=== PATIENT | female | born 1955 | race African-American/Black ===

== ENCOUNTER 2016-09-13 07:59 | Inpatient (IN) | payer OTHER ==
[~2016-09-13] VITALS: Ht 160 cm; Wt 64.4 kg
[~2016-09-13 07:59] MED LIST: ACET500T68 PO; ALPR0.25 PO; AMLO5TAB2 PO; AMLO5TAB4 PO; ASPI-482 PO; ASPI325T4 PO; ATOR40TA PO; ATOR40TA59 PO; ATORVASTATIN CA80 MG PO; CARV12.5 PO; CARV12.52 PO; CARV6.25 PO; CEFP100T PO; CEPH-264 PO; CIPR500T94 PO; DOCU100T11 PO; FLUC100T7 PO; FOLI0.8T3 PO; FURO-68 PO; FURO40TA4 PO; HYDR-2666 PO; HYDR-971 PO; HYDR10TA2 PO; INSU100C4 SQ; INSU100I13 SQ; INSU100I17 SQ; INSU100V13 SQ; INSU100V8 SQ; LEVE100S18 PO; LEVE500T56 PO; LEVE500T6 PO; LISI-334 PO; LISI10TA2 PO; Lasix PO; METO10TA81 PO; METO5TAB PO; METO5TAB55 PO; MYCO180T PO; MYCO360T PO; ONDA4SOL PO; PANT40GR PO; PANT40TA3 PO; PHOS250T3 PO; POTA10TA12 PO; PRED5TAB PO; SODI453. PO; TACR0.5C4 PO; TACR0.5P MC; TACR1CAP2 PO; TACR1CAP4 PO; VANC125C2 PO; [UNRECOGNIZED DRUG - OTHER]; [UNRECOGNIZED DRUG - OTHER] PO
--- NOTE | 2016-09-13 08:27 | PHYS DOC ---
Past Medical History Past Medical History: CAD, CHF, Diabetes-Type II, High Cholesterol, Hypertension, Renal Failure, Other Additional Past Medical Histor: MRSA Past Surgical History: Coronary Bypass Surgery, Other Additional Past Surgical Histo: kidney transplant,foot surgery,AV fistula placement Additional Information: quit smoking 1980 Alcohol Use: None Drug Use: None Adult General Chief Complaint Chief Complaint: MECHANICAL FALL HPI HPI Patient is a 61 year old female with history of diabetes, CAD, CHF, and kidney transplant who presents with report of mechanical fall at home. The fall was apparently witnessed by family. She did not lose consciousness. She reportedly fell down approximately 5-[address]. Upon arrival to the emergency department, the patient is unable to provide any details of her fall. She knows that she is at the hospital but repeatedly asks for her family to be contacted to let them know that she is at the hospital. It is unknown if this is her baseline mental status because family has not yet arrived. She complains of pain in the right elbow and reports a headache. She has abrasions to the right elbow and right shoulder. She has old abrasions to the forehead and knees. Review of Systems Review of Systems Respiratory: Denies shortness of breath. [] Cardiovascular: Denies chest pain. [] GI: Denies abdominal pain. [] Musculoskeletal: Denies back pain. Reports right elbow pain. Integument: Denies rash or skin lesions. Reports right elbow abrasion. Neurologic: Denies loss of consciousness. Reports headache. Unable to obtain complete ROS due to patient altered mental status. Current Medications Current Medications Current Medications Medications (Trade) Dose Ordered Sig/[facility] Start Time Stop Time Status Last Admin Dose Admin Fentanyl Citrate (Fentanyl 2ml Vial) 50 mcg PRN Q2HR PRN 09/13/16 10:45 09/14/16 10:44 Allergies Allergies Allergies Coded Allergies Type Severity Reaction Last Updated Verified I S O L A T I O N *CONTACT* Allergy Unknown 02/17/16 Yes No Known Medication Allergies Allergy Unknown 02/17/16 Yes Physical Exam Physical Exam Constitutional: Well developed, well nourished, no acute distress, non-toxic appearance. [] HENT: Normocephalic, atraumatic, oropharynx moist. Frequent lip smacking. Edentulous. Eyes: PERRLA, EOMI, conjunctiva normal, no discharge. [] Neck: Normal range of motion, no tenderness, supple, no stridor. C-collar applied. Cardiovascular: Heart rate regular rhythm, no murmur. [] Lungs & Thorax: Bilateral breath sounds clear to auscultation without wheezes, rales, or rhonchi. [] Abdomen: Bowel sounds normal, soft, no tenderness, no masses, no pulsatile masses. [] Skin: Warm, dry, no erythema, no rash. Abrasions to the right elbow lateral epicondyle and right shoulder over the A/C joint. Healing abrasions to the left forehead and left knee. Back: No midline tenderness, no CVA tenderness. [] Extremities: Right elbow tenderness, ROM intact, no edema. 2+ radial and ulnar pulses on the right. 2+ DP pulses bilaterally in the legs. There is mild deformity of the right wrist. Less than 2 second capillary refill in the fingers distally. Light touch sensation intact distally. There is an AV fistula in the left arm with palpable thrill. Neurologic: Alert and oriented X 2, normal motor function, normal sensory function. Decreased effort of left leg raise, however she can move the leg. It is uncertain if this is due to true neurologic deficit or difficulty following directions due to altered mental status. The patient must be redirected frequently to perform neurologic assessment tasks. She asks repetitive questions. Psychologic: Affect normal, judgement normal, mood normal. [] Current Patient Data Vital Signs Vital Signs Date Time Temp Pulse Resp B/P Pulse Ox O2 Delivery O2 Flow Rate FiO2 09/13/16 11:19 78 18 174/77 100 Room Air 09/13/16 08:06 97.6 97.6 Lab Values Laboratory Tests Test 09/13/16 08:40 09/13/16 08:55 Urine Collection Type U cath Urine Color Yellow Urine Clarity Clear Urine pH 5.5 Urine Specific [place] 1.015 Urine Protein Negativemg/dL (NEG-TRACE) Urine Glucose (UA) 250mg/dL (NEG) Urine Ketones (Stick) Negativemg/dL (NEG) Urine Blood Negative (NEG) Urine Nitrite Negative (NEG) Urine Bilirubin Negative (NEG) Urine Urobilinogen Dipstick 0.2mg/dL (0.2 mg/dL) Urine Leukocyte Esterase Negative (NEG) Urine RBC 0/HPF (0-2) Urine WBC 0/HPF (0-4) Urine Bacteria 0/HPF (0-FEW) White Blood Count 8.3x10^3/uL (4.0-11.0) Red Blood Count 4.51x10^6/uL (3.50-5.40) Hemoglobin 11.8g/dL (12.0-15.5) L Hematocrit 37.5% (36.0-47.0) Mean Corpuscular Volume 83fL (79-100) Mean Corpuscular Hemoglobin 26pg (25-35) Mean Corpuscular Hemoglobin Concent 32g/dL (31-37) Red Cell Distribution Width 15.7% (11.5-14.5) H Platelet Count 257x10^3/uL (140-400) Neutrophils (%) (Auto) 76% (31-73) H Lymphocytes (%) (Auto) 15% (24-48) L Monocytes (%) (Auto) 7% (0-9) Eosinophils (%) (Auto) 1% (0-3) Basophils (%) (Auto) 1% (0-3) Neutrophils # (Auto) 6.3x10^3uL (1.8-7.7) Lymphocytes # (Auto) 1.2x10^3/uL (1.0-4.8) Monocytes # (Auto) 0.6x10^3/uL (0.0-1.1) Eosinophils # (Auto) 0.1x10^3/uL (0.0-0.7) Basophils # (Auto) 0.1x10^3/uL (0.0-0.2) Prothrombin Time 12.6SEC (11.7-14.0) Prothrombin Time INR 1.0 (0.8-1.1) Sodium Level 137mmol/L (136-145) Potassium Level 4.9mmol/L (3.5-5.1) Chloride Level 100mmol/L (98-107) Carbon Dioxide Level 27mmol/L (21-32) Anion Gap 10 (6-14) Blood Urea Nitrogen 59mg/dL (7-20) H Creatinine 1.9mg/dL (0.6-1.0) H Estimated GFR (Cockcroft-Gault) 32.3 BUN/Creatinine Ratio 31 (6-20) H Glucose Level 361mg/dL (70-99) H Calcium Level 10.5mg/dL (8.5-10.1) H Magnesium Level 2.3mg/dL (1.8-2.4) Total Bilirubin 0.2mg/dL (0.2-1.0) Aspartate Amino Transferase (AST) 20U/L (15-37) Alanine Aminotransferase (ALT) 26U/L (14-59) Alkaline Phosphatase 90U/L (46-116) Creatine Kinase 59U/L (26-192) Creatine Kinase MB (Mass) 1.1ng/mL (0.0-3.6) Creatine Kinase MB Relative Index % (0-4) Troponin I Quantitative < 0.017ng/mL (0.000-0.055) RQ-Yyf-L-Type Natriuretic Peptide 787pg/mL (0-124) H Total Protein 7.3g/dL (6.4-8.2) Albumin 3.6g/dL (3.4-5.0) Albumin/Globulin Ratio 1.0 (1.0-1.7) Laboratory Tests 09/13/16 08:55 Laboratory Tests 09/13/16 08:55 EKG EKG EKG at 0844. Heart rate 78 bpm. Radiology/Procedures Radiology/Procedures REASON: AMS PATIENT FELL DOWN STAIRS PROCEDURE: WRIST 3V RIGHT Indication fall, pain. AP oblique and lateral views of the right wrist were obtained. There are traumatic fractures of the radial and ulnar metaphysis. There is an oblique fracture of the ulnar metaphysis with an associated ulnar styloid fracture. Slightly comminuted fracture of the radial metaphysis is noted. There is some impaction and angulation associated with the fracture fragments. Vascular calcification is noted. IMPRESSION: Traumatic fractures of the radial and ulnar metaphyses as outlined above REASON: AMS PATIENT FELL DOWN STAIRS TODAY PROCEDURE: ELBOW RIGHT 3V Indication pain associated with a fall. AP oblique and lateral views of the right elbow were obtained. No bony abnormality is seen. Significant joint fluid is not apparent. REASON: AMS PATIENT FELL DOWN STAIRS PROCEDURE: SHOULDER 2+V RIGHT Indication fall, pain. Internally and externally rotated views of the right shoulder as well as as a Y view were obtained. No fracture or acute bony finding is seen. A nodule in the right chest is noted similar to an examination 07/27/2016. IMPRESSION:: No acute bony finding REASON: AMS PATIENT FELL DOWN STAIRS TODAY PROCEDURE: PORTABLE CHEST 1V Indication change in mental status. Suspect CVA. Fall. Protocol study. A single view of the chest was obtained and is compared to an examination 07/27/2016. The heart and pulmonary vessels appear normal. The lungs are clear. There is no significant change in the appearance of the chest compared to the previous exam. A nodule in the right chest is noted similar to the previous exam. IMPRESSION: No acute finding apparent in the chest REASON: fall, AMS PROCEDURE: HEAD AND CERVICAL SPINE WO Indication change in mental status. Fall. Closed head injury. The head and cervical spine were evaluated. Images of the cervical spine were reformatted in the coronal and sagittal planes. The head is compared to an examination 02/16/2016. CT head: Findings Acute calvarial finding is not seen. Small polyps or retention cysts are noted in the right maxillary sinus. There is no subdural or epidural hematoma. Encephalomalacic area in the right parietal lobe, near the vertex, is noted appearing similar. An acute intracranial finding is not seen. A significant change when compared to the prior exam is not apparent. CT cervical spine: Findings. The lung apices are clear. There are nodules seen associated with the thyroid. These appear similar to an examination 03/16/2016 and could be further evaluated with ultrasound if clinically warranted. A significant soft tissue finding in the neck is not seen. Review of axial images demonstrates mild degenerative changes. Acute finding is not seen. Review of reformatted images in coronal and sagittal planes demonstrate similar findings. Small osteophytes are seen at multiple levels appearing similar to the examination 02/26/2016. IMPRESSION: Chronic changes in the cervical spine. No acute finding seen. Intracranially there are chronic changes. No acute finding is seen Thyroid nodules. Course & Med Decision Making Course & Med Decision Making Pertinent Labs and Imaging studies reviewed. (See chart for details) Patient is a 61-year-old female presents with report of mechanical fall down 5- 6 carpeted steps, witnessed by family at home. EMS reported that she did not lose consciousness. Upon arrival to the emergency department, the patient appears to have altered mental status. She is alert to self and place. She complains of headache and right elbow pain with abrasions to the right elbow and right shoulder. Family arrived at the bedside and reported that she did hit her head and did have a loss of consciousness. She was reportedly unresponsive for a few minutes with continued respiration. They report that she has frequent falls and is sometimes confused. She usually walks with a cane but refuses to use a walker. Evaluation in the emergency department reveals a comminuted fracture of the distal right radius and ulna. A sugar tong Ortho-Glass splint was applied to immobilize the fracture. There are no abnormalities on x-rays of the shoulder, elbow, or chest. CT of the head and C-spine are negative for acute changes. C- collar was removed after negative C-spine CT result. Patient's creatinine is elevated at 1.9, above her baseline. She is also a kidney transplant recipient. Initial troponin level is negative. There are no other significant laboratory abnormalities. The patient is admitted to the hospital by Dr. Moran, her primary care physician. He requests orthopedic consultation for the wrist fracture. This was added with admission bridge orders. The patient remained stable while in the emergency department. Dragon Disclaimer Dragon Disclaimer This electronic medical record was generated, in whole or in part, using a voice recognition dictation system. Departure Departure Impression: Primary Impression: Altered mental status Additional Impressions: Acute on chronic renal insufficiency Fracture of radius and ulna near wrist Disposition: 09 ADMITTED INPATIENT Admitting Physician: Augusto Moran Condition: STABLE Referrals: AUGUSTO MORAN MD (PCP) Problem Qualifiers Primary Impression: Altered mental status Altered mental status type: disorientation Qualified Code: R41.0 - Disorientation, unspecified Additional Impressions: Fracture of radius and ulna near wrist Encounter type: initial encounter Fracture type: closed Laterality: right Qualified Code: S52.501A - Unspecified fracture of the lower end of right radius, initial encounter for closed fracture JUAN F BOWERS Sep 13, 2016 08:27
--- NOTE | 2016-09-13 08:59 | ACF ---
Admission Forms Criteria MENTAL STATUS CHANGE Clinical Indications for Inpatient Care (Place 'X' for any and all applicable criteria): Ongoing inpatient care may be needed for ANY ONE of the following(1)(2)(3)(5)(6) : [X]I. Suspected serious etiology (eg, medical disorder, DOUBLE END TENONER SETTER event) of mental status change [ ]II. Danger to self or others not manageable at lower level of care [ ]III. Grave disability (eg, inability to perform self care necessary at lower level of care) [ ]IV. Agitation or inappropriate behavior interfering with care for primary condition (eg, attempting to discontinue lines or drains prematurely, unable to cooperate with respiratory care) [ ]V. Delirium [A] [D][E] as described by ANY ONE of the following(26): [ ]a) Delirium due to alcohol or sedative [F] withdrawal [ ]b) Delirium of uncertain etiology that has not responded to appropriate empiric treatment [ ]c) Delirium that prevents performance of a life-sustaining function (eg, feeding or hydrating oneself) [ ]. General contraindications and/or Inappropriate clinical situations for Observational Care in patients with Mental Status Change, when ANY ONE of the following is required: [ ]a) Prediction of prolongation of LOS based on ANY ONE of the following may be considered as a contraindication for observational care 2, 3, 4, 5, 6, 7, 8, 9, 10, 11 [ ]i) Age > 65 yrs. [ ]ii) Patient arriving by ambulance [ ]iii) Patient with high acuity [ ]iv) Patient requiring vital sign monitoring [ ]v) Patient on IV medication [ ]b) Systolic blood pressures 180mmHg 3,12 [ ]c) Patient with altered mental status including delirium and other alteration of consciousness, (3) [ ]d) Patient whose discharge disposition will be to a longterm home or rehabilitation home should not be managed in Emergency Department Observation Unit. CMS rule requires 3 days hospital stay before such placement.3,13 [ ]e) Patient with failure to thrive due to broad array of etiologies 3,16,17 [ ]f) Inability to ambulate 3,14 Extended stay beyond goal length of stay for the primary condition may be needed until ALL of the following are present(3)(5): [ ]a) Underlying medical etiology of mental status change is absent, or has been established and adequately treated [ ]b) Danger to self or others is absent or manageable at lower level of care. [ ]c) Behavior crisis management, including physical or chemical restraints, is not required or available at lower level of car [ ]d) Substance or alcohol withdrawal is absent or manageable at lower level of care. [ ]e) Behavioral symptoms (eg, agitation, somnolence, inappropriate behavior) are absent, or are manageable at lower level of care. The original [facility] content created by [facility] has been revised. The portions of the content which have been revised are identified through the use of italic text or in bold, and [facility] has neither reviewed nor approved the modified material. All other unmodified content is copyright [facility]. Please see references footnoted in the original [facility] edition 2016 Admission Criteria Met?: Yes JUAN J NGUYEN Sep 13, 2016 08:59
--- NOTE | 2016-09-13 09:01 | RAD ---
Indication fall, pain. AP oblique and lateral views of the right wrist were obtained. There are traumatic fractures of the radial and ulnar metaphysis. There is an oblique fracture of the ulnar metaphysis with an associated ulnar styloid fracture. Slightly comminuted fracture of the radial metaphysis is noted. There is some impaction and angulation associated with the fracture fragments. Vascular calcification is noted. IMPRESSION: Traumatic fractures of the radial and ulnar metaphyses as outlined above
--- NOTE | 2016-09-13 09:04 | RAD ---
Indication fall, pain. Internally and externally rotated views of the right shoulder as well as as a Y view were obtained. No fracture or acute bony finding is seen. A nodule in the right chest is noted similar to an examination 07/27/2016. IMPRESSION:: No acute bony finding
--- NOTE | 2016-09-13 09:08 | RAD ---
Indication pain associated with a fall. AP oblique and lateral views of the right elbow were obtained. No bony abnormality is seen. Significant joint fluid is not apparent.
--- NOTE | 2016-09-13 09:11 | RAD ---
Indication change in mental status. Suspect CVA. Fall. Protocol study. A single view of the chest was obtained and is compared to an examination 07/27/2016. The heart and pulmonary vessels appear normal. The lungs are clear. There is no significant change in the appearance of the chest compared to the previous exam. A nodule in the right chest is noted similar to the previous exam. IMPRESSION: No acute finding apparent in the chest
[2016-09-13 09:20] LABS: CALCIUM 10.5 mg/dL (8.5-10.1); CREATININE 1.9 mg/dL (0.6-1.0); GFR 32.3; POTASSIUM 4.9 mmol/L (3.5-5.1)
[2016-09-13 09:26] LABS: ALBUMIN 3.6 g/dL (3.4-5.0); MAGNESIUM 2.3 mg/dL (1.8-2.4); TOTAL BILIRUBIN 0.2 mg/dL (0.2-1.0); TOTAL PROTEIN 7.3 g/dL (6.4-8.2)
--- NOTE | 2016-09-13 09:27 | EKG ---
[facility] [address] [place] [address] Test Date: 2016-09-13 Test Time: 08:44:33 Pat Name: DIANA WATERS Department: Room: Gender: F Pipelaying Fitter: : [id number] Requested By: JUAN F BOWERS Order Number: [id number] Reading MD: Sandra Solis Measurements Intervals [place] Rate: 78 P: 36 NV: 150 QRS: 19 QRSD: 112 T: 141 QT: 386 QTc: 444 Interpretive Statements SINUS RHYTHM LEFT ATRIAL ABNORMALITY LVH WITH REPOLARIZATION ABNORMALITY ALSO CONSIDER MYOCARDIAL ISCHEMIA RI6.01 Unconfirmed report Compared to ECG 04/27/2016 19:28:16 Electronically Signed On 09-15-2016 23:56:28 [employer] MANAGER by Sandra Solis
[2016-09-13 09:34] LABS: CKMB MASS 1.1 ng/mL (0.0-3.6); CREATINE KINASE 59 U/L (26-192)
--- NOTE | 2016-09-13 09:39 | RAD ---
Indication change in mental status. Fall. Closed head injury. The head and cervical spine were evaluated. Images of the cervical spine were reformatted in the coronal and sagittal planes. The head is compared to an examination 02/16/2016. CT head: Findings Acute calvarial finding is not seen. Small polyps or retention cysts are noted in the right maxillary sinus. There is no subdural or epidural hematoma. Encephalomalacic area in the right parietal lobe, near the vertex, is noted appearing similar. An acute intracranial finding is not seen. A significant change when compared to the prior exam is not apparent. CT cervical spine: Findings. The lung apices are clear. There are nodules seen associated with the thyroid. These appear similar to an examination 03/16/2016 and could be further evaluated with ultrasound if clinically warranted. A significant soft tissue finding in the neck is not seen. Review of axial images demonstrates mild degenerative changes. Acute finding is not seen. Review of reformatted images in coronal and sagittal planes demonstrate similar findings. Small osteophytes are seen at multiple levels appearing similar to the examination 02/26/2016. IMPRESSION: Chronic changes in the cervical spine. No acute finding seen. Intracranially there are chronic changes. No acute finding is seen Thyroid nodules. PQRS Compliance Statement: One or more of the following individualized dose reduction techniques were utilized for this examination: 1. Automated exposure control 2. Adjustment of the mA and/or kV according to patient size 3. Use of iterative reconstruction technique
[2016-09-13 09:49] LABS: BILIRUBIN,URINE NEGATIVE (NEG); GLUCOSE,URINE 250 mg/dL (NEG); NITRITE,URINE NEGATIVE (NEG); PH,URINE 5.5; PROTEIN,URINE NEGATIVE (NEG-TRACE); UROBILINOGEN,URINE 0.2 mg/dL (0.2 mg/dL)
[2016-09-13 09:50] LABS: BASO # 0.1 x10^3/uL (0.0-0.2); BASO % 1 % (0-3); EOS % 1 % (0-3); HEMATOCRIT 37.5 % (36.0-47.0); HEMOGLOBIN 11.8 g/dL (12.0-15.5); LYMPH # 1.2 x10^3/uL (1.0-4.8); LYMPH % 15 % (24-48); MEAN CORPUSCULAR HEMOGLOBIN 26 pg (25-35); MEAN CORPUSCULAR HGB CONC 32 g/dL (31-37); MEAN CORPUSCULAR VOLUME 83 fL (79-100); MONO % 7 % (0-9); NEUT % 76 % (31-73); PLATELET COUNT 257 x10^3/uL (140-400); RED BLOOD COUNT 4.51 x10^6/uL (3.50-5.40); RED CELL DISTRIBUTION WIDTH 15.7 % (11.5-14.5); WHITE BLOOD COUNT 8.3 x10^3/uL (4.0-11.0)
[2016-09-13 10:12] LABS: BACTERIA,URINE 0 /HPF (0-FEW); RBC,URINE 0 /HPF (0-2); WBC,URINE 0 /HPF (0-4)
[2016-09-13 10:13] LABS: PROTHROMBIN TIME PATIENT 12.6 SEC (11.7-14.0)
[2016-09-13] MEDS ORDERED: FENTANYL PF 100 MCG/2 ML VIAL. IV PRN ×2 (10:15→10:45)
[2016-09-13 12:50] VITALS: BP 122/86
[2016-09-13 13:02] VITALS: BP 122/36
[2016-09-13] MEDS ORDERED: FURO-68 PO (14:17)
[2016-09-13] MEDS ORDERED: HYDR-2679 PO (14:17)
[2016-09-13 14:52] VITALS: BP 127/55
[2016-09-13] MEDS ORDERED: INSULIN ASPART 300 UNITS/3 ML INSULN.PEN SQ ONE (17:30)
[2016-09-13 19:20] VITALS: BP 120/56
[2016-09-13] MEDS ORDERED: ALPRAZOLAM 0.25 MG TABLET PO PRN (19:30)
[2016-09-13] MEDS ORDERED: DEXTROSE 50% 25 GM / 50ML DISP.SYRIN. IV PRN (19:45)
[2016-09-13] MEDS: IV NORMAL SALINE 1000ML BAG 1,000 ML IV SCH (21:06)
[2016-09-13] MEDS: MYCOPHENOLATE ACID 180 MG TABLET.DR. PO SCH (21:06)
[2016-09-13] MEDS: ATORVASTATIN CALCIUM 40 MG TABLET. PO SCH (21:06)
[2016-09-13] MEDS: HYDROCODONE/APAP 7.5/325MG TABLET. PO PRN (21:07)
[2016-09-13] MEDS: TACROLIMUS 0.5 MG CAPSULE PO SCH (21:07)
[2016-09-13] MEDS: LEVETIRACETAM 500 MG TABLET PO SCH (21:07)
[2016-09-13] MEDS: INSULIN DETEMIR 300 UNITS/3 ML INSULN.PEN. SQ SCH (21:21)
[2016-09-13 23:20] VITALS: BP 115/36
[2016-09-14] VITALS (13 sets, daily range): BP systolic 98–141; BP diastolic 41–75
[2016-09-14] MEDS: IV NORMAL SALINE 1000ML BAG 1,000 ML IV SCH ×2 (05:30→15:53)
[2016-09-14] MEDS ORDERED: MORPHINE SULFATE 2 MG/ML DISP.SYRIN. IV PRN (07:00)
[2016-09-14] MEDS ORDERED: LIDOCAINE 1% 1 ML SYRINGE. ID PRN (07:00)
[2016-09-14] MEDS ORDERED: HYDROMORPHONE 2 MG/ML VIAL. IV PRN (07:00)
[2016-09-14] MEDS: PANTOPRAZOLE 40 MG TABLET. PO SCH (07:00)
[2016-09-14] MEDS ORDERED: IV RINGERS,LACTATED 1000ML 1,000 ML IV SCH (07:00)
[2016-09-14] MEDS: CARVEDILOL 12.5 MG TABLET PO SCH ×2 (07:05→17:53)
[2016-09-14] MEDS: INSULIN ASPART 300 UNITS/3 ML INSULN.PEN SQ SCH ×7 (07:30→18:02)
[2016-09-14] MEDS: METOCLOPRAMIDE 5 MG TABLET PO SCH ×3 (07:30→17:52)
[2016-09-14] MEDS ORDERED: FENTANYL PF 100 MCG/2 ML VIAL. ONE (07:52)
[2016-09-14] MEDS ORDERED: DEXAMETHASONE SOD PHOS 20 MG/5 ML VIAL. ONE (07:53)
[2016-09-14] MEDS ORDERED: LIDOCAINE 2% 100 MG/5 ML DISP.SYRIN. ONE (07:53)
[2016-09-14] MEDS ORDERED: ONDANSETRON PF 4 MG/2 ML VIAL. ONE (07:53)
[2016-09-14] MEDS ORDERED: SEVOFLURANE 61 TO 120 MINUTES. IH ONE (07:53)
[2016-09-14] MEDS ORDERED: PROPOFOL 20 ML IV ONE (07:53)
[2016-09-14] MEDS ORDERED: INSULIN ASPART 300 UNITS/3 ML INSULN.PEN SQ ONE (08:00)
[2016-09-14] MEDS ORDERED: CEFAZOLIN 1GM IVPB FOR OMNI 50 ML IV ONE (08:14)
[2016-09-14] MEDS ORDERED: INSULIN ASPART 100 UNIT/ML 10ML VIAL. SQ ONE (08:15)
[2016-09-14] MEDS ORDERED: EPHEDRINE PF IN SALINE 50 MG/5 ML DISP.SYRIN. IV ONE (08:32)
[2016-09-14 08:35] LABS: BASO # 0.1 x10^3/uL (0.0-0.2); BASO % 1 % (0-3); EOS % 2 % (0-3); HEMATOCRIT 35.5 % (36.0-47.0); HEMOGLOBIN 10.9 g/dL (12.0-15.5); LYMPH # 1.9 x10^3/uL (1.0-4.8); LYMPH % 20 % (24-48); MEAN CORPUSCULAR HEMOGLOBIN 26 pg (25-35); MEAN CORPUSCULAR HGB CONC 31 g/dL (31-37); MEAN CORPUSCULAR VOLUME 85 fL (79-100); MONO % 11 % (0-9); NEUT % 67 % (31-73); PLATELET COUNT 211 x10^3/uL (140-400); RED BLOOD COUNT 4.17 x10^6/uL (3.50-5.40); WHITE BLOOD COUNT 9.1 x10^3/uL (4.0-11.0)
[2016-09-14 08:45] LABS: CREATININE 1.6 mg/dL (0.6-1.0); GFR 39.4; POTASSIUM 4.3 mmol/L (3.5-5.1)
[2016-09-14 08:52] LABS: CHOLESTEROL/HDL RATIO 3.9
[2016-09-14] MEDS: MYCOPHENOLATE ACID 180 MG TABLET.DR. PO SCH ×2 (09:00→20:45)
[2016-09-14] MEDS: LEVETIRACETAM 500 MG TABLET PO SCH ×2 (09:00→20:45)
[2016-09-14] MEDS ORDERED: FLUCONAZOLE 100 MG TABLET. PO SCH (09:00)
[2016-09-14] MEDS: FLUCONAZOLE 100 MG TABLET. PO SCH (09:00)
[2016-09-14] MEDS ORDERED: BUPIVACAINE 0.25% 50 ML VIAL. ONE (09:16)
--- NOTE | 2016-09-14 10:12 | PDOC ---
Provider Note Provider Note Pt seen.H&P dictated. #[id number] AUGUSTO BRUNER MD Sep 14, 2016 10:12
[2016-09-14] MEDS: LISINOPRIL 10 MG TABLET PO SCH (13:05)
[2016-09-14] MEDS: FOLIC/VIT B COMP W-C (RENAL) TABLET. PO SCH (13:05)
[2016-09-14] MEDS: PREDNISONE 5 MG TABLET PO SCH (13:06)
[2016-09-14] MEDS: TACROLIMUS 1 MG CAPSULE PO SCH (13:09)
--- NOTE | 2016-09-14 15:13 | HP ---
ADMIT DATE: 09/13/2016 LOCATION: [id number]. REASON FOR ADMISSION TO THE HOSPITAL: Mechanical fall, right wrist fracture. HISTORY OF PRESENT ILLNESS: The patient is a 61-year-old female, history of previous strokes, diabetes, insulin-dependent, bypass surgery, kidney transplant. She also has on and off confusion. She had a fall at home and fell down approximately 6 steps. X-ray showed wrist fracture. The patient was admitted to the hospital, seen by Orthopedics. The patient is scheduled for surgery today. PAST MEDICAL HISTORY: As mentioned, the patient has history of kidney transplant, hypertension, hyperlipidemia, heart bypass surgery, previous stroke. She also had histoplasmosis of the lung. PAST SURGICAL HISTORY: Had a kidney transplant, bypass surgery, AV fistulas, foot surgery, and bronchoscopy. PERSONAL HISTORY: History of smoking in the past, quit in 1980. Denies alcohol or street drugs. FAMILY HISTORY: Positive for diabetes, hypertension, kidney problems. SOCIAL HISTORY: She lives at home with her daughter. ALLERGIES: No known allergies. MEDICATIONS AT HOME: The patient is on aspirin 325 daily, Lasix 40 mg daily, Xanax 0.25 twice a day, atorvastatin 40 mg daily, Coreg 6.25 two tablets that is 12.5 mg twice a day, Diflucan 200 mg daily, folic acid, B complex daily, hydrocodone 1 q. 6, insulin Novolog 15 units 3 times daily, Levemir 40 units at bedtime, Keppra 500 mg twice a day, lisinopril 10 mg daily, Reglan 5 mg twice a day, mycophenolate 180 mg twice a day, Protonix 40 mg daily, prednisone 5 mg daily, Prograf 1 mg daily and 0.5 mg at bedtime. REVIEW OF SYMPTOMS: The patient has some confusion on and off. Denies any chest pain, shortness of breath, or nausea or vomiting. Rest of the 14 systems reviewed, negative. PHYSICAL EXAMINATION: VITAL SIGNS: At the time of admission showed temperature 97, pulse 80, respirations 17, blood pressure 127/55, 99 on room air. HEENT: Head is atraumatic. Pupils are equal. Oral cavity: No teeth. Dentures. NECK: Supple. Thyroid not enlarged. JVD not elevated. CHEST: Symmetrical, scar of heart surgery. LUNGS: Clear to auscultation. ABDOMEN: Soft. No mass palpable. Scar in the right lower abdomen from previous kidney transplant. EXTERNAL GENITALIA: No Mcl[place]. RECTAL: Deferred. EXTREMITIES: Scar in the ankle on the right. No edema, no calf tenderness. The patient has a splint, as well as tenderness and swelling in the right wrist area. LABORATORY DATA: Shows a white count of 8, hemoglobin 12, platelets 257. Electrolytes show sodium 137, potassium 4.9, chloride 100, bicarb 27, BUN 59, creatinine 1.9, glucose 361, magnesium 2.3. LFTs were normal. INR is 1.0. Urine was negative for nitrites and leuk esterase, WBC. CT of the head was negative for fracture. CT of the spine negative for fractures. X-ray of the shoulder negative. Right wrist shows fracture of the distal radial and ulnar metaphysis. Chest x-ray was negative. EKG with no acute ischemic changes. FINAL IMPRESSION: 1. Mechanical fall at home. 2. Right wrist fracture secondary to fall. 3. History of kidney transplant. 4. Diabetes, insulin-dependent. 5. History of previous stroke. 6. Coronary artery disease, history of bypass surgery. 7. Hypertension. 8. Hyperlipidemia. 9. Brittle diabetes. 10. History of histoplasmosis of the lung, on chronic suppressive treatment. PLAN: At this time, admit to hospital. Seen by Orthopedics, scheduled for surgery. Continue hydration, hold aspirin anticipating surgery. Hold Lasix because of the slight worsening of the kidney failure. We will monitor and see how she does and see how she improves. AUGUSTO BRUNER MD DR: DENISE/jeanie JOB#: [id number] / [id number] FERNANDO
[2016-09-14] MEDS: TACROLIMUS 0.5 MG CAPSULE PO SCH (20:45)
[2016-09-14] MEDS: ATORVASTATIN CALCIUM 40 MG TABLET. PO SCH (20:45)
[2016-09-14] MEDS: INSULIN DETEMIR 300 UNITS/3 ML INSULN.PEN. SQ SCH (20:50)
[2016-09-15] VITALS (7 sets, daily range): BP systolic 118–184; BP diastolic 57–110
[2016-09-15] MEDS: IV NORMAL SALINE 1000ML BAG 1,000 ML IV SCH ×3 (01:30→21:49)
--- NOTE | 2016-09-15 01:52 | OP ---
DATE OF SURGERY: 09/14/2016 PREOPERATIVE DIAGNOSIS: Displaced 3-part intraarticular right distal radius fracture. POSTOPERATIVE DIAGNOSIS: Displaced 3-part intraarticular right distal radius fracture. PROCEDURE: Operative reduction internal fixation 3 plus part intraarticular right distal radius fracture. SURGEON: Jonathan Heart M.D. ANESTHESIA: General endotracheal. ESTIMATED BLOOD LOSS: 10 mL. COMPLICATIONS: None. OPERATIVE INDICATIONS: The patient is a 61-year-old female with chronic renal failure, status post kidney implant, insulin-dependent diabetes as well as multiple medical issues that had broken her right dominant wrist in a fall. I had gone over with her risks, benefits, postoperative course of operative treatment, volar locked plating, possibility of infection, nerve or blood vessel damage, nonhealing, medical or other anesthetic complications among others and even under the best of circumstances possibility of continued pain, stiffness and possibility of nonhealing as well as of premature degenerative changes, possible to wrist. I had explained to her also that typically these possible complications would be minimized by anatomic reduction as possible. All her questions were answered. Consent was obtained that she agrees to proceed with operative evaluation and treatment. OPERATIVE TECHNIQUE: The patient was identified, procedure verified. The patient placed in the supine position on the operating table with a tourniquet placed on the right upper arm. After timeout was performed, the patient and procedure identified and verified, the right upper extremity was previously prepped and draped in standard sterile fashion and was then exsanguinated by Esmarch bandage. Tourniquet inflated to 250 mmHg and a standard Bran volar approach was carried out to the right distal radius. The subperiosteal dissection was carried out and a small narrow Biomet distal radial locking plate was held in place with a 3.5 bicortical screw in the sliding hole. Plate was positioned as desired fluoroscopically and reduction was obtained and the placement distally checked as well as reduction maintained with a K-wire in the distal portion of plate. Distal locking screws were placed under fluoroscopic guidance and verified to be in good position in the radial styloid and supportive, but not in the joint surface. Proximal row screws were then placed as well and the shaft screws were used in a nonlocking fashion to complete the fixation. Excellent fixation noted under fluoroscopic guidance. The ulna was noted to be as well positioned with anatomic reduction under fluoroscopic guidance as well. Thorough irrigation carried out with normal saline solution. Subcutaneous closure accomplished with buried Vicryl sutures, subcuticular Monocryl, Steri-Strips and Mastisol were placed followed by a fiberglass volar splint. Fingers were noted to be warm and pink following deflation of the tourniquet after a total tourniquet time of approximately one hour. The patient was extubated and transferred to postop holding in stable condition having tolerated the procedure well. JONATHAN HEART MD DR: FER/jeanie JOB#: [id number] / [id number]
--- NOTE | 2016-09-15 06:34 | PDOC ---
BETTYGretchenDARIA LOCKE EDI COORDINATOR 09/15/16 0634: IM PROGRESS NOTES- Subjective Subjective awake, OOB to chair, pain R arm continues Objective Objective no distress Vitals Vital Signs Date Time Temp Pulse Resp B/P Pulse Ox O2 Delivery O2 Flow Rate FiO2 09/15/16 02:56 98.0 85 18 118/68 100 Room Air 98.0 09/14/16 09:58 10 Input & Output Intake and Output 09/15/16 07:00 Intake Total 1800 ml Output Total 1150 ml Balance 650 ml Intake Oral 1150 ml IV Total 650 ml Output Urine Total 1150 ml Estimated Blood Loss 0 ml Physical Exam Physical Exam General appearance - alert, well appearing, and in no distress Mental Status - alert, oriented to person, place, and time, affect appropriate to mood Head - normal Chest - clear to auscultation, no wheezes, rales or rhonchi Heart - S1 and S2 normal Abdomen - soft, nontender, nondistended, BS+ Neurological -no acute focal neurological deficits noted Musculoskeletal - no muscular tenderness noted Extremities - no pedal edema Cast R lower forearm, fingers cool (bilaterally), minimal swelling, +sensation/movement Skin - warm and dry Labs Laboratory Tests Test 09/13/16 08:40 09/13/16 08:55 09/13/16 17:05 09/13/16 18:30 Urine Collection Type U cath Urine Color Yellow Urine Clarity Clear Urine pH 5.5 Urine Specific [place] 1.015 Urine Protein Negativemg/dL (NEG-TRACE) Urine Glucose (UA) 250mg/dL (NEG) Urine Ketones (Stick) Negativemg/dL (NEG) Urine Blood Negative (NEG) Urine Nitrite Negative (NEG) Urine Bilirubin Negative (NEG) Urine Urobilinogen Dipstick 0.2mg/dL (0.2 mg/dL) Urine Leukocyte Esterase Negative (NEG) Urine RBC 0/HPF (0-2) Urine WBC 0/HPF (0-4) Urine Bacteria 0/HPF (0-FEW) White Blood Count 8.3x10^3/uL (4.0-11.0) Red Blood Count 4.51x10^6/uL (3.50-5.40) Hemoglobin 11.8g/dL (12.0-15.5) Hematocrit 37.5% (36.0-47.0) Mean Corpuscular Volume 83fL (79-100) Mean Corpuscular Hemoglobin 26pg (25-35) Mean Corpuscular Hemoglobin Concent 32g/dL (31-37) Red Cell Distribution Width 15.7% (11.5-14.5) Platelet Count 257x10^3/uL (140-400) Neutrophils (%) (Auto) 76% (31-73) Lymphocytes (%) (Auto) 15% (24-48) Monocytes (%) (Auto) 7% (0-9) Eosinophils (%) (Auto) 1% (0-3) Basophils (%) (Auto) 1% (0-3) Neutrophils # (Auto) 6.3x10^3uL (1.8-7.7) Lymphocytes # (Auto) 1.2x10^3/uL (1.0-4.8) Monocytes # (Auto) 0.6x10^3/uL (0.0-1.1) Eosinophils # (Auto) 0.1x10^3/uL (0.0-0.7) Basophils # (Auto) 0.1x10^3/uL (0.0-0.2) Prothrombin Time 12.6SEC (11.7-14.0) Prothromb Time International Ratio 1.0 (0.8-1.1) Sodium Level 137mmol/L (136-145) Potassium Level 4.9mmol/L (3.5-5.1) Chloride Level 100mmol/L (98-107) Carbon Dioxide Level 27mmol/L (21-32) Anion Gap 10 (6-14) Blood Urea Nitrogen 59mg/dL (7-20) Creatinine 1.9mg/dL (0.6-1.0) Estimated GFR (Cockcroft-Gault) 32.3 BUN/Creatinine Ratio 31 (6-20) Glucose Level 361mg/dL (70-99) Calcium Level 10.5mg/dL (8.5-10.1) Magnesium Level 2.3mg/dL (1.8-2.4) Total Bilirubin 0.2mg/dL (0.2-1.0) Aspartate Amino Transf (AST/SGOT) 20U/L (15-37) Alanine Aminotransferase (ALT/SGPT) 26U/L (14-59) Alkaline Phosphatase 90U/L (46-116) Creatine Kinase 59U/L (26-192) Creatine Kinase MB (Mass) 1.1ng/mL (0.0-3.6) Creatine Kinase MB Relative Index % (0-4) Troponin I Quantitative < 0.017ng/mL (0.000-0.055) < 0.017ng/mL (0.000-0.055) AZ-Riz-I-Type Natriuretic Peptide 787pg/mL (0-124) Total Protein 7.3g/dL (6.4-8.2) Albumin 3.6g/dL (3.4-5.0) Albumin/Globulin Ratio 1.0 (1.0-1.7) Glucose (Fingerstick) 423mg/dL (70-99) Test 09/13/16 21:08 09/14/16 07:03 09/14/16 08:05 09/14/16 09:46 Glucose (Fingerstick) 310mg/dL (70-99) 219mg/dL (70-99) 179mg/dL (70-99) White Blood Count 9.1x10^3/uL (4.0-11.0) Red Blood Count 4.17x10^6/uL (3.50-5.40) Hemoglobin 10.9g/dL (12.0-15.5) Hematocrit 35.5% (36.0-47.0) Mean Corpuscular Volume 85fL (79-100) Mean Corpuscular Hemoglobin 26pg (25-35) Mean Corpuscular Hemoglobin Concent 31g/dL (31-37) Red Cell Distribution Width 16.0% (11.5-14.5) Platelet Count 211x10^3/uL (140-400) Neutrophils (%) (Auto) 67% (31-73) Lymphocytes (%) (Auto) 20% (24-48) Monocytes (%) (Auto) 11% (0-9) Eosinophils (%) (Auto) 2% (0-3) Basophils (%) (Auto) 1% (0-3) Neutrophils # (Auto) 6.1x10^3uL (1.8-7.7) Lymphocytes # (Auto) 1.9x10^3/uL (1.0-4.8) Monocytes # (Auto) 1.0x10^3/uL (0.0-1.1) Eosinophils # (Auto) 0.2x10^3/uL (0.0-0.7) Basophils # (Auto) 0.1x10^3/uL (0.0-0.2) Sodium Level 140mmol/L (136-145) Potassium Level 4.3mmol/L (3.5-5.1) Chloride Level 105mmol/L (98-107) Carbon Dioxide Level 28mmol/L (21-32) Anion Gap 7 (6-14) Blood Urea Nitrogen 49mg/dL (7-20) Creatinine 1.6mg/dL (0.6-1.0) Estimated GFR (Cockcroft-Gault) 39.4 Glucose Level 207mg/dL (70-99) Hemoglobin A1c 8.9% (4.8-5.6) Calcium Level 10.0mg/dL (8.5-10.1) Troponin I Quantitative < 0.017ng/mL (0.000-0.055) Triglycerides Level 240mg/dL (0-150) Cholesterol Level 234mg/dL (0-200) LDL Cholesterol, Calculated 126mg/dL (0-100) VLDL Cholesterol, Calculated 48mg/dL (0-40) HDL Cholesterol 60mg/dL (40-60) Cholesterol/HDL Ratio 3.9 Thyroid Stimulating Hormone (TSH) 0.798uIU/mL (0.358-3.74) Test 09/14/16 11:30 09/14/16 16:47 09/14/16 20:43 Glucose (Fingerstick) 169mg/dL (70-99) 164mg/dL (70-99) 232mg/dL (70-99) Laboratory Tests Test 09/14/16 07:03 09/14/16 08:05 09/14/16 09:46 09/14/16 11:30 Glucose (Fingerstick) 219mg/dL (70-99) 179mg/dL (70-99) 169mg/dL (70-99) White Blood Count 9.1x10^3/uL (4.0-11.0) Red Blood Count 4.17x10^6/uL (3.50-5.40) Hemoglobin 10.9g/dL (12.0-15.5) Hematocrit 35.5% (36.0-47.0) Mean Corpuscular Volume 85fL (79-100) Mean Corpuscular Hemoglobin 26pg (25-35) Mean Corpuscular Hemoglobin Concent 31g/dL (31-37) Red Cell Distribution Width 16.0% (11.5-14.5) Platelet Count 211x10^3/uL (140-400) Neutrophils (%) (Auto) 67% (31-73) Lymphocytes (%) (Auto) 20% (24-48) Monocytes (%) (Auto) 11% (0-9) Eosinophils (%) (Auto) 2% (0-3) Basophils (%) (Auto) 1% (0-3) Neutrophils # (Auto) 6.1x10^3uL (1.8-7.7) Lymphocytes # (Auto) 1.9x10^3/uL (1.0-4.8) Monocytes # (Auto) 1.0x10^3/uL (0.0-1.1) Eosinophils # (Auto) 0.2x10^3/uL (0.0-0.7) Basophils # (Auto) 0.1x10^3/uL (0.0-0.2) Sodium Level 140mmol/L (136-145) Potassium Level 4.3mmol/L (3.5-5.1) Chloride Level 105mmol/L (98-107) Carbon Dioxide Level 28mmol/L (21-32) Anion Gap 7 (6-14) Blood Urea Nitrogen 49mg/dL (7-20) Creatinine 1.6mg/dL (0.6-1.0) Estimated GFR (Cockcroft-Gault) 39.4 Glucose Level 207mg/dL (70-99) Hemoglobin A1c 8.9% (4.8-5.6) Calcium Level 10.0mg/dL (8.5-10.1) Troponin I Quantitative < 0.017ng/mL (0.000-0.055) Triglycerides Level 240mg/dL (0-150) Cholesterol Level 234mg/dL (0-200) LDL Cholesterol, Calculated 126mg/dL (0-100) VLDL Cholesterol, Calculated 48mg/dL (0-40) HDL Cholesterol 60mg/dL (40-60) Cholesterol/HDL Ratio 3.9 Thyroid Stimulating Hormone (TSH) 0.798uIU/mL (0.358-3.74) Test 09/14/16 16:47 09/14/16 20:43 Glucose (Fingerstick) 164mg/dL (70-99) 232mg/dL (70-99) Meds Current Medications Bupivacaine HCl (Marcaine 0.25%) 50 ml STK-MED ONCE .ROUTE Last administered on 09/14/16 09:25; Start 09/14/16 at 09:16; Stop 09/14/16 at 09:17; Status DC Carvedilol (Coreg) 12.5 mg BIDWMEALS PO Last administered on 09/14/16 17:53; Start 09/14/16 at 08:00 Cefazolin Sodium (Ancef 1gm Ivpb For Omni) 50 ml @ As Directed STK-MED ONCE IV ; Start 09/14/16 at 08:14; Stop 09/14/16 at 08:15; Status DC Dexamethasone Sodium Phosphate (Decadron) 20 mg STK-MED ONCE .ROUTE ; Start at 07:53; Stop 09/14/16 at 07:54; Status DC Ephedrine Sulfate 50 mg STK-MED ONCE IV ; Start 09/14/16 at 08:32; Stop at 08:33; Status DC Fentanyl Citrate (Fentanyl 2ml Vial) 100 mcg STK-MED ONCE .ROUTE ; Start at 07:52; Stop 09/14/16 at 07:53; Status DC Fluconazole (Diflucan) 200 mg DAILY PO ; Start 09/14/16 at 09:00 Fluconazole (Diflucan) 200 mg DAILY PO ; Start 09/14/16 at 09:00; Status UNV Folic Acid/ Multivitamins/Vit B12 (Nephro-Stacey) 1 tab DAILY PO Last administered on 09/14/16 13:05; Start 09/14/16 at 09:00 Hydromorphone HCl (Dilaudid) 0.5 mg PRN Q10MIN PRN IV SEVERE PAIN, Second choice; Start 09/14/16 at 07:00; Stop 09/15/16 at 06:59 Insulin Aspart (Novolog) 0-7 UNITS TIDWMEALS SQ Last administered on 09/14/16 18:01; Start 09/14/16 at 08:00 Insulin Aspart (Novolog) 2 units 1X ONCE SQ ; Start 09/14/16 at 08:00; Stop at 08:01; Status Cancel Insulin Aspart (Novolog) 10 units TIDWMEALS SQ Last administered on 09/14/16 18:02; Start 09/14/16 at 07:30 Insulin Aspart 2 unit 2 unit 1X ONCE SQ Last administered on 09/14/16 08:11; Start 09/14/16 at 08:15; Stop 09/14/16 at 08:16; Status DC Lactated Ringer's (Iv Lactated Ringers) 1,000 ml @ 30 mls/hr Q24H IV ; Start at 07:00; Stop 09/14/16 at 18:59; Status DC Lidocaine HCl 2 ml 1X PRN PRN ID IV START; Start 09/14/16 at 07:00; Stop at 06:59 Lidocaine HCl 100 mg STK-MED ONCE .ROUTE ; Start 09/14/16 at 07:53; Stop at 07:54; Status DC Lisinopril (Prinivil) 10 mg DAILY PO Last administered on 09/14/16 13:05; Start 09/14/16 at 09:00 Metoclopramide HCl (Reglan) 5 mg TIDAC PO Last administered on 09/14/16 17:52 ; Start 09/14/16 at 07:30 Morphine Sulfate 1 mg 1 mg PRN Q10MIN PRN IV SEVERE PAIN; Start 09/14/16 at 07: 00; Stop 09/15/16 at 06:59 Ondansetron HCl (Zofran) 4 mg STK-MED ONCE .ROUTE ; Start 09/14/16 at 07:53; Stop 09/14/16 at 07:54; Status DC Pantoprazole Sodium (Protonix) 40 mg DAILY07 PO ; Start 09/14/16 at 07:00 Prednisone (Prednisone) 5 mg DAILY PO Last administered on 09/14/16 13:06; Start 09/14/16 at 09:00 Propofol (Diprivan) 20 ml @ As Directed STK-MED ONCE IV ; Start 09/14/16 at 07: 53; Stop 09/14/16 at 07:54; Status DC Sevoflurane 60 ml 60 ml STK-MED ONCE IH ; Start 09/14/16 at 07:53; Stop at 07:54; Status DC Tacrolimus (Prograf) 1 mg DAILY PO Last administered on 09/14/16t 13:09; Start 09/14/16 at 09:00 Assessment Assessment FINAL IMPRESSION: 1. Mechanical fall at home. 2. Right wrist fracture secondary to fall. 3. History of kidney transplant. 4. Diabetes, insulin-dependent. 5. History of previous stroke. 6. Coronary artery disease, history of bypass surgery. 7. Hypertension. 8. Hyperlipidemia. 9. Brittle diabetes. 10. History of histoplasmosis of the lung, on chronic suppressive treatment. PLAN: fall with traumatic RW fracture s/o ORIF 09/14 ortho consult CKD III Admit BUN 59 09/15 49 Cr 1.9 1.6 IVF NS 100cc/hr DM II FSBS/SSI BS 164-232 anemia CD Admit Hgb 11.8 09/15 10.9 DVT/GI prophylaxis SCD/BRENT OOB/ambulate PPI For further plan of care, please refer to the orders Plan Plan For more details regarding further plans, please refer to the orders. BLAIRE PARTIDA MD 09/15/16 1110: IM PROGRESS NOTES- Assessment Assessment The patient was seen and examined by me. Chart reviewed and plan of care formulated. Discussed with, reviewed and agree with OLERICULTURE TEACHER's notes, plan of care and orders with modifications as necessary. For more details regarding further plans, please refer to the orders. DARIA GALARZA APRN Sep 15, 2016 06:34 BLAIRE PARTIDA MD Sep 15, 2016 11:10
[2016-09-15] MEDS: PANTOPRAZOLE 40 MG TABLET. PO SCH (06:36)
[2016-09-15] MEDS: METOCLOPRAMIDE 5 MG TABLET PO SCH ×3 (06:36→15:59)
[2016-09-15 07:21] LABS: BASO % 0 % (0-3); EOS % 0 % (0-3); HEMATOCRIT 34.8 % (36.0-47.0); HEMOGLOBIN 10.5 g/dL (12.0-15.5); LYMPH # 0.8 x10^3/uL (1.0-4.8); LYMPH % 6 % (24-48); MEAN CORPUSCULAR HEMOGLOBIN 26 pg (25-35); MEAN CORPUSCULAR HGB CONC 30 g/dL (31-37); MEAN CORPUSCULAR VOLUME 85 fL (79-100); MONO % 7 % (0-9); NEUT % 87 % (31-73); PLATELET COUNT 227 x10^3/uL (140-400); RED BLOOD COUNT 4.09 x10^6/uL (3.50-5.40); RED CELL DISTRIBUTION WIDTH 15.8 % (11.5-14.5)
[2016-09-15 07:27] LABS: CALCIUM 9.9 mg/dL (8.5-10.1); CREATININE 1.1 mg/dL (0.6-1.0); GFR 60.7; POTASSIUM 4.9 mmol/L (3.5-5.1)
[2016-09-15] MEDS ORDERED: INSULIN ASPART 300 UNITS/3 ML INSULN.PEN SQ ONE (08:00)
[2016-09-15] MEDS: INSULIN ASPART 300 UNITS/3 ML INSULN.PEN SQ SCH ×6 (08:00→17:26)
[2016-09-15] MEDS: PREDNISONE 5 MG TABLET PO SCH (08:48)
[2016-09-15] MEDS: CARVEDILOL 12.5 MG TABLET PO SCH ×2 (08:49→15:59)
[2016-09-15] MEDS: LEVETIRACETAM 500 MG TABLET PO SCH ×2 (08:49→20:55)
[2016-09-15] MEDS: FOLIC/VIT B COMP W-C (RENAL) TABLET. PO SCH (08:49)
[2016-09-15] MEDS: FLUCONAZOLE 100 MG TABLET. PO SCH (08:49)
[2016-09-15] MEDS: MYCOPHENOLATE ACID 180 MG TABLET.DR. PO SCH ×2 (08:49→20:54)
[2016-09-15] MEDS: TACROLIMUS 1 MG CAPSULE PO SCH (08:49)
[2016-09-15] MEDS: LISINOPRIL 10 MG TABLET PO SCH (08:50)
[2016-09-15 11:30] LABS: % BASOS 1 % (0-3); PLT ESTIMATE ADEQUATE (ADEQUATE)
[2016-09-15 11:32] LABS: ANISOCYTOSIS SLIGHT
[2016-09-15] MEDS: FUROSEMIDE 40 MG TABLET PO SCH (12:11)
--- NOTE | 2016-09-15 16:41 | CONS ---
DATE OF CONSULTATION: 09/14/2016 REASON FOR CONSULTATION: Right wrist fracture. HISTORY OF PRESENT ILLNESS: The patient is a 61-year-old female with multiple medical issues who fell down several steps at home sustaining a right wrist fracture. PAST MEDICAL HISTORY: Significant for history of stroke, histoplasmosis, insulin-dependent diabetes, kidney failure, hypertension, hyperlipidemia and previous heart attack. PAST SURGICAL HISTORY: Significant for kidney transplantation, coronary artery bypass grafting, arteriovenous fistulas for dialysis, previous foot surgery and a bronchoscopy to evaluate her lung. SOCIAL HISTORY: The patient was a previous smoker, quit in 1980. Denies alcohol or drug use. She ambulates independently. Lives at home with her daughter. FAMILY HISTORY: Significant for diabetes, kidney problems and hypertension. ALLERGIES: The patient has no known drug allergies. MEDICATIONS: List is reviewed. REVIEW OF SYSTEMS: Denies any head injury. She is certainly alert and oriented now, but has some periodic confusion according to her daughter. Denies any chest pain, shortness of breath, nausea, vomiting, abdominal pain, focal weakness in the extremities, numbness, tingling. No neck or back pain other than the baseline. No visual changes, headache, change in bowel or bladder habits. PHYSICAL EXAMINATION: GENERAL: A 61-year-old female that is very thin. HEENT: Atraumatic, normocephalic and has dentures, but they are removed. EXTREMITIES: Examination of the upper extremities, she has good shoulder and elbow motion bilaterally. Deformity of the right dominant wrist. She is able to flex and extend the fingers minimally but limited secondary to pain. Normal motion and stability of the contralateral left wrist. She has good hip, knee, and ankle range of motion bilaterally with intact motor function, distal pulses, sensation, reflexes, skin in both lower extremities throughout. X-rays of the right wrist show a comminuted intraarticular displaced fracture of the right distal radius and a distal oblique ulnar fracture. TREATMENT PLAN: I went over with the patient and was in communication with her daughter who she lives with and described the injuries to them and the rationale for fixation of her wrist and even under the best of circumstances, expectation of some stiffness, pain and limitations in her mobility of the wrist. The rationale for operative fixation to anatomically as possible reconstruct the wrist and the typical recovery process. The healing is likely to delay due to her medical issues which would put her at some increased risk medical and surgical aparicio as well as the possibility of infection, nerve or blood vessel damage, medical or other anesthetic complications among others. All her questions were answered. She wants to proceed with surgical evaluation and treatment, which will occur today. HERMELINDA MONROY MD DR: FER/jeanie JOB#: [id number] / [id number]
[2016-09-15] MEDS ORDERED: BISACODYL 10 MG SUPP.RECT PR PRN (17:45)
[2016-09-15] MEDS ORDERED: MAGNESIUM HYDROXIDE 2,400 MG/30 ML ORAL.SUSP. PO PRN (17:45)
[2016-09-15] MEDS: TACROLIMUS 0.5 MG CAPSULE PO SCH (20:54)
[2016-09-15] MEDS: ATORVASTATIN CALCIUM 40 MG TABLET. PO SCH (20:54)
[2016-09-15] MEDS: HYDROCODONE/APAP 7.5/325MG TABLET. PO PRN (20:55)
[2016-09-15] MEDS: INSULIN DETEMIR 300 UNITS/3 ML INSULN.PEN. SQ SCH (21:51)
--- NOTE | 2016-09-16 01:31 | CONS ---
DATE OF CONSULTATION: 09/15/2016 ATTENDING PHYSICIAN: Dr. Moran. REASON FOR CONSULTATION: The patient was seen at the request of Dr. Moran for rehab evaluation. HISTORY OF PRESENT ILLNESS: This is a 61-year-old female known to me in the past with history of previous cerebrovascular accident with residual left hemianopsia; diabetes mellitus with peripheral neuropathy, insulin dependent; coronary artery bypass surgery; and kidney transplant. The patient apparently fell while managing steps at home and sustained a fracture of right distal radius and ulna, and since admission on 09/13/2016, she underwent open reduction and internal fixation. She had splint applied to her right wrist at the present time. The patient is status post kidney transplant, hypertension, hyperlipidemia and histoplasmosis of lung. The patient lives at home with her daughter who works during the daytime, but somebody from her family will be there most of the time and she is eager to go home. She had a flight of stairs with a railing to manage. She usually uses a cane or walker to walk. She is not known allergic to any medication. She denies any significant pain at the present time. PHYSICAL EXAMINATION: Today revealed a middle-aged female. She is alert and oriented to place and person, follows commands appropriately and moves all 4 extremities voluntarily where she had 4/5 to 4+/5 grade muscle strength with relative weakness of dorsiflexor muscles of both feet. Deep tendon reflexes are decreased overall with absent ankle jerks, and she had decreased touch and pinprick sensation over a [id number] distribution. She had a right wrist in a splint. She had long finger nails. The patient is independent with the bed mobility and transfers. Once up, she walks with somewhat wide-based gait using a roller walker. I did not see any loss of balance, but she walks with a wide-based gait. She had skin abrasions over the posterior aspect of her right elbow. She is receiving IV fluids. ASSESSMENT: Mobility limitations in a patient with a recent fall on the stairs and fracture of right distal radius and ulna, status post open reduction and internal fixation in a patient with known diabetes mellitus with peripheral neuropathy, hypertension, hyperlipidemia, old cerebrovascular accident without any residual deficits, coronary artery bypass graft, histoplasmosis of lung and previous kidney transplant. RECOMMENDATIONS: If her family feels comfortable, she may go home with home health followup or if the family papers, she can go to a senior living care unit. Dr. Moran, I appreciate asking me to participate in the care of this interesting patient. I will be glad to follow her with you as needed for her rehabilitation. RADHA HUITRON MD DR: DEEDEE/jeanie JOB#: [id number] / [id number]
[2016-09-16 03:00] VITALS: BP 120/61
[2016-09-16] MEDS: PANTOPRAZOLE 40 MG TABLET. PO SCH (05:52)
[2016-09-16 07:00] VITALS: BP 164/67
[2016-09-16] MEDS: INSULIN ASPART 300 UNITS/3 ML INSULN.PEN SQ SCH ×3 (08:00→12:26)
--- NOTE | 2016-09-16 08:02 | PDOC ---
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 09/16/16 0802: IM PROGRESS NOTES- Subjective Subjective awake, OOB to chair, pain R arm continues Objective Objective no distress Vitals Vital Signs Date Time Temp Pulse Resp B/P Pulse Ox O2 Delivery O2 Flow Rate FiO2 09/16/16 03:00 98.1 83 17 120/61 100 Room Air 98.1 Input & Output Intake and Output 09/16/16 07:00 Intake Total 2457 ml Output Total 1200 ml Balance 1257 ml Intake Oral 550 ml IV Total 1907 ml Output Urine Total 1200 ml # Voids 3 # Bowel Movements 1 Physical Exam Physical Exam General appearance - alert, well appearing, and in no distress Mental Status - alert, oriented to person, place, and time, affect appropriate to mood Head - normal Chest - clear to auscultation, no wheezes, rales or rhonchi Heart - S1 and S2 normal Abdomen - soft, nontender, nondistended, BS+ Neurological -no acute focal neurological deficits noted Musculoskeletal - no muscular tenderness noted Extremities - no pedal edema Cast R lower forearm, fingers cool (bilaterally), minimal swelling, +sensation/movement Skin - warm and dry Labs Laboratory Tests Test 09/14/16 08:05 09/14/16 09:46 09/14/16 11:30 09/14/16 16:47 White Blood Count 9.1x10^3/uL (4.0-11.0) Red Blood Count 4.17x10^6/uL (3.50-5.40) Hemoglobin 10.9g/dL (12.0-15.5) Hematocrit 35.5% (36.0-47.0) Mean Corpuscular Volume 85fL (79-100) Mean Corpuscular Hemoglobin 26pg (25-35) Mean Corpuscular Hemoglobin Concent 31g/dL (31-37) Red Cell Distribution Width 16.0% (11.5-14.5) Platelet Count 211x10^3/uL (140-400) Neutrophils (%) (Auto) 67% (31-73) Lymphocytes (%) (Auto) 20% (24-48) Monocytes (%) (Auto) 11% (0-9) Eosinophils (%) (Auto) 2% (0-3) Basophils (%) (Auto) 1% (0-3) Neutrophils # (Auto) 6.1x10^3uL (1.8-7.7) Lymphocytes # (Auto) 1.9x10^3/uL (1.0-4.8) Monocytes # (Auto) 1.0x10^3/uL (0.0-1.1) Eosinophils # (Auto) 0.2x10^3/uL (0.0-0.7) Basophils # (Auto) 0.1x10^3/uL (0.0-0.2) Sodium Level 140mmol/L (136-145) Potassium Level 4.3mmol/L (3.5-5.1) Chloride Level 105mmol/L (98-107) Carbon Dioxide Level 28mmol/L (21-32) Anion Gap 7 (6-14) Blood Urea Nitrogen 49mg/dL (7-20) Creatinine 1.6mg/dL (0.6-1.0) Estimated GFR (Cockcroft-Gault) 39.4 Glucose Level 207mg/dL (70-99) Hemoglobin A1c 8.9% (4.8-5.6) Calcium Level 10.0mg/dL (8.5-10.1) Troponin I Quantitative < 0.017ng/mL (0.000-0.055) Triglycerides Level 240mg/dL (0-150) Cholesterol Level 234mg/dL (0-200) LDL Cholesterol, Calculated 126mg/dL (0-100) VLDL Cholesterol, Calculated 48mg/dL (0-40) HDL Cholesterol 60mg/dL (40-60) Cholesterol/HDL Ratio 3.9 Thyroid Stimulating Hormone (TSH) 0.798uIU/mL (0.358-3.74) Glucose (Fingerstick) 179mg/dL (70-99) 169mg/dL (70-99) 164mg/dL (70-99) Test 09/14/16 20:43 09/15/16 06:25 09/15/16 07:14 09/15/16 11:54 Glucose (Fingerstick) 232mg/dL (70-99) 387mg/dL (70-99) 334mg/dL (70-99) White Blood Count 14.0x10^3/uL (4.0-11.0) Red Blood Count 4.09x10^6/uL (3.50-5.40) Hemoglobin 10.5g/dL (12.0-15.5) Hematocrit 34.8% (36.0-47.0) Mean Corpuscular Volume 85fL (79-100) Mean Corpuscular Hemoglobin 26pg (25-35) Mean Corpuscular Hemoglobin Concent 30g/dL (31-37) Red Cell Distribution Width 15.8% (11.5-14.5) Platelet Count 227x10^3/uL (140-400) Neutrophils (%) (Auto) 87% (31-73) Lymphocytes (%) (Auto) 6% (24-48) Monocytes (%) (Auto) 7% (0-9) Eosinophils (%) (Auto) 0% (0-3) Basophils (%) (Auto) 0% (0-3) Neutrophils # (Auto) 12.2x10^3uL (1.8-7.7) Lymphocytes # (Auto) 0.8x10^3/uL (1.0-4.8) Monocytes # (Auto) 1.0x10^3/uL (0.0-1.1) Eosinophils # (Auto) 0.0x10^3/uL (0.0-0.7) Basophils # (Auto) 0.0x10^3/uL (0.0-0.2) Segmented Neutrophils % 83% (35-66) Lymphocytes % 10% (24-48) Monocytes % 6% (0-10) Basophils % 1% (0-3) Platelet Estimate Adequate (ADEQUATE) Anisocytosis Slight Sodium Level 138mmol/L (136-145) Potassium Level 4.9mmol/L (3.5-5.1) Chloride Level 104mmol/L (98-107) Carbon Dioxide Level 24mmol/L (21-32) Anion Gap 10 (6-14) Blood Urea Nitrogen 29mg/dL (7-20) Creatinine 1.1mg/dL (0.6-1.0) Estimated GFR (Cockcroft-Gault) 60.7 Glucose Level 342mg/dL (70-99) Calcium Level 9.9mg/dL (8.5-10.1) Test 09/15/16 17:07 09/15/16 21:19 Glucose (Fingerstick) 332mg/dL (70-99) 304mg/dL (70-99) Laboratory Tests Test 09/15/16 11:54 09/15/16 17:07 09/15/16 21:19 Glucose (Fingerstick) 334mg/dL (70-99) 332mg/dL (70-99) 304mg/dL (70-99) Meds Current Medications Bisacodyl (Dulcolax Supp) 10 mg PRN DAILY PRN ID CONSTIPATION; Start 09/15/16 at 17:45 Bisacodyl (Dulcolax Tab) 10 mg DAILY PO ; Start 09/16/16 at 09:00 Furosemide (Lasix) 40 mg DAILY PO Last administered on 09/15/16 12:11; Start 09/15/16 at 11:30 Insulin Aspart (Novolog) 0-7 UNITS TIDWMEALS SQ Last administered on 09/15/16 17:26; Start 09/15/16 at 08:00 Insulin Aspart (Novolog) 10 units 1X ONCE SQ Last administered on 09/15/16 08 :57; Start 09/15/16 at 08:00; Stop 09/15/16 at 08:01; Status DC Magnesium Hydroxide (Milk Of Magnesia) 2,400 mg PRN DAILY PRN PO CONSTIPATION; Start 09/15/16 at 17:45 Assessment Assessment FINAL IMPRESSION: 1. Mechanical fall at home. 2. Right wrist fracture secondary to traumatic fall. 3. History of kidney transplant. with chronic oral immunosuppression 4. Diabetes, insulin-dependent. 5. History of previous stroke. 6. Coronary artery disease, history of bypass surgery. 7. Hypertension. 8. Hyperlipidemia. 9. Brittle diabetes. 10. History of histoplasmosis of the lung, on chronic suppressive treatment. 11. L ankle ulcer POA PLAN: fall with traumatic RW fracture s/o ORIF 09/14 ortho consult ARF +VMN no TIESHA ATN with underlying CKD III Admit BUN 59 09/15 29 Cr 1.9 1.1 IVF NS 100cc/hr Lasix on hold since admit h/o renal transplant DM II w/hyperglycemia FSBS/SSI BS [phone] Levemir 20u at hs/Novolog 10u tid ac spoke with staff, only day controlled was day of surgery 09/14. Increase Levemir to 25u at hs Increase Novolog to 12unit tid ac anemia CD Admit Hgb 11.8 09/15 10.9 leukocytosis Admit 8.3 09/15 14.0 On Diflucan 200mg oral since admitted chronic steroid-Prednisone 5mg daily DVT/GI prophylaxis SCD/BRENT OOB/ambulate PPI L ankle ulcer wound care consulted Xeroform with foam dressing For further plan of care, please refer to the orders Lab pending 09/16 The patient was seen and examined by me. Chart reviewed and plan of care formulated. Discussed with, reviewed and agree with WIRER's notes, plan of care and orders with modifications as necessary. For more details regarding further plans, please refer to the orders. Plan Plan For more details regarding further plans, please refer to the orders. BLAIRE PARTIDA MD 09/16/16 1118: PROGRESS NOTES- Assessment Assessment The patient was seen and examined by me. Chart reviewed and plan of care formulated. Discussed with, reviewed and agree with WIRER's notes, plan of care and orders with modifications as necessary. Discharge Management - 35 minutes. D/w patient,,early childhood services coordinator. Transfer to SNF. The patient was seen and examined by me. Chart reviewed and plan of care formulated. Discussed with, reviewed and agree with WIRER's notes, plan of care and orders with modifications as necessary. Discharge Management - 35 minutes. DARIA GALARZA APRN Sep 16, 2016 08:02 BLAIRE PARTIDA MD Sep 16, 2016 11:18
[2016-09-16 08:08] LABS: BASO % 0 % (0-3); EOS % 1 % (0-3); HEMATOCRIT 32.8 % (36.0-47.0); HEMOGLOBIN 10.1 g/dL (12.0-15.5); LYMPH # 1.5 x10^3/uL (1.0-4.8); LYMPH % 17 % (24-48); MEAN CORPUSCULAR HEMOGLOBIN 26 pg (25-35); MEAN CORPUSCULAR HGB CONC 31 g/dL (31-37); MEAN CORPUSCULAR VOLUME 85 fL (79-100); MONO % 10 % (0-9); NEUT % 71 % (31-73); PLATELET COUNT 209 x10^3/uL (140-400); RED BLOOD COUNT 3.87 x10^6/uL (3.50-5.40); WHITE BLOOD COUNT 8.8 x10^3/uL (4.0-11.0)
[2016-09-16 08:47] LABS: CALCIUM 9.8 mg/dL (8.5-10.1); GFR 67.8; MAGNESIUM 1.8 mg/dL (1.8-2.4); POTASSIUM 4.2 mmol/L (3.5-5.1)
[2016-09-16] MEDS: LEVETIRACETAM 500 MG TABLET PO SCH (08:52)
[2016-09-16] MEDS: FOLIC/VIT B COMP W-C (RENAL) TABLET. PO SCH (08:52)
[2016-09-16] MEDS: IV NORMAL SALINE 1000ML BAG 1,000 ML IV SCH (08:52)
[2016-09-16] MEDS: TACROLIMUS 0.5 MG CAPSULE PO SCH (08:52)
[2016-09-16] MEDS: FLUCONAZOLE 100 MG TABLET. PO SCH (08:52)
[2016-09-16] MEDS: LISINOPRIL 10 MG TABLET PO SCH (08:53)
[2016-09-16] MEDS: METOCLOPRAMIDE 5 MG TABLET PO SCH ×2 (08:53→11:30)
[2016-09-16] MEDS: CARVEDILOL 12.5 MG TABLET PO SCH (08:53)
[2016-09-16] MEDS: FUROSEMIDE 40 MG TABLET PO SCH (08:53)
[2016-09-16] MEDS: PREDNISONE 5 MG TABLET PO SCH (08:53)
[2016-09-16] MEDS: MYCOPHENOLATE ACID 180 MG TABLET.DR. PO SCH (08:53)
[2016-09-16] MEDS: TACROLIMUS 1 MG CAPSULE PO SCH (08:57)
[2016-09-16] MEDS ORDERED: BISACODYL 5 MG TABLET.DR. PO SCH (09:00)
[2016-09-16 10:50] VITALS: BP 152/61
[2016-09-16] MEDS ORDERED: INSULIN ASPART 300 UNITS/3 ML INSULN.PEN SQ SCH (12:00)
[2016-09-16 15:23] VITALS: BP 157/75
--- NOTE | 2016-09-16 16:39 | PDOC ---
PROGRESS NOTES Subjective Subjective She admits some pain right wrist. Objective Objective Vital Signs Date Time Temp Pulse Resp B/P Pulse Ox O2 Delivery O2 Flow Rate FiO2 09/16/16 15:23 97.7 77 17 157/75 95 Room Air 97.7 09/14/16 09:58 10 Intake and Output 09/16/16 07:00 Intake Total 2457 ml Output Total 1200 ml Balance 1257 ml Intake Oral 550 ml IV Total 1907 ml Output Urine Total 1200 ml # Voids 3 # Bowel Movements 1 Physical Exam Physical Exam She is comfortable sitting in chair and she did walk for 175' with flat form roller walker with physical therapy. Assessment Assessment Problems Medical Problems: (1) Acute on chronic renal insufficiency Status: Acute (2) Altered mental status Status: Acute (3) Fracture of radius and ulna near wrist Status: Acute Plan Plan of Care I spoke to and nursing home social worker and her daughter felt that she could not handle her at home any longer. To arrange for transfer to SNF and later assisted living facility. Comment Review of Relevant I have reviewed the following items warner (where applicable) has been applied. Labs Laboratory Tests Test 09/14/16 16:47 09/14/16 20:43 09/15/16 06:25 09/15/16 07:14 Glucose (Fingerstick) 164mg/dL (70-99) 232mg/dL (70-99) 387mg/dL (70-99) White Blood Count 14.0x10^3/uL (4.0-11.0) Red Blood Count 4.09x10^6/uL (3.50-5.40) Hemoglobin 10.5g/dL (12.0-15.5) Hematocrit 34.8% (36.0-47.0) Mean Corpuscular Volume 85fL (79-100) Mean Corpuscular Hemoglobin 26pg (25-35) Mean Corpuscular Hemoglobin Concent 30g/dL (31-37) Red Cell Distribution Width 15.8% (11.5-14.5) Platelet Count 227x10^3/uL (140-400) Neutrophils (%) (Auto) 87% (31-73) Lymphocytes (%) (Auto) 6% (24-48) Monocytes (%) (Auto) 7% (0-9) Eosinophils (%) (Auto) 0% (0-3) Basophils (%) (Auto) 0% (0-3) Neutrophils # (Auto) 12.2x10^3uL (1.8-7.7) Lymphocytes # (Auto) 0.8x10^3/uL (1.0-4.8) Monocytes # (Auto) 1.0x10^3/uL (0.0-1.1) Eosinophils # (Auto) 0.0x10^3/uL (0.0-0.7) Basophils # (Auto) 0.0x10^3/uL (0.0-0.2) Segmented Neutrophils % 83% (35-66) Lymphocytes % 10% (24-48) Monocytes % 6% (0-10) Basophils % 1% (0-3) Platelet Estimate Adequate (ADEQUATE) Anisocytosis Slight Sodium Level 138mmol/L (136-145) Potassium Level 4.9mmol/L (3.5-5.1) Chloride Level 104mmol/L (98-107) Carbon Dioxide Level 24mmol/L (21-32) Anion Gap 10 (6-14) Blood Urea Nitrogen 29mg/dL (7-20) Creatinine 1.1mg/dL (0.6-1.0) Estimated GFR (Cockcroft-Gault) 60.7 Glucose Level 342mg/dL (70-99) Calcium Level 9.9mg/dL (8.5-10.1) Test 09/15/16 11:54 09/15/16 17:07 09/15/16 21:19 09/16/16 07:37 Glucose (Fingerstick) 334mg/dL (70-99) 332mg/dL (70-99) 304mg/dL (70-99) 163mg/dL (70-99) Test 09/16/16 07:45 09/16/16 11:46 White Blood Count 8.8x10^3/uL (4.0-11.0) Red Blood Count 3.87x10^6/uL (3.50-5.40) Hemoglobin 10.1g/dL (12.0-15.5) Hematocrit 32.8% (36.0-47.0) Mean Corpuscular Volume 85fL (79-100) Mean Corpuscular Hemoglobin 26pg (25-35) Mean Corpuscular Hemoglobin Concent 31g/dL (31-37) Red Cell Distribution Width 16.0% (11.5-14.5) Platelet Count 209x10^3/uL (140-400) Neutrophils (%) (Auto) 71% (31-73) Lymphocytes (%) (Auto) 17% (24-48) Monocytes (%) (Auto) 10% (0-9) Eosinophils (%) (Auto) 1% (0-3) Basophils (%) (Auto) 0% (0-3) Neutrophils # (Auto) 6.3x10^3uL (1.8-7.7) Lymphocytes # (Auto) 1.5x10^3/uL (1.0-4.8) Monocytes # (Auto) 0.9x10^3/uL (0.0-1.1) Eosinophils # (Auto) 0.1x10^3/uL (0.0-0.7) Basophils # (Auto) 0.0x10^3/uL (0.0-0.2) Sodium Level 143mmol/L (136-145) Potassium Level 4.2mmol/L (3.5-5.1) Chloride Level 108mmol/L (98-107) Carbon Dioxide Level 26mmol/L (21-32) Anion Gap 9 (6-14) Blood Urea Nitrogen 21mg/dL (7-20) Creatinine 1.0mg/dL (0.6-1.0) Estimated GFR (Cockcroft-Gault) 67.8 Glucose Level 153mg/dL (70-99) Calcium Level 9.8mg/dL (8.5-10.1) Magnesium Level 1.8mg/dL (1.8-2.4) Glucose (Fingerstick) 189mg/dL (70-99) Laboratory Tests Test 09/15/16 17:07 09/15/16 21:19 09/16/16 07:37 09/16/16 07:45 Glucose (Fingerstick) 332mg/dL (70-99) 304mg/dL (70-99) 163mg/dL (70-99) White Blood Count 8.8x10^3/uL (4.0-11.0) Red Blood Count 3.87x10^6/uL (3.50-5.40) Hemoglobin 10.1g/dL (12.0-15.5) Hematocrit 32.8% (36.0-47.0) Mean Corpuscular Volume 85fL (79-100) Mean Corpuscular Hemoglobin 26pg (25-35) Mean Corpuscular Hemoglobin Concent 31g/dL (31-37) Red Cell Distribution Width 16.0% (11.5-14.5) Platelet Count 209x10^3/uL (140-400) Neutrophils (%) (Auto) 71% (31-73) Lymphocytes (%) (Auto) 17% (24-48) Monocytes (%) (Auto) 10% (0-9) Eosinophils (%) (Auto) 1% (0-3) Basophils (%) (Auto) 0% (0-3) Neutrophils # (Auto) 6.3x10^3uL (1.8-7.7) Lymphocytes # (Auto) 1.5x10^3/uL (1.0-4.8) Monocytes # (Auto) 0.9x10^3/uL (0.0-1.1) Eosinophils # (Auto) 0.1x10^3/uL (0.0-0.7) Basophils # (Auto) 0.0x10^3/uL (0.0-0.2) Sodium Level 143mmol/L (136-145) Potassium Level 4.2mmol/L (3.5-5.1) Chloride Level 108mmol/L (98-107) Carbon Dioxide Level 26mmol/L (21-32) Anion Gap 9 (6-14) Blood Urea Nitrogen 21mg/dL (7-20) Creatinine 1.0mg/dL (0.6-1.0) Estimated GFR (Cockcroft-Gault) 67.8 Glucose Level 153mg/dL (70-99) Calcium Level 9.8mg/dL (8.5-10.1) Magnesium Level 1.8mg/dL (1.8-2.4) Test 09/16/16 11:46 Glucose (Fingerstick) 189mg/dL (70-99) Medications Current Medications Fentanyl Citrate (Fentanyl 2ml Vial) 25 mcg PRN Q15MIN PRN IV PAIN GREATER THAN 3/10 Last administered on 09/13/16t 10:17; Start 09/13/16 at 10:15; Stop at 10:14; Status DC Fentanyl Citrate (Fentanyl 2ml Vial) 50 mcg PRN Q2HR PRN IV PAIN; Start at 10:45; Stop 09/14/16 at 10:44; Status DC Morphine Sulfate 1 mg 1 mg PRN Q10MIN PRN IV SEVERE PAIN; Start 09/14/16 at 07: 00; Stop 09/15/16 at 06:59; Status DC Lactated Ringer's (Iv Lactated Ringers) 1,000 ml @ 30 mls/hr Q24H IV ; Start at 07:00; Stop 09/14/16 at 18:59; Status DC Lidocaine HCl 2 ml 1X PRN PRN ID IV START; Start 09/14/16 at 07:00; Stop at 06:59; Status DC Hydromorphone HCl (Dilaudid) 0.5 mg PRN Q10MIN PRN IV SEVERE PAIN, Second choice; Start 09/14/16 at 07:00; Stop 09/15/16 at 06:59; Status DC Insulin Aspart 10 units 10 units 1X ONCE SQ Last administered on 09/13/16 17: 58; Start 09/13/16 at 17:30; Stop 09/13/16 at 17:31; Status DC Sodium Chloride (Iv Sodium Chloride 0.9% 1000ml Bag) 1,000 ml @ 100 mls/hr Q10H IV Last administered on 09/16/16 08:52; Start 09/13/16 at 19:30 Alprazolam (Xanax) 0.25 mg PRN BID PRN PO ANXIETY / AGITATION; Start 09/13/16 at 19:30 Atorvastatin Calcium (Lipitor) 40 mg QHS PO Last administered on 09/15/16 20: 54; Start 09/13/16 at 21:00 Carvedilol (Coreg) 12.5 mg BIDWMEALS PO Last administered on 09/16/16 08:53; Start 09/14/16 at 08:00 Fluconazole (Diflucan) 200 mg DAILY PO ; Start 09/14/16 at 09:00; Status UNV Folic Acid/ Multivitamins/Vit B12 (Nephro-Stacey) 1 tab DAILY PO Last administered on 09/16/16 08:52; Start 09/14/16 at 09:00 Acetaminophen/ Hydrocodone Bitart (Lortab 7.5/325) 1 tab PRN Q4HRS PRN PO PAIN MILD TO MOD Last administered on 09/15/16 20:55; Start 09/13/16 at 19:30 Levetiracetam (Keppra) 500 mg BID PO Last administered on 09/16/16 08:52; Start 09/13/16 at 21:00 Lisinopril (Prinivil) 10 mg DAILY PO Last administered on 09/16/16 08:53; Start 09/14/16 at 09:00 Metoclopramide HCl (Reglan) 5 mg TIDAC PO Last administered on 09/16/16 11:30 ; Start 09/14/16 at 07:30 Mycophenolate Sodium (Myfortic) 180 mg BID PO Last administered on 09/16/16 08 :53; Start 09/13/16 at 21:00 Pantoprazole Sodium (Protonix) 40 mg DAILY07 PO Last administered on 09/16/16 05:52; Start 09/14/16 at 07:00 Prednisone (Prednisone) 5 mg DAILY PO Last administered on 09/16/16 08:53; Start 09/14/16 at 09:00 Tacrolimus (Prograf) 0.5 mg QHS PO Last administered on 09/16/16 08:52; Start 09/13/16 at 21:00 Tacrolimus (Prograf) 1 mg DAILY PO Last administered on 09/16/16 08:57; Start 09/14/16 at 09:00 Insulin Aspart (Novolog) 10 units TIDWMEALS SQ Last administered on 09/15/16 17:26; Start 09/14/16 at 07:30; Stop 09/16/16 at 08:04; Status DC Insulin Detemir (Levemir) 20 units QHS SQ Last administered on 09/15/16 21:51 ; Start 09/13/16 at 21:00; Stop 09/16/16 at 08:04; Status DC Insulin Aspart (Novolog) 0-7 UNITS TIDWMEALS SQ Last administered on 09/14/16 18:01; Start 09/14/16 at 08:00; Stop 09/15/16 at 07:56; Status DC Dextrose 12.5 gm PRN Q15MIN PRN IV SEE COMMENTS; Start 09/13/16 at 19:45 Fluconazole (Diflucan) 200 mg DAILY PO Last administered on 09/16/16t 08:52; Start 09/14/16 at 09:00 Insulin Aspart (Novolog) 2 units 1X ONCE SQ ; Start 09/14/16 at 08:00; Stop at 08:01; Status Cancel Fentanyl Citrate (Fentanyl 2ml Vial) 100 mcg STK-MED ONCE .ROUTE ; Start at 07:52; Stop 09/14/16 at 07:53; Status DC Sevoflurane 60 ml 60 ml STK-MED ONCE IH ; Start 09/14/16 at 07:53; Stop at 07:54; Status DC Propofol (Diprivan) 20 ml @ As Directed STK-MED ONCE IV ; Start 09/14/16 at 07: 53; Stop 09/14/16 at 07:54; Status DC Dexamethasone Sodium Phosphate (Decadron) 20 mg STK-MED ONCE .ROUTE ; Start at 07:53; Stop 09/14/16 at 07:54; Status DC Ondansetron HCl (Zofran) 4 mg STK-MED ONCE .ROUTE ; Start 09/14/16 at 07:53; Stop 09/14/16 at 07:54; Status DC Lidocaine HCl 100 mg STK-MED ONCE .ROUTE ; Start 09/14/16 at 07:53; Stop at 07:54; Status DC Insulin Aspart 2 unit 2 unit 1X ONCE SQ Last administered on 09/14/16t 08:11; Start 09/14/16 at 08:15; Stop 09/14/16 at 08:16; Status DC Cefazolin Sodium (Ancef 1gm Ivpb For Omni) 50 ml @ As Directed STK-MED ONCE IV ; Start 09/14/16 at 08:14; Stop 09/14/16 at 08:15; Status DC Ephedrine Sulfate 50 mg STK-MED ONCE IV ; Start 09/14/16 at 08:32; Stop at 08:33; Status DC Bupivacaine HCl (Marcaine 0.25%) 50 ml STK-MED ONCE .ROUTE Last administered on 09/14/16 09:25; Start 09/14/16 at 09:16; Stop 09/14/16 at 09:17; Status DC Insulin Aspart (Novolog) 10 units 1X ONCE SQ Last administered on 09/15/16 08 :57; Start 09/15/16 at 08:00; Stop 09/15/16 at 08:01; Status DC Insulin Aspart (Novolog) 0-7 UNITS TIDWMEALS SQ Last administered on 09/16/16 12:26; Start 09/15/16 at 08:00 Furosemide (Lasix) 40 mg DAILY PO Last administered on 09/16/16 08:53; Start 09/15/16 at 11:30 Bisacodyl (Dulcolax Supp) 10 mg PRN DAILY PRN SD CONSTIPATION; Start 09/15/16 at 17:45 Bisacodyl (Dulcolax Tab) 10 mg DAILY PO Last administered on 09/16/16 08:52; Start 09/16/16 at 09:00 Magnesium Hydroxide (Milk Of Magnesia) 2,400 mg PRN DAILY PRN PO CONSTIPATION; Start 09/15/16 at 17:45 Insulin Aspart (Novolog) 12 units TIDWMEALS SQ Last administered on 09/16/16 12:28; Start 09/16/16 at 12:00 Insulin Detemir (Levemir) 25 units QHS SQ ; Start 09/16/16 at 21:00 Active Scripts Active Diflucan (Fluconazole) 100 Mg Tablet 200 Mg PO DAILY Reported Lortab 7.5-325 mg Tablet (Hydrocodone/Acetaminophen) 1 Each Tablet 1 Tab PO PRN Q4HRS PRN Lasix (Furosemide) 40 Mg Tablet 1 Tab PO DAILY Prograf (Tacrolimus) 1 Mg Capsule 0.5 Mg PO HS Prograf (Tacrolimus) 1 Mg Capsule 1 Mg PO DAILY Levemir (Insulin Detemir) 100 Unit/1 Ml Vial 40 Unit SQ QHS Lisinopril 10 Mg Tablet 1 Tab PO DAILY Xanax (Alprazolam) 0.25 Mg Tablet 0.25 Mg PO PRN BID PRN Nephro-Stacey Tablet (Folic Acid/Vitamin B Comp W-C) 0.8 Mg Tablet 1 Tab PO DAILY Myfortic (Mycophenolate Sodium) 180 Mg Tablet.dr 180 Mg PO BID [meds reviewed] Coreg (Carvedilol) 6.25 Mg Tablet 12.5 Mg PO BIDWMEALS Atorvastatin Calcium 40 Mg Tablet 2 Tab PO QHS Prednisone 5 Mg Tablet 5 Mg PO DAILY Metoclopramide Hcl 5 Mg Tablet 5 Mg PO TIDAC Levetiracetam 500 Mg Tablet 500 Mg PO BID Novolog (Insulin Aspart) 100 Unit/1 Ml Cartridge 15 Unit SQ TIDWMEALS Aspirin 325 Mg Tablet 325 Mg PO DAILY Protonix (Pantoprazole Sodium) 40 Mg Tablet.dr 40 Mg PO DAILY Vitals/I & O Vital Sign - Last 24 Hours 09/15/16 09/15/16 09/15/16 09/15/16 20:00 20:00 20:55 23:00 Temp 97.7 98.7 97.7 98.7 Pulse 81 81 Resp B/P 132/64 120/57 Pulse Ox 100 100 O2 Delivery Room Air Room Air Room Air Room Air 09/16/16 09/16/16 09/16/16 09/16/16 03:00 07:00 08:00 08:53 Temp 98.1 97.4 98.1 97.4 Pulse 83 80 80 Resp B/P 120/61 164/67 164/67 Pulse Ox 100 100 O2 Delivery Room Air Room Air Room Air 09/16/16 09/16/16 09/16/16 08:53 10:50 15:23 Temp 98.1 97.7 98.1 97.7 Pulse 80 80 77 Resp B/P 164/67 152/61 157/75 Pulse Ox 98 95 O2 Delivery Room Air Room Air Intake and Output 09/15/16 09/15/16 09/16/16 15:00 23:00 07:00 Intake Total 1357 ml 1100 ml Output Total 1200 ml Balance 157 ml 1100 ml RADHA HUITRON MD Sep 16, 2016 16:39
[2016-09-16] MEDS ORDERED: INSULIN DETEMIR 300 UNITS/3 ML INSULN.PEN. SQ SCH (21:00)
== END 2016-09-16 17:00 | DRG 510 ==
LOC: ER 07:59 → ED HOLD 12:05 → 6 SOUTH 12:36
PROVIDERS: ADMIT Internal Medicine; ATTEND Internal Medicine
PROC: 0PSH04Z Reposition Right Radius with Internal Fixation Device, Open Approach (ICD-10-PCS; principal; 2016-09-14 08:00)
DX: S52.571A Other intraarticular fracture of lower end of right radius, initial encounter for closed fracture (principal); N17.0 Acute kidney failure with tubular necrosis; Z94.0 Kidney transplant status; I13.0 Hypertensive heart and chronic kidney disease with heart failure and stage 1 through stage 4 chronic kidney disease, or unspecified chronic kidney disease; L97.329 Non-pressure chronic ulcer of left ankle with unspecified severity; W10.9XXA Fall (on) (from) unspecified stairs and steps, initial encounter; E11.22 Type 2 diabetes mellitus with diabetic chronic kidney disease; E11.42 Type 2 diabetes mellitus with diabetic polyneuropathy; E11.622 Type 2 diabetes mellitus with other skin ulcer; E78.00 Pure hypercholesterolemia, unspecified; E78.5 Hyperlipidemia, unspecified; I25.10 Atherosclerotic heart disease of native coronary artery without angina pectoris; I25.2 Old myocardial infarction; I50.9 Heart failure, unspecified; N18.9 Chronic kidney disease, unspecified; R29.6 Repeated falls; Y92.009 Unspecified place in unspecified non-institutional (private) residence as the place of occurrence of the external cause; Z79.4 Long term (current) use of insulin; Z82.49 Family history of ischemic heart disease and other diseases of the circulatory system; Z83.3 Family history of diabetes mellitus; Z86.73 Personal history of transient ischemic attack (TIA), and cerebral infarction without residual deficits; Z87.891 Personal history of nicotine dependence; Z95.1 Presence of aortocoronary bypass graft
CPT/HCPCS: 29125; 36415; 70450; 71010; 72125; 73030; 73080; 73110; 76000; 80048; 80053; 80061; 81001; 82553; 82947; 83036; 83735; 83880; 84443; 84484; 85007; 85027; 85610; 93005; 96374; C1713; J0690; J1100; J1815; J2405; J2704; J3010; J3490; J7030; J7507; J7512; J8597; 97110; 97116; 97530; 97535; 99285-25

== ENCOUNTER → 2017-12-12 | Day surgery (SDC) | payer OTHER ==
[~2017-12-12] MED LIST changes: -ACET500T68 PO; -ALPR0.25 PO; -AMLO5TAB2 PO; -AMLO5TAB4 PO; -ASPI-482 PO; -ASPI325T4 PO; -ATOR40TA PO; -ATOR40TA59 PO; -ATORVASTATIN CA80 MG PO; -CARV12.5 PO; -CARV12.52 PO; -CARV6.25 PO; -CEFP100T PO; -CEPH-264 PO; -CIPR500T94 PO; -DOCU100T11 PO; -FLUC100T7 PO; -FOLI0.8T3 PO; -FURO-68 PO; -FURO40TA4 PO; -HYDR-2666 PO; -HYDR-971 PO; -HYDR10TA2 PO; -INSU100C4 SQ; -INSU100I13 SQ; -INSU100I17 SQ; -INSU100V13 SQ; -INSU100V8 SQ; +IV NORMAL SALINE 1000ML BAG 1,000 ML IV; -LEVE100S18 PO; -LEVE500T56 PO; -LEVE500T6 PO; +LIDOCAINE 1% PF 2 ML VIAL. ID; -LISI-334 PO; -LISI10TA2 PO; -Lasix PO; -METO10TA81 PO; -METO5TAB PO; -METO5TAB55 PO; +MORPHINE SULFATE 4 MG/ML DISP.SYRIN. IV; -MYCO180T PO; -MYCO360T PO; -ONDA4SOL PO; +ONDANSETRON PF 4 MG/2 ML VIAL. IV; -PANT40GR PO; -PANT40TA3 PO; -PHOS250T3 PO; -POTA10TA12 PO; -PRED5TAB PO; +PROCHLORPERAZINE 10 MG/2 ML VIAL. IV; +PROPOFOL 20 ML IV; -SODI453. PO; -TACR0.5C4 PO; -TACR0.5P MC; -TACR1CAP2 PO; -TACR1CAP4 PO; -VANC125C2 PO; -[UNRECOGNIZED DRUG - OTHER]; -[UNRECOGNIZED DRUG - OTHER] PO; +fentaNYL PF VIAL 100 MCG/2 ML VIAL IV
[2017-12-12] MEDS: IV RINGERS,LACTATED 1000ML 1,000 ML IV (07:00)
[2017-12-12 08:10] LABS: POC GLUCOSE 83 mg/dL (70-99)
== END | disposition home or self-care (01) ==
LOC: ENDOS 07:20
DX: Z09 Encounter for follow-up examination after completed treatment for conditions other than malignant neoplasm (principal); Z86.010 Personal history of colon polyps; I13.0 Hypertensive heart and chronic kidney disease with heart failure and stage 1 through stage 4 chronic kidney disease, or unspecified chronic kidney disease; E11.22 Type 2 diabetes mellitus with diabetic chronic kidney disease; N18.9 Chronic kidney disease, unspecified; I50.9 Heart failure, unspecified; Z94.0 Kidney transplant status; E11.42 Type 2 diabetes mellitus with diabetic polyneuropathy; E11.39 Type 2 diabetes mellitus with other diabetic ophthalmic complication; Z86.73 Personal history of transient ischemic attack (TIA), and cerebral infarction without residual deficits; I25.10 Atherosclerotic heart disease of native coronary artery without angina pectoris; E78.5 Hyperlipidemia, unspecified; F32.9 Major depressive disorder, single episode, unspecified; K21.9 Gastro-esophageal reflux disease without esophagitis; I25.2 Old myocardial infarction; M19.90 Unspecified osteoarthritis, unspecified site; Z87.11 Personal history of peptic ulcer disease; Z98.890 Other specified postprocedural states; Z79.82 Long term (current) use of aspirin; Z79.899 Other long term (current) drug therapy; Z79.84 Long term (current) use of oral hypoglycemic drugs
CPT/HCPCS: 45378; 82962; J2704

== ENCOUNTER → 2018-01-09 | Day surgery (SDC) | payer OTHER ==
[~2018-01-09] MED LIST changes: -IV NORMAL SALINE 1000ML BAG 1,000 ML IV; +IV RINGERS,LACTATED 1000ML 1,000 ML IV; +LIDOCAINE 2% PF Vial for OR 5 ML VIAL.; -ONDANSETRON PF 4 MG/2 ML VIAL. IV; -PROCHLORPERAZINE 10 MG/2 ML VIAL. IV; -PROPOFOL 20 ML IV; +PROPOFOL 40 ML IV; -fentaNYL PF VIAL 100 MCG/2 ML VIAL IV
[2018-01-09] MEDS: IV NORMAL SALINE 1000ML BAG 1,000 ML IV (09:04)
== END | disposition home or self-care (01) ==
LOC: ENDOS 08:11
DX: Z09 Encounter for follow-up examination after completed treatment for conditions other than malignant neoplasm (principal); Z86.010 Personal history of colon polyps; I13.2 Hypertensive heart and chronic kidney disease with heart failure and with stage 5 chronic kidney disease, or end stage renal disease; E11.22 Type 2 diabetes mellitus with diabetic chronic kidney disease; N18.6 End stage renal disease; I50.9 Heart failure, unspecified; Z99.2 Dependence on renal dialysis; I25.810 Atherosclerosis of coronary artery bypass graft(s) without angina pectoris; Z94.0 Kidney transplant status; E78.00 Pure hypercholesterolemia, unspecified; Z86.73 Personal history of transient ischemic attack (TIA), and cerebral infarction without residual deficits; E11.42 Type 2 diabetes mellitus with diabetic polyneuropathy; E11.39 Type 2 diabetes mellitus with other diabetic ophthalmic complication; E11.36 Type 2 diabetes mellitus with diabetic cataract; F32.9 Major depressive disorder, single episode, unspecified; K21.9 Gastro-esophageal reflux disease without esophagitis; I25.2 Old myocardial infarction; M19.90 Unspecified osteoarthritis, unspecified site; Z87.11 Personal history of peptic ulcer disease; Z90.710 Acquired absence of both cervix and uterus; E11.51 Type 2 diabetes mellitus with diabetic peripheral angiopathy without gangrene; Z95.1 Presence of aortocoronary bypass graft; Z98.49 Cataract extraction status, unspecified eye; Z98.890 Other specified postprocedural states; Z79.82 Long term (current) use of aspirin; Z79.899 Other long term (current) drug therapy; Z79.4 Long term (current) use of insulin; Z90.49 Acquired absence of other specified parts of digestive tract; Z87.440 Personal history of urinary (tract) infections; F41.9 Anxiety disorder, unspecified; Z86.14 Personal history of Methicillin resistant Staphylococcus aureus infection; Z83.3 Family history of diabetes mellitus; Z82.0 Family history of epilepsy and other diseases of the nervous system; Z88.8 Allergy status to other drugs, medicaments and biological substances
CPT/HCPCS: 45378; J2704

== ENCOUNTER 2018-07-23 05:57 | Emergency (ER) | payer OTHER ==
[~2018-07-23] VITALS: Ht 160 cm; Wt 72.6 kg
[~2018-07-23 05:57] MED LIST changes: +ACET500T68 PO; +ALPR0.25 PO; +AMLO5TAB4 PO; +AMLO5TAB7 PO; +ASPI-482 PO; +ASPI325T8 PO; +ATOR40TA PO; +ATOR40TA59 PO; +ATORVASTATIN CA80 MG PO; +BISA-42 PO; +CARV12.5 PO; +CARV12.511 PO; +CARV6.25 PO; +CEFP100T PO; +CEPH-264 PO; +CIPR500T94 PO; +DOCU-150 PO; +DOCU100T11 PO; +FERR325T14 PO; +FLUC100T7 PO; +FLUC200T PO; +FOLI0.8T3 PO; +FURO-68 PO; +FURO40TA4 PO; +GUAI100L12 PO; +HYDR-2679 PO; +HYDR-2761 PO; +HYDR-2869 PO; +HYDR-3164 PO; +HYDR10TA2 PO; +INSU100C4 SQ; +INSU100I13 SQ; +INSU100I17 SQ; +INSU100V13 SQ; +INSU100V8 SQ; -IV RINGERS,LACTATED 1000ML 1,000 ML IV; +LEVE100S18 PO; +LEVE500T56 PO; +LEVE500T6 PO; -LIDOCAINE 1% PF 2 ML VIAL. ID; -LIDOCAINE 2% PF Vial for OR 5 ML VIAL.; +LISI-334 PO; +LISI10TA2 PO; +Lasix PO; +METO10TA81 PO; +METO5TAB PO; +METO5TAB55 PO; -MORPHINE SULFATE 4 MG/ML DISP.SYRIN. IV; +MYCO180T PO; +MYCO360T PO; +ONDA4SOL PO; +PANT40GR PO; +PANT40TA3 PO; +PHOS250T3 PO; +POTA10TA12 PO; +PRED5TAB PO; -PROPOFOL 40 ML IV; +SODI453. PO; +TACR0.5C20 PO; +TACR0.5P MC; +TACR1CAP2 PO; +TACR1CAP4 PO; +VALS80TA3 PO; +VANC125C2 PO; +[UNRECOGNIZED DRUG - OTHER]; +[UNRECOGNIZED DRUG - OTHER] PO
--- NOTE | 2018-07-23 06:28 | PHYS DOC ---
Past Medical History Past Medical History: CAD, CHF, Diabetes-Type II, High Cholesterol, Hypertension, Renal Failure, Other Additional Past Medical Histor: MRSA Past Surgical History: Coronary Bypass Surgery, Hysterectomy, Other Additional Past Surgical Histo: kidney transplant,foot surgery,AV fistula placement Alcohol Use: None Drug Use: None Adult General Chief Complaint Chief Complaint: MECHANICAL FALL HPI HPI Patient is a 63-year-old female who arrives via EMS from a [facility]. She states that she had gotten out of bed this morning and was turning around, and lost her footing and fell to the ground striking the back of her head on the ground. She did not have a loss of consciousness. Other than pain in her head, she denies any other complaints or injuries. She denies any neck or back pain or extremity pain or injury. She denies any dizziness or lightheadedness prior to her fall. She has not had any nausea or vomiting. She denies any numbness or weakness or mental status changes. There are no alleviating or exacerbating factors to her symptoms otherwise. Review of Systems Review of Systems Constitutional: Denies fever or chills [] Eyes: Denies change in visual acuity, redness, or eye pain [] HENT: Denies nasal congestion or sore throat [] Respiratory: Denies cough or shortness of breath [] Cardiovascular: The patient denies any shortness of breath, chest pain, palpitations, or orthopnea [] GI: Denies abdominal pain, nausea, vomiting, bloody stools or diarrhea [] : Denies dysuria or hematuria [] Musculoskeletal: Denies neck or back pain or joint pain [] Integument: Denies rash or skin lesions [] Neurologic: Denies , focal weakness or sensory changes [] Endocrine: Denies polyuria or polydipsia [] All other systems were reviewed and found to be within normal limits, except as documented in this note. Allergies Allergies Allergies Coded Allergies Type Severity Reaction Last Updated Verified I S O L A T I O N *CONTACT* Allergy Unknown 01/09/18 Yes No Known Medication Allergies Allergy Unknown 01/09/18 Yes Physical Exam Physical Exam PHYSICAL EXAM: CONSTITUTIONAL: Well developed, well nourished HEAD: normocephalic, atraumatic EENT: PERRL, EOMI. Conjunctivae normal color, sclerae non-icteric; moist mucous membranes. NECK: Supple, non-tender; no meningismus.There is full, painless range of motion of the cervical spine, without any focal bony midline tenderness to palpation. LUNGS: Lungs CTA, breathing even and unlabored. Normal air movement. HEART: Regular rate and rhythm, no murmur CHEST: No deformity; non-tender ABDOMEN: The abdomen is soft, and non-tender, no masses or bruits. EXTREM: Normal ROM; no deformity, no calf tenderness. Normal pulses palpable in all extremities. There is no pedal edema. The extremities are atraumatic. Hips and pelvis are nontender with normal range of motion. SKIN: No rash; no diaphoresis NEURO: Alert; normal speech and cognition; CN's grossly intact; strength grossly intact without focal deficit. BACK: No CVA TTP.There is no bony tenderness to palpation of the thoracic or lumbar spine. 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 (See chart for details) [8:30 AM: Patient remains stable. I discussed test results, the need for close follow-up, and return precautions.] Dragon Disclaimer Dragon Disclaimer This electronic medical record was generated, in whole or in part, using a voice recognition dictation system. Departure Departure Impression: Primary Impression: Closed head injury Disposition: 01 HOME, SELF-CARE Condition: STABLE Referrals: AUGUSTO BRUNER MD (PCP) Patient Instructions: Head Injury, Adult CIELO HANEY MD Jul 23, 2018 06:28
--- NOTE | 2018-07-23 08:46 | RAD ---
CT of the head without contrast, 07/23/2018: History: Fall Comparison is made to a study from 12/22/2017. There is an unchanged moderate- sized lucency in the right parieto-occipital region compatible with encephalomalacia due to an old infarct. A small old lacunar infarct is present in the right thalamus. There are mild unchanged deep white matter lucencies compatible with ischemic change. The ventricles are unchanged in size. There is no shift of the midline structures. There is no evidence of acute intracranial hemorrhage or mass effect. There is moderate calcific plaquing involving the distal internal carotid and vertebral arteries. IMPRESSION: 1. Old cerebral infarcts as described above. 2. No acute intracranial abnormality is detected. PQRS Compliance Statement: One or more of the following individualized dose reduction techniques were utilized for this examination: 1. Automated exposure control 2. Adjustment of the mA and/or kV according to patient size 3. Use of iterative reconstruction technique MTDD
[2018-07-23 10:38] VITALS: BP 193/79
== END 2018-07-23 11:55 | disposition home or self-care (01) ==
LOC: ER 05:57
DX: S09.90XA Unspecified injury of head, initial encounter (principal); E78.00 Pure hypercholesterolemia, unspecified; I50.9 Heart failure, unspecified; I11.0 Hypertensive heart disease with heart failure; I25.10 Atherosclerotic heart disease of native coronary artery without angina pectoris; Z90.710 Acquired absence of both cervix and uterus; Z95.1 Presence of aortocoronary bypass graft; Z91.041 Radiographic dye allergy status; W18.09XA Striking against other object with subsequent fall, initial encounter; Y93.89 Activity, other specified; Y92.89 Other specified places as the place of occurrence of the external cause; Y99.8 Other external cause status
CPT/HCPCS: 70450; 99284-25

== ENCOUNTER 2018-10-22 09:39 | Emergency (ER) | payer MEDICARE, OTHER ==
[~2018-10-22] VITALS: Ht 161.3 cm; Wt 78.0 kg
[~2018-10-22 09:39] MED LIST changes: +AMLO5TAB10 PO; -AMLO5TAB7 PO; -VANC125C2 PO; +VANC125C3 PO
--- NOTE | 2018-10-22 10:27 | RAD ---
EXAM: Pelvis and right hip, 3 views. HISTORY: Fall. Pain. COMPARISON: None. FINDINGS: A frontal view of the pelvis and frontal and frog-leg views the right hip are obtained. There is no fracture, dislocation or subluxation. There is a partial sacralization of the L5 vertebral segment. There are surgical clips within the right adnexa. There are vascular calcifications. IMPRESSION: No acute osseous finding. Electronically signed by: Litzy Jennings MD (10/22/2018 10:23 AM) [place] [id number]
--- NOTE | 2018-10-22 10:30 | PHYS DOC ---
Past Medical History Past Medical History: CAD, CHF, Diabetes-Type II, High Cholesterol, Hypertension, Renal Failure, Other Additional Past Medical Histor: MRSA Past Surgical History: Coronary Bypass Surgery, Hysterectomy, Other Additional Past Surgical Histo: kidney transplant,foot surgery,AV fistula placement Additional Information: quit smoking 1980 Alcohol Use: None Drug Use: None Adult General Chief Complaint Chief Complaint: MECHANICAL FALL HPI HPI Patient is a 63 year old female was brought here from [facility] for evaluation of right-sided hip pain, confusion, back pain. Patient fell on her right side yesterday, hit her head on the ground, C/O right hip pain. Patient however had been walking without a problem. She IS not on blood thinner. She denies any headache or neck pain. Review of Systems Review of Systems Constitutional: Denies fever or chills [] Eyes: Denies change in visual acuity, redness, or eye pain [] HENT: Denies nasal congestion or sore throat [] Respiratory: Denies cough or shortness of breath [] Cardiovascular: No additional information not addressed in HPI [] GI: Denies abdominal pain, nausea, vomiting, bloody stools or diarrhea [] : Denies dysuria or hematuria [] Musculoskeletal: POSITIVE FOR LOWER BACK PAIN AND RIGHT SIDE HIP PAIN. Integument: Denies rash or skin lesions [] Neurologic: Denies headache, focal weakness or sensory changes [] Endocrine: Denies polyuria or polydipsia [] All other systems were reviewed and found to be within normal limits, except as documented in this note. Current Medications Current Medications Current Medications Medications (Trade) Dose Ordered Sig/Te Start Time Stop Time Status Last Admin Dose Admin Clonidine HCl (Catapres) 0.1 mg 1X ONCE 10/22/18 12:30 10/22/18 12:31 DC 10/22/18 13:01 0.1 MG Sodium Chloride 500 ml @ 500 mls/hr 1X ONCE 10/22/18 16:30 10/22/18 17:29 DC Allergies Allergies Allergies Coded Allergies Type Severity Reaction Last Updated Verified I S O L A T I O N *CONTACT* Allergy Unknown 01/09/18 Yes No Known Medication Allergies Allergy Unknown 01/09/18 Yes Physical Exam Physical Exam Constitutional: Well developed, well nourished, no acute distress, non-toxic appearance. [] HENT: Normocephalic, atraumatic, bilateral external ears normal, oropharynx moist, no oral exudates, nose normal. [] Eyes: PERRLA, EOMI, conjunctiva normal, no discharge. [] Neck: Normal range of motion, no tenderness, supple, no stridor. [] Cardiovascular:Heart rate regular rhythm, no murmur [] Lungs & Thorax: Bilateral breath sounds clear to auscultation [] Abdomen: Bowel sounds normal, soft, no tenderness, no masses, no pulsatile masses. [] Skin: Warm, dry, no erythema, no rash. [] Back: No tenderness, no CVA tenderness. [] Extremities: No tenderness, no cyanosis, no clubbing, ROM intact, no edema. [] Neurologic: Alert and oriented X 3, normal motor function, normal sensory function, no focal deficits noted. [] Psychologic: Affect normal, judgement normal, mood normal. [] Current Patient Data Vital Signs Vital Signs Date Time Temp Pulse Resp B/P (MAP) Pulse Ox O2 Delivery O2 Flow Rate FiO2 10/22/18 13:45 72 100 10/22/18 13:32 18 10/22/18 13:01 211/86 10/22/18 09:39 97.6 Room Air 97.6 Lab Values Laboratory Tests Test 10/22/18 12:50 10/22/18 14:02 10/22/18 14:10 10/22/18 15:50 Urine Collection Type Void Urine Color Yellow Urine Clarity Clear Urine pH 5.5 Urine Specific Andrews 1.020 Urine Protein 100 mg/dL (NEG-TRACE) Urine Glucose (UA) 100 mg/dL (NEG) Urine Ketones (Stick) Negative mg/dL (NEG) Urine Blood Negative (NEG) Urine Nitrite Negative (NEG) Urine Bilirubin Negative (NEG) Urine Urobilinogen Dipstick 0.2 mg/dL (0.2 mg/dL) Urine Leukocyte Esterase Small (NEG) Urine RBC Rare /HPF (0-2) Urine WBC 1-4 /HPF (0-4) Urine Squamous Epithelial Cells Many /LPF Urine Bacteria Few /HPF (0-FEW) Urine Mucus Slight /LPF White Blood Count 8.4 x10^3/uL (4.0-11.0) Red Blood Count 4.40 x10^6/uL (3.50-5.40) Hemoglobin 11.3 g/dL (12.0-15.5) L Hematocrit 36.5 % (36.0-47.0) Mean Corpuscular Volume 83 fL (79-100) Mean Corpuscular Hemoglobin 26 pg (25-35) Mean Corpuscular Hemoglobin Concent 31 g/dL (31-37) Red Cell Distribution Width 16.8 % (11.5-14.5) H Platelet Count 215 x10^3/uL (140-400) Neutrophils (%) (Auto) 81 % (31-73) H Lymphocytes (%) (Auto) 12 % (24-48) L Monocytes (%) (Auto) 6 % (0-9) Eosinophils (%) (Auto) 1 % (0-3) Basophils (%) (Auto) 0 % (0-3) Neutrophils # (Auto) 6.8 x10^3uL (1.8-7.7) Lymphocytes # (Auto) 1.0 x10^3/uL (1.0-4.8) Monocytes # (Auto) 0.5 x10^3/uL (0.0-1.1) Eosinophils # (Auto) 0.1 x10^3/uL (0.0-0.7) Basophils # (Auto) 0.0 x10^3/uL (0.0-0.2) Troponin I Quantitative < 0.017 ng/mL (0.000-0.055) Prothrombin Time 12.9 SEC (11.7-14.0) Prothrombin Time INR 1.0 (0.8-1.1) PTT 32 SEC (24-38) Sodium Level 142 mmol/L (136-145) 139 mmol/L (136-145) Potassium Level 6.1 mmol/L (3.5-5.1) *H 5.0 mmol/L (3.5-5.1) Chloride Level 105 mmol/L (98-107) 104 mmol/L (98-107) Carbon Dioxide Level 28 mmol/L (21-32) 26 mmol/L (21-32) Anion Gap 9 (6-14) 9 (6-14) Blood Urea Nitrogen 32 mg/dL (7-20) H 32 mg/dL (7-20) H Creatinine 1.4 mg/dL (0.6-1.0) H 1.3 mg/dL (0.6-1.0) H Estimated GFR (Cockcroft-Gault) 45.7 49.7 BUN/Creatinine Ratio 23 (6-20) H 25 (6-20) H Glucose Level 328 mg/dL (70-99) H 362 mg/dL (70-99) H Calcium Level 10.2 mg/dL (8.5-10.1) H 9.8 mg/dL (8.5-10.1) Total Bilirubin 0.3 mg/dL (0.2-1.0) 0.3 mg/dL (0.2-1.0) Aspartate Amino Transferase (AST) 17 U/L (15-37) 19 U/L (15-37) Alanine Aminotransferase (ALT) 31 U/L (14-59) 31 U/L (14-59) Alkaline Phosphatase 75 U/L (46-116) 74 U/L (46-116) Creatine Kinase 133 U/L (26-192) Creatine Kinase MB (Mass) 1.7 ng/mL (0.0-3.6) Creatine Kinase MB Relative Index 1.3 % (0-4) Total Protein 6.6 g/dL (6.4-8.2) 6.5 g/dL (6.4-8.2) Albumin 3.5 g/dL (3.4-5.0) 3.2 g/dL (3.4-5.0) L Albumin/Globulin Ratio 1.1 (1.0-1.7) 1.0 (1.0-1.7) Laboratory Tests 10/22/18 14:02 Laboratory Tests 10/22/18 14:10 10/22/18 15:50 EKG EKG [] Radiology/Procedures Radiology/Procedures [][facility] [address] [place], [place] [id number] IMAGING REPORT Signed PATIENT: DIANA WATERS ACCOUNT: [id number] : 1955 LOCATION: ER AGE: 63 SEX: F EXAM STATUS: REG ER ORD. PHYSICIAN: FILEMON OWENS DO REASON: fell yesterday, right hip pain, pelvic pain PROCEDURE: HIP RIGHT 2V WITH PELVIS EXAM: Pelvis and right hip, 3 views. HISTORY: Fall. Pain. COMPARISON: None. FINDINGS: A frontal view of the pelvis and frontal and frog-leg views the right hip are obtained. There is no fracture, dislocation or subluxation. There is a partial sacralization of the L5 vertebral segment. There are surgical clips within the right adnexa. There are vascular calcifications. IMPRESSION: No acute osseous finding. Electronically signed by: Litzy Cabrera MD (10/22/2018 10:23 AM) [place] [id number] DICTATED and SIGNED BY: LITZY CABRERA MD DATE: 10/22/18 1023 [facility] [address] [place], [place] [id number] IMAGING REPORT Signed PATIENT: DIANA WATERS ACCOUNT: [id number] : 1955 LOCATION: ER AGE: 63 SEX: F EXAM STATUS: REG ER ORD. PHYSICIAN: FILEMON OWENS DO REASON: CONFUSION, FELL YESTERDAY, HIT HER HEAD PROCEDURE: CT HEAD WO CONTRAST CT HEAD WO CONTRAST History: CONFUSION, FELL, HIT HEAD, history of stroke Comparison: July 23, 2018 Technique: Noncontrast CT imaging was performed of the head. Exposure: One or more of the following individualized dose reduction techniques were utilized for this examination: 1. Automated exposure control 2. Adjustment of the mA and/or kV according to patient size 3. Use of iterative reconstruction technique. Findings: There is again large area of encephalomalacia with cortical involvement centered in the right parietal lobe. There is again mild lateral ventriculomegaly, overall stable. No acute intracranial hemorrhage is identified. There is mild ill-defined low-density of the supratentorial parenchyma bilaterally as seen previously. There is no new midline shift or intra-axial mass effect. Visualized paranasal sinuses and the mastoid air cells are aerated. There is atherosclerotic calcification of the carotid siphons bilaterally. There are again old lacunar infarcts of the bilateral basal ganglia and likely right thalamus. Impression: 1. No acute intracranial abnormality is identified. There is again large old infarct centered in the right parietal lobe with cortical involvement. Other ill-defined low-density of the supratentorial brain parenchyma is probably due to chronic microvascular ischemic disease, also small old lacunar infarcts as stated. Electronically signed by: Steven Justice MD (10/22/2018 1:43 PM) [id number] DICTATED and SIGNED BY: STEVEN JUSTICE MD DATE: 10/22/18 1340 [facility] [address] [place] [address] IMAGING REPORT Signed PATIENT: DIANA WATERS ACCOUNT: [id number] : 1955 LOCATION: ER AGE: 63 SEX: F EXAM STATUS: REG ER ORD. PHYSICIAN: FILEMON OWENS DO REASON: FELL YESTERDAY, LOWER BACK PAIN PROCEDURE: LUMBAR SPINE 2-3V Examination: 2 views of the lumbar spine HISTORY: History of low back pain after fall COMPARISON: None available FINDINGS: The lumbar vertebral body heights are maintained. There is no evidence of listhesis identified. The facets are well aligned. Mild intervertebral disc and loss identified throughout the visualized lumbar spine. Moderate aortic atherosclerosis. The facets are well aligned. IMPRESSION: Mild degenerative changes lumbar spine. No acute osseous findings. Electronically signed by: Cullen Love MD (10/22/2018 12:05 PM) [id number] DICTATED and SIGNED BY: CULLEN LOVE MD DATE: 10/22/18 1202 Course & Med Decision Making Course & Med Decision Making Pertinent Labs and Imaging studies reviewed. (See chart for details) Patient has been walking in the ER without any problem. SHE was awake, alert, oriented. no acute distress. Dragon Disclaimer Dragon Disclaimer This electronic medical record was generated, in whole or in part, using a voice recognition dictation system. Departure Departure Impression: Primary Impression: Hip pain, right Disposition: 01 HOME, SELF-CARE Condition: STABLE Referrals: AUGUSTO BRUNER MD (PCP) follow up with your doctor this week. Patient Instructions: Hip Pain FILEMON OWENS DO Oct 22, 2018 10:30
--- NOTE | 2018-10-22 12:08 | RAD ---
Examination: 2 views of the lumbar spine HISTORY: History of low back pain after fall COMPARISON: None available FINDINGS: The lumbar vertebral body heights are maintained. There is no evidence of listhesis identified. The facets are well aligned. Mild intervertebral disc and loss identified throughout the visualized lumbar spine. Moderate aortic atherosclerosis. The facets are well aligned. IMPRESSION: Mild degenerative changes lumbar spine. No acute osseous findings. Electronically signed by: Cullen Love MD (10/22/2018 12:05 PM) [id number]
[2018-10-22] MEDS ORDERED: cloNIDine HCL 0.1 MG TABLET PO ONE (12:30)
[2018-10-22 13:26] LABS: BILIRUBIN,URINE NEGATIVE (NEG); CLARITY,URINE CLEAR; COLOR,URINE YELLOW; NITRITE,URINE NEGATIVE (NEG); PH,URINE 5.5; PROTEIN,URINE 100 mg/dL (NEG-TRACE); UROBILINOGEN,URINE 0.2 mg/dL (0.2 mg/dL)
[2018-10-22 13:45] VITALS: BP 201/72
--- NOTE | 2018-10-22 13:46 | RAD ---
CT HEAD WO CONTRAST History: CONFUSION, FELL, HIT HEAD, history of stroke Comparison: July 23, 2018 Technique: Noncontrast CT imaging was performed of the head. Exposure: One or more of the following individualized dose reduction techniques were utilized for this examination: 1. Automated exposure control 2. Adjustment of the mA and/or kV according to patient size 3. Use of iterative reconstruction technique. Findings: There is again large area of encephalomalacia with cortical involvement centered in the right parietal lobe. There is again mild lateral ventriculomegaly, overall stable. No acute intracranial hemorrhage is identified. There is mild ill-defined low-density of the supratentorial parenchyma bilaterally as seen previously. There is no new midline shift or intra-axial mass effect. Visualized paranasal sinuses and the mastoid air cells are aerated. There is atherosclerotic calcification of the carotid siphons bilaterally. There are again old lacunar infarcts of the bilateral basal ganglia and likely right thalamus. Impression: 1. No acute intracranial abnormality is identified. There is again large old infarct centered in the right parietal lobe with cortical involvement. Other ill-defined low-density of the supratentorial brain parenchyma is probably due to chronic microvascular ischemic disease, also small old lacunar infarcts as stated. Electronically signed by: Alejandro Ghosh MD (10/22/2018 1:43 PM) [id number]
[2018-10-22 13:49] LABS: BACTERIA,URINE FEW /HPF (0-FEW); RBC,URINE RARE /HPF (0-2); SQUAMOUS EPITHELIAL CELL,UR MANY /LPF
[2018-10-22 14:19] LABS: BASO % 0 % (0-3); EOS # 0.1 x10^3/uL (0.0-0.7); EOS % 1 % (0-3); HEMATOCRIT 36.5 % (36.0-47.0); HEMOGLOBIN 11.3 g/dL (12.0-15.5); LYMPH % 12 % (24-48); MEAN CORPUSCULAR HEMOGLOBIN 26 pg (25-35); MEAN CORPUSCULAR HGB CONC 31 g/dL (31-37); MEAN CORPUSCULAR VOLUME 83 fL (79-100); MONO # 0.5 x10^3/uL (0.0-1.1); MONO % 6 % (0-9); NEUT # 6.8 x10^3uL (1.8-7.7); NEUT % 81 % (31-73); PLATELET COUNT 215 x10^3/uL (140-400); RED CELL DISTRIBUTION WIDTH 16.8 % (11.5-14.5); WHITE BLOOD COUNT 8.4 x10^3/uL (4.0-11.0)
[2018-10-22 15:00] LABS: PROTHROMBIN TIME PATIENT 12.9 SEC (11.7-14.0)
[2018-10-22 15:11] LABS: ALBUMIN 3.5 g/dL (3.4-5.0); ALBUMIN/GLOBULIN RATIO 1.1 (1.0-1.7); CALCIUM 10.2 mg/dL (8.5-10.1); CREATININE 1.4 mg/dL (0.6-1.0); GFR 45.7; TOTAL BILIRUBIN 0.3 mg/dL (0.2-1.0); TOTAL PROTEIN 6.6 g/dL (6.4-8.2)
[2018-10-22 15:14] LABS: POTASSIUM 6.1 mmol/L (3.5-5.1)
[2018-10-22 16:16] LABS: CALCIUM 9.8 mg/dL (8.5-10.1); CREATININE 1.3 mg/dL (0.6-1.0); GFR 49.7
[2018-10-22 16:17] LABS: ALBUMIN 3.2 g/dL (3.4-5.0); TOTAL BILIRUBIN 0.3 mg/dL (0.2-1.0); TOTAL PROTEIN 6.5 g/dL (6.4-8.2)
[2018-10-22] MEDS ORDERED: IV NORMAL SALINE 500ML BAG 500 ML IV ONE (16:30)
--- NOTE | 2018-10-23 04:54 | EKG ---
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
[2018-11-07] MEDS ORDERED: cefazolin IV (12:29)
== END 2018-10-22 18:26 | disposition home or self-care (01) ==
LOC: ER 10:17
DX: M25.551 Pain in right hip (principal); G89.11 Acute pain due to trauma; M54.5 Low back pain; R41.0 Disorientation, unspecified; I13.0 Hypertensive heart and chronic kidney disease with heart failure and stage 1 through stage 4 chronic kidney disease, or unspecified chronic kidney disease; E11.22 Type 2 diabetes mellitus with diabetic chronic kidney disease; N18.9 Chronic kidney disease, unspecified; I50.9 Heart failure, unspecified; Z94.0 Kidney transplant status; I25.10 Atherosclerotic heart disease of native coronary artery without angina pectoris; E78.00 Pure hypercholesterolemia, unspecified; Z90.710 Acquired absence of both cervix and uterus; Z87.891 Personal history of nicotine dependence; Z95.1 Presence of aortocoronary bypass graft; Z91.041 Radiographic dye allergy status; W18.09XA Striking against other object with subsequent fall, initial encounter; Y93.89 Activity, other specified; Y92.89 Other specified places as the place of occurrence of the external cause; Y99.8 Other external cause status
CPT/HCPCS: 36415; 70450; 72100; 73502; 80053; 81001; 82550; 82553; 84484; 85025; 85610; 85730; 87086; 93005; 99284-25

== ENCOUNTER 2018-10-30 11:06 | Inpatient (IN) | payer MEDICARE, OTHER ==
[~2018-10-30] VITALS: Ht 161.3 cm; Wt 88.2 kg
[2018-10-30 12:03] LABS: BASO % 0 % (0-3); EOS # 0.1 x10^3/uL (0.0-0.7); EOS % 1 % (0-3); HEMATOCRIT 32.2 % (36.0-47.0); HEMOGLOBIN 10.1 g/dL (12.0-15.5); LYMPH # 0.8 x10^3/uL (1.0-4.8); LYMPH % 8 % (24-48); MEAN CORPUSCULAR HEMOGLOBIN 26 pg (25-35); MEAN CORPUSCULAR HGB CONC 31 g/dL (31-37); MEAN CORPUSCULAR VOLUME 81 fL (79-100); MONO % 9 % (0-9); NEUT # 8.9 x10^3uL (1.8-7.7); NEUT % 82 % (31-73); PLATELET COUNT 260 x10^3/uL (140-400); RED BLOOD COUNT 3.96 x10^6/uL (3.50-5.40); WHITE BLOOD COUNT 10.9 x10^3/uL (4.0-11.0)
[2018-10-30 12:06] LABS: CALCIUM 10.2 mg/dL (8.5-10.1); CREATININE 1.3 mg/dL (0.6-1.0); GFR 49.7; POTASSIUM 4.7 mmol/L (3.5-5.1)
[2018-10-30 12:11] LABS: ALBUMIN 2.8 g/dL (3.4-5.0); ALBUMIN/GLOBULIN RATIO 0.7 (1.0-1.7); TOTAL BILIRUBIN 0.4 mg/dL (0.2-1.0)
[2018-10-30] MEDS ORDERED: VANCOMYCIN 1GM IVPB FOR OMNI 250 ML IV ONE (13:00)
--- NOTE | 2018-10-30 13:00 | NUR ---
Wound Care Pt seen in ED room 16, per ED MD request re: multiple foot wounds. Pt has multiple gangrenous toe ulcers on the left foot, a dry eschar on her R great toe, and a large pre-ulcerative callus on the right heel. Per pt report, wounds have been present for approx. 1 month, and a wound care physician is seeing her at [facility]. L foot ulcers with foul odor and purulent serosanguinous drainage, reddened, with some eschar covering, left lower leg reddened and edematous. TAMMI obtained via [employer] with left foot 0.94 and right foot 0.65, dopplered pedal pulses. Wounds painted with betadine and redressed with dry gauze and wrapped with kerlix. No other wounds noted on full skin inspection, recommendation of Arterial studies to BLE, and Xray/MRI, with a Vascular consult. Will f/u with pt during hospitalization.
--- NOTE | 2018-10-30 13:47 | RAD ---
Examination: FOOT LEFT 3V History: DIABETIC FOOT, 1ST, 2ND, 3RD DIGITS WITH OPEN LEISONS, LATERAL ANKLE HAS A SORE ON IT WELL. Comparison/Correlation: 06/15/2017 left foot 3 view x-ray exam Findings: Total 3 images of the left foot were obtained. Vascular calcifications are present. First metatarsophalangeal joint degenerative remodeling is present. Deformity of the second metatarsal neck is present. Osteopenia noted diffusely. Impression: No significant change involving the second metatarsal bone distally. No new bony destructive finding. Consider further imaging if osteomyelitis is a persistent concern. Electronically signed by: Bryan Johnson MD (10/30/2018 1:44 PM) [id number]
--- NOTE | 2018-10-30 14:16 | PHYS DOC ---
Past Medical History Past Medical History: Anemia, CAD, CHF, Diabetes-Type II, High Cholesterol, Hypertension, MRSA, Renal Failure, Seizure, Other Additional Past Medical Histor: encephalopathy,chronic pain,epilepsy Past Surgical History: Coronary Bypass Surgery, Hysterectomy, Other Additional Past Surgical Histo: kidney transplant,foot surgery,AV fistula placement Alcohol Use: None Drug Use: None Adult General Chief Complaint Chief Complaint: TOE PROBLEM HPI HPI Patient is a 63 year old female patient resident of care home with multiple medical problem brought in by EMS because of left toes infection. Patient has history of diabetes mellitus and had infected left second and third and fourth toes for several days. Patient denies fever and chills, nausea and vomiting, focal neuro deficit. Patient complaining of pain in her left toes. Patient has history of dementia and is a poor historian. Review of Systems Review of Systems Constitutional: Denies fever or chills [] Eyes: Denies change in visual acuity, redness, or eye pain [] HENT: Denies nasal congestion or sore throat [] Respiratory: Denies cough or shortness of breath [] Cardiovascular: No additional information not addressed in HPI [] GI: Denies abdominal pain, nausea, vomiting, bloody stools or diarrhea [] : Denies dysuria or hematuria [] Musculoskeletal: Denies back pain or joint pain [] Integument: Denies rash or skin lesions [] Neurologic: Denies headache, focal weakness or sensory changes [] Endocrine: Denies polyuria or polydipsia [] All other systems were reviewed and found to be within normal limits, except as documented in this note. Current Medications Current Medications Allergies Allergies Allergies Coded Allergies Type Severity Reaction Last Updated Verified I S O L A T I O N *CONTACT* Allergy Unknown 01/09/18 Yes No Known Medication Allergies Allergy Unknown 01/09/18 Yes Physical Exam Physical Exam Constitutional: Well nourished, no acute distress, non-toxic appearance. [] HENT: Normocephalic, atraumatic Eyes: PERRLA, EOMI, conjunctiva normal, no discharge. [] Neck: Normal range of motion, no tenderness, supple, no stridor. [] Cardiovascular:Heart rate regular rhythm, no murmur [] Lungs & Thorax: Bilateral breath sounds clear to auscultation [] Abdomen: Bowel sounds normal, soft, no tenderness, no masses, no pulsatile masses. [] Skin: Warm, dry, no erythema, no rash. [] Back: No tenderness, no CVA tenderness. [] Extremities: Left toes with edema and erythema and necrotic tissue with discharge and foul-smelling, nondetectable dorsalis pedis pulse with Doppler Neurologic: Alert and oriented X 1, normal motor function, normal sensory function, no focal deficits noted. [] Psychologic: Affect anxious, judgement normal, mood normal. [] Current Patient Data Vital Signs Vital Signs Date Time Temp Pulse Resp B/P (MAP) Pulse Ox O2 Delivery O2 Flow Rate FiO2 10/30/18 11:06 98.7 77 20 138/89 (105) 100 Room Air 98.7 Lab Values Laboratory Tests Test 10/30/18 11:34 White Blood Count 10.9 x10^3/uL (4.0-11.0) Red Blood Count 3.96 x10^6/uL (3.50-5.40) Hemoglobin 10.1 g/dL (12.0-15.5) L Hematocrit 32.2 % (36.0-47.0) L Mean Corpuscular Volume 81 fL (79-100) Mean Corpuscular Hemoglobin 26 pg (25-35) Mean Corpuscular Hemoglobin Concent 31 g/dL (31-37) Red Cell Distribution Width 16.0 % (11.5-14.5) H Platelet Count 260 x10^3/uL (140-400) Neutrophils (%) (Auto) 82 % (31-73) H Lymphocytes (%) (Auto) 8 % (24-48) L Monocytes (%) (Auto) 9 % (0-9) Eosinophils (%) (Auto) 1 % (0-3) Basophils (%) (Auto) 0 % (0-3) Neutrophils # (Auto) 8.9 x10^3uL (1.8-7.7) H Lymphocytes # (Auto) 0.8 x10^3/uL (1.0-4.8) L Monocytes # (Auto) 1.0 x10^3/uL (0.0-1.1) Eosinophils # (Auto) 0.1 x10^3/uL (0.0-0.7) Basophils # (Auto) 0.0 x10^3/uL (0.0-0.2) Sodium Level 142 mmol/L (136-145) Potassium Level 4.7 mmol/L (3.5-5.1) Chloride Level 105 mmol/L (98-107) Carbon Dioxide Level 27 mmol/L (21-32) Anion Gap 10 (6-14) Blood Urea Nitrogen 27 mg/dL (7-20) H Creatinine 1.3 mg/dL (0.6-1.0) H Estimated GFR (Cockcroft-Gault) 49.7 BUN/Creatinine Ratio 21 (6-20) H Glucose Level 251 mg/dL (70-99) H Lactic Acid Level 1.2 mmol/L (0.4-2.0) Calcium Level 10.2 mg/dL (8.5-10.1) H Total Bilirubin 0.4 mg/dL (0.2-1.0) Aspartate Amino Transferase (AST) 13 U/L (15-37) L Alanine Aminotransferase (ALT) 24 U/L (14-59) Alkaline Phosphatase 71 U/L (46-116) Total Protein 7.0 g/dL (6.4-8.2) Albumin 2.8 g/dL (3.4-5.0) L Albumin/Globulin Ratio 0.7 (1.0-1.7) L Laboratory Tests 10/30/18 11:34 Laboratory Tests 10/30/18 11:34 EKG EKG [] Radiology/Procedures Radiology/Procedures [facility] [address] [place] [address] IMAGING REPORT Signed PATIENT: DIANA WATERS ACCOUNT: [id number] : 1955 LOCATION: ER AGE: 63 SEX: F EXAM STATUS: REG ER ORD. PHYSICIAN: JAY MUNIZ MD REASON: diabetic foot PROCEDURE: FOOT LEFT 3V Examination: FOOT LEFT 3V History: DIABETIC FOOT, 1ST, 2ND, 3RD DIGITS WITH OPEN LEISONS, LATERAL ANKLE HAS A SORE ON IT WELL. Comparison/Correlation: 06/15/2017 left foot 3 view x-ray exam Findings: Total 3 images of the left foot were obtained. Vascular calcifications are present. First metatarsophalangeal joint degenerative remodeling is present. Deformity of the second metatarsal neck is present. Osteopenia noted diffusely. Impression: No significant change involving the second metatarsal bone distally. No new bony destructive finding. Consider further imaging if osteomyelitis is a persistent concern. Electronically signed by: Bryan Angel MD (10/30/2018 1:44 PM) [id number] DICTATED and SIGNED BY: BRYAN ANGEL MD DATE: 10/30/18 1341 Course & Med Decision Making Course & Med Decision Making Pertinent Labs and Imaging studies reviewed. (See chart for details) Evaluation of patient in ER showed 63-year-old female patient with history of diabetes and dementia and resident of care home brought in because of infection of left toes with sign of gangrene. Patient was started on antibiotic and admitted to hospitalist. Patient had blood pressure of 150s at arrival to ER but later on became anxious and her blood pressure increased to more than 200 and treated with Ativan with improvement of her blood pressure. Dragon Disclaimer Dragon Disclaimer This electronic medical record was generated, in whole or in part, using a voice recognition dictation system. Departure Departure Impression: Primary Impression: Diabetic foot ulcers Additional Impressions: CKD (chronic kidney disease), stage III Hyperglycemia Uncontrolled diabetes mellitus Hypertensive urgency Anxiety Dementia Disposition: ADMITTED INPATIENT (@1240) Admitting Physician: Jesus Bruner (accepted admission at 1250) Referrals: JESUS BRUNER MD (PCP) Problem Qualifiers Primary Impression: Diabetic foot ulcers Diabetic foot ulcer location: toe Diabetes mellitus type: type 2 Laterality : left Non-pressure ulcer stage: with necrosis of muscle Qualified Codes: E11.621 - Type 2 diabetes mellitus with foot ulcer; L97.523 - Non-pressure chronic ulcer of other part of left foot with necrosis of muscle Additional Impressions: Uncontrolled diabetes mellitus Diabetes mellitus type: type 2 Glycemic state: with hyperglycemia Qualified Codes: E11.65 - Type 2 diabetes mellitus with hyperglycemia Dementia Dementia type: Alzheimer's disease Alzheimer's disease onset: early-onset Dementia behavioral disturbance: without behavioral disturbance Qualified Codes: G30.0 - Alzheimer's disease with early onset; F02.80 - Dementia in other diseases classified elsewhere without behavioral disturbance JAY MUNIZ MD Oct 30, 2018 14:16
[2018-10-30 14:47] LABS: BILIRUBIN,URINE NEGATIVE (NEG); CLARITY,URINE CLOUDY; COLOR,URINE YELLOW; NITRITE,URINE NEGATIVE (NEG); PROTEIN,URINE 100 mg/dL (NEG-TRACE); UROBILINOGEN,URINE 0.2 mg/dL (0.2 mg/dL)
[2018-10-30 15:01] LABS: BACTERIA,URINE 0 /HPF (0-FEW); RBC,URINE OCC /HPF (0-2)
[2018-10-30 15:02] LABS: SQUAMOUS EPITHELIAL CELL,UR FEW /LPF
[2018-10-30] MEDS ORDERED: HYDROcodone/APAP 7.5/325MG 1 TAB TABLET PO PRN (15:15)
[2018-10-30 16:00] VITALS: BP 191/56
--- NOTE | 2018-10-30 16:30 | NUR ---
pt admitted to room 582 from ER. wounds on bilat feet photographed and dressed by wound care in ED per DOMINIC Sosa in ED(see note from DOMINIC Owens). dressing c/d/i upon admission to unit. pt moved from cart to bed using slide sheet. denies pain at this time. oriented to room and call light. bed alarm in place. will monitor patient.
--- NOTE | 2018-10-30 16:52 | PDOC ---
Provider Note Provider Note (please see full dictation) 63 yo female with DM, previous renal transplant, CAD and PVD who presents with bilateral toe gangrene. She has dry eschars at the left 1-3rd toes and right 1st toe. Diminished doppler flow in both feet. Will get an arterial US for initial evaluation, but she will likely need angiogram and possible intervention prior to toe amputations. I discussed with her as well as her daughter by phone. SYBIL MCNEILL MD Oct 30, 2018 16:52
[2018-10-30] MEDS: FOLIC/VIT B COMP W-C (RENAL) TABLET. PO SCH (17:26)
[2018-10-30] MEDS: predniSONE 5 MG TABLET PO SCH (17:26)
[2018-10-30] MEDS: CARVEDILOL 6.25 MG TABLET. PO SCH (17:26)
[2018-10-30] MEDS: FERROUS SULFATE 325 MG TABLET. PO SCH (17:26)
[2018-10-30] MEDS: METOCLOPRAMIDE 5 MG TABLET. PO SCH (17:27)
[2018-10-30] MEDS: PANTOPRAZOLE 40 MG TABLET.DR. PO SCH (17:27)
[2018-10-30] MEDS: LISINOPRIL 10 MG TABLET PO SCH (17:27)
[2018-10-30] MEDS: ASPIRIN 325 MG TABLET PO SCH (17:27)
[2018-10-30] MEDS: FUROSEMIDE 40 MG TABLET. PO SCH (17:27)
[2018-10-30] MEDS: INSULIN LISPRO 300 UNITS/3 ML INSULN.PEN. SQ SCH ×2 (17:34→17:35)
--- NOTE | 2018-10-30 17:55 | RAD ---
EXAM: AP View of the chest DATE: 10/30/2018 3:27 PM INDICATION: Chest pain, CAD COMPARISON: 12/19/2017 FINDINGS: Changes of cardiothoracic surgery are seen with median sternotomy wires. Inferior most median sternotomy wire is fractured, unchanged. The heart is not enlarged. Mediastinal and hilar contours are normal. No lobar consolidation. A 1.7 cm nodular density projects over the right midlung. This should be further assessed by CT. No pleural effusion or pneumothorax. IMPRESSION: 1. 1.7 cm nodular density overlying the right midlung should be further assessed by CT. 2. No lobar consolidation. Electronically signed by: Chandler Amezcua MD (10/30/2018 5:52 PM) [facility]
[2018-10-30 19:00] VITALS: BP 152/56
[2018-10-30] MEDS: ceFAZolin SODIUM 1 GM in IV DEXTROSE 5% 50 ML IV SCH (21:10)
[2018-10-30] MEDS: MYCOPHENOLATE ACID 180 MG TABLET.DR. PO SCH (21:10)
[2018-10-30] MEDS: TACROLIMUS 0.5 MG CAPSULE PO SCH (21:10)
[2018-10-30] MEDS: ATORVASTATIN CALCIUM 40 MG TABLET. PO SCH (21:10)
[2018-10-30] MEDS: levETIRAcetam 500 MG TABLET PO SCH (21:10)
[2018-10-30] MEDS: INSULIN GLARGINE 300 UNITS/3 ML INSULN.PEN. SQ SCH (21:23)
[2018-10-30] MEDS: HEPARIN for SUB-Q USE 5,000 UNIT/ML VIAL. SQ SCH (21:24)
[2018-10-30 23:00] VITALS: BP 138/65
--- NOTE | 2018-10-31 02:35 | CONS ---
DATE OF CONSULTATION: 10/30/2018 CHIEF COMPLAINT: Toe discoloration. HISTORY OF PRESENT ILLNESS: The patient is a 63-year-old female with diabetes, hypertension, chronic kidney disease, status post renal transplant, coronary artery disease, and peripheral arterial disease, who presents with discoloration of toes on both feet. She currently lives in a halfway facility. She is unable to articulate how long her toes have been discolored. She denies any specific pain at this time. She denies any fevers or chills. PAST MEDICAL HISTORY: 1. Diabetes. 2. Hypertension. 3. Coronary artery disease. 4. Chronic kidney disease, now status post renal transplant. 5. Gastroesophageal reflux disease. PAST SURGICAL HISTORY: 1. Renal transplant. 2. Left arm arteriovenous shunt. 3. Coronary artery bypass surgery. 4. Hysterectomy. CURRENT MEDICATIONS: Diflucan, bisacodyl, Ancef, subcutaneous heparin, Prograf 0.5 mg at bedtime, mycophenolate 180 mg b.i.d., insulin, hydralazine, Keppra, atorvastatin, prednisone 5 mg every day, pantoprazole, lisinopril, Lasix, vitamin B/vitamin C, iron sulfate, Coreg, aspirin, Reglan. ALLERGIES: No known drug allergies. SOCIAL HISTORY: She is currently living in a halfway facility. She denies any smoking or alcohol use. FAMILY HISTORY: Noncontributory. REVIEW OF SYSTEMS: She denies any fevers, chills, chest pain or shortness of breath. She denies any unilateral weakness, numbness, visual loss, speech change, other TIA or stroke symptoms. She states that she is able to walk. She does have some underlying confusion. It is unclear how accurate her review is going to be. She denies any dysuria or hematuria. She denies any discomfort in the lower extremity. PHYSICAL EXAMINATION: GENERAL: This is an obese female in no acute distress. VITAL SIGNS: Temperature 97.8, pulse 74, blood pressure 191/56, respirations 18. NECK: Supple, no lymphadenopathy. CARDIOVASCULAR: Regular rhythm. ABDOMEN: Obese, soft, nontender, nondistended. She has a well-healed right lower abdominal incision scar. No palpable hernias. EXTREMITIES: She has weak femoral pulses bilaterally. Her radial pulses are weak. She has a left forearm arteriovenous shunt with a palpable thrill. She has healed surgical scars on her right medial leg consistent with previous saphenous vein retrieval. She has a thick callus over her right plantar heel, there is an eschar that is dry without erythema or signs of infection at the distal right first toe. She has eschar involving the distal portions of the left first, second and third toes. There is no erythema or drainage at this time. LABORATORY DATA: Significant for white blood cell 10.9, hemoglobin 10.1, platelet count of 260. Sodium 142, potassium 4.7, BUN 27, creatinine 1.3, glucose 251. A noncontrast CT scan done almost a year ago showed significant calcification at the aortic bifurcation. There also appeared to be circumferential calcification or stents within the proximal superficial femoral arteries bilaterally. IMPRESSION: 1. Bilateral toe gangrene as noted above. 2. Peripheral arterial disease. 3. Chronic kidney disease, status post renal transplant. 4. Hypertension. 5. Coronary artery disease. 6. Diabetes. RECOMMENDATIONS: 1. Optimization of medical management for both diabetes and hypertension. 2. Protective measures to both feet. She is to keep her feet elevated off the bed with a pillow behind her cast. 3. Arterial ultrasound to evaluate the extent of her arterial occlusive disease. I anticipate that she will require angiogram with possible efforts at revascularization, but will start with an arterial ultrasound. If angiogram is indicated, this can be performed by Dr. Brown on 11/01/2018. I discussed the findings with her and her daughter by phone. SYBIL MCNEILL MD DR: MAGI/jeanie JOB#: [id number] / [id number] Jesus Rizvi MD
[2018-10-31 03:00] VITALS: BP 115/57
[2018-10-31] MEDS: ceFAZolin SODIUM 1 GM in IV DEXTROSE 5% 50 ML IV SCH (06:21)
[2018-10-31 06:53] LABS: BASO % 0 % (0-3); EOS # 0.1 x10^3/uL (0.0-0.7); EOS % 2 % (0-3); HEMATOCRIT 31.4 % (36.0-47.0); HEMOGLOBIN 9.9 g/dL (12.0-15.5); LYMPH # 1.4 x10^3/uL (1.0-4.8); LYMPH % 15 % (24-48); MEAN CORPUSCULAR HEMOGLOBIN 25 pg (25-35); MEAN CORPUSCULAR HGB CONC 32 g/dL (31-37); MEAN CORPUSCULAR VOLUME 81 fL (79-100); MONO # 0.9 x10^3/uL (0.0-1.1); MONO % 10 % (0-9); NEUT # 6.9 x10^3uL (1.8-7.7); NEUT % 74 % (31-73); PLATELET COUNT 272 x10^3/uL (140-400); RED BLOOD COUNT 3.88 x10^6/uL (3.50-5.40); RED CELL DISTRIBUTION WIDTH 15.8 % (11.5-14.5); WHITE BLOOD COUNT 9.3 x10^3/uL (4.0-11.0)
[2018-10-31 07:00] VITALS: BP 155/55
[2018-10-31 07:01] LABS: CALCIUM 10.2 mg/dL (8.5-10.1); CREATININE 1.6 mg/dL (0.6-1.0); GFR 39.1; POTASSIUM 4.3 mmol/L (3.5-5.1)
--- NOTE | 2018-10-31 07:47 | RAD ---
Bilateral lower extremity arterial ultrasound, 10/30/2018: HISTORY: Peripheral vascular disease Duplex evaluation of the major arteries in both lower extremities was performed including grayscale, color-flow and spectral Doppler analysis. There is moderate scattered atherosclerotic plaquing bilaterally. On the right, the common femoral Doppler waveform is biphasic. At and distal to the right superficial femoral artery level the Doppler waveforms are monophasic. There is a velocity acceleration in the distal right superficial femoral artery up to approximately 400 cm/s. This suggests moderate underlying stenosis. The peak systolic velocity in the femoral artery just proximal to this level is 137 cm/s. The right popliteal systolic velocity is 139 cm/s. Patent posterior tibial and anterior tibial arteries are present in the right lower leg demonstrating mildly dampened monophasic Doppler waveforms. The right peroneal artery is not visualized. A patent right dorsalis pedis artery is evident with a monophasic Doppler waveform. On the left, the common femoral Doppler waveform is biphasic. The superficial femoral and popliteal Doppler waveforms are monophasic. No significant focal velocity acceleration is seen in the left femoral or popliteal arteries to suggest high-grade focal stenosis. Patent posterior tibial and anterior tibial and dorsalis pedis arteries are present on the left demonstrating good amplitude monophasic Doppler waveforms. The left peroneal artery could not be visualized. IMPRESSION: 1. Moderate scattered atherosclerotic plaquing bilaterally. 2. Doppler findings suggesting moderate stenosis in the distal right superficial femoral artery. 3. Nonvisualization of the peroneal arteries in both lower legs. 4. Mild to moderate degradation of the distal Doppler waveforms, right greater the left. Electronically signed by: Raymond Miller MD (10/31/2018 7:44 AM) [facility]
[2018-10-31] MEDS: FOLIC/VIT B COMP W-C (RENAL) TABLET. PO SCH (08:33)
[2018-10-31] MEDS: ALPRAZolam 0.25 MG TABLET PO PRN (08:33)
[2018-10-31] MEDS: CARVEDILOL 6.25 MG TABLET. PO SCH ×2 (08:34→17:27)
[2018-10-31] MEDS: BISACODYL 5 MG TABLET.DR. PO SCH (08:34)
[2018-10-31] MEDS: FERROUS SULFATE 325 MG TABLET. PO SCH (08:34)
[2018-10-31] MEDS: FLUCONAZOLE 100 MG TABLET. PO SCH (08:34)
[2018-10-31] MEDS: levETIRAcetam 500 MG TABLET PO SCH ×2 (08:34→20:48)
[2018-10-31] MEDS: LISINOPRIL 10 MG TABLET PO SCH (08:35)
[2018-10-31] MEDS: METOCLOPRAMIDE 5 MG TABLET. PO SCH ×3 (08:35→15:47)
[2018-10-31] MEDS: FUROSEMIDE 40 MG TABLET. PO SCH (08:35)
[2018-10-31] MEDS: MYCOPHENOLATE ACID 180 MG TABLET.DR. PO SCH ×2 (08:35→20:48)
[2018-10-31] MEDS: ASPIRIN 325 MG TABLET PO SCH (08:35)
[2018-10-31] MEDS: PANTOPRAZOLE 40 MG TABLET.DR. PO SCH (08:35)
[2018-10-31] MEDS: INSULIN LISPRO 300 UNITS/3 ML INSULN.PEN. SQ SCH ×6 (08:48→17:31)
[2018-10-31] MEDS: HEPARIN for SUB-Q USE 5,000 UNIT/ML VIAL. SQ SCH ×2 (08:50→20:50)
[2018-10-31] MEDS ORDERED: NON FORMULARY ITEM (Fluconazole (Diflucan) 1 TAB) PO SCH (09:00)
--- NOTE | 2018-10-31 09:35 | NUR ---
IP: Pt has a hx of + mrsa screens since 2017 with most recent on 12/22/17. Pt to be in contact precautions until there are 2 negative screens 7 days apart.
--- NOTE | 2018-10-31 09:59 | PDOC ---
PROGRESS NOTES Subjective Subjective Patient seen and examined in room. Patient c/o bilateral foot pain at rest. Objective Objective Vital Signs Date Time Temp Pulse Resp B/P (MAP) Pulse Ox O2 Delivery O2 Flow Rate FiO2 10/31/18 08:35 72 155/55 10/31/18 07:00 98.2 17 100 Room Air 98.2 Intake and Output 10/31/18 07:00 Intake Total 720 ml Output Total 425 ml Balance 295 ml Intake Oral 420 ml IV Total 300 ml Output Urine Total 425 ml Physical Exam Physical Exam Awake and alert HRR Non-labored respirations Abdomen soft, NTND, obese 1+ femoral pulses bilaterally. Palpable radial pulses. Left forearm AV shunt with palpable thrill. Healed surgical scars on her right medial leg and left medial calf consistent with previous saphenous vein retrieval. Thick callus over her right plantar heel, dry eschar without erythema or signs of infection at the distal right first toe. Eschar distal portions of the left first, second and third toes with no erythema or drainage. Abdomen: Other (obese, healed midline scar) Extremities: Other Assessment Assessment Problems Medical Problems: (1) Anxiety Status: Acute (2) Dementia Status: Acute (3) Diabetic foot ulcers Status: Acute (4) Hyperglycemia Status: Acute (5) Uncontrolled diabetes mellitus Status: Acute Plan Plan of Care IMPRESSION: 1. Bilateral toe gangrene. 2. Peripheral arterial disease. 3. Chronic kidney disease, status post renal transplant. 4. Hypertension. 5. Coronary artery disease. 6. Diabetes. RECOMMENDATIONS: 1. Optimization of medical management for both diabetes and hypertension. 2. Protective measures to both feet. Elevate legs. Local wound care. 4. Angiogram tentatively scheduled with Dr. bass Tomorrow. Will likely need to use CO2. 3. Creatine elevated today, 1.6 consult, s/p renal transplant, nephrology for hydration prior to Angiogram, will start NS TRA 50cc/hr Comment Review of Relevant I have reviewed the following items warner (where applicable) has been applied. Labs Laboratory Tests Test 10/30/18 11:34 10/30/18 14:20 10/30/18 16:16 10/30/18 21:09 White Blood Count 10.9 x10^3/uL (4.0-11.0) Red Blood Count 3.96 x10^6/uL (3.50-5.40) Hemoglobin 10.1 g/dL (12.0-15.5) Hematocrit 32.2 % (36.0-47.0) Mean Corpuscular Volume 81 fL (79-100) Mean Corpuscular Hemoglobin 26 pg (25-35) Mean Corpuscular Hemoglobin Concent 31 g/dL (31-37) Red Cell Distribution Width 16.0 % (11.5-14.5) Platelet Count 260 x10^3/uL (140-400) Neutrophils (%) (Auto) 82 % (31-73) Lymphocytes (%) (Auto) 8 % (24-48) Monocytes (%) (Auto) 9 % (0-9) Eosinophils (%) (Auto) 1 % (0-3) Basophils (%) (Auto) 0 % (0-3) Neutrophils # (Auto) 8.9 x10^3uL (1.8-7.7) Lymphocytes # (Auto) 0.8 x10^3/uL (1.0-4.8) Monocytes # (Auto) 1.0 x10^3/uL (0.0-1.1) Eosinophils # (Auto) 0.1 x10^3/uL (0.0-0.7) Basophils # (Auto) 0.0 x10^3/uL (0.0-0.2) Sodium Level 142 mmol/L (136-145) Potassium Level 4.7 mmol/L (3.5-5.1) Chloride Level 105 mmol/L (98-107) Carbon Dioxide Level 27 mmol/L (21-32) Anion Gap 10 (6-14) Blood Urea Nitrogen 27 mg/dL (7-20) Creatinine 1.3 mg/dL (0.6-1.0) Estimated GFR (Cockcroft-Gault) 49.7 BUN/Creatinine Ratio 21 (6-20) Glucose Level 251 mg/dL (70-99) Lactic Acid Level 1.2 mmol/L (0.4-2.0) Calcium Level 10.2 mg/dL (8.5-10.1) Total Bilirubin 0.4 mg/dL (0.2-1.0) Aspartate Amino Transf (AST/SGOT) 13 U/L (15-37) Alanine Aminotransferase (ALT/SGPT) 24 U/L (14-59) Alkaline Phosphatase 71 U/L (46-116) Total Protein 7.0 g/dL (6.4-8.2) Albumin 2.8 g/dL (3.4-5.0) Albumin/Globulin Ratio 0.7 (1.0-1.7) Urine Collection Type Void Urine Color Yellow Urine Clarity Cloudy Urine pH 6.0 Urine Specific Ambrose 1.020 Urine Protein 100 mg/dL (NEG-TRACE) Urine Glucose (UA) 100 mg/dL (NEG) Urine Ketones (Stick) Negative mg/dL (NEG) Urine Blood Negative (NEG) Urine Nitrite Negative (NEG) Urine Bilirubin Negative (NEG) Urine Urobilinogen Dipstick 0.2 mg/dL (0.2 mg/dL) Urine Leukocyte Esterase Negative (NEG) Urine RBC Occ /HPF (0-2) Urine WBC 1-4 /HPF (0-4) Urine Squamous Epithelial Cells Few /LPF Urine Bacteria 0 /HPF (0-FEW) Glucose (Fingerstick) 276 mg/dL (70-99) 222 mg/dL (70-99) Test 10/31/18 06:20 10/31/18 07:29 White Blood Count 9.3 x10^3/uL (4.0-11.0) Red Blood Count 3.88 x10^6/uL (3.50-5.40) Hemoglobin 9.9 g/dL (12.0-15.5) Hematocrit 31.4 % (36.0-47.0) Mean Corpuscular Volume 81 fL (79-100) Mean Corpuscular Hemoglobin 25 pg (25-35) Mean Corpuscular Hemoglobin Concent 32 g/dL (31-37) Red Cell Distribution Width 15.8 % (11.5-14.5) Platelet Count 272 x10^3/uL (140-400) Neutrophils (%) (Auto) 74 % (31-73) Lymphocytes (%) (Auto) 15 % (24-48) Monocytes (%) (Auto) 10 % (0-9) Eosinophils (%) (Auto) 2 % (0-3) Basophils (%) (Auto) 0 % (0-3) Neutrophils # (Auto) 6.9 x10^3uL (1.8-7.7) Lymphocytes # (Auto) 1.4 x10^3/uL (1.0-4.8) Monocytes # (Auto) 0.9 x10^3/uL (0.0-1.1) Eosinophils # (Auto) 0.1 x10^3/uL (0.0-0.7) Basophils # (Auto) 0.0 x10^3/uL (0.0-0.2) Sodium Level 141 mmol/L (136-145) Potassium Level 4.3 mmol/L (3.5-5.1) Chloride Level 105 mmol/L (98-107) Carbon Dioxide Level 27 mmol/L (21-32) Anion Gap 9 (6-14) Blood Urea Nitrogen 28 mg/dL (7-20) Creatinine 1.6 mg/dL (0.6-1.0) Estimated GFR (Cockcroft-Gault) 39.1 Glucose Level 235 mg/dL (70-99) Calcium Level 10.2 mg/dL (8.5-10.1) Glucose (Fingerstick) 194 mg/dL (70-99) Laboratory Tests Test 10/30/18 11:34 10/30/18 14:20 10/30/18 16:16 10/30/18 21:09 White Blood Count 10.9 x10^3/uL (4.0-11.0) Red Blood Count 3.96 x10^6/uL (3.50-5.40) Hemoglobin 10.1 g/dL (12.0-15.5) Hematocrit 32.2 % (36.0-47.0) Mean Corpuscular Volume 81 fL (79-100) Mean Corpuscular Hemoglobin 26 pg (25-35) Mean Corpuscular Hemoglobin Concent 31 g/dL (31-37) Red Cell Distribution Width 16.0 % (11.5-14.5) Platelet Count 260 x10^3/uL (140-400) Neutrophils (%) (Auto) 82 % (31-73) Lymphocytes (%) (Auto) 8 % (24-48) Monocytes (%) (Auto) 9 % (0-9) Eosinophils (%) (Auto) 1 % (0-3) Basophils (%) (Auto) 0 % (0-3) Neutrophils # (Auto) 8.9 x10^3uL (1.8-7.7) Lymphocytes # (Auto) 0.8 x10^3/uL (1.0-4.8) Monocytes # (Auto) 1.0 x10^3/uL (0.0-1.1) Eosinophils # (Auto) 0.1 x10^3/uL (0.0-0.7) Basophils # (Auto) 0.0 x10^3/uL (0.0-0.2) Sodium Level 142 mmol/L (136-145) Potassium Level 4.7 mmol/L (3.5-5.1) Chloride Level 105 mmol/L (98-107) Carbon Dioxide Level 27 mmol/L (21-32) Anion Gap 10 (6-14) Blood Urea Nitrogen 27 mg/dL (7-20) Creatinine 1.3 mg/dL (0.6-1.0) Estimated GFR (Cockcroft-Gault) 49.7 BUN/Creatinine Ratio 21 (6-20) Glucose Level 251 mg/dL (70-99) Lactic Acid Level 1.2 mmol/L (0.4-2.0) Calcium Level 10.2 mg/dL (8.5-10.1) Total Bilirubin 0.4 mg/dL (0.2-1.0) Aspartate Amino Transf (AST/SGOT) 13 U/L (15-37) Alanine Aminotransferase (ALT/SGPT) 24 U/L (14-59) Alkaline Phosphatase 71 U/L (46-116) Total Protein 7.0 g/dL (6.4-8.2) Albumin 2.8 g/dL (3.4-5.0) Albumin/Globulin Ratio 0.7 (1.0-1.7) Urine Collection Type Void Urine Color Yellow Urine Clarity Cloudy Urine pH 6.0 Urine Specific Ambrose 1.020 Urine Protein 100 mg/dL (NEG-TRACE) Urine Glucose (UA) 100 mg/dL (NEG) Urine Ketones (Stick) Negative mg/dL (NEG) Urine Blood Negative (NEG) Urine Nitrite Negative (NEG) Urine Bilirubin Negative (NEG) Urine Urobilinogen Dipstick 0.2 mg/dL (0.2 mg/dL) Urine Leukocyte Esterase Negative (NEG) Urine RBC Occ /HPF (0-2) Urine WBC 1-4 /HPF (0-4) Urine Squamous Epithelial Cells Few /LPF Urine Bacteria 0 /HPF (0-FEW) Glucose (Fingerstick) 276 mg/dL (70-99) 222 mg/dL (70-99) Test 10/31/18 06:20 10/31/18 07:29 White Blood Count 9.3 x10^3/uL (4.0-11.0) Red Blood Count 3.88 x10^6/uL (3.50-5.40) Hemoglobin 9.9 g/dL (12.0-15.5) Hematocrit 31.4 % (36.0-47.0) Mean Corpuscular Volume 81 fL (79-100) Mean Corpuscular Hemoglobin 25 pg (25-35) Mean Corpuscular Hemoglobin Concent 32 g/dL (31-37) Red Cell Distribution Width 15.8 % (11.5-14.5) Platelet Count 272 x10^3/uL (140-400) Neutrophils (%) (Auto) 74 % (31-73) Lymphocytes (%) (Auto) 15 % (24-48) Monocytes (%) (Auto) 10 % (0-9) Eosinophils (%) (Auto) 2 % (0-3) Basophils (%) (Auto) 0 % (0-3) Neutrophils # (Auto) 6.9 x10^3uL (1.8-7.7) Lymphocytes # (Auto) 1.4 x10^3/uL (1.0-4.8) Monocytes # (Auto) 0.9 x10^3/uL (0.0-1.1) Eosinophils # (Auto) 0.1 x10^3/uL (0.0-0.7) Basophils # (Auto) 0.0 x10^3/uL (0.0-0.2) Sodium Level 141 mmol/L (136-145) Potassium Level 4.3 mmol/L (3.5-5.1) Chloride Level 105 mmol/L (98-107) Carbon Dioxide Level 27 mmol/L (21-32) Anion Gap 9 (6-14) Blood Urea Nitrogen 28 mg/dL (7-20) Creatinine 1.6 mg/dL (0.6-1.0) Estimated GFR (Cockcroft-Gault) 39.1 Glucose Level 235 mg/dL (70-99) Calcium Level 10.2 mg/dL (8.5-10.1) Glucose (Fingerstick) 194 mg/dL (70-99) Medications Current Medications Cefazolin Sodium/ Dextrose 50 ml @ 100 mls/hr 1X ONCE IV Last administered on 10/30/18 13:01; Start 10/30/18 at 13:00; Stop 10/30/18 at 13:29; Status DC Vancomycin HCl 250 ml @ 250 mls/hr 1X ONCE IV Last administered on 10/30/18at 14:53; Start 10/30/18 at 13:00; Stop 10/30/18 at 13:59; Status DC Alprazolam (Xanax) 0.25 mg PRN BID PRN PO ANXIETY / AGITATION Last administered on 10/31/18 08:33; Start 10/30/18 at 15:15 Aspirin (Gurwinder Aspirin) 325 mg DAILY PO Last administered on 10/31/18 08:35; Start 10/30/18 at 17:00 Atorvastatin Calcium (Lipitor) 80 mg QHS PO Last administered on 10/30/18at 21:10 ; Start 10/30/18 at 21:00 Bisacodyl (Dulcolax Tab) 20 mg DAILY PO Last administered on 10/31/18 08:34; Start 10/31/18 at 09:00 Carvedilol (Coreg) 12.5 mg BIDWMEALS PO Last administered on 10/31/18 08:34; Start 10/30/18 at 17:00 Ferrous Sulfate (Feosol) 325 mg DAILY PO Last administered on 10/31/18 08:34; Start 10/30/18 at 17:00 Vitamin B Complex/ Vitamin C (Vicki-Stacey) 1 tab DAILY PO Last administered on 08:33; Start 10/30/18 at 17:00 Furosemide (Lasix) 40 mg DAILY PO Last administered on 10/31/18 08:35; Start at 17:00 Acetaminophen/ Hydrocodone Bitart (Lortab 7.5/325) 1 tab PRN Q4HRS PRN PO PAIN ; Start 10/30/18 at 15:15 Levetiracetam (Keppra) 500 mg BID PO Last administered on 10/31/18 08:34; Start 10/30/18 at 21:00 Lisinopril (Prinivil) 10 mg DAILY PO Last administered on 10/31/18 08:35; Start 10/30/18 at 17:00 Metoclopramide HCl (Reglan) 5 mg TIDAC PO Last administered on 10/31/18 08:35; Start 10/30/18 at 16:30 Pantoprazole Sodium (Protonix) 40 mg DAILY PO Last administered on 10/31/18 08: 35; Start 10/30/18 at 17:00 Prednisone (Prednisone) 5 mg DAILY PO Last administered on 10/30/18 17:26; Start 10/30/18 at 17:00 Fluconazole (Diflucan) 200 mg DAILY PO Last administered on 10/31/18 08:34; Start 10/31/18 at 09:00 Non-Formulary Medication (Fluconazole (Diflucan)) 1 tab DAILY PO ; Start at 09:00; Status UNV Hydralazine HCl (Apresoline) 50 mg TID PO Last administered on 10/31/18 08:35; Start 10/30/18 at 21:00 Insulin Human Lispro (HumaLOG) 6 units TIDWMEALS SQ Last administered on 08:48; Start 10/30/18 at 17:00 Insulin Glargine (Lantus) 40 units QHS SQ Last administered on 10/30/18 21:23; Start 10/30/18 at 21:00 Mycophenolate Sodium (Myfortic) 180 mg BID PO Last administered on 10/31/18 08: 35; Start 10/30/18 at 21:00 Tacrolimus (Prograf) 0.5 mg QHS PO Last administered on 10/30/18 21:10; Start 10/30/18 at 21:00 Cefazolin Sodium 1 gm/Dextrose 50 ml @ 100 mls/hr Q8HRS IV Last administered on 10/31/18 06:21; Start 10/30/18 at 22:00 Insulin Human Lispro (HumaLOG) 0-7 UNITS TIDWMEALS SQ Last administered on 08:49; Start 10/30/18 at 17:00 Dextrose (Dextrose 50%-Water Syringe) 12.5 gm PRN Q15MIN PRN IV SEE COMMENTS; Start 10/30/18 at 15:15 Heparin Sodium (Porcine) (Heparin Sodium) 5,000 unit Q12HR SQ Last administered on 10/31/18at 08:50; Start 10/30/18 at 21:00 Lorazepam (Ativan) 1 mg 1X ONCE IV Last administered on 10/30/18at 15:50; Start 10/30/18 at 15:30; Stop 10/30/18 at 15:54; Status DC Hydralazine HCl (Apresoline Inj) 10 mg PRN Q6HRS PRN IVP ELEVATED BP, SEE COMMENTS; Start 10/30/18 at 18:15 Active Scripts Active Diflucan (Fluconazole) 100 Mg Tablet 200 Mg PO DAILY Reported Hydralazine Hcl 50 Mg Tablet 1 Tab PO TID Guaifenesin 100 Mg/5 Ml Liquid 100 Mg PO Dulcolax (Bisacodyl) 5 Mg Tablet. 4 Tab PO DAILY Myfortic (Mycophenolate Sodium) 180 Mg Tablet. 180 Mg PO BID Diflucan (Fluconazole) 200 Mg Tablet 1 Tab PO DAILY Ferrous Sulfate 325 Mg Tablet 1 Tab PO DAILY Lortab 7.5-325 mg Tablet (Hydrocodone/Acetaminophen) 1 Each Tablet 1 Tab PO PRN Q4HRS PRN Lasix (Furosemide) 40 Mg Tablet 1 Tab PO DAILY Prograf (Tacrolimus) 1 Mg Capsule 0.5 Mg PO HS Levemir (Insulin Detemir) 100 Unit/1 Ml Vial 40 Unit SQ QHS Lisinopril 10 Mg Tablet 1 Tab PO DAILY Xanax (Alprazolam) 0.25 Mg Tablet 0.25 Mg PO PRN BID PRN Nephro-Stacey Tablet (Folic Acid/Vitamin B Comp W-C) 0.8 Mg Tablet 1 Tab PO DAILY Myfortic (Mycophenolate Sodium) 180 Mg Tablet. 180 Mg PO BID [meds reviewed] Coreg (Carvedilol) 6.25 Mg Tablet 12.5 Mg PO BIDWMEALS Atorvastatin Calcium 40 Mg Tablet 2 Tab PO QHS Prednisone 5 Mg Tablet 5 Mg PO DAILY Metoclopramide Hcl 5 Mg Tablet 5 Mg PO TIDAC Levetiracetam 500 Mg Tablet 500 Mg PO BID Novolog (Insulin Aspart) 100 Unit/1 Ml Cartridge 6 Unit SQ TIDWMEALS Aspirin 325 Mg Tablet 325 Mg PO DAILY Protonix (Pantoprazole Sodium) 40 Mg Tablet. 40 Mg PO DAILY Vitals/I & O Vital Sign - Last 24 Hours 10/30/18 10/30/18 10/30/18 10/30/18 11:06 12:55 13:16 14:16 Temp 98.7 98.7 Pulse 77 79 76 80 Resp 20 24 B/P (MAP) 138/89 (105) 197/77 (117) 194/76 (115) 150/101 (117) Pulse Ox 100 100 100 100 O2 Delivery Room Air Room Air Room Air Room Air 10/30/18 10/30/18 10/30/18 10/30/18 14:56 15:54 16:00 17:26 Temp 97.8 97.8 Pulse 78 76 74 74 Resp 20 20 18 B/P (MAP) 221/91 (134) 193/76 (115) 191/56 (101) 191/56 Pulse Ox 99 100 99 O2 Delivery Room Air Room Air Room Air 10/30/18 10/30/18 10/30/18 10/30/18 17:27 17:39 19:00 20:00 Temp 99.0 99.0 Pulse 74 76 Resp 18 B/P (MAP) 191/56 152/56 (88) Pulse Ox 96 O2 Delivery Room Air Room Air 10/30/18 10/30/18 10/31/18 10/31/18 21:11 23:00 03:00 07:00 Temp 98.7 98.0 98.2 98.7 98.0 98.2 Pulse 76 76 71 72 Resp 18 18 17 B/P (MAP) 152/56 138/65 (89) 115/57 (76) 155/55 (88) Pulse Ox 97 97 100 O2 Delivery Room Air 10/31/18 10/31/18 10/31/18 08:34 08:35 08:35 Pulse 72 72 72 B/P (MAP) 155/55 155/55 155/55 Intake and Output 10/30/18 10/30/18 10/31/18 15:00 23:00 07:00 Intake Total 50 ml 550 ml 120 ml Output Total 425 ml Balance 50 ml 550 ml -305 ml MICHELLE SPRINGER APRN Oct 31, 2018 09:59
[2018-10-31] MEDS ORDERED: IV NORMAL SALINE 1000ML BAG 1,000 ML IV SCH (10:00)
--- NOTE | 2018-10-31 10:31 | PDOC ---
Provider Note Provider Note Pt seen .H&P dictated.#[id number] AUGUSTO BRUNER MD Oct 31, 2018 10:30
[2018-10-31] MEDS: IV NORMAL SALINE 1000ML BAG 1,000 ML IV SCH ×2 (10:42→23:41)
[2018-10-31] MEDS: predniSONE 5 MG TABLET PO SCH (10:42)
[2018-10-31 11:00] VITALS: BP 124/50
--- NOTE | 2018-10-31 12:06 | PDOC2 ---
CONSULT Date of Consult Date of Consult DATE: 10/31/18 TIME: 11:48 Reason for Consult Reason for Consult: Renal Transplant Identification/Chief Complaint Chief Complaint Discoloration of toes Source Source: Chart review, Patient History of Present Illness Reason for Visit: Pt is a 63-year-old AAF who presents with discoloration of toes on both feet. She currently lives in a fpc facility. She denies any pain , denies any fevers or chills. She states she sees Dr. Quinn for renal transplant at [facility] and she is little upset as would have preferred to go to [facility] She is tearful and scared due to risk of KUSUM She denies any CP, SOB. No F/C. No urinary complaints . She reports compliance with Tx meds PMH significant for DM, HTN, Renal Tx, CAD s/p CABG , CKD , PAD . Past Medical History Cardiovascular: CAD, HTN, Hyperlipidemia Pulmonary: COPD, Pneumonia CENTRAL NERVOUS SYSTEM: CVA, Seizure Heme/Onc: Anemia NOS Musculoskeletal: Osteoarthritis Infectious disease: Other Renal/: Chronic renal insuff, Chronic renal failure, Other Endocrine: Diabetes Past Surgical History Past Surgical History: Appendectomy, CABG, Hysterectomy, Other Family History Family History: Diabetes, Heart Disease Social History ALCOHOL: none Drugs: None Lives: Assisted Domestic Violence: Neg Current Problem List Problem List Problems Medical Problems: (1) Anxiety Status: Acute (2) Dementia Status: Acute (3) Diabetic foot ulcers Status: Acute (4) Hyperglycemia Status: Acute (5) Uncontrolled diabetes mellitus Status: Acute Current Medications Current Medications Current Medications Cefazolin Sodium/ Dextrose 50 ml @ 100 mls/hr 1X ONCE IV Last administered on 10/30/18at 13:01; Start 10/30/18 at 13:00; Stop 10/30/18 at 13:29; Status DC Vancomycin HCl 250 ml @ 250 mls/hr 1X ONCE IV Last administered on 10/30/18at 14:53; Start 10/30/18 at 13:00; Stop 10/30/18 at 13:59; Status DC Alprazolam (Xanax) 0.25 mg PRN BID PRN PO ANXIETY / AGITATION Last administered on 10/31/18at 08:33; Start 10/30/18 at 15:15 Aspirin (Gurwinder Aspirin) 325 mg DAILY PO Last administered on 10/31/18at 08:35; Start 10/30/18 at 17:00 Atorvastatin Calcium (Lipitor) 80 mg QHS PO Last administered on 10/30/18 21:10 ; Start 10/30/18 at 21:00 Bisacodyl (Dulcolax Tab) 20 mg DAILY PO Last administered on 10/31/18 08:34; Start 10/31/18 at 09:00 Carvedilol (Coreg) 12.5 mg BIDWMEALS PO Last administered on 10/31/18 08:34; Start 10/30/18 at 17:00 Ferrous Sulfate (Feosol) 325 mg DAILY PO Last administered on 10/31/18 08:34; Start 10/30/18 at 17:00 Vitamin B Complex/ Vitamin C (Vicki-Stacey) 1 tab DAILY PO Last administered on 08:33; Start 10/30/18 at 17:00 Furosemide (Lasix) 40 mg DAILY PO Last administered on 10/31/18 08:35; Start at 17:00 Acetaminophen/ Hydrocodone Bitart (Lortab 7.5/325) 1 tab PRN Q4HRS PRN PO PAIN ; Start 10/30/18 at 15:15 Levetiracetam (Keppra) 500 mg BID PO Last administered on 10/31/18 08:34; Start 10/30/18 at 21:00 Lisinopril (Prinivil) 10 mg DAILY PO Last administered on 10/31/18 08:35; Start 10/30/18 at 17:00 Metoclopramide HCl (Reglan) 5 mg TIDAC PO Last administered on 10/31/18 08:35; Start 10/30/18 at 16:30 Pantoprazole Sodium (Protonix) 40 mg DAILY PO Last administered on 10/31/18 08: 35; Start 10/30/18 at 17:00 Prednisone (Prednisone) 5 mg DAILY PO Last administered on 10/31/18 10:42; Start 10/30/18 at 17:00 Fluconazole (Diflucan) 200 mg DAILY PO Last administered on 10/31/18 08:34; Start 10/31/18 at 09:00 Non-Formulary Medication (Fluconazole (Diflucan)) 1 tab DAILY PO ; Start at 09:00; Status UNV Hydralazine HCl (Apresoline) 50 mg TID PO Last administered on 10/31/18 08:35; Start 10/30/18 at 21:00 Insulin Human Lispro (HumaLOG) 6 units TIDWMEALS SQ Last administered on 08:48; Start 10/30/18 at 17:00 Insulin Glargine (Lantus) 40 units QHS SQ Last administered on 10/30/18 21:23; Start 10/30/18 at 21:00 Mycophenolate Sodium (Myfortic) 180 mg BID PO Last administered on 10/31/18 08: 35; Start 10/30/18 at 21:00 Tacrolimus (Prograf) 0.5 mg QHS PO Last administered on 10/30/18 21:10; Start 10/30/18 at 21:00 Cefazolin Sodium 1 gm/Dextrose 50 ml @ 100 mls/hr Q8HRS IV Last administered on 10/31/18 06:21; Start 10/30/18 at 22:00 Insulin Human Lispro (HumaLOG) 0-7 UNITS TIDWMEALS SQ Last administered on 08:49; Start 10/30/18 at 17:00 Dextrose (Dextrose 50%-Water Syringe) 12.5 gm PRN Q15MIN PRN IV SEE COMMENTS; Start 10/30/18 at 15:15 Heparin Sodium (Porcine) (Heparin Sodium) 5,000 unit Q12HR SQ Last administered on 10/31/18 08:50; Start 10/30/18 at 21:00 Lorazepam (Ativan) 1 mg 1X ONCE IV Last administered on 10/30/18at 15:50; Start 10/30/18 at 15:30; Stop 10/30/18 at 15:54; Status DC Hydralazine HCl (Apresoline Inj) 10 mg PRN Q6HRS PRN IVP ELEVATED BP, SEE COMMENTS; Start 10/30/18 at 18:15 Sodium Chloride 1,000 ml @ 80 mls/hr [id number] IV ; Start 10/31/18 at 10:00; Stop 10/31/18 at 11:09; Status DC Sodium Chloride 1,000 ml @ 100 mls/hr Q10H IV Last administered on 10/31/18at 10 :42; Start 10/31/18 at 11:00 Active Scripts Active Diflucan (Fluconazole) 100 Mg Tablet 200 Mg PO DAILY Reported Hydralazine Hcl 50 Mg Tablet 1 Tab PO TID Guaifenesin 100 Mg/5 Ml Liquid 100 Mg PO Dulcolax (Bisacodyl) 5 Mg Tablet. 4 Tab PO DAILY Myfortic (Mycophenolate Sodium) 180 Mg Tablet. 180 Mg PO BID Diflucan (Fluconazole) 200 Mg Tablet 1 Tab PO DAILY Ferrous Sulfate 325 Mg Tablet 1 Tab PO DAILY Lortab 7.5-325 mg Tablet (Hydrocodone/Acetaminophen) 1 Each Tablet 1 Tab PO PRN Q4HRS PRN Lasix (Furosemide) 40 Mg Tablet 1 Tab PO DAILY Prograf (Tacrolimus) 1 Mg Capsule 0.5 Mg PO HS Levemir (Insulin Detemir) 100 Unit/1 Ml Vial 40 Unit SQ QHS Lisinopril 10 Mg Tablet 1 Tab PO DAILY Xanax (Alprazolam) 0.25 Mg Tablet 0.25 Mg PO PRN BID PRN Nephro-Stacey Tablet (Folic Acid/Vitamin B Comp W-C) 0.8 Mg Tablet 1 Tab PO DAILY Myfortic (Mycophenolate Sodium) 180 Mg Tablet. 180 Mg PO BID [meds reviewed] Coreg (Carvedilol) 6.25 Mg Tablet 12.5 Mg PO BIDWMEALS Atorvastatin Calcium 40 Mg Tablet 2 Tab PO QHS Prednisone 5 Mg Tablet 5 Mg PO DAILY Metoclopramide Hcl 5 Mg Tablet 5 Mg PO TIDAC Levetiracetam 500 Mg Tablet 500 Mg PO BID Novolog (Insulin Aspart) 100 Unit/1 Ml Cartridge 6 Unit SQ TIDWMEALS Aspirin 325 Mg Tablet 325 Mg PO DAILY Protonix (Pantoprazole Sodium) 40 Mg Tablet. 40 Mg PO DAILY Allergies Allergies: Coded Allergies: I S O L A T I O N *CONTACT* (Verified Allergy, Unknown, 01/09/18) mrsa No Known Medication Allergies (Verified Allergy, Unknown, 01/09/18) ROS Review of System As per HPI Physical Exam Physical Exam GENERAL: NAD, sitting up in bed HEENT- OM moist NECK: Supple CV: RRR LUNGS: CTA ABDOMEN: Obese, soft, No Tenderness over Renal Transplant, No bruit EXTREMITIES: left forearm AV shunt with a palpable thrill. Gu No vences Skin No rash Neuro- AXOX3 Vital Signs Vital Signs Date Time Temp Pulse Resp B/P (MAP) Pulse Ox O2 Delivery O2 Flow Rate FiO2 10/31/18 08:35 72 155/55 10/31/18 07:00 98.2 17 100 Room Air 98.2 Assessment & Plan Renal Transplant- Follows with Dr. Quinn at [facility] [place] On Cellcept and Tacrolimus, continue home dose CKD stage 3- Stable, baseline Cr 1.4-1.7 Intermittent Marce Bilateral toe gangrene. Possible angiogram as per vascular Discussed risk of KUSUM with patient KUSUM Prophylaxis with iodinated contrast IV NS (Carlos RN) , Hold Lasix DM - a sper primary HTN- Antihypertensive Anemia- Hb stable Discussed A/P with Pt and RN at bedside Labs Labs Laboratory Tests Test 10/30/18 11:34 10/30/18 14:20 10/30/18 16:16 10/30/18 21:09 White Blood Count 10.9 x10^3/uL (4.0-11.0) Red Blood Count 3.96 x10^6/uL (3.50-5.40) Hemoglobin 10.1 g/dL (12.0-15.5) Hematocrit 32.2 % (36.0-47.0) Mean Corpuscular Volume 81 fL (79-100) Mean Corpuscular Hemoglobin 26 pg (25-35) Mean Corpuscular Hemoglobin Concent 31 g/dL (31-37) Red Cell Distribution Width 16.0 % (11.5-14.5) Platelet Count 260 x10^3/uL (140-400) Neutrophils (%) (Auto) 82 % (31-73) Lymphocytes (%) (Auto) 8 % (24-48) Monocytes (%) (Auto) 9 % (0-9) Eosinophils (%) (Auto) 1 % (0-3) Basophils (%) (Auto) 0 % (0-3) Neutrophils # (Auto) 8.9 x10^3uL (1.8-7.7) Lymphocytes # (Auto) 0.8 x10^3/uL (1.0-4.8) Monocytes # (Auto) 1.0 x10^3/uL (0.0-1.1) Eosinophils # (Auto) 0.1 x10^3/uL (0.0-0.7) Basophils # (Auto) 0.0 x10^3/uL (0.0-0.2) Sodium Level 142 mmol/L (136-145) Potassium Level 4.7 mmol/L (3.5-5.1) Chloride Level 105 mmol/L (98-107) Carbon Dioxide Level 27 mmol/L (21-32) Anion Gap 10 (6-14) Blood Urea Nitrogen 27 mg/dL (7-20) Creatinine 1.3 mg/dL (0.6-1.0) Estimated GFR (Cockcroft-Gault) 49.7 BUN/Creatinine Ratio 21 (6-20) Glucose Level 251 mg/dL (70-99) Lactic Acid Level 1.2 mmol/L (0.4-2.0) Calcium Level 10.2 mg/dL (8.5-10.1) Total Bilirubin 0.4 mg/dL (0.2-1.0) Aspartate Amino Transf (AST/SGOT) 13 U/L (15-37) Alanine Aminotransferase (ALT/SGPT) 24 U/L (14-59) Alkaline Phosphatase 71 U/L (46-116) Total Protein 7.0 g/dL (6.4-8.2) Albumin 2.8 g/dL (3.4-5.0) Albumin/Globulin Ratio 0.7 (1.0-1.7) Urine Collection Type Void Urine Color Yellow Urine Clarity Cloudy Urine pH 6.0 Urine Specific [place] 1.020 Urine Protein 100 mg/dL (NEG-TRACE) Urine Glucose (UA) 100 mg/dL (NEG) Urine Ketones (Stick) Negative mg/dL (NEG) Urine Blood Negative (NEG) Urine Nitrite Negative (NEG) Urine Bilirubin Negative (NEG) Urine Urobilinogen Dipstick 0.2 mg/dL (0.2 mg/dL) Urine Leukocyte Esterase Negative (NEG) Urine RBC Occ /HPF (0-2) Urine WBC 1-4 /HPF (0-4) Urine Squamous Epithelial Cells Few /LPF Urine Bacteria 0 /HPF (0-FEW) Glucose (Fingerstick) 276 mg/dL (70-99) 222 mg/dL (70-99) Test 10/31/18 06:20 10/31/18 07:29 White Blood Count 9.3 x10^3/uL (4.0-11.0) Red Blood Count 3.88 x10^6/uL (3.50-5.40) Hemoglobin 9.9 g/dL (12.0-15.5) Hematocrit 31.4 % (36.0-47.0) Mean Corpuscular Volume 81 fL (79-100) Mean Corpuscular Hemoglobin 25 pg (25-35) Mean Corpuscular Hemoglobin Concent 32 g/dL (31-37) Red Cell Distribution Width 15.8 % (11.5-14.5) Platelet Count 272 x10^3/uL (140-400) Neutrophils (%) (Auto) 74 % (31-73) Lymphocytes (%) (Auto) 15 % (24-48) Monocytes (%) (Auto) 10 % (0-9) Eosinophils (%) (Auto) 2 % (0-3) Basophils (%) (Auto) 0 % (0-3) Neutrophils # (Auto) 6.9 x10^3uL (1.8-7.7) Lymphocytes # (Auto) 1.4 x10^3/uL (1.0-4.8) Monocytes # (Auto) 0.9 x10^3/uL (0.0-1.1) Eosinophils # (Auto) 0.1 x10^3/uL (0.0-0.7) Basophils # (Auto) 0.0 x10^3/uL (0.0-0.2) Sodium Level 141 mmol/L (136-145) Potassium Level 4.3 mmol/L (3.5-5.1) Chloride Level 105 mmol/L (98-107) Carbon Dioxide Level 27 mmol/L (21-32) Anion Gap 9 (6-14) Blood Urea Nitrogen 28 mg/dL (7-20) Creatinine 1.6 mg/dL (0.6-1.0) Estimated GFR (Cockcroft-Gault) 39.1 Glucose Level 235 mg/dL (70-99) Calcium Level 10.2 mg/dL (8.5-10.1) Glucose (Fingerstick) 194 mg/dL (70-99) Laboratory Tests Test 10/30/18 14:20 10/30/18 16:16 10/30/18 21:10/31/18 06:20 Urine Collection Type Void Urine Color Yellow Urine Clarity Cloudy Urine pH 6.0 Urine Specific [place] 1.020 Urine Protein 100 mg/dL (NEG-TRACE) Urine Glucose (UA) 100 mg/dL (NEG) Urine Ketones (Stick) Negative mg/dL (NEG) Urine Blood Negative (NEG) Urine Nitrite Negative (NEG) Urine Bilirubin Negative (NEG) Urine Urobilinogen Dipstick 0.2 mg/dL (0.2 mg/dL) Urine Leukocyte Esterase Negative (NEG) Urine RBC Occ /HPF (0-2) Urine WBC 1-4 /HPF (0-4) Urine Squamous Epithelial Cells Few /LPF Urine Bacteria 0 /HPF (0-FEW) Glucose (Fingerstick) 276 mg/dL (70-99) 222 mg/dL (70-99) White Blood Count 9.3 x10^3/uL (4.0-11.0) Red Blood Count 3.88 x10^6/uL (3.50-5.40) Hemoglobin 9.9 g/dL (12.0-15.5) Hematocrit 31.4 % (36.0-47.0) Mean Corpuscular Volume 81 fL (79-100) Mean Corpuscular Hemoglobin 25 pg (25-35) Mean Corpuscular Hemoglobin Concent 32 g/dL (31-37) Red Cell Distribution Width 15.8 % (11.5-14.5) Platelet Count 272 x10^3/uL (140-400) Neutrophils (%) (Auto) 74 % (31-73) Lymphocytes (%) (Auto) 15 % (24-48) Monocytes (%) (Auto) 10 % (0-9) Eosinophils (%) (Auto) 2 % (0-3) Basophils (%) (Auto) 0 % (0-3) Neutrophils # (Auto) 6.9 x10^3uL (1.8-7.7) Lymphocytes # (Auto) 1.4 x10^3/uL (1.0-4.8) Monocytes # (Auto) 0.9 x10^3/uL (0.0-1.1) Eosinophils # (Auto) 0.1 x10^3/uL (0.0-0.7) Basophils # (Auto) 0.0 x10^3/uL (0.0-0.2) Sodium Level 141 mmol/L (136-145) Potassium Level 4.3 mmol/L (3.5-5.1) Chloride Level 105 mmol/L (98-107) Carbon Dioxide Level 27 mmol/L (21-32) Anion Gap 9 (6-14) Blood Urea Nitrogen 28 mg/dL (7-20) Creatinine 1.6 mg/dL (0.6-1.0) Estimated GFR (Cockcroft-Gault) 39.1 Glucose Level 235 mg/dL (70-99) Calcium Level 10.2 mg/dL (8.5-10.1) Test 10/31/18 07:29 Glucose (Fingerstick) 194 mg/dL (70-99) Review All relevant outside records, renal labs, imaging studies, telemetry/EKG's were reviewed. Images Images Duplex LE-- 1. Moderate scattered atherosclerotic plaquing bilaterally. 2. Doppler findings suggesting moderate stenosis in the distal right superficial femoral artery. 3. Nonvisualization of the peroneal arteries in both lower legs. 4. Mild to moderate degradation of the distal Doppler waveforms, right greater the left. CASS HUITRON MD Oct 31, 2018 12:06
--- NOTE | 2018-10-31 13:28 | RAD ---
EXAM: CT Chest without IV contrast CLINICAL HISTORY: LUNG NODULE COMPARISON: 12/19/2017 TECHNIQUE: CT of the chest without intravenous contrast. Axial, coronal and sagittal reformatted images were generated. ---PQRS compliance statement - One or more of the following individualized dose reduction techniques were utilized for this study: 1. Automated exposure control 2. Adjustment of the mA and/or kV according to patient size 3. Use of iterative reconstruction technique--- FINDINGS: Lack of intravenous contrast limits evaluation of solid organs, vasculature, and lymph nodes. Chest: The heart is not enlarged. No pericardial effusion. Coronary artery calcifications are seen. Evaluation for mediastinal and hilar lymphadenopathy is limited on this noncontrast exam. Within these constraints no mediastinal or hilar lymphadenopathy by size criteria. No axillary lymphadenopathy. No pleural effusion or pneumothorax. Right apical pleural/parenchymal scarring/thickening is seen. Multiple bilateral lung nodules are seen. A posterior right upper lobe pleural-based lung nodule measures 2 x 1.1 cm, previously 1.9 x 1.2 cm, essentially stable. A pleural-based right lower lobe lung nodule (image 38) measures 1 cm, previously 1.1 cm, stable. A 6 mm and 7 mm left lower lobe pleural-based lung nodules are stable. Several additional bilateral smaller lung nodules are also stable. Visualized Upper abdomen: Punctate right upper pole nonobstructing renal calculus is seen. Atherosclerotic vascular calcifications are seen. Visualized upper abdomen is otherwise grossly unremarkable. Bones: Changes of median sternotomy, otherwise osseous structures are grossly unremarkable. IMPRESSION: 1. Multiple bilateral lung nodules are stable to 12/19/2017. Recommend continued follow-up to ensure two-year stability. Electronically signed by: Chandler Amezcua MD (10/31/2018 1:25 PM) [facility]
--- NOTE | 2018-10-31 13:56 | PDOC ---
Infectious Disease Note Vital Signs: Vital Signs Vital Signs Date Time Temp Pulse Resp B/P (MAP) Pulse Ox O2 Delivery O2 Flow Rate FiO2 10/31/18 08:35 72 155/55 10/31/18 07:00 98.2 17 100 Room Air 98.2 Medications: Inpatient Meds: Current Medications Medications (Trade) Dose Ordered Sig/Te Start Time Stop Time Status Last Admin Dose Admin Acetaminophen/ Hydrocodone Bitart (Lortab 7.5/325) 1 tab PRN Q4HRS PRN 10/30/18 15:15 Alprazolam (Xanax) 0.25 mg PRN BID PRN 10/30/18 15:15 10/31/18 08:33 0.25 MG Aspirin (Gurwinder Aspirin) 325 mg DAILY 10/30/18 17:00 10/31/18 08:35 325 MG Atorvastatin Calcium (Lipitor) 80 mg QHS 10/30/18 21:00 10/30/18 21:10 80 MG Bisacodyl (Dulcolax Tab) 20 mg DAILY 10/31/18 09:00 10/31/18 08:34 20 MG Carvedilol (Coreg) 12.5 mg BIDWMEALS 10/30/18 17:00 10/31/18 08:34 12.5 MG Cefazolin Sodium 1 gm/Dextrose 50 ml @ 100 mls/hr Q8HRS 10/30/18 22:00 10/31/18 06:21 100 MLS/HR Cefazolin Sodium/ Dextrose 50 ml @ 100 mls/hr 1X ONCE 10/30/18 13:00 10/30/18 13:29 DC 10/30/18 13:01 100 MLS/HR Dextrose (Dextrose 50%-Water Syringe) 12.5 gm PRN Q15MIN PRN 10/30/18 15:15 Ferrous Sulfate (Feosol) 325 mg DAILY 10/30/18 17:00 10/31/18 08:34 325 MG Fluconazole (Diflucan) 200 mg DAILY 10/31/18 09:00 10/31/18 08:34 200 MG Furosemide (Lasix) 40 mg DAILY 10/30/18 17:00 10/31/18 08:35 40 MG Heparin Sodium (Porcine) (Heparin Sodium) 5,000 unit Q12HR 10/30/18 21:00 10/31/18 08:50 5,000 UNIT Hydralazine HCl (Apresoline Inj) 10 mg PRN Q6HRS PRN 10/30/18 18:15 Hydralazine HCl (Apresoline) 50 mg TID 10/30/18 21:00 10/31/18 08:35 50 MG Insulin Glargine (Lantus) 40 units QHS 10/30/18 21:00 10/30/18 21:23 40 UNITS Insulin Human Lispro (HumaLOG) 0-7 UNITS TIDWMEALS 10/30/18 17:00 10/31/18 08:49 3 UNITS Lactobacillus Rhamnosus (Culturelle) 1 cap BID 10/31/18 21:00 Levetiracetam (Keppra) 500 mg BID 10/30/18 21:00 10/31/18 08:34 500 MG Lisinopril (Prinivil) 10 mg DAILY 10/30/18 17:00 10/31/18 08:35 10 MG Lorazepam (Ativan) 1 mg 1X ONCE 10/30/18 15:30 10/30/18 15:54 DC 10/30/18 15:50 1 MG Metoclopramide HCl (Reglan) 5 mg TIDAC 10/30/18 16:30 10/31/18 08:35 5 MG Mycophenolate Sodium (Myfortic) 180 mg BID 10/30/18 21:00 10/31/18 08:35 180 MG Non-Formulary Medication (Fluconazole (Diflucan)) 1 tab DAILY 10/31/18 09:00 UNV Pantoprazole Sodium (Protonix) 40 mg DAILY 10/30/18 17:00 10/31/18 08:35 40 MG Prednisone (Prednisone) 5 mg DAILY 10/30/18 17:00 10/31/18 10:42 5 MG Sodium Chloride 1,000 ml @ 100 mls/hr Q10H 10/31/18 11:00 10/31/18 10:42 100 MLS/HR Tacrolimus (Prograf) 0.5 mg QHS 10/30/18 21:00 10/30/18 21:10 0.5 MG Vancomycin HCl 250 ml @ 250 mls/hr 1X ONCE 10/30/18 13:00 10/30/18 13:59 DC 10/30/18 14:53 250 MLS/HR Vitamin B Complex/ Vitamin C (Vicki-Stacey) 1 tab DAILY 10/30/18 17:00 10/31/18 08:33 1 TAB Labs: Lab Laboratory Tests Test 10/30/18 14:20 10/30/18 16:16 10/30/18 21:09 10/31/18 06:20 Urine Collection Type Void Urine Color Yellow Urine Clarity Cloudy Urine pH 6.0 Urine Specific [place] 1.020 Urine Protein 100 mg/dL (NEG-TRACE) Urine Glucose (UA) 100 mg/dL (NEG) Urine Ketones (Stick) Negative mg/dL (NEG) Urine Blood Negative (NEG) Urine Nitrite Negative (NEG) Urine Bilirubin Negative (NEG) Urine Urobilinogen Dipstick 0.2 mg/dL (0.2 mg/dL) Urine Leukocyte Esterase Negative (NEG) Urine RBC Occ /HPF (0-2) Urine WBC 1-4 /HPF (0-4) Urine Squamous Epithelial Cells Few /LPF Urine Bacteria 0 /HPF (0-FEW) Glucose (Fingerstick) 276 mg/dL (70-99) 222 mg/dL (70-99) White Blood Count 9.3 x10^3/uL (4.0-11.0) Red Blood Count 3.88 x10^6/uL (3.50-5.40) Hemoglobin 9.9 g/dL (12.0-15.5) Hematocrit 31.4 % (36.0-47.0) Mean Corpuscular Volume 81 fL (79-100) Mean Corpuscular Hemoglobin 25 pg (25-35) Mean Corpuscular Hemoglobin Concent 32 g/dL (31-37) Red Cell Distribution Width 15.8 % (11.5-14.5) Platelet Count 272 x10^3/uL (140-400) Neutrophils (%) (Auto) 74 % (31-73) Lymphocytes (%) (Auto) 15 % (24-48) Monocytes (%) (Auto) 10 % (0-9) Eosinophils (%) (Auto) 2 % (0-3) Basophils (%) (Auto) 0 % (0-3) Neutrophils # (Auto) 6.9 x10^3uL (1.8-7.7) Lymphocytes # (Auto) 1.4 x10^3/uL (1.0-4.8) Monocytes # (Auto) 0.9 x10^3/uL (0.0-1.1) Eosinophils # (Auto) 0.1 x10^3/uL (0.0-0.7) Basophils # (Auto) 0.0 x10^3/uL (0.0-0.2) Sodium Level 141 mmol/L (136-145) Potassium Level 4.3 mmol/L (3.5-5.1) Chloride Level 105 mmol/L (98-107) Carbon Dioxide Level 27 mmol/L (21-32) Anion Gap 9 (6-14) Blood Urea Nitrogen 28 mg/dL (7-20) Creatinine 1.6 mg/dL (0.6-1.0) Estimated GFR (Cockcroft-Gault) 39.1 Glucose Level 235 mg/dL (70-99) Calcium Level 10.2 mg/dL (8.5-10.1) Test 10/31/18 07:29 10/31/18 11:30 Glucose (Fingerstick) 194 mg/dL (70-99) 134 mg/dL (70-99) Objective: Assessment: pt seen and dictated consult dictated Plan: Plan of Care Thank you D/W LINDY OCASIO MD Oct 31, 2018 13:56
--- NOTE | 2018-10-31 14:00 | NUR ---
SW following. Discussed with RN, pt is from [facility] (ph: [phone], fax: [phone]). SW to fax updates. Pt's daughter Stacia is DPOA. SW will continue to follow.
[2018-10-31 15:06] VITALS: BP 125/45
[2018-10-31] MEDS: PIPERACILLIN/TAZOBACTAM 2.25 GM in IV NORMAL SALINE 50ML 50 ML IV SCH ×3 (15:47→23:41)
[2018-10-31] MEDS: DAPTOmycin (GENERIC) IVPB 500 MG in IV NORMAL SALINE 50ML 50 ML IV SCH (15:47)
[2018-10-31] MEDS: LINEZOLID 600 MG TABLET PO SCH ×2 (15:47→20:48)
[2018-10-31] MEDS: MULTIVITAMIN with MINERAL TABLET. PO SCH (15:48)
--- NOTE | 2018-10-31 16:15 | EKG ---
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
--- NOTE | 2018-10-31 17:56 | HP ---
ADMIT DATE: 10/30/2018 LOCATION: 582. REASON FOR ADMISSION TO THE HOSPITAL: Bilateral toe gangrene with some infection of the toes. HISTORY OF PRESENT ILLNESS: The patient is a 63-year-old female with history of diabetes, insulin-dependent; peripheral vascular disease. She also has a history of kidney transplant, immunosuppression. She also has a history of disseminated cryptococcal disease diagnosed in 2016. She is at the [facility] and she has developed necrotic area in the toes, both the right and left big and second toes and was sent to the Emergency Room. She is in the [facility] and the patient had no palpable pulse. Doppler shows decreased pulses. The patient was admitted to the hospital. Vascular was consulted and started on broad spectrum antibiotics. PAST MEDICAL HISTORY: History of diabetes, coronary artery disease, congestive heart failure, kidney transplant, hypertension, hyperlipidemia, end-stage renal disease, peripheral vascular disease. PAST SURGICAL HISTORY: Renal transplant 2012, bypass 2001, hysterectomy 1980, cataract, AV fistula, cardiac catheterization, no major blockages; colon polyps in 2012. MEDICATIONS: Aspirin 325 daily, clonidine 0.2 three times a day, Coreg 12.5 twice a day, Diflucan 200 mg twice a day, hydrocodone q. 6, iron, Lasix 40 mg daily, Levemir 40 units at bedtime, Keppra for seizures 500 mg twice a day, Myfortic 180 mg twice a day, Nephro-Stacey 1 daily, NovoLog 17 units 3 times daily, prednisone 5 mg daily, Prograf 0.5 mg daily, Protonix 40 mg daily, Reglan 5 mg 3 times a day, Zoloft 25 daily, tacrolimus 1 mg daily, vitamin D 5000 daily. PERSONAL HISTORY: No history of smoking, alcohol, drug abuse. SOCIAL HISTORY: Lives at [facility]. FAMILY HISTORY: Positive for diabetes, kidney problems. REVIEW OF SYMPTOMS: CARDIOVASCULAR: No chest pain. GASTROINTESTINAL: No nausea or vomiting. EXTREMITIES: Complains of just toe ulcers and pain. PHYSICAL EXAMINATION: GENERAL: The patient looks older than her age. VITAL SIGNS: Temperature 97, pulse 70, respirations 14, blood pressure 125/71, 95% on room air. HEENT: Head is atraumatic. Pupils equal. Oral cavity, no teeth. NECK: Supple. Thyroid not enlarged. JVD not elevated. RESPIRATORY: Symmetrical, scar of heart surgery. CARDIOVASCULAR: S1, S2. LUNGS: Clear. ABDOMEN: Soft. Scar of kidney transplant, soft, no mass palpable. EXTERNAL GENITALIA: No Mclaughlin. RECTAL: Deferred. EXTREMITIES: The patient has a scar in the right thigh, which is from vein stripping done for bypass surgery of the heart. The patient has no palpable pulses at the ankle. Has a right big and second toe dry and left big toe, second and third toe dry with gangrenous changes. NEUROLOGIC: Moving all extremities. No focal deficits noted. LABORATORY DATA: Shows a white count of 10, hemoglobin 10, platelets 260. Electrolytes show sodium 140, potassium 4.1, chloride 105, bicarbonate 27, BUN 27, creatinine 1.3, glucose 251. LFTs were normal. Urine was negative for infection, had an x-ray of the foot, negative for osteo. Chest x-ray shows nodule over the right lung 1.7 cm. Arterial Doppler shows nonvisualization of the peroneal arteries in both lower legs. FINAL IMPRESSION: 1. 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 2. Peripheral vascular disease, severe. 3. Insulin-dependent diabetes. 4. Chronic kidney disease, as a history of kidney transplant. 5. History of immunosuppression. 6. History of disseminated cryptococcal disease. 7. History of seizures. 8. History of previous stroke. 9. Heart Bypass surgery. 10. Chronic systolic heart failure, ejection fraction around 40. PLAN: At this time, admit to hospital, vascular consult, had a Doppler not much blood flow, may need an arteriogram, need to hydrate the patient, Renal consult to prevent contrast-induced kidney problems especially she has a kidney transplant, will ask Renal consult and also IV antibiotics, wound culture and further recommendations to follow. The patient may end up amputating couple of toes. AUGUSTO BRUNER MD DR: DENISE/jeanie JOB#: [id number] / [id number] FERNANDO
[2018-10-31 19:00] VITALS: BP 120/50
[2018-10-31] MEDS ORDERED: LOPERAMIDE 2 MG CAPSULE PO PRN (19:00)
[2018-10-31] MEDS: TACROLIMUS 0.5 MG CAPSULE PO SCH (20:48)
[2018-10-31] MEDS: LACTOBACILLUS RHAMNOSUS GG 1 CAPSULE. PO SCH (20:48)
[2018-10-31] MEDS: ATORVASTATIN CALCIUM 40 MG TABLET. PO SCH (20:48)
[2018-10-31] MEDS: INSULIN GLARGINE 300 UNITS/3 ML INSULN.PEN. SQ SCH (20:50)
[2018-10-31 23:00] VITALS: BP 154/45
--- NOTE | 2018-10-31 23:36 | CONS ---
DATE OF CONSULTATION: 10/31/2018 REFERRING PHYSICIAN: Dr. Moran. REASON FOR CONSULTATION: Antibiotic management. HISTORY OF PRESENT ILLNESS: A 63-year-old female who is a known patient of kidney transplant with history of disseminated cryptococcal disease, in 12/2015 treated with IV AmBisome and then fluconazole, was brought in by EMS because of concern of left toe infection. The patient has multiple wounds in both the feet. The patient has history of diabetes and peripheral vascular disease. The patient denies any fever, chills, nausea, vomiting, diarrhea, abdominal pain. She is tearful. She says she wants to go home. The patient states that she has had wounds in both the feet for a long time, though is not very clear and is unable to articulate properly. She was given 1 dose of IV vancomycin. Currently, is on cefazolin, also got one dose of Diflucan. She denies any headache, visual disturbances, sore throat, difficulty swallowing, symptoms, rash. PAST MEDICAL HISTORY: Coronary artery disease, congestive heart failure, diabetes mellitus, hypertension, hyperlipidemia, kidney transplant, coronary artery bypass grafting, hysterectomy, disseminated cryptococcal disease, GERD. PAST SURGICAL HISTORY: Renal transplant, left arm arteriovenous shunt, coronary artery bypass surgery, hysterectomy. CURRENT MEDICATIONS: Ancef. Had one dose of Diflucan, had one dose of vancomycin. Other medications include prednisone 5 mg, Keppra, hydralazine, insulin, pantoprazole, lisinopril, Lasix, vitamin B and C, iron sulfate, Coreg, aspirin, Reglan, Prograf, mycophenolate, hydralazine, atorvastatin. ALLERGIES: No known drug allergies. SOCIAL HISTORY: Lives at the [facility]. Denies smoking. Has one daughter. Not . FAMILY HISTORY: As per HPI. REVIEW OF SYSTEMS: Limited, but above, the patient is very cheerful. PHYSICAL EXAMINATION: VITAL SIGNS: Stable. Temperature 98.2, pulse 72, respiratory rate 17, blood pressure 155/55, oxygen saturation 100% on room air. GENERAL: Alert and oriented x 3 female, tearful, sitting at the edge of the bed, in no acute distress. Denies any SI or HI symptoms. HEENT: Normocephalic, atraumatic, anicteric. No thrush. Oral mucosa moist. NECK: Supple. No JVD. LUNGS: Clear bilaterally. No wheezing. HEART: S1, S2 with no gallops or murmurs. ABDOMEN: Soft, nontender, nondistended. No rebound, no guarding. Incision scar abdomen well healed. EXTREMITIES: Bilateral foot wounds intact. Pictures reviewed, which are in the chart. The patient has multiple wounds of the right great toe; left great toe; left first, second and third toe and right heel with some thick callus and eschar. There are some changes suggestive of peripheral arterial disease for both lower extremities anteriorly near the tibial rubio. No other draining wounds noted. CENTRAL NERVOUS SYSTEM: Alert and oriented x 3. Grossly nonfocal. PSYCHIATRIC: Cooperative, appropriate mood and affect. DERMATOLOGIC: Warm, dry. No generalized rash. MUSCULOSKELETAL: No joint swelling noted. LABORATORY DATA: WBC is 9.3, hemoglobin 9.9, hematocrit 31.4, platelets 272. Sodium 141, potassium 4.3, chloride 105, bicarbonate 27, BUN 28, creatinine 1.6, glucose 235. Lactate 1.2, calcium 10.2. UA shows negative leukocyte esterase, 1-4 wbc's. AST 13, ALT 24, alkaline phosphatase 71, total protein 7.0, albumin 2.8. Micro blood culture negative so far. IMAGING: Chest CT shows multiple bilateral nodules that are stable since 12/19/2017. Chest x-ray shows a 1.7 cm nodular density with midlung, no lobar consolidation. Duplex scan lower extremity shows moderate scattered atherosclerotic plaquing bilaterally. Doppler findings suggesting moderate stenosis in the distal right superficial femoral artery. Nonvisualization of the peroneal artery in both lower extremities, [id number]. Degradation of the distal Doppler waveform, right greater than the left. Foot x-ray shows no significant change involving the second metatarsal bone distally. No new bony destructive changes finding. Consider further imaging if osteomyelitis is a concern, this is for the left foot. IMPRESSION: 1. Bacteremia /4 GPC POA could be a contaminant 2. Bilateral toe gangrene with underlying Peripheral arterial disease. 3. Chronic kidney disease, status post renal transplant. 4. 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 5. Acute kidney injury with chronic kidney disease. 6. Hypertension. 7. Coronary artery disease. 8. Diabetes. RECOMMENDATIONS: 1. Discontinue Ancef. 2. Start the patient on empiric ceftriaxone. 3. Status post dose of IV vancomycin once. 4. We will restart fluconazole 200 mg p.o. daily. May need renal dosing as per renal functions.Check cryptococcal ag 5. Vascular Surgery is following and is planning for intervention. 6. Continue supportive care. 7. Wound care treatment. 8. Follow up cultures and lab in a.m. Thank you for involving us to participate in this patient's care. If you have any questions, do not hesitate to contact me. LINDY LANDON MD DR: EMMA/jeanie JOB#: [id number] / [id number] FERNANDO
[2018-11-01] VITALS (10 sets, daily range): BP systolic 100–185; BP diastolic 44–62
[2018-11-01] MEDS: PIPERACILLIN/TAZOBACTAM 2.25 GM in IV NORMAL SALINE 50ML 50 ML IV SCH ×3 (05:52→17:38)
[2018-11-01 07:14] LABS: CALCIUM 9.8 mg/dL (8.5-10.1); CREATININE 1.4 mg/dL (0.6-1.0); GFR 45.7; POTASSIUM 3.7 mmol/L (3.5-5.1)
[2018-11-01 07:16] LABS: CHOLESTEROL/HDL RATIO 2.6
[2018-11-01] MEDS: METOCLOPRAMIDE 5 MG TABLET. PO SCH ×3 (07:30→17:16)
[2018-11-01] MEDS: INSULIN LISPRO 300 UNITS/3 ML INSULN.PEN. SQ SCH ×6 (08:00→17:00)
[2018-11-01] MEDS: CARVEDILOL 6.25 MG TABLET. PO SCH ×2 (08:00→17:38)
[2018-11-01] MEDS: ASPIRIN 325 MG TABLET PO SCH (09:00)
[2018-11-01] MEDS: BISACODYL 5 MG TABLET.DR. PO SCH (09:00)
--- NOTE | 2018-11-01 10:03 | PDOC ---
Infectious Disease Note Subjective: Subjective pt feels better no complaints awaiting surgery later today no f/c/n/v/d/sob/headache ROS: ROS Negative except for above. Vital Signs: Vital Signs Vital Signs Date Time Temp Pulse Resp B/P (MAP) Pulse Ox O2 Delivery O2 Flow Rate FiO2 11/01/18 08:41 Room Air 11/01/18 07:00 97.7 73 18 157/58 (91) 96 97.7 Physical Exam: PHYSICAL EXAM GENERAL: Alert and oriented x 3 female, tearful, sitting at the edge of the bed, in no acute distress. Denies any SI or HI symptoms. HEENT: Normocephalic, atraumatic, anicteric. No thrush. Oral mucosa moist. NECK: Supple. No JVD. LUNGS: Clear bilaterally. No wheezing. HEART: S1, S2 with no gallops or murmurs. ABDOMEN: Soft, nontender, nondistended. No rebound, no guarding. Incision scar abdomen well healed. EXTREMITIES: Bilateral foot wounds intact. Pictures reviewed, which are in the chart. The patient has multiple wounds of the right great toe; left great toe; left first, second and third toe and right heel with some thick callus and eschar. There are some changes suggestive of peripheral arterial disease for both lower extremities anteriorly near the tibial rubio. No other draining wounds noted. CENTRAL NERVOUS SYSTEM: Alert and oriented x 3. Grossly nonfocal. PSYCHIATRIC: Cooperative, appropriate mood and affect. DERMATOLOGIC: Warm, dry. No generalized rash. MUSCULOSKELETAL: No joint swelling noted. Medications: Inpatient Meds: Current Medications Medications (Trade) Dose Ordered Sig/[facility] Start Time Stop Time Status Last Admin Dose Admin Acetaminophen/ Hydrocodone Bitart (Lortab 7.5/325) 1 tab PRN Q4HRS PRN 10/30/18 15:15 Alprazolam (Xanax) 0.25 mg PRN BID PRN 10/30/18 15:15 10/31/18 08:33 0.25 MG Aspirin (Gurwinder Aspirin) 325 mg DAILY 10/30/18 17:00 10/31/18 08:35 325 MG Atorvastatin Calcium (Lipitor) 80 mg QHS 10/30/18 21:00 10/31/18 20:48 80 MG Bisacodyl (Dulcolax Tab) 20 mg DAILY 10/31/18 09:00 10/31/18 08:34 20 MG Carvedilol (Coreg) 12.5 mg BIDWMEALS 10/30/18 17:00 10/31/18 17:27 12.5 MG Cefazolin Sodium 1 gm/Dextrose 50 ml @ 100 mls/hr Q8HRS 10/30/18 22:00 10/31/18 13:59 DC 10/31/18 06:21 100 MLS/HR Cefazolin Sodium/ Dextrose 50 ml @ 100 mls/hr 1X ONCE 10/30/18 13:00 10/30/18 13:29 DC 10/30/18 13:01 100 MLS/HR Daptomycin 500 mg/ Sodium Chloride 50 ml @ 100 mls/hr Q24H 10/31/18 15:00 10/31/18 15:47 100 MLS/HR Dextrose (Dextrose 50%-Water Syringe) 12.5 gm PRN Q15MIN PRN 10/30/18 15:15 Ferrous Sulfate (Feosol) 325 mg DAILY 10/30/18 17:00 10/31/18 08:34 325 MG Fluconazole (Diflucan) 200 mg DAILY 10/31/18 09:00 10/31/18 08:34 200 MG Furosemide (Lasix) 40 mg DAILY 10/30/18 17:00 10/31/18 08:35 40 MG Heparin Sodium (Porcine) (Heparin Sodium) 5,000 unit Q12HR 10/30/18 21:00 10/31/18 20:50 5,000 UNIT Hydralazine HCl (Apresoline Inj) 10 mg PRN Q6HRS PRN 10/30/18 18:15 Hydralazine HCl (Apresoline) 50 mg TID 10/30/18 21:00 10/31/18 20:49 50 MG Insulin Glargine (Lantus) 40 units QHS 10/30/18 21:00 10/31/18 20:50 40 UNITS Insulin Human Lispro (HumaLOG) 0-7 UNITS TIDWMEALS 10/30/18 17:00 10/31/18 17:31 4 UNITS Lactobacillus Rhamnosus (Culturelle) 1 cap BID 10/31/18 21:00 10/31/18 20:48 1 CAP Levetiracetam (Keppra) 500 mg BID 10/30/18 21:00 10/31/18 20:48 500 MG Linezolid (Zyvox) 600 mg BID 10/31/18 14:30 10/31/18 21:00 DC 10/31/18 20:48 600 MG Lisinopril (Prinivil) 10 mg DAILY 10/30/18 17:00 10/31/18 08:35 10 MG Loperamide HCl (Imodium) 2 mg PRN Q6HRS PRN 10/31/18 19:00 Lorazepam (Ativan) 1 mg 1X ONCE 10/30/18 15:30 10/30/18 15:54 DC 10/30/18 15:50 1 MG Metoclopramide HCl (Reglan) 5 mg TIDAC 10/30/18 16:30 10/31/18 15:47 5 MG Multivitamins (Thera M Plus) 1 tab DAILY 10/31/18 15:00 10/31/18 15:48 1 TAB Mycophenolate Sodium (Myfortic) 180 mg BID 10/30/18 21:00 10/31/18 20:48 180 MG Non-Formulary Medication (Fluconazole (Diflucan)) 1 tab DAILY 10/31/18 09:00 UNV Pantoprazole Sodium (Protonix) 40 mg DAILY 10/30/18 17:00 10/31/18 08:35 40 MG Piperacillin Sod/ Tazobactam Sod 2.25 gm/Sodium Chloride 50 ml @ 100 mls/hr Q6HRS 10/31/18 14:30 11/01/18 05:52 100 MLS/HR Prednisone (Prednisone) 5 mg DAILY 10/30/18 17:00 10/31/18 10:42 5 MG Sodium Chloride 1,000 ml @ 100 mls/hr Q10H 10/31/18 11:00 10/31/18 23:41 100 MLS/HR Tacrolimus (Prograf) 0.5 mg QHS 10/30/18 21:00 10/31/18 20:48 0.5 MG Vancomycin HCl 250 ml @ 250 mls/hr 1X ONCE 10/30/18 13:00 10/30/18 13:59 DC 10/30/18 14:53 250 MLS/HR Vitamin B Complex/ Vitamin C (Ivcki-Stacey) 1 tab DAILY 10/30/18 17:00 10/31/18 08:33 1 TAB Labs: Lab Laboratory Tests Test 10/31/18 11:30 10/31/18 16:32 10/31/18 19:44 11/01/18 05:53 Glucose (Fingerstick) 134 mg/dL (70-99) 214 mg/dL (70-99) 216 mg/dL (70-99) Sodium Level 145 mmol/L (136-145) Potassium Level 3.7 mmol/L (3.5-5.1) Chloride Level 108 mmol/L (98-107) Carbon Dioxide Level 26 mmol/L (21-32) Anion Gap 11 (6-14) Blood Urea Nitrogen 24 mg/dL (7-20) Creatinine 1.4 mg/dL (0.6-1.0) Estimated GFR (Cockcroft-Gault) 45.7 Glucose Level 120 mg/dL (70-99) Calcium Level 9.8 mg/dL (8.5-10.1) Triglycerides Level 136 mg/dL (0-150) Cholesterol Level 154 mg/dL (0-200) LDL Cholesterol, Calculated 68 mg/dL (0-100) VLDL Cholesterol, Calculated 27 mg/dL (0-40) Non-HDL Cholesterol Calculated 95 mg/dL (0-129) HDL Cholesterol 59 mg/dL (40-60) Cholesterol/HDL Ratio 2.6 Thyroid Stimulating Hormone (TSH) 0.745 uIU/mL (0.358-3.74) Test 11/01/18 07:36 Glucose (Fingerstick) 91 mg/dL (70-99) Objective: Assessment: 1. Bilateral toe gangrene. 2. Peripheral arterial disease. 3. Chronic kidney disease, status post renal transplant. 4. History of disseminated cryptococcal disease, 12/2016.Pt was on chronic suppressive fluconazole,though I did not see it on the list from the [place] 5. Acute kidney injury with chronic kidney disease. 6. Hypertension. 7. Coronary artery disease. 8. Diabetes. Plan: Plan of Care Cont empiric ceftriaxone. Status post dose of IV vancomycin once. cont fluconazole 200 mg p.o. daily. May need renal dosing as per renal functions. f/u cryptococcal ag Vascular Surgery is following and is planning for intervention. Continue supportive care. Wound care treatment. Follow up cultures and lab in LINDY Lacey MD Nov 01, 2018 10:03
--- NOTE | 2018-11-01 10:16 | PDOC ---
PROGRESS NOTES Subjective Subjective no new problems Objective Objective Vital Signs Date Time Temp Pulse Resp B/P (MAP) Pulse Ox O2 Delivery O2 Flow Rate FiO2 11/01/18 08:41 Room Air 11/01/18 07:00 97.7 73 18 157/58 (91) 96 97.7 Intake and Output 11/01/18 06:59 Intake Total 120 ml Balance 120 ml Intake Oral 120 ml # Voids 4 # Bowel Movements 14 Physical Exam Abdomen: Normal bowel sounds, Soft, Other (obese, healed midline scar) Heart: Regular rate, Normal S1, Normal S2 Extremities: Other General: Alert, Cooperative Lungs: Clear to auscultation MUSCULOSKELETAL: No swelling Neck: Supple Neuro: Normal speech Psych/Mental Status: Mood NL COMMENT art multiple toes gangrene dry Diagnosis Problem List Problems Medical Problems: (1) Anxiety Status: Acute (2) Dementia Status: Acute (3) Diabetic foot ulcers Status: Acute (4) Hyperglycemia Status: Acute (5) Uncontrolled diabetes mellitus Status: Acute Assessment Assessment Problems Medical Problems: (1) Anxiety Status: Acute (2) Dementia Status: Acute (3) Diabetic foot ulcers Status: Acute (4) Hyperglycemia Status: Acute (5) Uncontrolled diabetes mellitus Status: Acute FINAL IMPRESSION: 1. 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 2. Peripheral vascular disease, severe. 3. Insulin-dependent diabetes. 4. Chronic kidney disease, history of kidney transplant. 5. History of immunosuppression. 6. History of disseminated cryptococcal disease. 7. History of seizures. 8. History of previous stroke. 9. Bypass surgery.CABG 10. Chronic systolic heart failure, ejection fraction around 40. PLAN: Arteriogram today. doppler legs dec circulation below the knees. iv hydration . iv antibiotics. blood c/s 1 in 4 bottles positive . wound c/s pending appreciate vascular +ID and Renal consults. cr 1.4 today. At this time, admit to hospital, vascular consult, had a Doppler not much blood flow, may need an arteriogram, need to hydrate the patient, Renal consult to prevent contrast-induced kidney problems especially she has a kidney transplant, will ask Renal consult and also IV antibiotics, wound culture and further recommendations to follow. The patient may end up amputating couple of toes. Plan Plan of Care Problems Medical Problems: (1) Anxiety Status: Acute (2) Dementia Status: Acute (3) Diabetic foot ulcers Status: Acute (4) Hyperglycemia Status: Acute (5) Uncontrolled diabetes mellitus Status: Acute Comment Review of Relevant I have reviewed the following items warner (where applicable) has been applied. Labs Laboratory Tests Test 10/31/18 11:30 10/31/18 16:32 10/31/18 19:44 11/01/18 05:53 Glucose (Fingerstick) 134 mg/dL (70-99) 214 mg/dL (70-99) 216 mg/dL (70-99) Sodium Level 145 mmol/L (136-145) Potassium Level 3.7 mmol/L (3.5-5.1) Chloride Level 108 mmol/L (98-107) Carbon Dioxide Level 26 mmol/L (21-32) Anion Gap 11 (6-14) Blood Urea Nitrogen 24 mg/dL (7-20) Creatinine 1.4 mg/dL (0.6-1.0) Estimated GFR (Cockcroft-Gault) 45.7 Glucose Level 120 mg/dL (70-99) Calcium Level 9.8 mg/dL (8.5-10.1) Triglycerides Level 136 mg/dL (0-150) Cholesterol Level 154 mg/dL (0-200) LDL Cholesterol, Calculated 68 mg/dL (0-100) VLDL Cholesterol, Calculated 27 mg/dL (0-40) Non-HDL Cholesterol Calculated 95 mg/dL (0-129) HDL Cholesterol 59 mg/dL (40-60) Cholesterol/HDL Ratio 2.6 Thyroid Stimulating Hormone (TSH) 0.745 uIU/mL (0.358-3.74) Test 11/01/18 07:36 Glucose (Fingerstick) 91 mg/dL (70-99) Microbiology 10/30/18 Blood Culture - Final, Complete Medications Current Medications Daptomycin 500 mg/ Sodium Chloride 50 ml @ 100 mls/hr Q24H IV Last administered on 10/31/18at 15:47; Start 10/31/18 at 15:00 Lactobacillus Rhamnosus (Culturelle) 1 cap BID PO Last administered on at 20:48; Start 10/31/18 at 21:00 Linezolid (Zyvox) 600 mg BID PO Last administered on 10/31/18at 20:48; Start 10/31 at 14:30; Stop 10/31/18 at 21:00; Status DC Loperamide HCl (Imodium) 2 mg PRN Q6HRS PRN PO DIARRHEA; Start 10/31/18 at 19:00 Multivitamins (Thera M Plus) 1 tab DAILY PO Last administered on 10/31/18at 15:48 ; Start 10/31/18 at 15:00 Piperacillin Sod/ Tazobactam Sod 2.25 gm/Sodium Chloride 50 ml @ 100 mls/hr Q6HRS IV Last administered on 11/01/18at 05:52; Start 10/31/18 at 14:30 Sodium Chloride 1,000 ml @ 100 mls/hr Q10H IV Last administered on 10/31/18at 23 :41; Start 10/31/18 at 11:00 Vitals/I & O Vital Sign - Last 24 Hours 10/31/18 10/31/18 10/31/18 10/31/18 11:00 15:06 15:48 17:27 Temp 98.1 97.8 98.1 97.8 Pulse 68 72 72 72 Resp 16 14 B/P (MAP) 124/50 (74) 125/45 (71) 125/45 125/45 Pulse Ox 99 95 O2 Delivery Room Air Room Air 10/31/18 10/31/18 10/31/18 10/31/18 19:00 20:00 20:49 23:00 Temp 98.4 98.1 98.4 98.1 Pulse 83 72 70 Resp 18 18 B/P (MAP) 120/50 (73) 125/45 154/45 (81) Pulse Ox 99 100 O2 Delivery Room Air Room Air Room Air 11/01/18 11/01/18 11/01/18 03:00 07:00 08:41 Temp 98.2 97.7 98.2 97.7 Pulse 74 73 Resp 18 18 B/P (MAP) 160/51 (87) 157/58 (91) Pulse Ox 97 96 O2 Delivery Room Air Room Air Room Air Intake and Output 10/31/18 10/31/18 11/01/18 14:59 22:59 06:59 Intake Total 120 ml Balance 120 ml AUGUSTO BRUNER MD Nov 01, 2018 10:16
[2018-11-01] MEDS: IV NORMAL SALINE 1000ML BAG 1,000 ML IV SCH ×2 (10:23→17:00)
[2018-11-01] MEDS: DEXTROSE 50% 25 GM / 50ML DISP.SYRIN. IV PRN (13:11)
[2018-11-01] MEDS ORDERED: IODIXANOL 320 MG/ML 100 ML VIAL. ONE (13:17)
[2018-11-01] MEDS ORDERED: LIDOCAINE 1% Multi-Dose 20 ML VIAL. ONE (13:17)
--- NOTE | 2018-11-01 14:00 | NUR ---
YINA following. Discussed with RN, pt having a procedure today. Pt is from [facility]. YINA attempted to call pt's dtr/DPOAStacia (cell: [phone], work: [phone]) cellphone voicemail was full and the work number would not allow SW to leave voicemail, YINA was unable to get a live person at time of the call. SW will try again later. SW to fax updates to [facility]. RN notified.
--- NOTE | 2018-11-01 14:10 | PDOC ---
SUBJECTIVE ROS stable OBJECTIVE Vital Signs Vital Signs Date Time Temp Pulse Resp B/P (MAP) Pulse Ox O2 Delivery O2 Flow Rate FiO2 11/01/18 11:31 97.6 76 18 182/61 (101) 97 Room Air 97.6 I & 0 Intake and Output 11/01/18 06:59 Intake Total 120 ml Balance 120 ml Intake Oral 120 ml # Voids 4 # Bowel Movements 14 PHYSICAL EXAM Physical Exam GENERAL: NAD, HEENT- OM moist NECK: Supple CV: RRR LUNGS: CTA ABDOMEN: Obese, soft, No Tenderness over Renal Transplant, No bruit EXTREMITIES: left forearm AV shunt with a palpable thrill. Gu No vences Skin No rash Neuro- AXOX3 DIAGNOSIS/ASSESSMENT Assessment & Plan Renal Transplant- Follows with Dr. Quinn at [facility] On Cellcept and Tacrolimus, continue home dose CKD stage 3- Stable, baseline Cr 1.4-1.7 Intermittent Marce Bilateral toe gangrene. Possible angiogram as per vascular Discussed risk of KUSUM with patient KUSUM Prophylaxis with iodinated contrast IV NS (Carlos RN) , Hold Lasix DM - a sper primary HTN- Antihypertensive Anemia- Hb stable Discussed A/P with Pt and RN at bedside COMMENT/RELEVANT DATA Meds Current Medications Medications (Trade) Dose Ordered Sig/Te Start Time Stop Time Status Last Admin Dose Admin Acetaminophen/ Hydrocodone Bitart (Lortab 7.5/325) 1 tab PRN Q4HRS PRN 10/30/18 15:15 Alprazolam (Xanax) 0.25 mg PRN BID PRN 10/30/18 15:15 10/31/18 08:33 0.25 MG Aspirin (Gurwinder Aspirin) 325 mg DAILY 10/30/18 17:00 10/31/18 08:35 325 MG Atorvastatin Calcium (Lipitor) 80 mg QHS 10/30/18 21:00 10/31/18 20:48 80 MG Bisacodyl (Dulcolax Tab) 20 mg DAILY 10/31/18 09:00 10/31/18 08:34 20 MG Carvedilol (Coreg) 12.5 mg BIDWMEALS 10/30/18 17:00 10/31/18 17:27 12.5 MG Cefazolin Sodium 1 gm/Dextrose 50 ml @ 100 mls/hr Q8HRS 10/30/18 22:00 10/31/18 13:59 DC 10/31/18 06:21 100 MLS/HR Cefazolin Sodium/ Dextrose 50 ml @ 100 mls/hr 1X ONCE 10/30/18 13:00 10/30/18 13:29 DC 10/30/18 13:01 100 MLS/HR Daptomycin 500 mg/ Sodium Chloride 50 ml @ 100 mls/hr Q24H 10/31/18 15:00 10/31/18 15:47 100 MLS/HR Dextrose (Dextrose 50%-Water Syringe) 12.5 gm PRN Q15MIN PRN 10/30/18 15:15 11/01/18 13:11 12.5 GM Ferrous Sulfate (Feosol) 325 mg DAILY 10/30/18 17:00 10/31/18 08:34 325 MG Fluconazole (Diflucan) 200 mg DAILY 10/31/18 09:00 10/31/18 08:34 200 MG Furosemide (Lasix) 40 mg DAILY 10/30/18 17:00 10/31/18 08:35 40 MG Heparin Sodium (Porcine) (Heparin Sodium) 5,000 unit Q12HR 10/30/18 21:00 11/01/18 10:18 DC 10/31/18 20:50 5,000 UNIT Heparin Sodium/ Sodium Chloride 1,000 ml @ As Directed STK-MED ONCE 11/01/18 13:17 11/01/18 13:18 DC Hydralazine HCl (Apresoline Inj) 10 mg PRN Q6HRS PRN 10/30/18 18:15 Hydralazine HCl (Apresoline) 50 mg TID 10/30/18 21:00 10/31/18 20:49 50 MG Insulin Glargine (Lantus) 40 units QHS 10/30/18 21:00 10/31/18 20:50 40 UNITS Insulin Human Lispro (HumaLOG) 0-7 UNITS TIDWMEALS 10/30/18 17:00 10/31/18 17:31 4 UNITS Iodixanol (Visipaque 320) 100 ml STK-MED ONCE 11/01/18 13:17 11/01/18 13:18 DC Lactobacillus Rhamnosus (Culturelle) 1 cap BID 10/31/18 21:00 10/31/18 20:48 1 CAP Levetiracetam (Keppra) 500 mg BID 10/30/18 21:00 10/31/18 20:48 500 MG Lidocaine HCl (Lidocaine 1% 20ml Vial) 20 ml STK-MED ONCE 11/01/18 13:17 11/01/18 13:18 DC Linezolid (Zyvox) 600 mg BID 10/31/18 14:30 10/31/18 21:00 DC 10/31/18 20:48 600 MG Lisinopril (Prinivil) 10 mg DAILY 10/30/18 17:00 10/31/18 08:35 10 MG Loperamide HCl (Imodium) 2 mg PRN Q6HRS PRN 10/31/18 19:00 Lorazepam (Ativan) 1 mg 1X ONCE 10/30/18 15:30 10/30/18 15:54 DC 10/30/18 15:50 1 MG Metoclopramide HCl (Reglan) 5 mg TIDAC 10/30/18 16:30 10/31/18 15:47 5 MG Multivitamins (Thera M Plus) 1 tab DAILY 10/31/18 15:00 10/31/18 15:48 1 TAB Mycophenolate Sodium (Myfortic) 180 mg BID 10/30/18 21:00 10/31/18 20:48 180 MG Non-Formulary Medication (Fluconazole (Diflucan)) 1 tab DAILY 10/31/18 09:00 UNV Pantoprazole Sodium (Protonix) 40 mg DAILY 10/30/18 17:00 10/31/18 08:35 40 MG Piperacillin Sod/ Tazobactam Sod 2.25 gm/Sodium Chloride 50 ml @ 100 mls/hr Q6HRS 10/31/18 14:30 11/01/18 13:06 100 MLS/HR Prednisone (Prednisone) 5 mg DAILY 10/30/18 17:00 10/31/18 10:42 5 MG Sodium Chloride 1,000 ml @ 100 mls/hr Q10H 10/31/18 11:00 11/01/18 10:23 100 MLS/HR Tacrolimus (Prograf) 0.5 mg QHS 10/30/18 21:00 10/31/18 20:48 0.5 MG Vancomycin HCl 250 ml @ 250 mls/hr 1X ONCE 10/30/18 13:00 10/30/18 13:59 DC 10/30/18 14:53 250 MLS/HR Vitamin B Complex/ Vitamin C (Vicki-Stacey) 1 tab DAILY 10/30/18 17:00 10/31/18 08:33 1 TAB Lab Laboratory Tests Test 10/31/18 16:32 10/31/18 19:44 11/01/18 05:53 11/01/18 07:36 Glucose (Fingerstick) 214 mg/dL (70-99) 216 mg/dL (70-99) 91 mg/dL (70-99) Sodium Level 145 mmol/L (136-145) Potassium Level 3.7 mmol/L (3.5-5.1) Chloride Level 108 mmol/L (98-107) Carbon Dioxide Level 26 mmol/L (21-32) Anion Gap 11 (6-14) Blood Urea Nitrogen 24 mg/dL (7-20) Creatinine 1.4 mg/dL (0.6-1.0) Estimated GFR (Cockcroft-Gault) 45.7 Glucose Level 120 mg/dL (70-99) Calcium Level 9.8 mg/dL (8.5-10.1) Triglycerides Level 136 mg/dL (0-150) Cholesterol Level 154 mg/dL (0-200) LDL Cholesterol, Calculated 68 mg/dL (0-100) VLDL Cholesterol, Calculated 27 mg/dL (0-40) Non-HDL Cholesterol Calculated 95 mg/dL (0-129) HDL Cholesterol 59 mg/dL (40-60) Cholesterol/HDL Ratio 2.6 Thyroid Stimulating Hormone (TSH) 0.745 uIU/mL (0.358-3.74) Test 11/01/18 13:02 11/01/18 13:22 Glucose (Fingerstick) 53 mg/dL (70-99) 128 mg/dL (70-99) Results All relevant outside records, renal labs, imaging studies, telemetry/EKG's were reviewed. CASS HUITRON MD Nov 01, 2018 14:09
[2018-11-01] MEDS ORDERED: MIDAZOLAM HCL/PF 2 MG/2 ML VIAL. ONE (14:11)
[2018-11-01] MEDS ORDERED: fentaNYL PF VIAL 100 MCG/2 ML VIAL ONE (14:12)
[2018-11-01] MEDS ORDERED: fentaNYL PF VIAL 100 MCG/2 ML VIAL IV ONE (15:00)
[2018-11-01] MEDS ORDERED: CONTRAST GIVEN. MC PRN (15:00)
[2018-11-01] MEDS ORDERED: IODIXANOL 320 MG/ML 100 ML VIAL. IART ONE (15:00)
[2018-11-01] MEDS ORDERED: LIDOCAINE 1% Multi-Dose 20 ML VIAL. INJ ONE (15:00)
[2018-11-01] MEDS ORDERED: MIDAZOLAM HCL/PF 2 MG/2 ML VIAL. IV ONE (15:00)
--- NOTE | 2018-11-01 15:30 | NUR ---
Wound Care Attempted to see pt for wound care f/u today, pt is currently off unit for procedure, will f/u tomorrow.
--- NOTE | 2018-11-01 15:55 | PDOC ---
PROGRESS NOTES Subjective Subjective Patient was seen and examined prior to the procedure today, no changes to the H& P She is a very pleasant 63-year-old woman with left first and second toe ulcer/ infection and right great toe ulceration without infection. She has a history of renal transplant with a functioning renal transplant in the right pelvis. Her baseline creatinine is around 1.1.4, 1.4 today She has abnormal duplex lower extremities with concern for PAD and critical limb ischemia with the wound infection of the feet. Plan is for diagnostic angiography mostly with carbon dioxide and limited contrast with staged intervention. We discussed the risks, benefits, alternatives and she wishes to proceed. Objective Objective Vital Signs Date Time Temp Pulse Resp B/P (MAP) Pulse Ox O2 Delivery O2 Flow Rate FiO2 11/01/18 15:35 87 18 160/58 (92) 99 Room Air 11/01/18 15:14 2.0 11/01/18 11:31 97.6 97.6 Intake and Output 11/01/18 07:00 Intake Total 120 ml Balance 120 ml Intake Oral 120 ml # Voids 4 # Bowel Movements 14 Physical Exam Physical Exam Femoral pulses palpable bilaterally Left great toe with some purulent drainage right great toe with ulceration without infection Diagnosis DIAGNOSIS Atherosclerosis of [place] arteries of bilateral lower extremities with ulceration Assessment Assessment Problems Medical Problems: (1) Anxiety Status: Acute (2) Dementia Status: Acute (3) Diabetic foot ulcers Status: Acute (4) Hyperglycemia Status: Acute (5) Uncontrolled diabetes mellitus Status: Acute Plan Plan of Care Plan to proceed with right femoral access, and oxide angiography of the aorta iliacs and bilateral lower extremity runoff with limited contrast for the tibials We discussed the risks, benefits, alternatives and she wishes to proceed. Comment Review of Relevant I have reviewed the following items warner (where applicable) has been applied. Labs Laboratory Tests Test 10/30/18 16:16 10/30/18 17:10 10/30/18 21:09 10/31/18 06:20 Glucose (Fingerstick) 276 mg/dL (70-99) 222 mg/dL (70-99) Nasal Screen MRSA (PCR) Negative (Negative) White Blood Count 9.3 x10^3/uL (4.0-11.0) Red Blood Count 3.88 x10^6/uL (3.50-5.40) Hemoglobin 9.9 g/dL (12.0-15.5) Hematocrit 31.4 % (36.0-47.0) Mean Corpuscular Volume 81 fL (79-100) Mean Corpuscular Hemoglobin 25 pg (25-35) Mean Corpuscular Hemoglobin Concent 32 g/dL (31-37) Red Cell Distribution Width 15.8 % (11.5-14.5) Platelet Count 272 x10^3/uL (140-400) Neutrophils (%) (Auto) 74 % (31-73) Lymphocytes (%) (Auto) 15 % (24-48) Monocytes (%) (Auto) 10 % (0-9) Eosinophils (%) (Auto) 2 % (0-3) Basophils (%) (Auto) 0 % (0-3) Neutrophils # (Auto) 6.9 x10^3uL (1.8-7.7) Lymphocytes # (Auto) 1.4 x10^3/uL (1.0-4.8) Monocytes # (Auto) 0.9 x10^3/uL (0.0-1.1) Eosinophils # (Auto) 0.1 x10^3/uL (0.0-0.7) Basophils # (Auto) 0.0 x10^3/uL (0.0-0.2) Sodium Level 141 mmol/L (136-145) Potassium Level 4.3 mmol/L (3.5-5.1) Chloride Level 105 mmol/L (98-107) Carbon Dioxide Level 27 mmol/L (21-32) Anion Gap 9 (6-14) Blood Urea Nitrogen 28 mg/dL (7-20) Creatinine 1.6 mg/dL (0.6-1.0) Estimated GFR (Cockcroft-Gault) 39.1 Glucose Level 235 mg/dL (70-99) Calcium Level 10.2 mg/dL (8.5-10.1) Test 10/31/18 07:29 10/31/18 11:30 10/31/18 16:32 10/31/18 19:44 Glucose (Fingerstick) 194 mg/dL (70-99) 134 mg/dL (70-99) 214 mg/dL (70-99) 216 mg/dL (70-99) Test 11/01/18 05:53 11/01/18 07:36 11/01/18 13:02 11/01/18 13:22 Sodium Level 145 mmol/L (136-145) Potassium Level 3.7 mmol/L (3.5-5.1) Chloride Level 108 mmol/L (98-107) Carbon Dioxide Level 26 mmol/L (21-32) Anion Gap 11 (6-14) Blood Urea Nitrogen 24 mg/dL (7-20) Creatinine 1.4 mg/dL (0.6-1.0) Estimated GFR (Cockcroft-Gault) 45.7 Glucose Level 120 mg/dL (70-99) Calcium Level 9.8 mg/dL (8.5-10.1) Triglycerides Level 136 mg/dL (0-150) Cholesterol Level 154 mg/dL (0-200) LDL Cholesterol, Calculated 68 mg/dL (0-100) VLDL Cholesterol, Calculated 27 mg/dL (0-40) Non-HDL Cholesterol Calculated 95 mg/dL (0-129) HDL Cholesterol 59 mg/dL (40-60) Cholesterol/HDL Ratio 2.6 Thyroid Stimulating Hormone (TSH) 0.745 uIU/mL (0.358-3.74) Glucose (Fingerstick) 91 mg/dL (70-99) 53 mg/dL (70-99) 128 mg/dL (70-99) Laboratory Tests Test 10/31/18 16:32 10/31/18 19:44 11/01/18 05:53 11/01/18 07:36 Glucose (Fingerstick) 214 mg/dL (70-99) 216 mg/dL (70-99) 91 mg/dL (70-99) Sodium Level 145 mmol/L (136-145) Potassium Level 3.7 mmol/L (3.5-5.1) Chloride Level 108 mmol/L (98-107) Carbon Dioxide Level 26 mmol/L (21-32) Anion Gap 11 (6-14) Blood Urea Nitrogen 24 mg/dL (7-20) Creatinine 1.4 mg/dL (0.6-1.0) Estimated GFR (Cockcroft-Gault) 45.7 Glucose Level 120 mg/dL (70-99) Calcium Level 9.8 mg/dL (8.5-10.1) Triglycerides Level 136 mg/dL (0-150) Cholesterol Level 154 mg/dL (0-200) LDL Cholesterol, Calculated 68 mg/dL (0-100) VLDL Cholesterol, Calculated 27 mg/dL (0-40) Non-HDL Cholesterol Calculated 95 mg/dL (0-129) HDL Cholesterol 59 mg/dL (40-60) Cholesterol/HDL Ratio 2.6 Thyroid Stimulating Hormone (TSH) 0.745 uIU/mL (0.358-3.74) Test 11/01/18 13:02 11/01/18 13:22 Glucose (Fingerstick) 53 mg/dL (70-99) 128 mg/dL (70-99) Microbiology 10/30/18 Blood Culture - Final, Complete 10/31/18 Anaerobic/Aerobic Culture, Resulted Pending 10/31/18 Anaerobic Culture Result 1 (LYN), Resulted Pending 10/31/18 Aerobic Culture, Resulted Pending 10/31/18 Aerobic Culture Result 1 (LYN), Resulted Pending 10/31/18 Gram Stain - Final, Resulted 10/31/18 Gram Stain Result 1 (LYN) - Final, Resulted 10/31/18 Gram Stain Result 2 (LYN) - Final, Resulted Medications Current Medications Cefazolin Sodium/ Dextrose 50 ml @ 100 mls/hr 1X ONCE IV Last administered on 10/30/18 13:01; Start 10/30/18 at 13:00; Stop 10/30/18 at 13:29; Status DC Vancomycin HCl 250 ml @ 250 mls/hr 1X ONCE IV Last administered on 10/30/18at 14:53; Start 10/30/18 at 13:00; Stop 10/30/18 at 13:59; Status DC Alprazolam (Xanax) 0.25 mg PRN BID PRN PO ANXIETY / AGITATION Last administered on 10/31/18at 08:33; Start 10/30/18 at 15:15 Aspirin (Gurwinder Aspirin) 325 mg DAILY PO Last administered on 10/31/18at 08:35; Start 10/30/18 at 17:00 Atorvastatin Calcium (Lipitor) 80 mg QHS PO Last administered on 10/31/18at 20:48 ; Start 10/30/18 at 21:00 Bisacodyl (Dulcolax Tab) 20 mg DAILY PO Last administered on 10/31/18at 08:34; Start 10/31/18 at 09:00 Carvedilol (Coreg) 12.5 mg BIDWMEALS PO Last administered on 10/31/18 17:27; Start 10/30/18 at 17:00 Ferrous Sulfate (Feosol) 325 mg DAILY PO Last administered on 10/31/18 08:34; Start 10/30/18 at 17:00 Vitamin B Complex/ Vitamin C (Vicki-Stacey) 1 tab DAILY PO Last administered on 08:33; Start 10/30/18 at 17:00 Furosemide (Lasix) 40 mg DAILY PO Last administered on 10/31/18 08:35; Start at 17:00 Acetaminophen/ Hydrocodone Bitart (Lortab 7.5/325) 1 tab PRN Q4HRS PRN PO PAIN ; Start 10/30/18 at 15:15 Levetiracetam (Keppra) 500 mg BID PO Last administered on 10/31/18 20:48; Start 10/30/18 at 21:00 Lisinopril (Prinivil) 10 mg DAILY PO Last administered on 10/31/18 08:35; Start 10/30/18 at 17:00 Metoclopramide HCl (Reglan) 5 mg TIDAC PO Last administered on 10/31/18 15:47; Start 10/30/18 at 16:30 Pantoprazole Sodium (Protonix) 40 mg DAILY PO Last administered on 10/31/18 08: 35; Start 10/30/18 at 17:00 Prednisone (Prednisone) 5 mg DAILY PO Last administered on 10/31/18 10:42; Start 10/30/18 at 17:00 Fluconazole (Diflucan) 200 mg DAILY PO Last administered on 10/31/18 08:34; Start 10/31/18 at 09:00 Non-Formulary Medication (Fluconazole (Diflucan)) 1 tab DAILY PO ; Start at 09:00; Status UNV Hydralazine HCl (Apresoline) 50 mg TID PO Last administered on 10/31/18 20:49; Start 10/30/18 at 21:00 Insulin Human Lispro (HumaLOG) 6 units TIDWMEALS SQ Last administered on 17:29; Start 10/30/18 at 17:00 Insulin Glargine (Lantus) 40 units QHS SQ Last administered on 10/31/18 20:50; Start 10/30/18 at 21:00 Mycophenolate Sodium (Myfortic) 180 mg BID PO Last administered on 10/31/18 20: 48; Start 10/30/18 at 21:00 Tacrolimus (Prograf) 0.5 mg QHS PO Last administered on 10/31/18 20:48; Start 10/30/18 at 21:00 Cefazolin Sodium 1 gm/Dextrose 50 ml @ 100 mls/hr Q8HRS IV Last administered on 10/31/18 06:21; Start 10/30/18 at 22:00; Stop 10/31/18 at 13:59; Status DC Insulin Human Lispro (HumaLOG) 0-7 UNITS TIDWMEALS SQ Last administered on 17:31; Start 10/30/18 at 17:00 Dextrose (Dextrose 50%-Water Syringe) 12.5 gm PRN Q15MIN PRN IV SEE COMMENTS Last administered on 11/01/18 13:11; Start 10/30/18 at 15:15 Heparin Sodium (Porcine) (Heparin Sodium) 5,000 unit Q12HR SQ Last administered on 10/31/18 20:50; Start 10/30/18 at 21:00; Stop 11/01/18 at 10:18; Status DC Lorazepam (Ativan) 1 mg 1X ONCE IV Last administered on 10/30/18 15:50; Start 10/30/18 at 15:30; Stop 10/30/18 at 15:54; Status DC Hydralazine HCl (Apresoline Inj) 10 mg PRN Q6HRS PRN IVP ELEVATED BP, SEE COMMENTS; Start 10/30/18 at 18:15 Sodium Chloride 1,000 ml @ 80 mls/hr [id number] IV ; Start 10/31/18 at 10:00; Stop 10/31/18 at 11:09; Status DC Sodium Chloride 1,000 ml @ 100 mls/hr Q10H IV Last administered on 11/01/18 10 :23; Start 10/31/18 at 11:00 Lactobacillus Rhamnosus (Culturelle) 1 cap BID PO Last administered on 20:48; Start 10/31/18 at 21:00 Multivitamins (Thera M Plus) 1 tab DAILY PO Last administered on 10/31/18at 15:48 ; Start 10/31/18 at 15:00 Piperacillin Sod/ Tazobactam Sod 2.25 gm/Sodium Chloride 50 ml @ 100 mls/hr Q6HRS IV Last administered on 11/01/18 13:06; Start 10/31/18 at 14:30 Linezolid (Zyvox) 600 mg BID PO Last administered on 10/31/18at 20:48; Start 10/31 at 14:30; Stop 10/31/18 at 21:00; Status DC Daptomycin 500 mg/ Sodium Chloride 50 ml @ 100 mls/hr Q24H IV Last administered on 10/31/18at 15:47; Start 10/31/18 at 15:00 Loperamide HCl (Imodium) 2 mg PRN Q6HRS PRN PO DIARRHEA; Start 10/31/18 at 19:00 Iodixanol (Visipaque 320) 100 ml STK-MED ONCE .ROUTE ; Start 11/01/18 at 13:17; Stop 11/01/18 at 13:18; Status DC Lidocaine HCl (Lidocaine 1% 20ml Vial) 20 ml STK-MED ONCE .ROUTE ; Start at 13:17; Stop 11/01/18 at 13:18; Status DC Heparin Sodium/ Sodium Chloride 1,000 ml @ As Directed STK-MED ONCE .ROUTE ; Start 11/01/18 at 13:17; Stop 11/01/18 at 13:18; Status DC Midazolam HCl (Versed) 2 mg STK-MED ONCE .ROUTE ; Start 11/01/18 at 14:11; Stop 11/01/18 at 14:12; Status DC Fentanyl Citrate (Fentanyl 2ml Vial) 100 mcg STK-MED ONCE .ROUTE ; Start at 14:12; Stop 11/01/18 at 14:13; Status DC Heparin Sodium/ Sodium Chloride (HEPARIN for ARTERIAL LINE FLUSH) 1,000 unit 1X ONCE IART Last administered on 11/01/18at 15:10; Start 11/01/18 at 15:00; Stop 11/01/18 at 15:01; Status DC Midazolam HCl (Versed) 2 mg 1X ONCE IV Last administered on 11/01/18at 15:12; Start 11/01/18 at 15:00; Stop 11/01/18 at 15:01; Status DC Fentanyl Citrate (Fentanyl 2ml Vial) 100 mcg 1X ONCE IV Last administered on at 15:12; Start 11/01/18 at 15:00; Stop 11/01/18 at 15:01; Status DC Iodixanol (Visipaque 320) 100 ml 1X ONCE IART Last administered on 11/01/18at 15 :10; Start 11/01/18 at 15:00; Stop 11/01/18 at 15:01; Status DC Lidocaine HCl (Lidocaine 1% 20ml Vial) 7 ml 1X ONCE INJ Last administered on at 15:11; Start 11/01/18 at 15:00; Stop 11/01/18 at 15:01; Status DC Info (CONTRAST GIVEN -- Rx MONITORING) 1 each PRN DAILY PRN MC SEE COMMENTS; Start 11/01/18 at 15:00; Stop 11/03/18 at 14:59 Active Scripts Active Diflucan (Fluconazole) 100 Mg Tablet 200 Mg PO DAILY Reported Hydralazine Hcl 50 Mg Tablet 1 Tab PO TID Guaifenesin 100 Mg/5 Ml Liquid 100 Mg PO Dulcolax (Bisacodyl) 5 Mg Tablet. 4 Tab PO DAILY Myfortic (Mycophenolate Sodium) 180 Mg Tablet. 180 Mg PO BID Diflucan (Fluconazole) 200 Mg Tablet 1 Tab PO DAILY Ferrous Sulfate 325 Mg Tablet 1 Tab PO DAILY Lortab 7.5-325 mg Tablet (Hydrocodone/Acetaminophen) 1 Each Tablet 1 Tab PO PRN Q4HRS PRN Lasix (Furosemide) 40 Mg Tablet 1 Tab PO DAILY Prograf (Tacrolimus) 1 Mg Capsule 0.5 Mg PO HS Levemir (Insulin Detemir) 100 Unit/1 Ml Vial 40 Unit SQ QHS Lisinopril 10 Mg Tablet 1 Tab PO DAILY Xanax (Alprazolam) 0.25 Mg Tablet 0.25 Mg PO PRN BID PRN Nephro-Stacey Tablet (Folic Acid/Vitamin B Comp W-C) 0.8 Mg Tablet 1 Tab PO DAILY Myfortic (Mycophenolate Sodium) 180 Mg Tablet. 180 Mg PO BID [meds reviewed] Coreg (Carvedilol) 6.25 Mg Tablet 12.5 Mg PO BIDWMEALS Atorvastatin Calcium 40 Mg Tablet 2 Tab PO QHS Prednisone 5 Mg Tablet 5 Mg PO DAILY Metoclopramide Hcl 5 Mg Tablet 5 Mg PO TIDAC Levetiracetam 500 Mg Tablet 500 Mg PO BID Novolog (Insulin Aspart) 100 Unit/1 Ml Cartridge 6 Unit SQ TIDWMEALS Aspirin 325 Mg Tablet 325 Mg PO DAILY Protonix (Pantoprazole Sodium) 40 Mg Tablet.dr 40 Mg PO DAILY Vitals/I & O Vital Sign - Last 24 Hours 10/31/18 10/31/18 10/31/18 10/31/18 17:27 19:00 20:00 20:49 Temp 98.4 98.4 Pulse 72 83 72 Resp 18 B/P (MAP) 125/45 120/50 (73) 125/45 Pulse Ox 99 O2 Delivery Room Air Room Air 10/31/18 11/01/18 11/01/18 11/01/18 23:00 03:00 07:00 08:41 Temp 98.1 98.2 97.7 98.1 98.2 97.7 Pulse 70 74 73 Resp 18 18 18 B/P (MAP) 154/45 (81) 160/51 (87) 157/58 (91) Pulse Ox 100 97 96 O2 Delivery Room Air Room Air Room Air Room Air 11/01/18 11/01/18 11/01/18 11/01/18 11:31 15:12 15:14 15:35 Temp 97.6 97.6 Pulse 76 72 87 Resp 18 7 12 18 B/P (MAP) 182/61 (101) 160/58 (92) Pulse Ox 97 100 100 99 O2 Delivery Room Air Nasal Cannula Nasal Cannula Room Air O2 Flow Rate 2.0 2.0 Intake and Output 10/31/18 10/31/18 11/01/18 15:00 23:00 07:00 Intake Total 120 ml Balance 120 ml HUY PINEDA MD Nov 01, 2018 15:55
[2018-11-01] MEDS: MULTIVITAMIN with MINERAL TABLET. PO SCH (15:56)
[2018-11-01] MEDS: FOLIC/VIT B COMP W-C (RENAL) TABLET. PO SCH (15:56)
[2018-11-01] MEDS: LISINOPRIL 10 MG TABLET PO SCH (15:56)
[2018-11-01] MEDS: predniSONE 5 MG TABLET PO SCH (15:57)
[2018-11-01] MEDS: FLUCONAZOLE 100 MG TABLET. PO SCH (15:57)
[2018-11-01] MEDS: FERROUS SULFATE 325 MG TABLET. PO SCH (15:57)
[2018-11-01] MEDS: MYCOPHENOLATE ACID 180 MG TABLET.DR. PO SCH ×2 (15:57→21:19)
[2018-11-01] MEDS: levETIRAcetam 500 MG TABLET PO SCH ×2 (15:57→21:19)
[2018-11-01] MEDS: LACTOBACILLUS RHAMNOSUS GG 1 CAPSULE. PO SCH (15:57)
[2018-11-01] MEDS: PANTOPRAZOLE 40 MG TABLET.DR. PO SCH (15:57)
[2018-11-01] MEDS: FUROSEMIDE 40 MG TABLET. PO SCH (15:57)
--- NOTE | 2018-11-01 16:08 | PDOC4 ---
OPERATIVE NOTE Date: Date: Nov 01, 2018 Pre-Op Diagnosis: Atherosclerosis of [place] arteries of bilateral lower extremities with ulceration of the toes of both feet Post-Op Diagnosis: Same as above Procedure Performed: #1 ultrasound-guided access right common femoral artery #2 radiology supervision and interpretation aortogram #3 radiology supervision interpretation bilateral lower extremity runoff to the feet #4 third order selective catheter placement below the diaphragm (access right common femoral artery catheter tip left popliteal artery) Surgeon: Lai Pineda M.D. Anesthesia Type: Conscious sedation under surgeon and RN [id number] minutes fentanyl 75 g Versed 1 mg Blood Loss: 0 Specimans Obtained: None Findings: #1 the abdominal aorta is widely patent without significant occlusive disease #2 bilateral common iliac and external iliac arteries are widely patent. From the right iliac artery there is a widely patent renal graft with a full nephrogram on CO2 angiogram #3 bilateral common femoral artery and profunda femoris artery appeared widely patent #4 left SFA and popliteal are widely patent #5 left NETTIE gives in-line flow to the foot, left BRIDGE ATTACHER gives in-line flow to the ankle and then occludes below the medial malleolus, left peroneal gives in-line flow to the ankle with good collateralization of the foot #6 the right SFA has a short focal complete occlusion with good collateralization and distal reconstitution suggesting chronic disease in the mid to distal SFA. The right popliteal is widely patent #7 2 vessel tibial runoff to the right foot with some evidence of small vessel disease in the right foot Complications: None Operative Note: The patient was escorted to the Project Management It Specialist and placed supine on the table. The groins were prepped and draped in usual sterile fashion. After placement of appropriate monitoring devices conscious sedation was induced under physician and nurse supervision. Attention was directed to the right common femoral artery was fluoroscopically marked or the femoral head and examined with ultrasound. On ultrasound the vessels found to be widely patent with good flow and an image of the vessel was taken and saved for the medical record. Under ultrasound guidance local anesthetic was injected in the right groin and the right common femoral artery was accessed in a retrograde fashion using a micropuncture needle. The Seldinger technique was used to pass a micropuncture wire into the iliac artery and then exchange the needle for a micropuncture sheath which backbled easily. This was used to introduce a Em wire into the abdominal aorta under fluoroscopic guidance and this was used to exchange the micropuncture sheath for a 5 Danish sheath which was aspirated and flushed without difficulty. The wire was used to introduce a pigtail catheter the suprarenal abdominal aorta and an aortogram with carbon dioxide was obtained. The catheter was pulled back to the aortic bifurcation and oblique pelvic injury grams with carbon dioxide were obtained. The pigtail catheter was used to pass a Glidewire into the left iliac system and then the catheter was advanced over the wire to the left common femoral. Carbon dioxide angiograms of the left groin and thigh and popliteal artery were obtained. The catheter was used to advance a Glidewire into the left popliteal artery and the pigtail catheter was exchanged for a long straight glide catheter which was passed up and over the bifurcation with the distal tip in the left popliteal artery. With the catheter tip in the left popliteal artery from right femoral access open (third order placement) carbon dioxide and then limited contrast angiograms were obtained of the left popliteal and tibial arteries to the foot. I determine no intervention was needed here and the catheter was removed. The right groin sheath was then attached to the CO2 system and after appropriate setup this was used to obtain carbon dioxide and grams of the right groin SFA and popliteal. A small amount of contrast was used to confirm right SFA focal ROASTER SUPERVISOR and 2 vessel tibial runoff to the right foot. The sheath was removed over a wire and an Angio-Seal device was deployed at the right groin with excellent hemostasis. The patient was escorted from the Project Management It Specialist in stable condition without complications. We'll plan on left first and second toe amputation tomorrow and right SFA atherectomy/angioplasty on Monday LAI PINEDA MD Nov 01, 2018 16:08
[2018-11-01] MEDS: DAPTOmycin (GENERIC) IVPB 500 MG in IV NORMAL SALINE 50ML 50 ML IV SCH (16:14)
[2018-11-01 16:21] LABS: BASO % 0 % (0-3); EOS # 0.2 x10^3/uL (0.0-0.7); EOS % 2 % (0-3); HEMATOCRIT 36.1 % (36.0-47.0); HEMOGLOBIN 11.1 g/dL (12.0-15.5); LYMPH # 1.1 x10^3/uL (1.0-4.8); LYMPH % 14 % (24-48); MEAN CORPUSCULAR HEMOGLOBIN 25 pg (25-35); MEAN CORPUSCULAR HGB CONC 31 g/dL (31-37); MEAN CORPUSCULAR VOLUME 82 fL (79-100); MONO # 0.8 x10^3/uL (0.0-1.1); MONO % 10 % (0-9); NEUT # 6.1 x10^3uL (1.8-7.7); NEUT % 74 % (31-73); PLATELET COUNT 279 x10^3/uL (140-400); RED BLOOD COUNT 4.38 x10^6/uL (3.50-5.40); RED CELL DISTRIBUTION WIDTH 16.2 % (11.5-14.5); WHITE BLOOD COUNT 8.2 x10^3/uL (4.0-11.0)
[2018-11-01 16:35] LABS: PROTHROMBIN TIME PATIENT 13.3 SEC (11.7-14.0)
--- NOTE | 2018-11-01 16:40 | PDOC ---
PROGRESS NOTES Subjective Subjective Pt seen and examined in her hospital bed s/p dx angiogram She has no c/o -- denies any groin pain, back pain, etc VSS right [employer] access site is soft, non-tender, no mass no hematoma strong signals both ankles doing well complete 2 hours bed rest then up as able plan for 1st and 2nd toe amps tomorrow I discussed the angiogram findings and plans for future care with the patient and her sister (who was present in the room) Objective Objective Vital Signs Date Time Temp Pulse Resp B/P (MAP) Pulse Ox O2 Delivery O2 Flow Rate FiO2 11/01/18 16:15 18 185/52 (96) 99 11/01/18 16:00 85 11/01/18 15:35 Room Air 11/01/18 15:14 2.0 11/01/18 11:31 97.6 97.6 Intake and Output 11/01/18 06:59 Intake Total 120 ml Balance 120 ml Intake Oral 120 ml # Voids 4 # Bowel Movements 14 Assessment Assessment Problems Medical Problems: (1) Anxiety Status: Acute (2) Dementia Status: Acute (3) Diabetic foot ulcers Status: Acute (4) Hyperglycemia Status: Acute (5) Uncontrolled diabetes mellitus Status: Acute Comment Review of Relevant I have reviewed the following items warner (where applicable) has been applied. Labs Laboratory Tests Test 10/30/18 17:10 10/30/18 21:09 10/31/18 06:20 10/31/18 07:29 Nasal Screen MRSA (PCR) Negative (Negative) Glucose (Fingerstick) 222 mg/dL (70-99) 194 mg/dL (70-99) White Blood Count 9.3 x10^3/uL (4.0-11.0) Red Blood Count 3.88 x10^6/uL (3.50-5.40) Hemoglobin 9.9 g/dL (12.0-15.5) Hematocrit 31.4 % (36.0-47.0) Mean Corpuscular Volume 81 fL (79-100) Mean Corpuscular Hemoglobin 25 pg (25-35) Mean Corpuscular Hemoglobin Concent 32 g/dL (31-37) Red Cell Distribution Width 15.8 % (11.5-14.5) Platelet Count 272 x10^3/uL (140-400) Neutrophils (%) (Auto) 74 % (31-73) Lymphocytes (%) (Auto) 15 % (24-48) Monocytes (%) (Auto) 10 % (0-9) Eosinophils (%) (Auto) 2 % (0-3) Basophils (%) (Auto) 0 % (0-3) Neutrophils # (Auto) 6.9 x10^3uL (1.8-7.7) Lymphocytes # (Auto) 1.4 x10^3/uL (1.0-4.8) Monocytes # (Auto) 0.9 x10^3/uL (0.0-1.1) Eosinophils # (Auto) 0.1 x10^3/uL (0.0-0.7) Basophils # (Auto) 0.0 x10^3/uL (0.0-0.2) Sodium Level 141 mmol/L (136-145) Potassium Level 4.3 mmol/L (3.5-5.1) Chloride Level 105 mmol/L (98-107) Carbon Dioxide Level 27 mmol/L (21-32) Anion Gap 9 (6-14) Blood Urea Nitrogen 28 mg/dL (7-20) Creatinine 1.6 mg/dL (0.6-1.0) Estimated GFR (Cockcroft-Gault) 39.1 Glucose Level 235 mg/dL (70-99) Calcium Level 10.2 mg/dL (8.5-10.1) Test 10/31/18 11:30 10/31/18 16:32 10/31/18 19:44 11/01/18 05:53 Glucose (Fingerstick) 134 mg/dL (70-99) 214 mg/dL (70-99) 216 mg/dL (70-99) Sodium Level 145 mmol/L (136-145) Potassium Level 3.7 mmol/L (3.5-5.1) Chloride Level 108 mmol/L (98-107) Carbon Dioxide Level 26 mmol/L (21-32) Anion Gap 11 (6-14) Blood Urea Nitrogen 24 mg/dL (7-20) Creatinine 1.4 mg/dL (0.6-1.0) Estimated GFR (Cockcroft-Gault) 45.7 Glucose Level 120 mg/dL (70-99) Calcium Level 9.8 mg/dL (8.5-10.1) Triglycerides Level 136 mg/dL (0-150) Cholesterol Level 154 mg/dL (0-200) LDL Cholesterol, Calculated 68 mg/dL (0-100) VLDL Cholesterol, Calculated 27 mg/dL (0-40) Non-HDL Cholesterol Calculated 95 mg/dL (0-129) HDL Cholesterol 59 mg/dL (40-60) Cholesterol/HDL Ratio 2.6 Thyroid Stimulating Hormone (TSH) 0.745 uIU/mL (0.358-3.74) Test 11/01/18 07:36 11/01/18 13:02 11/01/18 13:22 11/01/18 16:10 Glucose (Fingerstick) 91 mg/dL (70-99) 53 mg/dL (70-99) 128 mg/dL (70-99) White Blood Count 8.2 x10^3/uL (4.0-11.0) Red Blood Count 4.38 x10^6/uL (3.50-5.40) Hemoglobin 11.1 g/dL (12.0-15.5) Hematocrit 36.1 % (36.0-47.0) Mean Corpuscular Volume 82 fL (79-100) Mean Corpuscular Hemoglobin 25 pg (25-35) Mean Corpuscular Hemoglobin Concent 31 g/dL (31-37) Red Cell Distribution Width 16.2 % (11.5-14.5) Platelet Count 279 x10^3/uL (140-400) Neutrophils (%) (Auto) 74 % (31-73) Lymphocytes (%) (Auto) 14 % (24-48) Monocytes (%) (Auto) 10 % (0-9) Eosinophils (%) (Auto) 2 % (0-3) Basophils (%) (Auto) 0 % (0-3) Neutrophils # (Auto) 6.1 x10^3uL (1.8-7.7) Lymphocytes # (Auto) 1.1 x10^3/uL (1.0-4.8) Monocytes # (Auto) 0.8 x10^3/uL (0.0-1.1) Eosinophils # (Auto) 0.2 x10^3/uL (0.0-0.7) Basophils # (Auto) 0.0 x10^3/uL (0.0-0.2) Prothrombin Time 13.3 SEC (11.7-14.0) Prothromb Time International Ratio 1.0 (0.8-1.1) Test 11/01/18 16:30 Glucose (Fingerstick) 74 mg/dL (70-99) Laboratory Tests Test 10/31/18 19:44 11/01/18 05:53 11/01/18 07:36 11/01/18 13:02 Glucose (Fingerstick) 216 mg/dL (70-99) 91 mg/dL (70-99) 53 mg/dL (70-99) Sodium Level 145 mmol/L (136-145) Potassium Level 3.7 mmol/L (3.5-5.1) Chloride Level 108 mmol/L (98-107) Carbon Dioxide Level 26 mmol/L (21-32) Anion Gap 11 (6-14) Blood Urea Nitrogen 24 mg/dL (7-20) Creatinine 1.4 mg/dL (0.6-1.0) Estimated GFR (Cockcroft-Gault) 45.7 Glucose Level 120 mg/dL (70-99) Calcium Level 9.8 mg/dL (8.5-10.1) Triglycerides Level 136 mg/dL (0-150) Cholesterol Level 154 mg/dL (0-200) LDL Cholesterol, Calculated 68 mg/dL (0-100) VLDL Cholesterol, Calculated 27 mg/dL (0-40) Non-HDL Cholesterol Calculated 95 mg/dL (0-129) HDL Cholesterol 59 mg/dL (40-60) Cholesterol/HDL Ratio 2.6 Thyroid Stimulating Hormone (TSH) 0.745 uIU/mL (0.358-3.74) Test 11/01/18 13:22 11/01/18 16:10 11/01/18 16:30 Glucose (Fingerstick) 128 mg/dL (70-99) 74 mg/dL (70-99) White Blood Count 8.2 x10^3/uL (4.0-11.0) Red Blood Count 4.38 x10^6/uL (3.50-5.40) Hemoglobin 11.1 g/dL (12.0-15.5) Hematocrit 36.1 % (36.0-47.0) Mean Corpuscular Volume 82 fL (79-100) Mean Corpuscular Hemoglobin 25 pg (25-35) Mean Corpuscular Hemoglobin Concent 31 g/dL (31-37) Red Cell Distribution Width 16.2 % (11.5-14.5) Platelet Count 279 x10^3/uL (140-400) Neutrophils (%) (Auto) 74 % (31-73) Lymphocytes (%) (Auto) 14 % (24-48) Monocytes (%) (Auto) 10 % (0-9) Eosinophils (%) (Auto) 2 % (0-3) Basophils (%) (Auto) 0 % (0-3) Neutrophils # (Auto) 6.1 x10^3uL (1.8-7.7) Lymphocytes # (Auto) 1.1 x10^3/uL (1.0-4.8) Monocytes # (Auto) 0.8 x10^3/uL (0.0-1.1) Eosinophils # (Auto) 0.2 x10^3/uL (0.0-0.7) Basophils # (Auto) 0.0 x10^3/uL (0.0-0.2) Prothrombin Time 13.3 SEC (11.7-14.0) Prothromb Time International Ratio 1.0 (0.8-1.1) Microbiology 10/30/18 Blood Culture - Final, Complete 10/31/18 Anaerobic/Aerobic Culture, Resulted Pending 10/31/18 Anaerobic Culture Result 1 (LYN), Resulted Pending 10/31/18 Aerobic Culture, Resulted Pending 10/31/18 Aerobic Culture Result 1 (LYN), Resulted Pending 10/31/18 Gram Stain - Final, Resulted 10/31/18 Gram Stain Result 1 (LYN) - Final, Resulted 10/31/18 Gram Stain Result 2 (LYN) - Final, Resulted Medications Current Medications Cefazolin Sodium/ Dextrose 50 ml @ 100 mls/hr 1X ONCE IV Last administered on 10/30/18at 13:01; Start 10/30/18 at 13:00; Stop 10/30/18 at 13:29; Status DC Vancomycin HCl 250 ml @ 250 mls/hr 1X ONCE IV Last administered on 10/30/18at 14:53; Start 10/30/18 at 13:00; Stop 10/30/18 at 13:59; Status DC Alprazolam (Xanax) 0.25 mg PRN BID PRN PO ANXIETY / AGITATION Last administered on 10/31/18 08:33; Start 10/30/18 at 15:15 Aspirin (Gurwinder Aspirin) 325 mg DAILY PO Last administered on 10/31/18 08:35; Start 10/30/18 at 17:00 Atorvastatin Calcium (Lipitor) 80 mg QHS PO Last administered on 10/31/18 20:48 ; Start 10/30/18 at 21:00 Bisacodyl (Dulcolax Tab) 20 mg DAILY PO Last administered on 10/31/18 08:34; Start 10/31/18 at 09:00 Carvedilol (Coreg) 12.5 mg BIDWMEALS PO Last administered on 10/31/18 17:27; Start 10/30/18 at 17:00 Ferrous Sulfate (Feosol) 325 mg DAILY PO Last administered on 11/01/18 15:57; Start 10/30/18 at 17:00 Vitamin B Complex/ Vitamin C (Vicki-Stacey) 1 tab DAILY PO Last administered on 15:56; Start 10/30/18 at 17:00 Furosemide (Lasix) 40 mg DAILY PO Last administered on 11/01/18 15:57; Start at 17:00 Acetaminophen/ Hydrocodone Bitart (Lortab 7.5/325) 1 tab PRN Q4HRS PRN PO PAIN ; Start 10/30/18 at 15:15 Levetiracetam (Keppra) 500 mg BID PO Last administered on 11/01/18 15:57; Start 10/30/18 at 21:00 Lisinopril (Prinivil) 10 mg DAILY PO Last administered on 11/01/18 15:56; Start 10/30/18 at 17:00 Metoclopramide HCl (Reglan) 5 mg TIDAC PO Last administered on 10/31/18 15:47; Start 10/30/18 at 16:30 Pantoprazole Sodium (Protonix) 40 mg DAILY PO Last administered on 11/01/18 15: 57; Start 10/30/18 at 17:00 Prednisone (Prednisone) 5 mg DAILY PO Last administered on 11/01/18 15:57; Start 10/30/18 at 17:00 Fluconazole (Diflucan) 200 mg DAILY PO Last administered on 11/01/18 15:57; Start 10/31/18 at 09:00 Non-Formulary Medication (Fluconazole (Diflucan)) 1 tab DAILY PO ; Start at 09:00; Status UNV Hydralazine HCl (Apresoline) 50 mg TID PO Last administered on 11/01/18 15:57; Start 10/30/18 at 21:00 Insulin Human Lispro (HumaLOG) 6 units TIDWMEALS SQ Last administered on 17:29; Start 10/30/18 at 17:00 Insulin Glargine (Lantus) 40 units QHS SQ Last administered on 10/31/18 20:50; Start 10/30/18 at 21:00 Mycophenolate Sodium (Myfortic) 180 mg BID PO Last administered on 11/01/18 15: 57; Start 10/30/18 at 21:00 Tacrolimus (Prograf) 0.5 mg QHS PO Last administered on 10/31/18 20:48; Start 10/30/18 at 21:00 Cefazolin Sodium 1 gm/Dextrose 50 ml @ 100 mls/hr Q8HRS IV Last administered on 10/31/18 06:21; Start 10/30/18 at 22:00; Stop 10/31/18 at 13:59; Status DC Insulin Human Lispro (HumaLOG) 0-7 UNITS TIDWMEALS SQ Last administered on 17:31; Start 10/30/18 at 17:00 Dextrose (Dextrose 50%-Water Syringe) 12.5 gm PRN Q15MIN PRN IV SEE COMMENTS Last administered on 11/01/18 13:11; Start 10/30/18 at 15:15 Heparin Sodium (Porcine) (Heparin Sodium) 5,000 unit Q12HR SQ Last administered on 10/31/18 20:50; Start 10/30/18 at 21:00; Stop 11/01/18 at 10:18; Status DC Lorazepam (Ativan) 1 mg 1X ONCE IV Last administered on 10/30/18 15:50; Start 10/30/18 at 15:30; Stop 10/30/18 at 15:54; Status DC Hydralazine HCl (Apresoline Inj) 10 mg PRN Q6HRS PRN IVP ELEVATED BP, SEE COMMENTS; Start 10/30/18 at 18:15 Sodium Chloride 1,000 ml @ 80 mls/hr [id number] IV ; Start 10/31/18 at 10:00; Stop 10/31/18 at 11:09; Status DC Sodium Chloride 1,000 ml @ 100 mls/hr Q10H IV Last administered on 11/01/18at 10 :23; Start 10/31/18 at 11:00 Lactobacillus Rhamnosus (Culturelle) 1 cap BID PO Last administered on at 15:57; Start 10/31/18 at 21:00; Stop 11/01/18 at 16:27; Status DC Multivitamins (Thera M Plus) 1 tab DAILY PO Last administered on 11/01/18at 15:56 ; Start 10/31/18 at 15:00 Piperacillin Sod/ Tazobactam Sod 2.25 gm/Sodium Chloride 50 ml @ 100 mls/hr Q6HRS IV Last administered on 11/01/18at 13:06; Start 10/31/18 at 14:30 Linezolid (Zyvox) 600 mg BID PO Last administered on 10/31/18at 20:48; Start 10/31 at 14:30; Stop 10/31/18 at 21:00; Status DC Daptomycin 500 mg/ Sodium Chloride 50 ml @ 100 mls/hr Q24H IV Last administered on 11/01/18at 16:14; Start 10/31/18 at 15:00 Loperamide HCl (Imodium) 2 mg PRN Q6HRS PRN PO DIARRHEA; Start 10/31/18 at 19:00 Iodixanol (Visipaque 320) 100 ml STK-MED ONCE .ROUTE ; Start 11/01/18 at 13:17; Stop 11/01/18 at 13:18; Status DC Lidocaine HCl (Lidocaine 1% 20ml Vial) 20 ml STK-MED ONCE .ROUTE ; Start at 13:17; Stop 11/01/18 at 13:18; Status DC Heparin Sodium/ Sodium Chloride 1,000 ml @ As Directed STK-MED ONCE .ROUTE ; Start 11/01/18 at 13:17; Stop 11/01/18 at 13:18; Status DC Midazolam HCl (Versed) 2 mg STK-MED ONCE .ROUTE ; Start 11/01/18 at 14:11; Stop 11/01/18 at 14:12; Status DC Fentanyl Citrate (Fentanyl 2ml Vial) 100 mcg STK-MED ONCE .ROUTE ; Start at 14:12; Stop 11/01/18 at 14:13; Status DC Heparin Sodium/ Sodium Chloride (HEPARIN for ARTERIAL LINE FLUSH) 1,000 unit 1X ONCE IART Last administered on 11/01/18at 15:10; Start 11/01/18 at 15:00; Stop 11/01/18 at 15:01; Status DC Midazolam HCl (Versed) 2 mg 1X ONCE IV Last administered on 11/01/18at 15:12; Start 11/01/18 at 15:00; Stop 11/01/18 at 15:01; Status DC Fentanyl Citrate (Fentanyl 2ml Vial) 100 mcg 1X ONCE IV Last administered on at 15:12; Start 11/01/18 at 15:00; Stop 11/01/18 at 15:01; Status DC Iodixanol (Visipaque 320) 100 ml 1X ONCE IART Last administered on 11/01/18at 15 :10; Start 11/01/18 at 15:00; Stop 11/01/18 at 15:01; Status DC Lidocaine HCl (Lidocaine 1% 20ml Vial) 7 ml 1X ONCE INJ Last administered on at 15:11; Start 11/01/18 at 15:00; Stop 11/01/18 at 15:01; Status DC Info (CONTRAST GIVEN -- Rx MONITORING) 1 each PRN DAILY PRN MC SEE COMMENTS; Start 11/01/18 at 15:00; Stop 11/03/18 at 14:59 Active Scripts Active Diflucan (Fluconazole) 100 Mg Tablet 200 Mg PO DAILY Reported Hydralazine Hcl 50 Mg Tablet 1 Tab PO TID Guaifenesin 100 Mg/5 Ml Liquid 100 Mg PO Dulcolax (Bisacodyl) 5 Mg Tablet. 4 Tab PO DAILY Myfortic (Mycophenolate Sodium) 180 Mg Tablet. 180 Mg PO BID Diflucan (Fluconazole) 200 Mg Tablet 1 Tab PO DAILY Ferrous Sulfate 325 Mg Tablet 1 Tab PO DAILY Lortab 7.5-325 mg Tablet (Hydrocodone/Acetaminophen) 1 Each Tablet 1 Tab PO PRN Q4HRS PRN Lasix (Furosemide) 40 Mg Tablet 1 Tab PO DAILY Prograf (Tacrolimus) 1 Mg Capsule 0.5 Mg PO HS Levemir (Insulin Detemir) 100 Unit/1 Ml Vial 40 Unit SQ QHS Lisinopril 10 Mg Tablet 1 Tab PO DAILY Xanax (Alprazolam) 0.25 Mg Tablet 0.25 Mg PO PRN BID PRN Nephro-Stacey Tablet (Folic Acid/Vitamin B Comp W-C) 0.8 Mg Tablet 1 Tab PO DAILY Myfortic (Mycophenolate Sodium) 180 Mg Tablet.dr 180 Mg PO BID [meds reviewed] Coreg (Carvedilol) 6.25 Mg Tablet 12.5 Mg PO BIDWMEALS Atorvastatin Calcium 40 Mg Tablet 2 Tab PO QHS Prednisone 5 Mg Tablet 5 Mg PO DAILY Metoclopramide Hcl 5 Mg Tablet 5 Mg PO TIDAC Levetiracetam 500 Mg Tablet 500 Mg PO BID Novolog (Insulin Aspart) 100 Unit/1 Ml Cartridge 6 Unit SQ TIDWMEALS Aspirin 325 Mg Tablet 325 Mg PO DAILY Protonix (Pantoprazole Sodium) 40 Mg Tablet.dr 40 Mg PO DAILY Vitals/I & O Vital Sign - Last 24 Hours 10/31/18 10/31/18 10/31/18 10/31/18 17:27 19:00 20:00 20:49 Temp 98.4 98.4 Pulse 72 83 72 Resp 18 B/P (MAP) 125/45 120/50 (73) 125/45 Pulse Ox 99 O2 Delivery Room Air Room Air 10/31/18 11/01/18 11/01/18 11/01/18 23:00 03:00 07:00 08:41 Temp 98.1 98.2 97.7 98.1 98.2 97.7 Pulse 70 74 73 Resp 18 18 18 B/P (MAP) 154/45 (81) 160/51 (87) 157/58 (91) Pulse Ox 100 97 96 O2 Delivery Room Air Room Air Room Air Room Air 11/01/18 11/01/18 11/01/18 11/01/18 11:31 13:45 15:12 15:14 Temp 97.6 97.6 Pulse 76 85 72 Resp 18 7 12 B/P (MAP) 182/61 (101) 180/62 (101) Pulse Ox 97 98 100 100 O2 Delivery Room Air Nasal Cannula Nasal Cannula O2 Flow Rate 2.0 2.0 11/01/18 11/01/18 11/01/18 11/01/18 15:35 15:56 15:57 16:00 Pulse 87 87 87 85 Resp 18 B/P (MAP) 160/58 (92) 160/58 160/58 169/49 (89) Pulse Ox 99 100 O2 Delivery Room Air 11/01/18 16:15 B/P (MAP) 185/52 (96) Pulse Ox 99 Intake and Output 10/31/18 10/31/18 11/01/18 14:59 22:59 06:59 Intake Total 120 ml Balance 120 ml HUY PINEDA MD Nov 01, 2018 16:40
[2018-11-01] MEDS: hydrALAZINE 20 MG/ML VIAL. IVP PRN (17:17)
[2018-11-01] MEDS: ATORVASTATIN CALCIUM 40 MG TABLET. PO SCH (21:19)
[2018-11-01] MEDS: TACROLIMUS 0.5 MG CAPSULE PO SCH (21:19)
[2018-11-01 23:15] LABS: HEMOGLOBIN A1C 8.8 % (4.8-5.6)
[2018-11-01] MEDS: INSULIN GLARGINE 300 UNITS/3 ML INSULN.PEN. SQ SCH (23:19)
[2018-11-02] VITALS (8 sets, daily range): BP systolic 93–180; BP diastolic 36–55
[2018-11-02] MEDS: PIPERACILLIN/TAZOBACTAM 2.25 GM in IV NORMAL SALINE 50ML 50 ML IV SCH ×4 (00:33→17:56)
[2018-11-02] MEDS: IV NORMAL SALINE 1000ML BAG 1,000 ML IV SCH ×3 (03:00→22:14)
[2018-11-02 04:43] LABS: CALCIUM 9.3 mg/dL (8.5-10.1); CREATININE 1.5 mg/dL (0.6-1.0); GFR 42.2
[2018-11-02] MEDS: METOCLOPRAMIDE 5 MG TABLET. PO SCH ×3 (07:30→16:55)
[2018-11-02] MEDS: DEXTROSE 50% 25 GM / 50ML DISP.SYRIN. IV PRN ×4 (07:45→09:10)
[2018-11-02] MEDS: INSULIN LISPRO 300 UNITS/3 ML INSULN.PEN. SQ SCH ×6 (08:00→17:58)
[2018-11-02] MEDS: CARVEDILOL 6.25 MG TABLET. PO SCH ×2 (08:00→17:00)
[2018-11-02] MEDS: hydrALAZINE 20 MG/ML VIAL. IVP PRN (08:07)
[2018-11-02] MEDS: FUROSEMIDE 40 MG TABLET. PO SCH (09:00)
[2018-11-02] MEDS: LISINOPRIL 10 MG TABLET PO SCH (09:00)
[2018-11-02] MEDS: MYCOPHENOLATE ACID 180 MG TABLET.DR. PO SCH ×2 (09:00→22:13)
[2018-11-02] MEDS: levETIRAcetam 500 MG TABLET PO SCH ×2 (09:00→22:14)
[2018-11-02] MEDS: BISACODYL 5 MG TABLET.DR. PO SCH (09:00)
--- NOTE | 2018-11-02 09:13 | PDOC ---
Infectious Disease Note Subjective: Subjective pt feels ok awaiting surgery later today no f/c/n/v/d/sob/headache has swelling of the RUE ROS: ROS Negative except for above. Vital Signs: Vital Signs Vital Signs Date Time Temp Pulse Resp B/P (MAP) Pulse Ox O2 Delivery O2 Flow Rate FiO2 11/02/18 08:07 83 180/55 11/02/18 07:30 99.3 16 95 Room Air 99.3 11/02/18 03:00 2.0 Physical Exam: PHYSICAL EXAM GENERAL: Alert and oriented x 3 female, tearful, sitting at the edge of the bed, in no acute distress. Denies any SI or HI symptoms. HEENT: Normocephalic, atraumatic, anicteric. No thrush. Oral mucosa moist. NECK: Supple. No JVD. LUNGS: Clear bilaterally. No wheezing. HEART: S1, S2 with no gallops or murmurs. ABDOMEN: Soft, nontender, nondistended. No rebound, no guarding. Incision scar abdomen well healed. EXTREMITIES: Bilateral foot wounds intact. Pictures reviewed, which are in the chart. The patient has multiple wounds of the right great toe; left great toe; left first, second and third toe and right heel with some thick callus and eschar. There are some changes suggestive of peripheral arterial disease for both lower extremities anteriorly near the tibial rubio. No other draining wounds noted. RUE swelling present, CENTRAL NERVOUS SYSTEM: Alert and oriented x 3. Grossly nonfocal. PSYCHIATRIC: Cooperative, appropriate mood and affect. DERMATOLOGIC: Warm, dry. No generalized rash. Medications: Inpatient Meds: Current Medications Medications (Trade) Dose Ordered Sig/Te Start Time Stop Time Status Last Admin Dose Admin Acetaminophen/ Hydrocodone Bitart (Lortab 7.5/325) 1 tab PRN Q4HRS PRN 10/30/18 15:15 Alprazolam (Xanax) 0.25 mg PRN BID PRN 10/30/18 15:15 10/31/18 08:33 0.25 MG Aspirin (Gurwinder Aspirin) 325 mg DAILY 10/30/18 17:00 10/31/18 08:35 325 MG Atorvastatin Calcium (Lipitor) 80 mg QHS 10/30/18 21:00 11/01/18 21:19 80 MG Bisacodyl (Dulcolax Tab) 20 mg DAILY 10/31/18 09:00 10/31/18 08:34 20 MG Carvedilol (Coreg) 12.5 mg BIDWMEALS 10/30/18 17:00 11/01/18 17:38 12.5 MG Cefazolin Sodium 1 gm/Dextrose 50 ml @ 100 mls/hr Q8HRS 10/30/18 22:00 10/31/18 13:59 DC 10/31/18 06:21 100 MLS/HR Cefazolin Sodium/ Dextrose 50 ml @ 100 mls/hr 1X ONCE 10/30/18 13:00 10/30/18 13:29 DC 10/30/18 13:01 100 MLS/HR Daptomycin 500 mg/ Sodium Chloride 50 ml @ 100 mls/hr Q24H 10/31/18 15:00 11/01/18 16:14 100 MLS/HR Dextrose (Dextrose 50%-Water Syringe) 12.5 gm PRN Q15MIN PRN 10/30/18 15:15 11/02/18 07:59 12.5 GM Fentanyl Citrate (Fentanyl 2ml Vial) 100 mcg 1X ONCE 11/01/18 15:00 11/01/18 15:01 DC 11/01/18 15:12 100 MCG Ferrous Sulfate (Feosol) 325 mg DAILY 10/30/18 17:00 11/01/18 15:57 325 MG Fluconazole (Diflucan) 200 mg DAILY 10/31/18 09:00 11/01/18 15:57 200 MG Furosemide (Lasix) 40 mg DAILY 10/30/18 17:00 11/01/18 15:57 40 MG Heparin Sodium (Porcine) (Heparin Sodium) 5,000 unit Q12HR 10/30/18 21:00 11/01/18 10:18 DC 10/31/18 20:50 5,000 UNIT Heparin Sodium/ Sodium Chloride (HEPARIN for ARTERIAL LINE FLUSH) 1,000 unit 1X ONCE 11/01/18 15:00 11/01/18 15:01 DC 11/01/18 15:10 1,000 UNIT Hydralazine HCl (Apresoline Inj) 10 mg PRN Q6HRS PRN 10/30/18 18:15 11/02/18 08:07 10 MG Hydralazine HCl (Apresoline) 50 mg TID 10/30/18 21:00 3/7/19 21:20 50 MG Info (CONTRAST GIVEN -- Rx MONITORING) 1 each PRN DAILY PRN 11/01/18 15:00 11/03/18 14:59 Insulin Glargine (Lantus) 40 units QHS 10/30/18 21:00 11/01/18 23:19 30 UNITS Insulin Human Lispro (HumaLOG) 0-7 UNITS TIDWMEALS 10/30/18 17:00 10/31/18 17:31 4 UNITS Iodixanol (Visipaque 320) 100 ml 1X ONCE 11/01/18 15:00 11/01/18 15:01 DC 11/01/18 15:10 35 ML Lactobacillus Rhamnosus (Culturelle) 1 cap BID 10/31/18 21:00 11/01/18 16:27 DC 11/01/18 15:57 1 CAP Levetiracetam (Keppra) 500 mg BID 10/30/18 21:00 11/01/18 21:19 500 MG Lidocaine HCl (Lidocaine 1% 20ml Vial) 7 ml 1X ONCE 11/01/18 15:00 11/01/18 15:01 DC 11/01/18 15:11 7 ML Linezolid (Zyvox) 600 mg BID 10/31/18 14:30 10/31/18 21:00 DC 10/31/18 20:48 600 MG Lisinopril (Prinivil) 10 mg DAILY 10/30/18 17:00 11/01/18 15:56 10 MG Loperamide HCl (Imodium) 2 mg PRN Q6HRS PRN 10/31/18 19:00 11/01/18 17:44 2 MG Lorazepam (Ativan) 1 mg 1X ONCE 10/30/18 15:30 10/30/18 15:54 DC 10/30/18 15:50 1 MG Metoclopramide HCl (Reglan) 5 mg TIDAC 10/30/18 16:30 11/01/18 17:16 5 MG Midazolam HCl (Versed) 2 mg 1X ONCE 11/01/18 15:00 11/01/18 15:01 DC 11/01/18 15:12 2 MG Multivitamins (Thera M Plus) 1 tab DAILY 10/31/18 15:00 11/01/18 15:56 1 TAB Mycophenolate Sodium (Myfortic) 180 mg BID 10/30/18 21:00 11/01/18 21:19 180 MG Non-Formulary Medication (Fluconazole (Diflucan)) 1 tab DAILY 10/31/18 09:00 UNV Pantoprazole Sodium (Protonix) 40 mg DAILY 10/30/18 17:00 11/01/18 15:57 40 MG Piperacillin Sod/ Tazobactam Sod 2.25 gm/Sodium Chloride 50 ml @ 100 mls/hr Q6HRS 10/31/18 14:30 11/02/18 05:44 100 MLS/HR Prednisone (Prednisone) 5 mg DAILY 10/30/18 17:00 11/01/18 15:57 5 MG Sodium Chloride 1,000 ml @ 100 mls/hr Q10H 10/31/18 11:00 11/01/18 10:23 100 MLS/HR Tacrolimus (Prograf) 0.5 mg QHS 10/30/18 21:00 11/01/18 21:19 0.5 MG Vancomycin HCl 250 ml @ 250 mls/hr 1X ONCE 10/30/18 13:00 10/30/18 13:59 DC 10/30/18 14:53 250 MLS/HR Vitamin B Complex/ Vitamin C (Vikci-Stacey) 1 tab DAILY 10/30/18 17:00 11/01/18 15:56 1 TAB Labs: Lab Laboratory Tests Test 11/01/18 13:02 11/01/18 13:22 11/01/18 16:10 11/01/18 16:30 Glucose (Fingerstick) 53 mg/dL (70-99) 128 mg/dL (70-99) 74 mg/dL (70-99) White Blood Count 8.2 x10^3/uL (4.0-11.0) Red Blood Count 4.38 x10^6/uL (3.50-5.40) Hemoglobin 11.1 g/dL (12.0-15.5) Hematocrit 36.1 % (36.0-47.0) Mean Corpuscular Volume 82 fL (79-100) Mean Corpuscular Hemoglobin 25 pg (25-35) Mean Corpuscular Hemoglobin Concent 31 g/dL (31-37) Red Cell Distribution Width 16.2 % (11.5-14.5) Platelet Count 279 x10^3/uL (140-400) Neutrophils (%) (Auto) 74 % (31-73) Lymphocytes (%) (Auto) 14 % (24-48) Monocytes (%) (Auto) 10 % (0-9) Eosinophils (%) (Auto) 2 % (0-3) Basophils (%) (Auto) 0 % (0-3) Neutrophils # (Auto) 6.1 x10^3uL (1.8-7.7) Lymphocytes # (Auto) 1.1 x10^3/uL (1.0-4.8) Monocytes # (Auto) 0.8 x10^3/uL (0.0-1.1) Eosinophils # (Auto) 0.2 x10^3/uL (0.0-0.7) Basophils # (Auto) 0.0 x10^3/uL (0.0-0.2) Prothrombin Time 13.3 SEC (11.7-14.0) Prothromb Time International Ratio 1.0 (0.8-1.1) Test 11/01/18 20:15 11/02/18 04:00 11/02/18 07:51 Glucose (Fingerstick) 142 mg/dL (70-99) 52 mg/dL (70-99) Sodium Level 145 mmol/L (136-145) Potassium Level 4.0 mmol/L (3.5-5.1) Chloride Level 109 mmol/L (98-107) Carbon Dioxide Level 20 mmol/L (21-32) Anion Gap 16 (6-14) Blood Urea Nitrogen 19 mg/dL (7-20) Creatinine 1.5 mg/dL (0.6-1.0) Estimated GFR (Cockcroft-Gault) 42.2 Glucose Level 70 mg/dL (70-99) Calcium Level 9.3 mg/dL (8.5-10.1) Micro RUN DATE: 11/01/18 PAGE 1 RUN TIME: 2000 [facility] [address] [place] [address] Braydon Charles M.D., [employer] PATIENT: DIANA WATERS ACCT: [id number] LOC: [address] [place] [address] U : [id number] AGE/SX: 63/F ROOM: 582 REG : 10/30/[address]: AUGUSTO BRUNER MD : 1955 BED: 1 DIS : STATUS: ADM IN TLOC: SPEC #: [id number] RUBIO: 10/31/18 STATUS: RES REQ #: [id number] RECD: 10/31/[address] [facility] [address]: AUGUSTO BRUNER MD SOURCE: FOOT ENTR: 10/31/18 [facility] DR: MAGNUS SMITH MD [facility]: LETY THOMPSON MD, ARUNDHATI S MD KELLING, DOUGLAS M DO ORDERED: HARDIK/IVON/CRISTOPHER Procedure Result ANAEROBIC-AEROBIC CULTURE PENDING ANAEROBIC RES 1 PENDING AEROBIC CULT PENDING AEROBIC RES 1 PENDING GRAM STAIN Final Final report GRAM STAIN RES 1 Final Comment No white blood cells seen. GRAM STAIN RES 2 Final Comment Few gram positive cocci Performed at: DA - [facility] [address] [facility] [address], [place], [place] [id number] Convention Manager: MAYUR Browning MD, Phone: [phone] Objective: Assessment: 1. Rt foot toes with gangrene ,s/p angio, awaiting 1st and 2nd toe amputation 2. Peripheral arterial disease.s/p angiogram, awaiting right SFA atherectomy/ angioplasty on Monday 3. Chronic kidney disease, status post renal transplant. 4. 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 Acute kidney injury with chronic kidney disease. 6. Hypertension. 7. Coronary artery disease. 8. Diabetes. 9. GPC bacteremia 1/4 ID and SAULO pending,likely contaminant Plan: Plan of Care Cont empiric ceftriaxone. cont daptomycin cont fluconazole 200 mg p.o. daily. May need renal dosing as per renal functions. f/u cryptococcal ag f/u id and saulo of gpc in blood U/S RUE to r/O DVT,d w RN elevate RUE Vascular Surgery is following and is planning for multiple interventions Wound care treatment. Follow up cultures and lab in a.m . Continue supportive care. LINDY LANDON MD Nov 02, 2018 09:13
--- NOTE | 2018-11-02 09:51 | NUR ---
pt a.m. CBG was 53. 1/2 amp dextrose given. after 5 minutes repeat CBG 50. another 1/2 amp attempted. much resistance met. IV had been wrapped w/ kerlex by manufacturing supervisor 2nd shift d/t previous IV site infiltration. this brief writer noticed that new IV had also infiltrated. IV removed, another one started in upper R arm. CBG repeat was 44. 1 amp dextrose given. CBG now 194. will monitor patient and CBG.
--- NOTE | 2018-11-02 10:05 | NUR ---
verbal order from Dr. Moran at bedside for pt to have midline placed.
[2018-11-02] MEDS ORDERED: IV RINGERS,LACTATED 1000ML 1,000 ML IV SCH (10:06)
[2018-11-02] MEDS ORDERED: MORPHINE SULFATE 2 MG/ML VIAL. IV PRN (10:15)
[2018-11-02] MEDS ORDERED: HYDROmorphone 2 MG/ML VIAL IV PRN (10:15)
[2018-11-02] MEDS ORDERED: LIDOCAINE 1% PF 2 ML VIAL. ID PRN (10:15)
--- NOTE | 2018-11-02 10:28 | NUR ---
SW following. Discussed with RN, pt having a surgery today. SW to fax updates to [facility]. YINA will continue to follow.
--- NOTE | 2018-11-02 10:33 | PDOC ---
PROGRESS NOTES Subjective Subjective low sugar this morning ,given d50 ampule Objective Objective Vital Signs Date Time Temp Pulse Resp B/P (MAP) Pulse Ox O2 Delivery O2 Flow Rate FiO2 11/02/18 08:07 83 180/55 11/02/18 07:30 99.3 16 95 Room Air 99.3 11/02/18 03:00 2.0 Intake and Output 11/02/18 07:00 Intake Total 350 ml Output Total 3 ml Balance 347 ml Intake Oral 250 ml IV Total 100 ml Stool Total 3 ml # Voids 3 # Bowel Movements 1 Physical Exam Abdomen: Normal bowel sounds, Soft, Other (obese, healed midline scar) Heart: Regular rate, Normal S1, Normal S2 Extremities: Other General: Alert, Cooperative Lungs: Clear to auscultation MUSCULOSKELETAL: No swelling Neck: Supple Neuro: Normal speech Psych/Mental Status: Mood NL COMMENT art multiple toes gangrene dry Diagnosis Problem List Problems Medical Problems: (1) Anxiety Status: Acute (2) Dementia Status: Acute (3) Diabetic foot ulcers Status: Acute (4) Hyperglycemia Status: Acute (5) Uncontrolled diabetes mellitus Status: Acute Assessment Assessment Problems Medical Problems: (1) Anxiety Status: Acute (2) Dementia Status: Acute (3) Diabetic foot ulcers Status: Acute (4) Hyperglycemia Status: Acute (5) Uncontrolled diabetes mellitus Status: Acute FINAL IMPRESSION:Hypoglycemia 1. 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 2. Peripheral vascular disease, severe. 3. Insulin-dependent diabetes. 4. Chronic kidney disease, history of kidney transplant. 5. History of immunosuppression. 6. History of disseminated cryptococcal disease. 7. History of seizures. 8. History of previous stroke. 9. Bypass surgery.CABG 10. Chronic systolic heart failure, ejection fraction around 40. 11.Lung Nodule ,benign on CT scan PLAN: surgery today , toe amputations later today Arteriogram done yesterday. doppler legs dec circulation below the knees. iv hydration . iv antibiotics. blood c/s 1 in 4 bottles positive . wound c/s pending, gram positive appreciate vascular +ID and Renal consults. cr 1.5 today. At this time, admit to hospital, vascular consult, had a Doppler not much blood flow, may need an arteriogram, need to hydrate the patient, Renal consult to prevent contrast-induced kidney problems especially she has a kidney transplant, will ask Renal consult and also IV antibiotics, wound culture and further recommendations to follow. The patient may end up amputating couple of toes. Plan Plan of Care Problems Medical Problems: (1) Anxiety Status: Acute (2) Dementia Status: Acute (3) Diabetic foot ulcers Status: Acute (4) Hyperglycemia Status: Acute (5) Uncontrolled diabetes mellitus Status: Acute Comment Review of Relevant I have reviewed the following items warner (where applicable) has been applied. Labs Laboratory Tests Test 11/01/18 13:02 11/01/18 13:22 11/01/18 16:10 11/01/18 16:30 Glucose (Fingerstick) 53 mg/dL (70-99) 128 mg/dL (70-99) 74 mg/dL (70-99) White Blood Count 8.2 x10^3/uL (4.0-11.0) Red Blood Count 4.38 x10^6/uL (3.50-5.40) Hemoglobin 11.1 g/dL (12.0-15.5) Hematocrit 36.1 % (36.0-47.0) Mean Corpuscular Volume 82 fL (79-100) Mean Corpuscular Hemoglobin 25 pg (25-35) Mean Corpuscular Hemoglobin Concent 31 g/dL (31-37) Red Cell Distribution Width 16.2 % (11.5-14.5) Platelet Count 279 x10^3/uL (140-400) Neutrophils (%) (Auto) 74 % (31-73) Lymphocytes (%) (Auto) 14 % (24-48) Monocytes (%) (Auto) 10 % (0-9) Eosinophils (%) (Auto) 2 % (0-3) Basophils (%) (Auto) 0 % (0-3) Neutrophils # (Auto) 6.1 x10^3uL (1.8-7.7) Lymphocytes # (Auto) 1.1 x10^3/uL (1.0-4.8) Monocytes # (Auto) 0.8 x10^3/uL (0.0-1.1) Eosinophils # (Auto) 0.2 x10^3/uL (0.0-0.7) Basophils # (Auto) 0.0 x10^3/uL (0.0-0.2) Prothrombin Time 13.3 SEC (11.7-14.0) Prothromb Time International Ratio 1.0 (0.8-1.1) Test 11/01/18 20:15 11/02/18 04:00 11/02/18 07:51 11/02/18 09:09 Glucose (Fingerstick) 142 mg/dL (70-99) 52 mg/dL (70-99) 44 mg/dL (70-99) Sodium Level 145 mmol/L (136-145) Potassium Level 4.0 mmol/L (3.5-5.1) Chloride Level 109 mmol/L (98-107) Carbon Dioxide Level 20 mmol/L (21-32) Anion Gap 16 (6-14) Blood Urea Nitrogen 19 mg/dL (7-20) Creatinine 1.5 mg/dL (0.6-1.0) Estimated GFR (Cockcroft-Gault) 42.2 Glucose Level 70 mg/dL (70-99) Calcium Level 9.3 mg/dL (8.5-10.1) Test 11/02/18 09:27 11/02/18 09:42 Glucose (Fingerstick) 50 mg/dL (70-99) 194 mg/dL (70-99) Microbiology 10/30/18 Blood Culture - Final, Complete 10/31/18 Anaerobic/Aerobic Culture, Resulted Pending 10/31/18 Anaerobic Culture Result 1 (LYN), Resulted Pending 10/31/18 Aerobic Culture, Resulted Pending 10/31/18 Aerobic Culture Result 1 (LYN), Resulted Pending 10/31/18 Gram Stain - Final, Resulted 10/31/18 Gram Stain Result 1 (LYN) - Final, Resulted 10/31/18 Gram Stain Result 2 (LYN) - Final, Resulted Medications Current Medications Fentanyl Citrate (Fentanyl 2ml Vial) 100 mcg 1X ONCE IV Last administered on at 15:12; Start 11/01/18 at 15:00; Stop 11/01/18 at 15:01; Status DC Fentanyl Citrate (Fentanyl 2ml Vial) 100 mcg STK-MED ONCE .ROUTE ; Start at 14:12; Stop 11/01/18 at 14:13; Status DC Heparin Sodium/ Sodium Chloride 1,000 ml @ As Directed STK-MED ONCE .ROUTE ; Start 11/01/18 at 13:17; Stop 11/01/18 at 13:18; Status DC Heparin Sodium/ Sodium Chloride (HEPARIN for ARTERIAL LINE FLUSH) 1,000 unit 1X ONCE IART Last administered on 11/01/18at 15:10; Start 11/01/18 at 15:00; Stop 11/01/18 at 15:01; Status DC Hydromorphone HCl (Dilaudid) 0.5 mg PRN Q10MIN PRN IV SEV PAIN, Second choice; Start 11/02/18 at 10:15; Stop 11/03/18 at 10:14 Info (CONTRAST GIVEN -- Rx MONITORING) 1 each PRN DAILY PRN MC SEE COMMENTS; Start 11/01/18 at 15:00; Stop 11/03/18 at 14:59 Iodixanol (Visipaque 320) 100 ml 1X ONCE IART Last administered on 11/01/18at 15 :10; Start 11/01/18 at 15:00; Stop 11/01/18 at 15:01; Status DC Iodixanol (Visipaque 320) 100 ml STK-MED ONCE .ROUTE ; Start 11/01/18 at 13:17; Stop 11/01/18 at 13:18; Status DC Lidocaine HCl (Lidocaine 1% 20ml Vial) 7 ml 1X ONCE INJ Last administered on at 15:11; Start 11/01/18 at 15:00; Stop 11/01/18 at 15:01; Status DC Lidocaine HCl (Lidocaine 1% 20ml Vial) 20 ml STK-MED ONCE .ROUTE ; Start at 13:17; Stop 11/01/18 at 13:18; Status DC Lidocaine HCl (Xylocaine-Mpf 1% 2ml Vial) 2 ml 1X PRN PRN ID IV START; Start at 10:15; Stop 11/03/18 at 10:14 Midazolam HCl (Versed) 2 mg 1X ONCE IV Last administered on 11/01/18at 15:12; Start 11/01/18 at 15:00; Stop 11/01/18 at 15:01; Status DC Midazolam HCl (Versed) 2 mg STK-MED ONCE .ROUTE ; Start 11/01/18 at 14:11; Stop 11/01/18 at 14:12; Status DC Morphine Sulfate (Morphine Sulfate) 1 mg PRN Q10MIN PRN IV SEVERE PAIN; Start 11/02/18 at 10:15; Stop 11/03/18 at 10:14 Ringer's Solution 1,000 ml @ 30 mls/hr Q24H IV ; Start 11/02/18 at 10:06; Stop 11/02/18 at 22:05 Vitals/I & O Vital Sign - Last 24 Hours 11/01/18 11/01/18 11/01/18 11/01/18 11:31 13:45 15:12 15:14 Temp 97.6 97.6 Pulse 76 85 72 Resp 18 7 12 B/P (MAP) 182/61 (101) 180/62 (101) Pulse Ox 97 98 100 100 O2 Delivery Room Air Nasal Cannula Nasal Cannula O2 Flow Rate 2.0 2.0 11/01/18 11/01/18 11/01/18 11/01/18 15:35 15:56 15:57 16:00 Pulse 87 87 87 85 Resp 18 B/P (MAP) 160/58 (92) 160/58 160/58 169/49 (89) Pulse Ox 99 100 O2 Delivery Room Air 11/01/18 11/01/18 11/01/18 11/01/18 16:15 17:17 17:38 19:20 Temp 98.2 98.2 Pulse 97 Resp 18 18 B/P (MAP) 185/52 (96) 182/47 163/46 100/45 (63) Pulse Ox 99 96 O2 Delivery Room Air 11/01/18 11/01/18 11/01/18 11/02/18 20:00 21:20 23:00 03:00 Temp 98.9 98.2 98.9 98.2 Pulse 97 80 63 Resp 18 18 B/P (MAP) 100/45 137/44 (75) 131/47 (75) Pulse Ox 96 96 O2 Delivery Room Air Room Air O2 Flow Rate 2.0 11/02/18 11/02/18 07:30 08:07 Temp 99.3 99.3 Pulse 83 83 Resp 16 B/P (MAP) 180/55 (96) 180/55 Pulse Ox 95 O2 Delivery Room Air Intake and Output 11/01/18 11/01/18 11/02/18 15:00 23:00 07:00 Intake Total 0 ml 250 ml 100 ml Output Total 3 ml Balance 0 ml 247 ml 100 ml AUGSUTO BRUNER MD Nov 02, 2018 10:33
--- NOTE | 2018-11-02 11:59 | RAD ---
EXAM: Right upper extremity venous Doppler sonogram. HISTORY: Swelling and pain. TECHNIQUE: Sandy scale and color Doppler sonographic evaluation of the right upper extremity veins with spectral waveform analysis was performed. FINDINGS: The exam is limited due to soft tissue edema predominantly within the forearm as well as uncooperative patient behavior. The right basilic vein is not seen in the right axillary vein is not well seen. There is normal color flow, normal compressibility and there are normal spectral waveforms in the remainder of the upper extremity veins. IMPRESSION: No Doppler evidence of upper extremity venous thrombosis, with evaluation limitations described above. The basilic vein is not seen and the axillary vein is not well seen. Electronically signed by: Litzy Jennings MD (11/02/2018 11:56 AM) [place] [id number]
[2018-11-02] MEDS ORDERED: LIDOCAINE 2% PF 5 ML VIAL. ONE (13:21)
[2018-11-02] MEDS ORDERED: PROPOFOL 0 ML IV ONE (13:21)
[2018-11-02] MEDS ORDERED: DEXAMETHASONE SOD PHOS 20 MG/5 ML VIAL. ONE (13:21)
[2018-11-02] MEDS ORDERED: FAMOTIDINE 20 MG/2 ML VIAL ONE (13:21)
[2018-11-02] MEDS ORDERED: ONDANSETRON PF 4 MG/2 ML VIAL. ONE (13:21)
[2018-11-02] MEDS ORDERED: fentaNYL PF VIAL 100 MCG/2 ML VIAL ONE (13:23)
[2018-11-02] MEDS ORDERED: MIDAZOLAM HCL/PF 2 MG/2 ML VIAL. ONE (13:23)
--- NOTE | 2018-11-02 13:50 | PDOC ---
SUBJECTIVE ROS stable, surgery today OBJECTIVE Vital Signs Vital Signs Date Time Temp Pulse Resp B/P (MAP) Pulse Ox O2 Delivery O2 Flow Rate FiO2 11/02/18 11:00 98.0 78 18 93/41 (58) 94 Room Air 98.0 11/02/18 03:00 2.0 I & 0 Intake and Output 11/02/18 06:59 Intake Total 350 ml Output Total 3 ml Balance 347 ml Intake Oral 250 ml IV Total 100 ml Stool Total 3 ml # Voids 3 # Bowel Movements 1 PHYSICAL EXAM Physical Exam GENERAL: NAD, HEENT- OM moist NECK: Supple CV: RRR LUNGS: CTA ABDOMEN: Obese, soft, No Tenderness over Renal Transplant, No bruit EXTREMITIES: left forearm AV shunt with a palpable thrill. Gu No vences Skin No rash Neuro- AXOX3 DIAGNOSIS/ASSESSMENT Assessment & Plan Renal Trans[place]- [place] [facility] [place] [facility] [place] Tacrol[place], continue home dose CKD stage 3- Stable, baseline Cr 1.4-1.7 Intermittent Marce Bilateral toe gangrene. s/p angiogram as per vascular doppler legs dec circulation below the knees Discussed risk of KUSUM with patient KUSUM Prophylaxis with iodinated contrast IV NS (Carlos RN) , Hold Lasix DM - as per primary HTN- Antihypertensive Anemia- Hb stable Discussed A/P with Pt and RN at bedside COMMENT/RELEVANT DATA Meds Current Medications Medications (Trade) Dose Ordered Sig/Te Start Time Stop Time Status Last Admin Dose Admin Acetaminophen/ Hydrocodone Bitart (Lortab 7.5/325) 1 tab PRN Q4HRS PRN 10/30/18 15:15 Alprazolam (Xanax) 0.25 mg PRN BID PRN 10/30/18 15:15 10/31/18 08:33 0.25 MG Aspirin (Gurwinder Aspirin) 325 mg DAILY 10/30/18 17:00 10/31/18 08:35 325 MG Atorvastatin Calcium (Lipitor) 80 mg QHS 10/30/18 21:00 11/01/18 21:19 80 MG Bisacodyl (Dulcolax Tab) 20 mg DAILY 10/31/18 09:00 10/31/18 08:34 20 MG Carvedilol (Coreg) 12.5 mg BIDWMEALS 10/30/18 17:00 11/01/18 17:38 12.5 MG Cefazolin Sodium 1 gm/Dextrose 50 ml @ 100 mls/hr Q8HRS 10/30/18 22:00 10/31/18 13:59 DC 10/31/18 06:21 100 MLS/HR Cefazolin Sodium/ Dextrose 50 ml @ 100 mls/hr 1X ONCE 10/30/18 13:00 10/30/18 13:29 DC 10/30/18 13:01 100 MLS/HR Daptomycin 500 mg/ Sodium Chloride 50 ml @ 100 mls/hr Q24H 10/31/18 15:00 11/01/18 16:14 100 MLS/HR Dexamethasone Sodium Phosphate (Decadron) 20 mg STK-MED ONCE 11/02/18 13:21 11/02/18 13:22 DC Dextrose (Dextrose 50%-Water Syringe) 12.5 gm PRN Q15MIN PRN 10/30/18 15:15 11/02/18 09:10 12.5 GM Famotidine (Pepcid Vial) 20 mg STK-MED ONCE 11/02/18 13:21 11/02/18 13:22 DC Fentanyl Citrate (Fentanyl 2ml Vial) 100 mcg STK-MED ONCE 11/02/18 13:23 11/02/18 13:24 DC Ferrous Sulfate (Feosol) 325 mg DAILY 10/30/18 17:00 11/01/18 15:57 325 MG Fluconazole (Diflucan) 200 mg DAILY 10/31/18 09:00 11/01/18 15:57 200 MG Furosemide (Lasix) 40 mg DAILY 10/30/18 17:00 11/01/18 15:57 40 MG Heparin Sodium (Porcine) (Heparin Sodium) 5,000 unit Q12HR 10/30/18 21:00 11/01/18 10:18 DC 10/31/18 20:50 5,000 UNIT Heparin Sodium/ Sodium Chloride (HEPARIN for ARTERIAL LINE FLUSH) 1,000 unit 1X ONCE 11/01/18 15:00 11/01/18 15:01 DC 11/01/18 15:10 1,000 UNIT Hydralazine HCl (Apresoline Inj) 10 mg PRN Q6HRS PRN 10/30/18 18:15 11/02/18 08:07 10 MG Hydralazine HCl (Apresoline) 50 mg TID 10/30/18 21:00 3/7/19 21:20 50 MG Hydromorphone HCl (Dilaudid) 0.5 mg PRN Q10MIN PRN 11/02/18 10:15 11/03/18 10:14 Info (CONTRAST GIVEN -- Rx MONITORING) 1 each PRN DAILY PRN 11/01/18 15:00 11/03/18 14:59 Insulin Glargine (Lantus) 40 units QHS 10/30/18 21:00 11/01/18 23:19 30 UNITS Insulin Human Lispro (HumaLOG) 0-7 UNITS TIDWMEALS 10/30/18 17:00 10/31/18 17:31 4 UNITS Iodixanol (Visipaque 320) 100 ml 1X ONCE 11/01/18 15:00 11/01/18 15:01 DC 11/01/18 15:10 35 ML Lactobacillus Rhamnosus (Culturelle) 1 cap BID 10/31/18 21:00 11/01/18 16:27 DC 11/01/18 15:57 1 CAP Levetiracetam (Keppra) 500 mg BID 10/30/18 21:00 11/01/18 21:19 500 MG Lidocaine HCl (Lidocaine 1% 20ml Vial) 7 ml 1X ONCE 11/01/18 15:00 11/01/18 15:01 DC 11/01/18 15:11 7 ML Lidocaine HCl (Lidocaine Pf 2% Vial) 5 ml STK-MED ONCE 11/02/18 13:21 11/02/18 13:22 DC Lidocaine HCl (Xylocaine-Mpf 1% 2ml Vial) 2 ml 1X PRN PRN 11/02/18 10:15 11/03/18 10:14 Linezolid (Zyvox) 600 mg BID 10/31/18 14:30 10/31/18 21:00 DC 10/31/18 20:48 600 MG Lisinopril (Prinivil) 10 mg DAILY 10/30/18 17:00 11/01/18 15:56 10 MG Loperamide HCl (Imodium) 2 mg PRN Q6HRS PRN 10/31/18 19:00 11/01/18 17:44 2 MG Lorazepam (Ativan) 1 mg 1X ONCE 10/30/18 15:30 10/30/18 15:54 DC 10/30/18 15:50 1 MG Metoclopramide HCl (Reglan) 5 mg TIDAC 10/30/18 16:30 11/01/18 17:16 5 MG Midazolam HCl (Versed) 2 mg STK-MED ONCE 11/02/18 13:23 11/02/18 13:24 DC Morphine Sulfate (Morphine Sulfate) 1 mg PRN Q10MIN PRN 11/02/18 10:15 11/03/18 10:14 Multivitamins (Thera M Plus) 1 tab DAILY 10/31/18 15:00 11/01/18 15:56 1 TAB Mycophenolate Sodium (Myfortic) 180 mg BID 10/30/18 21:00 11/01/18 21:19 180 MG Non-Formulary Medication (Fluconazole (Diflucan)) 1 tab DAILY 10/31/18 09:00 UNV Ondansetron HCl (Zofran) 4 mg STK-MED ONCE 11/02/18 13:21 11/02/18 13:22 DC Pantoprazole Sodium (Protonix) 40 mg DAILY 10/30/18 17:00 11/01/18 15:57 40 MG Piperacillin Sod/ Tazobactam Sod 2.25 gm/Sodium Chloride 50 ml @ 100 mls/hr Q6HRS 10/31/18 14:30 11/02/18 11:56 100 MLS/HR Prednisone (Prednisone) 5 mg DAILY 10/30/18 17:00 11/01/18 15:57 5 MG Propofol 20 ml @ As Directed STK-MED ONCE 11/02/18 13:21 11/02/18 13:22 DC Ringer's Solution 1,000 ml @ 30 mls/hr Q24H 11/02/18 10:06 11/02/18 22:05 Sodium Chloride 1,000 ml @ 100 mls/hr Q10H 11/04/18 18:00 Tacrolimus (Prograf) 0.5 mg QHS 10/30/18 21:00 11/01/18 21:19 0.5 MG Vancomycin HCl 250 ml @ 250 mls/hr 1X ONCE 10/30/18 13:00 10/30/18 13:59 DC 10/30/18 14:53 250 MLS/HR Vitamin B Complex/ Vitamin C (Vicki-Stacey) 1 tab DAILY 10/30/18 17:00 11/01/18 15:56 1 TAB Lab Laboratory Tests Test 11/01/18 16:10 11/01/18 16:30 11/01/18 20:15 11/02/18 04:00 White Blood Count 8.2 x10^3/uL (4.0-11.0) Red Blood Count 4.38 x10^6/uL (3.50-5.40) Hemoglobin 11.1 g/dL (12.0-15.5) Hematocrit 36.1 % (36.0-47.0) Mean Corpuscular Volume 82 fL (79-100) Mean Corpuscular Hemoglobin 25 pg (25-35) Mean Corpuscular Hemoglobin Concent 31 g/dL (31-37) Red Cell Distribution Width 16.2 % (11.5-14.5) Platelet Count 279 x10^3/uL (140-400) Neutrophils (%) (Auto) 74 % (31-73) Lymphocytes (%) (Auto) 14 % (24-48) Monocytes (%) (Auto) 10 % (0-9) Eosinophils (%) (Auto) 2 % (0-3) Basophils (%) (Auto) 0 % (0-3) Neutrophils # (Auto) 6.1 x10^3uL (1.8-7.7) Lymphocytes # (Auto) 1.1 x10^3/uL (1.0-4.8) Monocytes # (Auto) 0.8 x10^3/uL (0.0-1.1) Eosinophils # (Auto) 0.2 x10^3/uL (0.0-0.7) Basophils # (Auto) 0.0 x10^3/uL (0.0-0.2) Prothrombin Time 13.3 SEC (11.7-14.0) Prothromb Time International Ratio 1.0 (0.8-1.1) Glucose (Fingerstick) 74 mg/dL (70-99) 142 mg/dL (70-99) Sodium Level 145 mmol/L (136-145) Potassium Level 4.0 mmol/L (3.5-5.1) Chloride Level 109 mmol/L (98-107) Carbon Dioxide Level 20 mmol/L (21-32) Anion Gap 16 (6-14) Blood Urea Nitrogen 19 mg/dL (7-20) Creatinine 1.5 mg/dL (0.6-1.0) Estimated GFR (Cockcroft-Gault) 42.2 Glucose Level 70 mg/dL (70-99) Calcium Level 9.3 mg/dL (8.5-10.1) Test 11/02/18 07:51 11/02/18 09:09 11/02/18 09:27 11/02/18 09:42 Glucose (Fingerstick) 52 mg/dL (70-99) 44 mg/dL (70-99) 50 mg/dL (70-99) 194 mg/dL (70-99) Test 11/02/18 11:35 Glucose (Fingerstick) 174 mg/dL (70-99) Results All relevant outside records, renal labs, imaging studies, telemetry/EKG's were reviewed. CASS HUITRON MD Nov 02, 2018 13:50
[2018-11-02] MEDS: DAPTOmycin (GENERIC) IVPB 500 MG in IV NORMAL SALINE 50ML 50 ML IV SCH (15:00)
[2018-11-02] MEDS ORDERED: SEVOFLURANE 61 TO 120 MINUTES. IH ONE (15:35)
[2018-11-02] MEDS ORDERED: SEVOFLURANE 31 TO 60 MINUTES. IH ONE (15:36)
[2018-11-02] MEDS ORDERED: 0.9 % SODIUM CHLORIDE 20 ML VIAL. IJ ONE (15:36)
--- NOTE | 2018-11-02 15:48 | PDOC ---
VASCULAR BRIEF OPERATIVE NOTE Date: Nov 02, 2018 Pre-Op Diagnosis digit gangrene left first and second toe tips hypertrophic right heel callus Post-Op Diagnosis same plus pressure ulcer right heel Procedure Performed first and second toe amputation left foot excision of heel callous right Surgeon Sachin Anesthesia Type: General MAGNUS SMITH MD Nov 02, 2018 15:48
--- NOTE | 2018-11-02 16:14 | RAD ---
Indication:VERIFY LINE PLCM. TECHNIQUE:Portable AP chest X-ray COMPARISON:None FINDINGS: CABG changes noted. Right IJ catheter is seen with its tip in the right atrium. Bilateral interstitial opacities are seen. No focal consolidation. Heart is normal in size. Lungs are clear. No pneumothorax or pleural effusion. Visualized bony thorax is within normal limits. IMPRESSION: Tip of the right IJ catheter is in the right atrium. Consider withdrawing by approximately 2 cm. Electronically signed by: Arnoldo Todd DO (11/02/2018 4:11 PM) [id number]
[2018-11-02] MEDS: PANTOPRAZOLE 40 MG TABLET.DR. PO SCH (16:54)
[2018-11-02] MEDS: ASPIRIN 325 MG TABLET PO SCH (16:54)
[2018-11-02] MEDS: FLUCONAZOLE 100 MG TABLET. PO SCH (16:55)
[2018-11-02] MEDS: predniSONE 5 MG TABLET PO SCH (16:55)
[2018-11-02] MEDS: FOLIC/VIT B COMP W-C (RENAL) TABLET. PO SCH (16:55)
[2018-11-02] MEDS: MULTIVITAMIN with MINERAL TABLET. PO SCH (16:55)
[2018-11-02] MEDS: FERROUS SULFATE 325 MG TABLET. PO SCH (16:55)
--- NOTE | 2018-11-02 17:03 | OP ---
DATE OF SURGERY: 11/02/2018 PREOPERATIVE DIAGNOSIS: Gangrene digit tips of #1 and #2 of the left foot as well as hypertrophic callus overlying an ulcerated pressure sore on the plantar surface of the right heel. PROCEDURE PERFORMED: 1. Primary digit amputation of #1 and #2 of the left foot with primary closure. 2. Excision of right heel callus. INDICATIONS: This is a 63-year-old female admitted to the hospital with gangrene of the toe tips on the left foot. She underwent arteriographic evaluation and intervention yesterday, which significantly improved her forefoot perfusion. She was brought to the operating room today for digit amputation. In addition, the patient has a hypertrophic callus, which is painful on the plantar surface of the right heel. This was excised and at the base of this callus, there was a small 2 mm ulceration with some exudate at the base, but it did not penetrate to the bone. DESCRIPTION OF PROCEDURE: The patient was given general anesthetic. Central line was placed as well. Prepped and draped in a sterile fashion. Transverse incisions were placed at the mid portion of the phalanx of the first and second toe. Soft tissues were divided sharply. There was excellent bleeding. The bone was transected and proximal bone was removed with a rongeur. The wounds were closed with interrupted 3-0 nylon sutures. Attention was then directed at the third toe of the left foot where there was some callus buildup on the digit tip here as well. This was sharply excised. There was no ulceration beneath this. Attention was then directed at the right heel where the significantly thick heel callus was excised with a #10 blade. Once all callus had been removed. There was a small central ulceration measuring about 8 mm in diameter and 3 mm in depth. There was some pale exudate at the base of this wound, which was debrided with a curette and an Aquacel AG dressing was placed over the top of this. The patient moved from the operating room to recovery in satisfactory stable condition. MAGNUS SMITH MD DR: TEJAS/jeanie JOB#: [id number] / [id number]
[2018-11-02] MEDS: TACROLIMUS 0.5 MG CAPSULE PO SCH (22:13)
[2018-11-02] MEDS: ATORVASTATIN CALCIUM 40 MG TABLET. PO SCH (22:14)
[2018-11-02] MEDS: INSULIN GLARGINE 300 UNITS/3 ML INSULN.PEN. SQ SCH (22:20)
[2018-11-03] MEDS: PIPERACILLIN/TAZOBACTAM 2.25 GM in IV NORMAL SALINE 50ML 50 ML IV SCH ×4 (00:45→17:47)
[2018-11-03] MEDS: ALPRAZolam 0.25 MG TABLET PO PRN (01:28)
[2018-11-03 02:35] VITALS: BP 105/43
[2018-11-03 05:08] LABS: CALCIUM 9.3 mg/dL (8.5-10.1); CREATININE 1.5 mg/dL (0.6-1.0); GFR 42.2; POTASSIUM 3.9 mmol/L (3.5-5.1)
[2018-11-03 07:56] VITALS: BP 155/58
[2018-11-03] MEDS: MULTIVITAMIN with MINERAL TABLET. PO SCH (08:03)
[2018-11-03] MEDS: BISACODYL 5 MG TABLET.DR. PO SCH (08:04)
[2018-11-03] MEDS: ASPIRIN 325 MG TABLET PO SCH (08:05)
[2018-11-03] MEDS: FOLIC/VIT B COMP W-C (RENAL) TABLET. PO SCH (08:05)
[2018-11-03] MEDS: LISINOPRIL 10 MG TABLET PO SCH (08:05)
[2018-11-03] MEDS: FERROUS SULFATE 325 MG TABLET. PO SCH (08:05)
[2018-11-03] MEDS: predniSONE 5 MG TABLET PO SCH (08:05)
[2018-11-03] MEDS: MYCOPHENOLATE ACID 180 MG TABLET.DR. PO SCH ×2 (08:06→21:33)
[2018-11-03] MEDS: CARVEDILOL 6.25 MG TABLET. PO SCH ×2 (08:06→16:55)
[2018-11-03] MEDS: levETIRAcetam 500 MG TABLET PO SCH ×2 (08:06→21:34)
[2018-11-03] MEDS: METOCLOPRAMIDE 5 MG TABLET. PO SCH ×3 (08:07→16:54)
[2018-11-03] MEDS: PANTOPRAZOLE 40 MG TABLET.DR. PO SCH (08:07)
[2018-11-03] MEDS: FUROSEMIDE 40 MG TABLET. PO SCH (08:07)
[2018-11-03] MEDS: FLUCONAZOLE 100 MG TABLET. PO SCH (08:07)
[2018-11-03] MEDS: IV NORMAL SALINE 1000ML BAG 1,000 ML IV SCH (08:08)
[2018-11-03] MEDS: INSULIN LISPRO 300 UNITS/3 ML INSULN.PEN. SQ SCH ×6 (08:22→17:04)
--- NOTE | 2018-11-03 08:31 | PDOC ---
SUBJECTIVE ROS s/p first and second toe amputation left foot excision of heel callous right Stable, no complaints this am OBJECTIVE Vital Signs Vital Signs Date Time Temp Pulse Resp B/P (MAP) Pulse Ox O2 Delivery O2 Flow Rate FiO2 11/03/18 08:06 84 155/58 11/03/18 07:56 97.6 16 96 Room Air 97.6 11/02/18 16:15 8 I & 0 Intake and Output 11/03/18 07:00 Intake Total 1700 ml Output Total 425 ml Balance 1275 ml Intake Oral 300 ml IV Total 1400 ml Output Urine Total 425 ml # Voids 5 PHYSICAL EXAM Physical Exam GENERAL: NAD, HEENT- OM moist NECK: Supple CV: RRR LUNGS: CTA ABDOMEN: Obese, soft, No Tenderness over Renal Transplant, No bruit EXTREMITIES: left forearm AV shunt with a palpable thrill. Feet wrapped in dressing Gu No vences Skin No rash Neuro- AXOX3 DIAGNOSIS/ASSESSMENT Assessment & Plan Renal Transplant- Follows with Dr. Quinn at [facility] [place] Cellcept and Tacrolimus, continue home dose CKD stage 3- Stable, baseline Cr 1.4-1.7 Intermittent AK Discussed risk of KUSUM with patienti Bilateral toe gangrene. s/p angiogram as per vascular doppler legs dec circulation below the knees s/p first and second toe amputation left foot excision of heel callous right 11/02 DM - as per primary HTN- Antihypertensive Anemia- Hb stable COMMENT/RELEVANT DATA Meds Current Medications Medications (Trade) Dose Ordered Sig/Te Start Time Stop Time Status Last Admin Dose Admin Acetaminophen/ Hydrocodone Bitart (Lortab 7.5/325) 1 tab PRN Q4HRS PRN 10/30/18 15:15 11/03/18 01:29 1 TAB Alprazolam (Xanax) 0.25 mg PRN BID PRN 10/30/18 15:15 11/03/18 01:28 0.25 MG Aspirin (Gurwinder Aspirin) 325 mg DAILY 10/30/18 17:00 11/03/18 08:05 325 MG Atorvastatin Calcium (Lipitor) 80 mg QHS 10/30/18 21:00 11/02/18 22:14 80 MG Bisacodyl (Dulcolax Tab) 20 mg DAILY 10/31/18 09:00 11/03/18 08:04 20 MG Carvedilol (Coreg) 12.5 mg BIDWMEALS 10/30/18 17:00 11/03/18 08:06 12.5 MG Cefazolin Sodium 1 gm/Dextrose 50 ml @ 100 mls/hr Q8HRS 10/30/18 22:00 10/31/18 13:59 DC 10/31/18 06:21 100 MLS/HR Cefazolin Sodium/ Dextrose 50 ml @ 100 mls/hr 1X ONCE 10/30/18 13:00 10/30/18 13:29 DC 10/30/18 13:01 100 MLS/HR Daptomycin 500 mg/ Sodium Chloride 50 ml @ 100 mls/hr Q24H 10/31/18 15:00 11/01/18 16:14 100 MLS/HR Dexamethasone Sodium Phosphate (Decadron) 20 mg STK-MED ONCE 11/02/18 13:21 11/02/18 13:22 DC Dextrose (Dextrose 50%-Water Syringe) 12.5 gm PRN Q15MIN PRN 10/30/18 15:15 11/02/18 09:10 12.5 GM Ephedrine Sulfate (Akovaz) 50 mg STK-MED ONCE 11/02/18 15:03 11/02/18 15:04 DC Famotidine (Pepcid Vial) 20 mg STK-MED ONCE 11/02/18 13:21 11/02/18 13:22 DC Fentanyl Citrate (Fentanyl 2ml Vial) 100 mcg STK-MED ONCE 11/02/18 13:23 11/02/18 13:24 DC Ferrous Sulfate (Feosol) 325 mg DAILY 10/30/18 17:00 11/03/18 08:05 325 MG Fluconazole (Diflucan) 200 mg DAILY 10/31/18 09:00 11/03/18 08:07 200 MG Furosemide (Lasix) 40 mg DAILY 10/30/18 17:00 11/03/18 08:07 40 MG Heparin Sodium (Porcine) (Heparin Sodium) 5,000 unit Q12HR 10/30/18 21:00 11/01/18 10:18 DC 10/31/18 20:50 5,000 UNIT Heparin Sodium/ Sodium Chloride (HEPARIN for ARTERIAL LINE FLUSH) 1,000 unit 1X ONCE 11/01/18 15:00 11/01/18 15:01 DC 11/01/18 15:10 1,000 UNIT Hydralazine HCl (Apresoline Inj) 10 mg PRN Q6HRS PRN 10/30/18 18:15 11/02/18 08:07 10 MG Hydralazine HCl (Apresoline) 50 mg TID 10/30/18 21:00 11/03/18 08:05 50 MG Hydromorphone HCl (Dilaudid) 0.5 mg PRN Q10MIN PRN 11/02/18 10:15 11/02/18 18:00 DC Info (CONTRAST GIVEN -- Rx MONITORING) 1 each PRN DAILY PRN 11/01/18 15:00 11/03/18 14:59 Insulin Glargine (Lantus) 40 units QHS 10/30/18 21:00 11/02/18 22:20 40 UNITS Insulin Human Lispro (HumaLOG) 0-7 UNITS TIDWMEALS 10/30/18 17:00 11/03/18 08:22 4 UNITS Iodixanol (Visipaque 320) 100 ml 1X ONCE 11/01/18 15:00 11/01/18 15:01 DC 11/01/18 15:10 35 ML Lactobacillus Rhamnosus (Culturelle) 1 cap BID 10/31/18 21:00 11/01/18 16:27 DC 11/01/18 15:57 1 CAP Levetiracetam (Keppra) 500 mg BID 10/30/18 21:00 11/03/18 08:06 500 MG Lidocaine HCl (Lidocaine 1% 20ml Vial) 7 ml 1X ONCE 11/01/18 15:00 11/01/18 15:01 DC 11/01/18 15:11 7 ML Lidocaine HCl (Lidocaine Pf 2% Vial) 5 ml STK-MED ONCE 11/02/18 13:21 11/02/18 13:22 DC Lidocaine HCl (Xylocaine-Mpf 1% 2ml Vial) 2 ml 1X PRN PRN 11/02/18 10:15 11/02/18 18:00 DC Linezolid (Zyvox) 600 mg BID 10/31/18 14:30 10/31/18 21:00 DC 10/31/18 20:48 600 MG Lisinopril (Prinivil) 10 mg DAILY 10/30/18 17:00 11/03/18 08:05 10 MG Loperamide HCl (Imodium) 2 mg PRN Q6HRS PRN 10/31/18 19:00 11/01/18 17:44 2 MG Lorazepam (Ativan) 1 mg 1X ONCE 10/30/18 15:30 10/30/18 15:54 DC 10/30/18 15:50 1 MG Metoclopramide HCl (Reglan) 5 mg TIDAC 10/30/18 16:30 11/03/18 08:07 5 MG Midazolam HCl (Versed) 2 mg STK-MED ONCE 11/02/18 13:23 11/02/18 13:24 DC Morphine Sulfate (Morphine Sulfate) 1 mg PRN Q10MIN PRN 11/02/18 10:15 11/02/18 18:00 DC Multivitamins (Thera M Plus) 1 tab DAILY 10/31/18 15:00 11/03/18 08:03 1 TAB Mycophenolate Sodium (Myfortic) 180 mg BID 10/30/18 21:00 11/03/18 08:06 180 MG Non-Formulary Medication (Fluconazole (Diflucan)) 1 tab DAILY 10/31/18 09:00 UNV Ondansetron HCl (Zofran) 4 mg STK-MED ONCE 11/02/18 13:21 11/02/18 13:22 DC Pantoprazole Sodium (Protonix) 40 mg DAILY 10/30/18 17:00 11/03/18 08:07 40 MG Piperacillin Sod/ Tazobactam Sod 2.25 gm/Sodium Chloride 50 ml @ 100 mls/hr Q6HRS 10/31/18 14:30 11/03/18 05:29 100 MLS/HR Prednisone (Prednisone) 5 mg DAILY 10/30/18 17:00 11/03/18 08:05 5 MG Propofol 0 ml @ As Directed STK-MED ONCE 11/02/18 13:21 11/02/18 13:22 DC Ringer's Solution 1,000 ml @ 30 mls/hr Q24H 11/02/18 10:06 11/02/18 18:00 DC Sevoflurane (Ultane) 30 ml STK-MED ONCE 11/02/18 15:36 11/02/18 15:37 DC Sodium Chloride (SODIUM CHLORIDE 20ml) 20 ml STK-MED ONCE 11/02/18 15:36 11/02/18 15:37 DC Tacrolimus (Prograf) 0.5 mg QHS 10/30/18 21:00 11/02/18 22:13 0.5 MG Vancomycin HCl 250 ml @ 250 mls/hr 1X ONCE 10/30/18 13:00 10/30/18 13:59 DC 10/30/18 14:53 250 MLS/HR Vitamin B Complex/ Vitamin C (Vicki-Stacey) 1 tab DAILY 10/30/18 17:00 11/03/18 08:05 1 TAB Lab Laboratory Tests Test 11/02/18 09:09 11/02/18 09:27 11/02/18 09:42 11/02/18 11:35 Glucose (Fingerstick) 44 mg/dL (70-99) 50 mg/dL (70-99) 194 mg/dL (70-99) 174 mg/dL (70-99) Test 11/02/18 13:54 11/02/18 16:23 11/02/18 17:25 11/02/18 20:10 Glucose (Fingerstick) 153 mg/dL (70-99) 158 mg/dL (70-99) 150 mg/dL (70-99) 204 mg/dL (70-99) Test 11/03/18 04:05 11/03/18 07:45 Sodium Level 140 mmol/L (136-145) Potassium Level 3.9 mmol/L (3.5-5.1) Chloride Level 106 mmol/L (98-107) Carbon Dioxide Level 20 mmol/L (21-32) Anion Gap 14 (6-14) Blood Urea Nitrogen 20 mg/dL (7-20) Creatinine 1.5 mg/dL (0.6-1.0) Estimated GFR (Cockcroft-Gault) 42.2 Glucose Level 307 mg/dL (70-99) Calcium Level 9.3 mg/dL (8.5-10.1) Glucose (Fingerstick) 227 mg/dL (70-99) Results All relevant outside records, renal labs, imaging studies, telemetry/EKG's were reviewed. CASS HUITRON MD Nov 03, 2018 08:31
--- NOTE | 2018-11-03 09:45 | PDOC ---
Infectious Disease Note Subjective Subjective Feeling alright this morning Eating Denies F/C/N/V/D/pain/SOA ROS ROS per HPI Vital Sign Vital Signs Vital Signs Date Time Temp Pulse Resp B/P (MAP) Pulse Ox O2 Delivery O2 Flow Rate FiO2 11/03/18 08:06 84 155/58 11/03/18 07:56 97.6 16 96 Room Air 97.6 11/02/18 16:15 8 Physical Exam PHYSICAL EXAM GENERAL: Sitting in the chair, alert, eating HEENT: Oral mucosa moist. Edentulous NECK: Supple. LUNGS: Clear bilaterally. No wheezing. HEART: S1, S2 with no gallops or murmurs. ABDOMEN: Soft, nontender EXTREMITIES: Feet are both bandaged CENTRAL NERVOUS SYSTEM: Alert and oriented x 3. Grossly nonfocal. PSYCHIATRIC: Cooperative, appropriate mood and affect. DERMATOLOGIC: Warm, dry. No generalized rash. RIJ without signs of any complications Labs Lab Laboratory Tests Test 11/02/18 09:42 11/02/18 11:35 11/02/18 13:54 11/02/18 16:23 Glucose (Fingerstick) 194 mg/dL (70-99) 174 mg/dL (70-99) 153 mg/dL (70-99) 158 mg/dL (70-99) Test 11/02/18 17:25 11/02/18 20:10 11/03/18 04:05 11/03/18 07:45 Glucose (Fingerstick) 150 mg/dL (70-99) 204 mg/dL (70-99) 227 mg/dL (70-99) Sodium Level 140 mmol/L (136-145) Potassium Level 3.9 mmol/L (3.5-5.1) Chloride Level 106 mmol/L (98-107) Carbon Dioxide Level 20 mmol/L (21-32) Anion Gap 14 (6-14) Blood Urea Nitrogen 20 mg/dL (7-20) Creatinine 1.5 mg/dL (0.6-1.0) Estimated GFR (Cockcroft-Gault) 42.2 Glucose Level 307 mg/dL (70-99) Calcium Level 9.3 mg/dL (8.5-10.1) Micro FOOT ANAEROBIC-AEROBIC CULTURE PENDING ANAEROBIC RES 1 PENDING AEROBIC CULT Preliminary Preliminary report AEROBIC RES 1 Preliminary Comment Coagulase negative Staphylococcus species. 10/30. BLD CULT RESULT 1 Preliminary Staphylococcus aureus Objective Assessment Bacteremia, Staph aureus, 10/30. Left toes with gangrene, s/p angio, 11/01. s/p 1st and 2nd toe amputation, primary closure on 11/02. CoNS Right heel callus s/p excision on 11/02. Peripheral arterial disease.s/p angiogram, awaiting right SFA atherectomy/ angioplasty on Monday Chronic kidney disease, status post renal transplant. 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 Pt was on chronic suppressive fluconazole, though I did seen on the list from the [place] Acute kidney injury with chronic kidney disease. Hypertension. Coronary artery disease. Diabetes. RUE swelling, RUE US neg DVT Plan Plan of Care Dapto, Zosyn and fluconazole cryptococcal ag pending F/u BC susceptibilities. repeat BC echo elevate RUE Wound care treatment. Supportive care. Patient seen, examined, I agree with above. Assessment and plan was coformulated with INTAKE CLERK. DIAZ DARLING APRN Nov 03, 2018 09:45 LINDY LANDON MD Nov 03, 2018 15:28
[2018-11-03 11:02] VITALS: BP 156/70
[2018-11-03 11:06] LABS: BASO % 0 % (0-3); EOS % 0 % (0-3); HEMATOCRIT 32.6 % (36.0-47.0); LYMPH # 0.7 x10^3/uL (1.0-4.8); LYMPH % 5 % (24-48); MEAN CORPUSCULAR HEMOGLOBIN 25 pg (25-35); MEAN CORPUSCULAR HGB CONC 31 g/dL (31-37); MEAN CORPUSCULAR VOLUME 82 fL (79-100); MONO # 0.8 x10^3/uL (0.0-1.1); MONO % 6 % (0-9); NEUT # 11.2 x10^3uL (1.8-7.7); NEUT % 88 % (31-73); PLATELET COUNT 283 x10^3/uL (140-400); RED BLOOD COUNT 3.97 x10^6/uL (3.50-5.40); RED CELL DISTRIBUTION WIDTH 16.1 % (11.5-14.5); WHITE BLOOD COUNT 12.7 x10^3/uL (4.0-11.0)
--- NOTE | 2018-11-03 11:37 | PDOC ---
PROGRESS NOTES Subjective Subjective feel s better ,had surgery yesterday Objective Objective Vital Signs Date Time Temp Pulse Resp B/P (MAP) Pulse Ox O2 Delivery O2 Flow Rate FiO2 11/03/18 11:02 97.5 81 18 156/70 (98) 98 Room Air 97.5 11/02/18 16:15 8 Intake and Output 11/03/18 07:00 Intake Total 1700 ml Output Total 425 ml Balance 1275 ml Intake Oral 300 ml IV Total 1400 ml Output Urine Total 425 ml # Voids 5 Physical Exam Abdomen: Normal bowel sounds, Soft, Other (obese, healed midline scar) Heart: Regular rate, Normal S1, Normal S2 Extremities: Other General: Alert, Cooperative Lungs: Clear to auscultation MUSCULOSKELETAL: No swelling Neck: Supple Neuro: Normal speech Psych/Mental Status: Mood NL COMMENT dressings s/p toe amputations Diagnosis Problem List Problems Medical Problems: (1) Anxiety Status: Acute (2) Dementia Status: Acute (3) Diabetic foot ulcers Status: Acute (4) Hyperglycemia Status: Acute (5) Uncontrolled diabetes mellitus Status: Acute Assessment Assessment Problems Medical Problems: (1) Anxiety Status: Acute (2) Dementia Status: Acute (3) Diabetic foot ulcers Status: Acute (4) Hyperglycemia Status: Acute (5) Uncontrolled diabetes mellitus Status: Acute FINAL IMPRESSION: 1. 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 2. Peripheral vascular disease, severe. 3. Insulin-dependent diabetes. 4. Chronic kidney disease, history of kidney transplant. 5. History of immunosuppression. 6. History of disseminated cryptococcal disease. 7. History of seizures. 8. History of previous stroke. 9. Bypass surgery.CABG 10. Chronic systolic heart failure, ejection fraction around 40. 11.Lung Nodule ,benign on CT scan PLAN: POD#1, lt foot 1,2 toe amputation, rt heal debridement Arteriogram done 11/01/18 doppler legs dec circulation below the knees. d/c iv hydration .cr1.5 stable iv antibiotics.Dapto+Zosyn blood c/s 1 in 4 bottles positive . wound c/s pending, gram positive rt arm blisters from iv infiltration. venous doppler neg for blood clots . spoke with pts daughter. Plan Plan of Care Problems Medical Problems: (1) Anxiety Status: Acute (2) Dementia Status: Acute (3) Diabetic foot ulcers Status: Acute (4) Hyperglycemia Status: Acute (5) Uncontrolled diabetes mellitus Status: Acute Comment Review of Relevant I have reviewed the following items warner (where applicable) has been applied. Labs Laboratory Tests Test 11/02/18 11:35 11/02/18 13:54 11/02/18 16:23 11/02/18 17:25 Glucose (Fingerstick) 174 mg/dL (70-99) 153 mg/dL (70-99) 158 mg/dL (70-99) 150 mg/dL (70-99) Test 11/02/18 20:10 11/03/18 04:05 11/03/18 07:45 11/03/18 10:50 Glucose (Fingerstick) 204 mg/dL (70-99) 227 mg/dL (70-99) Sodium Level 140 mmol/L (136-145) Potassium Level 3.9 mmol/L (3.5-5.1) Chloride Level 106 mmol/L (98-107) Carbon Dioxide Level 20 mmol/L (21-32) Anion Gap 14 (6-14) Blood Urea Nitrogen 20 mg/dL (7-20) Creatinine 1.5 mg/dL (0.6-1.0) Estimated GFR (Cockcroft-Gault) 42.2 Glucose Level 307 mg/dL (70-99) Calcium Level 9.3 mg/dL (8.5-10.1) White Blood Count 12.7 x10^3/uL (4.0-11.0) Red Blood Count 3.97 x10^6/uL (3.50-5.40) Hemoglobin 10.0 g/dL (12.0-15.5) Hematocrit 32.6 % (36.0-47.0) Mean Corpuscular Volume 82 fL (79-100) Mean Corpuscular Hemoglobin 25 pg (25-35) Mean Corpuscular Hemoglobin Concent 31 g/dL (31-37) Red Cell Distribution Width 16.1 % (11.5-14.5) Platelet Count 283 x10^3/uL (140-400) Neutrophils (%) (Auto) 88 % (31-73) Lymphocytes (%) (Auto) 5 % (24-48) Monocytes (%) (Auto) 6 % (0-9) Eosinophils (%) (Auto) 0 % (0-3) Basophils (%) (Auto) 0 % (0-3) Neutrophils # (Auto) 11.2 x10^3uL (1.8-7.7) Lymphocytes # (Auto) 0.7 x10^3/uL (1.0-4.8) Monocytes # (Auto) 0.8 x10^3/uL (0.0-1.1) Eosinophils # (Auto) 0.0 x10^3/uL (0.0-0.7) Basophils # (Auto) 0.0 x10^3/uL (0.0-0.2) Microbiology 10/30/18 Blood Culture - Preliminary, Resulted 10/30/18 Blood Culture Result 1 (LYN) - Preliminary, Resulted 10/31/18 Anaerobic/Aerobic Culture, Resulted Pending 10/31/18 Anaerobic Culture Result 1 (LYN), Resulted Pending 10/31/18 Aerobic Culture - Preliminary, Resulted 10/31/18 Aerobic Culture Result 1 (LYN) - Preliminary, Resulted 10/31/18 Gram Stain - Final, Resulted 10/31/18 Gram Stain Result 1 (LYN) - Final, Resulted 10/31/18 Gram Stain Result 2 (LYN) - Final, Resulted Medications Current Medications Dexamethasone Sodium Phosphate (Decadron) 20 mg STK-MED ONCE .ROUTE ; Start 11/02 at 13:21; Stop 11/02/18 at 13:22; Status DC Ephedrine Sulfate (Akovaz) 50 mg STK-MED ONCE .ROUTE ; Start 11/02/18 at 15:03; Stop 11/02/18 at 15:04; Status DC Famotidine (Pepcid Vial) 20 mg STK-MED ONCE .ROUTE ; Start 11/02/18 at 13:21; Stop 11/02/18 at 13:22; Status DC Fentanyl Citrate (Fentanyl 2ml Vial) 100 mcg STK-MED ONCE .ROUTE ; Start at 13:23; Stop 11/02/18 at 13:24; Status DC Lidocaine HCl (Lidocaine Pf 2% Vial) 5 ml STK-MED ONCE .ROUTE ; Start 11/02/18 at 13:21; Stop 11/02/18 at 13:22; Status DC Midazolam HCl (Versed) 2 mg STK-MED ONCE .ROUTE ; Start 11/02/18 at 13:23; Stop 11/02/18 at 13:24; Status DC Ondansetron HCl (Zofran) 4 mg STK-MED ONCE .ROUTE ; Start 11/02/18 at 13:21; Stop 11/02/18 at 13:22; Status DC Propofol 0 ml @ As Directed STK-MED ONCE IV ; Start 11/02/18 at 13:21; Stop at 13:22; Status DC Sevoflurane (Ultane) 30 ml STK-MED ONCE IH ; Start 11/02/18 at 15:36; Stop at 15:37; Status DC Sevoflurane (Ultane) 60 ml STK-MED ONCE IH ; Start 11/02/18 at 15:35; Stop at 15:36; Status DC Sodium Chloride 1,000 ml @ 100 mls/hr Q10H IV ; Start 11/04/18 at 18:00; Stop 11/04/18 at 18:00; Status DC Sodium Chloride (SODIUM CHLORIDE 20ml) 20 ml STK-MED ONCE IJ ; Start 11/02/18 at 15:36; Stop 11/02/18 at 15:37; Status DC Vitals/I & O Vital Sign - Last 24 Hours 11/02/18 11/02/18 11/02/18 11/02/18 13:44 15:43 15:43 16:00 Temp 98.4 97.5 97.5 98.4 97.5 97.5 Pulse 81 102 100 Resp 14 24 25 B/P (MAP) 145/63 128/59 147/60 Pulse Ox 100 97 96 O2 Delivery Room Air Mask Simple Mask Room Air O2 Flow Rate 8 8 11/02/18 11/02/18 11/02/18 11/02/18 16:15 16:45 17:00 17:00 Temp 97.5 97.5 Pulse 100 98 97 Resp 21 18 18 B/P (MAP) 139/39 102/37 (58) 102/37 103/46 (65) Pulse Ox 96 95 98 O2 Delivery Room Air Room Air Room Air O2 Flow Rate 8 11/02/18 11/02/18 11/02/18 11/02/18 17:15 19:00 20:15 22:42 Temp 99.1 97.6 99.1 97.6 Pulse 96 95 95 Resp 18 18 19 B/P (MAP) 103/46 (65) 96/36 (56) 102/38 (59) Pulse Ox 97 97 O2 Delivery Room Air Room Air Room Air Room Air 11/02/18 11/03/18 11/03/18 11/03/18 23:26 01:29 02:35 02:49 Temp 97.9 97.9 Pulse 94 Resp 18 17 18 B/P (MAP) 105/43 (63) Pulse Ox 97 97 97 O2 Delivery Room Air Room Air Room Air Room Air 11/03/18 11/03/18 11/03/18 11/03/18 07:56 08:00 08:05 08:05 Temp 97.6 97.6 Pulse 84 84 84 Resp 16 B/P (MAP) 155/58 (90) 155/58 155/58 Pulse Ox 96 O2 Delivery Room Air Room Air 11/03/18 11/03/18 08:06 11:02 Temp 97.5 97.5 Pulse 84 81 Resp 18 B/P (MAP) 155/58 156/70 (98) Pulse Ox 98 O2 Delivery Room Air Intake and Output 11/02/18 11/02/18 11/03/18 15:00 23:00 07:00 Intake Total 400 ml 1300 ml Output Total 425 ml Balance -25 ml 1300 ml AUGUSTO BRUNER MD Nov 03, 2018 11:37
[2018-11-03 13:06] LABS: % BANDS 3 % (0-9); % EOS 1 % (0-5); % LYMPHS 7 % (24-48); % MONOS 6 % (0-10); % SEGS 83 % (35-66); PLT ESTIMATE ADEQUATE (ADEQUATE)
[2018-11-03 15:26] VITALS: BP 116/47
[2018-11-03] MEDS: DAPTOmycin (GENERIC) IVPB 500 MG in IV NORMAL SALINE 50ML 50 ML IV SCH (15:28)
[2018-11-03 19:40] VITALS: BP 106/31
--- NOTE | 2018-11-03 21:20 | NUR ---
At time of hs med pass, patient asked what was itching her neck, had hand up by R central line. Pt has pulled out R central line. Tip intact, scant bleeding noted on gown. Sutures removed and dressing applied to R neck. Pt is oriented to person only. Attempted to reorient patient with little success at this time. Due to Left sided old fistula and R forearm blisters from previous infiltrated infusion, IV access was obtained in R shoulder, just superior to the axilla. This PIV site was reinforced with dry gauze and paper tape to help prevent from future attempts at pulling lines.
[2018-11-03] MEDS: ATORVASTATIN CALCIUM 40 MG TABLET. PO SCH (21:33)
[2018-11-03] MEDS: TACROLIMUS 0.5 MG CAPSULE PO SCH (21:33)
[2018-11-03] MEDS: INSULIN GLARGINE 300 UNITS/3 ML INSULN.PEN. SQ SCH (21:36)
[2018-11-03 23:28] VITALS: BP 97/44
[2018-11-04] VITALS (7 sets, daily range): BP systolic 86–151; BP diastolic 36–79
[2018-11-04] MEDS: PIPERACILLIN/TAZOBACTAM 2.25 GM in IV NORMAL SALINE 50ML 50 ML IV SCH ×4 (00:12→17:52)
--- NOTE | 2018-11-04 07:10 | NUR ---
I have reviewed the notes, assessment, and /or procedures preformed by Yaima Durant nursing project coordinator and concur with her documentation unless otherwise noted.
[2018-11-04] MEDS: CARVEDILOL 6.25 MG TABLET. PO SCH ×2 (07:50→17:00)
[2018-11-04] MEDS: LISINOPRIL 10 MG TABLET PO SCH (07:51)
[2018-11-04] MEDS: FUROSEMIDE 40 MG TABLET. PO SCH (07:51)
[2018-11-04] MEDS: INSULIN LISPRO 300 UNITS/3 ML INSULN.PEN. SQ SCH ×6 (07:52→17:50)
[2018-11-04] MEDS: FERROUS SULFATE 325 MG TABLET. PO SCH (08:41)
[2018-11-04] MEDS: predniSONE 5 MG TABLET PO SCH (08:41)
[2018-11-04] MEDS: BISACODYL 5 MG TABLET.DR. PO SCH (08:41)
[2018-11-04] MEDS: FLUCONAZOLE 100 MG TABLET. PO SCH (08:41)
[2018-11-04] MEDS: MULTIVITAMIN with MINERAL TABLET. PO SCH (08:42)
[2018-11-04] MEDS: MYCOPHENOLATE ACID 180 MG TABLET.DR. PO SCH ×2 (08:42→21:08)
[2018-11-04] MEDS: ASPIRIN 325 MG TABLET PO SCH (08:42)
[2018-11-04] MEDS: levETIRAcetam 500 MG TABLET PO SCH ×2 (08:42→21:08)
[2018-11-04] MEDS: FOLIC/VIT B COMP W-C (RENAL) TABLET. PO SCH (08:42)
[2018-11-04] MEDS: METOCLOPRAMIDE 5 MG TABLET. PO SCH ×3 (08:42→17:41)
[2018-11-04] MEDS: PANTOPRAZOLE 40 MG TABLET.DR. PO SCH (08:43)
--- NOTE | 2018-11-04 10:54 | NUR ---
Patient just had surgery on Monday, wound dressings not changed-vascular doctor will do first change after surgery. No orders placed that would indicate otherwise.
--- NOTE | 2018-11-04 11:00 | NUR ---
Patient blood pressure low this morning 86/36, non symptomatic. Rechecked one hour later to be 99/45, blood pressure medications held.
--- NOTE | 2018-11-04 11:27 | PDOC ---
Infectious Disease Note Subjective Subjective Pulled RIJ out Comfortable, denies pain Says RUE less tight Denies F/C/N/V/D/pain/SOA ROS ROS per HPI Vital Sign Vital Signs Vital Signs Date Time Temp Pulse Resp B/P (MAP) Pulse Ox O2 Delivery O2 Flow Rate FiO2 11/04/18 08:56 77 99/45 (63) 11/04/18 08:00 Room Air 11/04/18 07:00 98.7 18 99 98.7 Physical Exam PHYSICAL EXAM GENERAL: Lying down, alert, NAD HEENT: Oral mucosa moist. Edentulous NECK: Supple. LUNGS: Clear bilaterally. No wheezing. HEART: S1, S2 with no gallops or murmurs. ABDOMEN: Soft, nontender EXTREMITIES: RUE less swollen, + blisters, forearm bandaged and both feet are bandaged,(post-op) MATERIALS TECH: Alert and oriented x 3. Grossly nonfocal. SKIN: without rash RIJ without signs of any complications, out PIV ok Labs Lab Laboratory Tests Test 11/03/18 11:36 11/03/18 16:49 11/03/18 20:43 11/04/18 07:48 Glucose (Fingerstick) 260 mg/dL (70-99) 191 mg/dL (70-99) 202 mg/dL (70-99) 128 mg/dL (70-99) Micro Foot ANAEROBIC RES 1 PENDING AEROBIC RES 1 Final Coagulase negative Staphylococcus species. MICS are expressed in micrograms per mL Antibiotic RSLT#1 Ciprofloxacin R =4 Clindamycin S<=0.25 Erythromycin S<=0.25 Gentamicin S<=0.5 Levofloxacin R>=8 Oxacillin S<=0.25 Penicillin R =0.25 Rifampin S<=0.5 Tetracycline R>=16 Trimethoprim/Sulfa S<=10 Vancomycin S =1 10/30. BLD CULT RESULT 1 Final Staphylococcus aureus MICS are expressed in micrograms per mL Antibiotic RSLT#1 Ciprofloxacin R>=8 Gentamicin S<=0.5 Levofloxacin R>=8 Linezolid S =2 Moxifloxacin R =4 Nitrofurantoin S<=16 Oxacillin S<=0.25 Penicillin R =0.25 Quinupristin/Dalfopristin S<=0.25 Rifampin S<=0.5 Tetracycline R>=16 Trimethoprim/Sulfa S<=10 Vancomycin S<=0.5 11/03. BLOOD CULTURE Preliminary NO GROWTH AFTER 1 DAY Objective Assessment Bacteremia, MSSA 10/30. repeat BC 11/03 NGTD Left toes with gangrene, s/p angio, 11/01. s/p 1st and 2nd toe amputation, primary closure on 11/02. CoNS-oxacillin sensitive Right heel callus s/p excision on 11/02. Peripheral arterial disease.s/p angiogram, awaiting right SFA atherectomy/ angioplasty on Monday Chronic kidney disease, status post renal transplant. 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 Pt was on chronic suppressive fluconazole, though not seen on list from the [place] Acute kidney injury with chronic kidney disease. Hypertension. Coronary artery disease. Diabetes. RUE swelling, RUE US neg DVT - improving Plan Plan of Care d/c Dapto Continue Zosyn for now Cont fluconazole cryptococcal ag pending repeat BC 11/03 NGTD echo elevate RUE Wound care treatment. Supportive care. Patient seen, examined, I agree with above. Assessment and plan was co formulated with ANIMAL ATTENDANT. DIAZ DARLING APRN Nov 04, 2018 11:27 LINDY LANDON MD Nov 04, 2018 14:42
--- NOTE | 2018-11-04 12:39 | PDOC ---
Provider Note Provider Note Vascular surgery progress note. Patient status post percutaneous revascularization left and digit amputation left first and second toe She has a pressure sore beneath her heel on the right. She is scheduled for arteriographic evaluation percutaneous intervention right leg in a.m. We'll repeat electrolytes with creatinine in a.m. and have the patient made nothing by mouth after midnight MAGNUS SMITH MD Nov 04, 2018 12:39
--- NOTE | 2018-11-04 13:11 | PDOC ---
PROGRESS NOTES Subjective Subjective feels better Objective Objective Vital Signs Date Time Temp Pulse Resp B/P (MAP) Pulse Ox O2 Delivery O2 Flow Rate FiO2 11/04/18 11:00 98.5 79 16 109/55 (73) 98 Room Air 98.5 Intake and Output 11/04/18 06:59 Intake Total 850 ml Balance 850 ml Intake Oral 850 ml # Voids 2 # Bowel Movements 2 Physical Exam Abdomen: Normal bowel sounds, Soft, Other (obese, healed midline scar) Heart: Regular rate, Normal S1, Normal S2 Extremities: Other General: Alert, Cooperative Lungs: Clear to auscultation MUSCULOSKELETAL: No swelling Neck: Supple Neuro: Normal speech Psych/Mental Status: Mood NL COMMENT dressings s/p toe amputations Diagnosis Problem List Problems Medical Problems: (1) Anxiety Status: Acute (2) Dementia Status: Acute (3) Diabetic foot ulcers Status: Acute (4) Hyperglycemia Status: Acute (5) Uncontrolled diabetes mellitus Status: Acute Assessment Assessment Problems Medical Problems: (1) Anxiety Status: Acute (2) Dementia Status: Acute (3) Diabetic foot ulcers Status: Acute (4) Hyperglycemia Status: Acute (5) Uncontrolled diabetes mellitus Status: Acute FINAL IMPRESSION: 1. 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 2. Peripheral vascular disease, severe. 3. Insulin-dependent diabetes. 4. Chronic kidney disease, history of kidney transplant. 5. History of immunosuppression. 6. History of disseminated cryptococcal disease. 7. History of seizures. 8. History of previous stroke. 9. Bypass surgery.CABG 10. Chronic systolic heart failure, ejection fraction around 40. 11.Lung Nodule ,benign on CT scan PLAN: POD#2, lt foot 1,2 toe amputation, rt heal debridement Arteriogram done 11/01/18 doppler legs dec circulation below the knees. d/c iv hydration .cr1.5 stable iv antibiotics.Dapto+Zosyn blood c/s 1 in 4 bottles positive . wound c/s pending, gram positive rt arm blisters from iv infiltration. venous doppler neg for blood clots . spoke with pts daughter. She is scheduled for arteriographic evaluation percutaneous intervention right leg in a.m. Plan Plan of Care Problems Medical Problems: (1) Anxiety Status: Acute (2) Dementia Status: Acute (3) Diabetic foot ulcers Status: Acute (4) Hyperglycemia Status: Acute (5) Uncontrolled diabetes mellitus Status: Acute Comment Review of Relevant I have reviewed the following items warner (where applicable) has been applied. Labs Laboratory Tests Test 11/03/18 16:49 11/03/18 20:43 11/04/18 07:48 11/04/18 11:49 Glucose (Fingerstick) 191 mg/dL (70-99) 202 mg/dL (70-99) 128 mg/dL (70-99) 125 mg/dL (70-99) Microbiology 11/03/18 Blood Culture - Preliminary, Resulted NO GROWTH AFTER 1 DAY 10/31/18 Anaerobic/Aerobic Culture, Resulted Pending 10/31/18 Anaerobic Culture Result 1 (LYN), Resulted Pending 10/31/18 Aerobic Culture - Final, Resulted 10/31/18 Aerobic Culture Result 1 (LYN) - Final, Resulted 10/31/18 Antimicrobic Susceptibility - Final, Resulted 10/31/18 Gram Stain - Final, Resulted 10/31/18 Gram Stain Result 1 (LYN) - Final, Resulted 10/31/18 Gram Stain Result 2 (LYN) - Final, Resulted Medications Current Medications Sodium Chloride 1,000 ml @ 100 mls/hr Q10H IV ; Start 11/04/18 at 18:00; Stop 11/04/18 at 18:00; Status DC Vitals/I & O Vital Sign - Last 24 Hours 11/03/18 11/03/18 11/03/18 11/03/18 15:26 15:27 16:55 19:40 Temp 98.8 98.5 98.8 98.5 Pulse 75 75 75 73 Resp 18 17 B/P (MAP) 116/47 (70) 116/47 116/47 106/31 (56) Pulse Ox 97 95 O2 Delivery Room Air Room Air 11/03/18 11/03/18 11/03/18 11/03/18 20:00 20:10 21:34 23:28 Temp 97.5 97.5 Pulse 73 74 Resp 17 B/P (MAP) 106/31 97/44 (61) Pulse Ox 94 O2 Delivery Room Air Room Air Room Air 11/04/18 11/04/18 11/04/18 11/04/18 03:33 07:00 07:50 07:51 Temp 98.2 98.7 98.2 98.7 Pulse 82 80 80 80 Resp 17 18 B/P (MAP) 102/39 (60) 86/36 (53) 86/36 86/36 Pulse Ox 93 99 O2 Delivery Room Air Room Air 11/04/18 11/04/18 11/04/18 11/04/18 07:51 08:00 08:56 11:00 Temp 98.5 98.5 Pulse 80 77 79 Resp 16 B/P (MAP) 86/36 99/45 (63) 109/55 (73) Pulse Ox 98 O2 Delivery Room Air Room Air Intake and Output 11/03/18 11/03/18 11/04/18 14:59 22:59 06:59 Intake Total 850 ml Balance 850 ml AUGUSTO BRUNER MD Nov 04, 2018 13:11
[2018-11-04 16:10] LABS: CALCIUM 9.4 mg/dL (8.5-10.1); CREATININE 1.8 mg/dL (0.6-1.0); GFR 34.2; POTASSIUM 3.4 mmol/L (3.5-5.1)
[2018-11-04] MEDS ORDERED: IV NORMAL SALINE 1000ML BAG 1,000 ML IV SCH (18:00)
[2018-11-04] MEDS: TACROLIMUS 0.5 MG CAPSULE PO SCH (21:08)
[2018-11-04] MEDS: ATORVASTATIN CALCIUM 40 MG TABLET. PO SCH (21:08)
[2018-11-04] MEDS: ALPRAZolam 0.25 MG TABLET PO PRN (21:08)
[2018-11-04] MEDS: IV NORMAL SALINE 1000ML BAG 1,000 ML IV SCH (21:09)
[2018-11-04] MEDS: INSULIN GLARGINE 300 UNITS/3 ML INSULN.PEN. SQ SCH (21:15)
[2018-11-05] VITALS (7 sets, daily range): BP systolic 99–207; BP diastolic 40–79
[2018-11-05] MEDS: PIPERACILLIN/TAZOBACTAM 2.25 GM in IV NORMAL SALINE 50ML 50 ML IV SCH ×4 (01:09→17:38)
[2018-11-05] MEDS: METOCLOPRAMIDE 5 MG TABLET. PO SCH ×3 (07:30→17:35)
[2018-11-05] MEDS: INSULIN LISPRO 300 UNITS/3 ML INSULN.PEN. SQ SCH ×6 (08:00→17:55)
[2018-11-05] MEDS: MYCOPHENOLATE ACID 180 MG TABLET.DR. PO SCH ×2 (09:00→22:08)
[2018-11-05] MEDS: predniSONE 5 MG TABLET PO SCH (09:00)
[2018-11-05] MEDS: BISACODYL 5 MG TABLET.DR. PO SCH (09:00)
--- NOTE | 2018-11-05 09:30 | NUR ---
Pt was seen for wound care follow up on multiple wounds. Left 1st and 2nd toe amputation site, cleaned with chloraprep, incision line well approximated, sutures intact. Left 3rd toe is closed. Left lateral ankle wound, which was previously scabbed now has a necrotic center with quater fluctuance noted around, when cleaned a brown purulent drainage noted from under scab. Finding communicated to SERA Larios for vascular surgery. Left ankle and amputation site dressed with xeroform, dry gauze and kerlix. Right great toe is now closed, s/p surgical debridemen. Right heel DFU with pin point opening, skin prep applied to area and foam applied. Pt incontinent of bowel, filiberto care completed, pt reposition to left side, heels floated. Wound care will continue to follow.
--- NOTE | 2018-11-05 09:47 | PDOC ---
PROGRESS NOTES Subjective Subjective going for arteriogram and SFA intervention today Objective Objective Vital Signs Date Time Temp Pulse Resp B/P (MAP) Pulse Ox O2 Delivery O2 Flow Rate FiO2 11/05/18 07:00 98.2 79 16 126/58 (80) 97 Room Air 98.2 Intake and Output 11/05/18 07:00 Intake Total 1100 ml Output Total 300 ml Balance 800 ml Intake Oral 1000 ml IV Total 100 ml Output Urine Total 300 ml # Voids 2 # Bowel Movements 6 Physical Exam Abdomen: Normal bowel sounds, Soft, Other (obese, healed midline scar) Heart: Regular rate, Normal S1, Normal S2 Extremities: Other General: Alert, Cooperative Lungs: Clear to auscultation MUSCULOSKELETAL: No swelling Neck: Supple Neuro: Normal speech Psych/Mental Status: Mood NL COMMENT dressings s/p toe amputations Diagnosis Problem List Problems Medical Problems: (1) Anxiety Status: Acute (2) Dementia Status: Acute (3) Diabetic foot ulcers Status: Acute (4) Hyperglycemia Status: Acute (5) Uncontrolled diabetes mellitus Status: Acute Assessment Assessment Problems Medical Problems: (1) Anxiety Status: Acute (2) Dementia Status: Acute (3) Diabetic foot ulcers Status: Acute (4) Hyperglycemia Status: Acute (5) Uncontrolled diabetes mellitus Status: Acute FINAL IMPRESSION: 1. 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 2. Peripheral vascular disease, severe. 3. Insulin-dependent diabetes. 4. Chronic kidney disease, history of kidney transplant. 5. History of immunosuppression. 6. History of disseminated cryptococcal disease. 7. History of seizures. 8. History of previous stroke. 9. Bypass surgery.CABG 10. Chronic systolic heart failure, ejection fraction around 40. 11.Lung Nodule ,benign on CT scan PLAN: Arteriogram and intervention today. cr 1.8,hydrate with fluids POD#3, lt foot 1,2 toe amputation, rt heal debridement Arteriogram done 11/01/18 doppler legs dec circulation below the knees. d/c iv hydration .cr1.5 stable iv antibiotics.Dapto+Zosyn blood c/s 1 in 4 bottles positive . wound c/s pending, gram positive rt arm blisters from iv infiltration. venous doppler neg for blood clots . spoke with pts daughter. She is scheduled for arteriographic evaluation percutaneous intervention right leg in a.m. Plan Plan of Care Problems Medical Problems: (1) Anxiety Status: Acute (2) Dementia Status: Acute (3) Diabetic foot ulcers Status: Acute (4) Hyperglycemia Status: Acute (5) Uncontrolled diabetes mellitus Status: Acute Comment Review of Relevant I have reviewed the following items warner (where applicable) has been applied. Labs Laboratory Tests Test 11/04/18 11:49 11/04/18 13:20 11/04/18 16:47 11/04/18 20:34 Glucose (Fingerstick) 125 mg/dL (70-99) 242 mg/dL (70-99) 225 mg/dL (70-99) Sodium Level 146 mmol/L (136-145) Potassium Level 3.4 mmol/L (3.5-5.1) Chloride Level 111 mmol/L (98-107) Carbon Dioxide Level 24 mmol/L (21-32) Anion Gap 11 (6-14) Blood Urea Nitrogen 28 mg/dL (7-20) Creatinine 1.8 mg/dL (0.6-1.0) Estimated GFR (Cockcroft-Gault) 34.2 Glucose Level 211 mg/dL (70-99) Calcium Level 9.4 mg/dL (8.5-10.1) Test 11/05/18 07:48 Glucose (Fingerstick) 92 mg/dL (70-99) Microbiology 11/03/18 Blood Culture - Preliminary, Resulted NO GROWTH AFTER 1 DAY 10/31/18 Anaerobic/Aerobic Culture, Resulted Pending 10/31/18 Anaerobic Culture Result 1 (LYN), Resulted Pending 10/31/18 Aerobic Culture - Final, Resulted 10/31/18 Aerobic Culture Result 1 (LYN) - Final, Resulted 10/31/18 Antimicrobic Susceptibility - Final, Resulted 10/31/18 Gram Stain - Final, Resulted 10/31/18 Gram Stain Result 1 (LYN) - Final, Resulted 10/31/18 Gram Stain Result 2 (LYN) - Final, Resulted Medications Current Medications Sodium Chloride 1,000 ml @ 50 mls/hr Q20H IV Last administered on 11/04/18at 21 :09; Start 11/04/18 at 20:00; Stop 11/05/18 at 18:00 Sodium Chloride 1,000 ml @ 100 mls/hr Q10H IV ; Start 11/04/18 at 18:00; Stop 11/04/18 at 18:00; Status DC Vitals/I & O Vital Sign - Last 24 Hours 11/04/18 11/04/18 11/04/18 11/04/18 11:00 15:00 19:00 20:00 Temp 98.5 98.3 98.1 98.5 98.3 98.1 Pulse 79 81 79 Resp 16 16 17 B/P (MAP) 109/55 (73) 118/52 (74) 151/79 (103) Pulse Ox 98 98 99 O2 Delivery Room Air Room Air Room Air Room Air 11/04/18 11/04/18 11/05/18 11/05/18 21:08 23:00 03:00 07:00 Temp 98.7 97.5 98.2 98.7 97.5 98.2 Pulse 79 84 82 79 Resp 16 16 16 B/P (MAP) 151/79 110/58 (75) 99/40 (59) 126/58 (80) Pulse Ox 96 96 97 O2 Delivery Room Air Room Air Room Air Intake and Output 11/04/18 11/04/18 11/05/18 15:00 23:00 07:00 Intake Total 480 ml 320 ml 300 ml Output Total 300 ml Balance 480 ml 320 ml 0 ml AUGUSTO BRUNER MD Nov 05, 2018 09:47
[2018-11-05 10:03] LABS: BASO % 0 % (0-3); EOS # 0.4 x10^3/uL (0.0-0.7); EOS % 4 % (0-3); HEMATOCRIT 30.4 % (36.0-47.0); HEMOGLOBIN 9.4 g/dL (12.0-15.5); LYMPH # 1.8 x10^3/uL (1.0-4.8); LYMPH % 18 % (24-48); MEAN CORPUSCULAR HEMOGLOBIN 25 pg (25-35); MEAN CORPUSCULAR HGB CONC 31 g/dL (31-37); MEAN CORPUSCULAR VOLUME 82 fL (79-100); MONO % 10 % (0-9); NEUT # 6.9 x10^3uL (1.8-7.7); NEUT % 68 % (31-73); PLATELET COUNT 293 x10^3/uL (140-400); RED BLOOD COUNT 3.71 x10^6/uL (3.50-5.40); RED CELL DISTRIBUTION WIDTH 16.3 % (11.5-14.5); WHITE BLOOD COUNT 10.1 x10^3/uL (4.0-11.0)
[2018-11-05] MEDS ORDERED: HEPARIN for ARTERIAL LINE 0 ML ONE (10:04)
[2018-11-05] MEDS ORDERED: LIDOCAINE 1% Multi-Dose 20 ML VIAL. ONE (10:04)
[2018-11-05] MEDS ORDERED: IODIXANOL 320 MG/ML 100 ML VIAL. ONE (10:04)
--- NOTE | 2018-11-05 10:45 | NUR ---
PICC line ordered by Dr. Moran. Renal has given consent for central line instead. Dr. Ortega is recommending port placement. Pg sent to Dr. Moran.
[2018-11-05 10:50] LABS: CALCIUM 9.6 mg/dL (8.5-10.1); CREATININE 1.6 mg/dL (0.6-1.0); GFR 39.1; POTASSIUM 3.1 mmol/L (3.5-5.1)
[2018-11-05] MEDS ORDERED: fentaNYL PF VIAL 100 MCG/2 ML VIAL ONE (11:36)
[2018-11-05] MEDS ORDERED: MIDAZOLAM HCL/PF 2 MG/2 ML VIAL. ONE (11:36)
[2018-11-05] MEDS ORDERED: HEPARIN for IV BOLUS 10,000 UNIT/10 ML VIAL. ONE (11:37)
--- NOTE | 2018-11-05 11:45 | PDOC ---
Infectious Disease Note Subjective Subjective Pulled RIJ out Comfortable, denies pain Says RUE less tight Denies F/C/N/V/D/pain/SOA Vital Sign Vital Signs Vital Signs Date Time Temp Pulse Resp B/P (MAP) Pulse Ox O2 Delivery O2 Flow Rate FiO2 11/05/18 07:00 98.2 79 16 126/58 (80) 97 Room Air 98.2 Physical Exam PHYSICAL EXAM GENERAL: Lying down, alert, NAD HEENT: Oral mucosa moist. Edentulous NECK: Supple. LUNGS: Clear bilaterally. No wheezing. HEART: S1, S2 with no gallops or murmurs. ABDOMEN: Soft, nontender EXTREMITIES: RUE less swollen, + blisters, forearm bandaged and both feet are bandaged,(post-op) ONLINE EDITOR: Alert and oriented x 3. Grossly nonfocal. SKIN: without rash RIJ without signs of any complications, out PIV ok Labs Lab Laboratory Tests Test 11/04/18 11:49 11/04/18 13:20 11/04/18 16:47 11/04/18 20:34 Glucose (Fingerstick) 125 mg/dL (70-99) 242 mg/dL (70-99) 225 mg/dL (70-99) Sodium Level 146 mmol/L (136-145) Potassium Level 3.4 mmol/L (3.5-5.1) Chloride Level 111 mmol/L (98-107) Carbon Dioxide Level 24 mmol/L (21-32) Anion Gap 11 (6-14) Blood Urea Nitrogen 28 mg/dL (7-20) Creatinine 1.8 mg/dL (0.6-1.0) Estimated GFR (Cockcroft-Gault) 34.2 Glucose Level 211 mg/dL (70-99) Calcium Level 9.4 mg/dL (8.5-10.1) Test 11/05/18 07:48 11/05/18 08:08 Glucose (Fingerstick) 92 mg/dL (70-99) White Blood Count 10.1 x10^3/uL (4.0-11.0) Red Blood Count 3.71 x10^6/uL (3.50-5.40) Hemoglobin 9.4 g/dL (12.0-15.5) Hematocrit 30.4 % (36.0-47.0) Mean Corpuscular Volume 82 fL (79-100) Mean Corpuscular Hemoglobin 25 pg (25-35) Mean Corpuscular Hemoglobin Concent 31 g/dL (31-37) Red Cell Distribution Width 16.3 % (11.5-14.5) Platelet Count 293 x10^3/uL (140-400) Neutrophils (%) (Auto) 68 % (31-73) Lymphocytes (%) (Auto) 18 % (24-48) Monocytes (%) (Auto) 10 % (0-9) Eosinophils (%) (Auto) 4 % (0-3) Basophils (%) (Auto) 0 % (0-3) Neutrophils # (Auto) 6.9 x10^3uL (1.8-7.7) Lymphocytes # (Auto) 1.8 x10^3/uL (1.0-4.8) Monocytes # (Auto) 1.0 x10^3/uL (0.0-1.1) Eosinophils # (Auto) 0.4 x10^3/uL (0.0-0.7) Basophils # (Auto) 0.0 x10^3/uL (0.0-0.2) Sodium Level 152 mmol/L (136-145) Potassium Level 3.1 mmol/L (3.5-5.1) Chloride Level 114 mmol/L (98-107) Carbon Dioxide Level 23 mmol/L (21-32) Anion Gap 15 (6-14) Blood Urea Nitrogen 23 mg/dL (7-20) Creatinine 1.6 mg/dL (0.6-1.0) Estimated GFR (Cockcroft-Gault) 39.1 Glucose Level 86 mg/dL (70-99) Calcium Level 9.6 mg/dL (8.5-10.1) Micro Microbiology 11/03/18 Blood Culture - Preliminary, Resulted NO GROWTH AFTER 2 DAYS 10/31/18 Anaerobic/Aerobic Culture, Resulted Pending 10/31/18 Anaerobic Culture Result 1 (LYN), Resulted Pending 10/31/18 Aerobic Culture - Final, Resulted 10/31/18 Aerobic Culture Result 1 (LYN) - Final, Resulted 10/31/18 Antimicrobic Susceptibility - Final, Resulted 10/31/18 Gram Stain - Final, Resulted 10/31/18 Gram Stain Result 1 (LYN) - Final, Resulted 10/31/18 Gram Stain Result 2 (LYN) - Final, Resulted Objective Assessment Bacteremia, MSSA 10/30. repeat BC 11/03 NGTD Left toes with gangrene, s/p angio, 11/01. s/p 1st and 2nd toe amputation, primary closure on 11/02. CoNS-oxacillin sensitive Right heel callus s/p excision on 11/02. Peripheral arterial disease.s/p angiogram, awaiting right SFA atherectomy/ angioplasty on Monday Chronic kidney disease, status post renal transplant. 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 Pt was on chronic suppressive fluconazole, though not seen on list from the [place] Acute kidney injury with chronic kidney disease. Hypertension. Coronary artery disease. Diabetes. RUE swelling, RUE US neg DVT - improving Plan Plan of Care Could not see today as in procedure but chart reviewed d/c Dapto Continue Zosyn for now Cont fluconazole cryptococcal ag pending repeat BC 11/03 NGTD echo elevate RUE Wound care treatment. Supportive care. NHI REDDY MD Nov 05, 2018 11:44
--- NOTE | 2018-11-05 12:01 | NUR ---
SW following. Discussed with RN, pt having a procedure today. SW will continue to follow for discharge back to [facility].
[2018-11-05] MEDS ORDERED: HEPARIN for IV BOLUS 10,000 UNIT/10 ML VIAL. IV ONE (12:15)
[2018-11-05] MEDS ORDERED: LIDOCAINE 1% Multi-Dose 20 ML VIAL. INJ ONE (12:15)
[2018-11-05] MEDS ORDERED: MIDAZOLAM HCL/PF 2 MG/2 ML VIAL. IV ONE (12:15)
[2018-11-05] MEDS ORDERED: HEPARIN for IV BOLUS 10,000 UNIT/10 ML VIAL. IART ONE (12:15)
[2018-11-05] MEDS ORDERED: fentaNYL PF VIAL 100 MCG/2 ML VIAL IV ONE (12:15)
[2018-11-05] MEDS ORDERED: CLOPIDOGREL BISULFATE 75 MG TABLET ONE (12:52)
[2018-11-05] MEDS ORDERED: CLOPIDOGREL BISULFATE 75 MG TABLET PO ONE (13:00)
[2018-11-05] MEDS ORDERED: IODIXANOL 320 MG/ML 100 ML VIAL. IV ONE (13:15)
[2018-11-05] MEDS ORDERED: CONTRAST GIVEN. MC PRN (13:15)
--- NOTE | 2018-11-05 13:22 | PDOC4 ---
OPERATIVE NOTE Date: Date: Nov 05, 2018 Pre-Op Diagnosis: Atherosclerosis of [place] arteries of right lower extremity with ulceration of the other part of the foot (toes) Post-Op Diagnosis: Same Procedure Performed: #1 ultrasound-guided access left common femoral artery #2 right superficial femoral artery atherectomy and angioplasty #3 right Posterior tibial angioplasty (Pt had previous diagnostic angiogram) Surgeon: Huy Pineda MD Anesthesia Type: Conscious sedation under surgeon and RN supervision total 60 minutes Versed 1 mg Fentanyl 50 g Blood Loss: 0 Specimans Obtained: none Findings: #1 right distal SFA FRONT END DEVELOPER just above the abductor canal recanalized with directional atherectomy using a Hawk 1 M device low pressure 4 cris balloon angioplasty 5 x 60 balloongood results treated with a 5 mm drug-eluting balloon Rattle Adm. #2 focal stenosis at the origin of the right posterior tibial treated with balloon angioplasty with in-line flow to the foot via the NETTIE and RETAIL CENTER RECEPTIONIST at the end of the case Complications: None Operative Note: The patient was escorted to the Crepe Laminator Operator and placed supine on the table. Sedation was induced under physician and nurse supervision after appropriate timeout and placement of appropriate monitoring devices. Attention was directed left groin which was fluoroscopically marked over the femoral head and then examined with ultrasound. On ultrasound the vessels found to be widely patent with good flow and an image of the vessels taken and saved for the medical record. Under real-time ultrasound guidance local anesthetic was injected in the left groin and left common femoral was accessed in a retrograde fashion using a micropuncture needle. Seldinger technique was used to place a micropuncture wire and the left iliac artery under fluoroscopic guidance and exchanged the needle for a micropuncture sheath which backbled easily. This was used to introduce a Em wire into the abdominal aorta under fluoroscopic guidance and exchanged the [place] puncture sheath for a 5 [place] sheath which was aspirated and flushed with difficulty. She was given intervenous heparin. The wire and sheath were used to introduce a rim catheter into the distal aorta and this and the Em wire were used to cross the aortic bifurcation and passed the wire catheter into the right superficial femoral artery. With the wire the right SFA at the catheter was removed and the wire was used to exchange the 5 [place] sheath for a 6 [place] 45 cm Terumo destination sheath which was passed up and over the bifurcation with the distal tip in the right common femoral artery. Was aspirated and flushed without difficulty. The sheath and Em wire were used to introduce an angled Navicross catheter and this and the Em wire were used to cross the right SFA FRONT END DEVELOPER and reenter the true lumen distally. Please note that all of this was done without any contrast. With the catheter tip past the FRONT END DEVELOPER a small puff of contrast through the catheter tip confirm luminal placement and then the catheter was used to deploy a 6 mm spider embolic protection device in the distal popliteal artery. Once this was done the catheter was removed and the wire was used to introduce a Hawk 1 M directional atherectomy device and I performed directional atherectomy of the distal SFA in 4 opposing planes. The device was removed and a quick angiogram with limit contrast showed good luminal gain. The same area was treated with a 5 x 60 angioplasty balloon at low pressure 4 cris and completion angiogram showed the area widely patent without dissection or complication. Given the good angiographic result the same area was treated with a 5 x 80 drug-eluting angioplasty balloon [employer]. After this was done the filter was removed using the Navicross catheter in an angiogram through the catheter tip showed a focal stenosis at the origin the posterior tibial. I used the catheter and a [place] core 0.014 wire to cross this and treated the posterior tibial with focal balloon angioplasty with a 2.5mm x 4 cm balloon with good results. Completion angiogram showed this widely patent but now appreciated a small residual stenosis and the P2 segment of the popliteal artery which was not previously treated. This was treated with the same 5 x 60 balloon from above with good results and and gram showed in-line flow to the foot via the NETTIE and RETAIL CENTER RECEPTIONIST with no residual stenosis, no dissection, no extravasation, and no complication. The wires were removed and the sheath was removed over a Me wire. This was used to deploy a 6 [place] Angio-Seal device at the left femoral artery access site with excellent hemostasis. A she was examined and found to have an excellent signal in the right foot and no evidence of left femoral access site complication. Total contrast 45 mL. Was given a 500 mL bolus of normal saline and we'll run saline overnight for a kidney transplant and small amount of contrast. She was loaded with 150 mg of Plavix postprocedure and will continue aspirin and Plavix postop HUY PINEDA MD Nov 05, 2018 13:22
[2018-11-05] MEDS: FLUCONAZOLE 100 MG TABLET. PO SCH (13:52)
[2018-11-05] MEDS: MULTIVITAMIN with MINERAL TABLET. PO SCH (13:52)
[2018-11-05] MEDS: levETIRAcetam 500 MG TABLET PO SCH ×2 (13:52→22:08)
[2018-11-05] MEDS: PANTOPRAZOLE 40 MG TABLET.DR. PO SCH (13:52)
[2018-11-05] MEDS: ASPIRIN 325 MG TABLET PO SCH (13:52)
[2018-11-05] MEDS: FOLIC/VIT B COMP W-C (RENAL) TABLET. PO SCH (13:53)
[2018-11-05] MEDS: LISINOPRIL 10 MG TABLET PO SCH (13:53)
[2018-11-05] MEDS: FERROUS SULFATE 325 MG TABLET. PO SCH (13:53)
[2018-11-05] MEDS: FUROSEMIDE 40 MG TABLET. PO SCH (13:53)
[2018-11-05] MEDS: CARVEDILOL 6.25 MG TABLET. PO SCH ×2 (13:54→17:35)
--- NOTE | 2018-11-05 15:46 | PDOC ---
Provider Note Provider Note Vascular Patient seen and examined at the request of WCN. WCN reported purulent drainage left lateral malleolus. Dr Ortega debrided superficial ulcer/blister down to clean tissue, no further purulence or fluctuance. Recommend topical antibiotic ointment. Follow up Office Visit with [facility] scheduled for 11/28/2018 1:[address] Stephenson [phone] MICHELLE SPRINGER APRN Nov 05, 2018 15:46
--- NOTE | 2018-11-05 15:51 | PDOC ---
Renal-Progress Notes Subjective Notes Notes NO COMPLAINTS VOICED History of Present Illness Hx of present illness STABLE Vitals Vitals Vital Signs Date Time Temp Pulse Resp B/P (MAP) Pulse Ox O2 Delivery O2 Flow Rate FiO2 11/05/18 13:54 188/73 11/05/18 13:05 87 15 100 Nasal Cannula 2.0 11/05/18 11:00 97.7 97.7 Weight Weight [ ] I.O. Intake and Output Intake and Output 11/05/18 06:59 Intake Total 1050 ml Output Total 300 ml Balance 750 ml Intake Oral 1000 ml IV Total 50 ml Output Urine Total 300 ml # Voids 2 # Bowel Movements 6 Labs Labs Laboratory Tests Test 11/04/18 16:47 11/04/18 20:34 11/05/18 07:48 11/05/18 08:08 Glucose (Fingerstick) 242 mg/dL (70-99) 225 mg/dL (70-99) 92 mg/dL (70-99) White Blood Count 10.1 x10^3/uL (4.0-11.0) Red Blood Count 3.71 x10^6/uL (3.50-5.40) Hemoglobin 9.4 g/dL (12.0-15.5) Hematocrit 30.4 % (36.0-47.0) Mean Corpuscular Volume 82 fL (79-100) Mean Corpuscular Hemoglobin 25 pg (25-35) Mean Corpuscular Hemoglobin Concent 31 g/dL (31-37) Red Cell Distribution Width 16.3 % (11.5-14.5) Platelet Count 293 x10^3/uL (140-400) Neutrophils (%) (Auto) 68 % (31-73) Lymphocytes (%) (Auto) 18 % (24-48) Monocytes (%) (Auto) 10 % (0-9) Eosinophils (%) (Auto) 4 % (0-3) Basophils (%) (Auto) 0 % (0-3) Neutrophils # (Auto) 6.9 x10^3uL (1.8-7.7) Lymphocytes # (Auto) 1.8 x10^3/uL (1.0-4.8) Monocytes # (Auto) 1.0 x10^3/uL (0.0-1.1) Eosinophils # (Auto) 0.4 x10^3/uL (0.0-0.7) Basophils # (Auto) 0.0 x10^3/uL (0.0-0.2) Sodium Level 152 mmol/L (136-145) Potassium Level 3.1 mmol/L (3.5-5.1) Chloride Level 114 mmol/L (98-107) Carbon Dioxide Level 23 mmol/L (21-32) Anion Gap 15 (6-14) Blood Urea Nitrogen 23 mg/dL (7-20) Creatinine 1.6 mg/dL (0.6-1.0) Estimated GFR (Cockcroft-Gault) 39.1 Glucose Level 86 mg/dL (70-99) Calcium Level 9.6 mg/dL (8.5-10.1) Micro Micro Microbiology 11/03/18 Blood Culture - Preliminary, Resulted NO GROWTH AFTER 2 DAYS 10/31/18 Anaerobic/Aerobic Culture, Resulted Pending 10/31/18 Anaerobic Culture Result 1 (LYN), Resulted Pending 10/31/18 Aerobic Culture - Final, Resulted 10/31/18 Aerobic Culture Result 1 (LYN) - Final, Resulted 10/31/18 Antimicrobic Susceptibility - Final, Resulted 10/31/18 Gram Stain - Final, Resulted 10/31/18 Gram Stain Result 1 (LYN) - Final, Resulted 10/31/18 Gram Stain Result 2 (LYN) - Final, Resulted Review of Systems Constitutional: yes: weakness, alert, oriented Ears/Nose/Throat: Yes: no symptom reported Pulmonary: Yes no symptom reported Cardiovascular: Yes no symptom reported Gastrointestional: Yes: no symptom reported Genitourinary: Yes: no symptom reported Musculoskeletal: Yes: muscle stiffness, muscle atrophy Skin: Yes no symptom reported Psychiatric/Neurological: Yes: no symptom reported Endocrine: Yes: no symptom reported Physical Exam General Appearance: no apparent distress, cachetic, thin, alert, oriented Skin: warm Respiratory: bilateral CTA Heart: S1S2 Abdomen: soft, bowel sounds present Genitourinary: bladder flat Extremities: pulses present Neurology: alert, oriented, Ext weakness Musculoskeletal: Osteoarthritis Assessment Assessment IMP RENAL TX-STABLE CR OF .6 LOW K HYPERNATREMIA PAD DM II HTN PLAN CONT IMMUNOSUPPRESSANTS HYDRATION REPLACE K WILL FOLLOW MO RODRIGUEZ MD Nov 05, 2018 15:51
[2018-11-05] MEDS: IV NORMAL SALINE 1000ML BAG 1,000 ML IV SCH (15:56)
[2018-11-05] MEDS ORDERED: POTASSIUM CHLORIDE 20 MEQ TABLET.ER. PO ONE (16:30)
[2018-11-05] MEDS: BACITRACIN TOPICAL OINT 14GM TUBE. TP SCH (17:50)
[2018-11-05] MEDS: TACROLIMUS 0.5 MG CAPSULE PO SCH (22:08)
[2018-11-05] MEDS: ATORVASTATIN CALCIUM 40 MG TABLET. PO SCH (22:08)
[2018-11-05] MEDS: INSULIN GLARGINE 300 UNITS/3 ML INSULN.PEN. SQ SCH (22:15)
[2018-11-06] MEDS: PIPERACILLIN/TAZOBACTAM 2.25 GM in IV NORMAL SALINE 50ML 50 ML IV SCH ×2 (00:11→06:00)
[2018-11-06 03:40] VITALS: BP 141/48
[2018-11-06] MEDS: DEXTROSE 50% 25 GM / 50ML DISP.SYRIN. IV PRN (03:48)
[2018-11-06 07:00] VITALS: BP 183/70
[2018-11-06] MEDS: BACITRACIN TOPICAL OINT 14GM TUBE. TP SCH ×2 (09:00→20:43)
[2018-11-06] MEDS: MYCOPHENOLATE ACID 180 MG TABLET.DR. PO SCH ×2 (09:16→22:17)
[2018-11-06] MEDS: LISINOPRIL 10 MG TABLET PO SCH (09:16)
[2018-11-06] MEDS: FOLIC/VIT B COMP W-C (RENAL) TABLET. PO SCH (09:17)
[2018-11-06] MEDS: MULTIVITAMIN with MINERAL TABLET. PO SCH (09:17)
[2018-11-06] MEDS: levETIRAcetam 500 MG TABLET PO SCH ×2 (09:17→22:16)
[2018-11-06] MEDS: CARVEDILOL 6.25 MG TABLET. PO SCH ×2 (09:17→17:35)
[2018-11-06] MEDS: BISACODYL 5 MG TABLET.DR. PO SCH (09:17)
[2018-11-06] MEDS: predniSONE 5 MG TABLET PO SCH (09:17)
[2018-11-06] MEDS: PANTOPRAZOLE 40 MG TABLET.DR. PO SCH (09:18)
[2018-11-06] MEDS: METOCLOPRAMIDE 5 MG TABLET. PO SCH ×3 (09:18→17:35)
[2018-11-06] MEDS: FLUCONAZOLE 100 MG TABLET. PO SCH (09:18)
[2018-11-06] MEDS: ASPIRIN 325 MG TABLET PO SCH (09:18)
[2018-11-06] MEDS: FERROUS SULFATE 325 MG TABLET. PO SCH (09:18)
[2018-11-06] MEDS: CLOPIDOGREL BISULFATE 75 MG TABLET PO SCH (09:18)
[2018-11-06] MEDS: FUROSEMIDE 40 MG TABLET. PO SCH (09:18)
[2018-11-06] MEDS: INSULIN LISPRO 300 UNITS/3 ML INSULN.PEN. SQ SCH ×6 (09:25→17:40)
[2018-11-06] MEDS ORDERED: HEPARIN PF 500 UNIT/5 ML DISP.SYRIN. IV ONE ×2 (10:09→11:15)
[2018-11-06] MEDS ORDERED: LIDOCAINE 1%/EPI 1:100,000 20 ML VIAL. ONE (10:09)
[2018-11-06 10:18] LABS: CALCIUM 9.6 mg/dL (8.5-10.1); CREATININE 1.4 mg/dL (0.6-1.0); GFR 45.7; MAGNESIUM 1.8 mg/dL (1.8-2.4); POTASSIUM 4.1 mmol/L (3.5-5.1)
--- NOTE | 2018-11-06 10:33 | PDOC ---
PROGRESS NOTES Subjective Subjective feels better today Objective Objective Vital Signs Date Time Temp Pulse Resp B/P (MAP) Pulse Ox O2 Delivery O2 Flow Rate FiO2 11/06/18 09:17 80 183/70 11/06/18 08:00 Room Air 2.0 11/06/18 07:00 98.4 18 98 98.4 Intake and Output 11/06/18 07:00 Intake Total 780 ml Output Total 352 ml Balance 428 ml Intake Oral 780 ml Output Urine Total 350 ml Stool Total 2 ml # Voids 8 # Bowel Movements 3 Physical Exam Abdomen: Normal bowel sounds, Soft, Other (obese, healed midline scar) Heart: Regular rate, Normal S1, Normal S2 Extremities: Other General: Alert, Cooperative Lungs: Clear to auscultation MUSCULOSKELETAL: No swelling Neck: Supple Neuro: Normal speech Psych/Mental Status: Mood NL COMMENT dressings s/p toe amputations Diagnosis Problem List Problems Medical Problems: (1) Anxiety Status: Acute (2) Dementia Status: Acute (3) Diabetic foot ulcers Status: Acute (4) Hyperglycemia Status: Acute (5) Uncontrolled diabetes mellitus Status: Acute Assessment Assessment Problems Medical Problems: (1) Anxiety Status: Acute (2) Dementia Status: Acute (3) Diabetic foot ulcers Status: Acute (4) Hyperglycemia Status: Acute (5) Uncontrolled diabetes mellitus Status: Acute FINAL IMPRESSION: 1. 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 2. Peripheral vascular disease, severe. 3. Insulin-dependent diabetes. 4. Chronic kidney disease, history of kidney transplant. 5. History of immunosuppression. 6. History of disseminated cryptococcal disease. 7. History of seizures. 8. History of previous stroke. 9. Bypass surgery.CABG 10. Chronic systolic heart failure, ejection fraction around 40. 11.Lung Nodule ,benign on CT scan PLAN: d/c to [place] tomorrow Picc line /central line today. ECHO pending. spoke with renal. Arteriogram and intervention done yesterday cr 1.4,hydrate with fluids POD#4, lt foot 1,2 toe amputation, rt heal debridement Arteriogram done 11/01/18 doppler legs dec circulation below the knees. d/c iv hydration .cr1.5 stable iv antibiotics.Dapto+Zosyn blood c/s 1 in 4 bottles positive . wound c/s pending, gram positive rt arm blisters from iv infiltration. venous doppler neg for blood clots . spoke with pts daughter. She is scheduled for arteriographic evaluation percutaneous intervention right leg in a.m. Plan Plan of Care Problems Medical Problems: (1) Anxiety Status: Acute (2) Dementia Status: Acute (3) Diabetic foot ulcers Status: Acute (4) Hyperglycemia Status: Acute (5) Uncontrolled diabetes mellitus Status: Acute Comment Review of Relevant I have reviewed the following items warner (where applicable) has been applied. Labs Laboratory Tests Test 11/05/18 16:49 11/05/18 21:52 11/06/18 02:52 11/06/18 03:42 Glucose (Fingerstick) 70 mg/dL (70-99) 77 mg/dL (70-99) 36 mg/dL (70-99) 44 mg/dL (70-99) Test 11/06/18 04:12 11/06/18 07:22 11/06/18 09:55 Glucose (Fingerstick) 204 mg/dL (70-99) 185 mg/dL (70-99) Sodium Level 142 mmol/L (136-145) Potassium Level 4.1 mmol/L (3.5-5.1) Chloride Level 110 mmol/L (98-107) Carbon Dioxide Level 20 mmol/L (21-32) Anion Gap 12 (6-14) Blood Urea Nitrogen 18 mg/dL (7-20) Creatinine 1.4 mg/dL (0.6-1.0) Estimated GFR (Cockcroft-Gault) 45.7 Glucose Level 164 mg/dL (70-99) Calcium Level 9.6 mg/dL (8.5-10.1) Magnesium Level 1.8 mg/dL (1.8-2.4) Microbiology 11/03/18 Blood Culture - Preliminary, Resulted NO GROWTH AFTER 2 DAYS 10/31/18 Anaerobic/Aerobic Culture - Preliminary, Resulted 10/31/18 Anaerobic Culture Result 1 (LYN) - Preliminary, Resulted 10/31/18 Aerobic Culture - Final, Resulted 10/31/18 Aerobic Culture Result 1 (LYN) - Final, Resulted 10/31/18 Antimicrobic Susceptibility - Final, Resulted 10/31/18 Gram Stain - Final, Resulted 10/31/18 Gram Stain Result 1 (LYN) - Final, Resulted 10/31/18 Gram Stain Result 2 (LYN) - Final, Resulted Medications Current Medications Bacitracin 1 bebo BID TP Last administered on 11/06/18at 09:00; Start 11/05/18 at 16:00 Clopidogrel Bisulfate (Plavix) 75 mg [id number] PO Last administered on at 09:18; Start 11/06/18 at 08:00 Clopidogrel Bisulfate (Plavix) 75 mg STK-MED ONCE .ROUTE ; Start 11/05/18 at 12: 52; Stop 11/05/18 at 12:53; Status DC Clopidogrel Bisulfate (Plavix) 150 mg 1X ONCE PO Last administered on at 12:55; Start 11/05/18 at 13:00; Stop 11/05/18 at 13:01; Status DC Fentanyl Citrate (Fentanyl 2ml Vial) 100 mcg 1X ONCE IV Last administered on at 12:57; Start 11/05/18 at 12:15; Stop 11/05/18 at 12:16; Status DC Fentanyl Citrate (Fentanyl 2ml Vial) 100 mcg STK-MED ONCE .ROUTE ; Start at 11:36; Stop 11/05/18 at 11:37; Status DC Heparin Sodium (Porcine) (Hep Lock Adult) 500 unit STK-MED ONCE IV ; Start 11/06 at 10:09; Stop 11/06/18 at 10:10; Status DC Heparin Sodium (Porcine) (Heparin Sodium) 2,500 unit 1X ONCE IART ; Start 11/05 at 12:15; Stop 11/05/18 at 12:16; Status DC Heparin Sodium (Porcine) (Heparin Sodium) 4,000 unit 1X ONCE IV Last administered on 11/05/18at 12:15; Start 11/05/18 at 12:15; Stop 11/05/18 at 12:16 ; Status DC Heparin Sodium (Porcine) (Heparin Sodium) 10,000 unit STK-MED ONCE .ROUTE ; Start 11/05/18 at 11:37; Stop 11/05/18 at 11:38; Status DC Heparin Sodium/ Sodium Chloride 500 ml @ As Directed STK-MED ONCE .ROUTE ; Start 11/05/18 at 11:07; Stop 11/05/18 at 11:08; Status DC Heparin Sodium/ Sodium Chloride 500 ml @ As Directed STK-MED ONCE .ROUTE ; Start 11/05/18 at 11:10; Stop 11/05/18 at 11:11; Status DC Heparin Sodium/ Sodium Chloride (HEPARIN for ARTERIAL LINE FLUSH) 1,000 unit 1X ONCE IART Last administered on 11/05/18at 12:54; Start 11/05/18 at 12:15; Stop 11/05/18 at 12:16; Status DC Info (CONTRAST GIVEN -- Rx MONITORING) 1 each PRN DAILY PRN MC SEE COMMENTS; Start 11/05/18 at 13:15; Stop 11/07/18 at 13:14 Iodixanol (Visipaque 320) 45 ml 1X ONCE IV Last administered on 11/05/18at 12: 30; Start 11/05/18 at 13:15; Stop 11/05/18 at 13:16; Status DC Lidocaine HCl (Lidocaine 1% 20ml Vial) 7 ml 1X ONCE INJ Last administered on at 12:56; Start 11/05/18 at 12:15; Stop 11/05/18 at 12:16; Status DC Lidocaine/ Epinephrine (LIDOCAINE 1%-EPI 1:100,000 Multi-Dose) 20 ml STK-MED ONCE .ROUTE ; Start 11/06/18 at 10:09; Stop 11/06/18 at 10:10; Status DC Midazolam HCl (Versed) 2 mg 1X ONCE IV Last administered on 11/05/18at 12:58; Start 11/05/18 at 12:15; Stop 11/05/18 at 12:16; Status DC Midazolam HCl (Versed) 2 mg STK-MED ONCE .ROUTE ; Start 11/05/18 at 11:36; Stop 11/05/18 at 11:37; Status DC Potassium Chloride (Klor-Con) 20 meq 1X ONCE PO Last administered on at 17:35; Start 11/05/18 at 16:30; Stop 11/05/18 at 16:31; Status DC Vitals/I & O Vital Sign - Last 24 Hours 11/05/18 11/05/18 11/05/18 11/05/18 11:00 12:57 13:05 13:53 Temp 97.7 97.7 Pulse 87 87 Resp 18 15 15 B/P (MAP) 121/64 (83) 188/73 Pulse Ox 100 97 100 O2 Delivery Room Air Nasal Cannula Nasal Cannula O2 Flow Rate 2.0 2.0 11/05/18 11/05/18 11/05/18 11/05/18 13:54 13:54 15:00 17:35 Temp 98.0 98.0 Pulse 81 Resp 18 B/P (MAP) 188/73 188/73 126/58 (80) 123/70 Pulse Ox 98 O2 Delivery Room Air 11/05/18 11/05/18 11/05/18 11/06/18 19:40 22:08 23:40 03:40 Temp 97.8 97.9 97.6 97.8 97.9 97.6 Pulse 75 75 74 77 Resp 18 18 18 B/P (MAP) 134/49 (77) 134/49 114/52 (72) 141/48 (79) Pulse Ox 98 99 99 O2 Delivery Room Air Room Air Room Air 11/06/18 11/06/18 11/06/18 11/06/18 07:00 08:00 09:16 09:17 Temp 98.4 98.4 Pulse 80 80 80 Resp 18 B/P (MAP) 183/70 (107) 183/70 183/70 Pulse Ox 98 O2 Delivery Room Air Room Air O2 Flow Rate 2.0 11/06/18 09:17 Pulse 80 B/P (MAP) 183/70 Intake and Output 11/05/18 11/05/18 11/06/18 15:00 23:00 07:00 Intake Total 780 ml Output Total 352 ml Balance 428 ml AUGUSTO BRUNER MD Nov 06, 2018 10:33
--- NOTE | 2018-11-06 10:42 | PDOC ---
PROGRESS NOTES Subjective Subjective "I haven't walked at all while I've been here. I could walk before coming to the hospital." Objective Objective Vascular Surgery - POD#4 Amputations of toes 1 and 2 left foot with excisional debridement right heel; POD#1 Right SFA athrectomy and angioplasty; right PT angioplasty O: Patient examined at the bedside. Phlebotomy in room and unable to draw blood for labs. Patient without complaint. RLE: Palpable right DP pulse. Foot warm. Right heel ulcer without new onset of drainage. Tissue bed healthy. No evidence of site cellulitis. LLE: Groin puncture site without hematoma. Mild ecchymosis to site. Left toe amp incisions intact and without drainage. No erythema to surrounding tissue. Has a crusted ulcer to tip of 3rd toe. No drainage. Palpable DP pulse. Assessment/Plan: 1. Diabetic toe gangrene. POD#4 Amp of toes #1 and 2 left foot with primary closure. Healing well. Continue to utilize surgical offloading shoe with ambulation. 2. Peripheral arterial disease. POD#1 Angioplasty to right SFA and PT arteries. Improved arterial circulation into RLE to promote right heel ulcer healing. Needs to remain on dual antiplatelet therapy of Plavix and ASA upon discharge. 3. Progress activity with PT/OT. I spoke with RN and physical therapist. Will obtain an offloading shoe for the right foot to the heel as patient unable to grasp concept of toe touch only and creates a fall risk. 4. Chronic kidney disease, status post renal transplant. Creatinine stable 1.4 today, post arteriogram yesterday and improved since admission. 5. Hypertension. Continues to have uncontrolled BP's while hospitalized. Will leave for attending to address as needed. 6. Diabetes. Attempting to tighten control. Sugars labile with multiple NPO statuses. Hopefully this will stabilize. 7. Ok to discharge to facility when deemed medically stable. Patient states this will happen tomorrow. Vascular Surgery follow up already has been arranged and on the chart. Vital Signs Date Time Temp Pulse Resp B/P (MAP) Pulse Ox O2 Delivery O2 Flow Rate FiO2 11/06/18 09:17 80 183/70 11/06/18 08:00 Room Air 2.0 11/06/18 07:00 98.4 18 98 98.4 Intake and Output 11/06/18 07:00 Intake Total 780 ml Output Total 352 ml Balance 428 ml Intake Oral 780 ml Output Urine Total 350 ml Stool Total 2 ml # Voids 8 # Bowel Movements 3 Assessment Assessment Problems Medical Problems: (1) Anxiety Status: Acute (2) Dementia Status: Acute (3) Diabetic foot ulcers Status: Acute (4) Hyperglycemia Status: Acute (5) Uncontrolled diabetes mellitus Status: Acute Comment Review of Relevant I have reviewed the following items warner (where applicable) has been applied. Labs Laboratory Tests Test 11/04/18 11:49 11/04/18 13:20 11/04/18 16:47 11/04/18 20:34 Glucose (Fingerstick) 125 mg/dL (70-99) 242 mg/dL (70-99) 225 mg/dL (70-99) Sodium Level 146 mmol/L (136-145) Potassium Level 3.4 mmol/L (3.5-5.1) Chloride Level 111 mmol/L (98-107) Carbon Dioxide Level 24 mmol/L (21-32) Anion Gap 11 (6-14) Blood Urea Nitrogen 28 mg/dL (7-20) Creatinine 1.8 mg/dL (0.6-1.0) Estimated GFR (Cockcroft-Gault) 34.2 Glucose Level 211 mg/dL (70-99) Calcium Level 9.4 mg/dL (8.5-10.1) Test 11/05/18 07:48 11/05/18 08:08 11/05/18 16:49 11/05/18 21:52 Glucose (Fingerstick) 92 mg/dL (70-99) 70 mg/dL (70-99) 77 mg/dL (70-99) White Blood Count 10.1 x10^3/uL (4.0-11.0) Red Blood Count 3.71 x10^6/uL (3.50-5.40) Hemoglobin 9.4 g/dL (12.0-15.5) Hematocrit 30.4 % (36.0-47.0) Mean Corpuscular Volume 82 fL (79-100) Mean Corpuscular Hemoglobin 25 pg (25-35) Mean Corpuscular Hemoglobin Concent 31 g/dL (31-37) Red Cell Distribution Width 16.3 % (11.5-14.5) Platelet Count 293 x10^3/uL (140-400) Neutrophils (%) (Auto) 68 % (31-73) Lymphocytes (%) (Auto) 18 % (24-48) Monocytes (%) (Auto) 10 % (0-9) Eosinophils (%) (Auto) 4 % (0-3) Basophils (%) (Auto) 0 % (0-3) Neutrophils # (Auto) 6.9 x10^3uL (1.8-7.7) Lymphocytes # (Auto) 1.8 x10^3/uL (1.0-4.8) Monocytes # (Auto) 1.0 x10^3/uL (0.0-1.1) Eosinophils # (Auto) 0.4 x10^3/uL (0.0-0.7) Basophils # (Auto) 0.0 x10^3/uL (0.0-0.2) Sodium Level 152 mmol/L (136-145) Potassium Level 3.1 mmol/L (3.5-5.1) Chloride Level 114 mmol/L (98-107) Carbon Dioxide Level 23 mmol/L (21-32) Anion Gap 15 (6-14) Blood Urea Nitrogen 23 mg/dL (7-20) Creatinine 1.6 mg/dL (0.6-1.0) Estimated GFR (Cockcroft-Gault) 39.1 Glucose Level 86 mg/dL (70-99) Calcium Level 9.6 mg/dL (8.5-10.1) Test 11/06/18 02:52 11/06/18 03:42 11/06/18 04:12 11/06/18 07:22 Glucose (Fingerstick) 36 mg/dL (70-99) 44 mg/dL (70-99) 204 mg/dL (70-99) 185 mg/dL (70-99) Test 11/06/18 09:55 Sodium Level 142 mmol/L (136-145) Potassium Level 4.1 mmol/L (3.5-5.1) Chloride Level 110 mmol/L (98-107) Carbon Dioxide Level 20 mmol/L (21-32) Anion Gap 12 (6-14) Blood Urea Nitrogen 18 mg/dL (7-20) Creatinine 1.4 mg/dL (0.6-1.0) Estimated GFR (Cockcroft-Gault) 45.7 Glucose Level 164 mg/dL (70-99) Calcium Level 9.6 mg/dL (8.5-10.1) Magnesium Level 1.8 mg/dL (1.8-2.4) Laboratory Tests Test 11/05/18 16:49 11/05/18 21:52 11/06/18 02:52 11/06/18 03:42 Glucose (Fingerstick) 70 mg/dL (70-99) 77 mg/dL (70-99) 36 mg/dL (70-99) 44 mg/dL (70-99) Test 11/06/18 04:12 11/06/18 07:22 11/06/18 09:55 Glucose (Fingerstick) 204 mg/dL (70-99) 185 mg/dL (70-99) Sodium Level 142 mmol/L (136-145) Potassium Level 4.1 mmol/L (3.5-5.1) Chloride Level 110 mmol/L (98-107) Carbon Dioxide Level 20 mmol/L (21-32) Anion Gap 12 (6-14) Blood Urea Nitrogen 18 mg/dL (7-20) Creatinine 1.4 mg/dL (0.6-1.0) Estimated GFR (Cockcroft-Gault) 45.7 Glucose Level 164 mg/dL (70-99) Calcium Level 9.6 mg/dL (8.5-10.1) Magnesium Level 1.8 mg/dL (1.8-2.4) Microbiology 11/03/18 Blood Culture - Preliminary, Resulted NO GROWTH AFTER 2 DAYS 10/31/18 Anaerobic/Aerobic Culture - Preliminary, Resulted 10/31/18 Anaerobic Culture Result 1 (LYN) - Preliminary, Resulted 10/31/18 Aerobic Culture - Final, Resulted 10/31/18 Aerobic Culture Result 1 (LYN) - Final, Resulted 10/31/18 Antimicrobic Susceptibility - Final, Resulted 10/31/18 Gram Stain - Final, Resulted 10/31/18 Gram Stain Result 1 (LYN) - Final, Resulted 10/31/18 Gram Stain Result 2 (LNY) - Final, Resulted Medications Current Medications Cefazolin Sodium/ Dextrose 50 ml @ 100 mls/hr 1X ONCE IV Last administered on 10/30/18at 13:01; Start 10/30/18 at 13:00; Stop 10/30/18 at 13:29; Status DC Vancomycin HCl 250 ml @ 250 mls/hr 1X ONCE IV Last administered on 10/30/18 14:53; Start 10/30/18 at 13:00; Stop 10/30/18 at 13:59; Status DC Alprazolam (Xanax) 0.25 mg PRN BID PRN PO ANXIETY / AGITATION Last administered on 11/04/18 21:08; Start 10/30/18 at 15:15 Aspirin (Gurwinder Aspirin) 325 mg DAILY PO Last administered on 11/06/18 09:18; Start 10/30/18 at 17:00 Atorvastatin Calcium (Lipitor) 80 mg QHS PO Last administered on 11/05/18 22: 08; Start 10/30/18 at 21:00 Bisacodyl (Dulcolax Tab) 20 mg DAILY PO Last administered on 11/06/18 09:17; Start 10/31/18 at 09:00 Carvedilol (Coreg) 12.5 mg BIDWMEALS PO Last administered on 11/06/18 09:17; Start 10/30/18 at 17:00 Ferrous Sulfate (Feosol) 325 mg DAILY PO Last administered on 11/06/18 09:18; Start 10/30/18 at 17:00 Vitamin B Complex/ Vitamin C (Vicki-Stacey) 1 tab DAILY PO Last administered on 09:17; Start 10/30/18 at 17:00 Furosemide (Lasix) 40 mg DAILY PO Last administered on 11/06/18 09:18; Start 10/30/18 at 17:00 Acetaminophen/ Hydrocodone Bitart (Lortab 7.5/325) 1 tab PRN Q4HRS PRN PO PAIN Last administered on 11/03/18 01:29; Start 10/30/18 at 15:15 Levetiracetam (Keppra) 500 mg BID PO Last administered on 11/06/18 09:17; Start 10/30/18 at 21:00 Lisinopril (Prinivil) 10 mg DAILY PO Last administered on 11/06/18 09:16; Start 10/30/18 at 17:00 Metoclopramide HCl (Reglan) 5 mg TIDAC PO Last administered on 11/06/18 09:18 ; Start 10/30/18 at 16:30 Pantoprazole Sodium (Protonix) 40 mg DAILY PO Last administered on 11/06/18 09 :18; Start 10/30/18 at 17:00 Prednisone (Prednisone) 5 mg DAILY PO Last administered on 11/06/18 09:17; Start 10/30/18 at 17:00 Fluconazole (Diflucan) 200 mg DAILY PO Last administered on 11/06/18 09:18; Start 10/31/18 at 09:00 Non-Formulary Medication (Fluconazole (Diflucan)) 1 tab DAILY PO ; Start at 09:00; Status UNV Hydralazine HCl (Apresoline) 50 mg TID PO Last administered on 11/06/18 09:17 ; Start 10/30/18 at 21:00 Insulin Human Lispro (HumaLOG) 6 units TIDWMEALS SQ Last administered on 09:25; Start 10/30/18 at 17:00 Insulin Glargine (Lantus) 40 units QHS SQ Last administered on 11/05/18 22:15 ; Start 10/30/18 at 21:00 Mycophenolate Sodium (Myfortic) 180 mg BID PO Last administered on 11/06/18 09 :16; Start 10/30/18 at 21:00 Tacrolimus (Prograf) 0.5 mg QHS PO Last administered on 11/05/18 22:08; Start 10/30/18 at 21:00 Cefazolin Sodium 1 gm/Dextrose 50 ml @ 100 mls/hr Q8HRS IV Last administered on 10/31/18 06:21; Start 10/30/18 at 22:00; Stop 10/31/18 at 13:59; Status DC Insulin Human Lispro (HumaLOG) 0-7 UNITS TIDWMEALS SQ Last administered on 11/06 09:25; Start 10/30/18 at 17:00 Dextrose (Dextrose 50%-Water Syringe) 12.5 gm PRN Q15MIN PRN IV SEE COMMENTS Last administered on 11/06/18 03:48; Start 10/30/18 at 15:15 Heparin Sodium (Porcine) (Heparin Sodium) 5,000 unit Q12HR SQ Last administered on 10/31/18 20:50; Start 10/30/18 at 21:00; Stop 11/01/18 at 10:18; Status DC Lorazepam (Ativan) 1 mg 1X ONCE IV Last administered on 10/30/18at 15:50; Start 10/30/18 at 15:30; Stop 10/30/18 at 15:54; Status DC Hydralazine HCl (Apresoline Inj) 10 mg PRN Q6HRS PRN IVP ELEVATED BP, SEE COMMENTS Last administered on 11/02/18at 08:07; Start 10/30/18 at 18:15 Sodium Chloride 1,000 ml @ 80 mls/hr [id number] IV ; Start 10/31/18 at 10:00; Stop 10/31/18 at 11:09; Status DC Sodium Chloride 1,000 ml @ 100 mls/hr Q10H IV Last administered on 11/03/18at 08 :08; Start 10/31/18 at 11:00; Stop 11/03/18 at 11:33; Status DC Lactobacillus Rhamnosus (Culturelle) 1 cap BID PO Last administered on at 15:57; Start 10/31/18 at 21:00; Stop 11/01/18 at 16:27; Status DC Multivitamins (Thera M Plus) 1 tab DAILY PO Last administered on 11/06/18at 09: 17; Start 10/31/18 at 15:00 Piperacillin Sod/ Tazobactam Sod 2.25 gm/Sodium Chloride 50 ml @ 100 mls/hr Q6HRS IV Last administered on 11/06/18at 00:11; Start 10/31/18 at 14:30 Linezolid (Zyvox) 600 mg BID PO Last administered on 10/31/18at 20:48; Start 10/31 at 14:30; Stop 10/31/18 at 21:00; Status DC Daptomycin 500 mg/ Sodium Chloride 50 ml @ 100 mls/hr Q24H IV Last administered on 11/03/18 15:28; Start 10/31/18 at 15:00; Stop 11/04/18 at 13:58; Status DC Loperamide HCl (Imodium) 2 mg PRN Q6HRS PRN PO DIARRHEA Last administered on 11/01/18at 17:44; Start 10/31/18 at 19:00 Iodixanol (Visipaque 320) 100 ml STK-MED ONCE .ROUTE ; Start 11/01/18 at 13:17; Stop 11/01/18 at 13:18; Status DC Lidocaine HCl (Lidocaine 1% 20ml Vial) 20 ml STK-MED ONCE .ROUTE ; Start at 13:17; Stop 11/01/18 at 13:18; Status DC Heparin Sodium/ Sodium Chloride 1,000 ml @ As Directed STK-MED ONCE .ROUTE ; Start 11/01/18 at 13:17; Stop 11/01/18 at 13:18; Status DC Midazolam HCl (Versed) 2 mg STK-MED ONCE .ROUTE ; Start 11/01/18 at 14:11; Stop 11/01/18 at 14:12; Status DC Fentanyl Citrate (Fentanyl 2ml Vial) 100 mcg STK-MED ONCE .ROUTE ; Start at 14:12; Stop 11/01/18 at 14:13; Status DC Heparin Sodium/ Sodium Chloride (HEPARIN for ARTERIAL LINE FLUSH) 1,000 unit 1X ONCE IART Last administered on 11/01/18at 15:10; Start 11/01/18 at 15:00; Stop 11/01/18 at 15:01; Status DC Midazolam HCl (Versed) 2 mg 1X ONCE IV Last administered on 11/01/18at 15:12; Start 11/01/18 at 15:00; Stop 11/01/18 at 15:01; Status DC Fentanyl Citrate (Fentanyl 2ml Vial) 100 mcg 1X ONCE IV Last administered on at 15:12; Start 11/01/18 at 15:00; Stop 11/01/18 at 15:01; Status DC Iodixanol (Visipaque 320) 100 ml 1X ONCE IART Last administered on 11/01/18at 15 :10; Start 11/01/18 at 15:00; Stop 11/01/18 at 15:01; Status DC Lidocaine HCl (Lidocaine 1% 20ml Vial) 7 ml 1X ONCE INJ Last administered on at 15:11; Start 11/01/18 at 15:00; Stop 11/01/18 at 15:01; Status DC Info (CONTRAST GIVEN -- Rx MONITORING) 1 each PRN DAILY PRN MC SEE COMMENTS; Start 11/01/18 at 15:00; Stop 11/03/18 at 14:59; Status DC Morphine Sulfate (Morphine Sulfate) 1 mg PRN Q10MIN PRN IV SEVERE PAIN; Start 11/02/18 at 10:15; Stop 11/02/18 at 18:00; Status DC Ringer's Solution 1,000 ml @ 30 mls/hr Q24H IV ; Start 11/02/18 at 10:06; Stop 11/02/18 at 18:00; Status DC Lidocaine HCl (Xylocaine-Mpf 1% 2ml Vial) 2 ml 1X PRN PRN ID IV START; Start at 10:15; Stop 11/02/18 at 18:00; Status DC Hydromorphone HCl (Dilaudid) 0.5 mg PRN Q10MIN PRN IV SEV PAIN, Second choice; Start 11/02/18 at 10:15; Stop 11/02/18 at 18:00; Status DC Sodium Chloride 1,000 ml @ 100 mls/hr Q10H IV ; Start 11/04/18 at 18:00; Stop 11/04/18 at 18:00; Status DC Dexamethasone Sodium Phosphate (Decadron) 20 mg STK-MED ONCE .ROUTE ; Start 11/02 at 13:21; Stop 11/02/18 at 13:22; Status DC Propofol 0 ml @ As Directed STK-MED ONCE IV ; Start 11/02/18 at 13:21; Stop at 13:22; Status DC Lidocaine HCl (Lidocaine Pf 2% Vial) 5 ml STK-MED ONCE .ROUTE ; Start 11/02/18 at 13:21; Stop 11/02/18 at 13:22; Status DC Ondansetron HCl (Zofran) 4 mg STK-MED ONCE .ROUTE ; Start 11/02/18 at 13:21; Stop 11/02/18 at 13:22; Status DC Famotidine (Pepcid Vial) 20 mg STK-MED ONCE .ROUTE ; Start 11/02/18 at 13:21; Stop 11/02/18 at 13:22; Status DC Midazolam HCl (Versed) 2 mg STK-MED ONCE .ROUTE ; Start 11/02/18 at 13:23; Stop 11/02/18 at 13:24; Status DC Fentanyl Citrate (Fentanyl 2ml Vial) 100 mcg STK-MED ONCE .ROUTE ; Start at 13:23; Stop 11/02/18 at 13:24; Status DC Ephedrine Sulfate (Akovaz) 50 mg STK-MED ONCE .ROUTE ; Start 11/02/18 at 15:03; Stop 11/02/18 at 15:04; Status DC Sevoflurane (Ultane) 60 ml STK-MED ONCE IH ; Start 11/02/18 at 15:35; Stop at 15:36; Status DC Sevoflurane (Ultane) 30 ml STK-MED ONCE IH ; Start 11/02/18 at 15:36; Stop at 15:37; Status DC Sodium Chloride (SODIUM CHLORIDE 20ml) 20 ml STK-MED ONCE IJ ; Start 11/02/18 at 15:36; Stop 11/02/18 at 15:37; Status DC Sodium Chloride 1,000 ml @ 100 mls/hr Q10H IV Last administered on 11/04/18at 21:09; Start 11/04/18 at 20:00; Stop 11/05/18 at 18:00; Status DC Iodixanol (Visipaque 320) 100 ml STK-MED ONCE .ROUTE ; Start 11/05/18 at 10:04; Stop 11/05/18 at 10:05; Status DC Lidocaine HCl (Lidocaine 1% 20ml Vial) 20 ml STK-MED ONCE .ROUTE ; Start at 10:04; Stop 11/05/18 at 10:05; Status DC Heparin Sodium/ Sodium Chloride 0 ml @ As Directed STK-MED ONCE .ROUTE ; Start 11/05/18 at 10:04; Stop 11/05/18 at 10:05; Status DC Heparin Sodium/ Sodium Chloride 500 ml @ As Directed STK-MED ONCE .ROUTE ; Start 11/05/18 at 11:07; Stop 11/05/18 at 11:08; Status DC Heparin Sodium/ Sodium Chloride 500 ml @ As Directed STK-MED ONCE .ROUTE ; Start 11/05/18 at 11:10; Stop 11/05/18 at 11:11; Status DC Midazolam HCl (Versed) 2 mg STK-MED ONCE .ROUTE ; Start 11/05/18 at 11:36; Stop 11/05/18 at 11:37; Status DC Fentanyl Citrate (Fentanyl 2ml Vial) 100 mcg STK-MED ONCE .ROUTE ; Start at 11:36; Stop 11/05/18 at 11:37; Status DC Heparin Sodium (Porcine) (Heparin Sodium) 10,000 unit STK-MED ONCE .ROUTE ; Start 11/05/18 at 11:37; Stop 11/05/18 at 11:38; Status DC Heparin Sodium (Porcine) (Heparin Sodium) 2,500 unit 1X ONCE IART ; Start 11/05 at 12:15; Stop 11/05/18 at 12:16; Status DC Heparin Sodium/ Sodium Chloride (HEPARIN for ARTERIAL LINE FLUSH) 1,000 unit 1X ONCE IART Last administered on 11/05/18at 12:54; Start 11/05/18 at 12:15; Stop 11/05/18 at 12:16; Status DC Midazolam HCl (Versed) 2 mg 1X ONCE IV Last administered on 11/05/18at 12:58; Start 11/05/18 at 12:15; Stop 11/05/18 at 12:16; Status DC Fentanyl Citrate (Fentanyl 2ml Vial) 100 mcg 1X ONCE IV Last administered on at 12:57; Start 11/05/18 at 12:15; Stop 11/05/18 at 12:16; Status DC Heparin Sodium (Porcine) (Heparin Sodium) 4,000 unit 1X ONCE IV Last administered on 11/05/18at 12:15; Start 11/05/18 at 12:15; Stop 11/05/18 at 12:16 ; Status DC Lidocaine HCl (Lidocaine 1% 20ml Vial) 7 ml 1X ONCE INJ Last administered on at 12:56; Start 11/05/18 at 12:15; Stop 11/05/18 at 12:16; Status DC Clopidogrel Bisulfate (Plavix) 150 mg 1X ONCE PO Last administered on at 12:55; Start 11/05/18 at 13:00; Stop 11/05/18 at 13:01; Status DC Clopidogrel Bisulfate (Plavix) 75 mg STK-MED ONCE .ROUTE ; Start 11/05/18 at 12: 52; Stop 11/05/18 at 12:53; Status DC Clopidogrel Bisulfate (Plavix) 75 mg DAILYWBKFT PO Last administered on at 09:18; Start 11/06/18 at 08:00 Iodixanol (Visipaque 320) 45 ml 1X ONCE IV Last administered on 11/05/18at 12: 30; Start 11/05/18 at 13:15; Stop 11/05/18 at 13:16; Status DC Info (CONTRAST GIVEN -- Rx MONITORING) 1 each PRN DAILY PRN MC SEE COMMENTS; Start 11/05/18 at 13:15; Stop 11/07/18 at 13:14 Bacitracin 1 bebo BID TP Last administered on 11/06/18at 09:00; Start 11/05/18 at 16:00 Potassium Chloride (Klor-Con) 20 meq 1X ONCE PO Last administered on at 17:35; Start 11/05/18 at 16:30; Stop 11/05/18 at 16:31; Status DC Lidocaine/ Epinephrine (LIDOCAINE 1%-EPI 1:100,000 Multi-Dose) 20 ml STK-MED ONCE .ROUTE ; Start 11/06/18 at 10:09; Stop 11/06/18 at 10:10; Status DC Heparin Sodium (Porcine) (Hep Lock Adult) 500 unit STK-MED ONCE IV ; Start 11/06 at 10:09; Stop 11/06/18 at 10:10; Status DC Active Scripts Active Diflucan (Fluconazole) 100 Mg Tablet 200 Mg PO DAILY Reported Hydralazine Hcl 50 Mg Tablet 1 Tab PO TID Guaifenesin 100 Mg/5 Ml Liquid 100 Mg PO Dulcolax (Bisacodyl) 5 Mg Tablet.dr 4 Tab PO DAILY Myfortic (Mycophenolate Sodium) 180 Mg Tablet.dr 180 Mg PO BID Diflucan (Fluconazole) 200 Mg Tablet 1 Tab PO DAILY Ferrous Sulfate 325 Mg Tablet 1 Tab PO DAILY Lortab 7.5-325 mg Tablet (Hydrocodone/Acetaminophen) 1 Each Tablet 1 Tab PO PRN Q4HRS PRN Lasix (Furosemide) 40 Mg Tablet 1 Tab PO DAILY Prograf (Tacrolimus) 1 Mg Capsule 0.5 Mg PO HS Levemir (Insulin Detemir) 100 Unit/1 Ml Vial 40 Unit SQ QHS Lisinopril 10 Mg Tablet 1 Tab PO DAILY Xanax (Alprazolam) 0.25 Mg Tablet 0.25 Mg PO PRN BID PRN Nephro-Stacey Tablet (Folic Acid/Vitamin B Comp W-C) 0.8 Mg Tablet 1 Tab PO DAILY Myfortic (Mycophenolate Sodium) 180 Mg Tablet. 180 Mg PO BID [meds reviewed] Coreg (Carvedilol) 6.25 Mg Tablet 12.5 Mg PO BIDWMEALS Atorvastatin Calcium 40 Mg Tablet 2 Tab PO QHS Prednisone 5 Mg Tablet 5 Mg PO DAILY Metoclopramide Hcl 5 Mg Tablet 5 Mg PO TIDAC Levetiracetam 500 Mg Tablet 500 Mg PO BID Novolog (Insulin Aspart) 100 Unit/1 Ml Cartridge 6 Unit SQ TIDWMEALS Aspirin 325 Mg Tablet 325 Mg PO DAILY Protonix (Pantoprazole Sodium) 40 Mg Tablet.dr 40 Mg PO DAILY Vitals/I & O Vital Sign - Last 24 Hours 11/05/18 11/05/18 11/05/18 11/05/18 11:00 12:57 13:05 13:53 Temp 97.7 97.7 Pulse 87 87 Resp 18 15 15 B/P (MAP) 121/64 (83) 188/73 Pulse Ox 100 97 100 O2 Delivery Room Air Nasal Cannula Nasal Cannula O2 Flow Rate 2.0 2.0 11/05/18 11/05/18 11/05/18 11/05/18 13:54 13:54 15:00 17:35 Temp 98.0 98.0 Pulse 81 Resp 18 B/P (MAP) 188/73 188/73 126/58 (80) 123/70 Pulse Ox 98 O2 Delivery Room Air 11/05/18 11/05/18 11/05/18 11/06/18 19:40 22:08 23:40 03:40 Temp 97.8 97.9 97.6 97.8 97.9 97.6 Pulse 75 75 74 77 Resp 18 18 18 B/P (MAP) 134/49 (77) 134/49 114/52 (72) 141/48 (79) Pulse Ox 98 99 99 O2 Delivery Room Air Room Air Room Air 11/06/18 11/06/18 11/06/18 11/06/18 07:00 08:00 09:16 09:17 Temp 98.4 98.4 Pulse 80 80 80 Resp 18 B/P (MAP) 183/70 (107) 183/70 183/70 Pulse Ox 98 O2 Delivery Room Air Room Air O2 Flow Rate 2.0 11/06/18 09:17 Pulse 80 B/P (MAP) 183/70 Intake and Output 11/05/18 11/05/18 11/06/18 15:00 23:00 07:00 Intake Total 780 ml Output Total 352 ml Balance 428 ml DANTE MEEKS APRN Nov 06, 2018 10:42
--- NOTE | 2018-11-06 10:43 | PDOC ---
Infectious Disease Note Subjective Subjective Comfortable, denies pain Feels a little cold but hungry Denies F/C/N/V/D/pain/SOA ROS ROS o/w neg Vital Sign Vital Signs Vital Signs Date Time Temp Pulse Resp B/P (MAP) Pulse Ox O2 Delivery O2 Flow Rate FiO2 11/06/18 09:17 80 183/70 11/06/18 08:00 Room Air 2.0 11/06/18 07:00 98.4 18 98 98.4 Physical Exam PHYSICAL EXAM GENERAL: Sitting on side of bed, alert, NAD HEENT: Oral mucosa moist. Edentulous NECK: Supple. LUNGS: Clear bilaterally. No wheezing. HEART: S1, S2 with no gallops or murmurs. ABDOMEN: Soft, nontender EXTREMITIES: RUE less swollen, + blisters, forearm bandaged. Left toe wounds are clean with some forefoot discoloration. 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 Grossly nonfocal. SKIN: without rash LUE fistula clean PIV ok Labs Lab Laboratory Tests Test 11/05/18 16:49 11/05/18 21:52 11/06/18 02:52 11/06/18 03:42 Glucose (Fingerstick) 70 mg/dL (70-99) 77 mg/dL (70-99) 36 mg/dL (70-99) 44 mg/dL (70-99) Test 11/06/18 04:12 11/06/18 07:22 11/06/18 09:55 Glucose (Fingerstick) 204 mg/dL (70-99) 185 mg/dL (70-99) Sodium Level 142 mmol/L (136-145) Potassium Level 4.1 mmol/L (3.5-5.1) Chloride Level 110 mmol/L (98-107) Carbon Dioxide Level 20 mmol/L (21-32) Anion Gap 12 (6-14) Blood Urea Nitrogen 18 mg/dL (7-20) Creatinine 1.4 mg/dL (0.6-1.0) Estimated GFR (Cockcroft-Gault) 45.7 Glucose Level 164 mg/dL (70-99) Calcium Level 9.6 mg/dL (8.5-10.1) Magnesium Level 1.8 mg/dL (1.8-2.4) Micro Microbiology 11/03/18 Blood Culture - Preliminary, Resulted NO GROWTH AFTER 2 DAYS 10/31/18 Anaerobic/Aerobic Culture, Resulted Pending 10/31/18 Anaerobic Culture Result 1 (LYN), Resulted Pending 10/31/18 Aerobic Culture - Final, Resulted 10/31/18 Aerobic Culture Result 1 (LYN) - Final, Resulted 10/31/18 Antimicrobic Susceptibility - Final, Resulted 10/31/18 Gram Stain - Final, Resulted 10/31/18 Gram Stain Result 1 (LYN) - Final, Resulted 10/31/18 Gram Stain Result 2 (LYN) - Final, Resulted Objective Assessment Bacteremia, MSSA 10/30. repeat BC 11/03 NGTD Left toes with gangrene, s/p angio, 11/01. s/p 1st and 2nd toe amputation, primary closure on 11/02. CoNS-oxacillin sensitive Right heel callus s/p excision on 11/02. Peripheral arterial disease.s/p angiogram, RLE PTCA 11/05 Chronic kidney disease, status post renal transplant. 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 Pt was on chronic suppressive fluconazole, though not seen on list from the [place] Acute kidney injury with chronic kidney disease. Hypertension. Coronary artery disease. Diabetes. RUE swelling, RUE US neg DVT - improving Plan Plan of Care Line placement toda F/u ECHO Discontinue Zosyn 11/06 - dose Cefazolin Cont fluconazole cryptococcal ag pending repeat BC 11/03 NGTD elevate RUE Wound care treatment. Supportive care. NHI REDDY MD Nov 06, 2018 10:43
[2018-11-06] MEDS ORDERED: fentaNYL PF VIAL 100 MCG/2 ML VIAL ONE (10:50)
[2018-11-06 11:00] VITALS: BP 163/54
[2018-11-06] MEDS ORDERED: diphenhydrAMINE 50 MG/ML VIAL ONE (11:07)
[2018-11-06] MEDS ORDERED: LIDOCAINE 1%/EPI 1:100,000 20 ML VIAL. IJ ONE (11:15)
[2018-11-06] MEDS ORDERED: diphenhydrAMINE 50 MG/ML VIAL IVP ONE (11:15)
[2018-11-06] MEDS ORDERED: fentaNYL PF VIAL 100 MCG/2 ML VIAL IV ONE (11:15)
--- NOTE | 2018-11-06 11:24 | PDOC ---
BRIEF OPERATIVE NOTE Pre-Op Diagnosis Infection Post-Op Diagnosis same Procedure Performed Tunnelled central line placement Surgeon Enrique Anesthesia Type: Local Findings right IJ tunnelled central line Complications No immediate RAFITA PALOMARES MD Nov 06, 2018 11:24
--- NOTE | 2018-11-06 11:28 | PDOC ---
Renal-Progress Notes Subjective Notes Notes NO NEW COMPLAINTS History of Present Illness Hx of present illness STABLE Vitals Vitals Vital Signs Date Time Temp Pulse Resp B/P (MAP) Pulse Ox O2 Delivery O2 Flow Rate FiO2 11/06/18 11:15 18 11/06/18 11:00 98.2 81 163/54 (90) 99 Room Air 98.2 11/06/18 08:00 2.0 Weight Weight [ ] I.O. Intake and Output Intake and Output 11/06/18 07:00 Intake Total 780 ml Output Total 352 ml Balance 428 ml Intake Oral 780 ml Output Urine Total 350 ml Stool Total 2 ml # Voids 8 # Bowel Movements 3 Labs Labs Laboratory Tests Test 11/05/18 16:49 11/05/18 21:52 11/06/18 02:52 11/06/18 03:42 Glucose (Fingerstick) 70 mg/dL (70-99) 77 mg/dL (70-99) 36 mg/dL (70-99) 44 mg/dL (70-99) Test 11/06/18 04:12 11/06/18 07:22 11/06/18 09:55 Glucose (Fingerstick) 204 mg/dL (70-99) 185 mg/dL (70-99) Sodium Level 142 mmol/L (136-145) Potassium Level 4.1 mmol/L (3.5-5.1) Chloride Level 110 mmol/L (98-107) Carbon Dioxide Level 20 mmol/L (21-32) Anion Gap 12 (6-14) Blood Urea Nitrogen 18 mg/dL (7-20) Creatinine 1.4 mg/dL (0.6-1.0) Estimated GFR (Cockcroft-Gault) 45.7 Glucose Level 164 mg/dL (70-99) Calcium Level 9.6 mg/dL (8.5-10.1) Magnesium Level 1.8 mg/dL (1.8-2.4) Micro Micro Microbiology 11/03/18 Blood Culture - Preliminary, Resulted NO GROWTH AFTER 3 DAYS 10/31/18 Anaerobic/Aerobic Culture - Preliminary, Resulted 10/31/18 Anaerobic Culture Result 1 (LYN) - Preliminary, Resulted 10/31/18 Aerobic Culture - Final, Resulted 10/31/18 Aerobic Culture Result 1 (LYN) - Final, Resulted 10/31/18 Antimicrobic Susceptibility - Final, Resulted 10/31/18 Gram Stain - Final, Resulted 10/31/18 Gram Stain Result 1 (LYN) - Final, Resulted 10/31/18 Gram Stain Result 2 (LYN) - Final, Resulted Review of Systems Constitutional: yes: weakness, alert, oriented Ears/Nose/Throat: Yes: no symptom reported Pulmonary: Yes no symptom reported Cardiovascular: Yes no symptom reported Gastrointestional: Yes: no symptom reported Genitourinary: Yes: no symptom reported Musculoskeletal: Yes: muscle stiffness, muscle atrophy Skin: Yes no symptom reported Psychiatric/Neurological: Yes: no symptom reported Endocrine: Yes: no symptom reported Physical Exam General Appearance: no apparent distress, cachetic, thin, alert, oriented Skin: warm Respiratory: bilateral CTA Heart: S1S2 Abdomen: soft, bowel sounds present Genitourinary: bladder flat Extremities: pulses present Neurology: alert, oriented, Ext weakness Musculoskeletal: Osteoarthritis Assessment Assessment IMP RENAL TX-STABLE CR OF 1.4 LOW K-CORRECTED HYPERNATREMIA-RESOLVED PAD DM II HTN PLAN CONT IMMUNOSUPPRESSANTS D/W ATTENDING WILL FOLLOW MO RODRIGUEZ MD Nov 06, 2018 11:28
[2018-11-06 13:26] LABS: BASO # 0.1 x10^3/uL (0.0-0.2); BASO % 1 % (0-3); EOS # 0.3 x10^3/uL (0.0-0.7); EOS % 3 % (0-3); HEMOGLOBIN 9.1 g/dL (12.0-15.5); LYMPH # 0.9 x10^3/uL (1.0-4.8); LYMPH % 9 % (24-48); MEAN CORPUSCULAR HEMOGLOBIN 26 pg (25-35); MEAN CORPUSCULAR HGB CONC 31 g/dL (31-37); MEAN CORPUSCULAR VOLUME 81 fL (79-100); MONO # 0.8 x10^3/uL (0.0-1.1); MONO % 8 % (0-9); NEUT # 8.3 x10^3uL (1.8-7.7); NEUT % 80 % (31-73); PLATELET COUNT 260 x10^3/uL (140-400); RED BLOOD COUNT 3.58 x10^6/uL (3.50-5.40); RED CELL DISTRIBUTION WIDTH 15.9 % (11.5-14.5); WHITE BLOOD COUNT 10.4 x10^3/uL (4.0-11.0)
[2018-11-06] MEDS ORDERED: ceFAZolin SODIUM 2 GM in IV DEXTROSE 5% 50 ML IV SCH (14:00)
[2018-11-06 14:36] VITALS: BP 154/64
--- NOTE | 2018-11-06 14:36 | NUR ---
SW following. Discussed with RN. Pt had PICC placed today and will need Ancef IV Q8, for two weeks possibly. SW confirming with [facility] if they are able to do this. YINA had to leave a voicemail with home administrator there. YINA will continue to follow.
--- NOTE | 2018-11-06 16:01 | CARD ---
MR#: [id number] Date of Study: 11/06/2018 Ordering Physician: DIAZ DARLING, Referring Physician: AUGUSTO BRUNER Tech: Martha Courtney ZAIRE APPROVED REPORT EXAM: Two-dimensional and M-mode echocardiogram with Doppler and color Doppler. Other Information Quality : Good INDICATION Non STEMI 2D DIMENSIONS RVDd2.0 (2.9-3.5cm)Left Atrium(2D)3.6 (1.6-4.0cm) IVSd1.0 (0.7-1.1cm)Aortic Root(2D)2.4 (2.0-3.7cm) LVDd4.5 (3.9-5.9cm)LVOT Diameter2.0 (1.8-2.4cm) PWd1.1 (0.7-1.1cm)LVDs2.9 (2.5-4.0cm) FS (%) 35.0 %SV59.3 ml LVEF(%)60.0 (>50%) Aortic Valve AoV Peak Sonny.203.1cm/sAoV VTI40.8cm AO Peak GR.16.5mmHgLVOT VTI 22.97cm AO Mean GR.9mmHg Mitral Valve MV E Xdckckcz752.4cm/sMV DECEL GLET098ko MV A Nuiurkot33.5cm/sE/A Ratio1.7 TDI Lateral E' P. V4.25cm/sMedial E' P. V4.44cm/s E/Lateral E'26.4E/Medial E'25.3 Tricuspid Valve TR P. Tyiafnbu672vl/sRAP TJBEQYXU0lsLc TR Peak Gr.39wwWtNSSE81emGu Pulmonary Vein S1 Uvwhyjbf93.2cm/sS2 Mnsbhxte41.61cm/s D2 Ioieogtd55.6cm/s LEFT VENTRICLE The left ventricle is normal size. There is normal left ventricular wall thickness. The left ventricu lar systolic function is normal. The Ejection Fraction is 55-60%. There is normal LV segmental wall m otion. Transmitral Doppler flow pattern is Grade II-pseudonormal filling dynamics. RIGHT VENTRICLE The right ventricle is normal size. The right ventricular systolic function is normal. ATRIA The left atrium size is normal. The right atrium size is normal. The interatrial septum is intact wit h no evidence for an atrial septal defect or patent foramen ovale as noted on 2-D or Doppler imaging. AORTIC VALVE The aortic valve is calcified but opens well. Doppler and Color Flow revealed no significant aortic r egurgitation. There is no significant aortic valvular stenosis. MITRAL VALVE The mitral valve is calcified but opens well. There is no evidence of mitral valve prolapse. There is no mitral valve stenosis. Doppler and Color-flow revealed mild mitral regurgitation. TRICUSPID VALVE The tricuspid valve is normal in structure and function. Doppler and Color Flow revealed trace tricus pid regurgitation. There is mild pulmonary hypertension. The PA pressure was estimated at 37 mmHg. Th ere is no tricuspid valve stenosis. PULMONIC VALVE The pulmonic valve is not well visualized. Doppler and Color Flow revealed trace to mild pulmonic stacey vular regurgitation. There is no pulmonic valvular stenosis. GREAT VESSELS The aortic root is normal in size. The ascending aorta is normal in size. The IVC is normal in size a nd collapses >50% with inspiration. PERICARDIAL EFFUSION There is no evidence of significant pericardial effusion. Critical Notification Critical Value: No <Conclusion> The left ventricular systolic function is normal. The Ejection Fraction is 55-60%. There is normal LV segmental wall motion. Mild mitral regurgitation. Trace tricuspid regurgitation. There is mild pulmonary hypertension. The PA pressure was estimated at 37 mmHg. There is no evidence of significant pericardial effusion. Signed by : Nnamdi Siu, Electronically Approved : 11/06/2018 16:00:46
--- NOTE | 2018-11-06 17:46 | NUR ---
Did not administer patient's sliding scale insulin at 1700 as the patient's blood glucose was at 159 and she was not eating.
[2018-11-06 19:00] VITALS: BP 151/51
[2018-11-06] MEDS ORDERED: INSULIN GLARGINE 300 UNITS/3 ML INSULN.PEN. SQ SCH (21:00)
[2018-11-06] MEDS: ATORVASTATIN CALCIUM 40 MG TABLET. PO SCH (22:16)
[2018-11-06] MEDS: TACROLIMUS 0.5 MG CAPSULE PO SCH (22:17)
[2018-11-06 22:37] VITALS: BP 148/57
[2018-11-07 03:00] VITALS: BP 141/52
[2018-11-07] MEDS: DEXTROSE 50% 25 GM / 50ML DISP.SYRIN. IV PRN (06:28)
[2018-11-07 07:00] VITALS: BP 145/68
[2018-11-07] MEDS: INSULIN LISPRO 300 UNITS/3 ML INSULN.PEN. SQ SCH ×4 (08:00→12:00)
--- NOTE | 2018-11-07 08:45 | RAD ---
Procedure: Fluoroscopic guided tunneled central line placement Clinical Indication: 63-year-old requiring long-term venous access Sedation: Local anesthesia only Antibiotics: Antibiotic was administered intravenously within 1 hour of the procedure start time. Exposure: Kerma-Area Product: 2 Gycm2 Contrast: None Sterility: All elements of maximal sterile barrier technique including the use of a cap, mask, sterile gown, sterile gloves, large sterile sheet, appropriate hand hygiene, and 2% chlorhexidine for cutaneous antisepsis (or acceptable alternative antiseptic per current guidelines) were followed for this procedure. If ultrasound guidance was utilized, sterile ultrasound techniques were followed including use of a sterile probe cover. Consent: The procedure was explained in its entirety to the patient or the patients designated patient financial representative by a member of the treatment team, including a discussion of the risks, benefits and commonly accepted alternatives to the procedure, as well as the expected consequences of no therapy whatsoever. Discussion of the risks included, but was not limited to, those that are most frequent and those that are rare but possibly severe or life-threatening, as well as the possibility of unforeseen complications. Technique and Findings: Following informed consent, the patient was prepped and draped in usual sterile fashion. Ultrasound interrogation of the right neck revealed patency and compressibility of the right internal jugular vein. A a 21-gauge micropuncture needle was used to gain access to the jugular vein under ultrasound guidance. A hardcopy ultrasound image was recorded. The needle was exchanged over wire for a peel-away sheath. The skin over the right anterior chest wall was then copiously anesthetized with 1% lidocaine, and a small dermatotomy was made. The double lumen tunneled power injectable central line was then tunneled subcutaneous a torsed right neck dermatotomy then deployed through the peel-away sheath under fluoroscopic guidance such that the distal tip resided in the proximal right atrium. Both lumens were assessed and found to flush and aspirate with ease. The lumens were then packed with heparin, capped, and the catheter was sutured to the skin. Dermabond was used to close the right neck dermatotomy. Complications: No immediate Impression: 1. Ultrasound and fluoroscopic guided placement of a tunneled right IJ central line as described. This line is power injectable and suitable for use.
[2018-11-07] MEDS: BACITRACIN TOPICAL OINT 14GM TUBE. TP SCH (09:00)
--- NOTE | 2018-11-07 09:18 | NUR ---
SW following. Discussed with RN, pt will need the IV Ancef Q8 for four to five weeks. YINA contacted [facility] ([phone]) again to determine if pt can return. Rustam at [facility] ([phone]) advised pt can return. RN notified. SW to await discharge paperwork and abx script.
[2018-11-07] MEDS: CARVEDILOL 6.25 MG TABLET. PO SCH (09:42)
[2018-11-07] MEDS: METOCLOPRAMIDE 5 MG TABLET. PO SCH ×2 (09:42→11:54)
[2018-11-07] MEDS: CLOPIDOGREL BISULFATE 75 MG TABLET PO SCH (09:43)
[2018-11-07] MEDS: FLUCONAZOLE 100 MG TABLET. PO SCH (09:44)
[2018-11-07] MEDS: BISACODYL 5 MG TABLET.DR. PO SCH (09:44)
[2018-11-07] MEDS: levETIRAcetam 500 MG TABLET PO SCH (09:44)
[2018-11-07] MEDS: ASPIRIN 325 MG TABLET PO SCH (09:44)
[2018-11-07] MEDS: FERROUS SULFATE 325 MG TABLET. PO SCH (09:44)
[2018-11-07] MEDS: LISINOPRIL 10 MG TABLET PO SCH (09:45)
[2018-11-07] MEDS: predniSONE 5 MG TABLET PO SCH (09:45)
[2018-11-07] MEDS: FUROSEMIDE 40 MG TABLET. PO SCH (09:45)
[2018-11-07] MEDS: MYCOPHENOLATE ACID 180 MG TABLET.DR. PO SCH (09:45)
[2018-11-07] MEDS: FOLIC/VIT B COMP W-C (RENAL) TABLET. PO SCH (09:45)
[2018-11-07] MEDS: PANTOPRAZOLE 40 MG TABLET.DR. PO SCH (09:45)
[2018-11-07] MEDS: MULTIVITAMIN with MINERAL TABLET. PO SCH (09:46)
--- NOTE | 2018-11-07 10:33 | PDOC ---
PROGRESS NOTES Subjective Subjective want to go back to [place] Objective Objective Vital Signs Date Time Temp Pulse Resp B/P (MAP) Pulse Ox O2 Delivery O2 Flow Rate FiO2 11/07/18 09:45 75 145/68 11/07/18 07:00 97.9 18 100 Room Air 97.9 11/06/18 08:00 2.0 Intake and Output 11/07/18 06:59 Intake Total 600 ml Balance 600 ml Intake Oral 600 ml # Voids 9 # Bowel Movements 4 Physical Exam Abdomen: Normal bowel sounds, Soft, Other (obese, healed midline scar) Heart: Regular rate, Normal S1, Normal S2 Extremities: Other General: Alert, Cooperative Lungs: Clear to auscultation MUSCULOSKELETAL: No swelling Neck: Supple Neuro: Normal speech Psych/Mental Status: Mood NL COMMENT dressings s/p toe amputations Diagnosis Problem List Problems Medical Problems: (1) Anxiety Status: Acute (2) Dementia Status: Acute (3) Diabetic foot ulcers Status: Acute (4) Hyperglycemia Status: Acute (5) Uncontrolled diabetes mellitus Status: Acute Assessment Assessment Problems Medical Problems: (1) Anxiety Status: Acute (2) Dementia Status: Acute (3) Diabetic foot ulcers Status: Acute (4) Hyperglycemia Status: Acute (5) Uncontrolled diabetes mellitus Status: Acute FINAL IMPRESSION: 1. 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 2. Peripheral vascular disease, severe. 3. Insulin-dependent diabetes. 4. Chronic kidney disease, history of kidney transplant. 5. History of immunosuppression. 6. History of disseminated cryptococcal disease. 7. History of seizures. 8. History of previous stroke. 9. Bypass surgery.CABG 10. Chronic systolic heart failure, ejection fraction around 40. 11.Lung Nodule ,benign on CT scan PLAN: Needs 5 weeks of IV antibiotics at [facility].ANCEF. d/c to [facility] today picc /poer port placed ECHO good LVF. spoke with renal. Arteriogram and intervention done yesterday cr 1.4,hydrate with fluids POD#5, lt foot 1,2 toe amputation, rt heal debridement Arteriogram done 11/01/18 doppler legs dec circulation below the knees. d/c iv hydration .cr1.3 stable iv antibiotics.Dapto+Zosyn blood c/s 1 in 4 bottles positive . wound c/s pending, gram positive rt arm blisters from iv infiltration. venous doppler neg for blood clots . spoke with pts daughter. Plan Plan of Care Problems Medical Problems: (1) Anxiety Status: Acute (2) Dementia Status: Acute (3) Diabetic foot ulcers Status: Acute (4) Hyperglycemia Status: Acute (5) Uncontrolled diabetes mellitus Status: Acute Comment Review of Relevant I have reviewed the following items warner (where applicable) has been applied. Labs Laboratory Tests Test 11/06/18 11:37 11/06/18 13:08 11/06/18 16:00 11/06/18 20:15 Glucose (Fingerstick) 63 mg/dL (70-99) 159 mg/dL (70-99) 126 mg/dL (70-99) White Blood Count 10.4 x10^3/uL (4.0-11.0) Red Blood Count 3.58 x10^6/uL (3.50-5.40) Hemoglobin 9.1 g/dL (12.0-15.5) Hematocrit 29.0 % (36.0-47.0) Mean Corpuscular Volume 81 fL (79-100) Mean Corpuscular Hemoglobin 26 pg (25-35) Mean Corpuscular Hemoglobin Concent 31 g/dL (31-37) Red Cell Distribution Width 15.9 % (11.5-14.5) Platelet Count 260 x10^3/uL (140-400) Neutrophils (%) (Auto) 80 % (31-73) Lymphocytes (%) (Auto) 9 % (24-48) Monocytes (%) (Auto) 8 % (0-9) Eosinophils (%) (Auto) 3 % (0-3) Basophils (%) (Auto) 1 % (0-3) Neutrophils # (Auto) 8.3 x10^3uL (1.8-7.7) Lymphocytes # (Auto) 0.9 x10^3/uL (1.0-4.8) Monocytes # (Auto) 0.8 x10^3/uL (0.0-1.1) Eosinophils # (Auto) 0.3 x10^3/uL (0.0-0.7) Basophils # (Auto) 0.1 x10^3/uL (0.0-0.2) Test 11/07/18 05:56 11/07/18 06:22 11/07/18 06:34 11/07/18 07:37 Glucose (Fingerstick) 56 mg/dL (70-99) 58 mg/dL (70-99) 160 mg/dL (70-99) 97 mg/dL (70-99) Microbiology 11/03/18 Blood Culture - Preliminary, Resulted NO GROWTH AFTER 3 DAYS 10/31/18 Anaerobic/Aerobic Culture - Final, Complete 10/31/18 Anaerobic Culture Result 1 (LYN) - Final, Complete 10/31/18 Aerobic Culture - Final, Complete 10/31/18 Aerobic Culture Result 1 (LYN) - Final, Complete 10/31/18 Antimicrobic Susceptibility - Final, Complete 10/31/18 Gram Stain - Final, Complete 10/31/18 Gram Stain Result 1 (LYN) - Final, Complete 10/31/18 Gram Stain Result 2 (LYN) - Final, Complete Medications Current Medications Cefazolin Sodium 50 ml @ 100 mls/hr 1X ONCE IV Last administered on at 11:15; Start 11/06/18 at 11:15; Stop 11/06/18 at 11:44; Status DC Cefazolin Sodium 50 ml @ As Directed STK-MED ONCE IV ; Start 11/06/18 at 10:50; Stop 11/06/18 at 10:51; Status DC Cefazolin Sodium 2 gm/Dextrose 50 ml @ 100 mls/hr Q8HRS IV ; Start 11/06/18 at 14:00; Stop 11/06/18 at 14:00; Status DC Cefazolin Sodium/ Dextrose 50 ml @ 100 mls/hr Q8HRS IV Last administered on at 06:28; Start 11/06/18 at 14:00 Diphenhydramine HCl (Benadryl) 50 mg 1X ONCE IVP Last administered on at 11:15; Start 11/06/18 at 11:15; Stop 11/06/18 at 11:19; Status DC Diphenhydramine HCl (Benadryl) 50 mg STK-MED ONCE .ROUTE ; Start 11/06/18 at 11: 07; Stop 11/06/18 at 11:08; Status DC Fentanyl Citrate (Fentanyl 2ml Vial) 100 mcg 1X ONCE IV Last administered on at 11:15; Start 11/06/18 at 11:15; Stop 11/06/18 at 11:16; Status DC Fentanyl Citrate (Fentanyl 2ml Vial) 100 mcg STK-MED ONCE .ROUTE ; Start at 10:50; Stop 11/06/18 at 10:51; Status DC Heparin Sodium (Porcine) (Hep Lock Adult) 500 unit 1X ONCE IV Last administered on 11/06/18at 11:15; Start 11/06/18 at 11:15; Stop 11/06/18 at 11:19 ; Status DC Insulin Glargine (Lantus) 30 units QHS SQ Last administered on 11/06/18at 22:52 ; Start 11/06/18 at 21:00 Lidocaine/ Epinephrine (LIDOCAINE 1%-EPI 1:100,000 Multi-Dose) 20 ml 1X ONCE IJ Last administered on 11/06/18at 11:15; Start 11/06/18 at 11:15; Stop at 11:16; Status DC Vitals/I & O Vital Sign - Last 24 Hours 11/06/18 11/06/18 11/06/18 11/06/18 11:00 11:15 14:24 14:36 Temp 98.2 98.2 98.2 98.2 Pulse 81 81 83 Resp 20 18 20 B/P (MAP) 163/54 (90) 163/54 154/64 (94) Pulse Ox 99 99 O2 Delivery Room Air Room Air 11/06/18 11/06/18 11/06/18 11/06/18 17:35 19:00 22:16 22:37 Temp 98.8 98.4 98.8 98.4 Pulse 83 76 76 75 Resp 16 18 B/P (MAP) 154/64 151/51 (84) 151/51 148/57 (87) Pulse Ox 100 100 O2 Delivery Room Air Room Air 11/07/18 11/07/18 11/07/18 11/07/18 03:00 07:00 09:42 09:43 Temp 98.1 97.9 98.1 97.9 Pulse 79 75 75 75 Resp 16 18 B/P (MAP) 141/52 (81) 145/68 (93) 145/68 145/68 Pulse Ox 100 100 O2 Delivery Room Air Room Air 11/07/18 09:45 Pulse 75 B/P (MAP) 145/68 Intake and Output 11/06/18 11/06/1811/07/19 14:59 22:59 06:59 Intake Total 480 ml 120 ml Balance 480 ml 120 ml AUGUSTO BRUNER MD Nov 07, 2018 10:33
--- NOTE | 2018-11-07 10:42 | SNU/HH DC ---
DISCHARGE ORDERS DISCHARGE INFORMATION: DISCHARGE DATE: Nov 07, 2018 FINAL DIAGNOSIS Problems Medical Problems: (1) Anxiety Status: Acute (2) Dementia Status: Acute (3) Diabetic foot ulcers Status: Acute (4) Hyperglycemia Status: Acute (5) Uncontrolled diabetes mellitus Status: Acute CONDITION ON DISCHARGE: Stable CODE STATUS: Code Status: Full PENITENTIARY: SNF STAY <30 DAYS: Yes POST DISCHARGE ORDERS: ACTIVITY ORDERS: Resume previous activity, Activity as tolerated WEIGHT BEARING STATUS: Full weight bearing DIET AFTER DISCHARGE: ADA WOUND/INCISION CARE: Change dressing OTHER ORDERS: ANcef 2 g q 8 h x5 weeks ivpb CHECKS AFTER DISCHARGE: CHECKS AFTER DISCHARGE: Check blood sugar, ac/hs FOLLOW-UP: PHYSICIAN FOLLOW-UP: vascular f/u ADDITIONAL FOLLOW-UP: id f/u LAB ORDERS FOR FOLLOW-UP: cbc.cmp weekly for 6 weeks TREATMENT/EQUIPMENT ORDERS: ADAPTIVE EQUIPMENT NEEDED: None DISCHARGE MEDICATIONS: Home Meds Active Scripts Fluconazole (DIFLUCAN) 100 Mg Tablet, 200 MG PO DAILY, #30 Prov:AUGUSTO BRUNER MD 04/30/16 Reported Medications Hydralazine Hcl (HYDRALAZINE HCL) 50 Mg Tablet, 1 TAB PO TID, #90 TAB 5 Refills 01/09/18 Guaifenesin (GUAIFENESIN) 100 Mg/5 Ml Liquid, 100 MG PO, LIQUID 01/09/18 Bisacodyl (DULCOLAX) 5 Mg Tablet.dr, 4 TAB PO DAILY, #4 TAB 01/09/18 Mycophenolate Sodium (MYFORTIC) 180 Mg Tablet.dr, 180 MG PO BID, TAB.SR 01/08/18 Ferrous Sulfate (FERROUS SULFATE) 325 Mg Tablet, 1 TAB PO DAILY, #30 TAB 3 Refills 12/19/17 Hydrocodone/Acetaminophen (Lortab 7.5-325 mg Tablet) 1 Each Tablet, 1 TAB PO PRN Q4HRS PRN for PAIN, TAB 0 Refills 09/13/16 Furosemide (LASIX) 40 Mg Tablet, 1 TAB PO DAILY, #90 TAB 1 Refill 09/13/16 Tacrolimus (PROGRAF) 1 Mg Capsule, 0.5 MG PO HS for antirejection medication 03/22/16 Insulin Detemir (LEVEMIR) 100 Unit/1 Ml Vial, 40 UNIT SQ QHS for dm, VIAL 02/25/16 Lisinopril (LISINOPRIL) 10 Mg Tablet, 1 TAB PO DAILY for htn, #30 TAB 5 Refills 02/25/16 Alprazolam (XANAX) 0.25 Mg Tablet, 0.25 MG PO PRN BID PRN for ANXIETY / AGITATION, TAB 0 Refills 02/25/16 Folic Acid/Vitamin B Comp W-C (NEPHRO-SUSANA TABLET) 0.8 Mg Tablet, 1 TAB PO DAILY for supplement, #30 TAB 5 Refills 02/25/16 Mycophenolate Sodium (MYFORTIC) 180 Mg Tablet.dr, 180 MG PO BID for anti rejection 02/25/16 Carvedilol (COREG ) 6.25 Mg Tablet, 12.5 MG PO BIDWMEALS for blood pressure, TAB 03/08/15 Atorvastatin Calcium (ATORVASTATIN CALCIUM) 40 Mg Tablet, 2 TAB PO QHS for high cholesterol, #90 TAB 3 Refills 03/08/15 Prednisone (PREDNISONE) 5 Mg Tablet, 5 MG PO DAILY for steroid 01/17/14 Metoclopramide Hcl (METOCLOPRAMIDE HCL) 5 Mg Tablet, 5 MG PO TIDAC for nausea 01/17/14 Levetiracetam (LEVETIRACETAM) 500 Mg Tablet, 500 MG PO BID for seizures 01/17/14 Insulin Aspart (NOVOLOG) 100 Unit/1 Ml Cartridge, 6 UNIT SQ TIDWMEALS for diabetes 01/17/14 Aspirin (ASPIRIN) 325 Mg Tablet, 325 MG PO DAILY for blood thinner 01/17/14 Pantoprazole Sodium (PROTONIX) 40 Mg Tablet.dr, 40 MG PO DAILY for acid reflux 08/20/13 Discontinued Reported Medications Fluconazole (DIFLUCAN) 200 Mg Tablet, 1 TAB PO DAILY, #7 TAB 01/08/18 [meds reviewed] No Conflict Check 10/25/15 AUGUSTO BRUNER MD Nov 07, 2018 10:42
--- NOTE | 2018-11-07 10:55 | PDOC ---
Renal-Progress Notes Subjective Notes Notes NONE History of Present Illness Hx of present illness STABLE Vitals Vitals Vital Signs Date Time Temp Pulse Resp B/P (MAP) Pulse Ox O2 Delivery O2 Flow Rate FiO2 11/07/18 09:45 75 145/68 11/07/18 07:00 97.9 18 100 Room Air 97.9 11/06/18 08:00 2.0 Weight Weight [ ] I.O. Intake and Output Intake and Output 11/07/18 07:00 Intake Total 600 ml Balance 600 ml Intake Oral 600 ml # Voids 9 # Bowel Movements 4 Labs Labs Laboratory Tests Test 11/06/18 11:37 11/06/18 13:08 11/06/18 16:00 11/06/18 20:15 Glucose (Fingerstick) 63 mg/dL (70-99) 159 mg/dL (70-99) 126 mg/dL (70-99) White Blood Count 10.4 x10^3/uL (4.0-11.0) Red Blood Count 3.58 x10^6/uL (3.50-5.40) Hemoglobin 9.1 g/dL (12.0-15.5) Hematocrit 29.0 % (36.0-47.0) Mean Corpuscular Volume 81 fL (79-100) Mean Corpuscular Hemoglobin 26 pg (25-35) Mean Corpuscular Hemoglobin Concent 31 g/dL (31-37) Red Cell Distribution Width 15.9 % (11.5-14.5) Platelet Count 260 x10^3/uL (140-400) Neutrophils (%) (Auto) 80 % (31-73) Lymphocytes (%) (Auto) 9 % (24-48) Monocytes (%) (Auto) 8 % (0-9) Eosinophils (%) (Auto) 3 % (0-3) Basophils (%) (Auto) 1 % (0-3) Neutrophils # (Auto) 8.3 x10^3uL (1.8-7.7) Lymphocytes # (Auto) 0.9 x10^3/uL (1.0-4.8) Monocytes # (Auto) 0.8 x10^3/uL (0.0-1.1) Eosinophils # (Auto) 0.3 x10^3/uL (0.0-0.7) Basophils # (Auto) 0.1 x10^3/uL (0.0-0.2) Test 11/07/18 05:56 11/07/18 06:22 11/07/18 06:34 11/07/18 07:37 Glucose (Fingerstick) 56 mg/dL (70-99) 58 mg/dL (70-99) 160 mg/dL (70-99) 97 mg/dL (70-99) Micro Micro Microbiology 11/03/18 Blood Culture - Preliminary, Resulted NO GROWTH AFTER 4 DAYS 10/31/18 Anaerobic/Aerobic Culture - Final, Complete 10/31/18 Anaerobic Culture Result 1 (LYN) - Final, Complete 10/31/18 Aerobic Culture - Final, Complete 10/31/18 Aerobic Culture Result 1 (LYN) - Final, Complete 10/31/18 Antimicrobic Susceptibility - Final, Complete 10/31/18 Gram Stain - Final, Complete 10/31/18 Gram Stain Result 1 (LYN) - Final, Complete 10/31/18 Gram Stain Result 2 (LYN) - Final, Complete Review of Systems Constitutional: yes: weakness, alert, oriented Ears/Nose/Throat: Yes: no symptom reported Pulmonary: Yes no symptom reported Cardiovascular: Yes no symptom reported Gastrointestional: Yes: no symptom reported Genitourinary: Yes: no symptom reported Musculoskeletal: Yes: muscle stiffness, muscle atrophy Skin: Yes no symptom reported Psychiatric/Neurological: Yes: no symptom reported Endocrine: Yes: no symptom reported Physical Exam General Appearance: no apparent distress, cachetic, thin, alert, oriented Skin: warm Respiratory: bilateral CTA Heart: S1S2 Abdomen: soft, bowel sounds present Genitourinary: bladder flat Extremities: pulses present Neurology: alert, oriented, Ext weakness Musculoskeletal: Osteoarthritis Assessment Assessment IMP RENAL TX-STABLE CR OF 1.4 LOW K-CORRECTED HYPERNATREMIA-RESOLVED PAD DM II HTN PLAN CONT IMMUNOSUPPRESSANTS D/W ATTENDING D/C PLANS TODAY MO RODRIGUEZ MD Nov 07, 2018 10:55
[2018-11-07 11:00] VITALS: BP 182/70
--- NOTE | 2018-11-07 11:04 | PDOC ---
Infectious Disease Note Subjective Subjective Comfortable, denies pain Feels a little cold but hungry Denies F/C/N/V/D/pain/SOA Vital Sign Vital Signs Vital Signs Date Time Temp Pulse Resp B/P (MAP) Pulse Ox O2 Delivery O2 Flow Rate FiO2 11/07/18 09:45 75 145/68 11/07/18 07:00 97.9 18 100 Room Air 97.9 11/06/18 08:00 2.0 Physical Exam PHYSICAL EXAM GENERAL: Sitting on side of bed, alert, NAD HEENT: Oral mucosa moist. Edentulous NECK: Supple. LUNGS: Clear bilaterally. No wheezing. HEART: S1, S2 with no gallops or murmurs. ABDOMEN: Soft, nontender EXTREMITIES: RUE less swollen, + blisters, forearm bandaged. Left toe wounds are clean with some forefoot discoloration. 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 Grossly nonfocal. SKIN: without rash LUE fistula clean PIV ok Labs Lab Laboratory Tests Test 11/06/18 11:37 11/06/18 13:08 11/06/18 16:00 11/06/18 20:15 Glucose (Fingerstick) 63 mg/dL (70-99) 159 mg/dL (70-99) 126 mg/dL (70-99) White Blood Count 10.4 x10^3/uL (4.0-11.0) Red Blood Count 3.58 x10^6/uL (3.50-5.40) Hemoglobin 9.1 g/dL (12.0-15.5) Hematocrit 29.0 % (36.0-47.0) Mean Corpuscular Volume 81 fL (79-100) Mean Corpuscular Hemoglobin 26 pg (25-35) Mean Corpuscular Hemoglobin Concent 31 g/dL (31-37) Red Cell Distribution Width 15.9 % (11.5-14.5) Platelet Count 260 x10^3/uL (140-400) Neutrophils (%) (Auto) 80 % (31-73) Lymphocytes (%) (Auto) 9 % (24-48) Monocytes (%) (Auto) 8 % (0-9) Eosinophils (%) (Auto) 3 % (0-3) Basophils (%) (Auto) 1 % (0-3) Neutrophils # (Auto) 8.3 x10^3uL (1.8-7.7) Lymphocytes # (Auto) 0.9 x10^3/uL (1.0-4.8) Monocytes # (Auto) 0.8 x10^3/uL (0.0-1.1) Eosinophils # (Auto) 0.3 x10^3/uL (0.0-0.7) Basophils # (Auto) 0.1 x10^3/uL (0.0-0.2) Test 11/07/18 05:56 11/07/18 06:22 11/07/18 06:34 11/07/18 07:37 Glucose (Fingerstick) 56 mg/dL (70-99) 58 mg/dL (70-99) 160 mg/dL (70-99) 97 mg/dL (70-99) Micro Microbiology 11/03/18 Blood Culture - Preliminary, Resulted NO GROWTH AFTER 4 DAYS 10/31/18 Anaerobic/Aerobic Culture - Final, Complete 10/31/18 Anaerobic Culture Result 1 (LYN) - Final, Complete 10/31/18 Aerobic Culture - Final, Complete 10/31/18 Aerobic Culture Result 1 (LYN) - Final, Complete 10/31/18 Antimicrobic Susceptibility - Final, Complete 10/31/18 Gram Stain - Final, Complete 10/31/18 Gram Stain Result 1 (LYN) - Final, Complete 10/31/18 Gram Stain Result 2 (LYN) - Final, Complete Objective Assessment Bacteremia, MSSA 10/30. repeat BC 11/03 NGTD Left toes with gangrene, s/p angio, 11/01. s/p 1st and 2nd toe amputation, primary closure on 11/02. CoNS-oxacillin sensitive Right heel callus s/p excision on 11/02. Peripheral arterial disease.s/p angiogram, RLE PTCA 11/05 Chronic kidney disease, status post renal transplant. 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 Pt was on chronic suppressive fluconazole, though not seen on list from the [place] Acute kidney injury with chronic kidney disease. Hypertension. Coronary artery disease. Diabetes. RUE swelling, RUE US neg DVT - improving Plan Plan of Care F/u ECHO Cefazolin Cont fluconazole cryptococcal ag pending repeat BC 11/03 NGTD elevate RUE Wound care treatment. Supportive care. SHEN LANDON MD 13, 2019 11:04
[2018-11-07] MEDS ORDERED: cefazolin IV (12:29)
--- NOTE | 2018-11-07 13:24 | NUR ---
SW following. Pt can return to [facility], Ancef will be changed from Q8 to Q12. RN [facility].
[2018-11-07 14:11] VITALS: BP 144/69
[2018-11-07 14:15] VITALS: BP 144/69
--- NOTE | 2018-11-07 16:12 | PDOC ---
Provider Note Provider Note Discharge summary dictated. #[id number] AUGUSTO BRUNER MD Nov 07, 2018 16:12
--- NOTE | 2018-11-07 20:08 | PATHOLOGY ---
[facility] Accession Number: [id number] . 01 Material submitted: . 1ST, AND 2ND TOES FROM LEFT FOOT . 01 Clinical history: . PAD . 02 Diagnosis: First and second toes and separate segments of bone, left first and second toe amputation: - Gangrenous necrosis and ulceration of distal tips of toes with acute cellulitis and acute osteomyelitis. - Separate segments of bone negative for acute osteomyelitis. (JPM:[facility] 11/07/2018) QTP/11/07/2018 . 02 Electronically signed: . Braydon Charles MD, Pathologist NPI- [id number] . 01 Gross description: . The specimen is received in formalin, labeled "Milly Pena, first and second toe from left foot", are two distal digits consisting of a big toe disarticulated through the PIP joint and measuring 2.2 cm in length and up to 2.5 cm in width. The second toe measures 2.2 cm in length with an average 1.5 cm diameter. Both the digits show a black-brown, necrotic, mummified distal tip that extends to the underlying bone and possibly involves the resection margin. Also received are 2 irregular fragments of avalos bone partially covered by glistening, smooth, alfred-white cartilage measuring 1.5 x 0.7 x 0.7 cm in aggregate. Peripheral Equipment Operator tissue is submitted as follows: A1. Big toe, longitudinal section after decalcification ( proximal margin inked blue) A2. Second toe, longitudinal section after decalcification (Proximal margin inked blue) A3. Additional bone fragments, bisected and differential inked, after decalcification. (SWS; 11/06/2018) . SHS/SHS . 02 Pathologist provided ICD-10: L97.529, L03.032, M86.172 . 02 CPT . 965481, [id number] Specimen Comment: A courtesy copy of this report has been sent to Specimen Comment: [phone], . Specimen Comment: Report sent to / DR BRUNER Specimen Comment: A duplicate report has been generated due to demographic updates. Performed at: 01 [facility] [address], [place] [id number] MD Aric Em MD Phone: [phone] Performed at: 02 [facility] [address] [place], [place] [id number] MD Braydon Charles MD Phone: [phone]
--- NOTE | 2018-11-07 22:15 | DS ---
DATE OF DISCHARGE: 11/07/2018 REASON FOR ADMISSION TO THE HOSPITAL: Gangrene of the left toes on the left foot, peripheral vascular disease. CONSULTATIONS: 1. Dr. Stephenson. 2. Dr. Mao. 3. Infectious Disease, Dr. Galicia. PROCEDURES DONE: 1. Arteriogram. 2. Angioplasty of the right femoral artery. 3. Amputation of the toes, left foot. 4. Debridement of the right heel ulcer. 5. Echocardiogram. 6. Insertion of power PICC line or PowerPort. HOSPITAL COURSE: The patient is a 63-year-old female. She is diabetic, bypass surgery, old stroke, kidney transplant patient. She has peripheral vascular disease, developed gangrene of the toes, came to the Emergency Room. She had some infected toes that came back positive for Staph coagulase. She also had blood cultures positive for Staphylococcus coagulase bacteremia. The patient was seen by Vascular, had an arteriogram on 11/01/2018. There was some posterior tibial artery occlusion below the medial malleolus of some collaterals, right superficial femoral artery has occlusion and the patient initially underwent primary digit amputation of #1, #2 left foot with primary closure and excision of right heel callus. The patient was taken to surgery a couple of days later, the patient had a right superficial femoral artery atherectomy and angioplasty and a right posterior tibial angioplasty. The patient had staph bacteremia, seen by Infectious Disease, was treated with Zosyn, later on changed to Ancef once the culture was available. The patient's echocardiogram, no evidence of any vegetations. The patient had a history of kidney transplant. She was followed by kidney doctor while she was in the hospital, creatinine was anywhere from 1.5-2. She was 1.4 at the time of discharge and the patient had a power PICC line and PowerPort. She needed antibiotic Ancef for at least 5 weeks because of staph bacteremia and immunocompromised state. FINAL DIAGNOSES: 1. Gangrene of the left first and second toes, had amputation of the toes. 2. Peripheral vascular disease on the right heel, atherectomy right superficial femoral artery and right posterior tibial angioplasty. 3. Right heel debridement of the callus. 4. Insertion of PICC line. 5. Staph aureus bacteremia. Staph aureus foot infection. 6. Immune compromise. 7. History of kidney transplant. 8. Insulin-dependent diabetes. 9. Old cerebrovascular accident. 10. History of bypass surgery. 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 The patient is discharged back to the residential. Plan is to have 5 more weeks of IV antibiotics, Ancef 2 grams q. 8 hours. Follow with the Vascular. AUGUSTO BRUNER MD DR: DENISE/jeanie JOB#: [id number] / [id number] FERNANDO
== END 2018-11-07 14:30 | DRG 270 ==
LOC: ER 11:06 → ED HOLD 12:40 → 5 SOUTH 15:14
PROVIDERS: ADMIT Internal Medicine; ATTEND Internal Medicine
PROC: B4101ZZ Fluoroscopy of Abdominal Aorta using Low Osmolar Contrast (ICD-10-PCS; principal; 2018-11-01)
PROC: B41G1ZZ Fluoroscopy of Left Lower Extremity Arteries using Low Osmolar Contrast (ICD-10-PCS; 2018-11-01)
PROC: B41F1ZZ Fluoroscopy of Right Lower Extremity Arteries using Low Osmolar Contrast (ICD-10-PCS; 2018-11-01)
PROC: 0HBMXZZ Excision of Right Foot Skin, External Approach (ICD-10-PCS; 2018-11-02)
PROC: 0Y6Q0Z2 Detachment at Left 1st Toe, Mid, Open Approach (ICD-10-PCS; 2018-11-02)
PROC: 0Y6S0Z2 Detachment at Left 2nd Toe, Mid, Open Approach (ICD-10-PCS; 2018-11-02)
PROC: 0HBNXZZ Excision of Left Foot Skin, External Approach (ICD-10-PCS; 2018-11-02)
PROC: 04CK3ZZ Extirpation of Matter from Right Femoral Artery, Percutaneous Approach (ICD-10-PCS; 2018-11-05)
PROC: 047K3Z1 Dilation of Right Femoral Artery using Drug-Coated Balloon, Percutaneous Approach (ICD-10-PCS; 2018-11-05)
PROC: 047R3ZZ Dilation of Right Posterior Tibial Artery, Percutaneous Approach (ICD-10-PCS; 2018-11-05)
PROC: 0JH63XZ Insertion of Tunneled Vascular Access Device into Chest Subcutaneous Tissue and Fascia, Percutaneous Approach (ICD-10-PCS; 2018-11-06)
PROC: 02H633Z Insertion of Infusion Device into Right Atrium, Percutaneous Approach (ICD-10-PCS; 2018-11-06)
PROC: B2141ZZ Fluoroscopy of Right Heart using Low Osmolar Contrast (ICD-10-PCS; 2018-11-06)
PROC: B244ZZZ Ultrasonography of Right Heart (ICD-10-PCS; 2018-11-06)
DX: E11.52 Type 2 diabetes mellitus with diabetic peripheral angiopathy with gangrene (principal); N17.0 Acute kidney failure with tubular necrosis; I96 Gangrene, not elsewhere classified; I50.22 Chronic systolic (congestive) heart failure; E87.0 Hyperosmolality and hypernatremia; Z94.0 Kidney transplant status; R78.81 Bacteremia; I13.0 Hypertensive heart and chronic kidney disease with heart failure and stage 1 through stage 4 chronic kidney disease, or unspecified chronic kidney disease; I25.10 Atherosclerotic heart disease of native coronary artery without angina pectoris; E11.22 Type 2 diabetes mellitus with diabetic chronic kidney disease; I16.0 Hypertensive urgency; L97.519 Non-pressure chronic ulcer of other part of right foot with unspecified severity; E11.65 Type 2 diabetes mellitus with hyperglycemia; E11.621 Type 2 diabetes mellitus with foot ulcer; E78.00 Pure hypercholesterolemia, unspecified; G40.909 Epilepsy, unspecified, not intractable, without status epilepticus; G89.29 Other chronic pain; F03.90 Unspecified dementia, unspecified severity, without behavioral disturbance, psychotic disturbance, mood disturbance, and anxiety; F41.9 Anxiety disorder, unspecified; E11.649 Type 2 diabetes mellitus with hypoglycemia without coma; L89.619 Pressure ulcer of right heel, unspecified stage; L84 Corns and callosities; I70.201 Unspecified atherosclerosis of native arteries of extremities, right leg; B95.61 Methicillin susceptible Staphylococcus aureus infection as the cause of diseases classified elsewhere; E78.5 Hyperlipidemia, unspecified; J44.9 Chronic obstructive pulmonary disease, unspecified; K21.9 Gastro-esophageal reflux disease without esophagitis; R91.1 Solitary pulmonary nodule; L97.529 Non-pressure chronic ulcer of other part of left foot with unspecified severity; D64.9 Anemia, unspecified; N18.9 Chronic kidney disease, unspecified; E87.6 Hypokalemia; M19.90 Unspecified osteoarthritis, unspecified site; Z90.710 Acquired absence of both cervix and uterus; Z79.4 Long term (current) use of insulin; Z86.73 Personal history of transient ischemic attack (TIA), and cerebral infarction without residual deficits; Z95.1 Presence of aortocoronary bypass graft; Z79.02 Long term (current) use of antithrombotics/antiplatelets; Z79.82 Long term (current) use of aspirin; Z83.3 Family history of diabetes mellitus
CPT/HCPCS: 36247; 36415; 36558; 37225; 37228; 71045; 71250; 73630; 75625; 75710; 75716; 76937; 77001; 80048; 80053; 80061; 81001; 82962; 83036; 83605; 83735; 84443; 85007; 85025; 85610; 87040; 87071; 87075; 87077; 87186; 87205; 87493; 87641; 88305; 88311; 93005; 93306; 93925; 93971; 96365; 96375; 99152; 99153; A7015; C1714; C1751; C1760; C1769; C1885; C1887; C1892; C1894; C2623; G0269; J0360; J0690; J0696; J0878; J1100; J1200; J1644; J1815; J2001; J2060; J2250; J2405; J2543; J2704; J3010; J3370; J3490; J7030; J7042; J7507; J7512; J8597; Q9967; 97110; 97530; 97535; 99285-25; A4461; C1771

== ENCOUNTER 2019-03-30 17:44 | Inpatient (IN) | payer MEDICARE, MEDICAID ==
[~2019-03-30] VITALS: Ht 162.6 cm; Wt 74.6 kg
[~2019-03-30 17:44] MED LIST changes: -PANT40TA3 PO; +PANT40TA77 PO; +cefazolin IV
[2019-03-30] MEDS ORDERED: PIPERACILLIN/TAZOBACTAM 4.5 GM in IV NORMAL SALINE 100ML 100 ML IV ONE (18:30)
[2019-03-30] MEDS ORDERED: IV NORMAL SALINE 1000ML BAG 1,000 ML IV ONE ×2 (18:30→20:15)
--- NOTE | 2019-03-30 18:43 | RAD ---
Exam: Chest one view INDICATION: Weakness TECHNIQUE: Frontal view of the chest Comparisons: October 28, 2018 FINDINGS: Sternotomy wires and surgical clips overlying the left heart border again noted. The cardiomediastinal silhouette and pulmonary vessels are within normal limits. The lung and pleural spaces are clear. IMPRESSION: No acute cardiopulmonary process. Electronically signed by: Shannon Dean MD (03/30/2019 6:40 PM) [facility]
[2019-03-30 18:46] LABS: BASO # 0.1 x10^3/uL (0.0-0.2); BASO % 0 % (0-3); EOS % 0 % (0-3); HEMATOCRIT 34.1 % (36.0-47.0); HEMOGLOBIN 10.7 g/dL (12.0-15.5); LYMPH % 6 % (24-48); MEAN CORPUSCULAR HEMOGLOBIN 26 pg (25-35); MEAN CORPUSCULAR HGB CONC 31 g/dL (31-37); MEAN CORPUSCULAR VOLUME 83 fL (79-100); MONO # 1.3 x10^3/uL (0.0-1.1); MONO % 7 % (0-9); NEUT # 14.7 x10^3/uL (1.8-7.7); NEUT % 87 % (31-73); PLATELET COUNT 221 x10^3/uL (140-400); RED BLOOD COUNT 4.13 x10^6/uL (3.50-5.40); RED CELL DISTRIBUTION WIDTH 15.9 % (11.5-14.5)
[2019-03-30 18:47] LABS: BILIRUBIN,URINE NEGATIVE (NEG); CLARITY,URINE CLEAR; COLOR,URINE YELLOW; NITRITE,URINE NEGATIVE (NEG); PROTEIN,URINE 100 mg/dL (NEG-TRACE); UROBILINOGEN,URINE 0.2 mg/dL (0.2 mg/dL)
[2019-03-30 19:02] LABS: PROTHROMBIN TIME PATIENT 12.6 SEC (11.7-14.0)
[2019-03-30 19:09] LABS: RBC,URINE 0 /HPF (0-2)
[2019-03-30 19:10] LABS: BACTERIA,URINE MANY /HPF (0-FEW); WBC,URINE >40 /HPF (0-4)
--- NOTE | 2019-03-30 19:30 | RAD ---
Exam: CT head and cervical spine INDICATION: Weakness status post fall TECHNIQUE: Sequential axial images through the head and cervical spine were obtained without the administration of IV contrast. Comparisons: October 22, 2018 FINDINGS: Head: Hypodensity within the right PRINTED CIRCUIT BOARD PREASSEMBLER vascular distribution similar to prior consistent with old PRINTED CIRCUIT BOARD PREASSEMBLER infarct. No focal parenchymal lesion or hemorrhage is identified. There is no midline shift or sulcal effacement. No acute vascular territory infarction is identified. Sandy-white distinction is preserved. The ventricular system is within normal limits without compression hydrocephalus. The basal cisterns are well maintained. Mucous retention cyst noted within the right maxillary sinus. The visualized portions of the paranasal sinuses and mastoid air cells are well-pneumatized. No acute fractures. Cervical spine: Straightening of the cervical spine which may be positional. Grade 1 anterolisthesis of C4 on C5. No fracture through the cervical spine. C3-C4: Mild disc osteophyte complex without significant neural foraminal or spinal canal stenosis. C4-C5: Mild discussed by complex without significant neural foraminal or spinal canal stenosis. Several hypoattenuating large nodules within the thyroid gland. IMPRESSION: 1. No acute intracranial abnormality. Chronic changes as described above. 2. Negative CT C-spine for acute traumatic injury. 3. Several hypoattenuating nodules within the thyroid gland. Correlation with thyroid ultrasound on nonemergent basis is recommended. Exposure: One or more of the following in the visualized dose reduction techniques were utilized for this examination: 1. Automated exposure control 2. Adjustment of the MA and/or KV according to patient size Use of iterative of reconstructive technique Electronically signed by: Shannon Dean MD (03/30/2019 7:27 PM) [facility]
[2019-03-30 19:57] LABS: CALCIUM 9.9 mg/dL (8.5-10.1); CREATININE 1.7 mg/dL (0.6-1.0); GFR 36.5; POTASSIUM 4.7 mmol/L (3.5-5.1)
[2019-03-30 20:02] LABS: ALBUMIN 3.4 g/dL (3.4-5.0); ALBUMIN/GLOBULIN RATIO 1.1 (1.0-1.7); MAGNESIUM 1.7 mg/dL (1.8-2.4); TOTAL BILIRUBIN 0.4 mg/dL (0.2-1.0); TOTAL PROTEIN 6.5 g/dL (6.4-8.2)
[2019-03-30] MEDS ORDERED: ONDANSETRON PF 4 MG/2 ML VIAL. IV PRN (20:15)
[2019-03-30] MEDS ORDERED: IV DEXTROSE 5% 250 ML BAG. IV PRN (20:15)
[2019-03-30] MEDS ORDERED: ACETAMINOPHEN 325 MG TABLET. PO PRN (20:15)
[2019-03-30] MEDS ORDERED: DEXTROSE 50% 25 GM / 50ML DISP.SYRIN. IV PRN (20:15)
[2019-03-30 20:17] LABS: % BANDS 3 % (0-9); % LYMPHS 6 % (24-48); % MONOS 9 % (0-10); % SEGS 82 % (35-66)
[2019-03-30 20:18] LABS: PLT ESTIMATE ADEQUATE (ADEQUATE)
--- NOTE | 2019-03-30 21:43 | PHYS DOC ---
Past Medical History Past Medical History: Anemia, CAD, CHF, Diabetes-Type II, High Cholesterol, Hypertension, MRSA, Renal Failure, Seizure, Other Additional Past Medical Histor: encephalopathy, chronic pain, epilepsy Past Surgical History: Coronary Bypass Surgery, Hysterectomy, Other Additional Past Surgical Histo: kidney transplant,foot surgery,AV fistula placement and removal Additional Information: Nonsmoker Alcohol Use: None Drug Use: None Adult General Chief Complaint Chief Complaint: WEAKNESS/GENERALIZED HPI HPI 63-year-old female presents via EMS from [facility] with report of fall today at 1430. intermediate staff reports patient had some altered mental status and was noted to have a temperature of 100.6. Blood was also obtained at the longterm with notation of elevated white blood cell count.. Paperwork from [facility]term also noted patient with significant UTI. Patient denies current complaint. Denies headache or neck pain. Denies chest pain. Patient reports she "just feels weak" and "not well". Patient is answering questions appropriately. Review of Systems Review of Systems Constitutional: Reports fever, chills, and generalized malaise Eyes: Denies redness or eye pain HENT: Denies nasal congestion or sore throat Respiratory: Denies cough or shortness of breath Cardiovascular: Denies chest pain or palpitations GI: Denies abdominal pain, nausea, or vomiting : Denies dysuria or hematuria Musculoskeletal: Denies back pain or joint pain Integument: Denies rash or skin lesions Neurologic: Denies headache, focal weakness or sensory changes; reports generali zed weakness Complete systems were reviewed and found to be within normal limits, except as documented in this note. Current Medications Current Medications Current Medications Medications (Trade) Dose Ordered Sig/Te Start Time Stop Time Status Last Admin Dose Admin Piperacillin Sod/ Tazobactam Sod 4.5 gm/Sodium Chloride 100 ml @ 200 mls/hr 1X ONCE 03/30/19 18:30 03/30/19 18:59 DC 03/30/19 19:50 200 MLS/HR Sodium Chloride 1,000 ml @ 1,000 mls/hr 1X ONCE 03/30/19 18:30 03/30/19 19:29 DC 03/30/19 18:30 1,000 MLS/HR Allergies Allergies Allergies Coded Allergies Type Severity Reaction Last Updated Verified adhesive tape Allergy Intermediate Hives 11/02/18 Yes I S O L A T I O N *CONTACT* Allergy Unknown 01/09/18 Yes No Known Medication Allergies Allergy Unknown 01/09/18 Yes Physical Exam Physical Exam Constitutional: Well developed, well nourished, no acute distress, non-toxic appearance HENT: Normocephalic, atraumatic, oropharynx moist Eyes: PERRL, EOMI, conjunctiva normal, no discharge Neck: Normal range of motion, no tenderness, supple, no meningeal signs Cardiovascular: Heart rate normal, regular rhythm Lungs & Thorax: Bilateral breath sounds clear to auscultation, no wheezing Abdomen: Soft, no tenderness Skin: Warm, dry, no erythema, no rash Back: No tenderness, no CVA tenderness Extremities: No tenderness, ROM intact, no edema Neurologic: Alert and oriented X 3, no focal deficits noted Psychologic: Affect normal, judgement normal Current Patient Data Vital Signs Vital Signs Date Time Temp Pulse Resp B/P (MAP) Pulse Ox O2 Delivery O2 Flow Rate FiO2 03/30/19 19:52 97 14 96 03/30/19 17:50 98.3 171/75 (107) Room Air 98.3 Lab Values Laboratory Tests Test 03/30/19 18:10 03/30/19 18:28 03/30/19 19:40 White Blood Count 17.0 x10^3/uL (4.0-11.0) H Red Blood Count 4.13 x10^6/uL (3.50-5.40) Hemoglobin 10.7 g/dL (12.0-15.5) L Hematocrit 34.1 % (36.0-47.0) L Mean Corpuscular Volume 83 fL (79-100) Mean Corpuscular Hemoglobin 26 pg (25-35) Mean Corpuscular Hemoglobin Concent 31 g/dL (31-37) Red Cell Distribution Width 15.9 % (11.5-14.5) H Platelet Count 221 x10^3/uL (140-400) Neutrophils (%) (Auto) 87 % (31-73) H Lymphocytes (%) (Auto) 6 % (24-48) L Monocytes (%) (Auto) 7 % (0-9) Eosinophils (%) (Auto) 0 % (0-3) Basophils (%) (Auto) 0 % (0-3) Neutrophils # (Auto) 14.7 x10^3/uL (1.8-7.7) H Lymphocytes # (Auto) 1.0 x10^3/uL (1.0-4.8) Monocytes # (Auto) 1.3 x10^3/uL (0.0-1.1) H Eosinophils # (Auto) 0.0 x10^3/uL (0.0-0.7) Basophils # (Auto) 0.1 x10^3/uL (0.0-0.2) Segmented Neutrophils % 82 % (35-66) H Band Neutrophils % 3 % (0-9) Lymphocytes % 6 % (24-48) L Monocytes % 9 % (0-10) Platelet Estimate Adequate (ADEQUATE) Prothrombin Time 12.6 SEC (11.7-14.0) Prothrombin Time INR 1.0 (0.8-1.1) PTT 28 SEC (24-38) Lactic Acid Level 1.7 mmol/L (0.4-2.0) Urine Collection Type U cath Urine Color Yellow Urine Clarity Clear Urine pH 5.0 Urine Specific [place] 1.020 Urine Protein 100 mg/dL (NEG-TRACE) Urine Glucose (UA) Negative mg/dL (NEG) Urine Ketones (Stick) Negative mg/dL (NEG) Urine Blood Negative (NEG) Urine Nitrite Negative (NEG) Urine Bilirubin Negative (NEG) Urine Urobilinogen Dipstick 0.2 mg/dL (0.2 mg/dL) Urine Leukocyte Esterase Moderate (NEG) Urine RBC 0 /HPF (0-2) Urine WBC >40 /HPF (0-4) Urine Bacteria Many /HPF (0-FEW) Sodium Level 137 mmol/L (136-145) Potassium Level 4.7 mmol/L (3.5-5.1) Chloride Level 102 mmol/L (98-107) Carbon Dioxide Level 22 mmol/L (21-32) Anion Gap 13 (6-14) Blood Urea Nitrogen 50 mg/dL (7-20) H Creatinine 1.7 mg/dL (0.6-1.0) H Estimated GFR (Cockcroft-Gault) 36.5 BUN/Creatinine Ratio 29 (6-20) H Glucose Level 201 mg/dL (70-99) H Calcium Level 9.9 mg/dL (8.5-10.1) Magnesium Level 1.7 mg/dL (1.8-2.4) L Total Bilirubin 0.4 mg/dL (0.2-1.0) Aspartate Amino Transferase (AST) 17 U/L (15-37) Alanine Aminotransferase (ALT) 24 U/L (14-59) Alkaline Phosphatase 67 U/L (46-116) Ammonia 12 mcmol/L (11-34) Creatine Kinase 129 U/L (26-192) Creatine Kinase MB (Mass) 0.8 ng/mL (0.0-3.6) Creatine Kinase MB Relative Index 0.6 % (0-4) Troponin I Quantitative 0.030 ng/mL (0.000-0.055) Total Protein 6.5 g/dL (6.4-8.2) Albumin 3.4 g/dL (3.4-5.0) Albumin/Globulin Ratio 1.1 (1.0-1.7) Laboratory Tests 03/30/19 18:10 Laboratory Tests 03/30/19 19:40 EKG EKG @1842 NSR at 99bpm, NO ST elevation, Q wave III and aVF, nonspecific t wave inversion aVL, compared to prior EKG per [facility] from 10/31/18 without acute change. Radiology/Procedures Radiology/Procedures PROCEDURE: CT HEAD AND CERVICAL SPINE WO Exam: CT head and cervical spine INDICATION: Weakness status post fall TECHNIQUE: Sequential axial images through the head and cervical spine were obtained without the administration of IV contrast. Comparisons: October 22, 2018 FINDINGS: Head: Hypodensity within the right TRAFFIC LAW ATTORNEY vascular distribution similar to prior consistent with old TRAFFIC LAW ATTORNEY infarct. No focal parenchymal lesion or hemorrhage is identified. There is no midline shift or sulcal effacement. No acute vascular territory infarction is identified. Sandy-white distinction is preserved. The ventricular system is within normal limits without compression hydrocephalus. The basal cisterns are well maintained. Mucous retention cyst noted within the right maxillary sinus. The visualized portions of the paranasal sinuses and mastoid air cells are well-pneumatized. No acute fractures. Cervical spine: Straightening of the cervical spine which may be positional. Grade 1 anterolisthesis of C4 on C5. No fracture through the cervical spine. C3-C4: Mild disc osteophyte complex without significant neural foraminal or spinal canal stenosis. C4-C5: Mild discussed by complex without significant neural foraminal or spinal canal stenosis. Several hypoattenuating large nodules within the thyroid gland. IMPRESSION: 1. No acute intracranial abnormality. Chronic changes as described above. 2. Negative CT C-spine for acute traumatic injury. 3. Several hypoattenuating nodules within the thyroid gland. Correlation with thyroid ultrasound on nonemergent basis is recommended. Exposure: One or more of the following in the visualized dose reduction techniques were utilized for this examination: 1. Automated exposure control 2. Adjustment of the MA and/or KV according to patient size Use of iterative of reconstructive technique Electronically signed by: Shannon Dean MD (03/30/2019 7:27 PM) [facility] PROCEDURE: PORTABLE CHEST 1V Exam: Chest one view INDICATION: Weakness TECHNIQUE: Frontal view of the chest Comparisons: October 28, 2018 FINDINGS: Sternotomy wires and surgical clips overlying the left heart border again noted. The cardiomediastinal silhouette and pulmonary vessels are within normal limits. The lung and pleural spaces are clear. IMPRESSION: No acute cardiopulmonary process. Electronically signed by: Shannon Dean MD (03/30/2019 6:40 PM) [facility] Course & Med Decision Making Course & Med Decision Making Pertinent Labs and Imaging studies reviewed. (See chart for details) Elderly patient presents from [facility] with concern for infectious process after noting elevated WBC. Patient reports generalized weakness and malaise x 1 day. Reports fever- Tmax 100.6. Concern for sepsis. Labs obtained and posted to chart. SIRS criteria met with HR and elevated WBC. IVF hydration given. UA with significant signs of infection. Empiric antibiotics given. Lactic acid WNL. No end organ damage appreciated. Creat baseline per [employer] review. CXR and CT head/cervical spine stable. Patient requiring admission for further evaluation and treatment. Discussed with Dr. Bishop (hospitalist) who is in agreement with admission. Discussed findings and plan with patient, who acknowledges understanding and agreement. Dragon Disclaimer Dragon Disclaimer This electronic medical record was generated, in whole or in part, using a voice recognition dictation system. Departure Departure Impression: Primary Impression: Sepsis Additional Impressions: UTI (lower urinary tract infection) Weakness Disposition: 09 ADMITTED INPATIENT Admitting Physician: MIRTA Aguayo) Condition: GUARDED Referrals: BONNIE BAHENA MD (PCP) Date and Time of Reassessment Date: Mar 30, 2019 Time: 20:10 Fluid Challenge Is the fluid challenge complet: No IBW Target Volume Used: Yes BMI > 30: Yes Vital Signs Vital Signs: Vital Signs Date Time Temp Pulse Resp B/P (MAP) Pulse Ox O2 Delivery O2 Flow Rate FiO2 03/30/19 19:52 97 14 96 03/30/19 17:50 98.3 171/75 (107) Room Air 98.3 Temperature Source: Oral Respirations Respiratory Effort: Normal Respiratory Pattern: Normal Cardiovascular Pulse Rhythm: Regular Heart: Nml rate, reg. rhythm Lung Sounds Breath Sounds: Clear Capillary Refil Capillary Refill: Rt Hand < 3 seconds Peripheral Pulse Pulse Location: Radial Pulse Strength: Normal (2+) Pulse Assessment Method: Palpation Integumentary Skin: Warm, Dry Skin Moisture: Dry Skin Turgor: Normal Skin Color: warm, dry Fingernail Color: WNL Critical Care Time Critical care time was 30 minutes which includes time at bedside, spent in discussion of patient's care with specialists and/or family members, with interpretation of laboratory and/or radiological studies and is exclusive of procedures. Problem Qualifiers Primary Impression: Sepsis Sepsis type: sepsis due to unspecified organism Sepsis acute organ dysfunction status: without acute organ dysfunction Qualified Codes: A41.9 - Sepsis, unspecified organism DORCAS MELLO DO Mar 30, 2019 21:43
[2019-03-30 23:32] VITALS: BP 146/42
[2019-03-31 03:47] VITALS: BP 130/50
[2019-03-31 07:50] VITALS: BP 174/71
[2019-03-31] MEDS ORDERED: INSULIN LISPRO 300 UNITS/3 ML INSULN.PEN. SQ SCH (08:00)
[2019-03-31] MEDS ORDERED: TEMAZEPAM 7.5 MG CAPSULE PO PRN (09:00)
[2019-03-31] MEDS ORDERED: guaiFENesin ORAL 200 MG/10 ML LIQUID. PO PRN (09:00)
[2019-03-31] MEDS ORDERED: HYDROcodone/APAP 7.5/325MG 1 TAB TABLET PO PRN (09:00)
[2019-03-31] MEDS ORDERED: MYCOPHENOLATE SODIUM 180 MG PO SCH (09:00)
[2019-03-31] MEDS ORDERED: ONDANSETRON PF 4 MG/2 ML VIAL. IV PRN (09:00)
[2019-03-31] MEDS ORDERED: IV DEXTROSE 5% 250 ML BAG. IV PRN (09:00)
[2019-03-31] MEDS ORDERED: DEXTROSE 50% 25 GM / 50ML DISP.SYRIN. IV PRN (09:00)
[2019-03-31] MEDS ORDERED: ALPRAZolam 0.25 MG TABLET PO PRN (09:00)
[2019-03-31] MEDS: BISACODYL 5 MG TABLET.DR. PO SCH (10:10)
[2019-03-31] MEDS: FOLIC/VIT B COMP W-C (RENAL) TABLET. PO SCH (10:10)
[2019-03-31] MEDS: levETIRAcetam 500 MG TABLET PO SCH ×2 (10:10→20:31)
[2019-03-31] MEDS: FERROUS SULFATE 325 MG TABLET. PO SCH (10:10)
[2019-03-31] MEDS: PANTOPRAZOLE 40 MG TABLET.DR. PO SCH (10:10)
[2019-03-31] MEDS: ASPIRIN 325 MG TABLET PO SCH (10:10)
[2019-03-31] MEDS: FLUCONAZOLE 100 MG TABLET. PO SCH (10:11)
[2019-03-31] MEDS: CARVEDILOL 12.5 MG TABLET. PO SCH ×2 (10:11→17:20)
[2019-03-31] MEDS: cefTRIAXone IV Push 1 GM VIAL. IVP SCH (10:20)
[2019-03-31 10:48] VITALS: BP 174/68
[2019-03-31] MEDS: MYCOPHENOLATE ACID 180 MG TABLET.DR. PO SCH ×2 (11:00→20:31)
[2019-03-31] MEDS: METOCLOPRAMIDE 5 MG TABLET. PO SCH ×2 (11:02→17:20)
--- NOTE | 2019-03-31 11:09 | PDOC1 ---
History and Physical Date of Admission Date of Admission DATE: 03/31/19 TIME: 11:04 Identification/Chief Complaint Chief Complaint weak in SNU Source Source: Caregiver, Chart review, Patient History of Present Illness History of Present Illness 83-year-old -[place]azi female who is in SNU resident brought in because was generalized weakness. Found have a UTI. She is not the best historian but she is able to verify with me that she is a kidney transplant patient when I reviewed her home meds and that includes immunosuppressants . She does still continue to those meds in SNU that and verifies with me a full code. WBC 17 with UTI on UA, hemoglobin 10, no fevers, nontoxic appearing, did eat some breakfast, creatinine 1.7 possibly has a solitary kidney. I reconciled home meds except Lasix and her lisinopril because of this AK I. She also has a history of CABG. She is a full code and we'll go back to SNU on discharge. On CAT scan did not show any PE but multiple thyroid nodules. Because of the nature of the generalized weakness and multiple thyroid nodules I will check TSH T3-T4 and check an ultrasound of the thyroid. I might involve renal bec of this TIESHA and solitary kidney/kidney transplant pt Past Medical History Cardiovascular: CAD, HTN, Hyperlipidemia Pulmonary: COPD, Pneumonia CENTRAL NERVOUS SYSTEM: CVA, Seizure Heme/Onc: Anemia NOS Musculoskeletal: Osteoarthritis Infectious disease: Other Renal/: Chronic renal insuff, Chronic renal failure, Other Endocrine: Diabetes Past Surgical History Past Surgical History: Appendectomy, CABG, Hysterectomy, Other Family History Family History: Diabetes, Heart Disease Social History Smoke: No ALCOHOL: none Drugs: None Current Problem List Problem List Problems Medical Problems: (1) Sepsis Status: Acute (2) UTI (lower urinary tract infection) Status: Acute (3) Weakness Status: Acute Current Medications Current Medications Current Medications Piperacillin Sod/ Tazobactam Sod 4.5 gm/Sodium Chloride 100 ml @ 200 mls/hr 1X ONCE IV Last administered on 03/30/19at 19:50; Start 03/30/19 at 18:30; Stop 03/30/19 at 18:59; Status DC Sodium Chloride 1,000 ml @ 1,000 mls/hr 1X ONCE IV Last administered on 03/30/19at 18:30; Start 03/30/19 at 18:30; Stop 03/30/19 at 19:29; Status DC Ondansetron HCl (Zofran) 4 mg PRN Q8HRS PRN IV NAUSEA/VOMITING; Start 03/30/19 at 20:15; Stop 03/31/19 at 08:52; Status DC Acetaminophen (Tylenol) 650 mg PRN Q4HRS PRN PO FEVER; Start 03/30/19 at 20:15; Stop 03/31/19 at 20:14 Insulin Human Lispro (HumaLOG) 0-5 UNITS TIDWMEALS SQ ; Start 03/31/19 at 08:00; Stop 03/31/19 at 08:52; Status DC Dextrose (Dextrose 50%-Water Syringe) 12.5 gm PRN Q15MIN PRN IV SEE COMMENTS; Start 03/30/19 at 20:15; Status UNV Dextrose 250 ml PRN Q15MIN PRN IV SEE COMMENTS; Start 03/30/19 at 20:15 Sodium Chloride 1,000 ml @ 75 mls/hr 1X ONCE IV Last administered on 03/31/19at 01:53; Start 03/30/19 at 20:15; Stop 03/31/19 at 09:34; Status DC Ondansetron HCl (Zofran) 4 mg PRN Q6HRS PRN IV NAUSEA/VOMITING; Start 03/31/19 at 09:00 Sodium Chloride 1,000 ml @ 100 mls/hr Q10H IV ; Start 03/31/19 at 10:00 Temazepam (Restoril) 7.5 mg PRN QHS PRN PO INSOMNIA; Start 03/31/19 at 09:00 Ceftriaxone Sodium (Rocephin) 1 gm Q24H IVP Last administered on 03/31/19at 10:20; Start 03/31/19 at 10:00 Alprazolam (Xanax) 0.25 mg PRN BID PRN PO ANXIETY / AGITATION; Start 03/31/19 at 09:00 Aspirin (Gurwinder Aspirin) 325 mg DAILY PO Last administered on 03/31/19at 10:10; Start 03/31/19 at 09:00 Atorvastatin Calcium (Lipitor) 80 mg QHS PO ; Start 03/31/19 at 21:00 Bisacodyl (Dulcolax Tab) 20 mg DAILY PO Last administered on 03/31/19at 10:10; Start 03/31/19 at 09:00 Carvedilol (Coreg) 12.5 mg BIDWMEALS PO Last administered on 03/31/19 10:11; Start 03/31/19 at 09:00 Ferrous Sulfate (Feosol) 325 mg DAILY PO Last administered on 03/31/19at 10:10; Start 03/31/19 at 09:00 Vitamin B Complex/ Vitamin C (Vicki-Stacey) 1 tab DAILY PO Last administered on 03/31/19at 10:10; Start 03/31/19 at 09:00 Guaifenesin (Robitussin) 100 mg PRN QID PRN PO COUGH; Start 03/31/19 at 09:00 Acetaminophen/ Hydrocodone Bitart (Lortab 7.5/325) 1 tab PRN Q4HRS PRN PO MODERATE TO SEVEE PAIN; Start 03/31/19 at 09:00 Levetiracetam (Keppra) 500 mg BID PO Last administered on 03/31/19at 10:10; Start 03/31/19 at 09:00 Pantoprazole Sodium (Protonix) 40 mg DAILYAC PO Last administered on 03/31/19 10:10; Start 03/31/19 at 09:00 Fluconazole (Diflucan) 200 mg DAILY PO Last administered on 03/31/19 10:11; Start 03/31/19 at 09:00 Hydralazine HCl (Apresoline) 50 mg TID PO Last administered on 03/31/19at 10:10; Start 03/31/19 at 09:00 Insulin Human Lispro (HumaLOG) 6 units TIDWMEALS SQ ; Start 03/31/19 at 12:00 Insulin Glargine (Lantus) 40 units QHS SQ ; Start 03/31/19 at 21:00 Mycophenolate Sodium (Myfortic) 180 mg BID PO Last administered on 03/31/19at 11:00; Start 03/31/19 at 09:00 Non-Formulary Medication (Mycophenolate Sodium (Myfortic)) 180 mg BID PO ; Start 03/31/19 at 09:00; Status UNV Tacrolimus (Prograf) 0.5 mg QHS PO ; Start 03/31/19 at 21:00 Metoclopramide HCl (Reglan) 5 mg TIDAC PO Last administered on 03/31/19at 11:02; Start 03/31/19 at 11:30 Insulin Human Lispro (HumaLOG) 0-9 UNITS TIDWMEALS SQ ; Start 03/31/19 at 12:00 Dextrose (Dextrose 50%-Water Syringe) 12.5 gm PRN Q15MIN PRN IV SEE COMMENTS; Start 03/31/19 at 09:00 Dextrose 250 ml PRN Q15MIN PRN IV SEE COMMENTS; Start 03/31/19 at 09:00 Active Scripts Active [cefazolin] 2 Gm IV Q8HRS 40 Days Diflucan (Fluconazole) 100 Mg Tablet 200 Mg PO DAILY Reported Hydralazine Hcl 50 Mg Tablet 1 Tab PO TID Guaifenesin 100 Mg/5 Ml Liquid 100 Mg PO Dulcolax (Bisacodyl) 5 Mg Tablet.dr 4 Tab PO DAILY Ferrous Sulfate 325 Mg Tablet 1 Tab PO DAILY Lortab 7.5-325 mg Tablet (Hydrocodone/Acetaminophen) 1 Each Tablet 1 Tab PO PRN Q4HRS PRN Lasix (Furosemide) 40 Mg Tablet 1 Tab PO DAILY Prograf (Tacrolimus) 1 Mg Capsule 0.5 Mg PO HS Levemir (Insulin Detemir) 100 Unit/1 Ml Vial 40 Unit SQ QHS Lisinopril 10 Mg Tablet 1 Tab PO DAILY Xanax (Alprazolam) 0.25 Mg Tablet 0.25 Mg PO PRN BID PRN Nephro-Stacey Tablet (Folic Acid/Vitamin B Comp W-C) 0.8 Mg Tablet 1 Tab PO DAILY Myfortic (Mycophenolate Sodium) 180 Mg Tablet. 180 Mg PO BID Coreg (Carvedilol) 6.25 Mg Tablet 12.5 Mg PO BIDWMEALS Atorvastatin Calcium 40 Mg Tablet 2 Tab PO QHS Prednisone 5 Mg Tablet 5 Mg PO DAILY Metoclopramide Hcl 5 Mg Tablet 5 Mg PO TIDAC Levetiracetam 500 Mg Tablet 500 Mg PO BID Novolog (Insulin Aspart) 100 Unit/1 Ml Cartridge 6 Unit SQ TIDWMEALS Aspirin 325 Mg Tablet 325 Mg PO DAILY Protonix (Pantoprazole Sodium) 40 Mg Tablet. 40 Mg PO DAILY Allergies Allergies: Coded Allergies: adhesive tape (Verified Allergy, Intermediate, Hives, 11/02/18) blistered skin this admit I S O L A T I O N *CONTACT* (Verified Allergy, Unknown, 01/09/18) mrsa No Known Medication Allergies (Verified Allergy, Unknown, 01/09/18) ROS Review of System Weak only otherwise the rest of 14 point review with her is negative A 14 point ROS was completed with the following noted as positive: Other systems reviewed and negative. \CONSTITUTIONAL: No fever or chills EYES: No recent changes SKIN: No rash or itching CARDIOVASCULAR: No chest pain, syncope, palpitations, or edema RESPIRATORY: No SOB or cough GASTROINTESTINAL: No nausea, vomiting or abdominal pain NEUROLOGICAL: No headaches or weakness ENDOCRINE: No cold or heat intolerance GENITOURINARY: No urgency or frequency of urination MUSCULOSKELETAL: No back pain or joint pain LYMPHATICS: No enlarged lymph nodes PSYCHIATRIC: No anxiety or depression Physical Exam General: Alert, Oriented X3, Cooperative, No acute distress HEENT: Atraumatic, PERRLA, EOMI Lungs: Clear to auscultation, Normal air movement Heart: S1S2, RRR, no thrills, no rubs, no gallops, no murmurs Cardiovascular: S1, S2 Breasts: Normal, Rt breast nml w/o mass, Lt breast nml w/o mass, Nipples normal Abdomen: Normal bowel sounds, Soft, No tenderness, No hepatosplenomegaly, No masses Rectal Exam: not examined PELVIC: Nml ext genitalia Extremities: No clubbing, No cyanosis, No edema, Normal pulses, No tenderness/swelling Skin: No rashes, No breakdown, No significant lesion Neuro: Normal gait, Normal speech, Strength at 5/5 X4 ext, Normal tone, Sensation intact, Cranial nerves 3-12 NL, Reflexes 2+ Psych/Mental Status: Mental status NL, Mood NL Vitals Vitals Vital Signs Date Time Temp Pulse Resp B/P (MAP) Pulse Ox O2 Delivery O2 Flow Rate FiO2 03/31/19 10:48 98.9 79 18 174/68 (103) 96 Room Air 98.9 Labs Labs Laboratory Tests Test 03/30/19 18:10 03/30/19 18:28 03/30/19 19:40 03/31/19 00:05 White Blood Count 17.0 x10^3/uL (4.0-11.0) Red Blood Count 4.13 x10^6/uL (3.50-5.40) Hemoglobin 10.7 g/dL (12.0-15.5) Hematocrit 34.1 % (36.0-47.0) Mean Corpuscular Volume 83 fL (79-100) Mean Corpuscular Hemoglobin 26 pg (25-35) Mean Corpuscular Hemoglobin Concent 31 g/dL (31-37) Red Cell Distribution Width 15.9 % (11.5-14.5) Platelet Count 221 x10^3/uL (140-400) Neutrophils (%) (Auto) 87 % (31-73) Lymphocytes (%) (Auto) 6 % (24-48) Monocytes (%) (Auto) 7 % (0-9) Eosinophils (%) (Auto) 0 % (0-3) Basophils (%) (Auto) 0 % (0-3) Neutrophils # (Auto) 14.7 x10^3/uL (1.8-7.7) Lymphocytes # (Auto) 1.0 x10^3/uL (1.0-4.8) Monocytes # (Auto) 1.3 x10^3/uL (0.0-1.1) Eosinophils # (Auto) 0.0 x10^3/uL (0.0-0.7) Basophils # (Auto) 0.1 x10^3/uL (0.0-0.2) Segmented Neutrophils % 82 % (35-66) Band Neutrophils % 3 % (0-9) Lymphocytes % 6 % (24-48) Monocytes % 9 % (0-10) Platelet Estimate Adequate (ADEQUATE) Prothrombin Time 12.6 SEC (11.7-14.0) Prothromb Time International Ratio 1.0 (0.8-1.1) Activated Partial Thromboplast Time 28 SEC (24-38) Lactic Acid Level 1.7 mmol/L (0.4-2.0) Urine Collection Type U cath Urine Color Yellow Urine Clarity Clear Urine pH 5.0 Urine Specific [place] 1.020 Urine Protein 100 mg/dL (NEG-TRACE) Urine Glucose (UA) Negative mg/dL (NEG) Urine Ketones (Stick) Negative mg/dL (NEG) Urine Blood Negative (NEG) Urine Nitrite Negative (NEG) Urine Bilirubin Negative (NEG) Urine Urobilinogen Dipstick 0.2 mg/dL (0.2 mg/dL) Urine Leukocyte Esterase Moderate (NEG) Urine RBC 0 /HPF (0-2) Urine WBC >40 /HPF (0-4) Urine Bacteria Many /HPF (0-FEW) Sodium Level 137 mmol/L (136-145) Potassium Level 4.7 mmol/L (3.5-5.1) Chloride Level 102 mmol/L (98-107) Carbon Dioxide Level 22 mmol/L (21-32) Anion Gap 13 (6-14) Blood Urea Nitrogen 50 mg/dL (7-20) Creatinine 1.7 mg/dL (0.6-1.0) Estimated GFR (Cockcroft-Gault) 36.5 BUN/Creatinine Ratio 29 (6-20) Glucose Level 201 mg/dL (70-99) Calcium Level 9.9 mg/dL (8.5-10.1) Magnesium Level 1.7 mg/dL (1.8-2.4) Total Bilirubin 0.4 mg/dL (0.2-1.0) Aspartate Amino Transf (AST/SGOT) 17 U/L (15-37) Alanine Aminotransferase (ALT/SGPT) 24 U/L (14-59) Alkaline Phosphatase 67 U/L (46-116) Ammonia 12 mcmol/L (11-34) Creatine Kinase 129 U/L (26-192) Creatine Kinase MB (Mass) 0.8 ng/mL (0.0-3.6) Creatine Kinase MB Relative Index 0.6 % (0-4) Troponin I Quantitative 0.030 ng/mL (0.000-0.055) 0.023 ng/mL (0.000-0.055) Total Protein 6.5 g/dL (6.4-8.2) Albumin 3.4 g/dL (3.4-5.0) Albumin/Globulin Ratio 1.1 (1.0-1.7) Test 03/31/19 02:45 03/31/19 07:49 Troponin I Quantitative 0.029 ng/mL (0.000-0.055) Thyroid Stimulating Hormone (TSH) 0.707 uIU/mL (0.358-3.74) Glucose (Fingerstick) 152 mg/dL (70-99) Laboratory Tests Test 03/30/19 18:10 03/30/19 18:28 03/30/19 19:40 03/31/19 00:05 White Blood Count 17.0 x10^3/uL (4.0-11.0) Red Blood Count 4.13 x10^6/uL (3.50-5.40) Hemoglobin 10.7 g/dL (12.0-15.5) Hematocrit 34.1 % (36.0-47.0) Mean Corpuscular Volume 83 fL (79-100) Mean Corpuscular Hemoglobin 26 pg (25-35) Mean Corpuscular Hemoglobin Concent 31 g/dL (31-37) Red Cell Distribution Width 15.9 % (11.5-14.5) Platelet Count 221 x10^3/uL (140-400) Neutrophils (%) (Auto) 87 % (31-73) Lymphocytes (%) (Auto) 6 % (24-48) Monocytes (%) (Auto) 7 % (0-9) Eosinophils (%) (Auto) 0 % (0-3) Basophils (%) (Auto) 0 % (0-3) Neutrophils # (Auto) 14.7 x10^3/uL (1.8-7.7) Lymphocytes # (Auto) 1.0 x10^3/uL (1.0-4.8) Monocytes # (Auto) 1.3 x10^3/uL (0.0-1.1) Eosinophils # (Auto) 0.0 x10^3/uL (0.0-0.7) Basophils # (Auto) 0.1 x10^3/uL (0.0-0.2) Segmented Neutrophils % 82 % (35-66) Band Neutrophils % 3 % (0-9) Lymphocytes % 6 % (24-48) Monocytes % 9 % (0-10) Platelet Estimate Adequate (ADEQUATE) Prothrombin Time 12.6 SEC (11.7-14.0) Prothromb Time International Ratio 1.0 (0.8-1.1) Activated Partial Thromboplast Time 28 SEC (24-38) Lactic Acid Level 1.7 mmol/L (0.4-2.0) Urine Collection Type U cath Urine Color Yellow Urine Clarity Clear Urine pH 5.0 Urine Specific [place] 1.020 Urine Protein 100 mg/dL (NEG-TRACE) Urine Glucose (UA) Negative mg/dL (NEG) Urine Ketones (Stick) Negative mg/dL (NEG) Urine Blood Negative (NEG) Urine Nitrite Negative (NEG) Urine Bilirubin Negative (NEG) Urine Urobilinogen Dipstick 0.2 mg/dL (0.2 mg/dL) Urine Leukocyte Esterase Moderate (NEG) Urine RBC 0 /HPF (0-2) Urine WBC >40 /HPF (0-4) Urine Bacteria Many /HPF (0-FEW) Sodium Level 137 mmol/L (136-145) Potassium Level 4.7 mmol/L (3.5-5.1) Chloride Level 102 mmol/L (98-107) Carbon Dioxide Level 22 mmol/L (21-32) Anion Gap 13 (6-14) Blood Urea Nitrogen 50 mg/dL (7-20) Creatinine 1.7 mg/dL (0.6-1.0) Estimated GFR (Cockcroft-Gault) 36.5 BUN/Creatinine Ratio 29 (6-20) Glucose Level 201 mg/dL (70-99) Calcium Level 9.9 mg/dL (8.5-10.1) Magnesium Level 1.7 mg/dL (1.8-2.4) Total Bilirubin 0.4 mg/dL (0.2-1.0) Aspartate Amino Transf (AST/SGOT) 17 U/L (15-37) Alanine Aminotransferase (ALT/SGPT) 24 U/L (14-59) Alkaline Phosphatase 67 U/L (46-116) Ammonia 12 mcmol/L (11-34) Creatine Kinase 129 U/L (26-192) Creatine Kinase MB (Mass) 0.8 ng/mL (0.0-3.6) Creatine Kinase MB Relative Index 0.6 % (0-4) Troponin I Quantitative 0.030 ng/mL (0.000-0.055) 0.023 ng/mL (0.000-0.055) Total Protein 6.5 g/dL (6.4-8.2) Albumin 3.4 g/dL (3.4-5.0) Albumin/Globulin Ratio 1.1 (1.0-1.7) Test 03/31/19 02:45 03/31/19 07:49 Troponin I Quantitative 0.029 ng/mL (0.000-0.055) Thyroid Stimulating Hormone (TSH) 0.707 uIU/mL (0.358-3.74) Glucose (Fingerstick) 152 mg/dL (70-99) VTE Prophylaxis Ordered VTE Prophylaxis Devices: Yes VTE Pharmacological Prophylaxi: Yes Assessment/Plan Assessment/Plan UTI in an elderly and renal transplant pt Renal transplant patient on immunosuppressants SNU resident Full code Generalized weakness-high fall risk Multiple thyroid nodules-check TSH T3-T4 and ultrasound given she came in with generalized weakness and these multiple thyroid nodules Sepsis with leukocytosis 17 with no organ dysfcn AK I creatinine 1.7 in the renal transplant patient History CABG MOd pCM Plan 2mN consult renal, IV fluid hydrated and avoid nephrotoxins Hold Lasix and lisinopril Check renal ultrasound Check TSH t3 t4 Okay for renal diet or regular diet Full code May transfer out of telemetry I have reconciled home meds FULL CODE PT./OT BAck to snu on dc SHARON KC MD Mar 31, 2019 11:09
[2019-03-31] MEDS: INSULIN LISPRO 300 UNITS/3 ML INSULN.PEN. SQ SCH ×4 (11:53→17:00)
--- NOTE | 2019-03-31 15:16 | RAD ---
THYROID ULTRASOUND: 03/31/2019 8:48 AM Indication: 63 years old Female. Thyroid nodules identified on CT cervical spine. Comparison: CT cervical spine March 30, 2019. FINDINGS: Right lobe: Normal in morphology and echotexture. Size: 5.4 x 1.7 x 2.0 cm Nodules: 1. Solid circumscribed hypoechoic nodule measuring 7 x 5 x 5 mm (TR 4) 2. Predominant cystic, partly solid nodule measuring 16 x 17 x 8 mm (TR 3). 3. Predominately cystic, part solid nodule measuring 7 x 7 x 5 mm (TR 3). Left lobe: Normal in morphology and echotexture. Size: 5.4 x 2.2 x 2.5 cm Nodules: 1. Mixed cystic and solid 18 x 20 x 14 mm nodule in the inferior left thyroid lobe (TR 3). 2. Predominantly cystic nodule with thin septation in the mid left thyroid gland measuring 22 x 20 x 16 mm (TR 3). Isthmus: Unremarkable. IMPRESSION: Multiple thyroid nodules are identified within the thyroid gland. Recommend one-year follow-up thyroid ultrasound assess stability. Electronically signed by: Malu Parker MD (03/31/2019 3:13 PM) [facility]
[2019-03-31 15:27] VITALS: BP 129/41
[2019-03-31] MEDS: IV NORMAL SALINE 1000ML BAG 1,000 ML IV SCH ×2 (17:20→19:15)
[2019-03-31 19:53] VITALS: BP 125/43
[2019-03-31] MEDS: ATORVASTATIN CALCIUM 40 MG TABLET. PO SCH (20:31)
[2019-03-31] MEDS: TACROLIMUS 0.5 MG CAPSULE PO SCH (20:31)
[2019-03-31] MEDS: INSULIN GLARGINE 300 UNITS/3 ML INSULN.PEN. SQ SCH (20:39)
[2019-03-31] MEDS ORDERED: LOPERAMIDE 2 MG CAPSULE PO PRN (21:45)
[2019-03-31 23:57] VITALS: BP 132/56
--- NOTE | 2019-04-01 01:06 | NUR ---
Report given to DOMINIC Scott who assumed care of patient
[2019-04-01 03:10] LABS: HEMOGLOBIN A1C 8.9 % (4.8-5.6)
[2019-04-01 03:55] VITALS: BP 139/54
--- NOTE | 2019-04-01 06:42 | EKG ---
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
[2019-04-01 07:00] VITALS: BP 158/52
[2019-04-01] MEDS: INSULIN LISPRO 300 UNITS/3 ML INSULN.PEN. SQ SCH ×6 (08:00→17:21)
[2019-04-01] MEDS: ASPIRIN 325 MG TABLET PO SCH (08:27)
[2019-04-01] MEDS: BISACODYL 5 MG TABLET.DR. PO SCH (08:27)
[2019-04-01] MEDS: FLUCONAZOLE 100 MG TABLET. PO SCH (08:28)
[2019-04-01] MEDS: FOLIC/VIT B COMP W-C (RENAL) TABLET. PO SCH (08:28)
[2019-04-01] MEDS: METOCLOPRAMIDE 5 MG TABLET. PO SCH ×3 (08:28→17:11)
[2019-04-01] MEDS: levETIRAcetam 500 MG TABLET PO SCH ×2 (08:28→21:18)
[2019-04-01] MEDS: PANTOPRAZOLE 40 MG TABLET.DR. PO SCH (08:28)
[2019-04-01] MEDS: MYCOPHENOLATE ACID 180 MG TABLET.DR. PO SCH ×2 (08:29→21:18)
[2019-04-01] MEDS: CARVEDILOL 12.5 MG TABLET. PO SCH ×2 (08:29→17:11)
[2019-04-01] MEDS: FERROUS SULFATE 325 MG TABLET. PO SCH (08:34)
[2019-04-01] MEDS: cefTRIAXone IV Push 1 GM VIAL. IVP SCH (09:10)
[2019-04-01 09:58] LABS: CALCIUM 9.8 mg/dL (8.5-10.1); CREATININE 1.4 mg/dL (0.6-1.0); GFR 45.7; POTASSIUM 3.7 mmol/L (3.5-5.1)
--- NOTE | 2019-04-01 10:02 | PDOC ---
PROGRESS NOTES Subjective Subjective change of service from HIMS to my care, she is my nursing home patient. Objective Objective Vital Signs Date Time Temp Pulse Resp B/P (MAP) Pulse Ox O2 Delivery O2 Flow Rate FiO2 04/01/19 08:29 76 139/54 04/01/19 08:00 Room Air 04/01/19 03:55 98.0 20 99 98.0 Intake and Output 04/01/19 07:00 Intake Total 720 ml Output Total 1 ml Balance 719 ml Intake Oral 720 ml Output Urine Total 1 ml # Voids 3 # Bowel Movements 6 Physical Exam Abdomen: Normal bowel sounds, Soft, No tenderness, No hepatosplenomegaly, No masses Extremities: No clubbing, No cyanosis, No edema, Normal pulses, No tenderness/swelling General: Alert, Oriented X3, Cooperative, No acute distress HEENT: Atraumatic, PERRLA, EOMI Lungs: Clear to auscultation, Normal air movement MUSCULOSKELETAL: No swelling Neuro: Normal gait, Normal speech, Strength at 5/5 X4 ext, Normal tone, Sensation intact, Cranial nerves 3-12 NL, Reflexes 2+ Psych/Mental Status: Mental status NL, Mood NL Skin: No rashes, No breakdown, No significant lesion Diagnosis Problem List Problems Medical Problems: (1) TIESHA (acute kidney injury) Status: Acute (2) Multiple thyroid nodules Status: Chronic (3) Sepsis Status: Acute (4) UTI (lower urinary tract infection) Status: Acute (5) Weakness Status: Acute Assessment Assessment Problems Medical Problems: (1) TIESHA (acute kidney injury) Status: Acute (2) Multiple thyroid nodules Status: Chronic (3) Sepsis Status: Acute (4) UTI (lower urinary tract infection) Status: Acute (5) Weakness Status: Acute Assessment/Plan UTI in an elderly and renal transplant pt Renal transplant patient on immunosuppressants SNU resident Full code Generalized weakness-high fall risk Multiple thyroid nodules-check TSH T3-T4 and ultrasound given she came in with generalized weakness and these multiple thyroid nodules Sepsis with leukocytosis 17 with no organ dysfcn AK I creatinine 1.7 in the renal transplant patient History CABG Old CVA Plan :IV Rocephin for uti. urine c/s pending. wbc 17, cr 1.7 monitor labs today consult renal, IV fluid hydrated and avoid nephrotoxins Hold Lasix and lisinopril Check thyroid ultrasound Check TSH t3 t4 Okay for renal diet or regular diet Full code Plan Plan of Care Problems Medical Problems: (1) TIESHA (acute kidney injury) Status: Acute (2) Multiple thyroid nodules Status: Chronic (3) Sepsis Status: Acute (4) UTI (lower urinary tract infection) Status: Acute (5) Weakness Status: Acute Comment Review of Relevant I have reviewed the following items warner (where applicable) has been applied. Labs Laboratory Tests Test 03/31/19 11:07 03/31/19 16:26 03/31/19 20:29 04/01/19 08:26 Glucose (Fingerstick) 262 mg/dL (70-99) 128 mg/dL (70-99) 220 mg/dL (70-99) 104 mg/dL (70-99) Microbiology 03/30/19 Blood Culture - Preliminary, Resulted NO GROWTH AFTER 1 DAY Medications Current Medications Atorvastatin Calcium (Lipitor) 80 mg QHS PO Last administered on 03/31/19 2 0:31; Start 03/31/19 at 21:00 Ceftriaxone Sodium (Rocephin) 1 gm Q24H IVP Last administered on 04/01/19 09:10; Start 03/31/19 at 10:00 Insulin Glargine (Lantus) 40 units QHS SQ Last administered on 03/31/19 20:39; Start 03/31/19 at 21:00 Insulin Human Lispro (HumaLOG) 0-9 UNITS TIDWMEALS SQ Last administered on 03/31/19 11:54; Start 03/31/19 at 12:00 Insulin Human Lispro (HumaLOG) 6 units TIDWMEALS SQ Last administered on 04/01/19 08:36; Start 03/31/19 at 12:00 Loperamide HCl (Imodium) 2 mg PRN Q15MIN PRN PO DIARRHEA Last administered on 03/31/19 22:30; Start 03/31/19 at 21:45 Metoclopramide HCl (Reglan) 5 mg TIDAC PO Last administered on 04/01/19 08:28; Start 03/31/19 at 11:30 Sodium Chloride 1,000 ml @ 100 mls/hr Q10H IV Last administered on 03/31/19 17:20; Start 03/31/19 at 10:00 Tacrolimus (Prograf) 0.5 mg QHS PO Last administered on 03/31/19at 20:31; Start 03/31/19 at 21:00 Vitals/I & O Vital Sign - Last 24 Hours 03/31/19 03/31/19 03/31/19 03/31/19 10:10 10:11 10:48 14:42 Temp 98.9 98.9 Pulse 80 80 79 79 Resp 18 B/P (MAP) 174/71 174/71 174/68 (103) 174/68 Pulse Ox 96 O2 Delivery Room Air 03/31/19 03/31/19 03/31/19 03/31/19 15:27 17:20 19:53 20:00 Temp 98.4 97.6 98.4 97.6 Pulse 79 79 76 Resp 18 18 B/P (MAP) 129/41 (70) 129/41 125/43 (70) Pulse Ox 98 97 O2 Delivery Room Air Room Air Room Air 03/31/19 03/31/19 04/01/19 04/01/19 20:31 23:57 03:55 08:00 Temp 97.8 98.0 97.8 98.0 Pulse 76 77 76 Resp 20 20 B/P (MAP) 125/43 132/56 (81) 139/54 (82) Pulse Ox 100 99 O2 Delivery Room Air Room Air Room Air 04/01/19 04/01/19 08:28 08:29 Pulse 76 76 B/P (MAP) 139/54 139/54 Intake and Output 03/31/19 03/31/19 04/01/19 15:00 23:00 07:00 Intake Total 540 ml 180 ml Output Total 1 ml Balance 540 ml 179 ml AUGUSTO BRUNER MD Apr 01, 2019 10:02
[2019-04-01 10:19] LABS: BASO % 0 % (0-3); EOS # 0.1 x10^3/uL (0.0-0.7); EOS % 2 % (0-3); HEMATOCRIT 30.9 % (36.0-47.0); HEMOGLOBIN 9.7 g/dL (12.0-15.5); LYMPH # 1.2 x10^3/uL (1.0-4.8); LYMPH % 16 % (24-48); MEAN CORPUSCULAR HEMOGLOBIN 26 pg (25-35); MEAN CORPUSCULAR HGB CONC 32 g/dL (31-37); MEAN CORPUSCULAR VOLUME 83 fL (79-100); MONO # 0.7 x10^3/uL (0.0-1.1); MONO % 9 % (0-9); NEUT # 5.6 x10^3/uL (1.8-7.7); NEUT % 73 % (31-73); PLATELET COUNT 202 x10^3/uL (140-400); RED BLOOD COUNT 3.72 x10^6/uL (3.50-5.40); RED CELL DISTRIBUTION WIDTH 16.2 % (11.5-14.5); WHITE BLOOD COUNT 7.6 x10^3/uL (4.0-11.0)
--- NOTE | 2019-04-01 10:39 | NUR ---
SW following pt for dc planning. Chart reviewed and discussed with RN. YINA confirmed with [facility] at [facility], , fax: [phone], Pt is LTC resident. Will continue to follow.
--- NOTE | 2019-04-01 10:47 | NUR ---
IP: Pt has a hx of mrsa since 2016 with most recent a + mrsa screen on 12/22/17. Pt to be in contact precautions until there are 2 negative screens 7 days apart.
[2019-04-01 11:00] VITALS: BP 126/57
--- NOTE | 2019-04-01 11:18 | PDOC2 ---
CONSULT Date of Consult Date of Consult DATE: 04/01/19 TIME: 11:16 Reason for Consult Reason for Consult: TIESHA Source Source: Chart review, Patient History of Present Illness Reason for Visit: 83-year-old -[place] female who is in SNU resident brought in because was generalized weakness. Found have a UTI. She is not a good historian She is s/p renal transplant . No N/V/D. No CP/SOB Past Medical History Cardiovascular: CAD, HTN, Hyperlipidemia Pulmonary: COPD, Pneumonia CENTRAL NERVOUS SYSTEM: CVA, Seizure Heme/Onc: Anemia NOS Musculoskeletal: Osteoarthritis Infectious disease: Other Renal/: Chronic renal insuff, Chronic renal failure, Other Endocrine: Diabetes Past Surgical History Past Surgical History: Appendectomy, CABG, Hysterectomy, Other Family History Family History: Diabetes, Heart Disease Social History No ALCOHOL: none Drugs: None Lives: Group Home Domestic Violence: Neg Current Problem List Problem List Problems Medical Problems: (1) TIESHA (acute kidney injury) Status: Acute (2) Multiple thyroid nodules Status: Chronic (3) Sepsis Status: Acute (4) UTI (lower urinary tract infection) Status: Acute (5) Weakness Status: Acute Current Medications Current Medications Current Medications Piperacillin Sod/ Tazobactam Sod 4.5 gm/Sodium Chloride 100 ml @ 200 mls/hr 1X ONCE IV Last administered on 03/30/19at 19:50; Start 03/30/19 at 18:30; Stop 03/30/19 at 18:59; Status DC Sodium Chloride 1,000 ml @ 1,000 mls/hr 1X ONCE IV Last administered on 03/30/19at 18:30; Start 03/30/19 at 18:30; Stop 03/30/19 at 19:29; Status DC Ondansetron HCl (Zofran) 4 mg PRN Q8HRS PRN IV NAUSEA/VOMITING; Start 03/30/19 at 20:15; Stop 03/31/19 at 08:52; Status DC Acetaminophen (Tylenol) 650 mg PRN Q4HRS PRN PO FEVER; Start 03/30/19 at 20:15; Stop 03/31/19 at 20:14; Status DC Insulin Human Lispro (HumaLOG) 0-5 UNITS TIDWMEALS SQ ; Start 03/31/19 at 08:00; Stop 03/31/19 at 08:52; Status DC Dextrose (Dextrose 50%-Water Syringe) 12.5 gm PRN Q15MIN PRN IV SEE COMMENTS; Start 03/30/19 at 20:15; Status UNV Dextrose 250 ml PRN Q15MIN PRN IV SEE COMMENTS; Start 03/30/19 at 20:15 Sodium Chloride 1,000 ml @ 75 mls/hr 1X ONCE IV Last administered on 03/31/19at 01:53; Start 03/30/19 at 20:15; Stop 03/31/19 at 09:34; Status DC Ondansetron HCl (Zofran) 4 mg PRN Q6HRS PRN IV NAUSEA/VOMITING; Start 03/31/19 at 09:00 Sodium Chloride 1,000 ml @ 100 mls/hr Q10H IV Last administered on 03/31/19 17:20; Start 03/31/19 at 10:00 Temazepam (Restoril) 7.5 mg PRN QHS PRN PO INSOMNIA; Start 03/31/19 at 09:00 Ceftriaxone Sodium (Rocephin) 1 gm Q24H IVP Last administered on 04/01/19 09:10; Start 03/31/19 at 10:00 Alprazolam (Xanax) 0.25 mg PRN BID PRN PO ANXIETY / AGITATION; Start 03/31/19 at 09:00 Aspirin (Gurwinder Aspirin) 325 mg DAILY PO Last administered on 04/01/19 08:27; Start 03/31/19 at 09:00 Atorvastatin Calcium (Lipitor) 80 mg QHS PO Last administered on 03/31/19 20:31; Start 03/31/19 at 21:00 Bisacodyl (Dulcolax Tab) 20 mg DAILY PO Last administered on 04/01/19 08:27; Start 03/31/19 at 09:00 Carvedilol (Coreg) 12.5 mg BIDWMEALS PO Last administered on 04/01/19 08:29; Start 03/31/19 at 09:00 Ferrous Sulfate (Feosol) 325 mg DAILY PO Last administered on 04/01/19 08:34; Start 03/31/19 at 09:00 Vitamin B Complex/ Vitamin C (Vicki-Stacey) 1 tab DAILY PO Last administered on 04/01/19 08:28; Start 03/31/19 at 09:00 Guaifenesin (Robitussin) 100 mg PRN QID PRN PO COUGH; Start 03/31/19 at 09:00 Acetaminophen/ Hydrocodone Bitart (Lortab 7.5/325) 1 tab PRN Q4HRS PRN PO MODERATE TO SEVEE PAIN; Start 03/31/19 at 09:00 Levetiracetam (Keppra) 500 mg BID PO Last administered on 04/01/19 08:28; Start 03/31/19 at 09:00 Pantoprazole Sodium (Protonix) 40 mg DAILYAC PO Last administered on 04/01/19 08:28; Start 03/31/19 at 09:00 Fluconazole (Diflucan) 200 mg DAILY PO Last administered on 04/01/19 08:28; Start 03/31/19 at 09:00 Hydralazine HCl (Apresoline) 50 mg TID PO Last administered on 04/01/19 08:28; Start 03/31/19 at 09:00 Insulin Human Lispro (HumaLOG) 6 units TIDWMEALS SQ Last administered on 04/01/19 08:36; Start 03/31/19 at 12:00 Insulin Glargine (Lantus) 40 units QHS SQ Last administered on 03/31/19 20:39; Start 03/31/19 at 21:00 Mycophenolate Sodium (Myfortic) 180 mg BID PO Last administered on 04/01/19 08:29; Start 03/31/19 at 09:00 Non-Formulary Medication (Mycophenolate Sodium (Myfortic)) 180 mg BID PO ; Start 03/31/19 at 09:00; Status UNV Tacrolimus (Prograf) 0.5 mg QHS PO Last administered on 03/31/19 20:31; Start 03/31/19 at 21:00 Metoclopramide HCl (Reglan) 5 mg TIDAC PO Last administered on 04/01/19 08:28; Start 03/31/19 at 11:30 Insulin Human Lispro (HumaLOG) 0-9 UNITS TIDWMEALS SQ Last administered on 03/31/19 11:54; Start 03/31/19 at 12:00 Dextrose (Dextrose 50%-Water Syringe) 12.5 gm PRN Q15MIN PRN IV SEE COMMENTS; Start 03/31/19 at 09:00 Dextrose 250 ml PRN Q15MIN PRN IV SEE COMMENTS; Start 03/31/19 at 09:00 Loperamide HCl (Imodium) 2 mg PRN Q15MIN PRN PO DIARRHEA Last administered on 03/31/19at 22:30; Start 03/31/19 at 21:45 Active Scripts Active [cefazolin] 2 Gm IV Q8HRS 40 Days Diflucan (Fluconazole) 100 Mg Tablet 200 Mg PO DAILY Reported Hydralazine Hcl 50 Mg Tablet 1 Tab PO TID Guaifenesin 100 Mg/5 Ml Liquid 100 Mg PO Dulcolax (Bisacodyl) 5 Mg Tablet. 4 Tab PO DAILY Ferrous Sulfate 325 Mg Tablet 1 Tab PO DAILY Lortab 7.5-325 mg Tablet (Hydrocodone/Acetaminophen) 1 Each Tablet 1 Tab PO PRN Q4HRS PRN Lasix (Furosemide) 40 Mg Tablet 1 Tab PO DAILY Prograf (Tacrolimus) 1 Mg Capsule 0.5 Mg PO HS Levemir (Insulin Detemir) 100 Unit/1 Ml Vial 40 Unit SQ QHS Lisinopril 10 Mg Tablet 1 Tab PO DAILY Xanax (Alprazolam) 0.25 Mg Tablet 0.25 Mg PO PRN BID PRN Nephro-Stacey Tablet (Folic Acid/Vitamin B Comp W-C) 0.8 Mg Tablet 1 Tab PO DAILY Myfortic (Mycophenolate Sodium) 180 Mg Tablet. 180 Mg PO BID Coreg (Carvedilol) 6.25 Mg Tablet 12.5 Mg PO BIDWMEALS Atorvastatin Calcium 40 Mg Tablet 2 Tab PO QHS Prednisone 5 Mg Tablet 5 Mg PO DAILY Metoclopramide Hcl 5 Mg Tablet 5 Mg PO TIDAC Levetiracetam 500 Mg Tablet 500 Mg PO BID Novolog (Insulin Aspart) 100 Unit/1 Ml Cartridge 6 Unit SQ TIDWMEALS Aspirin 325 Mg Tablet 325 Mg PO DAILY Protonix (Pantoprazole Sodium) 40 Mg Tablet. 40 Mg PO DAILY Allergies Allergies: Coded Allergies: adhesive tape (Verified Allergy, Intermediate, Hives, 11/02/18) blistered skin this admit I S O L A T I O N *CONTACT* (Verified Allergy, Unknown, 01/09/18) mrsa No Known Medication Allergies (Verified Allergy, Unknown, 01/09/18) ROS Review of System Per HPI Physical Exam Physical Exam General: NAD HEENT: OM moist Lungs: Clear to auscultation, Heart: S1S2, RRR, Abdomen: Soft, No renal tenderness Extremities: No edema Skin: No rashes Neuro: Grossly normal - No Mclaughlin Vital Signs Vital Signs Date Time Temp Pulse Resp B/P (MAP) Pulse Ox O2 Delivery O2 Flow Rate FiO2 04/01/19 08:29 76 139/54 04/01/19 08:00 Room Air 04/01/19 07:00 97.7 12 97 97.7 Assessment & Plan TIESHA- 2/2 UTI Improved to baseline Renal Transplant- Follows with Dr. Quinn at [facility] On Cellcept and Tacrolimus, continue home dose UTI- On Abx CKD stage 3- Stable, baseline Cr 1.4-1.7 Intermittent Tiesha DM - as per primary HTN- Antihypertensive Labs Labs Laboratory Tests Test 03/30/19 18:10 03/30/19 18:28 03/30/19 19:40 03/31/19 00:05 White Blood Count 17.0 x10^3/uL (4.0-11.0) Red Blood Count 4.13 x10^6/uL (3.50-5.40) Hemoglobin 10.7 g/dL (12.0-15.5) Hematocrit 34.1 % (36.0-47.0) Mean Corpuscular Volume 83 fL (79-100) Mean Corpuscular Hemoglobin 26 pg (25-35) Mean Corpuscular Hemoglobin Concent 31 g/dL (31-37) Red Cell Distribution Width 15.9 % (11.5-14.5) Platelet Count 221 x10^3/uL (140-400) Neutrophils (%) (Auto) 87 % (31-73) Lymphocytes (%) (Auto) 6 % (24-48) Monocytes (%) (Auto) 7 % (0-9) Eosinophils (%) (Auto) 0 % (0-3) Basophils (%) (Auto) 0 % (0-3) Neutrophils # (Auto) 14.7 x10^3/uL (1.8-7.7) Lymphocytes # (Auto) 1.0 x10^3/uL (1.0-4.8) Monocytes # (Auto) 1.3 x10^3/uL (0.0-1.1) Eosinophils # (Auto) 0.0 x10^3/uL (0.0-0.7) Basophils # (Auto) 0.1 x10^3/uL (0.0-0.2) Segmented Neutrophils % 82 % (35-66) Band Neutrophils % 3 % (0-9) Lymphocytes % 6 % (24-48) Monocytes % 9 % (0-10) Platelet Estimate Adequate (ADEQUATE) Prothrombin Time 12.6 SEC (11.7-14.0) Prothromb Time International Ratio 1.0 (0.8-1.1) Activated Partial Thromboplast Time 28 SEC (24-38) Lactic Acid Level 1.7 mmol/L (0.4-2.0) Urine Collection Type U cath Urine Color Yellow Urine Clarity Clear Urine pH 5.0 Urine Specific [place] 1.020 Urine Protein 100 mg/dL (NEG-TRACE) Urine Glucose (UA) Negative mg/dL (NEG) Urine Ketones (Stick) Negative mg/dL (NEG) Urine Blood Negative (NEG) Urine Nitrite Negative (NEG) Urine Bilirubin Negative (NEG) Urine Urobilinogen Dipstick 0.2 mg/dL (0.2 mg/dL) Urine Leukocyte Esterase Moderate (NEG) Urine RBC 0 /HPF (0-2) Urine WBC >40 /HPF (0-4) Urine Bacteria Many /HPF (0-FEW) Sodium Level 137 mmol/L (136-145) Potassium Level 4.7 mmol/L (3.5-5.1) Chloride Level 102 mmol/L (98-107) Carbon Dioxide Level 22 mmol/L (21-32) Anion Gap 13 (6-14) Blood Urea Nitrogen 50 mg/dL (7-20) Creatinine 1.7 mg/dL (0.6-1.0) Estimated GFR (Cockcroft-Gault) 36.5 BUN/Creatinine Ratio 29 (6-20) Glucose Level 201 mg/dL (70-99) Calcium Level 9.9 mg/dL (8.5-10.1) Magnesium Level 1.7 mg/dL (1.8-2.4) Total Bilirubin 0.4 mg/dL (0.2-1.0) Aspartate Amino Transf (AST/SGOT) 17 U/L (15-37) Alanine Aminotransferase (ALT/SGPT) 24 U/L (14-59) Alkaline Phosphatase 67 U/L (46-116) Ammonia 12 mcmol/L (11-34) Creatine Kinase 129 U/L (26-192) Creatine Kinase MB (Mass) 0.8 ng/mL (0.0-3.6) Creatine Kinase MB Relative Index 0.6 % (0-4) Troponin I Quantitative 0.030 ng/mL (0.000-0.055) 0.023 ng/mL (0.000-0.055) Total Protein 6.5 g/dL (6.4-8.2) Albumin 3.4 g/dL (3.4-5.0) Albumin/Globulin Ratio 1.1 (1.0-1.7) Test 03/31/19 02:09 03/31/19 02:45 03/31/19 07:49 03/31/19 11:07 Nasal Screen MRSA (PCR) Negative (Negative) Hemoglobin A1c 8.9 % (4.8-5.6) Troponin I Quantitative 0.029 ng/mL (0.000-0.055) Thyroid Stimulating Hormone (TSH) 0.707 uIU/mL (0.358-3.74) Glucose (Fingerstick) 152 mg/dL (70-99) 262 mg/dL (70-99) Test 03/31/19 16:26 03/31/19 20:29 04/01/19 08:26 04/01/19 09:10 Glucose (Fingerstick) 128 mg/dL (70-99) 220 mg/dL (70-99) 104 mg/dL (70-99) White Blood Count 7.6 x10^3/uL (4.0-11.0) Red Blood Count 3.72 x10^6/uL (3.50-5.40) Hemoglobin 9.7 g/dL (12.0-15.5) Hematocrit 30.9 % (36.0-47.0) Mean Corpuscular Volume 83 fL (79-100) Mean Corpuscular Hemoglobin 26 pg (25-35) Mean Corpuscular Hemoglobin Concent 32 g/dL (31-37) Red Cell Distribution Width 16.2 % (11.5-14.5) Platelet Count 202 x10^3/uL (140-400) Neutrophils (%) (Auto) 73 % (31-73) Lymphocytes (%) (Auto) 16 % (24-48) Monocytes (%) (Auto) 9 % (0-9) Eosinophils (%) (Auto) 2 % (0-3) Basophils (%) (Auto) 0 % (0-3) Neutrophils # (Auto) 5.6 x10^3/uL (1.8-7.7) Lymphocytes # (Auto) 1.2 x10^3/uL (1.0-4.8) Monocytes # (Auto) 0.7 x10^3/uL (0.0-1.1) Eosinophils # (Auto) 0.1 x10^3/uL (0.0-0.7) Basophils # (Auto) 0.0 x10^3/uL (0.0-0.2) Sodium Level 144 mmol/L (136-145) Potassium Level 3.7 mmol/L (3.5-5.1) Chloride Level 110 mmol/L (98-107) Carbon Dioxide Level 21 mmol/L (21-32) Anion Gap 13 (6-14) Blood Urea Nitrogen 32 mg/dL (7-20) Creatinine 1.4 mg/dL (0.6-1.0) Estimated GFR (Cockcroft-Gault) 45.7 Glucose Level 110 mg/dL (70-99) Calcium Level 9.8 mg/dL (8.5-10.1) Laboratory Tests Test 03/31/19 16:26 03/31/19 20:29 04/01/19 08:26 04/01/19 09:10 Glucose (Fingerstick) 128 mg/dL (70-99) 220 mg/dL (70-99) 104 mg/dL (70-99) White Blood Count 7.6 x10^3/uL (4.0-11.0) Red Blood Count 3.72 x10^6/uL (3.50-5.40) Hemoglobin 9.7 g/dL (12.0-15.5) Hematocrit 30.9 % (36.0-47.0) Mean Corpuscular Volume 83 fL (79-100) Mean Corpuscular Hemoglobin 26 pg (25-35) Mean Corpuscular Hemoglobin Concent 32 g/dL (31-37) Red Cell Distribution Width 16.2 % (11.5-14.5) Platelet Count 202 x10^3/uL (140-400) Neutrophils (%) (Auto) 73 % (31-73) Lymphocytes (%) (Auto) 16 % (24-48) Monocytes (%) (Auto) 9 % (0-9) Eosinophils (%) (Auto) 2 % (0-3) Basophils (%) (Auto) 0 % (0-3) Neutrophils # (Auto) 5.6 x10^3/uL (1.8-7.7) Lymphocytes # (Auto) 1.2 x10^3/uL (1.0-4.8) Monocytes # (Auto) 0.7 x10^3/uL (0.0-1.1) Eosinophils # (Auto) 0.1 x10^3/uL (0.0-0.7) Basophils # (Auto) 0.0 x10^3/uL (0.0-0.2) Sodium Level 144 mmol/L (136-145) Potassium Level 3.7 mmol/L (3.5-5.1) Chloride Level 110 mmol/L (98-107) Carbon Dioxide Level 21 mmol/L (21-32) Anion Gap 13 (6-14) Blood Urea Nitrogen 32 mg/dL (7-20) Creatinine 1.4 mg/dL (0.6-1.0) Estimated GFR (Cockcroft-Gault) 45.7 Glucose Level 110 mg/dL (70-99) Calcium Level 9.8 mg/dL (8.5-10.1) Review All relevant outside records, renal labs, imaging studies, telemetry/EKG's were reviewed. CASS HUITRON MD Apr 01, 2019 11:18
--- NOTE | 2019-04-01 11:30 | NUR ---
attempted to restart iv after pt pulled iv out of her right ac. pt stated "I didn't know what it was." 2 rn's attempted and nursing supervisor braiding, Etelvina, without success. called dr shelton. order received to change pt to po antibiotic and dc iv fluids and to remain without an iv site.
[2019-04-01] MEDS: CEFDINIR 300 MG CAPSULE PO SCH ×2 (12:28→21:18)
[2019-04-01 15:00] VITALS: BP 140/63
--- NOTE | 2019-04-01 16:28 | NUR ---
Wound care: Patient seen per wound care consult. Patient has no open wounds at this time. Left great toe is scabbed at this time. Patient also has scabbed to left lateral ankle. Aquacel foam dressings are placed on these areas for protection. Patient refused to allow wound care to assess her backside at this time. Patient stated she had no wounds on her bottom and did not want to move at this time. Spoke with DOMINIC Higgins at this time. Will follow patient for prevention. Bed lowered and call light in reach.
[2019-04-01 19:12] VITALS: BP 141/54
[2019-04-01] MEDS: ATORVASTATIN CALCIUM 40 MG TABLET. PO SCH (21:18)
[2019-04-01] MEDS: TACROLIMUS 0.5 MG CAPSULE PO SCH (21:18)
[2019-04-01] MEDS: INSULIN GLARGINE 300 UNITS/3 ML INSULN.PEN. SQ SCH (21:24)
[2019-04-01] MEDS ORDERED: INSU100C SQ (22:48)
[2019-04-01] MEDS ORDERED: CEFD300C PO (22:48)
[2019-04-01 23:46] VITALS: BP 149/46
[2019-04-02 00:01] VITALS: BP 149/46
[2019-04-02 03:20] VITALS: BP 159/58
[2019-04-02 04:38] LABS: BASO % 0 % (0-3); EOS # 0.2 x10^3/uL (0.0-0.7); EOS % 3 % (0-3); HEMATOCRIT 27.8 % (36.0-47.0); HEMOGLOBIN 8.9 g/dL (12.0-15.5); LYMPH # 1.6 x10^3/uL (1.0-4.8); LYMPH % 24 % (24-48); MEAN CORPUSCULAR HEMOGLOBIN 26 pg (25-35); MEAN CORPUSCULAR HGB CONC 32 g/dL (31-37); MEAN CORPUSCULAR VOLUME 82 fL (79-100); MONO # 0.8 x10^3/uL (0.0-1.1); MONO % 11 % (0-9); NEUT # 4.3 x10^3/uL (1.8-7.7); NEUT % 62 % (31-73); PLATELET COUNT 212 x10^3/uL (140-400); RED BLOOD COUNT 3.38 x10^6/uL (3.50-5.40); WHITE BLOOD COUNT 6.9 x10^3/uL (4.0-11.0)
[2019-04-02 07:00] VITALS: BP 163/104
[2019-04-02 07:52] LABS: CALCIUM 9.6 mg/dL (8.5-10.1); CREATININE 1.4 mg/dL (0.6-1.0); GFR 45.7
--- NOTE | 2019-04-02 09:31 | PDOC ---
PROGRESS NOTES Subjective Subjective feels good ,want to go back to [place] Objective Objective Vital Signs Date Time Temp Pulse Resp B/P (MAP) Pulse Ox O2 Delivery O2 Flow Rate FiO2 04/02/19 03:20 98.3 77 16 159/58 (91) 97 Room Air 98.3 Intake and Output 04/02/19 07:00 Intake Total 810 ml Balance 810 ml Intake Oral 410 ml IV Total 400 ml # Voids 3 # Bowel Movements 1 Physical Exam Abdomen: Normal bowel sounds, Soft, No tenderness, No hepatosplenomegaly, No masses Extremities: No clubbing, No cyanosis, No edema, Normal pulses, No tenderness/swelling General: Alert, Oriented X3, Cooperative, No acute distress HEENT: Atraumatic, PERRLA, EOMI Lungs: Clear to auscultation, Normal air movement MUSCULOSKELETAL: No swelling Neuro: Normal gait, Normal speech, Strength at 5/5 X4 ext, Normal tone, Sensation intact, Cranial nerves 3-12 NL, Reflexes 2+ Psych/Mental Status: Mental status NL, Mood NL Skin: No rashes, No breakdown, No significant lesion Diagnosis Problem List Problems Medical Problems: (1) TIESHA (acute kidney injury) Status: Acute (2) Multiple thyroid nodules Status: Chronic (3) Sepsis Status: Acute (4) UTI (lower urinary tract infection) Status: Acute (5) Weakness Status: Acute Assessment Assessment Problems Medical Problems: (1) TIESHA (acute kidney injury) Status: Acute (2) Multiple thyroid nodules Status: Chronic (3) Sepsis Status: Acute (4) UTI (lower urinary tract infection) Status: Acute (5) Weakness Status: Acute Assessment/Plan UTI in an elderly and renal transplant pt Renal transplant patient on immunosuppressants SNU resident Full code Generalized weakness-high fall risk Multiple thyroid nodules-check TSH T3-T4 and ultrasound given she came in with generalized weakness and these multiple thyroid nodules Sepsis with leukocytosis 17 with no organ dysfcn [place] I creatinine 1.7 in the renal transplant patient History CABG Old CVA Plan :Omnicef for utix7 days. urine c/s pending. wbc 8, cr 1.4,base line sono kidneys today d/c back to [place] today Plan Plan of Care Problems Medical Problems: (1) TIESHA (acute kidney injury) Status: Acute (2) Multiple thyroid nodules Status: Chronic (3) Sepsis Status: Acute (4) UTI (lower urinary tract infection) Status: Acute (5) Weakness Status: Acute Comment Review of Relevant I have reviewed the following items warner (where applicable) has been applied. Labs Laboratory Tests Test 04/01/19 11:51 04/01/19 17:13 04/01/19 20:35 04/02/19 03:20 Glucose (Fingerstick) 84 mg/dL (70-99) 119 mg/dL (70-99) 139 mg/dL (70-99) White Blood Count 6.9 x10^3/uL (4.0-11.0) Red Blood Count 3.38 x10^6/uL (3.50-5.40) Hemoglobin 8.9 g/dL (12.0-15.5) Hematocrit 27.8 % (36.0-47.0) Mean Corpuscular Volume 82 fL (79-100) Mean Corpuscular Hemoglobin 26 pg (25-35) Mean Corpuscular Hemoglobin Concent 32 g/dL (31-37) Red Cell Distribution Width 16.0 % (11.5-14.5) Platelet Count 212 x10^3/uL (140-400) Neutrophils (%) (Auto) 62 % (31-73) Lymphocytes (%) (Auto) 24 % (24-48) Monocytes (%) (Auto) 11 % (0-9) Eosinophils (%) (Auto) 3 % (0-3) Basophils (%) (Auto) 0 % (0-3) Neutrophils # (Auto) 4.3 x10^3/uL (1.8-7.7) Lymphocytes # (Auto) 1.6 x10^3/uL (1.0-4.8) Monocytes # (Auto) 0.8 x10^3/uL (0.0-1.1) Eosinophils # (Auto) 0.2 x10^3/uL (0.0-0.7) Basophils # (Auto) 0.0 x10^3/uL (0.0-0.2) Sodium Level 146 mmol/L (136-145) Potassium Level 4.0 mmol/L (3.5-5.1) Chloride Level 114 mmol/L (98-107) Carbon Dioxide Level 20 mmol/L (21-32) Anion Gap 12 (6-14) Blood Urea Nitrogen 29 mg/dL (7-20) Creatinine 1.4 mg/dL (0.6-1.0) Estimated GFR (Cockcroft-Gault) 45.7 Glucose Level 152 mg/dL (70-99) Calcium Level 9.6 mg/dL (8.5-10.1) Test 04/02/19 08:31 Glucose (Fingerstick) 164 mg/dL (70-99) Microbiology 03/30/19 Blood Culture - Preliminary, Resulted NO GROWTH AFTER 2 DAYS Medications Current Medications Cefdinir (Omnicef) 300 mg BID PO Last administered on 04/01/19at 21:18; Start 04/01/19 at 12:00 Vitals/I & O Vital Sign - Last 24 Hours 04/01/19 04/01/19 04/01/19 04/01/19 11:00 12:28 15:00 17:11 Temp 98.2 98.2 98.2 98.2 Pulse 73 73 74 73 Resp 12 12 B/P (MAP) 126/57 (80) 126/57 140/63 (88) 126/57 Pulse Ox 95 95 O2 Delivery Room Air Room Air 04/01/19 04/01/19 04/01/19 04/01/19 19:12 20:00 21:18 23:46 Temp 98.0 98.3 98.0 98.3 Pulse 71 71 82 Resp 20 16 B/P (MAP) 141/54 (83) 141/54 149/46 (80) Pulse Ox 98 95 O2 Delivery Room Air Room Air Room Air 04/02/19 03:20 Temp 98.3 98.3 Pulse 77 Resp 16 B/P (MAP) 159/58 (91) Pulse Ox 97 O2 Delivery Room Air Intake and Output 04/01/19 04/01/19 04/02/19 15:00 23:00 07:00 Intake Total 640 ml 170 ml 0 ml Balance 640 ml 170 ml 0 ml AUGUSTO BRUNER MD Apr 02, 2019 09:31
--- NOTE | 2019-04-02 09:34 | SNU/HH DC ---
DISCHARGE ORDERS DISCHARGE INFORMATION: FINAL DIAGNOSIS Problems Medical Problems: (1) TIESHA (acute kidney injury) Status: Acute (2) Multiple thyroid nodules Status: Chronic (3) Sepsis Status: Acute (4) UTI (lower urinary tract infection) Status: Acute (5) Weakness Status: Acute CONDITION ON DISCHARGE: Stable CODE STATUS: Code Status: Full CARE HOME: SNF STAY <30 DAYS: Yes HOSPICE: HOSPICE: No POST DISCHARGE ORDERS: ACTIVITY ORDERS: Resume previous activity, Activity as tolerated WEIGHT BEARING STATUS: Partial weight bearing DIET AFTER DISCHARGE: ADA WOUND/INCISION CARE: Change dressing, Reinforce dressing PRN CHECKS AFTER DISCHARGE: CHECKS AFTER DISCHARGE: Check blood sugar, ac/hs FOLLOW-UP: LAB ORDERS FOR FOLLOW-UP: cbc.cmp weekly for 4 weeks TREATMENT/EQUIPMENT ORDERS: ADAPTIVE EQUIPMENT NEEDED: Wheelchair Physical Therapy For: Evalulation/Treatment DISCHARGE MEDICATIONS: Home Meds Active Scripts Insulin Lispro (HUMALOG) 100 Unit/1 Ml Cartridge, 10 UNIT SQ TIDAC for diabetes for 30 Days, EACH Prov:AUGUSTO BRUNER MD 04/01/19 Cefdinir (CEFDINIR) 300 Mg Capsule, 300 MG PO BID for uti for 7 Days, #14 CAP Prov:AUGUSTO BRUNER MD 04/01/19 Fluconazole (DIFLUCAN) 100 Mg Tablet, 200 MG PO DAILY, #30 Prov:AUGUSTO BRUNER MD 04/30/16 Reported Medications Hydralazine Hcl (HYDRALAZINE HCL) 50 Mg Tablet, 1 TAB PO TID, #90 TAB 5 Refills 01/09/18 Guaifenesin (GUAIFENESIN) 100 Mg/5 Ml Liquid, 100 MG PO, LIQUID 01/09/18 Bisacodyl (DULCOLAX) 5 Mg Tablet.dr, 4 TAB PO DAILY, #4 TAB 01/09/18 Ferrous Sulfate (FERROUS SULFATE) 325 Mg Tablet, 1 TAB PO DAILY, #30 TAB 3 Refills 12/19/17 Hydrocodone/Acetaminophen (Lortab 7.5-325 mg Tablet) 1 Each Tablet, 1 TAB PO PRN Q4HRS PRN for PAIN, TAB 0 Refills 09/13/16 Tacrolimus (PROGRAF) 1 Mg Capsule, 0.5 MG PO HS for antirejection medication 03/22/16 Insulin Detemir (LEVEMIR) 100 Unit/1 Ml Vial, 40 UNIT SQ QHS for dm, VIAL 02/25/16 Lisinopril (LISINOPRIL) 10 Mg Tablet, 1 TAB PO DAILY for htn, #30 TAB 5 Refills 02/25/16 Alprazolam (XANAX) 0.25 Mg Tablet, 0.25 MG PO PRN BID PRN for ANXIETY / AGITATION, TAB 0 Refills 02/25/16 Folic Acid/Vitamin B Comp W-C (NEPHRO-SUSANA TABLET) 0.8 Mg Tablet, 1 TAB PO DAILY for supplement, #30 TAB 5 Refills 02/25/16 Mycophenolate Sodium (MYFORTIC) 180 Mg Tablet.dr, 180 MG PO BID for anti rejection 02/25/16 Carvedilol (COREG ) 6.25 Mg Tablet, 12.5 MG PO BIDWMEALS for blood pressure, TAB 03/08/15 Atorvastatin Calcium (ATORVASTATIN CALCIUM) 40 Mg Tablet, 2 TAB PO QHS for high cholesterol, #90 TAB 3 Refills 03/08/15 Prednisone (PREDNISONE) 5 Mg Tablet, 5 MG PO DAILY for steroid 01/17/14 Metoclopramide Hcl (METOCLOPRAMIDE HCL) 5 Mg Tablet, 5 MG PO TIDAC for nausea 01/17/14 Levetiracetam (LEVETIRACETAM) 500 Mg Tablet, 500 MG PO BID for seizures 01/17/14 Aspirin (ASPIRIN) 325 Mg Tablet, 325 MG PO DAILY for blood thinner 01/17/14 Pantoprazole Sodium (PROTONIX ) 40 Mg Tablet.dr, 40 MG PO DAILY for acid reflux 08/20/13 Discontinued Reported Medications Furosemide (LASIX) 40 Mg Tablet, 1 TAB PO DAILY, #90 TAB 1 Refill 09/13/16 Insulin Aspart (NOVOLOG) 100 Unit/1 Ml Cartridge, 6 UNIT SQ TIDWMEALS for diabetes 01/17/14 Discontinued Scripts [cefazolin] No Conflict Check, 2 GM IV Q8HRS for 40 Days Prov:AUGUSTO BRUNER MD 11/07/18 AUGUSTO BRUNER MD Apr 02, 2019 09:33
[2019-04-02] MEDS: CARVEDILOL 12.5 MG TABLET. PO SCH (10:18)
[2019-04-02] MEDS: levETIRAcetam 500 MG TABLET PO SCH (10:18)
[2019-04-02] MEDS: METOCLOPRAMIDE 5 MG TABLET. PO SCH ×2 (10:18→11:30)
[2019-04-02] MEDS: FOLIC/VIT B COMP W-C (RENAL) TABLET. PO SCH (10:18)
[2019-04-02] MEDS: PANTOPRAZOLE 40 MG TABLET.DR. PO SCH (10:18)
[2019-04-02] MEDS: FERROUS SULFATE 325 MG TABLET. PO SCH (10:18)
[2019-04-02] MEDS: CEFDINIR 300 MG CAPSULE PO SCH (10:18)
[2019-04-02] MEDS: MYCOPHENOLATE ACID 180 MG TABLET.DR. PO SCH (10:19)
[2019-04-02] MEDS: ASPIRIN 325 MG TABLET PO SCH (10:19)
[2019-04-02] MEDS: FLUCONAZOLE 100 MG TABLET. PO SCH (10:19)
--- NOTE | 2019-04-02 10:23 | PDOC ---
SUBJECTIVE ROS Stable OBJECTIVE Vital Signs Vital Signs Date Time Temp Pulse Resp B/P (MAP) Pulse Ox O2 Delivery O2 Flow Rate FiO2 04/02/19 03:20 98.3 77 16 159/58 (91) 97 Room Air 98.3 I & 0 Intake and Output 04/02/19 06:59 Intake Total 810 ml Balance 810 ml Intake Oral 410 ml IV Total 400 ml # Voids 3 # Bowel Movements 1 PHYSICAL EXAM Physical Exam General: NAD HEENT: OM moist Lungs: Clear to auscultation, Heart: S1S2, RRR, Abdomen: Soft, No renal tenderness Extremities: No edema Skin: No rashes Neuro: Grossly normal - No Mclaughlin DIAGNOSIS/ASSESSMENT Assessment & Plan TIESHA- 2/2 UTI Improved to baseline Renal Transplant- Follows with Dr. Quinn at [facility] [place] On Cellcept and Tacrolimus, continue home dose Hypernatremia- mild Increase PO water intake UTI- On Abx CKD stage 3- Stable, baseline Cr 1.4-1.7 Intermittent Tiesha DM - as per primary HTN- Antihypertensive COMMENT/RELEVANT DATA Meds Current Medications Medications (Trade) Dose Ordered Sig/Te Start Time Stop Time Status Last Admin Dose Admin Acetaminophen (Tylenol) 650 mg PRN Q4HRS PRN 03/30/19 20:15 03/31/19 20:14 DC Acetaminophen/ Hydrocodone Bitart (Lortab 7.5/325) 1 tab PRN Q4HRS PRN 03/31/19 09:00 Alprazolam (Xanax) 0.25 mg PRN BID PRN 03/31/19 09:00 Aspirin (Gurwinder Aspirin) 325 mg DAILY 03/31/19 09:00 04/01/19 08:27 325 MG Atorvastatin Calcium (Lipitor) 80 mg QHS 03/31/19 21:00 04/01/19 21:18 80 MG Bisacodyl (Dulcolax Tab) 20 mg DAILY 03/31/19 09:00 04/01/19 17:17 DC 04/01/19 08:27 20 MG Carvedilol (Coreg) 12.5 mg BIDWMEALS 03/31/19 09:00 04/01/19 17:11 12.5 MG Cefdinir (Omnicef) 300 mg BID 04/01/19 12:00 04/01/19 21:18 300 MG Ceftriaxone Sodium (Rocephin) 1 gm Q24H 03/31/19 10:00 04/01/19 11:38 DC 04/01/19 09:10 1 GM Dextrose 250 ml PRN Q15MIN PRN 03/31/19 09:00 Dextrose (Dextrose 50%-Water Syringe) 12.5 gm PRN Q15MIN PRN 03/31/19 09:00 Ferrous Sulfate (Feosol) 325 mg DAILY 03/31/19 09:00 04/01/19 08:34 325 MG Fluconazole (Diflucan) 200 mg DAILY 03/31/19 09:00 04/01/19 08:28 200 MG Guaifenesin (Robitussin) 100 mg PRN QID PRN 03/31/19 09:00 Hydralazine HCl (Apresoline) 50 mg TID 03/31/19 09:00 04/01/19 21:18 50 MG Insulin Glargine (Lantus) 40 units QHS 03/31/19 21:00 04/01/19 21:24 40 UNITS Insulin Human Lispro (HumaLOG) 0-9 UNITS TIDWMEALS 03/31/19 12:00 03/31/19 11:54 7 UNITS Levetiracetam (Keppra) 500 mg BID 03/31/19 09:00 04/01/19 21:18 500 MG Loperamide HCl (Imodium) 2 mg PRN Q15MIN PRN 03/31/19 21:45 03/31/19 22:30 2 MG Metoclopramide HCl (Reglan) 5 mg TIDAC 03/31/19 11:30 04/01/19 17:11 5 MG Mycophenolate Sodium (Myfortic) 180 mg BID 03/31/19 09:00 04/01/19 21:18 180 MG Non-Formulary Medication (Mycophenolate Sodium (Myfortic)) 180 mg BID 03/31/19 09:00 UNV Ondansetron HCl (Zofran) 4 mg PRN Q6HRS PRN 03/31/19 09:00 Pantoprazole Sodium (Protonix) 40 mg DAILYAC 03/31/19 09:00 04/01/19 08:28 40 MG Piperacillin Sod/ Tazobactam Sod 4.5 gm/Sodium Chloride 100 ml @ 200 mls/hr 1X ONCE 03/30/19 18:30 03/30/19 18:59 DC 03/30/19 19:50 200 MLS/HR Sodium Chloride 1,000 ml @ 100 mls/hr Q10H 03/31/19 10:00 04/01/19 11:38 DC 03/31/19 17:20 100 MLS/HR Tacrolimus (Prograf) 0.5 mg QHS 03/31/19 21:00 04/01/19 21:18 0.5 MG Temazepam (Restoril) 7.5 mg PRN QHS PRN 03/31/19 09:00 Vitamin B Complex/ Vitamin C (Vicki-Stacey) 1 tab DAILY 03/31/19 09:00 04/01/19 08:28 1 TAB Lab Laboratory Tests Test 04/01/19 11:51 04/01/19 17:13 04/01/19 20:35 04/02/19 03:20 Glucose (Fingerstick) 84 mg/dL (70-99) 119 mg/dL (70-99) 139 mg/dL (70-99) White Blood Count 6.9 x10^3/uL (4.0-11.0) Red Blood Count 3.38 x10^6/uL (3.50-5.40) Hemoglobin 8.9 g/dL (12.0-15.5) Hematocrit 27.8 % (36.0-47.0) Mean Corpuscular Volume 82 fL (79-100) Mean Corpuscular Hemoglobin 26 pg (25-35) Mean Corpuscular Hemoglobin Concent 32 g/dL (31-37) Red Cell Distribution Width 16.0 % (11.5-14.5) Platelet Count 212 x10^3/uL (140-400) Neutrophils (%) (Auto) 62 % (31-73) Lymphocytes (%) (Auto) 24 % (24-48) Monocytes (%) (Auto) 11 % (0-9) Eosinophils (%) (Auto) 3 % (0-3) Basophils (%) (Auto) 0 % (0-3) Neutrophils # (Auto) 4.3 x10^3/uL (1.8-7.7) Lymphocytes # (Auto) 1.6 x10^3/uL (1.0-4.8) Monocytes # (Auto) 0.8 x10^3/uL (0.0-1.1) Eosinophils # (Auto) 0.2 x10^3/uL (0.0-0.7) Basophils # (Auto) 0.0 x10^3/uL (0.0-0.2) Sodium Level 146 mmol/L (136-145) Potassium Level 4.0 mmol/L (3.5-5.1) Chloride Level 114 mmol/L (98-107) Carbon Dioxide Level 20 mmol/L (21-32) Anion Gap 12 (6-14) Blood Urea Nitrogen 29 mg/dL (7-20) Creatinine 1.4 mg/dL (0.6-1.0) Estimated GFR (Cockcroft-Gault) 45.7 Glucose Level 152 mg/dL (70-99) Calcium Level 9.6 mg/dL (8.5-10.1) Test 04/02/19 08:31 Glucose (Fingerstick) 164 mg/dL (70-99) Results All relevant outside records, renal labs, imaging studies, telemetry/EKG's were reviewed. CASS HUITRON MD Apr 02, 2019 10:23
[2019-04-02] MEDS: INSULIN LISPRO 300 UNITS/3 ML INSULN.PEN. SQ SCH ×4 (10:24→12:00)
[2019-04-02 11:00] VITALS: BP 139/73
--- NOTE | 2019-04-02 12:00 | NUR ---
SW following pt. Orders faxed to [facility] and pt will transport via facility arranged w/c van at 1330. Pt's daughter, Romy, , and Granddaughter, Kimberlee notified of plan. Discussed with RN.
[2019-04-02 13:03] VITALS: BP 159/58
--- NOTE | 2019-04-02 14:25 | NUR ---
Discharge Note: DIANA WATERS [address] [place] [address] Discharge instructions and discharge home medications reviewed with Other facility and a copy given. All questions have been answered and understanding verbalized. The following instructions and handouts were given: Report called to Aleah at [facility] post acute. Diet, activity, medication list and follow up instructions provided to facility. Discontinued lines and drains:No IV present. [facility]
--- NOTE | 2019-04-02 16:08 | RAD ---
EXAM: RENAL/RETROPERITONEAL ULTRASOUND. HISTORY: Renal failure, urinary tract infection, renal transplant. COMPARISON: 12/22/2017. FINDINGS: Ultrasound of the kidneys, bladder and retroperitoneum was performed. The right kidney measures 6.7 cm. Cortical echogenicity is increased. A hyperechoic mass arising from the interpolar region measures 2.5 x 2.9 cm. No internal flow is demonstrated. A cyst more inferiorly measures 1.2 cm. There is no hydronephrosis. The left kidney measures 7.6 cm. Cortical thickness and echogenicity are preserved. There is no hydronephrosis. A transplant kidney in the right lower quadrant measures 11.8 x 4.8 x 4.6 cm. Cortical echogenicity and thickness are preserved. There is no hydronephrosis. The resistive index is increased at 0.81. Images of the bladder reveal no gross abnormality. IMPRESSION: 1. Stable 2.9 cm echogenic mass in the right interpolar region. 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 Correlate for a known diagnosis to further exclude renal cell carcinoma. 2. Atrophic [place] kidneys. 3. Increased resistive index within the right lower quadrant transplant kidney suggesting intrinsic renal disease. Electronically signed by: Brit Park MD (04/02/2019 4:05 PM) [id number]
--- NOTE | 2019-04-03 15:15 | PDOC ---
Provider Note Provider Note Discharge summary dictated,#[id number]. AUGUSTO BRUNER MD Apr 03, 2019 15:15
--- NOTE | 2019-04-03 22:14 | DS ---
DATE OF DISCHARGE: 04/02/2019 REASON FOR ADMISSION TO THE HOSPITAL: Urinary tract infection, weakness, acute on chronic kidney disease. CONSULTATIONS: Dr. Mao. PROCEDURES DONE: 1. Ultrasound of the kidneys. 2. CT head. 3. Ultrasound of the neck. COMPLICATIONS: None. HOSPITAL COURSE: The patient is a 63-year-old female who has a kidney transplant and she also has history of previous stroke in a fpc. She has developed weakness, confusion, brought to the hospital, was found to have acute urinary tract infection. The patient also had elevated white count of 17,000. Urine shows more than 40 wbc's, moderate leukocyte esterase, was given IV Rocephin. Her BUN was 50, creatinine 1.7 with IV fluids. BUN came down to 29, creatinine 1.4, which is baseline. A1c was 8.9. Thyroid was normal. She had a sonogram of the neck, which showed thyroid nodules, possible multinodular goiter. On the whole, the patient's condition improved. She is feeling better. She was discharged on oral antibiotics. Unfortunately, urine culture was not sent. Blood culture was negative. The patient continued on Omnicef twice a day for 7 days. FINAL DIAGNOSES: 1. Acute urinary tract infection. 2. Complicated kidneys. The patient has a kidney transplant. 3. Immunosuppression. The patient is on immunosuppressants because of kidney transplant. 4. Insulin-dependent diabetes. 5. Smrcb-rb-atnlubz kidney disease, improved with hydration. 6. Chronic kidney disease, stage 3. 7. Insulin-dependent diabetes. 8. History of bypass surgery, stable. 9. History of old cerebrovascular accident, cognitive defects. DISPOSITION: Home. DISCHARGE MEDICATIONS: Antibiotics for 7 days, Omnicef b.i.d. Waiting for urine final culture reports from the lab. AUGUSTO BRUNER MD DR: DENISE/jeanie JOB#: [id number] / [id number]
== END 2019-04-02 13:40 | DRG 871 ==
LOC: ER 17:44 → 6 SOUTH 20:05
PROVIDERS: ADMIT Internal Medicine; ATTEND Internal Medicine
DX: A41.9 Sepsis, unspecified organism (principal); N17.0 Acute kidney failure with tubular necrosis; N17.9 Acute kidney failure, unspecified; N39.0 Urinary tract infection, site not specified; I13.0 Hypertensive heart and chronic kidney disease with heart failure and stage 1 through stage 4 chronic kidney disease, or unspecified chronic kidney disease; T86.19 Other complication of kidney transplant; I25.10 Atherosclerotic heart disease of native coronary artery without angina pectoris; I50.9 Heart failure, unspecified; E78.00 Pure hypercholesterolemia, unspecified; G89.29 Other chronic pain; M19.90 Unspecified osteoarthritis, unspecified site; E78.5 Hyperlipidemia, unspecified; G40.909 Epilepsy, unspecified, not intractable, without status epilepticus; J44.9 Chronic obstructive pulmonary disease, unspecified; E11.22 Type 2 diabetes mellitus with diabetic chronic kidney disease; Y83.0 Surgical operation with transplant of whole organ as the cause of abnormal reaction of the patient, or of later complication, without mention of misadventure at the time of the procedure; E04.2 Nontoxic multinodular goiter; N18.3 Chronic kidney disease, stage 3 (moderate); Z95.1 Presence of aortocoronary bypass graft; Z90.710 Acquired absence of both cervix and uterus; Z91.048 Other nonmedicinal substance allergy status; Z79.4 Long term (current) use of insulin; Z83.3 Family history of diabetes mellitus; Z86.73 Personal history of transient ischemic attack (TIA), and cerebral infarction without residual deficits; Z91.81 History of falling; Z68.28 Body mass index [BMI] 28.0-28.9, adult; Y92.89 Other specified places as the place of occurrence of the external cause; Z90.49 Acquired absence of other specified parts of digestive tract; Z82.49 Family history of ischemic heart disease and other diseases of the circulatory system
CPT/HCPCS: 36415; 70450; 71045; 72125; 76536; 76770; 80048; 80053; 81001; 82140; 82553; 82962; 83036; 83605; 83735; 84443; 84484; 85007; 85025; 85610; 85730; 87040; 87086; 87186; 87641; 93005; 96365; J0696; J1815; J2543; J7030; J7507; J8597; 99285-25; G0378

== ENCOUNTER 2019-09-25 08:47 | Inpatient (IN) | payer MEDICARE, MEDICAID ==
[~2019-09-25] VITALS: Ht 161.3 cm; Wt 69.9 kg
[~2019-09-25 08:47] MED LIST changes: +CEFD300C PO; +INSU100C SQ
--- NOTE | 2019-09-25 09:27 | PHYS DOC ---
Past Medical History Past Medical History: Anemia, CAD, CHF, Diabetes-Type II, High Cholesterol, Hypertension, MRSA, Renal Failure, Seizure, Other Additional Past Medical Histor: encephalopathy, chronic pain, epilepsy Past Surgical History: Coronary Bypass Surgery, Hysterectomy, Other Additional Past Surgical Histo: kidney transplant,foot surgery,AV fistula placement and removal Alcohol Use: None Drug Use: None Adult General Chief Complaint Chief Complaint: WOUND CHECK HPI HPI Patient is a 64 year old female with history of diabetes type 2, hypertension, renal failure, PVD, amputation to the left first and second toes who presents to the ED today to be evaluated for a wound she's had on the left third toe for "a long time". Patient reports she currently resides in a fpc and the doctor in the fpc felt the wound is not healing as good as it should. She denies any complaints. Review of Systems Review of Systems Constitutional: Denies fever or chills [] Eyes: Denies change in visual acuity, redness, or eye pain [] HENT: Denies nasal congestion or sore throat [] Respiratory: Denies cough or shortness of breath [] Cardiovascular: No additional information not addressed in HPI [] GI: Denies abdominal pain, nausea, vomiting, bloody stools or diarrhea [] : Denies dysuria or hematuria [] Musculoskeletal: Denies back pain or joint pain [] Integument: Reports wound to the left third toe. Neurologic: Denies headache, focal weakness or sensory changes [] All other systems were reviewed and found to be within normal limits, except as documented in this note. Current Medications Current Medications Current Medications Medications (Trade) Dose Ordered Sig/Te Start Time Stop Time Status Last Admin Dose Admin Piperacillin Sod/ Tazobactam Sod 3.375 gm/Sodium Chloride 50 ml @ 100 mls/hr 1X ONCE 09/25/19 12:15 09/25/19 12:44 DC 09/25/19 12:33 100 MLS/HR Allergies Allergies Allergies Coded Allergies Type Severity Reaction Last Updated Verified adhesive tape Allergy Intermediate Hives 11/02/18 Yes I S O L A T I O N *CONTACT* Allergy Unknown 01/09/18 Yes No Known Medication Allergies Allergy Unknown 01/09/18 Yes Physical Exam Physical Exam Constitutional: Well developed, well nourished, no acute distress, non-toxic appearance. [] HENT: Normocephalic, atraumatic, bilateral external ears normal, oropharynx moist, no oral exudates, nose normal. [] Eyes: PERRLA, EOMI, conjunctiva normal, no discharge. [] Neck: Normal range of motion, no tenderness, supple, no stridor. [] Cardiovascular:Heart rate regular rhythm, no murmur [] Lungs & Thorax: Bilateral breath sounds clear to auscultation [] Abdomen: Bowel sounds normal, soft, no tenderness, no masses, no pulsatile masses. [] Skin: Warm, dry, missing left first and second toes. The tip of the third toe has crusty/scabbed up nonerythematous skin. Old healed surgical incision noted on the left lateral lower extremity. +1 left pedal pulse. Back: No tenderness, no CVA tenderness. [] Extremities: No tenderness, no cyanosis, no clubbing, ROM intact, no edema. [] Neurologic: Alert and oriented X 3, normal motor function, normal sensory function, no focal deficits noted. Chronic slurred speech. Psychologic: Affect normal, judgement normal, mood normal. [] Current Patient Data Vital Signs Vital Signs Date Time Temp Pulse Resp B/P (MAP) Pulse Ox O2 Delivery O2 Flow Rate FiO2 09/25/19 09:05 97.7 74 16 201/78 (119) 100 Room Air 97.7 Lab Values Laboratory Tests Test 09/25/19 11:20 White Blood Count 6.2 x10^3/uL (4.0-11.0) Red Blood Count 4.22 x10^6/uL (3.50-5.40) Hemoglobin 11.0 g/dL (12.0-15.5) L Hematocrit 34.7 % (36.0-47.0) L Mean Corpuscular Volume 82 fL (79-100) Mean Corpuscular Hemoglobin 26 pg (25-35) Mean Corpuscular Hemoglobin Concent 32 g/dL (31-37) Red Cell Distribution Width 16.8 % (11.5-14.5) H Platelet Count 242 x10^3/uL (140-400) Neutrophils (%) (Auto) 63 % (31-73) Lymphocytes (%) (Auto) 25 % (24-48) Monocytes (%) (Auto) 8 % (0-9) Eosinophils (%) (Auto) 3 % (0-3) Basophils (%) (Auto) 1 % (0-3) Neutrophils # (Auto) 3.9 x10^3/uL (1.8-7.7) Lymphocytes # (Auto) 1.5 x10^3/uL (1.0-4.8) Monocytes # (Auto) 0.5 x10^3/uL (0.0-1.1) Eosinophils # (Auto) 0.2 x10^3/uL (0.0-0.7) Basophils # (Auto) 0.1 x10^3/uL (0.0-0.2) Erythrocyte Sedimentation Rate 22 (0-25) Prothrombin Time 13.1 SEC (11.7-14.0) Prothrombin Time INR 1.0 (0.8-1.1) Activated Partial Thromboplast Time 30 SEC (24-38) Sodium Level 142 mmol/L (136-145) Potassium Level 4.2 mmol/L (3.5-5.1) Chloride Level 106 mmol/L (98-107) Carbon Dioxide Level 24 mmol/L (21-32) Anion Gap 12 (6-14) Blood Urea Nitrogen 24 mg/dL (7-20) H Creatinine 1.2 mg/dL (0.6-1.0) H Estimated GFR (Cockcroft-Gault) 54.4 BUN/Creatinine Ratio 20 (6-20) Glucose Level 150 mg/dL (70-99) H Lactic Acid Level 0.9 mmol/L (0.4-2.0) Calcium Level 10.7 mg/dL (8.5-10.1) H Total Bilirubin 0.4 mg/dL (0.2-1.0) Aspartate Amino Transferase (AST) 18 U/L (15-37) Alanine Aminotransferase (ALT) 21 U/L (14-59) Alkaline Phosphatase 82 U/L (46-116) C-Reactive Protein, Quantitative < 0.5 mg/L (0-3.3) Total Protein 6.8 g/dL (6.4-8.2) Albumin 3.4 g/dL (3.4-5.0) Albumin/Globulin Ratio 1.0 (1.0-1.7) Procalcitonin < 0.10 ng/mL (0.00-0.10) Laboratory Tests 09/25/19 11:20 Laboratory Tests 09/25/19 11:20 EKG EKG [] Radiology/Procedures Radiology/Procedures []PROCEDURE: FOOT LEFT 3V Study: FOOT LEFT 3V Indication: Third toe wound. Comparison: 10/30/2018 Findings: Since the comparison, amputation of the distal and intermediate phalanges of the fourth toe and resection of the distal aspect of the proximal phalanx. Distal phalangeal amputation of the great toe and partial resection of the proximal phalanx as well. Redemonstrated surgical changes at the second MTP joint. Ulcerative wound at the distal aspect of the third toe. Correspondingly, bony irregularity/erosive change at the third toe distal phalangeal tuft. Normal radiographic appearance of the most proximal aspect of the third toe distal phalanx as well as the more proximal phalanges. Normal postoperative appearance of the residual phalanges at the great toe and second toe. Chronic deformity about the second MTP joint is not significantly different from the prior. Osteopenia. Vascular calcifications. Impression: 1. Ulcerative wound at the distal aspect of the third toe with corresponding bony irregularity/erosive change involving the distal aspect of the third toe distal phalanx. The radiographic appearance is suspicious for osteomyelitis. No findings to suggest osteomyelitis more proximally involving the third toe or elsewhere throughout the foot. 2. Status post esophageal amputation involving the great toe and second toe without complicating features. Additional chronic findings as above. Electronically signed by: SAMANTHA RAPHAEL MD (09/25/2019 10:25 AM) [id number] DICTATED and SIGNED BY: SAMANTHA RAPHAEL MD DATE: 09/25/19 1025 Course & Med Decision Making Course & Med Decision Making Pertinent Labs and Imaging studies reviewed. (See chart for details) This is a 64-year-old female patient presented to the ED today to be evaluated for wound she's had on the left third distal for a long time. Labs are negative for any acute findings including normal lactic, left foot x- ray noted for possible osteomyelitis the left third toe. Patient was started on antibiotics in the ED. Consulted with Dr. Pope Venous Doppler of the left lower extremity ordered Spoke with Dr. Moran who accepted patient for admission Dragon Disclaimer Dragon Disclaimer This electronic medical record was generated, in whole or in part, using a voice recognition dictation system. Departure Departure Impression: Primary Impression: Osteomyelitis of foot, left, acute Disposition: ADMITTED INPATIENT Condition: STABLE Referrals: BONNIE BAHENA MD (PCP) ART LUIS APRN Sep 25, 2019 09:27
--- NOTE | 2019-09-25 10:28 | RAD ---
Study: FOOT LEFT 3V Indication: Third toe wound. Comparison: 10/30/2018 Findings: Since the comparison, amputation of the distal and intermediate phalanges of the fourth toe and resection of the distal aspect of the proximal phalanx. Distal phalangeal amputation of the great toe and partial resection of the proximal phalanx as well. Redemonstrated surgical changes at the second MTP joint. Ulcerative wound at the distal aspect of the third toe. Correspondingly, bony irregularity/erosive change at the third toe distal phalangeal tuft. Normal radiographic appearance of the most proximal aspect of the third toe distal phalanx as well as the more proximal phalanges. Normal postoperative appearance of the residual phalanges at the great toe and second toe. Chronic deformity about the second MTP joint is not significantly different from the prior. Osteopenia. Vascular calcifications. Impression: 1. Ulcerative wound at the distal aspect of the third toe with corresponding bony irregularity/erosive change involving the distal aspect of the third toe distal phalanx. The radiographic appearance is suspicious for osteomyelitis. No findings to suggest osteomyelitis more proximally involving the third toe or elsewhere throughout the foot. 2. Status post esophageal amputation involving the great toe and second toe without complicating features. Additional chronic findings as above. Electronically signed by: SAMANTHA RAPHAEL MD (09/25/2019 10:25 AM) [id number]
[2019-09-25 11:39] LABS: BASO # 0.1 x10^3/uL (0.0-0.2); BASO % 1 % (0-3); EOS # 0.2 x10^3/uL (0.0-0.7); EOS % 3 % (0-3); HEMATOCRIT 34.7 % (36.0-47.0); LYMPH # 1.5 x10^3/uL (1.0-4.8); LYMPH % 25 % (24-48); MEAN CORPUSCULAR HEMOGLOBIN 26 pg (25-35); MEAN CORPUSCULAR HGB CONC 32 g/dL (31-37); MEAN CORPUSCULAR VOLUME 82 fL (79-100); MONO # 0.5 x10^3/uL (0.0-1.1); MONO % 8 % (0-9); NEUT # 3.9 x10^3/uL (1.8-7.7); NEUT % 63 % (31-73); PLATELET COUNT 242 x10^3/uL (140-400); RED BLOOD COUNT 4.22 x10^6/uL (3.50-5.40); RED CELL DISTRIBUTION WIDTH 16.8 % (11.5-14.5); WHITE BLOOD COUNT 6.2 x10^3/uL (4.0-11.0)
[2019-09-25 11:49] LABS: PROTHROMBIN TIME PATIENT 13.1 SEC (11.7-14.0)
[2019-09-25 11:52] LABS: CALCIUM 10.7 mg/dL (8.5-10.1); CREATININE 1.2 mg/dL (0.6-1.0); GFR 54.4; POTASSIUM 4.2 mmol/L (3.5-5.1)
[2019-09-25 11:59] LABS: ALBUMIN 3.4 g/dL (3.4-5.0); TOTAL BILIRUBIN 0.4 mg/dL (0.2-1.0); TOTAL PROTEIN 6.8 g/dL (6.4-8.2)
[2019-09-25] MEDS ORDERED: PIPERACILLIN/TAZOBACTAM 3.375 GM in IV NORMAL SALINE 50ML 50 ML IV ONE (12:15)
[2019-09-25] MEDS ORDERED: fentaNYL PF VIAL 100 MCG/2 ML VIAL IV PRN (13:30)
[2019-09-25] MEDS ORDERED: ONDANSETRON PF 4 MG/2 ML VIAL. IV PRN (13:30)
[2019-09-25] MEDS ORDERED: ACETAMINOPHEN 325 MG TABLET. PO PRN (13:30)
--- NOTE | 2019-09-25 13:38 | PDOC1 ---
History and Physical Date of Admission Date of Admission DATE: 09/25/19 TIME: 13:38 Past Medical History Past Medical History Past Medical History Past Medical History Past Medical History: Anemia, CAD, CHF, Diabetes-Type II, High Cholesterol, Hypertension, MRSA, Renal Failure, Seizure, Other Additional Past Medical Histor: encephalopathy, chronic pain, epilepsy Past Surgical History: Coronary Bypass Surgery, Hysterectomy, Other Additional Past Surgical Histo: kidney transplant,foot surgery,AV fistula placement and removal Alcohol Use: None Drug Use: None Cardiovascular: CAD, HTN, Hyperlipidemia Pulmonary: COPD, Pneumonia CENTRAL NERVOUS SYSTEM: CVA, Seizure Heme/Onc: Anemia NOS Musculoskeletal: Osteoarthritis Infectious disease: Other Renal/: Chronic renal insuff, Chronic renal failure, Other Endocrine: Diabetes Past Surgical History Past Surgical History: Appendectomy, CABG, Hysterectomy, Other Family History Family History: Diabetes, Heart Disease Social History ALCOHOL: none Drugs: None Current Problem List Problem List Problems Medical Problems: (1) Open wound of left great toe Status: Acute Current Medications Current Medications Current Medications Piperacillin Sod/ Tazobactam Sod 3.375 gm/Sodium Chloride 50 ml @ 100 mls/hr 1X ONCE IV Last administered on 09/25/19at 12:33; Start 09/25/19 at 12:15; Stop 09/25/19 at 12:44; Status DC Ondansetron HCl (Zofran) 4 mg PRN Q8HRS PRN IV NAUSEA/VOMITING; Start 09/25/19 at 13:30; Stop 09/26/19 at 13:29 Fentanyl Citrate (Fentanyl 2ml Vial) 50 mcg PRN Q1HR PRN IV PAIN; Start 09/25/19 at 13:30; Stop 09/26/19 at 13:29 Acetaminophen (Tylenol) 650 mg PRN Q4HRS PRN PO FEVER; Start 09/25/19 at 13:30; Stop 09/26/19 at 13:29 Vancomycin HCl (Vanco Per Pharmacy) 1 each PRN DAILY PRN MC SEE COMMENTS; Start 09/25/19 at 13:30 Vancomycin HCl 2 gm/Sodium Chloride 500 ml @ 250 mls/hr 1X ONCE IV ; Start 09/25/19 at 14:30; Stop 09/25/19 at 16:29 Active Scripts Active Humalog (Insulin Lispro) 100 Unit/1 Ml Cartridge 10 Unit SQ TIDAC 30 Days Cefdinir 300 Mg Capsule 300 Mg PO BID 7 Days Diflucan (Fluconazole) 100 Mg Tablet 200 Mg PO DAILY Reported Hydralazine Hcl 50 Mg Tablet 1 Tab PO TID Guaifenesin 100 Mg/5 Ml Liquid 100 Mg PO Dulcolax (Bisacodyl) 5 Mg Tablet.dr 4 Tab PO DAILY Ferrous Sulfate 325 Mg Tablet 1 Tab PO DAILY Lortab 7.5-325 mg Tablet (Hydrocodone/Acetaminophen) 1 Each Tablet 1 Tab PO PRN Q4HRS PRN Prograf (Tacrolimus) 1 Mg Capsule 0.5 Mg PO HS Levemir (Insulin Detemir) 100 Unit/1 Ml Vial 40 Unit SQ QHS Lisinopril 10 Mg Tablet 1 Tab PO DAILY Xanax (Alprazolam) 0.25 Mg Tablet 0.25 Mg PO PRN BID PRN Nephro-Stacey Tablet (Folic Acid/Vitamin B Comp W-C) 0.8 Mg Tablet 1 Tab PO DAILY Myfortic (Mycophenolate Sodium) 180 Mg Tablet. 180 Mg PO BID Coreg (Carvedilol) 6.25 Mg Tablet 12.5 Mg PO BIDWMEALS Atorvastatin Calcium 40 Mg Tablet 2 Tab PO QHS Prednisone 5 Mg Tablet 5 Mg PO DAILY Metoclopramide Hcl 5 Mg Tablet 5 Mg PO TIDAC Levetiracetam 500 Mg Tablet 500 Mg PO BID Aspirin 325 Mg Tablet 325 Mg PO DAILY Protonix (Pantoprazole Sodium) 40 Mg Tablet. 40 Mg PO DAILY Allergies Allergies: Coded Allergies: adhesive tape (Verified Allergy, Intermediate, Hives, 11/02/18) blistered skin this admit I S O L A T I O N *CONTACT* (Verified Allergy, Unknown, 01/09/18) mrsa No Known Medication Allergies (Verified Allergy, Unknown, 01/09/18) Vitals Vitals Vital Signs Date Time Temp Pulse Resp B/P (MAP) Pulse Ox O2 Delivery O2 Flow Rate FiO2 09/25/19 09:05 97.7 74 16 201/78 (119) 100 Room Air 97.7 Labs Labs Laboratory Tests Test 09/25/19 11:20 White Blood Count 6.2 x10^3/uL (4.0-11.0) Red Blood Count 4.22 x10^6/uL (3.50-5.40) Hemoglobin 11.0 g/dL (12.0-15.5) Hematocrit 34.7 % (36.0-47.0) Mean Corpuscular Volume 82 fL (79-100) Mean Corpuscular Hemoglobin 26 pg (25-35) Mean Corpuscular Hemoglobin Concent 32 g/dL (31-37) Red Cell Distribution Width 16.8 % (11.5-14.5) Platelet Count 242 x10^3/uL (140-400) Neutrophils (%) (Auto) 63 % (31-73) Lymphocytes (%) (Auto) 25 % (24-48) Monocytes (%) (Auto) 8 % (0-9) Eosinophils (%) (Auto) 3 % (0-3) Basophils (%) (Auto) 1 % (0-3) Neutrophils # (Auto) 3.9 x10^3/uL (1.8-7.7) Lymphocytes # (Auto) 1.5 x10^3/uL (1.0-4.8) Monocytes # (Auto) 0.5 x10^3/uL (0.0-1.1) Eosinophils # (Auto) 0.2 x10^3/uL (0.0-0.7) Basophils # (Auto) 0.1 x10^3/uL (0.0-0.2) Erythrocyte Sedimentation Rate 22 (0-25) Prothrombin Time 13.1 SEC (11.7-14.0) Prothromb Time International Ratio 1.0 (0.8-1.1) Activated Partial Thromboplast Time 30 SEC (24-38) Sodium Level 142 mmol/L (136-145) Potassium Level 4.2 mmol/L (3.5-5.1) Chloride Level 106 mmol/L (98-107) Carbon Dioxide Level 24 mmol/L (21-32) Anion Gap 12 (6-14) Blood Urea Nitrogen 24 mg/dL (7-20) Creatinine 1.2 mg/dL (0.6-1.0) Estimated GFR (Cockcroft-Gault) 54.4 BUN/Creatinine Ratio 20 (6-20) Glucose Level 150 mg/dL (70-99) Lactic Acid Level 0.9 mmol/L (0.4-2.0) Calcium Level 10.7 mg/dL (8.5-10.1) Total Bilirubin 0.4 mg/dL (0.2-1.0) Aspartate Amino Transf (AST/SGOT) 18 U/L (15-37) Alanine Aminotransferase (ALT/SGPT) 21 U/L (14-59) Alkaline Phosphatase 82 U/L (46-116) C-Reactive Protein, Quantitative < 0.5 mg/L (0-3.3) Total Protein 6.8 g/dL (6.4-8.2) Albumin 3.4 g/dL (3.4-5.0) Albumin/Globulin Ratio 1.0 (1.0-1.7) Procalcitonin < 0.10 ng/mL (0.00-0.10) Laboratory Tests Test 09/25/19 11:20 White Blood Count 6.2 x10^3/uL (4.0-11.0) Red Blood Count 4.22 x10^6/uL (3.50-5.40) Hemoglobin 11.0 g/dL (12.0-15.5) Hematocrit 34.7 % (36.0-47.0) Mean Corpuscular Volume 82 fL (79-100) Mean Corpuscular Hemoglobin 26 pg (25-35) Mean Corpuscular Hemoglobin Concent 32 g/dL (31-37) Red Cell Distribution Width 16.8 % (11.5-14.5) Platelet Count 242 x10^3/uL (140-400) Neutrophils (%) (Auto) 63 % (31-73) Lymphocytes (%) (Auto) 25 % (24-48) Monocytes (%) (Auto) 8 % (0-9) Eosinophils (%) (Auto) 3 % (0-3) Basophils (%) (Auto) 1 % (0-3) Neutrophils # (Auto) 3.9 x10^3/uL (1.8-7.7) Lymphocytes # (Auto) 1.5 x10^3/uL (1.0-4.8) Monocytes # (Auto) 0.5 x10^3/uL (0.0-1.1) Eosinophils # (Auto) 0.2 x10^3/uL (0.0-0.7) Basophils # (Auto) 0.1 x10^3/uL (0.0-0.2) Erythrocyte Sedimentation Rate 22 (0-25) Prothrombin Time 13.1 SEC (11.7-14.0) Prothromb Time International Ratio 1.0 (0.8-1.1) Activated Partial Thromboplast Time 30 SEC (24-38) Sodium Level 142 mmol/L (136-145) Potassium Level 4.2 mmol/L (3.5-5.1) Chloride Level 106 mmol/L (98-107) Carbon Dioxide Level 24 mmol/L (21-32) Anion Gap 12 (6-14) Blood Urea Nitrogen 24 mg/dL (7-20) Creatinine 1.2 mg/dL (0.6-1.0) Estimated GFR (Cockcroft-Gault) 54.4 BUN/Creatinine Ratio 20 (6-20) Glucose Level 150 mg/dL (70-99) Lactic Acid Level 0.9 mmol/L (0.4-2.0) Calcium Level 10.7 mg/dL (8.5-10.1) Total Bilirubin 0.4 mg/dL (0.2-1.0) Aspartate Amino Transf (AST/SGOT) 18 U/L (15-37) Alanine Aminotransferase (ALT/SGPT) 21 U/L (14-59) Alkaline Phosphatase 82 U/L (46-116) C-Reactive Protein, Quantitative < 0.5 mg/L (0-3.3) Total Protein 6.8 g/dL (6.4-8.2) Albumin 3.4 g/dL (3.4-5.0) Albumin/Globulin Ratio 1.0 (1.0-1.7) Procalcitonin < 0.10 ng/mL (0.00-0.10) VTE Prophylaxis Ordered VTE Prophylaxis Devices: No VTE Pharmacological Prophylaxi: Yes ORAL MENESES MD Sep 25, 2019 13:38
--- NOTE | 2019-09-25 13:57 | RAD ---
Left lower extremity arterial Doppler ultrasound HISTORY: Left third toe wound. TECHNIQUE: Color Doppler, grayscale and duplex analysis performed of the lower extremity arterial structures, from the common femoral artery through the runoff vessels. COMPARISON: None are available Findings: All velocity measurements are in centimeters per second. Biphasic waveforms throughout the left lower extremity arteries. No critical segmental velocity elevation to suggest high-grade stenosis. No evidence of occlusion. IMPRESSION: No sonographic evidence of occlusion or high-grade stenosis. Electronically signed by: Farhat Pascual MD (09/25/2019 1:54 PM) [facility]
[2019-09-25 14:03] VITALS: BP 131/59
[2019-09-25] MEDS ORDERED: VANCOMYCIN 2 GM in IV NORMAL SALINE 500ML BAG 500 ML IV ONE (14:30)
[2019-09-25] MEDS ORDERED: VANCOMYCIN 1 GM in IV NORMAL SALINE 250ML 250 ML IV SCH (17:00)
[2019-09-25] MEDS: VANCOMYCIN PER PHARMACY MC PRN (17:22)
--- NOTE | 2019-09-25 17:23 | NUR ---
Pharmacy Vancomycin Dosing Note S:Consulted to monitor and dose vancomycin started 09/25/19. O:DIANA WATERS is a 64 year old F with Osteomyelitis . Height: 5 feet, 5 inches Weight: 150.0 kg [place] Body Weight: 57.00 Adjusted Body Weight: 94.20 Dosing Weight: Actual Other Antibiotics: LABS: Last BUN: 24 Last Creatinine: 1.2 Creatinine Clearance: 68 mL/min Last WBC: 6.2 Last Procalcitonin: Tmax (past 24 hours): Microbiology: I/O: Drug Levels: Last level: on at Last dose given at Vancomycin Dosing: Loading Dose: 2000 mg x1 Dosing Weight: Actual Target Trough: 15-20 A: Based on: WEIGHT AND RENAL FUNCTION, VANCOMYCIN 2GM IV BOLUS, THEN P: 1. Begin Vancomycin 1750 mg IV q12h 2. Follow up Trough level on 09/27/19 at 0430 3. Pharmacy will continue to monitor, follow and adjust therapy as needed. AMBROSE BECERRA [facility], 09/25/19 0811
[2019-09-25 19:00] VITALS: BP 162/61
[2019-09-25] MEDS ORDERED: INSU100V2 SQ (20:49)
[2019-09-25] MEDS ORDERED: ACET500T68 PO (20:49)
[2019-09-25] MEDS ORDERED: INSU100V6 SQ (20:49)
[2019-09-25] MEDS ORDERED: PRED1TAB3 PO (20:49)
[2019-09-25] MEDS ORDERED: HYDR-2868 PO (20:49)
[2019-09-25] MEDS ORDERED: ASPI81TA50 PO (20:49)
[2019-09-25] MEDS ORDERED: DEXTROSE 50% 25 GM / 50ML DISP.SYRIN. IV PRN ×2 (21:15→22:00)
[2019-09-25] MEDS ORDERED: IV DEXTROSE 5% 250 ML BAG. IV PRN ×2 (21:15→22:00)
[2019-09-25] MEDS ORDERED: ACETAMINOPHEN 500 MG TABLET PO PRN (22:00)
[2019-09-25] MEDS: IV DEXTROSE 5% - 0.9 % NACL 1,000 ML IV SCH (22:09)
[2019-09-25] MEDS: hydrALAZINE 25 MG TABLET PO SCH (22:10)
[2019-09-25] MEDS: levETIRAcetam 500 MG TABLET PO SCH (22:10)
[2019-09-25] MEDS: TACROLIMUS 0.5 MG CAPSULE PO SCH (22:10)
[2019-09-25] MEDS: MYCOPHENOLATE ACID 180 MG TABLET.DR. PO SCH (22:10)
[2019-09-25] MEDS: ATORVASTATIN CALCIUM 40 MG TABLET. PO SCH (22:11)
[2019-09-25 22:46] VITALS: BP 165/110
[2019-09-26] VITALS (11 sets, daily range): BP systolic 84–206; BP diastolic 43–104
[2019-09-26] MEDS: VANCOMYCIN PER PHARMACY MC PRN (04:05)
--- NOTE | 2019-09-26 04:05 | NUR ---
Pharmacy Vancomycin Dosing Note S:Consulted to monitor and dose vancomycin started 09/25/19. O:DIANA WATERS is a 64 year old F with Osteomyelitis . Height: 5 feet, 3.5 inches Weight: 70.038047 kg [place] Body Weight: 57.00 Adjusted Body Weight: 62.20 Dosing Weight: Actual Other Antibiotics: LABS: Last BUN: 24 Last Creatinine: 1.2 Creatinine Clearance: 44 mL/min Last WBC: 6.2 Last Procalcitonin: Tmax (past 24 hours): Microbiology: I/O: Drug Levels: Last level: on at Last dose given 09/25/19 at 1700 Vancomycin Dosing: Loading Dose: 2000 mg x1 Dosing Weight: Actual Target Trough: 15-20 A: Based on: UPDATED WT AND CRCL, KIDNEY TRANSPLANT P: 1. Begin Vancomycin 1000 mg IV q24h 2. Follow up Trough level on 09/27/19 at 1630 3. Pharmacy will continue to monitor, follow and adjust therapy as needed. LICHA ZHONG RPH, 09/26/19 0405 Signed: 09/26/19 at 0406 by LICHA ZHONG RPH PHA
[2019-09-26 04:47] LABS: BASO # 0.1 x10^3/uL (0.0-0.2); BASO % 1 % (0-3); EOS # 0.1 x10^3/uL (0.0-0.7); EOS % 3 % (0-3); HEMATOCRIT 35.3 % (36.0-47.0); HEMOGLOBIN 11.1 g/dL (12.0-15.5); LYMPH # 1.6 x10^3/uL (1.0-4.8); LYMPH % 29 % (24-48); MEAN CORPUSCULAR HEMOGLOBIN 26 pg (25-35); MEAN CORPUSCULAR HGB CONC 32 g/dL (31-37); MEAN CORPUSCULAR VOLUME 83 fL (79-100); MONO # 0.5 x10^3/uL (0.0-1.1); MONO % 10 % (0-9); NEUT # 3.2 x10^3/uL (1.8-7.7); NEUT % 58 % (31-73); PLATELET COUNT 204 x10^3/uL (140-400); RED BLOOD COUNT 4.25 x10^6/uL (3.50-5.40); RED CELL DISTRIBUTION WIDTH 17.1 % (11.5-14.5); WHITE BLOOD COUNT 5.5 x10^3/uL (4.0-11.0)
[2019-09-26] MEDS ORDERED: VANCOMYCIN 1.75 GM in IV NORMAL SALINE 500ML BAG 500 ML IV SCH (05:00)
--- NOTE | 2019-09-26 05:33 | EKG ---
[facility] [address] [place] [address] Test Date: 2019-09-26 Test Time: 05:12:42 Pat Name: DIANA WATERS Department: Room: 586 1 Gender: F Naturopath: AICHA : 1955 Requested By: AUGUSTO BRUNER Order Number: [id number] Reading MD: Measurements Intervals [place] Rate: 79 P: 59 CT: 152 QRS: 28 QRSD: 108 T: 66 QT: 370 QTc: 425 Interpretive Statements SINUS RHYTHM QRS(T) CONTOUR ABNORMALITY CONSIDER ANTEROSEPTAL MYOCARDIAL DAMAGE CONSISTENT WITH INFERIOR INFARCT PROBABLY OLD T ABNORMALITY IN HIGH LATERAL LEADS ABNORMAL ECG RI6.01 Compared to ECG 03/30/2019 18:42:26 Myocardial infarct finding now present T-wave abnormality now present
[2019-09-26] MEDS: INSULIN LISPRO 300 UNITS/3 ML VIAL. SQ SCH ×3 (08:00→17:49)
[2019-09-26] MEDS ORDERED: INSULIN LISPRO 300 UNITS/3 ML VIAL. SQ SCH (08:00)
--- NOTE | 2019-09-26 08:06 | RAD ---
EXAM: Chest, single view. HISTORY: Preoperative evaluation. Pain. COMPARISON: 03/30/2019. FINDINGS: A frontal view of the chest is obtained. There is no infiltrate, pleural effusion or pneumothorax. The heart is normal in size. There is evidence of prior CABG. There is stable circumscribed nodule overlying the lateral right mid thorax measuring approximately 2.4 cm. IMPRESSION: 1. No acute pulmonary finding. 2. Stable nodular opacity overlying the right mid thorax. This is better characterized on the prior CT dated 10/31/2018. There are additional nodules on the prior CT which are not well seen radiographically. Electronically signed by: Litzy Jennings MD (09/26/2019 8:03 AM) [facility]
[2019-09-26] MEDS: LISINOPRIL 10 MG TABLET PO SCH (08:11)
[2019-09-26] MEDS: hydrALAZINE 25 MG TABLET PO SCH ×3 (08:11→21:30)
[2019-09-26] MEDS ORDERED: IV RINGERS,LACTATED 1000ML 1,000 ML IV SCH (08:41)
--- NOTE | 2019-09-26 08:41 | NUR ---
SW following. Discussed with RN, pt having surgery today. 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 YINA will continue to follow.
[2019-09-26] MEDS ORDERED: HYDROmorphone 2 MG/ML VIAL IV PRN (08:45)
[2019-09-26] MEDS ORDERED: PROCHLORPERAZINE 10 MG/2 ML VIAL. IV PRN (08:45)
[2019-09-26] MEDS ORDERED: MORPHINE SULFATE 2 MG/ML VIAL. IV PRN (08:45)
--- NOTE | 2019-09-26 08:52 | PDOC2 ---
CONSULT Date of Consult Date of Consult DATE: 09/26/19 TIME: 08:49 Reason for Consult Reason for Consult: Left third toe wound Referring Physician Referring Physician: Jil Identification/Chief Complaint Chief Complaint Left toe pain Source Source: Chart review, Patient History of Present Illness Reason for Visit: Patient is a pleasant 64-year-old female with a history of a wound on her left third toe for several months. She is uncertain what exactly triggered the wound and cannot recall any trauma. 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 She tells me her left third toe hurts, it is worse in a deep into position and when she tries to walk a lot. It is been a little bit better at rest but still painful. Past Medical History Cardiovascular: CAD, HTN, Hyperlipidemia Pulmonary: COPD, Pneumonia CENTRAL NERVOUS SYSTEM: CVA, Seizure Heme/Onc: Anemia NOS Musculoskeletal: Osteoarthritis Infectious disease: Other Renal/: Chronic renal insuff, Chronic renal failure, Other Endocrine: Diabetes Past Surgical History Past Surgical History: Appendectomy, CABG, Hysterectomy, Other Family History Family History: Diabetes, Heart Disease Social History ALCOHOL: none Drugs: None Lives: Long-Term Domestic Violence: Neg Current Problem List Problem List Problems Medical Problems: (1) Open wound of left great toe Status: Acute (2) Osteomyelitis of foot, left, acute Status: Acute Current Medications Current Medications Current Medications Piperacillin Sod/ Tazobactam Sod 3.375 gm/Sodium Chloride 50 ml @ 100 mls/hr 1X ONCE IV Last administered on 09/25/19at 12:33; Start 09/25/19 at 12:15; Stop 09/25/19 at 12:44; Status DC Ondansetron HCl (Zofran) 4 mg PRN Q8HRS PRN IV NAUSEA/VOMITING; Start 09/25/19 at 13:30; Stop 09/26/19 at 13:29 Fentanyl Citrate (Fentanyl 2ml Vial) 50 mcg PRN Q1HR PRN IV PAIN; Start 09/25/19 at 13:30; Stop 09/26/19 at 13:29 Acetaminophen (Tylenol) 650 mg PRN Q4HRS PRN PO FEVER; Start 09/25/19 at 13:30; Stop 09/25/19 at 21:56; Status DC Vancomycin HCl (Vanco Per Pharmacy) 1 each PRN DAILY PRN MC SEE COMMENTS Last administered on 09/26/19at 04:05; Start 09/25/19 at 13:30 Vancomycin HCl 2 gm/Sodium Chloride 500 ml @ 250 mls/hr 1X ONCE IV Last administered on 09/25/19at 16:39; Start 09/25/19 at 14:30; Stop 09/25/19 at 16:29; Status DC Vancomycin HCl 1.75 gm/Sodium Chloride 500 ml @ 250 mls/hr Q12H IV ; Start 09/26/19 at 05:00; Status Cancel Vancomycin HCl (Vancomycin Trough Level) 1 each 1X ONCE MC ; Start 09/27/19 at 16:30; Stop 09/27/19 at 16:31 Insulin Human Lispro (HumaLOG) 0-7 UNITS TIDWMEALS SQ ; Start 09/26/19 at 08:00; Status Cancel Dextrose (Dextrose 50%-Water Syringe) 12.5 gm PRN Q15MIN PRN IV SEE COMMENTS; Start 09/25/19 at 21:15; Stop 09/25/19 at 21:56; Status DC Dextrose (Iv Dextrose 5%) 250 ml PRN Q15MIN PRN IV SEE COMMENTS; Start 09/25/19 at 21:15; Status Cancel Dextrose/Sodium Chloride 1,000 ml @ 75 mls/hr [id number] IV Last administered on 09/25/19at 22:09; Start 09/25/19 at 21:15 Acetaminophen (Tylenol) 1,000 mg PRN Q8HRS PRN PO MILD PAIN 1-3; Start 09/25/19 at 22:00 Aspirin (Ecotrin) 81 mg DAILY PO ; Start 09/26/19 at 09:00 Atorvastatin Calcium (Lipitor) 80 mg QHS PO Last administered on 09/25/19at 22:11; Start 09/25/19 at 22:00 Vitamin B Complex/ Vitamin C (Vicki-Stacey) 1 tab DAILY PO ; Start 09/26/19 at 09:00 Hydralazine HCl (Apresoline) 25 mg TID PO Last administered on 09/26/19at 08:11; Start 09/25/19 at 22:00 Levetiracetam (Keppra) 500 mg BID PO Last administered on 09/25/19at 22:10; Start 09/25/19 at 22:00 Lisinopril (Prinivil) 10 mg DAILY PO Last administered on 09/26/19at 08:11; Start 09/26/19 at 09:00 Mycophenolate Sodium (Myfortic) 180 mg BID PO Last administered on 09/25/19at 22:10; Start 09/25/19 at 22:00 Prednisone (Prednisone) 2 mg DAILY PO ; Start 09/26/19 at 09:00 Tacrolimus (Prograf) 0.5 mg BID PO Last administered on 09/25/19at 22:10; Start 09/25/19 at 22:00 Fluconazole (Diflucan) 200 mg DAILY PO ; Start 09/26/19 at 09:00 Insulin Human Lispro (HumaLOG) 0-5 UNITS TIDWMEALS SQ ; Start 09/26/19 at 08:00 Dextrose (Dextrose 50%-Water Syringe) 12.5 gm PRN Q15MIN PRN IV SEE COMMENTS; Start 09/25/19 at 22:00 Dextrose (Iv Dextrose 5%) 250 ml PRN Q15MIN PRN IV SEE COMMENTS; Start 09/25/19 at 22:00 Vancomycin HCl 1 gm/Sodium Chloride 250 ml @ 250 mls/hr Q24H IV ; Start 09/25/19 at 17:00; Status Cancel Vancomycin HCl 1 gm/Sodium Chloride 250 ml @ 250 mls/hr Q24H IV ; Start 09/26/19 at 17:00 Morphine Sulfate (Morphine Sulfate) 1 mg PRN Q10MIN PRN IV SEVERE PAIN 7-10; Start 09/26/19 at 08:45; Stop 09/27/19 at 08:44 Ringer's Solution 1,000 ml @ 30 mls/hr Q24H IV ; Start 09/26/19 at 08:41; Stop 09/26/19 at 20:40 Hydromorphone HCl (Dilaudid) 0.5 mg PRN Q10MIN PRN IV SEV PAIN, Second choice; Start 09/26/19 at 08:45; Stop 09/27/19 at 08:44 Prochlorperazine Edisylate (Compazine) 5 mg PACU PRN PRN IV NAUSEA, MRX1; St art 09/26/19 at 08:45; Stop 09/27/19 at 08:44 Active Scripts Active Diflucan (Fluconazole) 100 Mg Tablet 200 Mg PO DAILY Reported Acetaminophen 500 Mg Tablet 2 Tab PO PRN Q8HRS PRN 15 Days Prednisone 1 Mg Tablet 2 Mg PO DAILY Humalog (Insulin Lispro) 100 Unit/1 Ml Vial 8 Unit SQ BIDACLD Humalog (Insulin Lispro) 100 Unit/1 Ml Vial 4 Unit SQ [id number] Hydralazine Hcl 25 Mg Tablet 1 Tab PO TID Aspir-Low (Aspirin) 81 Mg Tablet. 1 Tab PO DAILY Prograf (Tacrolimus) 1 Mg Capsule 0.5 Mg PO BID Levemir (Insulin Detemir) 100 Unit/1 Ml Vial 17 Unit SQ QHS Hold for FSBS below 90 and call Lisinopril 10 Mg Tablet 1 Tab PO DAILY Nephro-Stacey Tablet (Folic Acid/Vitamin B Comp W-C) 0.8 Mg Tablet 1 Tab PO DAILY Myfortic (Mycophenolate Sodium) 180 Mg Tablet. 180 Mg PO BID Atorvastatin Calcium 40 Mg Tablet 2 Tab PO QHS Levetiracetam 500 Mg Tablet 500 Mg PO BID Allergies Allergies: Coded Allergies: adhesive tape (Verified Allergy, Intermediate, Hives, 11/02/18) blistered skin this admit I S O L A T I O N *CONTACT* (Verified Allergy, Unknown, 01/09/18) mrsa No Known Medication Allergies (Verified Allergy, Unknown, 01/09/18) ROS General: No: Chills, Night Sweats, Fatigue, Malaise, Appetite, Other PSYCHOLOGICAL ROS: No: Anxiety, Behavioral Disorder, Concentration difficultie, Decreased libido, Depression, Disorientation, Hallucinations, Hostility, Irritablity, Memory difficulties, Mood Swings, Obsessive thoughts, Physical abuse, Sexual abuse, Sleep disturbances, Suicidal ideation, Other Eyes: No Blurry vision, No Decreased vision, No Double vision, No Dry eyes, No Excessive tearing, No Eye Pain, No Itchy Eyes, No Loss of vision, No Photophobia, No Scotomata, No Uses contacts, No Uses glasses, No Other HEENT: No: Heacaches, Visual Changes, Hearing change, Nasal congestion, Nasal discharge, Oral lesions, Sinus pain, Sore Throat, Epistaxis, Sneezing, Snoring, Tinnitus, Vertigo, Vocal changes, Other ALLERGY AND IMMUNOLOGY: No: Hives, Insect Bite Sensitivity, Itchy/Watery Eyes, Nasal Congestion, Post Nasal Drip, Seasonal Allergies, Other Hematological and Lymphatic: No: Bleeding Problems, Blood Clots, Blood Transfusions, Brusing, Night Sweats, Pallor, Swollen Lymph Nodes, Other ENDOCRINE: No: Breast Changes, Galactorrhea, Hair Pattern Changes, Hot Flashes, Malaise/lethargy, Mood Swings, Palpitations, Polydipsia/polyuria, Skin Changes, Temperature Intolerance, Unexpected Weight Changes, Other Respiratory: No: Cough, Hemoptysis, Orthopnea, Pleuritic Pain, Shortness of breath, SOB with excertion, Sputum Changes, Stridor, Tachypnea, Wheezing, Other Cardiovascular: No Chest Pain, No Palpitations, No Orthopnea, No Paroxysmal Noc. Dyspnea, No Edema, No Lt Headedness, No Other Gastrointestinal: No Nausea, No Vomiting, No Abdominal Pain, No Diarrhea, No Constipation, No Melena, No Hematochezia, No Other Genitourinary: No Dysuria, No Frequency, No Incontinence, No Hematuria, No Retention, No Discharge, No Urgency, No Pain, No Flank Pain, No Other, No , No , No , No , No , No , No Musculoskeletal: No Gait Disturbance, No Joint Pain, No Joint Stiffness, No Joint Swelling, No Muscle Pain, No Muscular Weakness, No Pain In:, No Swelling In:, No Other Neurological: No Behavorial Changes, No Bowel/Bladder ControlChng, No Confusion, No Dizziness, No Gait Disturbance, No Headaches, No Impaired Coord/balance, No Memory Loss, No Numbness/Tingling, No Seizures, No Speech Problems, No Tremors, No Visual Changes, No Weakness, No Other Skin: No Dry Skin, No Eczema, No Hair Changes, No Lumps, No Mole Changes, No Mottling, No Nail Changes, No Pruritus, No Rash, No Skin Lesion Changes, No Other, No Acne Physical Exam General: Alert, Oriented X3 HEENT: Atraumatic, EOMI Lungs: Other (respirations are unlabored with symmetric chest rise) Heart: Regular rate Abdomen: Soft, No tenderness Extremities: No edema, Other (dorsalis pedis 1+) Neuro: Normal speech, Strength at 5/5 X4 ext, Sensation intact Psych/Mental Status: Mood NL, Other (speech is slow, but she doesn't answer and ask questions appropriately) MUSCULOSKELETAL: Other (she has prominent eschar over a wound at the tip of her third toe. The toe itself is not markedly erythematous or swollen.) Vitals VITALS Vital Signs Date Time Temp Pulse Resp B/P (MAP) Pulse Ox O2 Delivery O2 Flow Rate FiO2 09/26/19 08:11 80 178/61 09/26/19 03:00 98.3 18 97 Room Air 98.3 Labs Labs Laboratory Tests Test 09/25/19 11:20 09/26/19 04:20 09/26/19 08:12 White Blood Count 6.2 x10^3/uL (4.0-11.0) 5.5 x10^3/uL (4.0-11.0) Red Blood Count 4.22 x10^6/uL (3.50-5.40) 4.25 x10^6/uL (3.50-5.40) Hemoglobin 11.0 g/dL (12.0-15.5) 11.1 g/dL (12.0-15.5) Hematocrit 34.7 % (36.0-47.0) 35.3 % (36.0-47.0) Mean Corpuscular Volume 82 fL (79-100) 83 fL (79-100) Mean Corpuscular Hemoglobin 26 pg (25-35) 26 pg (25-35) Mean Corpuscular Hemoglobin Concent 32 g/dL (31-37) 32 g/dL (31-37) Red Cell Distribution Width 16.8 % (11.5-14.5) 17.1 % (11.5-14.5) Platelet Count 242 x10^3/uL (140-400) 204 x10^3/uL (140-400) Neutrophils (%) (Auto) 63 % (31-73) 58 % (31-73) Lymphocytes (%) (Auto) 25 % (24-48) 29 % (24-48) Monocytes (%) (Auto) 8 % (0-9) 10 % (0-9) Eosinophils (%) (Auto) 3 % (0-3) 3 % (0-3) Basophils (%) (Auto) 1 % (0-3) 1 % (0-3) Neutrophils # (Auto) 3.9 x10^3/uL (1.8-7.7) 3.2 x10^3/uL (1.8-7.7) Lymphocytes # (Auto) 1.5 x10^3/uL (1.0-4.8) 1.6 x10^3/uL (1.0-4.8) Monocytes # (Auto) 0.5 x10^3/uL (0.0-1.1) 0.5 x10^3/uL (0.0-1.1) Eosinophils # (Auto) 0.2 x10^3/uL (0.0-0.7) 0.1 x10^3/uL (0.0-0.7) Basophils # (Auto) 0.1 x10^3/uL (0.0-0.2) 0.1 x10^3/uL (0.0-0.2) Erythrocyte Sedimentation Rate 22 (0-25) Prothrombin Time 13.1 SEC (11.7-14.0) Prothromb Time International Ratio 1.0 (0.8-1.1) Activated Partial Thromboplast Time 30 SEC (24-38) Sodium Level 142 mmol/L (136-145) Potassium Level 4.2 mmol/L (3.5-5.1) Chloride Level 106 mmol/L (98-107) Carbon Dioxide Level 24 mmol/L (21-32) Anion Gap 12 (6-14) Blood Urea Nitrogen 24 mg/dL (7-20) Creatinine 1.2 mg/dL (0.6-1.0) Estimated GFR (Cockcroft-Gault) 54.4 BUN/Creatinine Ratio 20 (6-20) Glucose Level 150 mg/dL (70-99) Lactic Acid Level 0.9 mmol/L (0.4-2.0) Calcium Level 10.7 mg/dL (8.5-10.1) Total Bilirubin 0.4 mg/dL (0.2-1.0) Aspartate Amino Transf (AST/SGOT) 18 U/L (15-37) Alanine Aminotransferase (ALT/SGPT) 21 U/L (14-59) Alkaline Phosphatase 82 U/L (46-116) C-Reactive Protein, Quantitative < 0.5 mg/L (0-3.3) Total Protein 6.8 g/dL (6.4-8.2) Albumin 3.4 g/dL (3.4-5.0) Albumin/Globulin Ratio 1.0 (1.0-1.7) Procalcitonin < 0.10 ng/mL (0.00-0.10) Glucose (Fingerstick) 245 mg/dL (70-99) Laboratory Tests Test 09/25/19 11:20 09/26/19 04:20 09/26/19 08:12 White Blood Count 6.2 x10^3/uL (4.0-11.0) 5.5 x10^3/uL (4.0-11.0) Red Blood Count 4.22 x10^6/uL (3.50-5.40) 4.25 x10^6/uL (3.50-5.40) Hemoglobin 11.0 g/dL (12.0-15.5) 11.1 g/dL (12.0-15.5) Hematocrit 34.7 % (36.0-47.0) 35.3 % (36.0-47.0) Mean Corpuscular Volume 82 fL (79-100) 83 fL (79-100) Mean Corpuscular Hemoglobin 26 pg (25-35) 26 pg (25-35) Mean Corpuscular Hemoglobin Concent 32 g/dL (31-37) 32 g/dL (31-37) Red Cell Distribution Width 16.8 % (11.5-14.5) 17.1 % (11.5-14.5) Platelet Count 242 x10^3/uL (140-400) 204 x10^3/uL (140-400) Neutrophils (%) (Auto) 63 % (31-73) 58 % (31-73) Lymphocytes (%) (Auto) 25 % (24-48) 29 % (24-48) Monocytes (%) (Auto) 8 % (0-9) 10 % (0-9) Eosinophils (%) (Auto) 3 % (0-3) 3 % (0-3) Basophils (%) (Auto) 1 % (0-3) 1 % (0-3) Neutrophils # (Auto) 3.9 x10^3/uL (1.8-7.7) 3.2 x10^3/uL (1.8-7.7) Lymphocytes # (Auto) 1.5 x10^3/uL (1.0-4.8) 1.6 x10^3/uL (1.0-4.8) Monocytes # (Auto) 0.5 x10^3/uL (0.0-1.1) 0.5 x10^3/uL (0.0-1.1) Eosinophils # (Auto) 0.2 x10^3/uL (0.0-0.7) 0.1 x10^3/uL (0.0-0.7) Basophils # (Auto) 0.1 x10^3/uL (0.0-0.2) 0.1 x10^3/uL (0.0-0.2) Erythrocyte Sedimentation Rate 22 (0-25) Prothrombin Time 13.1 SEC (11.7-14.0) Prothromb Time International Ratio 1.0 (0.8-1.1) Activated Partial Thromboplast Time 30 SEC (24-38) Sodium Level 142 mmol/L (136-145) Potassium Level 4.2 mmol/L (3.5-5.1) Chloride Level 106 mmol/L (98-107) Carbon Dioxide Level 24 mmol/L (21-32) Anion Gap 12 (6-14) Blood Urea Nitrogen 24 mg/dL (7-20) Creatinine 1.2 mg/dL (0.6-1.0) Estimated GFR (Cockcroft-Gault) 54.4 BUN/Creatinine Ratio 20 (6-20) Glucose Level 150 mg/dL (70-99) Lactic Acid Level 0.9 mmol/L (0.4-2.0) Calcium Level 10.7 mg/dL (8.5-10.1) Total Bilirubin 0.4 mg/dL (0.2-1.0) Aspartate Amino Transf (AST/SGOT) 18 U/L (15-37) Alanine Aminotransferase (ALT/SGPT) 21 U/L (14-59) Alkaline Phosphatase 82 U/L (46-116) C-Reactive Protein, Quantitative < 0.5 mg/L (0-3.3) Total Protein 6.8 g/dL (6.4-8.2) Albumin 3.4 g/dL (3.4-5.0) Albumin/Globulin Ratio 1.0 (1.0-1.7) Procalcitonin < 0.10 ng/mL (0.00-0.10) Glucose (Fingerstick) 245 mg/dL (70-99) Images Images X-rays are reviewed Assessment/Plan Assessment/Plan Chronic wound left third toe. I did discuss partial versus complete amputation with her depending on intraoperative findings, I do think it'll probably more partial amputation no. We will plan on surgery later this morning. VIVIENNE GUILLERMO II, MD Sep 26, 2019 08:52
[2019-09-26] MEDS ORDERED: predniSONE 1 MG TABLET PO SCH (09:00)
[2019-09-26] MEDS: ASPIRIN ENTERIC COATED 81 MG TABLET.DR. PO SCH (09:00)
[2019-09-26] MEDS ORDERED: PROPOFOL 20 ML IV ONE (09:25)
[2019-09-26] MEDS ORDERED: LIDOCAINE 2% PF 5 ML VIAL. ONE (09:25)
[2019-09-26] MEDS ORDERED: DEXAMETHASONE SOD PHOS 4 MG/ML VIAL ONE (09:25)
[2019-09-26] MEDS ORDERED: ONDANSETRON PF 4 MG/2 ML VIAL. ONE (09:25)
--- NOTE | 2019-09-26 09:46 | NUR ---
IP: Pt had a hx of + mrsa screens 11/2017. There are now 2 negative screens and pt may be removed from contact precautions. Flag is removed.
[2019-09-26] MEDS ORDERED: hydrALAZINE 20 MG/ML VIAL. ONE (09:56)
[2019-09-26] MEDS ORDERED: hydrALAZINE 20 MG/ML VIAL. IVP PRN (10:15)
--- NOTE | 2019-09-26 10:38 | PDOC4 ---
Operative Note Operative Note Date of procedure: 09/26/2019 Surgeon: Robert Guillermo Asst.: José Miguel Fredis Preoperative diagnosis: Chronic wound left third toe Postoperative diagnosis: Same Procedure performed: Blood loss: 10mL Tourniquet time: none used Specimens: tissue sent for culture Complications: none Reason for procedure: Patient is very pleasant 64-year-old female who is had worsening pain at the tip of her third toe, she has had a wound care for several months, please see my consult note for further details. The patient and I had a discussion of the risks, benefits, and alternatives the above surgery and she elected to proceed. Description of procedure: Patient was greeted in the preoperative area by myself for the correct extremity was verified and marked. She is taken to the operative suite, maintained on her scheduled antibiotics, and once in the operative room she was transferred gently supine to the operating table and secured to bed with all pressure points padded. She underwent successful induction of a general anesthetic. The left lower extremity was then prepped and draped in our usual sterile fashion using Betadine paint. We conducted our standard preoperative timeout. I began the procedure by using a Rominger to debride the eschar over the tip of the wound. This revealed a 2-3 mm in diameter open wound down to bone, the bone was a little softer than I would've expected. Therefore, I made a fishmouth type incision and excised the skin centered around this wound, I then used a Rominger to remove the distal phalanx. Cautery was used for hemostasis. The wound was then thoroughly irrigated out with sterile saline. The remaining tissue and wound bed appeared healthy and viable. I then closed skin in a tensio n-free fashion using simple interrupted 3-0 nylon. Local anesthetic was injected at the base of the toe. A sterile soft bulky dressing was applied. She was awakened from anesthesia and transferred gently supine to the recovery room cart and taken to PACU in a stable and extubated condition. All counts correct 2 prior to wound closure. No complications. Postoperative plan is to readmitted her under the care of the hospitalist. I'll follow along. Given that I perform the partial toe amputation and the appearance of the remaining tissue, I do not anticipate that she will need long-term antibiotics. ROBERT GUILLERMO II, MD Sep 26, 2019 10:38
--- NOTE | 2019-09-26 10:41 | PDOC ---
PROGRESS NOTES Subjective Subjective pt seen in pre op Objective Objective Vital Signs Date Time Temp Pulse Resp B/P (MAP) Pulse Ox O2 Delivery O2 Flow Rate FiO2 09/26/19 10:11 80 237/134 09/26/19 09:44 98.4 24 100 Room Air 98.4 Intake and Output 09/26/19 07:00 Intake Total 550 ml Balance 550 ml Intake IV Total 550 ml # Voids 3 Physical Exam Abdomen: Soft, No tenderness Heart: Regular rate Extremities: No edema, Other (dorsalis pedis 1+) General: Alert, Oriented X3 HEENT: Atraumatic, EOMI Lungs: Other (respirations are unlabored with symmetric chest rise) MUSCULOSKELETAL: Other (she has prominent eschar over a wound at the tip of her third toe. 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 Labs Laboratory Tests Test 09/25/19 11:20 09/26/19 04:20 09/26/19 08:12 09/26/19 09:59 White Blood Count 6.2 x10^3/uL (4.0-11.0) 5.5 x10^3/uL (4.0-11.0) Red Blood Count 4.22 x10^6/uL (3.50-5.40) 4.25 x10^6/uL (3.50-5.40) Hemoglobin 11.0 g/dL (12.0-15.5) 11.1 g/dL (12.0-15.5) Hematocrit 34.7 % (36.0-47.0) 35.3 % (36.0-47.0) Mean Corpuscular Volume 82 fL (79-100) 83 fL (79-100) Mean Corpuscular Hemoglobin 26 pg (25-35) 26 pg (25-35) Mean Corpuscular Hemoglobin Concent 32 g/dL (31-37) 32 g/dL (31-37) Red Cell Distribution Width 16.8 % (11.5-14.5) 17.1 % (11.5-14.5) Platelet Count 242 x10^3/uL (140-400) 204 x10^3/uL (140-400) Neutrophils (%) (Auto) 63 % (31-73) 58 % (31-73) Lymphocytes (%) (Auto) 25 % (24-48) 29 % (24-48) Monocytes (%) (Auto) 8 % (0-9) 10 % (0-9) Eosinophils (%) (Auto) 3 % (0-3) 3 % (0-3) Basophils (%) (Auto) 1 % (0-3) 1 % (0-3) Neutrophils # (Auto) 3.9 x10^3/uL (1.8-7.7) 3.2 x10^3/uL (1.8-7.7) Lymphocytes # (Auto) 1.5 x10^3/uL (1.0-4.8) 1.6 x10^3/uL (1.0-4.8) Monocytes # (Auto) 0.5 x10^3/uL (0.0-1.1) 0.5 x10^3/uL (0.0-1.1) Eosinophils # (Auto) 0.2 x10^3/uL (0.0-0.7) 0.1 x10^3/uL (0.0-0.7) Basophils # (Auto) 0.1 x10^3/uL (0.0-0.2) 0.1 x10^3/uL (0.0-0.2) Erythrocyte Sedimentation Rate 22 (0-25) Prothrombin Time 13.1 SEC (11.7-14.0) Prothromb Time International Ratio 1.0 (0.8-1.1) Activated Partial Thromboplast Time 30 SEC (24-38) Sodium Level 142 mmol/L (136-145) Potassium Level 4.2 mmol/L (3.5-5.1) Chloride Level 106 mmol/L (98-107) Carbon Dioxide Level 24 mmol/L (21-32) Anion Gap 12 (6-14) Blood Urea Nitrogen 24 mg/dL (7-20) Creatinine 1.2 mg/dL (0.6-1.0) Estimated GFR (Cockcroft-Gault) 54.4 BUN/Creatinine Ratio 20 (6-20) Glucose Level 150 mg/dL (70-99) Lactic Acid Level 0.9 mmol/L (0.4-2.0) Calcium Level 10.7 mg/dL (8.5-10.1) Total Bilirubin 0.4 mg/dL (0.2-1.0) Aspartate Amino Transf (AST/SGOT) 18 U/L (15-37) Alanine Aminotransferase (ALT/SGPT) 21 U/L (14-59) Alkaline Phosphatase 82 U/L (46-116) C-Reactive Protein, Quantitative < 0.5 mg/L (0-3.3) Total Protein 6.8 g/dL (6.4-8.2) Albumin 3.4 g/dL (3.4-5.0) Albumin/Globulin Ratio 1.0 (1.0-1.7) Procalcitonin < 0.10 ng/mL (0.00-0.10) Glucose (Fingerstick) 245 mg/dL (70-99) 217 mg/dL (70-99) Medications Current Medications Acetaminophen (Tylenol) 650 mg PRN Q4HRS PRN PO FEVER; Start 09/25/19 at 13:30; Stop 09/25/19 at 21:56; Status DC Acetaminophen (Tylenol) 1,000 mg PRN Q8HRS PRN PO MILD PAIN 1-3; Start 09/25/19 at 22:00 Aspirin (Ecotrin) 81 mg DAILY PO ; Start 09/26/19 at 09:00 Atorvastatin Calcium (Lipitor) 80 mg QHS PO Last administered on 09/25/19at 22:11; Start 09/25/19 at 22:00 Dexamethasone Sodium Phosphate (Decadron) 4 mg STK-MED ONCE .ROUTE ; Start 09/26/19 at 09:25; Stop 09/26/19 at 09:25; Status DC Dextrose (Dextrose 50%-Water Syringe) 12.5 gm PRN Q15MIN PRN IV SEE COMMENTS; Start 09/25/19 at 21:15; Stop 09/25/19 at 21:56; Status DC Dextrose (Dextrose 50%-Water Syringe) 12.5 gm PRN Q15MIN PRN IV SEE COMMENTS; Start 09/25/19 at 22:00 Dextrose (Iv Dextrose 5%) 250 ml PRN Q15MIN PRN IV SEE COMMENTS; Start 09/25/19 at 21:15; Status Cancel Dextrose (Iv Dextrose 5%) 250 ml PRN Q15MIN PRN IV SEE COMMENTS; Start 09/25/19 at 22:00 Dextrose/Sodium Chloride 1,000 ml @ 75 mls/hr [id number] IV Last administered on 09/25/19at 22:09; Start 09/25/19 at 21:15 Fentanyl Citrate (Fentanyl 2ml Vial) 50 mcg PRN Q1HR PRN IV PAIN; Start 09/25/19 at 13:30; Stop 09/26/19 at 13:29 Fluconazole (Diflucan) 200 mg DAILY PO ; Start 09/26/19 at 09:00 Hydralazine HCl (Apresoline Inj) 10 mg PRN Q15MIN PRN IVP HYPERTENSION Last administered on 09/26/19at 10:11; Start 09/26/19 at 10:15; Stop 09/26/19 at 18:00 Hydralazine HCl (Apresoline Inj) 20 mg STK-MED ONCE .ROUTE ; Start 09/26/19 at 09:56; Stop 09/26/19 at 09:56; Status DC Hydralazine HCl (Apresoline) 25 mg TID PO Last administered on 09/26/19at 08:11; Start 09/25/19 at 22:00 Hydromorphone HCl (Dilaudid) 0.5 mg PRN Q10MIN PRN IV SEV PAIN, Second choice; Start 09/26/19 at 08:45; Stop 09/27/19 at 08:44 Insulin Human Lispro (HumaLOG) 0-5 UNITS TIDWMEALS SQ ; Start 09/26/19 at 08:00 Insulin Human Lispro (HumaLOG) 0-7 UNITS TIDWMEALS SQ ; Start 09/26/19 at 08:00; Status Cancel Levetiracetam (Keppra) 500 mg BID PO Last administered on 09/25/19at 22:10; Start 09/25/19 at 22:00 Lidocaine HCl (Lidocaine Pf 2% Vial) 5 ml STK-MED ONCE .ROUTE ; Start 09/26/19 at 09:25; Stop 09/26/19 at 09:25; Status DC Lisinopril (Prinivil) 10 mg DAILY PO Last administered on 09/26/19at 08:11; Start 09/26/19 at 09:00 Morphine Sulfate (Morphine Sulfate) 1 mg PRN Q10MIN PRN IV SEVERE PAIN 7-10; Start 09/26/19 at 08:45; Stop 09/27/19 at 08:44 Mycophenolate Sodium (Myfortic) 180 mg BID PO Last administered on 09/25/19at 22:10; Start 09/25/19 at 22:00 Ondansetron HCl (Zofran) 4 mg PRN Q8HRS PRN IV NAUSEA/VOMITING; Start 09/25/19 at 13:30; Stop 09/26/19 at 13:29 Ondansetron HCl (Zofran) 4 mg STK-MED ONCE .ROUTE ; Start 09/26/19 at 09:25; Stop 09/26/19 at 09:25; Status DC Piperacillin Sod/ Tazobactam Sod 3.375 gm/Sodium Chloride 50 ml @ 100 mls/hr 1X ONCE IV Last administered on 09/25/19at 12:33; Start 09/25/19 at 12:15; Stop 09/25/19 at 12:44; Status DC Prednisone (Prednisone) 2 mg DAILY PO ; Start 09/26/19 at 09:00 Prochlorperazine Edisylate (Compazine) 5 mg PACU PRN PRN IV NAUSEA, MRX1; Start 09/26/19 at 08:45; Stop 09/27/19 at 08:44 Propofol 20 ml @ As Directed STK-MED ONCE IV ; Start 09/26/19 at 09:25; Stop 09/26/19 at 09:25; Status DC Ringer's Solution 1,000 ml @ 30 mls/hr Q24H IV Last administered on 09/26/19at 10:09; Start 09/26/19 at 08:41; Stop 09/26/19 at 20:40 Tacrolimus (Prograf) 0.5 mg BID PO Last administered on 09/25/19at 22:10; Start 09/25/19 at 22:00 Vancomycin HCl (Vanco Per Pharmacy) 1 each PRN DAILY PRN MC SEE COMMENTS Last administered on 09/26/19at 04:05; Start 09/25/19 at 13:30 Vancomycin HCl (Vancomycin Trough Level) 1 each 1X ONCE MC ; Start 09/27/19 at 16:30; Stop 09/27/19 at 16:31 Vancomycin HCl 1.75 gm/Sodium Chloride 500 ml @ 250 mls/hr Q12H IV ; Start 09/26/19 at 05:00; Status Cancel Vancomycin HCl 1 gm/Sodium Chloride 250 ml @ 250 mls/hr Q24H IV ; Start 0 at 17:00; Status Cancel Vancomycin HCl 1 gm/Sodium Chloride 250 ml @ 250 mls/hr Q24H IV ; Start 09/26/19 at 17:00 Vancomycin HCl 2 gm/Sodium Chloride 500 ml @ 250 mls/hr 1X ONCE IV Last administered on 09/25/19at 16:39; Start 09/25/19 at 14:30; Stop 09/25/19 at 16:29; Status DC Vitamin B Complex/ Vitamin C (Vicki-Stacey) 1 tab DAILY PO ; Start 09/26/19 at 09:00 Vitals/I & O Vital Sign - Last 24 Hours 09/25/19 09/25/19 09/25/19 09/25/19 13:00 14:03 16:00 19:00 Temp 98.0 98.2 98.0 98.2 Pulse 84 82 78 Resp 20 18 17 B/P (MAP) 156/102 (120) 131/59 (83) 162/61 (94) Pulse Ox 98 97 98 O2 Delivery Room Air Room Air Room Air Room Air 09/25/19 09/25/19 09/25/19 09/26/19 20:10 22:10 22:46 03:00 Temp 98.0 98.3 98.0 98.3 Pulse 78 86 85 Resp 18 18 B/P (MAP) 162/61 165/110 (128) 146/65 (92) Pulse Ox 99 97 O2 Delivery Room Air Room Air Room Air 09/26/19 09/26/19 09/26/19 09/26/19 07:00 07:45 08:11 08:11 Temp 97.5 97.5 Pulse 80 80 80 Resp 14 B/P (MAP) 178/61 (100) 178/61 178/61 Pulse Ox 97 O2 Delivery Room Air Room Air 09/26/19 09/26/19 09:44 10:11 Temp 98.4 98.4 Pulse 85 80 Resp 24 B/P (MAP) 237/134 237/134 Pulse Ox 100 O2 Delivery Room Air Intake and Output 09/25/19 09/25/19 09/26/19 15:00 23:00 07:00 Intake Total 50 ml 500 ml Balance 50 ml 500 ml AUGUSTO BRUNER MD Sep 26, 2019 10:41
[2019-09-26] MEDS ORDERED: fentaNYL PF VIAL 100 MCG/2 ML VIAL ONE (10:48)
[2019-09-26] MEDS ORDERED: LIDOCAINE 1% PF 30 ML VIAL. ONE (10:55)
[2019-09-26] MEDS ORDERED: BUPIVACAINE MPF 0.5% 30 ML VIAL. ONE (10:56)
[2019-09-26] MEDS ORDERED: SEVOFLURANE 16 TO 30 MINUTES. IH ONE (11:02)
[2019-09-26] MEDS ORDERED: INSULIN LISPRO 100 UNIT/ML 3ML VIAL for OP,RR ONLY. SQ PRN (11:30)
[2019-09-26] MEDS: TACROLIMUS 0.5 MG CAPSULE PO SCH ×2 (12:42→21:27)
[2019-09-26] MEDS: FLUCONAZOLE 100 MG TABLET. PO SCH (12:42)
[2019-09-26] MEDS: FOLIC/VIT B COMP W-C (RENAL) TABLET. PO SCH (12:42)
[2019-09-26] MEDS: MYCOPHENOLATE ACID 180 MG TABLET.DR. PO SCH ×2 (12:42→21:27)
[2019-09-26] MEDS: levETIRAcetam 500 MG TABLET PO SCH ×2 (12:42→21:28)
[2019-09-26] MEDS: IV DEXTROSE 5% - 0.9 % NACL 1,000 ML IV SCH ×2 (12:48→23:55)
[2019-09-26] MEDS ORDERED: predniSONE 5 MG TABLET PO ONE (13:00)
--- NOTE | 2019-09-26 15:22 | NUR ---
Wound Care Wound care consult for L 3rd toe wound. Pt had surgery today, WC will follow up tomorrow.
[2019-09-26] MEDS: VANCOMYCIN 1 GM in IV NORMAL SALINE 250ML 250 ML IV SCH (17:44)
[2019-09-26] MEDS: ATORVASTATIN CALCIUM 40 MG TABLET. PO SCH (21:27)
[2019-09-27] MEDS ORDERED: INSULIN LISPRO 300 UNITS/3 ML VIAL. SQ ONE (01:30)
[2019-09-27 03:00] VITALS: BP 204/72
[2019-09-27] MEDS: cloNIDine HCL 0.2 MG TABLET PO PRN ×2 (03:40→09:11)
[2019-09-27 07:00] VITALS: BP 182/76
[2019-09-27] MEDS: INSULIN LISPRO 300 UNITS/3 ML VIAL. SQ SCH ×5 (08:14→21:00)
[2019-09-27] MEDS: FLUCONAZOLE 100 MG TABLET. PO SCH (09:11)
[2019-09-27] MEDS: ASPIRIN ENTERIC COATED 81 MG TABLET.DR. PO SCH (09:11)
[2019-09-27] MEDS: FOLIC/VIT B COMP W-C (RENAL) TABLET. PO SCH (09:11)
[2019-09-27] MEDS: TACROLIMUS 0.5 MG CAPSULE PO SCH ×2 (09:12→22:18)
[2019-09-27] MEDS: LISINOPRIL 10 MG TABLET PO SCH (09:12)
[2019-09-27] MEDS: hydrALAZINE 25 MG TABLET PO SCH ×3 (09:12→22:18)
[2019-09-27] MEDS: MYCOPHENOLATE ACID 180 MG TABLET.DR. PO SCH ×2 (09:12→21:00)
[2019-09-27] MEDS: levETIRAcetam 500 MG TABLET PO SCH ×2 (09:14→22:18)
--- NOTE | 2019-09-27 10:19 | PDOC ---
PROGRESS NOTES Subjective Subjective feels anxious Objective Objective Vital Signs Date Time Temp Pulse Resp B/P (MAP) Pulse Ox O2 Delivery O2 Flow Rate FiO2 09/27/19 09:12 100 182/76 09/27/19 03:00 98.6 20 100 Room Air 98.6 09/26/19 11:06 10 Intake and Output 09/27/19 07:00 Intake Total 810 ml Output Total 5 ml Balance 805 ml Intake Oral 610 ml IV Total 200 ml Output Estimated Blood Loss 5 ml # Voids 4 Physical Exam Abdomen: Soft, No tenderness Heart: Regular rate Extremities: No edema, Other (dorsalis pedis 1+) General: Alert, Oriented X3 HEENT: Atraumatic, EOMI Lungs: Other (respirations are unlabored with symmetric chest rise) MUSCULOSKELETAL: Other (she has prominent eschar over a wound at the tip of her third toe. The toe itself is not markedly erythematous or swollen.) Neuro: Normal speech, Strength at 5/5 X4 ext, Sensation intact Psych/Mental Status: Mood NL, Other (speech is slow, but she doesn't answer and ask questions appropriately) COMMENT Lt foot dressing Diagnosis Problem List Problems Medical Problems: (1) Open wound of left great toe Status: Acute (2) Osteomyelitis of foot, left, acute Status: Acute Assessment Assessment Problems Medical Problems: (1) Open wound of left great toe Status: Acute (2) Osteomyelitis of foot, left, acute Status: Acute toe infection osteo lt 3 rd toe 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 blood sugars high ,resumed home insulin regimen. BP high ,resumed home meds. vancomycin iv. wound care. d/c back to [place] monday? 1.chronic wounf lt 3 Plan Plan of Care Problems Medical Problems: (1) Open wound of left great toe Status: Acute (2) Osteomyelitis of foot, left, acute Status: Acute Comment Review of Relevant I have reviewed the following items warner (where applicable) has been applied. Labs Laboratory Tests Test 09/26/19 11:15 09/26/19 12:46 09/26/19 16:13 09/26/19 20:12 Glucose (Fingerstick) 219 mg/dL (70-99) 119 mg/dL (70-99) 302 mg/dL (70-99) 406 mg/dL (70-99) Test 09/26/19 20:15 09/27/19 01:10 09/27/19 07:22 Glucose (Fingerstick) 391 mg/dL (70-99) 420 mg/dL (70-99) 258 mg/dL (70-99) Microbiology 09/25/19 Blood Culture - Preliminary, Resulted NO GROWTH AFTER 1 DAY Medications Current Medications Amlodipine Besylate (Norvasc) 10 mg HS PO ; Start 09/27/19 at 21:00 Bupivacaine HCl (Sensorcaine Mpf 0.5%) 30 ml STK-MED ONCE .ROUTE Last administered on 09/26/19at 10:59; Start 09/26/19 at 10:56; Stop 09/26/19 at 10:56; Status DC Clonidine HCl (Catapres) 0.2 mg PRN Q4HRS PRN PO ELEVATED BP, SEE COMMENTS Last administered on 09/27/19at 09:11; Start 09/27/19 at 01:15 Fentanyl Citrate (Fentanyl 2ml Vial) 100 mcg STK-MED ONCE .ROUTE ; Start 09/26/19 at 10:48; Stop 09/26/19 at 10:49; Status DC Hydralazine HCl (Apresoline) 50 mg TID PO ; Start 09/27/19 at 14:00; Status UNV Insulin Glargine (Lantus Syringe) 17 unit QHS SQ ; Start 09/27/19 at 21:00 Insulin Human Lispro (HumaLOG VIAL for OP,RR ONLY) 0-10 units PRN Q1HR PRN SQ PER PROTOCOL Last administered on 09/26/19at 11:36; Start 09/26/19 at 11:30; Stop 09/27/19 at 11:29 Insulin Human Lispro (HumaLOG) 8 units BIDWMEALS SQ ; Start 09/27/19 at 12:00; Stop 09/27/19 at 10:14; Status DC Insulin Human Lispro (HumaLOG) 8 units TID SQ ; Start 09/27/19 at 14:00; Status UNV Insulin Human Lispro (HumaLOG) 15 units 1X ONCE SQ Last administered on 09/27/19at 01:17; Start 09/27/19 at 01:30; Stop 09/27/19 at 01:31; Status DC Lidocaine HCl (Xylocaine 1% Pf 30ml Vial) 30 ml STK-MED ONCE .ROUTE Last administered on 09/26/19at 10:59; Start 09/26/19 at 10:55; Stop 09/26/19 at 10:56; Status DC Prednisone (Prednisone) 2 mg DAILY PO ; Start 09/27/19 at 09:00 Prednisone (Prednisone) 2.5 mg ONCE ONCE PO Last administered on 09/26/19at 15:51; Start 09/26/19 at 13:00; Stop 09/26/19 at 13:01; Status DC Sevoflurane (Ultane) 15 ml STK-MED ONCE IH ; Start 09/26/19 at 11:02; Stop 09/26/19 at 11:02; Status DC Vancomycin HCl (Vancomycin Trough Level) 1 each 1X ONCE MC ; Start 09/27/19 at 16:30; Stop 09/27/19 at 16:31 Vancomycin HCl 1 gm/Sodium Chloride 250 ml @ 250 mls/hr Q24H IV Last administered on 09/26/19at 17:44; Start 09/26/19 at 17:00 Vitals/I & O Vital Sign - Last 24 Hours 09/26/19 09/26/19 09/26/19 09/26/19 11:06 11:06 11:20 11:35 Temp 97.8 97.8 97.8 97.8 97.8 97.8 Pulse 74 80 82 Resp 16 16 16 B/P (MAP) 152/51 154/72 191/63 Pulse Ox 100 100 100 O2 Delivery Mask Simple Mask Room Air Room Air O2 Flow Rate 10 10 09/26/19 09/26/19 09/26/19 09/26/19 11:50 12:11 12:36 12:50 Temp 97.8 98.7 97.8 98.7 Pulse 86 88 79 90 Resp 17 18 B/P (MAP) 162/85 150/78 (102) 128/43 (71) 143/104 (117) Pulse Ox 100 98 100 94 O2 Delivery Room Air Room Air Room Air Room Air 09/26/19 09/26/19 09/26/19 09/26/19 13:00 15:00 15:27 15:36 Temp 98.6 98.6 Pulse 88 75 79 Resp 18 18 B/P (MAP) 116/65 (82) 84/45 (58) 84/45 139/43 (75) Pulse Ox 96 96 95 O2 Delivery Room Air Room Air Room Air 09/26/19 09/26/19 09/26/19 09/26/19 16:35 19:00 20:00 21:30 Temp 97.9 97.9 Pulse 75 93 93 Resp 18 16 B/P (MAP) 143/44 (77) 177/79 (111) 177/79 Pulse Ox 96 95 O2 Delivery Room Air Room Air Room Air 09/26/19 09/27/19 09/27/19 09/27/19 23:00 03:00 03:40 09:11 Temp 98.3 98.6 98.3 98.6 Pulse 93 100 100 100 Resp 16 20 B/P (MAP) 206/92 (130) 204/72 (116) 204/72 182/76 Pulse Ox 95 100 O2 Delivery Room Air Room Air 09/27/19 09/27/19 09:12 09:12 Pulse 100 100 B/P (MAP) 182/76 182/76 Intake and Output 09/26/19 09/26/19 09/27/19 15:00 23:00 07:00 Intake Total 200 ml 510 ml 100 ml Output Total 5 ml Balance 195 ml 510 ml 100 ml Nutrition Consultation Dietary Evaluation: Recommendations by RD: Dietary education by RD, Increase Calorie Intake, Protein supplementation Comments: ADA, renal diet w/ nepro bid Vicki-yesenia Expected Outcomes/Goals: to meet >75% est nutr needs Malnutrition Findings: Body Fat Depletion (Non Severe: Mild Depletion Weight Status: Appropriate AUGUSTO BRUNER MD Sep 27, 2019 10:19
[2019-09-27 11:00] VITALS: BP 144/99
[2019-09-27] MEDS ORDERED: INSULIN LISPRO 300 UNITS/3 ML VIAL. SQ SCH (12:00)
--- NOTE | 2019-09-27 13:02 | NUR ---
SW following. Discussed with RN, PT/OT ordered, wound care following. Pt is from [facility]. SW will continue to follow.
[2019-09-27] MEDS: predniSONE 1 MG TABLET PO SCH (13:51)
--- NOTE | 2019-09-27 14:11 | NUR ---
Wound Care: Follow up with patient following closed amputation of L 3rd toe by Toshia on 09/26/2019. Incision pictured and measured per protocol. Dresed with xeroform dressing, ABD and kerlix. No other open areas noted on head to toe assessment. Heels floated on pillow, declined to turn to side, left sitting up in bed watching TV. Follow up 10/03/2019. Education provided on turning to prevent skin breakdown.
[2019-09-27 15:00] VITALS: BP 141/64
[2019-09-27] MEDS: ALPRAZolam 0.25 MG TABLET PO PRN (16:10)
--- NOTE | 2019-09-27 17:10 | NUR ---
post op shoe placed in patients' room, per patient may ambulate with post op or 1/2 shoe.
[2019-09-27 17:58] LABS: CREATININE 1.4 mg/dL (0.6-1.0); GFR 45.5
[2019-09-27 18:05] LABS: VANC TR 15.8 mcg/mL (10.0-20.0)
[2019-09-27] MEDS: VANCOMYCIN PER PHARMACY MC PRN (18:08)
--- NOTE | 2019-09-27 18:10 | NUR ---
Pharmacy Vancomycin Dosing Note S: Consulted to monitor and dose vancomycin started 09/25/19. O: DIANA WATERS is a 64 year old F with Osteomyelitis Other Antibiotics: LABS: Last BUN: 24 Last Creatinine: 1.4 Creatinine Clearance: 37.5 mL/min Last WBC: 6.2 Last Procalcitonin: Tmax (past 24 hours): 98.6 Microbiology: I/O: 810/4 VOIDS Drug Levels: Last Trough level: 15.8 on 09/27/19 at 1655 Last dose given 09/25/19 at 1700 Vancomycin Dosing: Dosing Weight: Actual Target Trough: 15-20 A: Based on: trough P: 1. Continue Vancomycin 1000 mg IV q24h 2. Follow up Trough level in 5 days if needed; re-check BMP in am 3. Pharmacy will continue to monitor, follow and adjust therapy as needed. Ada Freeman RPH, 09/27/19 [id number]
[2019-09-27 19:00] VITALS: BP 158/57
[2019-09-27] MEDS: VANCOMYCIN 1 GM in IV NORMAL SALINE 250ML 250 ML IV SCH (20:27)
[2019-09-27] MEDS: ATORVASTATIN CALCIUM 40 MG TABLET. PO SCH (22:18)
[2019-09-27] MEDS: amLODIPine BESYLATE 10 MG TABLET PO SCH (22:19)
[2019-09-27] MEDS: INSULIN GLARGINE SYRINGE. SQ SCH (22:26)
[2019-09-27 23:00] VITALS: BP 138/71
[2019-09-28] MEDS: ALPRAZolam 0.25 MG TABLET PO PRN ×2 (00:14→08:23)
[2019-09-28 03:00] VITALS: BP 127/70
[2019-09-28 07:10] VITALS: BP 144/49
[2019-09-28] MEDS: TACROLIMUS 0.5 MG CAPSULE PO SCH ×2 (08:22→21:35)
[2019-09-28] MEDS: levETIRAcetam 500 MG TABLET PO SCH ×2 (08:22→21:36)
[2019-09-28] MEDS: ASPIRIN ENTERIC COATED 81 MG TABLET.DR. PO SCH (08:23)
[2019-09-28] MEDS: FOLIC/VIT B COMP W-C (RENAL) TABLET. PO SCH (08:23)
[2019-09-28] MEDS: MYCOPHENOLATE ACID 180 MG TABLET.DR. PO SCH ×2 (08:23→21:36)
[2019-09-28] MEDS: predniSONE 1 MG TABLET PO SCH (08:23)
[2019-09-28] MEDS: FLUCONAZOLE 100 MG TABLET. PO SCH (08:23)
[2019-09-28] MEDS: LISINOPRIL 10 MG TABLET PO SCH (08:24)
[2019-09-28] MEDS: hydrALAZINE 25 MG TABLET PO SCH ×3 (08:25→21:36)
[2019-09-28] MEDS: INSULIN LISPRO 300 UNITS/3 ML VIAL. SQ SCH ×6 (08:31→21:34)
--- NOTE | 2019-09-28 10:48 | PDOC ---
IM PROGRESS NOTES- Subjective Subjective No complaints of pain. No complaints of dyspnea. As per staff patient remains confused. Objective Vitals/I&O Vital Signs Date Time Temp Pulse Resp B/P (MAP) Pulse Ox O2 Delivery O2 Flow Rate FiO2 09/28/19 08:25 76 144/49 09/28/19 07:10 97.6 18 99 Room Air 97.6 09/27/19 08:00 10.0 I & O 09/27/19 09/27/19 09/28/19 14:59 22:59 06:59 Intake Total 200 ml Output Total 200 ml Balance 0 ml Physical Exam Physical Exam General appearance - alert,ill appearing, and in no distress Mental Status - alert Head - normal Chest - clear to auscultation, no wheezes, rales or rhonchi, symmetric air entry Heart - S1 and S2 normal Abdomen - soft, nontender Neurological - alert and oriented Musculoskeletal - no muscular tenderness noted Extremities - no pedal edema, dressing in place. Skin - warm and dry Labs Laboratory Tests Test 09/27/19 12:25 09/27/19 16:09 09/27/19 16:55 09/28/19 07:04 Glucose (Fingerstick) 286 mg/dL (70-99) H 135 mg/dL (70-99) H 239 mg/dL (70-99) H Creatinine 1.4 mg/dL (0.6-1.0) H Estimated GFR (Cockcroft-Gault) 45.5 Vancomycin Level Trough 15.8 mcg/mL (10.0-20.0) Vancomycin Last Dose Date 1700 Vancomycin Last Dose Time 09/26/19 Laboratory Tests 09/27/19 16:55 Meds Current Medications Medications (Trade) Dose Ordered Sig/Te Route PRN Reason Start Time Stop Time Status Last Admin Dose Admin Amlodipine Besylate (Norvasc) 10 mg HS PO 09/27/19 21:00 09/27/19 22:19 Insulin Glargine (Lantus Syringe) 17 unit QHS SQ 09/27/19 21:00 09/27/19 22:26 Hydralazine HCl (Apresoline) 50 mg TID PO 09/27/19 14:00 09/28/19 08:25 Insulin Human Lispro (HumaLOG) 8 units TID SQ 09/27/19 14:00 09/28/19 08:31 Assessment Assessment Problems Medical Problems: (1) Open wound of left great toe Status: Acute (2) Osteomyelitis of foot, left, acute Status: Acute toe infection osteo lt 3 rd toe 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 Continue wound care. Blood sugars are still high but improving slowly. Hypertension- control is slowly improving. vancomycin iv. wound care. Monitor confusion. Slowly improving. Plan Plan For more details regarding further plans, please refer to the orders. Nutrition Consultation Dietary Evaluation: Recommendations by RD: Dietary education by RD, Increase Calorie Intake, Protein supplementation Comments: ADA, renal diet w/ nepro bid Vicki-yesenia Expected Outcomes/Goals: to meet >75% est nutr needs Malnutrition Findings: Body Fat Depletion (Non Severe: Mild Depletion Weight Status: Appropriate BLAIRE PARTIDA MD Sep 28, 2019 10:48
[2019-09-28 11:28] LABS: BASO % 0 % (0-3); EOS # 0.1 x10^3/uL (0.0-0.7); EOS % 2 % (0-3); HEMATOCRIT 35.5 % (36.0-47.0); HEMOGLOBIN 11.1 g/dL (12.0-15.5); LYMPH # 1.5 x10^3/uL (1.0-4.8); LYMPH % 20 % (24-48); MEAN CORPUSCULAR HEMOGLOBIN 26 pg (25-35); MEAN CORPUSCULAR HGB CONC 31 g/dL (31-37); MEAN CORPUSCULAR VOLUME 83 fL (79-100); MONO # 0.5 x10^3/uL (0.0-1.1); MONO % 7 % (0-9); NEUT # 5.4 x10^3/uL (1.8-7.7); NEUT % 71 % (31-73); PLATELET COUNT 255 x10^3/uL (140-400); RED CELL DISTRIBUTION WIDTH 16.6 % (11.5-14.5); WHITE BLOOD COUNT 7.6 x10^3/uL (4.0-11.0)
[2019-09-28 11:50] LABS: CALCIUM 10.8 mg/dL (8.5-10.1); CREATININE 1.2 mg/dL (0.6-1.0); GFR 54.4; POTASSIUM 3.7 mmol/L (3.5-5.1)
[2019-09-28 15:59] VITALS: BP 160/60
[2019-09-28] MEDS: VANCOMYCIN PER PHARMACY MC PRN (16:44)
[2019-09-28] MEDS: VANCOMYCIN 1 GM in IV NORMAL SALINE 250ML 250 ML IV SCH (17:11)
[2019-09-28 19:00] VITALS: BP 142/53
[2019-09-28] MEDS: ATORVASTATIN CALCIUM 40 MG TABLET. PO SCH (21:35)
[2019-09-28] MEDS: INSULIN GLARGINE SYRINGE. SQ SCH (21:35)
[2019-09-28] MEDS: amLODIPine BESYLATE 10 MG TABLET PO SCH (21:37)
[2019-09-28 23:00] VITALS: BP 147/58
[2019-09-29 03:00] VITALS: BP 129/48
[2019-09-29 07:31] LABS: BASO # 0.1 x10^3/uL (0.0-0.2); BASO % 1 % (0-3); EOS # 0.2 x10^3/uL (0.0-0.7); EOS % 3 % (0-3); HEMATOCRIT 37.6 % (36.0-47.0); HEMOGLOBIN 11.8 g/dL (12.0-15.5); LYMPH # 2.1 x10^3/uL (1.0-4.8); LYMPH % 27 % (24-48); MEAN CORPUSCULAR HEMOGLOBIN 26 pg (25-35); MEAN CORPUSCULAR HGB CONC 31 g/dL (31-37); MEAN CORPUSCULAR VOLUME 82 fL (79-100); MONO # 0.7 x10^3/uL (0.0-1.1); MONO % 9 % (0-9); NEUT # 4.6 x10^3/uL (1.8-7.7); NEUT % 60 % (31-73); PLATELET COUNT 261 x10^3/uL (140-400); RED BLOOD COUNT 4.59 x10^6/uL (3.50-5.40); RED CELL DISTRIBUTION WIDTH 16.9 % (11.5-14.5); WHITE BLOOD COUNT 7.7 x10^3/uL (4.0-11.0)
[2019-09-29 07:46] LABS: CALCIUM 10.9 mg/dL (8.5-10.1); CREATININE 1.1 mg/dL (0.6-1.0); GFR 60.1
[2019-09-29 07:59] VITALS: BP 149/53
[2019-09-29] MEDS: predniSONE 1 MG TABLET PO SCH (08:43)
[2019-09-29] MEDS: MYCOPHENOLATE ACID 180 MG TABLET.DR. PO SCH ×2 (08:43→21:20)
[2019-09-29] MEDS: levETIRAcetam 500 MG TABLET PO SCH ×2 (08:43→21:20)
[2019-09-29] MEDS: hydrALAZINE 25 MG TABLET PO SCH ×3 (08:43→21:21)
[2019-09-29] MEDS: TACROLIMUS 0.5 MG CAPSULE PO SCH ×2 (08:43→21:20)
[2019-09-29] MEDS: FLUCONAZOLE 100 MG TABLET. PO SCH (08:43)
[2019-09-29] MEDS: ASPIRIN ENTERIC COATED 81 MG TABLET.DR. PO SCH (08:43)
[2019-09-29] MEDS: FOLIC/VIT B COMP W-C (RENAL) TABLET. PO SCH (08:44)
[2019-09-29] MEDS: LISINOPRIL 10 MG TABLET PO SCH (08:44)
[2019-09-29] MEDS: INSULIN LISPRO 300 UNITS/3 ML VIAL. SQ SCH ×6 (08:52→17:54)
--- NOTE | 2019-09-29 09:50 | PDOC ---
IM PROGRESS NOTES- Subjective Subjective No complaints of pain. No complaints of dyspnea. As per staff patient remains confused. Objective Vitals/I&O Vital Signs Date Time Temp Pulse Resp B/P (MAP) Pulse Ox O2 Delivery O2 Flow Rate FiO2 09/29/19 08:44 97 149/53 09/29/19 07:59 97.5 18 97 Room Air 97.5 I & O 09/28/19 09/28/19 09/29/19 15:00 23:00 07:00 Intake Total 200 ml 60 ml 90 ml Balance 200 ml 60 ml 90 ml Physical Exam Physical Exam General appearance - alert,ill appearing, and in no distress Mental Status - alert Head - normal Chest - clear to auscultation, no wheezes, rales or rhonchi, symmetric air entry Heart - S1 and S2 normal Abdomen - soft, nontender Neurological - alert and oriented Musculoskeletal - no muscular tenderness noted Extremities - no pedal edema, dressing in place. Skin - warm and dry Labs Laboratory Tests Test 09/28/19 11:00 09/28/19 11:49 09/28/19 13:58 09/28/19 17:08 White Blood Count 7.6 x10^3/uL (4.0-11.0) Red Blood Count 4.30 x10^6/uL (3.50-5.40) Hemoglobin 11.1 g/dL (12.0-15.5) L Hematocrit 35.5 % (36.0-47.0) L Mean Corpuscular Volume 83 fL (79-100) Mean Corpuscular Hemoglobin 26 pg (25-35) Mean Corpuscular Hemoglobin Concent 31 g/dL (31-37) Red Cell Distribution Width 16.6 % (11.5-14.5) H Platelet Count 255 x10^3/uL (140-400) Neutrophils (%) (Auto) 71 % (31-73) Lymphocytes (%) (Auto) 20 % (24-48) L Monocytes (%) (Auto) 7 % (0-9) Eosinophils (%) (Auto) 2 % (0-3) Basophils (%) (Auto) 0 % (0-3) Neutrophils # (Auto) 5.4 x10^3/uL (1.8-7.7) Lymphocytes # (Auto) 1.5 x10^3/uL (1.0-4.8) Monocytes # (Auto) 0.5 x10^3/uL (0.0-1.1) Eosinophils # (Auto) 0.1 x10^3/uL (0.0-0.7) Basophils # (Auto) 0.0 x10^3/uL (0.0-0.2) Sodium Level 143 mmol/L (136-145) Potassium Level 3.7 mmol/L (3.5-5.1) Chloride Level 106 mmol/L (98-107) Carbon Dioxide Level 28 mmol/L (21-32) Anion Gap 9 (6-14) Blood Urea Nitrogen 27 mg/dL (7-20) H Creatinine 1.2 mg/dL (0.6-1.0) H Estimated GFR (Cockcroft-Gault) 54.4 Glucose Level 147 mg/dL (70-99) H Calcium Level 10.8 mg/dL (8.5-10.1) H Glucose (Fingerstick) 104 mg/dL (70-99) H 221 mg/dL (70-99) H 207 mg/dL (70-99) H Test 09/28/19 20:27 09/29/19 06:20 09/29/19 08:13 Glucose (Fingerstick) 196 mg/dL (70-99) H 172 mg/dL (70-99) H White Blood Count 7.7 x10^3/uL (4.0-11.0) Red Blood Count 4.59 x10^6/uL (3.50-5.40) Hemoglobin 11.8 g/dL (12.0-15.5) L Hematocrit 37.6 % (36.0-47.0) Mean Corpuscular Volume 82 fL (79-100) Mean Corpuscular Hemoglobin 26 pg (25-35) Mean Corpuscular Hemoglobin Concent 31 g/dL (31-37) Red Cell Distribution Width 16.9 % (11.5-14.5) H Platelet Count 261 x10^3/uL (140-400) Neutrophils (%) (Auto) 60 % (31-73) Lymphocytes (%) (Auto) 27 % (24-48) Monocytes (%) (Auto) 9 % (0-9) Eosinophils (%) (Auto) 3 % (0-3) Basophils (%) (Auto) 1 % (0-3) Neutrophils # (Auto) 4.6 x10^3/uL (1.8-7.7) Lymphocytes # (Auto) 2.1 x10^3/uL (1.0-4.8) Monocytes # (Auto) 0.7 x10^3/uL (0.0-1.1) Eosinophils # (Auto) 0.2 x10^3/uL (0.0-0.7) Basophils # (Auto) 0.1 x10^3/uL (0.0-0.2) Sodium Level 143 mmol/L (136-145) Potassium Level 4.0 mmol/L (3.5-5.1) Chloride Level 107 mmol/L (98-107) Carbon Dioxide Level 26 mmol/L (21-32) Anion Gap 10 (6-14) Blood Urea Nitrogen 27 mg/dL (7-20) H Creatinine 1.1 mg/dL (0.6-1.0) H Estimated GFR (Cockcroft-Gault) 60.1 Glucose Level 167 mg/dL (70-99) H Calcium Level 10.9 mg/dL (8.5-10.1) H Laboratory Tests 09/28/19 11:00 09/29/19 06:20 Laboratory Tests 09/28/19 11:00 09/29/19 06:20 Assessment Assessment Problems Medical Problems: (1) Open wound of left great toe Status: Acute (2) Osteomyelitis of foot, left, acute Status: Acute toe infection Osteomyelitis of the left third toe Diabetes mellitus, insulin-dependent Chronic kidney disease Peripheral artery disease Hypertension Coronary artery disease old cva PLAN:POD #1, partial left 3 rd toe amputation. Continue wound care. Blood sugars are still high but improving slowly. Increase Lantus to 20 units subcutaneous daily Hypertension- control is slowly improving. vancomycin iv. wound care. Monitor confusion. Slowly improving. Plan Plan For more details regarding further plans, please refer to the orders. Nutrition Consultation Dietary Evaluation: Recommendations by RD: Dietary education by RD, Increase Calorie Intake, Protein supplementation Comments: ADA, renal diet w/ nepro bid Vicki-yesenia Expected Outcomes/Goals: to meet >75% est nutr needs Malnutrition Findings: Body Fat Depletion (Non Severe: Mild Depletion Weight Status: Appropriate BLAIRE PARTIDA MD Sep 29, 2019 09:50
[2019-09-29 11:59] VITALS: BP 135/57
[2019-09-29 15:59] VITALS: BP 151/54
[2019-09-29] MEDS: VANCOMYCIN 1 GM in IV NORMAL SALINE 250ML 250 ML IV SCH (17:00)
[2019-09-29] MEDS: VANCOMYCIN PER PHARMACY MC PRN (17:14)
[2019-09-29 19:00] VITALS: BP 121/42
[2019-09-29] MEDS ORDERED: INSULIN GLARGINE SYRINGE. SQ SCH (21:00)
[2019-09-29] MEDS: ATORVASTATIN CALCIUM 40 MG TABLET. PO SCH (21:20)
[2019-09-29] MEDS: amLODIPine BESYLATE 10 MG TABLET PO SCH (21:21)
[2019-09-29 23:00] VITALS: BP 154/49
[2019-09-30 03:00] VITALS: BP 155/60
[2019-09-30 05:23] LABS: BASO # 0.1 x10^3/uL (0.0-0.2); BASO % 1 % (0-3); EOS # 0.3 x10^3/uL (0.0-0.7); EOS % 3 % (0-3); HEMATOCRIT 38.4 % (36.0-47.0); HEMOGLOBIN 12.1 g/dL (12.0-15.5); LYMPH # 2.5 x10^3/uL (1.0-4.8); LYMPH % 28 % (24-48); MEAN CORPUSCULAR HEMOGLOBIN 26 pg (25-35); MEAN CORPUSCULAR HGB CONC 32 g/dL (31-37); MEAN CORPUSCULAR VOLUME 82 fL (79-100); MONO # 0.9 x10^3/uL (0.0-1.1); MONO % 10 % (0-9); NEUT # 5.2 x10^3/uL (1.8-7.7); NEUT % 59 % (31-73); PLATELET COUNT 256 x10^3/uL (140-400); RED BLOOD COUNT 4.69 x10^6/uL (3.50-5.40); RED CELL DISTRIBUTION WIDTH 17.4 % (11.5-14.5); WHITE BLOOD COUNT 8.9 x10^3/uL (4.0-11.0)
[2019-09-30 07:00] VITALS: BP 148/50
[2019-09-30] MEDS: INSULIN LISPRO 300 UNITS/3 ML VIAL. SQ SCH ×4 (07:48→13:02)
[2019-09-30] MEDS: FOLIC/VIT B COMP W-C (RENAL) TABLET. PO SCH (09:04)
[2019-09-30] MEDS: TACROLIMUS 0.5 MG CAPSULE PO SCH (09:04)
[2019-09-30] MEDS: LISINOPRIL 10 MG TABLET PO SCH (09:04)
[2019-09-30] MEDS: ASPIRIN ENTERIC COATED 81 MG TABLET.DR. PO SCH (09:04)
[2019-09-30] MEDS: predniSONE 1 MG TABLET PO SCH (09:05)
[2019-09-30] MEDS: levETIRAcetam 500 MG TABLET PO SCH (09:05)
[2019-09-30] MEDS: hydrALAZINE 25 MG TABLET PO SCH ×2 (09:05→12:56)
[2019-09-30] MEDS: FLUCONAZOLE 100 MG TABLET. PO SCH (09:05)
[2019-09-30] MEDS: MYCOPHENOLATE ACID 180 MG TABLET.DR. PO SCH (09:06)
--- NOTE | 2019-09-30 09:57 | PDOC ---
PROGRESS NOTES Subjective Subjective feels good ,want to go back to [place] Objective Objective Vital Signs Date Time Temp Pulse Resp B/P (MAP) Pulse Ox O2 Delivery O2 Flow Rate FiO2 09/30/19 09:05 92 155/60 09/30/19 08:00 Room Air 09/30/19 03:00 97.6 18 98 97.6 Intake and Output 09/30/19 07:00 Intake Total 440 ml Balance 440 ml Intake Oral 440 ml # Voids 1 Physical Exam Abdomen: Soft, No tenderness Heart: Regular rate Extremities: No edema, Other (dorsalis pedis 1+) General: Alert, Oriented X3 HEENT: Atraumatic, EOMI Lungs: Other (respirations are unlabored with symmetric chest rise) MUSCULOSKELETAL: Other (she has prominent eschar over a wound at the tip of her third toe. The toe itself is not markedly erythematous or swollen.) Neuro: Normal speech, Strength at 5/5 X4 ext, Sensation intact Psych/Mental Status: Mood NL, Other (speech is slow, but she doesn't answer and ask questions appropriately) COMMENT Lt foot dressing, partial amputaion ,lt 3 rd toe and primary wound closure Diagnosis Problem List Problems Medical Problems: (1) Open wound of left great toe Status: Acute (2) Osteomyelitis of foot, left, acute Status: Acute Assessment Assessment Problems Medical Problems: (1) Open wound of left great toe Status: Acute (2) Osteomyelitis of foot, left, acute Status: Acute toe infection Osteomyelitis of the left third toe Diabetes mellitus, insulin-dependent Chronic kidney disease Peripheral artery disease Hypertension Coronary artery disease old cva PLAN:POD #4, partial left 3 rd toe amputation.primary closure Blood sugars improved Hypertension- controlled. d/c vancomycin iv. po keflex for 5 days d/c back to [place] today Plan Plan of Care Problems Medical Problems: (1) Open wound of left great toe Status: Acute (2) Osteomyelitis of foot, left, acute Status: Acute Comment Review of Relevant I have reviewed the following items warner (where applicable) has been applied. Labs Laboratory Tests Test 09/29/19 12:25 09/29/19 17:19 09/29/19 20:26 09/30/19 05:00 Glucose (Fingerstick) 129 mg/dL (70-99) 133 mg/dL (70-99) 161 mg/dL (70-99) White Blood Count 8.9 x10^3/uL (4.0-11.0) Red Blood Count 4.69 x10^6/uL (3.50-5.40) Hemoglobin 12.1 g/dL (12.0-15.5) Hematocrit 38.4 % (36.0-47.0) Mean Corpuscular Volume 82 fL (79-100) Mean Corpuscular Hemoglobin 26 pg (25-35) Mean Corpuscular Hemoglobin Concent 32 g/dL (31-37) Red Cell Distribution Width 17.4 % (11.5-14.5) Platelet Count 256 x10^3/uL (140-400) Neutrophils (%) (Auto) 59 % (31-73) Lymphocytes (%) (Auto) 28 % (24-48) Monocytes (%) (Auto) 10 % (0-9) Eosinophils (%) (Auto) 3 % (0-3) Basophils (%) (Auto) 1 % (0-3) Neutrophils # (Auto) 5.2 x10^3/uL (1.8-7.7) Lymphocytes # (Auto) 2.5 x10^3/uL (1.0-4.8) Monocytes # (Auto) 0.9 x10^3/uL (0.0-1.1) Eosinophils # (Auto) 0.3 x10^3/uL (0.0-0.7) Basophils # (Auto) 0.1 x10^3/uL (0.0-0.2) Test 09/30/19 07:40 Glucose (Fingerstick) 127 mg/dL (70-99) Microbiology 09/26/19 Anaerobic/Aerobic Culture, Resulted Pending 09/26/19 Anaerobic Culture Result 1 (LYN), Resulted Pending 09/26/19 Aerobic Culture - Final, Resulted 09/26/19 Aerobic Culture Result 1 (LYN) - Final, Resulted 09/26/19 Gram Stain - Final, Resulted 09/26/19 Gram Stain Result 1 (LYN) - Final, Resulted 09/26/19 Gram Stain Result 2 (LYN) - Final, Resulted 09/25/19 Blood Culture - Preliminary, Resulted NO GROWTH AFTER 4 DAYS Medications Current Medications Insulin Glargine (Lantus Syringe) 20 unit QHS SQ Last administered on 09/29/19at 21:23; Start 09/29/19 at 21:00 Vitals/I & O Vital Sign - Last 24 Hours 09/29/19 09/29/19 09/29/19 09/29/19 11:59 15:59 17:46 19:00 Temp 97.6 97.5 98.3 97.6 97.5 98.3 Pulse 84 84 84 77 Resp 18 18 18 B/P (MAP) 135/57 (83) 151/54 (86) 151/54 121/42 (68) Pulse Ox 99 98 95 O2 Delivery Room Air Room Air Room Air 09/29/19 09/29/19 09/29/19 09/29/19 20:30 21:21 21:21 23:00 Temp 98.2 98.2 Pulse 84 84 83 Resp 18 B/P (MAP) 170/54 170/54 154/49 (84) Pulse Ox 96 O2 Delivery Room Air Room Air 09/30/19 09/30/19 09/30/19 09/30/19 03:00 08:00 09:04 09:05 Temp 97.6 97.6 Pulse 92 92 92 Resp 18 B/P (MAP) 155/60 (91) 155/60 155/60 Pulse Ox 98 O2 Delivery Room Air Room Air Intake and Output 09/29/19 09/29/19 09/30/19 15:00 23:00 07:00 Intake Total 320 ml 120 ml 0 ml Balance 320 ml 120 ml 0 ml Nutrition Consultation Dietary Evaluation: Recommendations by RD: Dietary education by RD, Increase Calorie Intake, Protein supplementation Comments: ADA, renal diet w/ nepro bid Vicki-yesenia Expected Outcomes/Goals: to meet >75% est nutr needs Malnutrition Findings: Body Fat Depletion (Non Severe: Mild Depletion Weight Status: Appropriate AUGUSTO BRUNER MD Sep 30, 2019 09:57
[2019-09-30] MEDS ORDERED: AMLO10TA8 PO (10:02)
[2019-09-30] MEDS ORDERED: CEPH-264 PO (10:02)
--- NOTE | 2019-09-30 10:04 | SNU/HH DC ---
DISCHARGE ORDERS DISCHARGE INFORMATION: DISCHARGE DATE: Sep 30, 2019 FINAL DIAGNOSIS Problems Medical Problems: (1) Open wound of left great toe Status: Acute (2) Osteomyelitis of foot, left, acute Status: Acute CONDITION ON DISCHARGE: Stable CODE STATUS: Code Status: Full MCC: SNF STAY <30 DAYS: Yes HOSPICE: HOSPICE: No LTAC: ADMIT TO LTAC: No POST DISCHARGE ORDERS: ACTIVITY ORDERS: Resume previous activity, Activity as tolerated WEIGHT BEARING STATUS: Partial weight bearing DIET AFTER DISCHARGE: ADA WOUND/INCISION CARE: Change dressing, Reinforce dressing PRN OTHER ORDERS: post op shoe CHECKS AFTER DISCHARGE: CHECKS AFTER DISCHARGE: Check blood sugar, ac/hs FOLLOW-UP: PHYSICIAN FOLLOW-UP: ortho f/u in 1 week TREATMENT/EQUIPMENT ORDERS: ADAPTIVE EQUIPMENT NEEDED: Wheelchair Physical Therapy For: Evalulation/Treatment DISCHARGE MEDICATIONS: Home Meds Active Scripts Cephalexin (KEFLEX) 500 Mg Capsule, 1 CAP PO BID for toe surgery for 5 Days, #10 CAP 0 Refills Prov:AUGUSTO BRUNER MD 09/30/19 Amlodipine Besylate (AMLODIPINE BESYLATE) 10 Mg Tablet, 10 MG PO HS for htn for 30 Days, #30 TAB Prov:AUGUSTO BRUNER MD 09/30/19 Fluconazole (DIFLUCAN) 100 Mg Tablet, 200 MG PO DAILY, #30 Prov:AUGUSTO BRUNER MD 04/30/16 Reported Medications Acetaminophen (ACETAMINOPHEN) 500 Mg Tablet, 2 TAB PO PRN Q8HRS PRN for PAIN for 15 Days, #60 TAB 0 Refills 09/25/19 Prednisone (PREDNISONE) 1 Mg Tablet, 2 MG PO DAILY for kidney transplant, TAB 09/25/19 Insulin Lispro (HUMALOG) 100 Unit/1 Ml Vial, 8 UNIT SQ BIDACLD for diabetes, VIAL 09/25/19 Insulin Lispro (Humalog) 100 Unit/1 Ml Vial, 4 UNIT SQ DAILYWBKFT for diabetes, EACH 09/25/19 Hydralazine Hcl (HYDRALAZINE HCL) 25 Mg Tablet, 1 TAB PO TID for htn, #90 TAB 5 Refills 09/25/19 Aspirin (ASPIR-LOW) 81 Mg Tablet.dr, 1 TAB PO DAILY for htn,cad,chronic kidney disease, #30 TAB 3 Refills 09/25/19 Tacrolimus (PROGRAF) 1 Mg Capsule, 0.5 MG PO BID for antirejection medication 7/26/16 Insulin Detemir (LEVEMIR) 100 Unit/1 Ml Vial, 17 UNIT SQ QHS for dm, VIAL Hold for FSBS below 90 and call MD 02/25/16 Lisinopril (LISINOPRIL) 10 Mg Tablet, 1 TAB PO DAILY for htn, #30 TAB 5 Refills 02/25/16 Folic Acid/Vitamin B Comp W-C (NEPHRO-SUSANA TABLET) 0.8 Mg Tablet, 1 TAB PO DAILY for supplement, #30 TAB 5 Refills 02/25/16 Mycophenolate Sodium (MYFORTIC) 180 Mg Tablet.dr, 180 MG PO BID for anti rejection 02/25/16 Atorvastatin Calcium (ATORVASTATIN CALCIUM) 40 Mg Tablet, 2 TAB PO QHS for high cholesterol, #90 TAB 3 Refills 03/08/15 Levetiracetam (LEVETIRACETAM) 500 Mg Tablet, 500 MG PO BID for seizures 01/17/14 Discontinued Reported Medications Hydralazine Hcl (HYDRALAZINE HCL) 50 Mg Tablet, 1 TAB PO TID, #90 TAB 5 Refills 01/09/18 Bisacodyl (DULCOLAX) 5 Mg Tablet.dr, 4 TAB PO DAILY, #4 TAB 01/09/18 Prednisone (PREDNISONE) 5 Mg Tablet, 5 MG PO DAILY for steroid 01/17/14 Metoclopramide Hcl (METOCLOPRAMIDE HCL) 5 Mg Tablet, 5 MG PO TIDAC for nausea 01/17/14 Aspirin (ASPIRIN) 325 Mg Tablet, 325 MG PO DAILY for blood thinner 01/17/14 Pantoprazole Sodium (PROTONIX ) 40 Mg Tablet., 40 MG PO DAILY for acid reflux 08/20/13 AUGUSTO BRUNER MD Sep 30, 2019 10:04
[2019-09-30 10:45] LABS: CALCIUM 10.2 mg/dL (8.5-10.1); CREATININE 1.3 mg/dL (0.6-1.0); GFR 49.6; POTASSIUM 3.9 mmol/L (3.5-5.1)
[2019-09-30 11:00] VITALS: BP 121/40
--- NOTE | 2019-09-30 11:25 | NUR ---
YINA following. Discussed with RN, pt ready to discharge back to [facility] [place] today. YINA faxed discharge paperwork. Awaiting transportation time. DOMINIC notified. Addendum: 09/30/19 at 1345 by LIN BRAN Transportation set up for 1400. DOMINIC notified.
[2019-09-30 12:56] VITALS: BP 121/40
--- NOTE | 2019-09-30 14:05 | NUR ---
PATIENT LEAVES THE UNIT PER W/C FOR DISCHARGE BACK TO [facility], PATIENT DRESSED IN HER PERSONAL CLOTHING, EMOTIONAL SUPPORT GIVEN, WILL NOTIFY PATIENTS' DAUGHTER OF DISCHARGE.
--- NOTE | 2019-10-01 21:27 | PDOC ---
Provider Note Provider Note Discharge summary dictated.#[id number]. AUGUSTO BRUNER MD Oct 01, 2019 21:27
--- NOTE | 2019-10-01 22:16 | DS ---
DATE OF DISCHARGE: 09/30/2019 REASON FOR ADMISSION TO THE HOSPITAL: Left third toe osteomyelitis. CONSULTATIONS: Dr. Ppoe. PROCEDURES: Partial amputation of the left third toe and arterial Doppler. HOSPITAL COURSE: The patient is a 64-year-old female with history of diabetes, peripheral vascular disease, and kidney transplant. She lives in a snf, developed chronic infection of the left third toe and was admitted to the hospital. X-ray shows osteomyelitis. Arterial Doppler shows good blood flow. The patient was taken to surgery, had a left third toe partial amputation and primary closure. The patient was given IV vancomycin initially and after the surgery changed to Keflex. The patient stayed in the hospital for 48 hours after the surgery and she was discharged back to the snf. She has left sutures in the incision and recommended postop shoe. FINAL DIAGNOSES: 1. Osteomyelitis of the left third toe, had a partial amputation. 2. Diabetes. 3. Hypertension. 4. Coronary artery disease, previous bypass surgery. 5. History of previous strokes DISPOSITION: To the snf. DISCHARGE MEDICATIONS: See MRAD for discharge medications, Keflex for 7 days twice a day. Follow up with vascular to have the sutures removed in 10-14 days. AUGUSTO BRUNER MD DR: DENISE/jeanie JOB#: [id number] / [id number]
== END 2019-09-30 14:05 | DRG 617 ==
LOC: ER 08:47 → 5 SOUTH 12:54
PROVIDERS: ADMIT Internal Medicine; ATTEND Internal Medicine
PROC: 0Y6U0Z3 Detachment at Left 3rd Toe, Low, Open Approach (ICD-10-PCS; principal; 2019-09-26 10:30)
DX: E11.69 Type 2 diabetes mellitus with other specified complication (principal); Z94.0 Kidney transplant status; I13.0 Hypertensive heart and chronic kidney disease with heart failure and stage 1 through stage 4 chronic kidney disease, or unspecified chronic kidney disease; M86.8X7 Other osteomyelitis, ankle and foot; E11.51 Type 2 diabetes mellitus with diabetic peripheral angiopathy without gangrene; I25.10 Atherosclerotic heart disease of native coronary artery without angina pectoris; E78.00 Pure hypercholesterolemia, unspecified; E78.5 Hyperlipidemia, unspecified; J44.9 Chronic obstructive pulmonary disease, unspecified; M19.90 Unspecified osteoarthritis, unspecified site; G89.29 Other chronic pain; N18.9 Chronic kidney disease, unspecified; E11.22 Type 2 diabetes mellitus with diabetic chronic kidney disease; I50.9 Heart failure, unspecified; L08.9 Local infection of the skin and subcutaneous tissue, unspecified; Z86.14 Personal history of Methicillin resistant Staphylococcus aureus infection; Z79.4 Long term (current) use of insulin; Z95.1 Presence of aortocoronary bypass graft; Z89.422 Acquired absence of other left toe(s); Z90.710 Acquired absence of both cervix and uterus; Z86.73 Personal history of transient ischemic attack (TIA), and cerebral infarction without residual deficits; Z83.3 Family history of diabetes mellitus
CPT/HCPCS: 36415; 71045; 73630; 80048; 80053; 80202; 82565; 82962; 83605; 84145; 85025; 85610; 85651; 85730; 86140; 87040; 87071; 87075; 93005; 93923; A7015; J0360; J1100; J1815; J2001; J2405; J2543; J2704; J3010; J3370; J3490; J7040; J7042; J7050; J7120; J7507; J7512; 97116; A4461; G0378; J7030

== ENCOUNTER → 2019-11-07 | Outpatient (CLI) | payer MEDICARE, MEDICAID ==
[~2019-11-07] MED LIST changes: +AMLO10TA8 PO; +ASPI81TA50 PO; +HYDR-2868 PO; +INSU100V2 SQ; +INSU100V6 SQ; +PRED1TAB3 PO
--- NOTE | 2019-11-07 17:11 | RAD ---
CT scan of the chest without contrast 11/07/2019 CLINICAL HISTORY: History of pulmonary nodules. TECHNIQUE: Unenhanced, contiguous, 0.625 mm axial sections were obtained through the chest and upper abdomen. 5 mm reconstructed axial, 3 mm reconstructed sagittal and coronal and 1 mm reconstructed axial images were obtained. One or more of the following individualized dose reduction techniques were utilized for this study: 1. Automated exposure control. 2. Adjustment of the mA and/or kV according to patient size. 3. Use of iterative reconstruction technique. FINDINGS: Comparison study is dated 10/31/2018. Surgical changes are seen consistent with a CABG procedure. Atherosclerotic calcification of the thoracic aorta and its branches is noted. Extensive coronary artery calcifications are seen. The thoracic aorta tapers normally. The heart is mildly enlarged. A 2 cm pleural-based mass is seen within the right upper lobe which is unchanged. Nodular opacities are seen involving the right lower lobe more inferiorly which measure 1 cm in size. There are are unchanged. A 2 mm nodular opacity is seen involving the inferior aspect of the right lower lobe, unchanged. Nodular opacities are seen within the inferior aspect of the left lower lobe which measure 8 mm in size. They are unchanged. No new pulmonary nodule is seen. Subsegmental atelectasis is seen involving the lingula, unchanged. No area of consolidation is noted. A linear band of scarring and/or subsegmental atelectasis is seen involving the right lower lobe. No pleural effusion or pneumothorax is seen. Images through the upper abdomen demonstrate atherosclerotic calcification abdominal aorta and its branches. Degenerative changes are seen involving the thoracic spine. IMPRESSION: Stable CT appearance of the nodular opacities involving both lungs as discussed above. No acute abnormality is seen. Electronically signed by: Alexys Crane MD (11/07/2019 5:08 PM) [facility] [place]
== END | disposition home or self-care (01) ==
LOC: CT 10:49
PROVIDERS: ATTEND Family Medicine
DX: R91.8 Other nonspecific abnormal finding of lung field (principal); J98.11 Atelectasis; I70.0 Atherosclerosis of aorta; I51.7 Cardiomegaly; M47.814 Spondylosis without myelopathy or radiculopathy, thoracic region
CPT/HCPCS: 71250

== ENCOUNTER 2020-01-23 14:34 | Inpatient (IN) | payer MEDICARE, MEDICAID ==
[~2020-01-23] VITALS: Ht 167.6 cm; Wt 68.4 kg
[~2020-01-23 14:34] MED LIST changes: -TACR1CAP4 PO; +TACR1CAP5 PO
[2020-01-23 15:24] LABS: BILIRUBIN,URINE NEGATIVE (NEG); CLARITY,URINE CLEAR; COLOR,URINE YELLOW; NITRITE,URINE NEGATIVE (NEG); PH,URINE 5.5 (<5.0-8.0); PROTEIN,URINE >=300 mg/dL (NEG-TRACE); UROBILINOGEN,URINE 0.2 mg/dL (0.2 mg/dL)
[2020-01-23 15:38] LABS: AMORPHOUS SEDIMENT,UR PRESENT /HPF; BACTERIA,URINE 0 /HPF (0-FEW); RBC,URINE 0 /HPF (0-2); WBC,URINE 0 /HPF (0-4)
--- NOTE | 2020-01-23 15:54 | RAD ---
CT CODE STROKE HEAD WO History:Altered mental status for 4 days Comparison: March 30, 2019 Technique: Noncontrast CT imaging was performed of the head. Exposure: One or more of the following individualized dose reduction techniques were utilized for this examination: 1. Automated exposure control 2. Adjustment of the mA and/or kV according to patient size 3. Use of iterative reconstruction technique. Findings: There is motion degradation. No convincing acute intracranial hemorrhage is identified. There is again fairly large area of encephalomalacia with cortical involvement centered in the right parietal lobe is inferior extent to the occipital lobe. Some other ill-defined low-density of the supratentorial parenchyma also seen previously. There are again old lacunar infarcts of bilateral basal ganglia and also right thalamus. There is atherosclerotic calcification of the intradural vertebral arteries bilaterally and also of the bilateral carotid siphons. Ventricular size is similar, again lateral ventriculomegaly which may be due to component of supratentorial involutional change. There is minimal opacification of the mid left ethmoid air cells are otherwise visualized paranasal sinuses are aerated. Mastoid air cells are aerated. Impression: 1. No acute intracranial hemorrhage is identified. 2. There is again encephalomalacia with cortical involvement centered in the right parietal lobe extending to the right occipital lobe, also old lacunar infarcts as stated. Other ill-defined low-density of the supratentorial parenchyma is nonspecific although may be due to chronic microvascular ischemic disease in a patient this age and given old infarct. Critcal results were discussed with Dr. Randolph at 01/23/2020 3:49 PM. Electronically signed by: Alejandro Ghosh MD (01/23/2020 3:51 PM) [id number]
[2020-01-23 15:55] LABS: BASO % 1 % (0-3); EOS # 0.2 x10^3/uL (0.0-0.7); EOS % 3 % (0-3); HEMATOCRIT 32.3 % (36.0-47.0); HEMOGLOBIN 10.3 g/dL (12.0-15.5); LYMPH # 1.4 x10^3/uL (1.0-4.8); LYMPH % 23 % (24-48); MEAN CORPUSCULAR HEMOGLOBIN 26 pg (25-35); MEAN CORPUSCULAR HGB CONC 32 g/dL (31-37); MEAN CORPUSCULAR VOLUME 81 fL (79-100); MONO # 0.6 x10^3/uL (0.0-1.1); MONO % 10 % (0-9); NEUT # 3.8 x10^3/uL (1.8-7.7); NEUT % 64 % (31-73); PLATELET COUNT 250 x10^3/uL (140-400); RED CELL DISTRIBUTION WIDTH 16.3 % (11.5-14.5); WHITE BLOOD COUNT 5.9 x10^3/uL (4.0-11.0)
--- NOTE | 2020-01-23 15:58 | RAD ---
EXAM: Chest, single view. HISTORY: Shortness of air. COMPARISON: CT dated 11/07/2019 FINDINGS: There is diffuse increased interstitial opacity. There is no consolidation, pleural effusion or pneumothorax. There is a stable prominent cardiac silhouette and evidence of prior CABG. There is a stable circumscribed nodule within the superolateral right lower lobe. The smaller nodules demonstrated on the prior CT are not well seen radiographically. IMPRESSION: 1. Diffuse interstitial infiltrate. Correlate for congestion. 2. Right upper lobe pulmonary nodule. There are additional smaller nodules on the prior CT which are not well seen radiographically. Electronically signed by: Litzy Jennings MD (01/23/2020 3:54 PM) [id number]
[2020-01-23 16:04] LABS: PROTHROMBIN TIME PATIENT 12.8 SEC (11.7-14.0)
[2020-01-23 16:09] LABS: CALCIUM 9.1 mg/dL (8.5-10.1); CREATININE 1.4 mg/dL (0.6-1.0); GFR 45.5; POTASSIUM 4.7 mmol/L (3.5-5.1)
[2020-01-23 16:16] LABS: ALBUMIN 2.7 g/dL (3.4-5.0); ALBUMIN/GLOBULIN RATIO 0.8 (1.0-1.7); MAGNESIUM 1.7 mg/dL (1.8-2.4); TOTAL BILIRUBIN 0.1 mg/dL (0.2-1.0); TOTAL PROTEIN 5.9 g/dL (6.4-8.2)
--- NOTE | 2020-01-23 16:28 | PHYS DOC ---
Past Medical History Past Medical History: Anemia, CAD, CHF, Diabetes-Type II, High Cholesterol, Hypertension, MRSA, Renal Failure, Seizure, Other Additional Past Medical Histor: encephalopathy, chronic pain, epilepsy Past Surgical History: Coronary Bypass Surgery, Hysterectomy, Other Additional Past Surgical Histo: kidney transplant,foot surgery,AV fistula placement and removal Smoking Status: Former Smoker Alcohol Use: None Drug Use: None Adult General Chief Complaint Chief Complaint: ALTERED MENTAL STATUS [facility] HPI Patient is a 64 year old female with history of CAD, CHF, encephalopathy who presents with reported left leg numbness, cough after eating. Unknown time of onset per custodial staff members and patient. Denies extremity weakness. Denies falls, injury, headache, change in vision, difficulty swallowing or pooling of secretions. No other acute symptoms or complaints [] Review of Systems Review of Systems Review of symptoms as per HPI. All other review of symptoms are negative. All other systems were reviewed and found to be within normal limits, except as documented in this note. Current Medications Current Medications Current Medications Medications (Trade) Dose Ordered Sig/Te Start Time Stop Time Status Last Admin Dose Admin Clonidine HCl (Catapres) 0.2 mg 1X ONCE 01/23/20 17:30 01/23/20 17:31 DC 01/23/20 17:38 0.2 MG Allergies Allergies Allergies Coded Allergies Type Severity Reaction Last Updated Verified adhesive tape Allergy Intermediate Hives 11/02/18 Yes No Known Medication Allergies Allergy Unknown 01/09/18 Yes Physical Exam Physical Exam Constitutional: Well developed, well nourished, no acute distress, non-toxic appearance. [] HENT: Normocephalic, atraumatic, bilateral external ears normal, oropharynx moist, no oral exudates, nose normal. [] Eyes: PERRLA, EOMI, conjunctiva normal, no discharge. [] Neck: Normal range of motion, no tenderness, supple, no stridor. [] Cardiovascular:Heart rate regular rhythm, no murmur [] Lungs & Thorax: Bilateral breath sounds clear to auscultation [] Abdomen: Bowel sounds normal, soft, no tenderness. [] Skin: Warm, dry, no erythema, no rash. [] Back: No tenderness. [] Extremities: No tenderness, no cyanosis, no clubbing, ROM intact, no edema. [] Neurologic: Alert and oriented X 3, mild dsyarthria, CN 2-12 grossly intact, decreased motor strength left leg hand no focal deficits noted. [] Psychologic: Affect normal, judgement normal, mood normal. [] Current Patient Data Vital Signs Vital Signs Date Time Temp Pulse Resp B/P (MAP) Pulse Ox O2 Delivery O2 Flow Rate FiO2 01/23/20 17:38 73 198/81 01/23/20 15:00 98.7 16 98 Room Air 98.7 Lab Values Laboratory Tests Test 01/23/20 15:10 01/23/20 15:28 Urine Collection Type U cath Urine Color Yellow Urine Clarity Clear Urine pH 5.5 (<5.0-8.0) Urine Specific [place] 1.015 (1.000-1.030) Urine Protein >=300 mg/dL (NEG-TRACE) Urine Glucose (UA) Negative mg/dL (NEG) Urine Ketones (Stick) Negative mg/dL (NEG) Urine Blood Negative (NEG) Urine Nitrite Negative (NEG) Urine Bilirubin Negative (NEG) Urine Urobilinogen Dipstick 0.2 mg/dL (0.2 mg/dL) Urine Leukocyte Esterase Negative (NEG) Urine RBC 0 /HPF (0-2) Urine WBC 0 /HPF (0-4) Urine Amorphous Sediment Present /HPF Urine Bacteria 0 /HPF (0-FEW) Urine Mucus Mod /LPF White Blood Count 5.9 x10^3/uL (4.0-11.0) Red Blood Count 4.00 x10^6/uL (3.50-5.40) Hemoglobin 10.3 g/dL (12.0-15.5) L Hematocrit 32.3 % (36.0-47.0) L Mean Corpuscular Volume 81 fL (79-100) Mean Corpuscular Hemoglobin 26 pg (25-35) Mean Corpuscular Hemoglobin Concent 32 g/dL (31-37) Red Cell Distribution Width 16.3 % (11.5-14.5) H Platelet Count 250 x10^3/uL (140-400) Neutrophils (%) (Auto) 64 % (31-73) Lymphocytes (%) (Auto) 23 % (24-48) L Monocytes (%) (Auto) 10 % (0-9) H Eosinophils (%) (Auto) 3 % (0-3) Basophils (%) (Auto) 1 % (0-3) Neutrophils # (Auto) 3.8 x10^3/uL (1.8-7.7) Lymphocytes # (Auto) 1.4 x10^3/uL (1.0-4.8) Monocytes # (Auto) 0.6 x10^3/uL (0.0-1.1) Eosinophils # (Auto) 0.2 x10^3/uL (0.0-0.7) Basophils # (Auto) 0.0 x10^3/uL (0.0-0.2) Prothrombin Time 12.8 SEC (11.7-14.0) Prothrombin Time INR 1.0 (0.8-1.1) Activated Partial Thromboplast Time 31 SEC (24-38) Sodium Level 140 mmol/L (136-145) Potassium Level 4.7 mmol/L (3.5-5.1) Chloride Level 106 mmol/L (98-107) Carbon Dioxide Level 24 mmol/L (21-32) Anion Gap 10 (6-14) Blood Urea Nitrogen 30 mg/dL (7-20) H Creatinine 1.4 mg/dL (0.6-1.0) H Estimated GFR (Cockcroft-Gault) 45.5 BUN/Creatinine Ratio 21 (6-20) H Glucose Level 241 mg/dL (70-99) H Calcium Level 9.1 mg/dL (8.5-10.1) Magnesium Level 1.7 mg/dL (1.8-2.4) L Total Bilirubin 0.1 mg/dL (0.2-1.0) L Aspartate Amino Transferase (AST) 16 U/L (15-37) Alanine Aminotransferase (ALT) 23 U/L (14-59) Alkaline Phosphatase 73 U/L (46-116) Troponin I Quantitative < 0.017 ng/mL (0.000-0.055) Total Protein 5.9 g/dL (6.4-8.2) L Albumin 2.7 g/dL (3.4-5.0) L Albumin/Globulin Ratio 0.8 (1.0-1.7) L Thyroid Stimulating Hormone (TSH) 0.714 uIU/mL (0.358-3.74) Laboratory Tests 01/23/20 15:28 Laboratory Tests 01/23/20 15:28 EKG EKG [ekg: reviewed] Radiology/Procedures Radiology/Procedures CT head: NAD per radioogy report [CXR: NAD] Course & Med Decision Making Course & Med Decision Making Pertinent Labs and Imaging studies reviewed. (See chart for details) [No acute intracranial hemorrhage identified. Chronic encephalomalacia with cortical involvement centered in the right parietal lobe extending into the right occipital lobe is noted. Other chronic changes are present and as noted per radiologist] Dragon Disclaimer Dragon Disclaimer This electronic medical record was generated, in whole or in part, using a voice recognition dictation system. Departure Departure Impression: Primary Impression: Left-sided weakness Additional Impression: Cough Disposition: ADMITTED INPATIENT Condition: STABLE Referrals: RANJITH BUENO DO (PCP) Problem Qualifiers RANJITH PARKER DO January 23, 2020 16:28
[2020-01-23] MEDS ORDERED: cloNIDine HCL 0.1 MG TABLET PO ONE (17:30)
[2020-01-23] MEDS ORDERED: IV DEXTROSE 5 %-0.45 % NACL 1,000 ML IV ONE (17:45)
[2020-01-23] MEDS ORDERED: MORPHINE SULFATE 2 MG/ML VIAL. IV PRN (17:45)
[2020-01-23] MEDS ORDERED: ONDANSETRON PF 4 MG/2 ML VIAL. IV PRN (17:45)
--- NOTE | 2020-01-23 20:40 | HP ---
ADMIT DATE: 01/23/2020 CHIEF COMPLAINT: Shortness of breath, mental status change, leg numbness, cough after eating. HISTORY OF PRESENT ILLNESS: The patient is a pleasant 64-year-old female, presented with left leg numbness, a little cough, and a little shortness of breath. Apparently, she was at a facility; unknown time of onset by the staff members. While here in the emergency room, we have noticed that she does have some left-sided weakness. Her hemoglobin is 10.3. She is in kidney failure with creatinine of 1.4 and BUN of 30; chest x-ray showing diffuse interstitial infiltrates and a right upper lobe pulmonary nodule; CT of the head showing encephalomalacia. I discussed the case with the emergency room physician. We are going to admit the patient, rule out COVID-19, and consult Neurology. PAST MEDICAL/SURGICAL HISTORY: Coronary artery disease, anemia, diabetes, hypertension, hyperlipidemia, methicillin-resistant Staphylococcus aureus, renal failure, seizures, encephalopathy, chronic pain, bypass surgery, hysterectomy, kidney transplant, and arteriovenous fistula. ALLERGIES: ADHESIVE. FAMILY HISTORY: Coronary artery disease. SOCIAL HISTORY: She does not drink, smoke, or take drugs. I believe she lives at a facility. MEDICATIONS: Reviewed, please refer to the MRAD. REVIEW OF SYSTEMS: Unable to obtain. PHYSICAL EXAMINATION: VITALS: Within normal limits and are stable. GENERAL: No apparent distress; alert and oriented. HEENT: Normocephalic, atraumatic. External auditory canals are patent. EYES: Extraocular muscles are intact. Pupils are equally round and reactive to light and accommodation. MUSCULOSKELETAL: Well developed, well nourished, good range of motion. ENDOCRINE: No thyromegaly was palpated. LYMPHATICS: No cervical chain or axillary nodes were noted. HEMATOPOIETIC: No bruising. NECK: Supple, no JVD, no thyromegaly was noted. LUNGS: Clear to auscultation in all lung amato without rhonchi or wheezing. HEART: RRR, S1, S2 present. Peripheral pulses intact. No obvious murmurs were noted. ABDOMEN: Soft, nontender. Positive bowel sounds. No organomegaly. Normal bowel sounds. EXTREMITIES: Without any cyanosis, clubbing, or edema. Pedal pulses are intact. Homans sign is negative. NEUROLOGIC: Normal speech, normal tone, A and O x3, moves all extremities, no obvious focal deficits. PSYCHIATRIC: Normal affect, normal mood, stable. SKIN: No ulcerations or rashes, good skin turgor, no jaundice. VASCULAR: Good capillary refill. Neurovascular bundle appears to be intact. ASSESSMENT AND PLAN: Stroke symptoms and abnormal chest x-ray; rule out COVID-19. The patient will be admitted. We will consult Pulmonary Medicine, consult Neurology, and consult Nephrology; home medications; deep vein thrombosis prophylaxis; full code; prognosis guarded. PUMA MCCARTHY DO DR: BILL/jeanie JOB#: [id number] / [id number]
[2020-01-23 21:00] VITALS: BP 198/76
[2020-01-23 23:00] VITALS: BP 179/51
[2020-01-24] VITALS (7 sets, daily range): BP systolic 162–225; BP diastolic 51–77
[2020-01-24] MEDS ORDERED: QUET25TA5 PO (01:34)
[2020-01-24] MEDS ORDERED: TRAZ-118 PO (01:34)
[2020-01-24] MEDS ORDERED: INSU100V6 SQ (01:34)
[2020-01-24] MEDS ORDERED: OLAN10TA3 PO (01:34)
[2020-01-24] MEDS ORDERED: LISI-334 PO (01:34)
[2020-01-24] MEDS ORDERED: PIP/TAZO PER PHARMACY MC PRN (04:30)
[2020-01-24] MEDS ORDERED: PIPERACILLIN/TAZOBACTAM 3.375 GM in IV NORMAL SALINE 50ML 50 ML IV SCH (05:00)
[2020-01-24 05:01] LABS: BASO % 1 % (0-3); EOS # 0.2 x10^3/uL (0.0-0.7); EOS % 4 % (0-3); HEMATOCRIT 34.3 % (36.0-47.0); HEMOGLOBIN 10.8 g/dL (12.0-15.5); LYMPH # 1.6 x10^3/uL (1.0-4.8); LYMPH % 27 % (24-48); MEAN CORPUSCULAR HEMOGLOBIN 25 pg (25-35); MEAN CORPUSCULAR HGB CONC 31 g/dL (31-37); MEAN CORPUSCULAR VOLUME 81 fL (79-100); MONO # 0.6 x10^3/uL (0.0-1.1); MONO % 10 % (0-9); NEUT # 3.4 x10^3/uL (1.8-7.7); NEUT % 59 % (31-73); PLATELET COUNT 271 x10^3/uL (140-400); RED BLOOD COUNT 4.24 x10^6/uL (3.50-5.40); WHITE BLOOD COUNT 5.8 x10^3/uL (4.0-11.0)
[2020-01-24] MEDS: LABETALOL 20 MG/4 ML DISP.SYRIN. IVP PRN ×3 (05:07→21:11)
[2020-01-24] MEDS ORDERED: cloNIDine TTS-3 1 PATCH PATCH.TDWK TD ONE (05:30)
[2020-01-24 06:25] LABS: CALCIUM 9.5 mg/dL (8.5-10.1); CREATININE 1.2 mg/dL (0.6-1.0); GFR 54.4; POTASSIUM 4.1 mmol/L (3.5-5.1)
--- NOTE | 2020-01-24 06:38 | EKG ---
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
--- NOTE | 2020-01-24 06:59 | NUR ---
Patient has orders for covid testing. Report called to Ruma in ICU. Patient transferred to room 112. All belongings with patient. Covid swab done after transfer and brought to lab. Called patients daughter Stacia and notified of patients orders and transfer.
[2020-01-24] MEDS ORDERED: ACETAMINOPHEN 325 MG TABLET. PO PRN (08:30)
[2020-01-24] MEDS ORDERED: ASPIRIN RECTAL 300 MG SUPP. PR PRN (08:30)
[2020-01-24] MEDS ORDERED: ACETAMINOPHEN 650 MG SUPP.RECT. PR PRN (08:30)
--- NOTE | 2020-01-24 08:51 | PDOC ---
[employer] PROGRESS NOTE Chief Complaint Chief Complaint Possible COVID-19 syndrome Stroke symptoms Coronary artery disease, anemia, diabetes, hypertension, hyperlipidemia, methicillin-resistant Staphylococcus aureus, renal failure, seizures, encephalopathy, chronic pain, bypass surgery, hysterectomy, kidney transplant, and arteriovenous fistula. History of Present Illness History of Present Illness 01/24/2020 Patient seen and examined in the COVID-19 ICU She is resting with no apparent distress On O2 nasal cannula Has a facemask on Chart reviewed Discussed with RN Remains quite ill Vitals/I&O Vitals/I&O: Vital Signs Date Time Temp Pulse Resp B/P (MAP) Pulse Ox O2 Delivery O2 Flow Rate FiO2 01/24/20 06:04 75 19 162/51 (88) 99 Room Air 01/23/20 23:00 98.0 98.0 I & O 01/23/20 01/23/20 01/24/20 15:00 23:00 07:00 Intake Total 120 ml Balance 120 ml Physical Exam General: mild distress Heart: Regular rate, Normal S1 Lungs: Crackles Abdomen: No tenderness Extremities: No clubbing, No cyanosis Skin: No rashes Labs Labs: Laboratory Tests Test 01/23/20 15:10 01/23/20 15:28 01/24/20 04:13 Urine Collection Type U cath Urine Color Yellow Urine Clarity Clear Urine pH 5.5 (<5.0-8.0) Urine Specific [place] 1.015 (1.000-1.030) Urine Protein >=300 mg/dL (NEG-TRACE) Urine Glucose (UA) Negative mg/dL (NEG) Urine Ketones (Stick) Negative mg/dL (NEG) Urine Blood Negative (NEG) Urine Nitrite Negative (NEG) Urine Bilirubin Negative (NEG) Urine Urobilinogen Dipstick 0.2 mg/dL (0.2 mg/dL) Urine Leukocyte Esterase Negative (NEG) Urine RBC 0 /HPF (0-2) Urine WBC 0 /HPF (0-4) Urine Amorphous Sediment Present /HPF Urine Bacteria 0 /HPF (0-FEW) Urine Mucus Mod /LPF White Blood Count 5.9 x10^3/uL (4.0-11.0) 5.8 x10^3/uL (4.0-11.0) Red Blood Count 4.00 x10^6/uL (3.50-5.40) 4.24 x10^6/uL (3.50-5.40) Hemoglobin 10.3 g/dL (12.0-15.5) 10.8 g/dL (12.0-15.5) Hematocrit 32.3 % (36.0-47.0) 34.3 % (36.0-47.0) Mean Corpuscular Volume 81 fL (79-100) 81 fL (79-100) Mean Corpuscular Hemoglobin 26 pg (25-35) 25 pg (25-35) Mean Corpuscular Hemoglobin Concent 32 g/dL (31-37) 31 g/dL (31-37) Red Cell Distribution Width 16.3 % (11.5-14.5) 16.0 % (11.5-14.5) Platelet Count 250 x10^3/uL (140-400) 271 x10^3/uL (140-400) Neutrophils (%) (Auto) 64 % (31-73) 59 % (31-73) Lymphocytes (%) (Auto) 23 % (24-48) 27 % (24-48) Monocytes (%) (Auto) 10 % (0-9) 10 % (0-9) Eosinophils (%) (Auto) 3 % (0-3) 4 % (0-3) Basophils (%) (Auto) 1 % (0-3) 1 % (0-3) Neutrophils # (Auto) 3.8 x10^3/uL (1.8-7.7) 3.4 x10^3/uL (1.8-7.7) Lymphocytes # (Auto) 1.4 x10^3/uL (1.0-4.8) 1.6 x10^3/uL (1.0-4.8) Monocytes # (Auto) 0.6 x10^3/uL (0.0-1.1) 0.6 x10^3/uL (0.0-1.1) Eosinophils # (Auto) 0.2 x10^3/uL (0.0-0.7) 0.2 x10^3/uL (0.0-0.7) Basophils # (Auto) 0.0 x10^3/uL (0.0-0.2) 0.0 x10^3/uL (0.0-0.2) Prothrombin Time 12.8 SEC (11.7-14.0) Prothromb Time International Ratio 1.0 (0.8-1.1) Activated Partial Thromboplast Time 31 SEC (24-38) Sodium Level 140 mmol/L (136-145) 142 mmol/L (136-145) Potassium Level 4.7 mmol/L (3.5-5.1) 4.1 mmol/L (3.5-5.1) Chloride Level 106 mmol/L (98-107) 108 mmol/L (98-107) Carbon Dioxide Level 24 mmol/L (21-32) 25 mmol/L (21-32) Anion Gap 10 (6-14) 9 (6-14) Blood Urea Nitrogen 30 mg/dL (7-20) 26 mg/dL (7-20) Creatinine 1.4 mg/dL (0.6-1.0) 1.2 mg/dL (0.6-1.0) Estimated GFR (Cockcroft-Gault) 45.5 54.4 BUN/Creatinine Ratio 21 (6-20) Glucose Level 241 mg/dL (70-99) 259 mg/dL (70-99) Calcium Level 9.1 mg/dL (8.5-10.1) 9.5 mg/dL (8.5-10.1) Magnesium Level 1.7 mg/dL (1.8-2.4) Total Bilirubin 0.1 mg/dL (0.2-1.0) Aspartate Amino Transf (AST/SGOT) 16 U/L (15-37) Alanine Aminotransferase (ALT/SGPT) 23 U/L (14-59) Alkaline Phosphatase 73 U/L (46-116) Troponin I Quantitative < 0.017 ng/mL (0.000-0.055) Total Protein 5.9 g/dL (6.4-8.2) Albumin 2.7 g/dL (3.4-5.0) Albumin/Globulin Ratio 0.8 (1.0-1.7) Thyroid Stimulating Hormone (TSH) 0.714 uIU/mL (0.358-3.74) Assessment and Plan Assessmemt and Plan Problems Medical Problems: (1) Cough Status: Acute (2) Left-sided weakness Status: Acute Possible COVID-19 syndrome Stroke symptoms Coronary artery disease, anemia, diabetes, hypertension, hyperlipidemia, methicillin-resistant Staphylococcus aureus, renal failure, seizures, encephalopathy, chronic pain, bypass surgery, hysterectomy, kidney transplant, and arteriovenous fistula. Plan ICU monitoring await her Covid-19 swab test Await subspecialist input (pulmonary infectious disease cardiology and nephrology) Home meds DVT prophylaxis IV Zosyn O2 per nasal cannula Prognosis guarded Full code Total time 31 minutes Comment Review of Relevant I have reviewed the following items warner (where applicable) has been applied. Medications: Current Medications Medications (Trade) Dose Ordered Sig/Te Route PRN Reason Start Time Stop Time Status Last Admin Dose Admin Clonidine HCl (Catapres) 0.2 mg 1X ONCE PO 01/23/20 17:30 01/23/20 17:31 DC 01/23/20 17:38 Dextrose/Sodium Chloride 1,000 ml @ 100 mls/hr 1X ONCE IV 01/23/20 17:45 01/24/20 03:44 DC 01/23/20 19:24 Pharmacy Consult (C.diff Med Screen By Rx) 1 each 1X ONCE MC 01/24/20 09:00 01/24/20 09:01 01/24/20 08:26 Labetalol HCl (Normodyne Iv Push) 20 mg PRN Q4HRS PRN IVP HYPERTENSION 01/24/20 04:15 01/24/20 05:07 Piperacillin Sod/ Tazobactam Sod 3.375 gm/Sodium Chloride 50 ml @ 100 mls/hr Q6H IV 01/24/20 05:00 01/24/20 05:06 PUMA MCCARTHY III DO January 24, 2020 08:51
[2020-01-24] MEDS ORDERED: C.DIFF MED SCREEN BY RX. MC ONE (09:00)
[2020-01-24] MEDS ORDERED: cloNIDine TTS-3 1 PATCH PATCH.TDWK TD SCH (09:00)
[2020-01-24] MEDS ORDERED: levETIRAcetam 500 MG TABLET PO SCH (09:00)
--- NOTE | 2020-01-24 09:01 | PDOC2 ---
NEUROLOGY CONSULT Date of Admission Date of Admission DATE: 01/24/20 TIME: 08:54 Reason for Consult Reason for Consult: Possible stroke Referring Physician Referring Physician: Dr. Salvador Source Source: Chart review, Patient History of Present Illness History of Present Illness The patient is a 64-year-old right-handed female sentence from the [facility] with possible stroke symptoms of left leg numbness and coughing after eating. She has had strokes in the past and neurology here has seen the patient for metabolic encephalopathy and history of seizures. Indeed she is still on lev etiracetam. For me this morning the patient denies any symptoms of stroke. She feels weak. She wants to eat. She denies any headache, diplopia, or dysarthria. Past Medical History Cardiovascular: CAD, CHF, HTN, [place], Hyperlipidemia, Other (Peripheral vascular disease) CENTRAL NERVOUS SYSTEM: CVA, Periperal neuropathy, Seizure GI: GERD, Hemorrhoids, Other ( colonic polyps, [place] near) Psych: Anxiety, Depression, Schizophrenia Musculoskeletal: low back pain Renal/: Chronic renal insuff, UTI, Urinary Incontinence Endocrine: Diabetes Past Surgical History Past Surgical History: Appendectomy, CABG, Hysterectomy, Other ( left forearm AV fistula, renal transplant, coronary stent) Family History Family History: DM, Other ( Alzheimer's) Social History Social History [facility] resident, no alcohol or tobacco Current Medications Current Medications Current Medications Clonidine HCl (Catapres) 0.2 mg 1X ONCE PO Last administered on 01/23/20at 17:38; Start 01/23/20 at 17:30; Stop 01/23/20 at 17:31; Status DC Ondansetron HCl (Zofran) 4 mg PRN Q8HRS PRN IV NAUSEA/VOMITING; Start 01/23/20 at 17:45; Stop 01/24/20 at 17:44 Morphine Sulfate (Morphine Sulfate) 2 mg PRN Q2HR PRN IV PAIN; Start 01/23/20 at 17:45; Stop 01/24/20 at 17:44 Dextrose/Sodium Chloride 1,000 ml @ 100 mls/hr 1X ONCE IV Last administered on 01/23/20at 19:24; Start 01/23/20 at 17:45; Stop 01/24/20 at 03:44; Status DC Pharmacy Consult (C.diff Med Screen By Rx) 1 each 1X ONCE MC Last administered on 01/24/20at 08:26; Start 01/24/20 at 09:00; Stop 01/24/20 at 09:01 Labetalol HCl (Normodyne Iv Push) 20 mg PRN Q4HRS PRN IVP HYPERTENSION Last administered on 01/24/20at 05:07; Start 01/24/20 at 04:15 Clonidine HCl (Catapres Tts-3) 1 patch WEEKLY TD ; Start 01/24/20 at 09:00; Stop 01/24/20 at 05:21; Status DC Piperacillin Sod/ Tazobactam Sod (Zosyn Per Pharmacy) 1 each PRN DAILY PRN MC SEE COMMENTS; Start 01/24/20 at 04:30 Piperacillin Sod/ Tazobactam Sod 3.375 gm/Sodium Chloride 50 ml @ 100 mls/hr Q6H IV Last administered on 01/24/20at 05:06; Start 01/24/20 at 05:00 Clonidine HCl (Catapres Tts-3) 1 patch WEEKLY TD ; Start 01/30/20 at 09:00 Clonidine HCl (Catapres Tts-3) 1 patch 1X ONCE TD ; Start 01/24/20 at 05:30; Stop 01/24/20 at 05:31; Status DC Levetiracetam (Keppra) 500 mg BID PO ; Start 01/24/20 at 09:00 Acetaminophen (Tylenol) 650 mg PRN Q6HRS PRN PO TEMP > 100.4F; Start 01/24/20 at 08:30 Acetaminophen (Tylenol Supp) 650 mg PRN Q4HRS PRN OH TEMP > 100.4F; Start 01/24/20 at 08:30 Aspirin (Ecotrin) 325 mg DAILYWBKFT PO ; Start 01/25/20 at 08:00 Aspirin (Aspirin Rectal Supp) 300 mg PRN DAILY PRN OH IF UNABLE TO TAKE PO; Start 01/24/20 at 08:30 Active Scripts Active Diflucan (Fluconazole) 100 Mg Tablet 200 Mg PO DAILY Reported Zyprexa (Olanzapine) 10 Mg Tablet 1 Tab PO QHS Trazodone Hcl 50 Mg Tablet 1 Tab PO QHS Seroquel (Quetiapine Fumarate) 25 Mg Tablet 25 Mg PO BID Humalog (Insulin Lispro) 100 Unit/1 Ml Vial 2 Unit SQ DAILYBFRLUN Lisinopril 20 Mg Tablet 1 Tab PO DAILY Acetaminophen 500 Mg Tablet 2 Tab PO PRN Q8HRS PRN 15 Days Prednisone 1 Mg Tablet 2 Mg PO DAILY Humalog (Insulin Lispro) 100 Unit/1 Ml Vial 8 Unit SQ DAILYBFRSUP Humalog (Insulin Lispro) 100 Unit/1 Ml Vial 4 Unit SQ DAILYWBKFT Hydralazine Hcl 25 Mg Tablet 1 Tab PO BID Aspir-Low (Aspirin) 81 Mg Tablet. 1 Tab PO DAILY Prograf (Tacrolimus) 1 Mg Capsule 0.5 Mg PO BID Levemir (Insulin Detemir) 100 Unit/1 Ml Vial 18 Unit SQ QHS Hold for FSBS below 90 and call Nephro-Stacey Tablet (Folic Acid/Vitamin B Comp W-C) 0.8 Mg Tablet 1 Tab PO DAILY Levetiracetam 500 Mg Tablet 500 Mg PO BID Allergies Allergies: Coded Allergies: adhesive tape (Verified Allergy, Intermediate, Hives, 11/02/18) blistered skin this admit No Known Medication Allergies (Verified Allergy, Unknown, 01/09/18) ROS Review of System Negative for fever, chills, weight loss, shortness of breath, chest pain, indige stion, hematochezia, melena, and dysuria. Full 14-point review of systems is negative. Physical Exam Physical Examination General: Well-developed, well-nourished black female in no acute distress HEENT: Normocephalic andatraumatic. Tympanic membranes clear.Temporal arteriespulsatile and nontender.Fundoscopic exam unremarkable Neck: Supple without bruit, no meningismus Musculoskeletal: Stability:see neurologic. Gait exam:see neurologic. Tone:see neurologic.Strength:see neurologic. Neurological: Mental Status: orientation, memory, attention span/concentration, language, fund of knowledge: Knows location, not date. Cranial Nerves:Pupils equal and reactive to light, extraocular movements areintact, visual amato are full to confrontation. Facial sensation is normal. There is no facial asymmetry. Vestibulo-ocular reflex is intact. Palate elevates and tongue protrudes in midline. All other cranial related problems are negative except as mentioned before.Reflexes:1+ and symmetric with flexor plantar responses. Motor:4/5 strength with normal tone and bulk. Coordination:Finger-nose finger and [id number] testing are normal. Rapid alternating movements and fine finger movements are intact. Gait: not tested. Sensory: stocking loss Vitals VITALS Vital Signs Date Time Temp Pulse Resp B/P (MAP) Pulse Ox O2 Delivery O2 Flow Rate FiO2 01/24/20 06:04 75 19 162/51 (88) 99 Room Air 01/23/20 23:00 98.0 98.0 Labs Labs Laboratory Tests Test 01/23/20 15:10 01/23/20 15:28 01/24/20 04:13 Urine Collection Type U cath Urine Color Yellow Urine Clarity Clear Urine pH 5.5 (<5.0-8.0) Urine Specific [place] 1.015 (1.000-1.030) Urine Protein >=300 mg/dL (NEG-TRACE) Urine Glucose (UA) Negative mg/dL (NEG) Urine Ketones (Stick) Negative mg/dL (NEG) Urine Blood Negative (NEG) Urine Nitrite Negative (NEG) Urine Bilirubin Negative (NEG) Urine Urobilinogen Dipstick 0.2 mg/dL (0.2 mg/dL) Urine Leukocyte Esterase Negative (NEG) Urine RBC 0 /HPF (0-2) Urine WBC 0 /HPF (0-4) Urine Amorphous Sediment Present /HPF Urine Bacteria 0 /HPF (0-FEW) Urine Mucus Mod /LPF White Blood Count 5.9 x10^3/uL (4.0-11.0) 5.8 x10^3/uL (4.0-11.0) Red Blood Count 4.00 x10^6/uL (3.50-5.40) 4.24 x10^6/uL (3.50-5.40) Hemoglobin 10.3 g/dL (12.0-15.5) 10.8 g/dL (12.0-15.5) Hematocrit 32.3 % (36.0-47.0) 34.3 % (36.0-47.0) Mean Corpuscular Volume 81 fL (79-100) 81 fL (79-100) Mean Corpuscular Hemoglobin 26 pg (25-35) 25 pg (25-35) Mean Corpuscular Hemoglobin Concent 32 g/dL (31-37) 31 g/dL (31-37) Red Cell Distribution Width 16.3 % (11.5-14.5) 16.0 % (11.5-14.5) Platelet Count 250 x10^3/uL (140-400) 271 x10^3/uL (140-400) Neutrophils (%) (Auto) 64 % (31-73) 59 % (31-73) Lymphocytes (%) (Auto) 23 % (24-48) 27 % (24-48) Monocytes (%) (Auto) 10 % (0-9) 10 % (0-9) Eosinophils (%) (Auto) 3 % (0-3) 4 % (0-3) Basophils (%) (Auto) 1 % (0-3) 1 % (0-3) Neutrophils # (Auto) 3.8 x10^3/uL (1.8-7.7) 3.4 x10^3/uL (1.8-7.7) Lymphocytes # (Auto) 1.4 x10^3/uL (1.0-4.8) 1.6 x10^3/uL (1.0-4.8) Monocytes # (Auto) 0.6 x10^3/uL (0.0-1.1) 0.6 x10^3/uL (0.0-1.1) Eosinophils # (Auto) 0.2 x10^3/uL (0.0-0.7) 0.2 x10^3/uL (0.0-0.7) Basophils # (Auto) 0.0 x10^3/uL (0.0-0.2) 0.0 x10^3/uL (0.0-0.2) Prothrombin Time 12.8 SEC (11.7-14.0) Prothromb Time International Ratio 1.0 (0.8-1.1) Activated Partial Thromboplast Time 31 SEC (24-38) Sodium Level 140 mmol/L (136-145) 142 mmol/L (136-145) Potassium Level 4.7 mmol/L (3.5-5.1) 4.1 mmol/L (3.5-5.1) Chloride Level 106 mmol/L (98-107) 108 mmol/L (98-107) Carbon Dioxide Level 24 mmol/L (21-32) 25 mmol/L (21-32) Anion Gap 10 (6-14) 9 (6-14) Blood Urea Nitrogen 30 mg/dL (7-20) 26 mg/dL (7-20) Creatinine 1.4 mg/dL (0.6-1.0) 1.2 mg/dL (0.6-1.0) Estimated GFR (Cockcroft-Gault) 45.5 54.4 BUN/Creatinine Ratio 21 (6-20) Glucose Level 241 mg/dL (70-99) 259 mg/dL (70-99) Calcium Level 9.1 mg/dL (8.5-10.1) 9.5 mg/dL (8.5-10.1) Magnesium Level 1.7 mg/dL (1.8-2.4) Total Bilirubin 0.1 mg/dL (0.2-1.0) Aspartate Amino Transf (AST/SGOT) 16 U/L (15-37) Alanine Aminotransferase (ALT/SGPT) 23 U/L (14-59) Alkaline Phosphatase 73 U/L (46-116) Troponin I Quantitative < 0.017 ng/mL (0.000-0.055) Total Protein 5.9 g/dL (6.4-8.2) Albumin 2.7 g/dL (3.4-5.0) Albumin/Globulin Ratio 0.8 (1.0-1.7) Thyroid Stimulating Hormone (TSH) 0.714 uIU/mL (0.358-3.74) Laboratory Tests Test 01/23/20 15:10 01/23/20 15:28 01/24/20 04:13 Urine Collection Type U cath Urine Color Yellow Urine Clarity Clear Urine pH 5.5 (<5.0-8.0) Urine Specific [place] 1.015 (1.000-1.030) Urine Protein >=300 mg/dL (NEG-TRACE) Urine Glucose (UA) Negative mg/dL (NEG) Urine Ketones (Stick) Negative mg/dL (NEG) Urine Blood Negative (NEG) Urine Nitrite Negative (NEG) Urine Bilirubin Negative (NEG) Urine Urobilinogen Dipstick 0.2 mg/dL (0.2 mg/dL) Urine Leukocyte Esterase Negative (NEG) Urine RBC 0 /HPF (0-2) Urine WBC 0 /HPF (0-4) Urine Amorphous Sediment Present /HPF Urine Bacteria 0 /HPF (0-FEW) Urine Mucus Mod /LPF White Blood Count 5.9 x10^3/uL (4.0-11.0) 5.8 x10^3/uL (4.0-11.0) Red Blood Count 4.00 x10^6/uL (3.50-5.40) 4.24 x10^6/uL (3.50-5.40) Hemoglobin 10.3 g/dL (12.0-15.5) 10.8 g/dL (12.0-15.5) Hematocrit 32.3 % (36.0-47.0) 34.3 % (36.0-47.0) Mean Corpuscular Volume 81 fL (79-100) 81 fL (79-100) Mean Corpuscular Hemoglobin 26 pg (25-35) 25 pg (25-35) Mean Corpuscular Hemoglobin Concent 32 g/dL (31-37) 31 g/dL (31-37) Red Cell Distribution Width 16.3 % (11.5-14.5) 16.0 % (11.5-14.5) Platelet Count 250 x10^3/uL (140-400) 271 x10^3/uL (140-400) Neutrophils (%) (Auto) 64 % (31-73) 59 % (31-73) Lymphocytes (%) (Auto) 23 % (24-48) 27 % (24-48) Monocytes (%) (Auto) 10 % (0-9) 10 % (0-9) Eosinophils (%) (Auto) 3 % (0-3) 4 % (0-3) Basophils (%) (Auto) 1 % (0-3) 1 % (0-3) Neutrophils # (Auto) 3.8 x10^3/uL (1.8-7.7) 3.4 x10^3/uL (1.8-7.7) Lymphocytes # (Auto) 1.4 x10^3/uL (1.0-4.8) 1.6 x10^3/uL (1.0-4.8) Monocytes # (Auto) 0.6 x10^3/uL (0.0-1.1) 0.6 x10^3/uL (0.0-1.1) Eosinophils # (Auto) 0.2 x10^3/uL (0.0-0.7) 0.2 x10^3/uL (0.0-0.7) Basophils # (Auto) 0.0 x10^3/uL (0.0-0.2) 0.0 x10^3/uL (0.0-0.2) Prothrombin Time 12.8 SEC (11.7-14.0) Prothromb Time International Ratio 1.0 (0.8-1.1) Activated Partial Thromboplast Time 31 SEC (24-38) Sodium Level 140 mmol/L (136-145) 142 mmol/L (136-145) Potassium Level 4.7 mmol/L (3.5-5.1) 4.1 mmol/L (3.5-5.1) Chloride Level 106 mmol/L (98-107) 108 mmol/L (98-107) Carbon Dioxide Level 24 mmol/L (21-32) 25 mmol/L (21-32) Anion Gap 10 (6-14) 9 (6-14) Blood Urea Nitrogen 30 mg/dL (7-20) 26 mg/dL (7-20) Creatinine 1.4 mg/dL (0.6-1.0) 1.2 mg/dL (0.6-1.0) Estimated GFR (Cockcroft-Gault) 45.5 54.4 BUN/Creatinine Ratio 21 (6-20) Glucose Level 241 mg/dL (70-99) 259 mg/dL (70-99) Calcium Level 9.1 mg/dL (8.5-10.1) 9.5 mg/dL (8.5-10.1) Magnesium Level 1.7 mg/dL (1.8-2.4) Total Bilirubin 0.1 mg/dL (0.2-1.0) Aspartate Amino Transf (AST/SGOT) 16 U/L (15-37) Alanine Aminotransferase (ALT/SGPT) 23 U/L (14-59) Alkaline Phosphatase 73 U/L (46-116) Troponin I Quantitative < 0.017 ng/mL (0.000-0.055) Total Protein 5.9 g/dL (6.4-8.2) Albumin 2.7 g/dL (3.4-5.0) Albumin/Globulin Ratio 0.8 (1.0-1.7) Thyroid Stimulating Hormone (TSH) 0.714 uIU/mL (0.358-3.74) Images Images CT CODE STROKE HEAD WO History:Altered mental status for 4 days Comparison: March 30, 2019 Technique: Noncontrast CT imaging was performed of the head. Exposure: One or more of the following individualized dose reduction techniques were utilized for this examination: 1. Automated exposure control 2. Adjustment of the mA and/or kV according to patient size 3. Use of iterative reconstruction technique. Findings: There is motion degradation. No convincing acute intracranial hemorrhage is identified. There is again fairly large area of encephalomalacia with cortical involvement centered in the right parietal lobe is inferior extent to the occipital lobe. Some other ill-defined low-density of the supratentorial parenchyma also seen previously. There are again old lacunar infarcts of bilateral basal ganglia and also right thalamus. There is atherosclerotic calcification of the intradural vertebral arteries bilaterally and also of the bilateral carotid siphons. Ventricular size is similar, again lateral ventriculomegaly which may be due to component of supratentorial involutional change. There is minimal opacification of the mid left ethmoid air cells are otherwise visualized paranasal sinuses are aerated. Mastoid air cells are aerated. Impression: 1. No acute intracranial hemorrhage is identified. 2. There is again encephalomalacia with cortical involvement centered in the right parietal lobe extending to the right occipital lobe, also old lacunar infarcts as stated. Other ill-defined low-density of the supratentorial parenchyma is nonspecific although may be due to chronic microvascular ischemic disease in a patient this age and given old Assessment/Plan Assessment/Plan Impression: My exam is non-focal and negative for any acute stroke. Dementia and multiple psychiatric diagnoses. 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 Diabetic peripheral neuropathy Under investigation for COVID Recommendations: Stroke workup ordered, just starting with MRI and not all the rest the tests, but of course this is all on hold until COVID ruled out. I resumed her levetiracetam Further tests and treatments depending on the results of the MRI. She is on aspirin and statin Thank you for letting the help of the patient's care. ISELA WASHINGTON MD January 24, 2020 09:01
--- NOTE | 2020-01-24 09:29 | PDOC ---
Infectious Disease Note Vital Signs: Vital Signs Vital Signs Date Time Temp Pulse Resp B/P (MAP) Pulse Ox O2 Delivery O2 Flow Rate FiO2 01/24/20 06:04 75 19 162/51 (88) 99 Room Air 01/23/20 23:00 98.0 98.0 Medications: Inpatient Meds: Current Medications Medications (Trade) Dose Ordered Sig/Te Start Time Stop Time Status Last Admin Dose Admin Acetaminophen (Tylenol Supp) 650 mg PRN Q4HRS PRN 01/24/20 08:30 Acetaminophen (Tylenol) 650 mg PRN Q6HRS PRN 01/24/20 08:30 Aspirin (Aspirin Rectal Supp) 300 mg PRN DAILY PRN 01/24/20 08:30 Aspirin (Ecotrin) 325 mg DAILYWBKFT 01/25/20 08:00 Clonidine HCl (Catapres Tts-3) 1 patch 1X ONCE 01/24/20 05:30 01/24/20 05:31 DC Clonidine HCl (Catapres) 0.2 mg 1X ONCE 01/23/20 17:30 01/23/20 17:31 DC 01/23/20 17:38 0.2 MG Dextrose/Sodium Chloride 1,000 ml @ 100 mls/hr 1X ONCE 01/23/20 17:45 01/24/20 03:44 DC 01/23/20 19:24 100 MLS/HR Labetalol HCl (Normodyne Iv Push) 20 mg PRN Q4HRS PRN 01/24/20 04:15 01/24/20 05:07 20 MG Levetiracetam (Keppra) 500 mg BID 01/24/20 09:00 Morphine Sulfate (Morphine Sulfate) 2 mg PRN Q2HR PRN 01/23/20 17:45 01/24/20 17:44 Ondansetron HCl (Zofran) 4 mg PRN Q8HRS PRN 01/23/20 17:45 01/24/20 17:44 Pharmacy Consult (C.diff Med Screen By Rx) 1 each 1X ONCE 01/24/20 09:00 01/24/20 09:01 DC 01/24/20 08:26 1 EACH Piperacillin Sod/ Tazobactam Sod (Zosyn Per Pharmacy) 1 each PRN DAILY PRN 01/24/20 04:30 Piperacillin Sod/ Tazobactam Sod 3.375 gm/Sodium Chloride 50 ml @ 100 mls/hr Q6H 01/24/20 05:00 01/24/20 05:06 100 MLS/HR Labs: Lab Laboratory Tests Test 01/23/20 15:10 01/23/20 15:28 01/24/20 04:13 Urine Collection Type U cath Urine Color Yellow Urine Clarity Clear Urine pH 5.5 (<5.0-8.0) Urine Specific [place] 1.015 (1.000-1.030) Urine Protein >=300 mg/dL (NEG-TRACE) Urine Glucose (UA) Negative mg/dL (NEG) Urine Ketones (Stick) Negative mg/dL (NEG) Urine Blood Negative (NEG) Urine Nitrite Negative (NEG) Urine Bilirubin Negative (NEG) Urine Urobilinogen Dipstick 0.2 mg/dL (0.2 mg/dL) Urine Leukocyte Esterase Negative (NEG) Urine RBC 0 /HPF (0-2) Urine WBC 0 /HPF (0-4) Urine Amorphous Sediment Present /HPF Urine Bacteria 0 /HPF (0-FEW) Urine Mucus Mod /LPF White Blood Count 5.9 x10^3/uL (4.0-11.0) 5.8 x10^3/uL (4.0-11.0) Red Blood Count 4.00 x10^6/uL (3.50-5.40) 4.24 x10^6/uL (3.50-5.40) Hemoglobin 10.3 g/dL (12.0-15.5) 10.8 g/dL (12.0-15.5) Hematocrit 32.3 % (36.0-47.0) 34.3 % (36.0-47.0) Mean Corpuscular Volume 81 fL (79-100) 81 fL (79-100) Mean Corpuscular Hemoglobin 26 pg (25-35) 25 pg (25-35) Mean Corpuscular Hemoglobin Concent 32 g/dL (31-37) 31 g/dL (31-37) Red Cell Distribution Width 16.3 % (11.5-14.5) 16.0 % (11.5-14.5) Platelet Count 250 x10^3/uL (140-400) 271 x10^3/uL (140-400) Neutrophils (%) (Auto) 64 % (31-73) 59 % (31-73) Lymphocytes (%) (Auto) 23 % (24-48) 27 % (24-48) Monocytes (%) (Auto) 10 % (0-9) 10 % (0-9) Eosinophils (%) (Auto) 3 % (0-3) 4 % (0-3) Basophils (%) (Auto) 1 % (0-3) 1 % (0-3) Neutrophils # (Auto) 3.8 x10^3/uL (1.8-7.7) 3.4 x10^3/uL (1.8-7.7) Lymphocytes # (Auto) 1.4 x10^3/uL (1.0-4.8) 1.6 x10^3/uL (1.0-4.8) Monocytes # (Auto) 0.6 x10^3/uL (0.0-1.1) 0.6 x10^3/uL (0.0-1.1) Eosinophils # (Auto) 0.2 x10^3/uL (0.0-0.7) 0.2 x10^3/uL (0.0-0.7) Basophils # (Auto) 0.0 x10^3/uL (0.0-0.2) 0.0 x10^3/uL (0.0-0.2) Prothrombin Time 12.8 SEC (11.7-14.0) Prothromb Time International Ratio 1.0 (0.8-1.1) Activated Partial Thromboplast Time 31 SEC (24-38) Sodium Level 140 mmol/L (136-145) 142 mmol/L (136-145) Potassium Level 4.7 mmol/L (3.5-5.1) 4.1 mmol/L (3.5-5.1) Chloride Level 106 mmol/L (98-107) 108 mmol/L (98-107) Carbon Dioxide Level 24 mmol/L (21-32) 25 mmol/L (21-32) Anion Gap 10 (6-14) 9 (6-14) Blood Urea Nitrogen 30 mg/dL (7-20) 26 mg/dL (7-20) Creatinine 1.4 mg/dL (0.6-1.0) 1.2 mg/dL (0.6-1.0) Estimated GFR (Cockcroft-Gault) 45.5 54.4 BUN/Creatinine Ratio 21 (6-20) Glucose Level 241 mg/dL (70-99) 259 mg/dL (70-99) Calcium Level 9.1 mg/dL (8.5-10.1) 9.5 mg/dL (8.5-10.1) Magnesium Level 1.7 mg/dL (1.8-2.4) Total Bilirubin 0.1 mg/dL (0.2-1.0) Aspartate Amino Transf (AST/SGOT) 16 U/L (15-37) Alanine Aminotransferase (ALT/SGPT) 23 U/L (14-59) Alkaline Phosphatase 73 U/L (46-116) Troponin I Quantitative < 0.017 ng/mL (0.000-0.055) Total Protein 5.9 g/dL (6.4-8.2) Albumin 2.7 g/dL (3.4-5.0) Albumin/Globulin Ratio 0.8 (1.0-1.7) Thyroid Stimulating Hormone (TSH) 0.714 uIU/mL (0.358-3.74) Objective: Assessment: Patient seen and examined Impression Encephalopathy improved History of disseminated cryptococcal infection infection History of renal transplant CKD Diabetes mellitus with neuropathy Peripheral vascular disease Suspect COVID Plan: Plan of Care DC Zosyn Start chronic fluconazole treatment Follow-up labs and cultures Maintain aspiration precaution Continue supportive care Thank you [phone] LINDY LANDON MD January 24, 2020 09:29
--- NOTE | 2020-01-24 09:47 | CONS ---
DATE OF CONSULTATION: 01/24/2020 REFERRING PHYSICIAN: Dr. Salvador. REASON FOR CONSULTATION: Shortness of breath. COVID rule out. HISTORY OF PRESENT ILLNESS: A 64-year-old female residing at [facility] presented with left leg numbness, cough, shortness of breath. The patient was afebrile, on room air. White count was normal. Creatinine of 1.4. Troponin was normal. Head CT was negative for acute intracranial hemorrhage. Chest x-ray showed diffuse interstitial infiltrate, right upper lobe pulmonary nodule. The patient was admitted for suspected COVID and rule out stroke. The patient was started on Zosyn. ID consult has been requested for antibiotic management. This morning, the patient is alert, oriented. Denies any symptoms. Wants to go back home. She is tearful. She denies any fevers, chills, nausea, vomiting, diarrhea, abdominal pain, shortness of breath, sore throat, headache, visual disturbances, difficulty swallowing, symptoms or rash. Denies any joint pain. PAST MEDICAL HISTORY: Coronary artery disease, congestive heart failure, diabetes, hypertension, hyperlipidemia, history of kidney transplant, coronary artery disease, coronary artery bypass grafting, hysterectomy, history of disseminated cryptococcal disease, GERD, history of left first and second toe amputation. PAST SURGICAL HISTORY: Renal transplant, left arm arteriovenous shunt, coronary artery bypass graft, hysterectomy. CURRENT MEDICATIONS: Zosyn. Other medications reviewed in medication list. ALLERGIES: No known drug allergies. SOCIAL HISTORY: Lives at [facility]. No smoking. Has one daughter. FAMILY HISTORY: As per HPI. REVIEW OF SYSTEMS: Negative except for above. The patient is very tearful. PHYSICAL EXAMINATION: VITAL SIGNS: Temperature 98, pulse 75, respiratory rate 19, blood pressure 160/51, oxygen saturation 99% on room air. GENERAL: Alert, oriented, tearful female, sitting at the edge of the bed, in no acute distress. HEENT: Normocephalic, atraumatic, anicteric. No thrush. Oral mucosa moist. NECK: Supple, no JVD. LUNGS: Clear bilaterally. No wheezing. HEART: S1, S2. No gallops, murmurs or rubs. ABDOMEN: Soft, nontender, nondistended, no rebound, no guarding. EXTREMITIES: No edema, no cyanosis, no clubbing. Previous amputation site, left great and second toe scar intact. No draining wounds. CENTRAL NERVOUS SYSTEM: Alert, oriented x 3, grossly nonfocal. PSYCHIATRIC: Cooperative, appropriate mood and affect slightly anxious. DERMATOLOGIC: Warm, dry. No generalized rash. MUSCULOSKELETAL: No joint swelling noted. LABORATORY DATA: WBC 5.8, hemoglobin 10.8, hematocrit 34.3, platelets 271, neutrophil 59. Sodium 142, potassium 4.1, chloride 108, bicarbonate 25, BUN 26, creatinine 1.2, was 1.4, glucose 259, calcium 89.5. Troponin less than 0.017. TSH 0.714. UA negative. COVID-19 pending. IMAGING: Head CT, no acute changes, chronic encephalomalacia with cortical involvement noted. Chest x-ray shows diffuse interstitial infiltrate, right upper lobe pulmonary nodule. The patient has a right pulmonary nodule per chest x-ray from 08/2019. IMPRESSION: 1. Encephalopathy, resolved, suspect COVID-19, test pending at this time. 2. History of epilepsy. 3. Diabetes with peripheral neuropathy. 4. History of disseminated cryptococcus, on fluconazole. 5. Gastroesophageal reflux disease. 6. History of kidney transplant. 7. Peripheral arterial disease. 8. Chronic kidney disease, status post renal transplant. 9. Coronary artery disease. RECOMMENDATIONS: 1. Discontinue Zosyn. 2. Restart fluconazole at 400 mg p.o. daily. Check a cryptococcal antigen. 3. Continue supportive care. 4. Follow up labs and cultures. Thank you for involving us to participate in this patient's care. If you have any questions, do not hesitate to contact me. LINDY LANDON MD DR: EMMA/jeanie JOB#: [id number] / [id number]
[2020-01-24] MEDS ORDERED: ACETAMINOPHEN 500 MG TABLET PO PRN (10:15)
[2020-01-24] MEDS: FLUCONAZOLE 100 MG TABLET. PO SCH (11:00)
--- NOTE | 2020-01-24 11:40 | PDOC2 ---
CONSULT Date of Consult Date of Consult DATE: 01/24/20 TIME: 11:31 Reason for Consult Reason for Consult: KIDNEY TRANSPLANT Referring Physician Referring Physician: SHARI Identification/Chief Complaint Chief Complaint LEFT LEG NUMBNESS AND CONFUSION Source Source: Chart review, Patient History of Present Illness Reason for Visit: THIS IS A 64 YR OLD AA FEMALE WITH HX OF ESRD. SHE HAS HAD A RENAL TX NUMBER OF YEARS AGO AND HAS BEEN STABLE. CR OF 1.4 NOW WITH STABLE ELECTROLYTES AND ACID BASE BALANCE AND THIS IS HER BASELINE. HER IMMUNOSUPPRESSIVE REGIMEN INVOLVES TACROLIMUS AND PREDNISONE. ADMITTED WITH LEFT LEG NUMBNESS. NEUROLOGY EVALUATION ONGOING . ESRD DUE TO HTN Past Medical History Cardiovascular: CAD, CHF, HTN, [place], Hyperlipidemia, Other (Peripheral vascular disease) Pulmonary: COPD, Pneumonia CENTRAL NERVOUS SYSTEM: CVA, Periperal neuropathy, Seizure GI: GERD, Hemorrhoids, Other ( colonic polyps, [place] near) Heme/Onc: Anemia NOS Psych: Anxiety, Depression, Schizophrenia Musculoskeletal: low back pain Infectious disease: Other Renal/: Chronic renal insuff, UTI, Urinary Incontinence Endocrine: Diabetes Past Surgical History Past Surgical History: Appendectomy, CABG, Hysterectomy, Other ( left forearm AV fistula, renal transplant, coronary stent) Family History Family History: Diabetes, Heart Disease Social History No ALCOHOL: none Drugs: None [facility]: [facility] Domestic Violence: Neg Current Problem List Problem List Problems Medical Problems: (1) Cough Status: Acute (2) Left-sided weakness Status: Acute Current Medications Current Medications Current Medications Clonidine HCl (Catapres) 0.2 mg 1X ONCE PO Last administered on 01/23/20at 17:38; Start 01/23/20 at 17:30; Stop 01/23/20 at 17:31; Status DC Ondansetron HCl (Zofran) 4 mg PRN Q8HRS PRN IV NAUSEA/VOMITING; Start 01/23/20 at 17:45; Stop 01/24/20 at 17:44 Morphine Sulfate (Morphine Sulfate) 2 mg PRN Q2HR PRN IV PAIN; Start 01/23/20 at 17:45; Stop 01/24/20 at 17:44 Dextrose/Sodium Chloride 1,000 ml @ 100 mls/hr 1X ONCE IV Last administered on 01/23/20at 19:24; Start 01/23/20 at 17:45; Stop 01/24/20 at 03:44; Status DC Pharmacy Consult (C.diff Med Screen By Rx) 1 each 1X ONCE [facility] Last administered on 01/24/20at 08:26; Start 01/24/20 at 09:00; Stop 01/24/20 at 09:01; Status DC Labetalol HCl (Normodyne Iv Push) 20 mg PRN Q4HRS PRN IVP HYPERTENSION Last administered on 01/24/20at 05:07; Start 01/24/20 at 04:15 Clonidine HCl (Catapres Tts-3) 1 patch WEEKLY TD ; Start 01/24/20 at 09:00; Stop 01/24/20 at 05:21; Status DC Piperacillin Sod/ Tazobactam Sod (Zosyn Per Pharmacy) 1 each PRN DAILY PRN [facility] SEE COMMENTS; Start 01/24/20 at 04:30; Stop 01/24/20 at 09:32; Status DC Piperacillin Sod/ Tazobactam Sod 3.375 gm/Sodium Chloride 50 ml @ 100 mls/hr Q6H IV Last administered on 01/24/20at 05:06; Start 01/24/20 at 05:00; Stop 01/24/20 at 09:30; Status DC Clonidine HCl (Catapres Tts-3) 1 patch WEEKLY TD ; Start 01/30/20 at 09:00 Clonidine HCl (Catapres Tts-3) 1 patch 1X ONCE TD ; Start 01/24/20 at 05:30; Stop 01/24/20 at 05:31; Status DC Levetiracetam (Keppra) 500 mg BID PO ; Start 01/24/20 at 09:00 Acetaminophen (Tylenol) 650 mg PRN Q6HRS PRN PO TEMP > 100.4F; Start 01/24/20 at 08:30 Acetaminophen (Tylenol Supp) 650 mg PRN Q4HRS PRN AR TEMP > 100.4F; Start 01/24/20 at 08:30 Aspirin (Ecotrin) 325 mg DAILYWBKFT PO ; Start 01/25/20 at 08:00 Aspirin (Aspirin Rectal Supp) 300 mg PRN DAILY PRN AR IF UNABLE TO TAKE PO; Start 01/24/20 at 08:30 Lorazepam (Ativan Inj) 2 mg PRN Q4HRS PRN IVP ANXIETY / AGITATION Last administered on 01/24/20at 10:14; Start 01/24/20 at 10:00 Acetaminophen (Tylenol) 1,000 mg PRN Q8HRS PRN PO PAIN; Start 01/24/20 at 10:15 Aspirin (Ecotrin) 81 mg DAILY PO ; Start 01/25/20 at 09:00; Status UNV Vitamin B Complex/ Vitamin C (Vicki-Stacey) 1 tab DAILY PO ; Start 01/25/20 at 09:00 Hydralazine HCl (Apresoline) 25 mg BID PO ; Start 01/24/20 at 21:00 Insulin Human Lispro (HumaLOG) 2 units DAILYWLUN SQ ; Start 01/24/20 at 12:00 Insulin Human Lispro (HumaLOG) 4 units DAILYWBKFT SQ ; Start 01/25/20 at 08:00 Insulin Human Lispro (HumaLOG) 8 units DAILYWSUP SQ ; Start 01/24/20 at 17:00 Lisinopril (Prinivil) 20 mg DAILY PO ; Start 01/24/20 at 12:00 Prednisone (Prednisone) 2 mg DAILY PO ; Start 01/24/20 at 12:00 Quetiapine Fumarate (SEROquel) 25 mg BID PO ; Start 01/24/20 at 12:00 Tacrolimus (Prograf) 0.5 mg BID PO ; Start 01/24/20 at 12:00 Trazodone HCl (Desyrel) 50 mg QHS PO ; Start 01/24/20 at 21:00 Fluconazole (Diflucan) 200 mg DAILY PO ; Start 01/24/20 at 11:00 Insulin Glargine (Lantus Syringe) 18 unit QHS SQ ; Start 01/24/20 at 21:00 Olanzapine (ZyPREXA) 10 mg QHS PO ; Start 01/24/20 at 21:00 Enoxaparin Sodium (Lovenox 40mg Syringe) 40 mg Q24H SQ ; Start 01/24/20 at 11:00 Active Scripts Active Diflucan (Fluconazole) 100 Mg Tablet 200 Mg PO DAILY Reported Zyprexa (Olanzapine) 10 Mg Tablet 1 Tab PO QHS Trazodone Hcl 50 Mg Tablet 1 Tab PO QHS Seroquel (Quetiapine Fumarate) 25 Mg Tablet 25 Mg PO BID Humalog (Insulin Lispro) 100 Unit/1 Ml Vial 2 Unit SQ DAILYBFRLUN Lisinopril 20 Mg Tablet 1 Tab PO DAILY Acetaminophen 500 Mg Tablet 2 Tab PO PRN Q8HRS PRN 15 Days Prednisone 1 Mg Tablet 2 Mg PO DAILY Humalog (Insulin Lispro) 100 Unit/1 Ml Vial 8 Unit SQ DAILYBFRSUP Humalog (Insulin Lispro) 100 Unit/1 Ml Vial 4 Unit SQ DAILYWBKFT Hydralazine Hcl 25 Mg Tablet 1 Tab PO BID Aspir-Low (Aspirin) 81 Mg Tablet.dr 1 Tab PO DAILY Prograf (Tacrolimus) 1 Mg Capsule 0.5 Mg PO BID Levemir (Insulin Detemir) 100 Unit/1 Ml Vial 18 Unit SQ QHS Hold for FSBS below 90 and call Nephro-Stacey Tablet (Folic Acid/Vitamin B Comp W-C) 0.8 Mg Tablet 1 Tab PO DAILY Levetiracetam 500 Mg Tablet 500 Mg PO BID Allergies Allergies: Coded Allergies: adhesive tape (Verified Allergy, Intermediate, Hives, 11/02/18) blistered skin this admit No Known Medication Allergies (Verified Allergy, Unknown, 01/09/18) ROS Review of System IN HPI, OTHERWISE CONFUSED Physical Exam General: Alert, Cooperative, No acute distress HEENT: Atraumatic, PERRLA Lungs: Clear to auscultation Heart: Regular rate Abdomen: Normal bowel sounds, No tenderness Extremities: No clubbing, No cyanosis Skin: No breakdown Neuro: Other (CONFUSED, NO AYMMETRY) Psych/Mental Status: Mood NL MUSCULOSKELETAL: No deformity, No swelling Vitals VITALS Vital Signs Date Time Temp Pulse Resp B/P (MAP) Pulse Ox O2 Delivery O2 Flow Rate FiO2 01/24/20 06:04 75 19 162/51 (88) 99 Room Air 01/23/20 23:00 98.0 98.0 Labs Labs Laboratory Tests Test 01/23/20 15:10 01/23/20 15:28 01/24/20 04:13 Urine Collection Type U cath Urine Color Yellow Urine Clarity Clear Urine pH 5.5 (<5.0-8.0) Urine Specific [place] 1.015 (1.000-1.030) Urine Protein >=300 mg/dL (NEG-TRACE) Urine Glucose (UA) Negative mg/dL (NEG) Urine Ketones (Stick) Negative mg/dL (NEG) Urine Blood Negative (NEG) Urine Nitrite Negative (NEG) Urine Bilirubin Negative (NEG) Urine Urobilinogen Dipstick 0.2 mg/dL (0.2 mg/dL) Urine Leukocyte Esterase Negative (NEG) Urine RBC 0 /HPF (0-2) Urine WBC 0 /HPF (0-4) Urine Amorphous Sediment Present /HPF Urine Bacteria 0 /HPF (0-FEW) Urine Mucus Mod /LPF White Blood Count 5.9 x10^3/uL (4.0-11.0) 5.8 x10^3/uL (4.0-11.0) Red Blood Count 4.00 x10^6/uL (3.50-5.40) 4.24 x10^6/uL (3.50-5.40) Hemoglobin 10.3 g/dL (12.0-15.5) 10.8 g/dL (12.0-15.5) Hematocrit 32.3 % (36.0-47.0) 34.3 % (36.0-47.0) Mean Corpuscular Volume 81 fL (79-100) 81 fL (79-100) Mean Corpuscular Hemoglobin 26 pg (25-35) 25 pg (25-35) Mean Corpuscular Hemoglobin Concent 32 g/dL (31-37) 31 g/dL (31-37) Red Cell Distribution Width 16.3 % (11.5-14.5) 16.0 % (11.5-14.5) Platelet Count 250 x10^3/uL (140-400) 271 x10^3/uL (140-400) Neutrophils (%) (Auto) 64 % (31-73) 59 % (31-73) Lymphocytes (%) (Auto) 23 % (24-48) 27 % (24-48) Monocytes (%) (Auto) 10 % (0-9) 10 % (0-9) Eosinophils (%) (Auto) 3 % (0-3) 4 % (0-3) Basophils (%) (Auto) 1 % (0-3) 1 % (0-3) Neutrophils # (Auto) 3.8 x10^3/uL (1.8-7.7) 3.4 x10^3/uL (1.8-7.7) Lymphocytes # (Auto) 1.4 x10^3/uL (1.0-4.8) 1.6 x10^3/uL (1.0-4.8) Monocytes # (Auto) 0.6 x10^3/uL (0.0-1.1) 0.6 x10^3/uL (0.0-1.1) Eosinophils # (Auto) 0.2 x10^3/uL (0.0-0.7) 0.2 x10^3/uL (0.0-0.7) Basophils # (Auto) 0.0 x10^3/uL (0.0-0.2) 0.0 x10^3/uL (0.0-0.2) Prothrombin Time 12.8 SEC (11.7-14.0) Prothromb Time International Ratio 1.0 (0.8-1.1) Activated Partial Thromboplast Time 31 SEC (24-38) Sodium Level 140 mmol/L (136-145) 142 mmol/L (136-145) Potassium Level 4.7 mmol/L (3.5-5.1) 4.1 mmol/L (3.5-5.1) Chloride Level 106 mmol/L (98-107) 108 mmol/L (98-107) Carbon Dioxide Level 24 mmol/L (21-32) 25 mmol/L (21-32) Anion Gap 10 (6-14) 9 (6-14) Blood Urea Nitrogen 30 mg/dL (7-20) 26 mg/dL (7-20) Creatinine 1.4 mg/dL (0.6-1.0) 1.2 mg/dL (0.6-1.0) Estimated GFR (Cockcroft-Gault) 45.5 54.4 BUN/Creatinine Ratio 21 (6-20) Glucose Level 241 mg/dL (70-99) 259 mg/dL (70-99) Calcium Level 9.1 mg/dL (8.5-10.1) 9.5 mg/dL (8.5-10.1) Magnesium Level 1.7 mg/dL (1.8-2.4) Total Bilirubin 0.1 mg/dL (0.2-1.0) Aspartate Amino Transf (AST/SGOT) 16 U/L (15-37) Alanine Aminotransferase (ALT/SGPT) 23 U/L (14-59) Alkaline Phosphatase 73 U/L (46-116) Troponin I Quantitative < 0.017 ng/mL (0.000-0.055) Total Protein 5.9 g/dL (6.4-8.2) Albumin 2.7 g/dL (3.4-5.0) Albumin/Globulin Ratio 0.8 (1.0-1.7) Thyroid Stimulating Hormone (TSH) 0.714 uIU/mL (0.358-3.74) Laboratory Tests Test 01/23/20 15:10 01/23/20 15:28 01/24/20 04:13 Urine Collection Type U cath Urine Color Yellow Urine Clarity Clear Urine pH 5.5 (<5.0-8.0) Urine Specific [place] 1.015 (1.000-1.030) Urine Protein >=300 mg/dL (NEG-TRACE) Urine Glucose (UA) Negative mg/dL (NEG) Urine Ketones (Stick) Negative mg/dL (NEG) Urine Blood Negative (NEG) Urine Nitrite Negative (NEG) Urine Bilirubin Negative (NEG) Urine Urobilinogen Dipstick 0.2 mg/dL (0.2 mg/dL) Urine Leukocyte Esterase Negative (NEG) Urine RBC 0 /HPF (0-2) Urine WBC 0 /HPF (0-4) Urine Amorphous Sediment Present /HPF Urine Bacteria 0 /HPF (0-FEW) Urine Mucus Mod /LPF White Blood Count 5.9 x10^3/uL (4.0-11.0) 5.8 x10^3/uL (4.0-11.0) Red Blood Count 4.00 x10^6/uL (3.50-5.40) 4.24 x10^6/uL (3.50-5.40) Hemoglobin 10.3 g/dL (12.0-15.5) 10.8 g/dL (12.0-15.5) Hematocrit 32.3 % (36.0-47.0) 34.3 % (36.0-47.0) Mean Corpuscular Volume 81 fL (79-100) 81 fL (79-100) Mean Corpuscular Hemoglobin 26 pg (25-35) 25 pg (25-35) Mean Corpuscular Hemoglobin Concent 32 g/dL (31-37) 31 g/dL (31-37) Red Cell Distribution Width 16.3 % (11.5-14.5) 16.0 % (11.5-14.5) Platelet Count 250 x10^3/uL (140-400) 271 x10^3/uL (140-400) Neutrophils (%) (Auto) 64 % (31-73) 59 % (31-73) Lymphocytes (%) (Auto) 23 % (24-48) 27 % (24-48) Monocytes (%) (Auto) 10 % (0-9) 10 % (0-9) Eosinophils (%) (Auto) 3 % (0-3) 4 % (0-3) Basophils (%) (Auto) 1 % (0-3) 1 % (0-3) Neutrophils # (Auto) 3.8 x10^3/uL (1.8-7.7) 3.4 x10^3/uL (1.8-7.7) Lymphocytes # (Auto) 1.4 x10^3/uL (1.0-4.8) 1.6 x10^3/uL (1.0-4.8) Monocytes # (Auto) 0.6 x10^3/uL (0.0-1.1) 0.6 x10^3/uL (0.0-1.1) Eosinophils # (Auto) 0.2 x10^3/uL (0.0-0.7) 0.2 x10^3/uL (0.0-0.7) Basophils # (Auto) 0.0 x10^3/uL (0.0-0.2) 0.0 x10^3/uL (0.0-0.2) Prothrombin Time 12.8 SEC (11.7-14.0) Prothromb Time International Ratio 1.0 (0.8-1.1) Activated Partial Thromboplast Time 31 SEC (24-38) Sodium Level 140 mmol/L (136-145) 142 mmol/L (136-145) Potassium Level 4.7 mmol/L (3.5-5.1) 4.1 mmol/L (3.5-5.1) Chloride Level 106 mmol/L (98-107) 108 mmol/L (98-107) Carbon Dioxide Level 24 mmol/L (21-32) 25 mmol/L (21-32) Anion Gap 10 (6-14) 9 (6-14) Blood Urea Nitrogen 30 mg/dL (7-20) 26 mg/dL (7-20) Creatinine 1.4 mg/dL (0.6-1.0) 1.2 mg/dL (0.6-1.0) Estimated GFR (Cockcroft-Gault) 45.5 54.4 BUN/Creatinine Ratio 21 (6-20) Glucose Level 241 mg/dL (70-99) 259 mg/dL (70-99) Calcium Level 9.1 mg/dL (8.5-10.1) 9.5 mg/dL (8.5-10.1) Magnesium Level 1.7 mg/dL (1.8-2.4) Total Bilirubin 0.1 mg/dL (0.2-1.0) Aspartate Amino Transf (AST/SGOT) 16 U/L (15-37) Alanine Aminotransferase (ALT/SGPT) 23 U/L (14-59) Alkaline Phosphatase 73 U/L (46-116) Troponin I Quantitative < 0.017 ng/mL (0.000-0.055) Total Protein 5.9 g/dL (6.4-8.2) Albumin 2.7 g/dL (3.4-5.0) Albumin/Globulin Ratio 0.8 (1.0-1.7) Thyroid Stimulating Hormone (TSH) 0.714 uIU/mL (0.358-3.74) Assessment/Plan Assessment/Plan IMP S/P CADAVERIC RENAL TX CHRONIC ALLOGRAFT NEPHROPATHY-CR OF 1.4 CKD STAGE 3 WITH CR AT BASELINE NOW CHRONIC IMMUNOSUPPRESSION HX OF DISSEMINATED CYPTOCOCCUS DM II WITH NEUROPATHY PLAN NEUROLOGY EVAL CONT PREDNISONE CONT PROGRAF CHECK TAC LEVEL-ANTIFUNGALS CAN INCREASE TAC LEVELS HIGH TAC LEVELS CAN CONTRIBUTE TO WORSENING NEUROPATHY AND CONFUSION WILL FOLLOW MO RODRIGUEZ MD January 24, 2020 11:40
[2020-01-24] MEDS: INSULIN LISPRO 300 UNITS/3 ML VIAL. SQ SCH ×2 (12:00→17:00)
[2020-01-24] MEDS: predniSONE 1 MG TABLET PO SCH (12:00)
[2020-01-24] MEDS: QUEtiapine 25 MG TABLET. PO SCH ×3 (12:00→22:21)
[2020-01-24] MEDS: TACROLIMUS 0.5 MG CAPSULE PO SCH ×2 (12:00→21:35)
[2020-01-24] MEDS: LISINOPRIL 20 MG TABLET PO SCH (12:00)
--- NOTE | 2020-01-24 12:26 | CONS ---
DATE OF CONSULTATION: PULMONARY CONSULTATION ATTENDING PHYSICIAN: Dr. Salvador. REASON FOR CONSULTATION: Lung nodule. HISTORY OF PRESENT ILLNESS: The patient is 64-year-old who was brought in from sn[facility] with possible stroke symptoms of left leg numbness and coughing after eating. She had history of stroke in the past and Neurology has seen her for metabolic encephalopathy and history of seizures. She underwent a workup, which revealed a head CT, which did not show any intracranial findings. There was some encephalomalacia. The patient had a chest x-ray, which was reviewed by me. There are some faint interstitial markings. There was a right upper lobe pulmonary nodule. I have also reviewed her CT chest from 2019 as well as 2018 and she has lung nodules, which have been stable since 2018, on the right side. I have been asked to see her for further evaluation. I am unable to obtain much history from the patient. She is confused. She was very restless and she did receive Ativan. In the past, she was seen in 2017 at our office by my partner, Dr. Larsen. PAST MEDICAL HISTORY: Significant for history of seizures, history of coronary artery disease, anemia, diabetes, hypertension, hyperlipidemia, history of methicillin-resistant Staphylococcus aureus, history of renal insufficiency, chronic pain, bypass surgery, hysterectomy, history of lung nodule, stable since 2018. ALLERGIES: ADHESIVE. FAMILY HISTORY: Coronary artery disease. SOCIAL HISTORY: No tobacco history reported. MEDICATIONS: Reviewed as listed in the MRAD including DVT prophylaxis with Lovenox. REVIEW OF SYSTEMS: Unable to obtain from the patient. PHYSICAL EXAMINATION: VITAL SIGNS: Reviewed. Blood pressure on the high side 186/57, pulse ox 99% on room air, afebrile. NECK: Supple. LUNGS: Clear. CARDIOVASCULAR: With a regular rate. ABDOMEN: Soft. EXTREMITIES: With no pitting edema. LABORATORY DATA: Reviewed. White cell count 5.8, hemoglobin 10.8 and platelets are 271. BUN 26 and creatinine of 1.2. IMPRESSION: 1. The patient with stable lung nodules. Latest ct chest is from October 2019.. She has a 2 cm pleural based nodule in the right upper lobe, which is unchanged since 2018. In addition, she also has nodular opacity in the right lower lobe measuring about 1 cm in size. There is a 2 mm nodular opacity in the inferior aspect of the right lower lobe, which is unchanged. All these nodules have been stable since her CAT scan from 2019 as well as a CAT scan of the chest from 12/19/2017. Likely, this is a benign etiology. 2. Encephalopathy. 3. Stroke-like symptoms. Neurology has been consulted. She has prior history of seizures and metabolic encephalopathy and we will follow Neurology recommendations. RECOMMENDATIONS: 1. From a pulmonary standpoint when comparisons were made to the nodules from 2018, they all have been stable. The last CT chest was from 10/2019 and oldest one is from 11/2017. These are likely benign nodules and have been stable for 2 years. I do not see a need for any further followup on CT chest. 2. Follow Neurology recommendation. 3. Follow Nephrology recommendation. 4. Minimize benzodiazepines. 5. Discussed with RN. We will follow along with you. JOAQUIM POLANCO MD DR: VASQUEZ/jeanie JOB#: [id number] / [id number] FERNANDO
[2020-01-24] MEDS: ENOXAPARIN 40 MG/0.4 ML SYRINGE. SQ SCH (13:00)
[2020-01-24] MEDS: levETIRAcetam 500 MG in IV DEXTROSE 5% 100ML 100 ML IV SCH ×2 (14:09→21:11)
[2020-01-24] MEDS: AMINO AC 3%/ELECTROLYTE/GLYCER 1,000 ML IV SCH (14:09)
--- NOTE | 2020-01-24 15:19 | RAD ---
EXAM: Supine AP view of the abdomen DATE: 01/24/2020 2:43 PM INDICATION: Dobbhoff placement, evaluate positioning COMPARISON: No Prior FINDINGS/ IMPRESSION: Dobbhoff tube tip projects over the body of the stomach. Moderate colonic stool content. No bowel obstruction. Evaluation for free intraperitoneal gas is limited on this supine exam. Electronically signed by: Chandler Amezcua MD (01/24/2020 3:17 PM) [id number]
[2020-01-24] MEDS: TACROLIMUS 0.5 MG/ML NG SCH ×2 (15:52→21:12)
[2020-01-24] MEDS: cloNIDine TTS-3 1 PATCH PATCH.TDWK TD SCH (15:53)
--- NOTE | 2020-01-24 16:01 | NUR ---
SS following for discharge planning. SS reviewed pt chart and discussed with pt RN. Pt is C resident from [facility], ; fax [phone]. Pt is currently on room air and COIVD19 test pending. SS will continue to follow for discharge planning.
[2020-01-24] MEDS ORDERED: TACROLIMUS 0.5 MG/ML ONE ×2 (21:00)
[2020-01-24] MEDS ORDERED: INSULIN GLARGINE SYRINGE. SQ SCH (21:00)
[2020-01-24] MEDS: hydrALAZINE 25 MG TABLET PO SCH ×2 (21:35→22:34)
[2020-01-24] MEDS: traZODone 50 MG TABLET. PO SCH (21:35)
[2020-01-24] MEDS: INSULIN GLARGINE SYRINGE. SQ SCH (21:36)
[2020-01-24] MEDS ORDERED: DEXTROSE 50% 25 GM / 50ML DISP.SYRIN. IV PRN (21:45)
[2020-01-24] MEDS: OLANZapine 5 MG TABLET PO SCH (22:20)
[2020-01-25] VITALS (7 sets, daily range): BP systolic 143–192; BP diastolic 54–104
[2020-01-25] MEDS: AMINO AC 3%/ELECTROLYTE/GLYCER 1,000 ML IV SCH ×2 (03:40→18:17)
[2020-01-25 05:22] LABS: CHOLESTEROL/HDL RATIO 3.6
[2020-01-25 05:23] LABS: CALCIUM 9.4 mg/dL (8.5-10.1); CREATININE 1.3 mg/dL (0.6-1.0); GFR 49.6; MAGNESIUM 1.7 mg/dL (1.8-2.4); PHOSPHORUS 3.4 mg/dL (2.6-4.7); POTASSIUM 4.6 mmol/L (3.5-5.1)
[2020-01-25] MEDS: INSULIN LISPRO 300 UNITS/3 ML VIAL. SQ SCH ×3 (08:00→17:00)
[2020-01-25] MEDS: ASPIRIN ENTERIC COATED 325 MG TABLET.DR. PO SCH (08:00)
[2020-01-25] MEDS: predniSONE 1 MG TABLET PO SCH (08:12)
[2020-01-25] MEDS: FLUCONAZOLE 100 MG TABLET. PO SCH (08:12)
[2020-01-25] MEDS: hydrALAZINE 25 MG TABLET PO SCH ×2 (08:12→21:01)
[2020-01-25] MEDS: TACROLIMUS 0.5 MG/ML NG SCH ×2 (08:12→20:03)
[2020-01-25] MEDS: FOLIC/VIT B COMP W-C (RENAL) TABLET. PO SCH (08:13)
[2020-01-25] MEDS: LISINOPRIL 20 MG TABLET PO SCH (08:13)
[2020-01-25] MEDS: TACROLIMUS 0.5 MG CAPSULE PO SCH ×2 (08:13→21:08)
[2020-01-25] MEDS: QUEtiapine 25 MG TABLET. PO SCH ×2 (08:13→21:01)
[2020-01-25] MEDS: levETIRAcetam 500 MG in IV DEXTROSE 5% 100ML 100 ML IV SCH ×2 (08:23→21:01)
[2020-01-25] MEDS: LABETALOL 20 MG/4 ML DISP.SYRIN. IVP PRN ×2 (08:25→12:16)
--- NOTE | 2020-01-25 08:59 | PDOC ---
Infectious Disease Note Subjective Subjective Comfortable No fevers last 24 hrs PPN SpO2 100% on room air ROS ROS as mentioned above Vital Sign Vital Signs Vital Signs Date Time Temp Pulse Resp B/P (MAP) Pulse Ox O2 Delivery O2 Flow Rate FiO2 01/25/20 08:25 79 188/67 01/25/20 07:00 97.5 17 100 Room Air 97.5 Physical Exam PHYSICAL EXAM GENERAL: Sleeping, arouses to name HEENT: Oral mucosa moist. NECK: Supple LUNGS: No accessory muscle use HEART: S1, S2. regular ABDOMEN: Soft, nontender EXTREMITIES: No edema, no cyanosis, no clubbing. Previous amputation site, left great and second toe scar intact. No draining wounds. SKIN: warm to touch. No generalized rash. PIV looks ok Labs Lab Laboratory Tests Test 01/24/20 13:06 01/24/20 17:18 01/24/20 21:20 01/25/20 01:38 Glucose (Fingerstick) 204 mg/dL (70-99) 146 mg/dL (70-99) 75 mg/dL (70-99) 205 mg/dL (70-99) Test 01/25/20 04:30 01/25/20 08:35 Sodium Level 139 mmol/L (136-145) Potassium Level 4.6 mmol/L (3.5-5.1) Chloride Level 107 mmol/L (98-107) Carbon Dioxide Level 23 mmol/L (21-32) Anion Gap 9 (6-14) Blood Urea Nitrogen 26 mg/dL (7-20) Creatinine 1.3 mg/dL (0.6-1.0) Estimated GFR (Cockcroft-Gault) 49.6 Glucose Level 219 mg/dL (70-99) Calcium Level 9.4 mg/dL (8.5-10.1) Phosphorus Level 3.4 mg/dL (2.6-4.7) Magnesium Level 1.7 mg/dL (1.8-2.4) Triglycerides Level 197 mg/dL (0-150) Cholesterol Level 207 mg/dL (0-200) LDL Cholesterol, Calculated 111 mg/dL (0-100) VLDL Cholesterol, Calculated 39 mg/dL (0-40) Non-HDL Cholesterol Calculated 150 mg/dL (0-129) HDL Cholesterol 57 mg/dL (40-60) Cholesterol/HDL Ratio 3.6 Glucose (Fingerstick) 219 mg/dL (70-99) Objective Assessment Encephalopathy, resolved History of epilepsy. Diabetes with peripheral neuropathy. h/o disseminated cryptococcus, on fluconazole. Gastroesophageal reflux disease. History of kidney transplant. Peripheral arterial disease. Chronic kidney disease, status post renal transplant. Coronary artery disease. COVID-19 neg, 01/23 Plan Plan of Care chronic fluconazole treatment Cryto Ag pending Maintain aspiration precaution Supportive care Attending Co-Sign The patient was seen and interviewed as well as examined at the bedside. The zahra barros was reviewed. The case was discussed. Agree with the plan of care. DIAZ DARLING APRN January 25, 2020 08:59 SHEN LANDON MD January 25, 2020 12:41
[2020-01-25] MEDS ORDERED: ASPIRIN ENTERIC COATED 81 MG TABLET.DR. PO SCH (09:00)
--- NOTE | 2020-01-25 12:04 | PDOC ---
PROGRESS NOTES Chief Complaint Chief Complaint A/P: Stroke symptoms Coronary artery disease s/p CABG anemia diabetes, hypertension hyperlipidemia H/o methicillin-resistant Staphylococcus aureus Seizures Acute encephalopathy chronic pain CKD s/p kidney transplant FEN - NPO PPX - lovenox History of Present Illness History of Present Illness Ms Pena is a 64 yo F w/ PMHx seizures, CVA, CAD s/p CABG, anemia, diabetes, hypertension, hyperlipidemia, history of methicillin-resistant Staphylococcus aureus, history of renal insufficiency s/p cadaveric renal transplant on chronic immunosuppression, chronic pain, lung nodules, Osteomyelitis of the left third toe, had a partial amputation. who [facility] with possible stroke symptoms of left leg numbness and coughing after eating. Prior CVA noted in her history and head CT revealed fairly large area of encephalomalacia with cortical involvement centered in the right parietal lobe is inferior extent to the occipital lobe. Some other ill-defined low-density of the supratentorial parenchyma also seen previously. There are again old lacunar infarcts of bilateral basal ganglia and also right thalamus. The patient had a chest x-ray, with faint interstitial markings and a right upper lobe pulmonary nodule. She was initially confused and restless and with her O2 needs and CXR was initially admitted to ICU [place] [address] isolation unit. Consults: Neurology, pulmonology, nephrology 01/23: Patient seen and examined in the [place] [address] ICU, She is resting with no apparent distress, On O2 nasal cannula Seen on med telemetry unit. Afebrile. She has no complaints. Notes her left leg symptoms have resolved. She does have a left facial droop and difficulty swallowing currently and is planning on MRI today. Blood pressure difficult to control as she was n.p.o. just received labetalol IV. Vitals Vitals Vital Signs Date Time Temp Pulse Resp B/P (MAP) Pulse Ox O2 Delivery O2 Flow Rate FiO2 01/25/20 08:25 79 188/67 01/25/20 08:00 Room Air 01/25/20 07:00 97.5 17 100 97.5 Physical Exam Physical Exam GENERAL: Sleeping, arouses to name HEENT: Oral mucosa moist. NECK: Supple LUNGS: No accessory muscle use HEART: S1, S2. regular ABDOMEN: Soft, nontender EXTREMITIES: No edema, no cyanosis, no clubbing. Previous amputation site, left great and second toe scar intact. No draining wounds. SKIN: warm to touch. No generalized rash. PIV looks ok General: Alert, Cooperative, No acute distress Heart: Regular rate Lungs: Crackles Abdomen: Normal bowel sounds, No tenderness Extremities: No clubbing, No cyanosis Skin: No breakdown Labs LABS Laboratory Tests Test 01/24/20 13:06 01/24/20 17:18 01/24/20 21:20 01/25/20 01:38 Glucose (Fingerstick) 204 mg/dL (70-99) 146 mg/dL (70-99) 75 mg/dL (70-99) 205 mg/dL (70-99) Test 01/25/20 04:30 01/25/20 08:35 Sodium Level 139 mmol/L (136-145) Potassium Level 4.6 mmol/L (3.5-5.1) Chloride Level 107 mmol/L (98-107) Carbon Dioxide Level 23 mmol/L (21-32) Anion Gap 9 (6-14) Blood Urea Nitrogen 26 mg/dL (7-20) Creatinine 1.3 mg/dL (0.6-1.0) Estimated GFR (Cockcroft-Gault) 49.6 Glucose Level 219 mg/dL (70-99) Calcium Level 9.4 mg/dL (8.5-10.1) Phosphorus Level 3.4 mg/dL (2.6-4.7) Magnesium Level 1.7 mg/dL (1.8-2.4) Triglycerides Level 197 mg/dL (0-150) Cholesterol Level 207 mg/dL (0-200) LDL Cholesterol, Calculated 111 mg/dL (0-100) VLDL Cholesterol, Calculated 39 mg/dL (0-40) Non-HDL Cholesterol Calculated 150 mg/dL (0-129) HDL Cholesterol 57 mg/dL (40-60) Cholesterol/HDL Ratio 3.6 Glucose (Fingerstick) 219 mg/dL (70-99) Assessment and Plan Assessmemt and Plan Problems Medical Problems: (1) Cough Status: Acute (2) Left-sided weakness Status: Acute Comment Review of Relevant I have reviewed the following items warner (where applicable) has been applied. Labs Laboratory Tests Test 01/23/20 15:10 01/23/20 15:28 01/24/20 04:13 01/24/20 07:00 Urine Collection Type U cath Urine Color Yellow Urine Clarity Clear Urine pH 5.5 (<5.0-8.0) Urine Specific [place] 1.015 (1.000-1.030) Urine Protein >=300 mg/dL (NEG-TRACE) Urine Glucose (UA) Negative mg/dL (NEG) Urine Ketones (Stick) Negative mg/dL (NEG) Urine Blood Negative (NEG) Urine Nitrite Negative (NEG) Urine Bilirubin Negative (NEG) Urine Urobilinogen Dipstick 0.2 mg/dL (0.2 mg/dL) Urine Leukocyte Esterase Negative (NEG) Urine RBC 0 /HPF (0-2) Urine WBC 0 /HPF (0-4) Urine Amorphous Sediment Present /HPF Urine Bacteria 0 /HPF (0-FEW) Urine Mucus Mod /LPF White Blood Count 5.9 x10^3/uL (4.0-11.0) 5.8 x10^3/uL (4.0-11.0) Red Blood Count 4.00 x10^6/uL (3.50-5.40) 4.24 x10^6/uL (3.50-5.40) Hemoglobin 10.3 g/dL (12.0-15.5) 10.8 g/dL (12.0-15.5) Hematocrit 32.3 % (36.0-47.0) 34.3 % (36.0-47.0) Mean Corpuscular Volume 81 fL (79-100) 81 fL (79-100) Mean Corpuscular Hemoglobin 26 pg (25-35) 25 pg (25-35) Mean Corpuscular Hemoglobin Concent 32 g/dL (31-37) 31 g/dL (31-37) Red Cell Distribution Width 16.3 % (11.5-14.5) 16.0 % (11.5-14.5) Platelet Count 250 x10^3/uL (140-400) 271 x10^3/uL (140-400) Neutrophils (%) (Auto) 64 % (31-73) 59 % (31-73) Lymphocytes (%) (Auto) 23 % (24-48) 27 % (24-48) Monocytes (%) (Auto) 10 % (0-9) 10 % (0-9) Eosinophils (%) (Auto) 3 % (0-3) 4 % (0-3) Basophils (%) (Auto) 1 % (0-3) 1 % (0-3) Neutrophils # (Auto) 3.8 x10^3/uL (1.8-7.7) 3.4 x10^3/uL (1.8-7.7) Lymphocytes # (Auto) 1.4 x10^3/uL (1.0-4.8) 1.6 x10^3/uL (1.0-4.8) Monocytes # (Auto) 0.6 x10^3/uL (0.0-1.1) 0.6 x10^3/uL (0.0-1.1) Eosinophils # (Auto) 0.2 x10^3/uL (0.0-0.7) 0.2 x10^3/uL (0.0-0.7) Basophils # (Auto) 0.0 x10^3/uL (0.0-0.2) 0.0 x10^3/uL (0.0-0.2) Prothrombin Time 12.8 SEC (11.7-14.0) Prothromb Time International Ratio 1.0 (0.8-1.1) Activated Partial Thromboplast Time 31 SEC (24-38) Sodium Level 140 mmol/L (136-145) 142 mmol/L (136-145) Potassium Level 4.7 mmol/L (3.5-5.1) 4.1 mmol/L (3.5-5.1) Chloride Level 106 mmol/L (98-107) 108 mmol/L (98-107) Carbon Dioxide Level 24 mmol/L (21-32) 25 mmol/L (21-32) Anion Gap 10 (6-14) 9 (6-14) Blood Urea Nitrogen 30 mg/dL (7-20) 26 mg/dL (7-20) Creatinine 1.4 mg/dL (0.6-1.0) 1.2 mg/dL (0.6-1.0) Estimated GFR (Cockcroft-Gault) 45.5 54.4 BUN/Creatinine Ratio 21 (6-20) Glucose Level 241 mg/dL (70-99) 259 mg/dL (70-99) Calcium Level 9.1 mg/dL (8.5-10.1) 9.5 mg/dL (8.5-10.1) Magnesium Level 1.7 mg/dL (1.8-2.4) Total Bilirubin 0.1 mg/dL (0.2-1.0) Aspartate Amino Transf (AST/SGOT) 16 U/L (15-37) Alanine Aminotransferase (ALT/SGPT) 23 U/L (14-59) Alkaline Phosphatase 73 U/L (46-116) Troponin I Quantitative < 0.017 ng/mL (0.000-0.055) Total Protein 5.9 g/dL (6.4-8.2) Albumin 2.7 g/dL (3.4-5.0) Albumin/Globulin Ratio 0.8 (1.0-1.7) Thyroid Stimulating Hormone (TSH) 0.714 uIU/mL (0.358-3.74) Coronavirus (COVID-19)(PCR) Not detected (NOT DETECT.) Test 01/24/20 13:06 01/24/20 17:18 01/24/20 21:20 01/25/20 01:38 Glucose (Fingerstick) 204 mg/dL (70-99) 146 mg/dL (70-99) 75 mg/dL (70-99) 205 mg/dL (70-99) Test 01/25/20 04:30 01/25/20 08:35 Sodium Level 139 mmol/L (136-145) Potassium Level 4.6 mmol/L (3.5-5.1) Chloride Level 107 mmol/L (98-107) Carbon Dioxide Level 23 mmol/L (21-32) Anion Gap 9 (6-14) Blood Urea Nitrogen 26 mg/dL (7-20) Creatinine 1.3 mg/dL (0.6-1.0) Estimated GFR (Cockcroft-Gault) 49.6 Glucose Level 219 mg/dL (70-99) Calcium Level 9.4 mg/dL (8.5-10.1) Phosphorus Level 3.4 mg/dL (2.6-4.7) Magnesium Level 1.7 mg/dL (1.8-2.4) Triglycerides Level 197 mg/dL (0-150) Cholesterol Level 207 mg/dL (0-200) LDL Cholesterol, Calculated 111 mg/dL (0-100) VLDL Cholesterol, Calculated 39 mg/dL (0-40) Non-HDL Cholesterol Calculated 150 mg/dL (0-129) HDL Cholesterol 57 mg/dL (40-60) Cholesterol/HDL Ratio 3.6 Glucose (Fingerstick) 219 mg/dL (70-99) Laboratory Tests Test 01/24/20 13:06 01/24/20 17:18 01/24/20 21:20 01/25/20 01:38 Glucose (Fingerstick) 204 mg/dL (70-99) 146 mg/dL (70-99) 75 mg/dL (70-99) 205 mg/dL (70-99) Test 01/25/20 04:30 01/25/20 08:35 Sodium Level 139 mmol/L (136-145) Potassium Level 4.6 mmol/L (3.5-5.1) Chloride Level 107 mmol/L (98-107) Carbon Dioxide Level 23 mmol/L (21-32) Anion Gap 9 (6-14) Blood Urea Nitrogen 26 mg/dL (7-20) Creatinine 1.3 mg/dL (0.6-1.0) Estimated GFR (Cockcroft-Gault) 49.6 Glucose Level 219 mg/dL (70-99) Calcium Level 9.4 mg/dL (8.5-10.1) Phosphorus Level 3.4 mg/dL (2.6-4.7) Magnesium Level 1.7 mg/dL (1.8-2.4) Triglycerides Level 197 mg/dL (0-150) Cholesterol Level 207 mg/dL (0-200) LDL Cholesterol, Calculated 111 mg/dL (0-100) VLDL Cholesterol, Calculated 39 mg/dL (0-40) Non-HDL Cholesterol Calculated 150 mg/dL (0-129) HDL Cholesterol 57 mg/dL (40-60) Cholesterol/HDL Ratio 3.6 Glucose (Fingerstick) 219 mg/dL (70-99) Medications Current Medications Clonidine HCl (Catapres) 0.2 mg 1X ONCE PO Last administered on 01/23/20at 17:38; Start 01/23/20 at 17:30; Stop 01/23/20 at 17:31; Status DC Ondansetron HCl (Zofran) 4 mg PRN Q8HRS PRN IV NAUSEA/VOMITING; Start 01/23/20 at 17:45; Stop 01/24/20 at 17:44; Status DC Morphine Sulfate (Morphine Sulfate) 2 mg PRN Q2HR PRN IV PAIN; Start 01/23/20 at 17:45; Stop 01/24/20 at 17:44; Status DC Dextrose/Sodium Chloride 1,000 ml @ 100 mls/hr 1X ONCE IV Last administered on 01/23/20at 19:24; Start 01/23/20 at 17:45; Stop 01/24/20 at 03:44; Status DC Pharmacy Consult (C.diff Med Screen By Rx) 1 each 1X ONCE MC Last administered on 01/24/20at 08:26; Start 01/24/20 at 09:00; Stop 01/24/20 at 09:01; Status DC Labetalol HCl (Normodyne Iv Push) 20 mg PRN Q4HRS PRN IVP HYPERTENSION Last administered on 01/25/20at 08:25; Start 01/24/20 at 04:15 Clonidine HCl (Catapres Tts-3) 1 patch WEEKLY TD ; Start 01/24/20 at 09:00; Stop 01/24/20 at 05:21; Status DC Piperacillin Sod/ Tazobactam Sod (Zosyn Per Pharmacy) 1 each PRN DAILY PRN MC SEE COMMENTS; Start 01/24/20 at 04:30; Stop 01/24/20 at 09:32; Status DC Piperacillin Sod/ Tazobactam Sod 3.375 gm/Sodium Chloride 50 ml @ 100 mls/hr Q6H IV Last administered on 01/24/20at 05:06; Start 01/24/20 at 05:00; Stop 01/24/20 at 09:30; Status DC Clonidine HCl (Catapres Tts-3) 1 patch WEEKLY TD Last administered on 01/24/20at 15:53; Start 01/24/20 at 16:00 Clonidine HCl (Catapres Tts-3) 1 patch 1X ONCE TD ; Start 01/24/20 at 05:30; Stop 01/24/20 at 05:31; Status DC Levetiracetam (Keppra) 500 mg BID PO ; Start 01/24/20 at 09:00; Status Cancel Acetaminophen (Tylenol) 650 mg PRN Q6HRS PRN PO TEMP > 100.4F; Start 5/29/20 at 08:30 Acetaminophen (Tylenol Supp) 650 mg PRN Q4HRS PRN TX TEMP > 100.4F; Start 01/24/20 at 08:30 Aspirin (Ecotrin) 325 mg DAILYWBKFT PO ; Start 01/25/20 at 08:00 Aspirin (Aspirin Rectal Supp) 300 mg PRN DAILY PRN TX IF UNABLE TO TAKE PO; Start 01/24/20 at 08:30 Lorazepam (Ativan Inj) 2 mg PRN Q4HRS PRN IVP ANXIETY / AGITATION Last administered on 01/24/20at 10:14; Start 01/24/20 at 10:00; Stop 01/24/20 at 16:3 5; Status DC Acetaminophen (Tylenol) 1,000 mg PRN Q8HRS PRN PO PAIN; Start 01/24/20 at 10:15 Aspirin (Ecotrin) 81 mg DAILY PO ; Start 01/25/20 at 09:00; Status UNV Vitamin B Complex/ Vitamin C (Vicki-Stacey) 1 tab DAILY PO ; Start 01/25/20 at 09:00 Hydralazine HCl (Apresoline) 25 mg BID PO Last administered on 01/24/20at 22:34; Start 01/24/20 at 21:00 Insulin Human Lispro (HumaLOG) 2 units DAILYWLUN SQ Last administered on 01/24/20at 12:00; Start 01/24/20 at 12:00 Insulin Human Lispro (HumaLOG) 4 units DAILYWBKFT SQ ; Start 01/25/20 at 08:00 Insulin Human Lispro (HumaLOG) 8 units DAILYWSUP SQ Last administered on 01/24/20at 17:00; Start 01/24/20 at 17:00 Lisinopril (Prinivil) 20 mg DAILY PO ; Start 01/24/20 at 12:00 Prednisone (Prednisone) 2 mg DAILY PO ; Start 01/24/20 at 12:00 Quetiapine Fumarate (SEROquel) 25 mg BID PO Last administered on 01/24/20at 22:21; Start 01/24/20 at 12:00 Tacrolimus (Prograf) 0.5 mg BID PO ; Start 01/24/20 at 12:00 Trazodone HCl (Desyrel) 50 mg QHS PO ; Start 01/24/20 at 21:00 Fluconazole (Diflucan) 200 mg DAILY PO ; Start 01/24/20 at 11:00 Insulin Glargine (Lantus Syringe) 18 unit QHS SQ ; Start 01/24/20 at 21:00; Stop 01/24/20 at 20:59; Status DC Olanzapine (ZyPREXA) 10 mg QHS PO Last administered on 01/24/20at 22:20; Start 01/24/20 at 21:00 Enoxaparin Sodium (Lovenox 40mg Syringe) 40 mg Q24H SQ Last administered on 01/24/20at 13:00; Start 01/24/20 at 11:00 Amino Acids/ Glycerin/ Electrolytes 1,000 ml @ 75 mls/hr [id number] IV Last administered on 01/25/20at 03:40; Start 01/24/20 at 13:45 Levetiracetam 500 mg/Dextrose 105 ml @ 420 mls/hr Q12HR IV Last administered on 01/25/20at 08:23; Start 01/24/20 at 13:45 Non-Formulary Medication 0.5 ea BID NG Last administered on 01/24/20at 21:12; Start 01/24/20 at 15:00 Lorazepam (Ativan Inj) 0.5 mg PRN Q4HRS PRN IVP ANXIETY / AGITATION Last administered on 01/25/20at 06:34; Start 01/24/20 at 16:45 Insulin Glargine (Lantus Syringe) 18 unit QHS SQ ; Start 01/24/20 at 21:00 Dextrose (Dextrose 50%-Water Syringe) 12.5 gm PRN Q15MIN PRN IV SEE COMMENTS; Start 01/24/20 at 21:45 Enalaprilat (Vasotec Inj) 1.25 mg PRN Q6HRS PRN IVP HYPERTENSION; Start 01/25/20 at 12:00; Status UNV Active Scripts Active Diflucan (Fluconazole) 100 Mg Tablet 200 Mg PO DAILY Reported Zyprexa (Olanzapine) 10 Mg Tablet 1 Tab PO QHS Trazodone Hcl 50 Mg Tablet 1 Tab PO QHS Seroquel (Quetiapine Fumarate) 25 Mg Tablet 25 Mg PO BID Humalog (Insulin Lispro) 100 Unit/1 Ml Vial 2 Unit SQ DAILYBFRLUN Lisinopril 20 Mg Tablet 1 Tab PO DAILY Acetaminophen 500 Mg Tablet 2 Tab PO PRN Q8HRS PRN 15 Days Prednisone 1 Mg Tablet 2 Mg PO DAILY Humalog (Insulin Lispro) 100 Unit/1 Ml Vial 8 Unit SQ DAILYBFRSUP Humalog (Insulin Lispro) 100 Unit/1 Ml Vial 4 Unit SQ DAILYWBKFT Hydralazine Hcl 25 Mg Tablet 1 Tab PO BID Aspir-Low (Aspirin) 81 Mg Tablet. 1 Tab PO DAILY Prograf (Tacrolimus) 1 Mg Capsule 0.5 Mg PO BID Levemir (Insulin Detemir) 100 Unit/1 Ml Vial 18 Unit SQ QHS Hold for FSBS below 90 and call Nephro-Stacey Tablet (Folic Acid/Vitamin B Comp W-C) 0.8 Mg Tablet 1 Tab PO DAILY Levetiracetam 500 Mg Tablet 500 Mg PO BID Vitals/I & O Vital Sign - Last 24 Hours 01/24/20 01/24/20 01/24/20 01/24/20 14:10 15:00 19:00 20:00 Temp 98.2 97.8 98.2 97.8 Pulse 74 73 71 Resp 16 18 B/P (MAP) 186/57 172/67 (102) 165/57 (93) Pulse Ox 100 100 O2 Delivery Room Air Room Air Room Air 01/24/20 01/24/20 01/24/20 01/25/20 21:11 22:34 22:38 03:24 Temp 98.1 98.3 98.1 98.3 Pulse 71 71 71 75 Resp 18 18 B/P (MAP) 165/57 177/56 177/56 (96) 143/66 (91) Pulse Ox 99 100 O2 Delivery Room Air Room Air 01/25/20 01/25/20 01/25/20 07:00 08:00 08:25 Temp 97.5 97.5 Pulse 79 79 Resp 17 B/P (MAP) 188/67 (107) 188/67 Pulse Ox 100 O2 Delivery Room Air Room Air Intake and Output 01/24/20 01/24/20 01/25/20 15:00 23:00 07:00 Intake Total 135 ml 0 ml Balance 135 ml 0 ml Nutrition Consultation Dietary Evaluation: Recommendations by RD: Dietary education by RD, Increase Calorie Intake, PPN/TPN Comments: Continue w/PPN for short-term non-oral nutrition needs while awaiting BEHAVIORAL HEALTH TECH eval REC renal/ADA diet w/supplements per pt request/preference If unable to advance diet within 24 - 48 hrs, recommend TFs via dobhoff per following: Nepro@goal rate 35 ml/hr w/175 ml water flushes q4 hrs or flushes per MD Expected Outcomes/Goals: Diet advancement Malnutrition Findings: Body Fat Depletion (Non Severe: Mild Depletion Weight Status: Appropriate SMITA VERGARA MD January 25, 2020 12:04
--- NOTE | 2020-01-25 12:23 | PDOC ---
PULMONARY PROGRESS NOTES Subjective sob better, has occ cough, on ra Vitals Vital Signs Date Time Temp Pulse Resp B/P (MAP) Pulse Ox O2 Delivery O2 Flow Rate FiO2 01/25/20 12:16 77 192/104 01/25/20 11:56 97.7 16 98 Room Air 97.7 General: Alert, No acute distress Lungs: Crackles Cardiovascular: S1, S2 Abdomen: Soft, Non-tender Neuro Exam: Alert Extremities: Other Skin: Warm Labs Laboratory Tests Test 01/23/20 15:10 01/23/20 15:28 01/24/20 04:13 01/24/20 07:00 Urine Collection Type U cath Urine Color Yellow Urine Clarity Clear Urine pH 5.5 (<5.0-8.0) Urine Specific [place] 1.015 (1.000-1.030) Urine Protein >=300 mg/dL (NEG-TRACE) Urine Glucose (UA) Negative mg/dL (NEG) Urine Ketones (Stick) Negative mg/dL (NEG) Urine Blood Negative (NEG) Urine Nitrite Negative (NEG) Urine Bilirubin Negative (NEG) Urine Urobilinogen Dipstick 0.2 mg/dL (0.2 mg/dL) Urine Leukocyte Esterase Negative (NEG) Urine RBC 0 /HPF (0-2) Urine WBC 0 /HPF (0-4) Urine Amorphous Sediment Present /HPF Urine Bacteria 0 /HPF (0-FEW) Urine Mucus Mod /LPF White Blood Count 5.9 x10^3/uL (4.0-11.0) 5.8 x10^3/uL (4.0-11.0) Red Blood Count 4.00 x10^6/uL (3.50-5.40) 4.24 x10^6/uL (3.50-5.40) Hemoglobin 10.3 g/dL (12.0-15.5) 10.8 g/dL (12.0-15.5) Hematocrit 32.3 % (36.0-47.0) 34.3 % (36.0-47.0) Mean Corpuscular Volume 81 fL (79-100) 81 fL (79-100) Mean Corpuscular Hemoglobin 26 pg (25-35) 25 pg (25-35) Mean Corpuscular Hemoglobin Concent 32 g/dL (31-37) 31 g/dL (31-37) Red Cell Distribution Width 16.3 % (11.5-14.5) 16.0 % (11.5-14.5) Platelet Count 250 x10^3/uL (140-400) 271 x10^3/uL (140-400) Neutrophils (%) (Auto) 64 % (31-73) 59 % (31-73) Lymphocytes (%) (Auto) 23 % (24-48) 27 % (24-48) Monocytes (%) (Auto) 10 % (0-9) 10 % (0-9) Eosinophils (%) (Auto) 3 % (0-3) 4 % (0-3) Basophils (%) (Auto) 1 % (0-3) 1 % (0-3) Neutrophils # (Auto) 3.8 x10^3/uL (1.8-7.7) 3.4 x10^3/uL (1.8-7.7) Lymphocytes # (Auto) 1.4 x10^3/uL (1.0-4.8) 1.6 x10^3/uL (1.0-4.8) Monocytes # (Auto) 0.6 x10^3/uL (0.0-1.1) 0.6 x10^3/uL (0.0-1.1) Eosinophils # (Auto) 0.2 x10^3/uL (0.0-0.7) 0.2 x10^3/uL (0.0-0.7) Basophils # (Auto) 0.0 x10^3/uL (0.0-0.2) 0.0 x10^3/uL (0.0-0.2) Prothrombin Time 12.8 SEC (11.7-14.0) Prothromb Time International Ratio 1.0 (0.8-1.1) Activated Partial Thromboplast Time 31 SEC (24-38) Sodium Level 140 mmol/L (136-145) 142 mmol/L (136-145) Potassium Level 4.7 mmol/L (3.5-5.1) 4.1 mmol/L (3.5-5.1) Chloride Level 106 mmol/L (98-107) 108 mmol/L (98-107) Carbon Dioxide Level 24 mmol/L (21-32) 25 mmol/L (21-32) Anion Gap 10 (6-14) 9 (6-14) Blood Urea Nitrogen 30 mg/dL (7-20) 26 mg/dL (7-20) Creatinine 1.4 mg/dL (0.6-1.0) 1.2 mg/dL (0.6-1.0) Estimated GFR (Cockcroft-Gault) 45.5 54.4 BUN/Creatinine Ratio 21 (6-20) Glucose Level 241 mg/dL (70-99) 259 mg/dL (70-99) Calcium Level 9.1 mg/dL (8.5-10.1) 9.5 mg/dL (8.5-10.1) Magnesium Level 1.7 mg/dL (1.8-2.4) Total Bilirubin 0.1 mg/dL (0.2-1.0) Aspartate Amino Transf (AST/SGOT) 16 U/L (15-37) Alanine Aminotransferase (ALT/SGPT) 23 U/L (14-59) Alkaline Phosphatase 73 U/L (46-116) Troponin I Quantitative < 0.017 ng/mL (0.000-0.055) Total Protein 5.9 g/dL (6.4-8.2) Albumin 2.7 g/dL (3.4-5.0) Albumin/Globulin Ratio 0.8 (1.0-1.7) Thyroid Stimulating Hormone (TSH) 0.714 uIU/mL (0.358-3.74) Coronavirus (COVID-19)(PCR) Not detected (NOT DETECT.) Test 01/24/20 13:06 01/24/20 17:18 01/24/20 21:20 01/25/20 01:38 Glucose (Fingerstick) 204 mg/dL (70-99) 146 mg/dL (70-99) 75 mg/dL (70-99) 205 mg/dL (70-99) Test 01/25/20 04:30 01/25/20 08:35 Sodium Level 139 mmol/L (136-145) Potassium Level 4.6 mmol/L (3.5-5.1) Chloride Level 107 mmol/L (98-107) Carbon Dioxide Level 23 mmol/L (21-32) Anion Gap 9 (6-14) Blood Urea Nitrogen 26 mg/dL (7-20) Creatinine 1.3 mg/dL (0.6-1.0) Estimated GFR (Cockcroft-Gault) 49.6 Glucose Level 219 mg/dL (70-99) Calcium Level 9.4 mg/dL (8.5-10.1) Phosphorus Level 3.4 mg/dL (2.6-4.7) Magnesium Level 1.7 mg/dL (1.8-2.4) Triglycerides Level 197 mg/dL (0-150) Cholesterol Level 207 mg/dL (0-200) LDL Cholesterol, Calculated 111 mg/dL (0-100) VLDL Cholesterol, Calculated 39 mg/dL (0-40) Non-HDL Cholesterol Calculated 150 mg/dL (0-129) HDL Cholesterol 57 mg/dL (40-60) Cholesterol/HDL Ratio 3.6 Glucose (Fingerstick) 219 mg/dL (70-99) Laboratory Tests Test 01/24/20 13:06 01/24/20 17:18 01/24/20 21:20 01/25/20 01:38 Glucose (Fingerstick) 204 mg/dL (70-99) 146 mg/dL (70-99) 75 mg/dL (70-99) 205 mg/dL (70-99) Test 01/25/20 04:30 01/25/20 08:35 Sodium Level 139 mmol/L (136-145) Potassium Level 4.6 mmol/L (3.5-5.1) Chloride Level 107 mmol/L (98-107) Carbon Dioxide Level 23 mmol/L (21-32) Anion Gap 9 (6-14) Blood Urea Nitrogen 26 mg/dL (7-20) Creatinine 1.3 mg/dL (0.6-1.0) Estimated GFR (Cockcroft-Gault) 49.6 Glucose Level 219 mg/dL (70-99) Calcium Level 9.4 mg/dL (8.5-10.1) Phosphorus Level 3.4 mg/dL (2.6-4.7) Magnesium Level 1.7 mg/dL (1.8-2.4) Triglycerides Level 197 mg/dL (0-150) Cholesterol Level 207 mg/dL (0-200) LDL Cholesterol, Calculated 111 mg/dL (0-100) VLDL Cholesterol, Calculated 39 mg/dL (0-40) Non-HDL Cholesterol Calculated 150 mg/dL (0-129) HDL Cholesterol 57 mg/dL (40-60) Cholesterol/HDL Ratio 3.6 Glucose (Fingerstick) 219 mg/dL (70-99) Medications Active Scripts Medications Dose Route/Sig Max Daily Dose Days Date Category Dose Instructions Zyprexa (Olanzapine) 10 Mg Tablet 1 Tab PO QHS 01/24/20 Reported Trazodone Hcl 50 Mg Tablet 1 Tab PO QHS 01/24/20 Reported Seroquel (Quetiapine Fumarate) 25 Mg Tablet 25 Mg PO BID 01/24/20 Reported Humalog (Insulin Lispro) 100 Unit/1 Ml Vial 2 Unit SQ [id number] 01/24/20 Reported Lisinopril 20 Mg Tablet 1 Tab PO DAILY 01/24/20 Reported Acetaminophen 500 Mg Tablet 2 Tab PO PRN Q8HRS PRN 15 09/25/19 Reported Prednisone 1 Mg Tablet 2 Mg PO DAILY 09/25/19 Reported Humalog (Insulin Lispro) 100 Unit/1 Ml Vial 8 Unit SQ [id number] 09/25/19 Reported Humalog (Insulin Lispro) 100 Unit/1 Ml Vial 4 Unit SQ [id number] 09/25/19 Reported Hydralazine Hcl 25 Mg Tablet 1 Tab PO BID 09/25/19 Reported Aspir-Low (Aspirin) 81 Mg Tablet.dr 1 Tab PO DAILY 09/25/19 Reported Diflucan (Fluconazole) 100 Mg Tablet 200 Mg PO DAILY 04/30/16 Rx Prograf (Tacrolimus) 1 Mg Capsule 0.5 Mg PO BID 03/22/16 Reported Levemir (Insulin Detemir) 100 Unit/1 Ml Vial 18 Unit SQ QHS 02/25/16 Reported Hold for FSBS below 90 and call Nephro-Stacey Tablet (Folic Acid/Vitamin B Comp W-C) 0.8 Mg Tablet 1 Tab PO DAILY 02/25/16 Reported Levetiracetam 500 Mg Tablet 500 Mg PO BID 01/17/14 Reported Impression . IMPRESSION: 1. The patient with stable lung nodules. Latest ct chest is from October 2019.. She has a 2 cm pleural based nodule in the right upper lobe, which is unchanged since 2018. In addition, she also has nodular opacity in the right lower lobe measuring about 1 cm in size. There is a 2 mm nodular opacity in the inferior aspect of the right lower lobe, which is unchanged. All these nodules have been stable since her CAT scan from 2019 as well as a CAT scan of the chest from 12/19/2017. Likely, this is a benign etiology. 2. Encephalopathy. 3. Stroke-like symptoms. Neurology has been consulted. She has prior history of seizures and metabolic encephalopathy and we will follow Neurology recommendations. Plan . RECOMMENDATIONS: 1. From a pulmonary standpoint when comparisons were made to the nodules from 2018, they all have been stable. The last CT chest was from 10/2019 and oldest one is from 11/2017. These are likely benign nodules and have been stable for 2 years. no need for any further followup on CT chest. 2. Follow Neurology recommendation. mri 3. Follow Nephrology recommendation. 4. Minimize benzodiazepines. 5. covid19 neg Discussed with RN. We will follow along with you. SPRING KESSLER MD January 25, 2020 12:23
--- NOTE | 2020-01-25 13:06 | PDOC ---
SUBJECTIVE ROS Transferred out of ICU CoVid negative OBJECTIVE Vital Signs Vital Signs Date Time Temp Pulse Resp B/P (MAP) Pulse Ox O2 Delivery O2 Flow Rate FiO2 01/25/20 12:16 77 192/104 01/25/20 11:56 97.7 16 98 Room Air 97.7 I & 0 Intake and Output 01/25/20 07:00 Intake Total 135 ml Balance 135 ml Intake Oral 0 ml IV Total 105 ml Tube Feeding 30 ml # Voids 2 PHYSICAL EXAM Physical Exam GENERAL: Sleeping, arouses to name HEENT: Oral mucosa moist. NECK: Supple LUNGS: No accessory muscle use HEART: S1, S2. 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 CVA - Per primary/Neurology Coronary artery disease s/p CABG anemia COMMENT/RELEVANT DATA Meds Current Medications Medications (Trade) Dose Ordered Sig/Te Start Time Stop Time Status Last Admin Dose Admin Acetaminophen (Tylenol Supp) 650 mg PRN Q4HRS PRN 01/24/20 08:30 Acetaminophen (Tylenol) 1,000 mg PRN Q8HRS PRN 01/24/20 10:15 Amino Acids/ Glycerin/ Electrolytes 1,000 ml @ 75 mls/hr [id number] 01/24/20 13:45 01/25/20 03:40 75 MLS/HR Aspirin (Aspirin Rectal Supp) 300 mg PRN DAILY PRN 01/24/20 08:30 Aspirin (Ecotrin) 81 mg DAILY 01/25/20 09:00 UNV Clonidine HCl (Catapres Tts-3) 1 patch 1X ONCE 01/24/20 05:30 01/24/20 05:31 DC Clonidine HCl (Catapres) 0.2 mg 1X ONCE 01/23/20 17:30 01/23/20 17:31 DC 01/23/20 17:38 0.2 MG Dextrose (Dextrose 50%-Water Syringe) 12.5 gm PRN Q15MIN PRN 5/29/20 21:45 Dextrose/Sodium Chloride 1,000 ml @ 100 mls/hr 1X ONCE 01/23/20 17:45 01/24/20 03:44 DC 01/23/20 19:24 100 MLS/HR Enalaprilat (Vasotec Inj) 1.25 mg PRN Q6HRS PRN 01/25/20 12:00 Enoxaparin Sodium (Lovenox 40mg Syringe) 40 mg Q24H 01/24/20 11:00 01/24/20 13:00 40 MG Fluconazole (Diflucan) 200 mg DAILY 01/24/20 11:00 Hydralazine HCl (Apresoline) 25 mg BID 01/24/20 21:00 01/24/20 22:34 25 MG Insulin Glargine (Lantus Syringe) 18 unit QHS 01/24/20 21:00 Insulin Human Lispro (HumaLOG) 8 units DAILYWSUP 01/24/20 17:00 01/24/20 17:00 8 UNITS Labetalol HCl (Normodyne Iv Push) 20 mg PRN Q4HRS PRN 01/24/20 04:15 01/25/20 12:16 20 MG Levetiracetam (Keppra) 500 mg BID 01/24/20 09:00 Cancel Levetiracetam 500 mg/Dextrose 105 ml @ 420 mls/hr Q12HR 01/24/20 13:45 01/25/20 08:23 420 MLS/HR Lisinopril (Prinivil) 20 mg DAILY 01/24/20 12:00 Lorazepam (Ativan Inj) 0.5 mg PRN Q4HRS PRN 01/24/20 16:45 01/25/20 06:34 0.5 MG Morphine Sulfate (Morphine Sulfate) 2 mg PRN Q2HR PRN 01/23/20 17:45 01/24/20 17:44 DC Non-Formulary Medication 0.5 ea BID 01/24/20 15:00 01/24/20 21:12 0.5 EA Olanzapine (ZyPREXA) 10 mg QHS 01/24/20 21:00 01/24/20 22:20 10 MG Ondansetron HCl (Zofran) 4 mg PRN Q8HRS PRN 01/23/20 17:45 01/24/20 17:44 DC Pharmacy Consult (C.diff Med Screen By Rx) 1 each 1X ONCE 01/24/20 09:00 01/24/20 09:01 DC 01/24/20 08:26 1 EACH Piperacillin Sod/ Tazobactam Sod (Zosyn Per Pharmacy) 1 each PRN DAILY PRN 01/24/20 04:30 01/24/20 09:32 DC Piperacillin Sod/ Tazobactam Sod 3.375 gm/Sodium Chloride 50 ml @ 100 mls/hr Q6H 01/24/20 05:00 01/24/20 09:30 DC 01/24/20 05:06 100 MLS/HR Prednisone (Prednisone) 2 mg DAILY 01/24/20 12:00 Quetiapine Fumarate (SEROquel) 25 mg BID 01/24/20 12:00 01/24/20 22:21 25 MG Tacrolimus (Prograf) 0.5 mg BID 01/24/20 12:00 Trazodone HCl (Desyrel) 50 mg QHS 01/24/20 21:00 Vitamin B Complex/ Vitamin C (Vicki-Stacey) 1 tab DAILY 01/25/20 09:00 Lab Laboratory Tests Test 01/24/20 17:18 01/24/20 21:20 01/25/20 01:38 01/25/20 04:30 Glucose (Fingerstick) 146 mg/dL (70-99) 75 mg/dL (70-99) 205 mg/dL (70-99) Sodium Level 139 mmol/L (136-145) Potassium Level 4.6 mmol/L (3.5-5.1) Chloride Level 107 mmol/L (98-107) Carbon Dioxide Level 23 mmol/L (21-32) Anion Gap 9 (6-14) Blood Urea Nitrogen 26 mg/dL (7-20) Creatinine 1.3 mg/dL (0.6-1.0) Estimated GFR (Cockcroft-Gault) 49.6 Glucose Level 219 mg/dL (70-99) Calcium Level 9.4 mg/dL (8.5-10.1) Phosphorus Level 3.4 mg/dL (2.6-4.7) Magnesium Level 1.7 mg/dL (1.8-2.4) Triglycerides Level 197 mg/dL (0-150) Cholesterol Level 207 mg/dL (0-200) LDL Cholesterol, Calculated 111 mg/dL (0-100) VLDL Cholesterol, Calculated 39 mg/dL (0-40) Non-HDL Cholesterol Calculated 150 mg/dL (0-129) HDL Cholesterol 57 mg/dL (40-60) Cholesterol/HDL Ratio 3.6 Test 01/25/20 08:35 Glucose (Fingerstick) 219 mg/dL (70-99) Results All relevant outside records, renal labs, imaging studies, telemetry/EKG's were reviewed. CASS HUITRON MD January 25, 2020 13:06
--- NOTE | 2020-01-25 14:31 | RAD ---
BRAIN W/O CONTRAST History:Reason: left sided numbness / Spl. Instructions: / History: Technique: Multiplanar, multi sequential MR imaging was performed of the brain without contrast. Comparison: CT January 23, 2020. MRI October 25, 2015 Findings: No acute infarct. No intracranial hemorrhage. Chronic right parieto-occipital encephalomalacia with surrounding gliosis. Ex vacuo dilatation of the right lateral ventricle. Additional foci of FLAIR hyperintensity within the hemispheric white matter, most often due to chronic microvascular ischemia. Small chronic left parietal cortical infarct. Chronic bilateral greene radiata lacunar infarcts. Chronic bilateral thalamic and basal ganglia lacunar infarcts. Unchanged dilated lateral ventricles. No findings to suggest obstructive hydrocephalus. Imaged orbits are unremarkable. Imaged paranasal sinuses and mastoid air cells are clear. Impression: 1. No acute intracranial abnormality. 2. Chronic right parieto-occipital infarct. 3. Additional chronic lacunar infarcts. Electronically signed by: Israel Broussard DO (01/25/2020 2:28 PM) [id number]
[2020-01-25] MEDS: ENOXAPARIN 40 MG/0.4 ML SYRINGE. SQ SCH (14:53)
[2020-01-25] MEDS: OLANZapine 5 MG TABLET PO SCH (21:01)
[2020-01-25] MEDS: traZODone 50 MG TABLET. PO SCH (21:01)
[2020-01-25] MEDS: INSULIN GLARGINE SYRINGE. SQ SCH (21:07)
[2020-01-26] MEDS: LABETALOL 20 MG/4 ML DISP.SYRIN. IVP PRN (00:17)
[2020-01-26 03:17] VITALS: BP 168/87
[2020-01-26 05:25] LABS: CALCIUM 9.8 mg/dL (8.5-10.1); CREATININE 1.2 mg/dL (0.6-1.0); GFR 54.4
[2020-01-26] MEDS: AMINO AC 3%/ELECTROLYTE/GLYCER 1,000 ML IV SCH ×2 (06:02→21:14)
[2020-01-26 07:00] VITALS: BP 153/55
[2020-01-26] MEDS: TACROLIMUS 0.5 MG/ML NG SCH ×2 (09:00→20:17)
--- NOTE | 2020-01-26 09:21 | PDOC ---
Infectious Disease Note Subjective Subjective Remains afebrile SpO2 100% on room air s/p bedside swallow. Now on dysphagia I diet w/ honey thick liquids. 1:1 feeding asst. ROS ROS unobtainable Vital Sign Vital Signs Vital Signs Date Time Temp Pulse Resp B/P (MAP) Pulse Ox O2 Delivery O2 Flow Rate FiO2 01/26/20 07:00 98.2 76 153/55 (87) 100 Room Air 98.2 01/26/20 03:17 20 Physical Exam PHYSICAL EXAM GENERAL: Lying down, eyes closed, in NAD HEENT: Pupils small and equal NECK: Supple LUNGS: Clear, no accessory muscle use HEART: S1, S2. regular ABDOMEN: Soft, no guarding EXTREMITIES: No edema, no cyanosis, no clubbing. Previous amputation site, left great and second toe scar intact. No draining wounds. SKIN: warm to touch. No generalized rash. 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 arousable to tactile stimuli PIV looks ok Labs Lab Laboratory Tests Test 01/25/20 13:19 01/25/20 16:38 01/25/20 20:21 01/26/20 04:50 Glucose (Fingerstick) 225 mg/dL (70-99) 131 mg/dL (70-99) 191 mg/dL (70-99) Sodium Level 140 mmol/L (136-145) Potassium Level 5.0 mmol/L (3.5-5.1) Chloride Level 107 mmol/L (98-107) Carbon Dioxide Level 26 mmol/L (21-32) Anion Gap 7 (6-14) Blood Urea Nitrogen 26 mg/dL (7-20) Creatinine 1.2 mg/dL (0.6-1.0) Estimated GFR (Cockcroft-Gault) 54.4 Glucose Level 220 mg/dL (70-99) Calcium Level 9.8 mg/dL (8.5-10.1) Test 01/26/20 07:49 Glucose (Fingerstick) 191 mg/dL (70-99) MRI brain, 01/23 Impression: 1. No acute intracranial abnormality. 2. Chronic right parieto-occipital infarct. 3. Additional chronic lacunar infarcts. Objective Assessment Encephalopathy. Brain MRI neg acute findings History of epilepsy. Diabetes with peripheral neuropathy. h/o disseminated cryptococcus, on fluconazole. Gastroesophageal reflux disease. History of kidney transplant. Peripheral arterial disease. Chronic kidney disease, status post renal transplant. Coronary artery disease. COVID-19 neg, 01/23 Plan Plan of Care chronic fluconazole treatment Cryto Ag still pending Maintain aspiration precaution Supportive care Attending Co-Sign The patient was seen and interviewed as well as examined at the bedside. The chart was reviewed. The case was discussed. Agree with the plan of care. DIAZ DARLING APRN January 26, 2020 09:21 SHEN LANDON MD January 26, 2020 12:06
[2020-01-26] MEDS: levETIRAcetam 500 MG in IV DEXTROSE 5% 100ML 100 ML IV SCH ×2 (10:11→21:14)
[2020-01-26] MEDS: ENOXAPARIN 40 MG/0.4 ML SYRINGE. SQ SCH (10:12)
[2020-01-26] MEDS: TACROLIMUS 0.5 MG CAPSULE PO SCH ×2 (10:12→21:17)
[2020-01-26] MEDS: FOLIC/VIT B COMP W-C (RENAL) TABLET. PO SCH (10:15)
[2020-01-26] MEDS: hydrALAZINE 25 MG TABLET PO SCH ×2 (10:15→21:15)
[2020-01-26] MEDS: predniSONE 1 MG TABLET PO SCH (10:15)
[2020-01-26] MEDS: QUEtiapine 25 MG TABLET. PO SCH ×2 (10:15→21:14)
[2020-01-26] MEDS: ASPIRIN ENTERIC COATED 325 MG TABLET.DR. PO SCH (10:15)
[2020-01-26] MEDS: FLUCONAZOLE 100 MG TABLET. PO SCH (10:15)
[2020-01-26] MEDS: LISINOPRIL 20 MG TABLET PO SCH (10:16)
[2020-01-26] MEDS: INSULIN LISPRO 300 UNITS/3 ML VIAL. SQ SCH ×3 (10:33→18:33)
[2020-01-26 11:30] VITALS: BP 132/52
--- NOTE | 2020-01-26 11:53 | PDOC ---
SUBJECTIVE ROS More sleepy per RN Passed swallow study OBJECTIVE Vital Signs Vital Signs Date Time Temp Pulse Resp B/P (MAP) Pulse Ox O2 Delivery O2 Flow Rate FiO2 01/26/20 10:16 76 153/55 01/26/20 07:00 98.2 100 Room Air 98.2 01/26/20 03:17 20 I & 0 Intake and Output 01/26/20 07:00 Intake Total 50 ml Balance 50 ml Intake Oral 50 ml # Voids 5 PHYSICAL EXAM Physical Exam GENERAL: Sleeping, arouses to name HEENT: Oral mucosa moist. NECK: Supple LUNGS: No accessory muscle use HEART: S1, S2. 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 CVA - Per primary/Neurology Coronary artery disease s/p CABG anemia COMMENT/RELEVANT DATA Meds Current Medications Medications (Trade) Dose Ordered Sig/Te Start Time Stop Time Status Last Admin Dose Admin Acetaminophen (Tylenol Supp) 650 mg PRN Q4HRS PRN 01/24/20 08:30 Acetaminophen (Tylenol) 1,000 mg PRN Q8HRS PRN 01/24/20 10:15 Amino Acids/ Glycerin/ Electrolytes 1,000 ml @ 75 mls/hr [id number] 01/24/20 13:45 01/26/20 06:02 75 MLS/HR Aspirin (Aspirin Rectal Supp) 300 mg PRN DAILY PRN 01/24/20 08:30 Aspirin (Ecotrin) 81 mg DAILY 01/25/20 09:00 UNV Clonidine HCl (Catapres Tts-3) 1 patch 1X ONCE 01/24/20 05:30 01/24/20 05:31 DC Clonidine HCl (Catapres) 0.2 mg 1X ONCE 01/23/20 17:30 01/23/20 17:31 DC 01/23/20 17:38 0.2 MG Dextrose (Dextrose 50%-Water Syringe) 12.5 gm PRN Q15MIN PRN 01/24/20 21:45 Dextrose/Sodium Chloride 1,000 ml @ 100 mls/hr 1X ONCE 01/23/20 17:45 01/24/20 03:44 DC 01/23/20 19:24 100 MLS/HR Enalaprilat (Vasotec Inj) 1.25 mg PRN Q6HRS PRN 01/25/20 12:00 Enoxaparin Sodium (Lovenox 40mg Syringe) 40 mg Q24H 01/24/20 11:00 01/26/20 10:12 40 MG Fluconazole (Diflucan) 200 mg DAILY 01/24/20 11:00 01/26/20 10:15 200 MG Hydralazine HCl (Apresoline) 25 mg BID 01/24/20 21:00 01/26/20 10:15 25 MG Insulin Glargine (Lantus Syringe) 18 unit QHS 01/24/20 21:00 01/25/20 21:07 18 UNIT Insulin Human Lispro (HumaLOG) 8 units DAILYWSUP 01/24/20 17:00 01/24/20 17:00 8 UNITS Labetalol HCl (Normodyne Iv Push) 20 mg PRN Q4HRS PRN 01/24/20 04:15 01/26/20 00:17 20 MG Levetiracetam (Keppra) 500 mg BID 01/24/20 09:00 Cancel Levetiracetam 500 mg/Dextrose 105 ml @ 420 mls/hr Q12HR 01/24/20 13:45 01/26/20 10:11 420 MLS/HR Lisinopril (Prinivil) 20 mg DAILY 01/24/20 12:00 01/26/20 10:16 20 MG Lorazepam (Ativan Inj) 0.5 mg PRN Q4HRS PRN 01/24/20 16:45 01/25/20 06:34 0.5 MG Morphine Sulfate (Morphine Sulfate) 2 mg PRN Q2HR PRN 01/23/20 17:45 01/24/20 17:44 DC Non-Formulary Medication 0.5 ea BID 01/24/20 15:00 01/24/20 21:12 0.5 EA Olanzapine (ZyPREXA) 10 mg QHS 01/24/20 21:00 01/25/20 21:01 10 MG Ondansetron HCl (Zofran) 4 mg PRN Q8HRS PRN 01/23/20 17:45 01/24/20 17:44 DC Pharmacy Consult (Rebecca Med Screen By Rx) 1 each 1X ONCE 01/24/20 09:00 01/24/20 09:01 DC 01/24/20 08:26 1 EACH Piperacillin Sod/ Tazobactam Sod (Zosyn Per Pharmacy) 1 each PRN DAILY PRN 01/24/20 04:30 01/24/20 09:32 DC Piperacillin Sod/ Tazobactam Sod 3.375 gm/Sodium Chloride 50 ml @ 100 mls/hr Q6H 01/24/20 05:00 01/24/20 09:30 DC 01/24/20 05:06 100 MLS/HR Prednisone (Prednisone) 2 mg DAILY 01/24/20 12:00 01/26/20 10:15 2 MG Quetiapine Fumarate (SEROquel) 25 mg BID 01/24/20 12:00 01/26/20 10:15 25 MG Tacrolimus (Prograf) 0.5 mg BID 01/24/20 12:00 01/26/20 10:12 0.5 MG Trazodone HCl (Desyrel) 50 mg QHS 01/24/20 21:00 01/25/20 21:01 50 MG Vitamin B Complex/ Vitamin C (Vicki-Stacey) 1 tab DAILY 01/25/20 09:00 01/26/20 10:15 1 TAB Lab Laboratory Tests Test 01/25/20 13:19 01/25/20 16:38 01/25/20 20:21 01/26/20 04:50 Glucose (Fingerstick) 225 mg/dL (70-99) 131 mg/dL (70-99) 191 mg/dL (70-99) Sodium Level 140 mmol/L (136-145) Potassium Level 5.0 mmol/L (3.5-5.1) Chloride Level 107 mmol/L (98-107) Carbon Dioxide Level 26 mmol/L (21-32) Anion Gap 7 (6-14) Blood Urea Nitrogen 26 mg/dL (7-20) Creatinine 1.2 mg/dL (0.6-1.0) Estimated GFR (Cockcroft-Gault) 54.4 Glucose Level 220 mg/dL (70-99) Calcium Level 9.8 mg/dL (8.5-10.1) Test 01/26/20 07:49 01/26/20 11:48 Glucose (Fingerstick) 191 mg/dL (70-99) 178 mg/dL (70-99) Results All relevant outside records, renal labs, imaging studies, telemetry/EKG's were reviewed. CASS HUITRON MD January 26, 2020 11:53
--- NOTE | 2020-01-26 12:21 | PDOC ---
PROGRESS NOTES Subjective Subjective pt on and off awake and drowsy Objective Objective Vital Signs Date Time Temp Pulse Resp B/P (MAP) Pulse Ox O2 Delivery O2 Flow Rate FiO2 01/26/20 10:16 76 153/55 01/26/20 07:00 98.2 100 Room Air 98.2 01/26/20 03:17 20 Intake and Output 01/26/20 07:00 Intake Total 50 ml Balance 50 ml Intake Oral 50 ml # Voids 5 Physical Exam Abdomen: Normal bowel sounds, No tenderness Heart: Regular rate Extremities: No clubbing, No cyanosis General: Alert, Cooperative, No acute distress HEENT: Atraumatic, PERRLA Lungs: Clear to auscultation MUSCULOSKELETAL: No deformity, No swelling Neuro: Other (CONFUSED, lethargic) Psych/Mental Status: Mood NL Skin: No breakdown Diagnosis Problem List Problems Medical Problems: (1) Cough Status: Acute (2) Left-sided weakness Status: Acute Assessment Assessment Problems Medical Problems: (1) Cough Status: Acute (2) Left-sided weakness Status: Acute Metabolic Encephalopathy. Brain MRI neg acute findings old cva no new cva History of epilepsy. Diabetes with peripheral neuropathy. h/o disseminated cryptococcus, on fluconazole. Gastroesophageal reflux disease. History of kidney transplant. Peripheral arterial disease. Chronic kidney disease, status post renal transplant. Coronary artery disease.s/p cabg COVID-19 neg, 01/23 Plan Plan of Care: Pt admitted to hospitalist service,transferred to my care today chronic fluconazole treatment Cryto Ag still pending Maintain aspiration precaution Supportive care. spoke with ID and dr Whyte spoke with RN. labs reviewed . Plan Plan of Care Problems Medical Problems: (1) Cough Status: Acute (2) Left-sided weakness Status: Acute Comment Review of Relevant I have reviewed the following items warner (where applicable) has been applied. Labs Laboratory Tests Test 01/25/20 13:19 01/25/20 16:38 01/25/20 20:21 01/26/20 04:50 Glucose (Fingerstick) 225 mg/dL (70-99) 131 mg/dL (70-99) 191 mg/dL (70-99) Sodium Level 140 mmol/L (136-145) Potassium Level 5.0 mmol/L (3.5-5.1) Chloride Level 107 mmol/L (98-107) Carbon Dioxide Level 26 mmol/L (21-32) Anion Gap 7 (6-14) Blood Urea Nitrogen 26 mg/dL (7-20) Creatinine 1.2 mg/dL (0.6-1.0) Estimated GFR (Cockcroft-Gault) 54.4 Glucose Level 220 mg/dL (70-99) Calcium Level 9.8 mg/dL (8.5-10.1) Test 01/26/20 07:49 01/26/20 11:48 Glucose (Fingerstick) 191 mg/dL (70-99) 178 mg/dL (70-99) Vitals/I & O Vital Sign - Last 24 Hours 01/25/20 01/25/20 01/25/20 01/25/20 13:05 15:15 19:46 19:52 Temp 97.2 98.7 97.2 98.7 Pulse 75 77 81 Resp 18 20 B/P (MAP) 163/54 (90) 179/85 (116) 189/78 (115) Pulse Ox 96 98 O2 Delivery Room Air Room Air Room Air 01/25/20 01/25/20 01/26/20 01/26/20 21:01 23:59 00:17 03:17 Temp 98.1 98.6 98.1 98.6 Pulse 81 77 77 78 Resp 16 20 B/P (MAP) 189/78 171/80 (110) 171/80 168/87 (114) Pulse Ox 98 99 O2 Delivery Room Air Room Air 01/26/20 01/26/20 01/26/20 07:00 10:15 10:16 Temp 98.2 98.2 Pulse 76 76 76 B/P (MAP) 153/55 (87) 153/55 153/55 Pulse Ox 100 O2 Delivery Room Air Intake and Output 01/25/20 01/25/20 01/26/20 15:00 23:00 07:00 Intake Total 0 ml 50 ml Balance 0 ml 50 ml Nutrition Consultation Dietary Evaluation: Recommendations by RD: Dietary education by RD, Increase Calorie Intake, PPN/TPN Comments: Continue w/PPN for short-term non-oral nutrition needs while awaiting 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
--- NOTE | 2020-01-26 12:48 | PDOC ---
PULMONARY PROGRESS NOTES Subjective sleepy but answers Qs, denies sob, cough, on ra Vitals Vital Signs Date Time Temp Pulse Resp B/P (MAP) Pulse Ox O2 Delivery O2 Flow Rate FiO2 01/26/20 10:16 76 153/55 01/26/20 07:00 98.2 100 Room Air 98.2 01/26/20 03:17 20 ROS: No Nausea General: Alert, No acute distress Lungs: Crackles Cardiovascular: S1, S2 Abdomen: Soft, Non-tender Neuro Exam: Alert Extremities: Other Skin: Warm Labs Laboratory Tests Test 01/24/20 13:06 01/24/20 17:18 01/24/20 21:20 01/25/20 01:38 Glucose (Fingerstick) 204 mg/dL (70-99) 146 mg/dL (70-99) 75 mg/dL (70-99) 205 mg/dL (70-99) Test 01/25/20 04:30 01/25/20 08:35 01/25/20 13:19 01/25/20 16:38 Sodium Level 139 mmol/L (136-145) Potassium Level 4.6 mmol/L (3.5-5.1) Chloride Level 107 mmol/L (98-107) Carbon Dioxide Level 23 mmol/L (21-32) Anion Gap 9 (6-14) Blood Urea Nitrogen 26 mg/dL (7-20) Creatinine 1.3 mg/dL (0.6-1.0) Estimated GFR (Cockcroft-Gault) 49.6 Glucose Level 219 mg/dL (70-99) Calcium Level 9.4 mg/dL (8.5-10.1) Phosphorus Level 3.4 mg/dL (2.6-4.7) Magnesium Level 1.7 mg/dL (1.8-2.4) Triglycerides Level 197 mg/dL (0-150) Cholesterol Level 207 mg/dL (0-200) LDL Cholesterol, Calculated 111 mg/dL (0-100) VLDL Cholesterol, Calculated 39 mg/dL (0-40) Non-HDL Cholesterol Calculated 150 mg/dL (0-129) HDL Cholesterol 57 mg/dL (40-60) Cholesterol/HDL Ratio 3.6 Tacrolimus (Prograf) Level See separate report Glucose (Fingerstick) 219 mg/dL (70-99) 225 mg/dL (70-99) 131 mg/dL (70-99) Test 01/25/20 20:21 01/26/20 04:50 01/26/20 07:49 01/26/20 11:48 Glucose (Fingerstick) 191 mg/dL (70-99) 191 mg/dL (70-99) 178 mg/dL (70-99) Sodium Level 140 mmol/L (136-145) Potassium Level 5.0 mmol/L (3.5-5.1) Chloride Level 107 mmol/L (98-107) Carbon Dioxide Level 26 mmol/L (21-32) Anion Gap 7 (6-14) Blood Urea Nitrogen 26 mg/dL (7-20) Creatinine 1.2 mg/dL (0.6-1.0) Estimated GFR (Cockcroft-Gault) 54.4 Glucose Level 220 mg/dL (70-99) Calcium Level 9.8 mg/dL (8.5-10.1) Laboratory Tests Test 01/25/20 13:19 01/25/20 16:38 01/25/20 20:21 01/26/20 04:50 Glucose (Fingerstick) 225 mg/dL (70-99) 131 mg/dL (70-99) 191 mg/dL (70-99) Sodium Level 140 mmol/L (136-145) Potassium Level 5.0 mmol/L (3.5-5.1) Chloride Level 107 mmol/L (98-107) Carbon Dioxide Level 26 mmol/L (21-32) Anion Gap 7 (6-14) Blood Urea Nitrogen 26 mg/dL (7-20) Creatinine 1.2 mg/dL (0.6-1.0) Estimated GFR (Cockcroft-Gault) 54.4 Glucose Level 220 mg/dL (70-99) Calcium Level 9.8 mg/dL (8.5-10.1) Test 01/26/20 07:49 01/26/20 11:48 Glucose (Fingerstick) 191 mg/dL (70-99) 178 mg/dL (70-99) Medications Active Scripts Medications Dose Route/Sig Max Daily Dose Days Date Category Dose Instructions Zyprexa (Olanzapine) 10 Mg Tablet 1 Tab PO QHS 01/24/20 Reported Trazodone Hcl 50 Mg Tablet 1 Tab PO QHS 01/24/20 Reported Seroquel (Quetiapine Fumarate) 25 Mg Tablet 25 Mg PO BID 01/24/20 Reported Humalog (Insulin Lispro) 100 Unit/1 Ml Vial 2 Unit SQ [id number] 01/24/20 Reported Lisinopril 20 Mg Tablet 1 Tab PO DAILY 01/24/20 Reported Acetaminophen 500 Mg Tablet 2 Tab PO PRN Q8HRS PRN 15 09/25/19 Reported Prednisone 1 Mg Tablet 2 Mg PO DAILY 09/25/19 Reported Humalog (Insulin Lispro) 100 Unit/1 Ml Vial 8 Unit SQ [id number] 09/25/19 Reported Humalog (Insulin Lispro) 100 Unit/1 Ml Vial 4 Unit SQ [id number] 09/25/19 Reported Hydralazine Hcl 25 Mg Tablet 1 Tab PO BID 09/25/19 Reported Aspir-Low (Aspirin) 81 Mg Tablet.dr 1 Tab PO DAILY 09/25/19 Reported Diflucan (Fluconazole) 100 Mg Tablet 200 Mg PO DAILY 04/30/16 Rx Prograf (Tacrolimus) 1 Mg Capsule 0.5 Mg PO BID 03/22/16 Reported Levemir (Insulin Detemir) 100 Unit/1 Ml Vial 18 Unit SQ QHS 02/25/16 Reported Hold for FSBS below 90 and call Nephro-Stacey Tablet (Folic Acid/Vitamin B Comp W-C) 0.8 Mg Tablet 1 Tab PO DAILY 02/25/16 Reported Levetiracetam 500 Mg Tablet 500 Mg PO BID 01/17/14 Reported Impression . IMPRESSION: 1. The patient with stable lung nodules. Latest ct chest is from October 2019.. She has a 2 cm pleural based nodule in the right upper lobe, which is unchanged since 2018. In addition, she also has nodular opacity in the right lower lobe measuring about 1 cm in size. There is a 2 mm nodular opacity in the inferior aspect of the right lower lobe, which is unchanged. All these nodules have been stable since her CAT scan from 2019 as well as a CAT scan of the chest from 12/19/2017. Likely, this is a benign etiology. 2. Encephalopathy. improving 3. Stroke-like symptoms. Neurology has been consulted. She has prior history of seizures and metabolic encephalopathy and we will follow Neurology recommendations. Plan . RECOMMENDATIONS: 1. From a pulmonary standpoint when comparisons were made to the nodules from 2018, they all have been stable. The last CT chest was from 10/2019 and oldest one is from 11/2017. These are likely benign nodules and have been stable for 2 years. no need for any further followup on CT chest. 2. Follow Neurology recommendation. mri no acute abnl, old cva 3. Follow Nephrology recommendation. 4. Minimize benzodiazepines. avoid oversedation 5. covid19 neg Discussed with RN. We will follow along with you. SPRING KESSLER MD January 26, 2020 12:48
[2020-01-26 15:00] VITALS: BP 123/42
[2020-01-26 19:47] VITALS: BP 149/48
[2020-01-26] MEDS: OLANZapine 5 MG TABLET PO SCH (21:14)
[2020-01-26] MEDS: traZODone 50 MG TABLET. PO SCH (21:14)
[2020-01-26] MEDS: INSULIN GLARGINE SYRINGE. SQ SCH (21:19)
[2020-01-26 23:34] VITALS: BP 150/49
[2020-01-27] VITALS (7 sets, daily range): BP systolic 94–155; BP diastolic 32–72
[2020-01-27 05:33] LABS: BASO % 0 % (0-3); EOS # 0.2 x10^3/uL (0.0-0.7); EOS % 3 % (0-3); HEMATOCRIT 35.1 % (36.0-47.0); HEMOGLOBIN 11.3 g/dL (12.0-15.5); LYMPH # 1.2 x10^3/uL (1.0-4.8); LYMPH % 16 % (24-48); MEAN CORPUSCULAR HEMOGLOBIN 26 pg (25-35); MEAN CORPUSCULAR HGB CONC 32 g/dL (31-37); MEAN CORPUSCULAR VOLUME 80 fL (79-100); MONO # 0.7 x10^3/uL (0.0-1.1); MONO % 10 % (0-9); NEUT # 5.4 x10^3/uL (1.8-7.7); NEUT % 71 % (31-73); PLATELET COUNT 248 x10^3/uL (140-400); RED CELL DISTRIBUTION WIDTH 15.8 % (11.5-14.5); WHITE BLOOD COUNT 7.6 x10^3/uL (4.0-11.0)
[2020-01-27 05:53] LABS: CALCIUM 9.8 mg/dL (8.5-10.1); CREATININE 1.3 mg/dL (0.6-1.0); GFR 49.6; POTASSIUM 5.1 mmol/L (3.5-5.1)
[2020-01-27] MEDS: AMINO AC 3%/ELECTROLYTE/GLYCER 1,000 ML IV SCH ×2 (08:25→21:16)
[2020-01-27] MEDS: QUEtiapine 25 MG TABLET. PO SCH (09:00)
[2020-01-27] MEDS: FOLIC/VIT B COMP W-C (RENAL) TABLET. PO SCH (09:09)
[2020-01-27] MEDS: TACROLIMUS 0.5 MG CAPSULE PO SCH ×2 (09:09→21:16)
[2020-01-27] MEDS: ASPIRIN ENTERIC COATED 325 MG TABLET.DR. PO SCH (09:10)
[2020-01-27] MEDS: FLUCONAZOLE 100 MG TABLET. PO SCH (09:10)
[2020-01-27] MEDS: LISINOPRIL 20 MG TABLET PO SCH (09:10)
[2020-01-27] MEDS: levETIRAcetam 500 MG TABLET PO SCH ×2 (09:10→21:16)
[2020-01-27] MEDS: hydrALAZINE 25 MG TABLET PO SCH ×2 (09:10→21:17)
[2020-01-27] MEDS: predniSONE 5 MG TABLET PO SCH (09:12)
[2020-01-27] MEDS: INSULIN LISPRO 300 UNITS/3 ML VIAL. SQ SCH ×3 (09:26→17:19)
--- NOTE | 2020-01-27 09:46 | PDOC ---
SUBJECTIVE ROS lethargic, somnolent OBJECTIVE Vital Signs Vital Signs Date Time Temp Pulse Resp B/P (MAP) Pulse Ox O2 Delivery O2 Flow Rate FiO2 01/27/20 09:10 84 149/56 01/27/20 07:00 98.2 16 100 Room Air 98.2 I & 0 Intake and Output 01/27/20 07:00 Intake Total 100 ml Balance 100 ml Intake Oral 100 ml # Voids 3 PHYSICAL EXAM Physical Exam GENERAL: NAD HEENT: Oral mucosa moist. NECK: Supple LUNGS: No accessory muscle use HEART: S1, S2. 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 CVA - Per primary/Neurology Coronary artery disease s/p CABG anemia COMMENT/RELEVANT DATA Meds Current Medications Medications (Trade) Dose Ordered Sig/Te Start Time Stop Time Status Last Admin Dose Admin Acetaminophen (Tylenol Supp) 650 mg PRN Q4HRS PRN 01/24/20 08:30 Acetaminophen (Tylenol) 1,000 mg PRN Q8HRS PRN 01/24/20 10:15 Amino Acids/ Glycerin/ Electrolytes 1,000 ml @ 75 mls/hr [id number] 01/24/20 13:45 01/26/20 21:14 75 MLS/HR Aspirin (Aspirin Rectal Supp) 300 mg PRN DAILY PRN 01/24/20 08:30 Aspirin (Ecotrin) 81 mg DAILY 01/25/20 09:00 UNV Clonidine HCl (Catapres Tts-3) 1 patch 1X ONCE 01/24/20 05:30 01/24/20 05:31 DC Clonidine HCl (Catapres) 0.2 mg 1X ONCE 01/23/20 17:30 01/23/20 17:31 DC 01/23/20 17:38 0.2 MG Dextrose (Dextrose 50%-Water Syringe) 12.5 gm PRN Q15MIN PRN 01/24/20 21:45 Dextrose/Sodium Chloride 1,000 ml @ 100 mls/hr 1X ONCE 01/23/20 17:45 01/24/20 03:44 DC 01/23/20 19:24 100 MLS/HR Enalaprilat (Vasotec Inj) 1.25 mg PRN Q6HRS PRN 01/25/20 12:00 Enoxaparin Sodium (Lovenox 40mg Syringe) 40 mg Q24H 01/24/20 11:00 01/26/20 12:24 DC 01/26/20 10:12 40 MG Fluconazole (Diflucan) 200 mg DAILY 01/24/20 11:00 01/27/20 09:10 200 MG Hydralazine HCl (Apresoline) 25 mg BID 01/24/20 21:00 01/27/20 09:10 25 MG Insulin Glargine (Lantus Syringe) 18 unit QHS 01/24/20 21:00 01/26/20 21:19 18 UNIT Insulin Human Lispro (HumaLOG) 8 units DAILYWSUP 01/24/20 17:00 01/26/20 18:33 8 UNITS Labetalol HCl (Normodyne Iv Push) 20 mg PRN Q4HRS PRN 01/24/20 04:15 01/26/20 00:17 20 MG Levetiracetam (Keppra) 500 mg BID 01/27/20 09:00 01/27/20 09:10 500 MG Levetiracetam 500 mg/Dextrose 105 ml @ 420 mls/hr Q12HR 01/24/20 13:45 01/27/20 08:47 DC 01/26/20 21:14 420 MLS/HR Lisinopril (Prinivil) 20 mg DAILY 01/24/20 12:00 01/27/20 09:10 20 MG Lorazepam (Ativan Inj) 0.5 mg PRN Q4HRS PRN 01/24/20 16:45 01/25/20 06:34 0.5 MG Morphine Sulfate (Morphine Sulfate) 2 mg PRN Q2HR PRN 01/23/20 17:45 01/24/20 17:44 DC Non-Formulary Medication 0.5 ea BID 01/24/20 15:00 01/27/20 04:41 DC 01/24/20 21:12 0.5 EA Olanzapine (ZyPREXA) 10 mg QHS 01/24/20 21:00 01/26/20 21:14 10 MG Ondansetron HCl (Zofran) 4 mg PRN Q8HRS PRN 01/23/20 17:45 01/24/20 17:44 DC Pharmacy Consult (C.diff Med Screen By Rx) 1 each 1X ONCE 01/24/20 09:00 01/24/20 09:01 DC 01/24/20 08:26 1 EACH Piperacillin Sod/ Tazobactam Sod (Zosyn Per Pharmacy) 1 each PRN DAILY PRN 01/24/20 04:30 01/24/20 09:32 DC Piperacillin Sod/ Tazobactam Sod 3.375 gm/Sodium Chloride 50 ml @ 100 mls/hr Q6H 01/24/20 05:00 01/24/20 09:30 DC 01/24/20 05:06 100 MLS/HR Prednisone (Prednisone) 5 mg DAILY 01/27/20 09:00 01/27/20 09:12 5 MG Quetiapine Fumarate (SEROquel) 25 mg BID 01/24/20 12:00 01/26/20 21:14 25 MG Tacrolimus (Prograf) 0.5 mg BID 01/24/20 12:00 01/27/20 09:09 0.5 MG Trazodone HCl (Desyrel) 50 mg QHS 01/24/20 21:00 01/26/20 21:14 50 MG Vitamin B Complex/ Vitamin C (Vicki-Stacey) 1 tab DAILY 01/25/20 09:00 01/27/20 09:09 1 TAB Lab Laboratory Tests Test 01/26/20 11:48 01/26/20 17:25 01/26/20 20:43 01/27/20 05:26 Glucose (Fingerstick) 178 mg/dL (70-99) 185 mg/dL (70-99) 231 mg/dL (70-99) White Blood Count 7.6 x10^3/uL (4.0-11.0) Red Blood Count 4.40 x10^6/uL (3.50-5.40) Hemoglobin 11.3 g/dL (12.0-15.5) Hematocrit 35.1 % (36.0-47.0) Mean Corpuscular Volume 80 fL (79-100) Mean Corpuscular Hemoglobin 26 pg (25-35) Mean Corpuscular Hemoglobin Concent 32 g/dL (31-37) Red Cell Distribution Width 15.8 % (11.5-14.5) Platelet Count 248 x10^3/uL (140-400) Neutrophils (%) (Auto) 71 % (31-73) Lymphocytes (%) (Auto) 16 % (24-48) Monocytes (%) (Auto) 10 % (0-9) Eosinophils (%) (Auto) 3 % (0-3) Basophils (%) (Auto) 0 % (0-3) Neutrophils # (Auto) 5.4 x10^3/uL (1.8-7.7) Lymphocytes # (Auto) 1.2 x10^3/uL (1.0-4.8) Monocytes # (Auto) 0.7 x10^3/uL (0.0-1.1) Eosinophils # (Auto) 0.2 x10^3/uL (0.0-0.7) Basophils # (Auto) 0.0 x10^3/uL (0.0-0.2) Sodium Level 136 mmol/L (136-145) Potassium Level 5.1 mmol/L (3.5-5.1) Chloride Level 103 mmol/L (98-107) Carbon Dioxide Level 23 mmol/L (21-32) Anion Gap 10 (6-14) Blood Urea Nitrogen 41 mg/dL (7-20) Creatinine 1.3 mg/dL (0.6-1.0) Estimated GFR (Cockcroft-Gault) 49.6 Glucose Level 243 mg/dL (70-99) Calcium Level 9.8 mg/dL (8.5-10.1) Test 01/27/20 07:22 Glucose (Fingerstick) 239 mg/dL (70-99) Results All relevant outside records, renal labs, imaging studies, telemetry/EKG's were reviewed Brain MRI 01/24 .1. No acute intracranial abnormality. 2. Chronic right parieto-occipital infarct. 3. Additional chronic lacunar infarcts. CASS HUITRON MD Jan 27, 2020 09:46
--- NOTE | 2020-01-27 09:56 | PDOC ---
PROGRESS NOTES Subjective Subjective lethargic today Objective Objective Vital Signs Date Time Temp Pulse Resp B/P (MAP) Pulse Ox O2 Delivery O2 Flow Rate FiO2 01/27/20 09:10 84 149/56 01/27/20 07:00 98.2 16 100 Room Air 98.2 Intake and Output0 01/27/20 06:59 Intake Total 100 ml Balance 100 ml Intake Oral 100 ml # Voids 3 Physical Exam Abdomen: Normal bowel sounds, No tenderness Heart: Regular rate Extremities: No clubbing, No cyanosis General: No acute distress HEENT: Atraumatic, PERRLA Lungs: Clear to auscultation MUSCULOSKELETAL: No deformity, No swelling Neuro: Other (CONFUSED, lethargic) Skin: No breakdown Diagnosis Problem List Problems Medical Problems: (1) Cough Status: Acute (2) Left-sided weakness Status: Acute Assessment Assessment Problems Medical Problems: (1) Cough Status: Acute (2) Left-sided weakness Status: Acute Metabolic Encephalopathy. Brain MRI neg acute findings , old CVA History of epilepsy. Diabetes with peripheral neuropathy. h/o disseminated cryptococcus, on fluconazole. Gastroesophageal reflux disease. History of kidney transplant. Peripheral arterial disease. Chronic kidney disease, status post renal transplant. Coronary artery disease.s/p cabg COVID-19 neg, 01/23 Plan Plan of Care: Spoke with ID , spinal tap today holding Lovenox since yesterday for spinal tap. spoke with pts daughter Stacia today. labs reviewed Needs central line+procalamine d/c zyprexa+seroquel +Trazadone, Pt admitted to hospitalist service,transferred to my care 01/26/20. Plan Plan of Care Problems Medical Problems: (1) Cough Status: Acute (2) Left-sided weakness Status: Acute Comment Review of Relevant I have reviewed the following items warner (where applicable) has been applied. Labs Laboratory Tests Test 01/26/20 11:48 01/26/20 17:25 01/26/20 20:43 01/27/20 05:26 Glucose (Fingerstick) 178 mg/dL (70-99) 185 mg/dL (70-99) 231 mg/dL (70-99) White Blood Count 7.6 x10^3/uL (4.0-11.0) Red Blood Count 4.40 x10^6/uL (3.50-5.40) Hemoglobin 11.3 g/dL (12.0-15.5) Hematocrit 35.1 % (36.0-47.0) Mean Corpuscular Volume 80 fL (79-100) Mean Corpuscular Hemoglobin 26 pg (25-35) Mean Corpuscular Hemoglobin Concent 32 g/dL (31-37) Red Cell Distribution Width 15.8 % (11.5-14.5) Platelet Count 248 x10^3/uL (140-400) Neutrophils (%) (Auto) 71 % (31-73) Lymphocytes (%) (Auto) 16 % (24-48) Monocytes (%) (Auto) 10 % (0-9) Eosinophils (%) (Auto) 3 % (0-3) Basophils (%) (Auto) 0 % (0-3) Neutrophils # (Auto) 5.4 x10^3/uL (1.8-7.7) Lymphocytes # (Auto) 1.2 x10^3/uL (1.0-4.8) Monocytes # (Auto) 0.7 x10^3/uL (0.0-1.1) Eosinophils # (Auto) 0.2 x10^3/uL (0.0-0.7) Basophils # (Auto) 0.0 x10^3/uL (0.0-0.2) Sodium Level 136 mmol/L (136-145) Potassium Level 5.1 mmol/L (3.5-5.1) Chloride Level 103 mmol/L (98-107) Carbon Dioxide Level 23 mmol/L (21-32) Anion Gap 10 (6-14) Blood Urea Nitrogen 41 mg/dL (7-20) Creatinine 1.3 mg/dL (0.6-1.0) Estimated GFR (Cockcroft-Gault) 49.6 Glucose Level 243 mg/dL (70-99) Calcium Level 9.8 mg/dL (8.5-10.1) Test 01/27/20 07:22 Glucose (Fingerstick) 239 mg/dL (70-99) Medications Current Medications Levetiracetam (Keppra) 500 mg BID PO Last administered on 01/27/20at 09:10; Start 01/27/20 at 09:00 Prednisone (Prednisone) 5 mg DAILY PO Last administered on 01/27/20at 09:12; Start 01/27/20 at 09:00 Vitals/I & O Vital Sign - Last 24 Hours 01/26/20 01/26/20 01/26/20 01/26/20 10:15 10:16 11:30 15:00 Temp 98.9 97.5 98.9 97.5 Pulse 76 76 74 68 Resp 16 16 B/P (MAP) 153/55 153/55 132/52 (78) 123/42 (69) Pulse Ox 99 100 O2 Delivery Room Air Room Air 01/26/20 01/26/20 01/26/20 01/26/20 19:47 20:00 21:15 23:34 Temp 98.0 98.1 98.0 98.1 Pulse 73 73 61 Resp 16 16 B/P (MAP) 149/48 (81) 149/48 150/49 (82) Pulse Ox 98 98 O2 Delivery Room Air Room Air Room Air 01/27/20 01/27/20 01/27/20 01/27/20 03:28 04:00 07:00 09:10 Temp 97.8 98.2 97.8 98.2 Pulse 72 75 84 84 Resp 16 16 B/P (MAP) 94/72 (79) 154/70 (98) 149/56 (87) 149/56 Pulse Ox 97 100 O2 Delivery Room Air Room Air 01/27/20 09:10 Pulse 84 B/P (MAP) 149/56 Intake and Output 01/26/20 01/26/20 01/27/20 14:59 22:59 06:59 Intake Total 100 ml Balance 100 ml Nutrition Consultation Dietary Evaluation: Recommendations by RD: Dietary education by RD, Increase Calorie Intake, PPN/TPN Comments: Continue w/PPN for short-term non-oral nutrition needs while 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
--- NOTE | 2020-01-27 10:01 | PDOC ---
PROGRESS NOTES Assessment Problems Medical Problems: (1) Cough Status: Acute (2) Left-sided weakness Status: Acute Metabolic encephalopathy No acute stroke. Dementia and multiple psychiatric diagnoses. 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 Diabetic peripheral neuropathy Ruled out COVID Medical issues: status-post renal transplant, chronic allograft nephropathy, CKD stage 3, istory of disseminated Cryptococcus, coronary artery disease, anemia, lung nodules Plan No additional stroke or TIA workup required Levetiracetam No further neurological tests or treatment Return to alf when medically stable Subjective None Objective Vital Signs Date Time Temp Pulse Resp B/P (MAP) Pulse Ox O2 Delivery O2 Flow Rate FiO2 01/27/20 09:10 84 149/56 01/27/20 07:00 98.2 16 100 Room Air 98.2 Intake and Output 01/27/20 06:59 Intake Total 100 ml Balance 100 ml Intake Oral 100 ml # Voids 3 PHYSICAL EXAM Alert. Oriented only to person. PERRL. EOMI. CN: no focal findings. Muscle tone: normal. Muscle strength: 4/5 DTR: 1+ Plantar reflex: flexor Gait: not examined in bed. Sensory exam: stocking loss. Cerebellar: Not cooperative Review of Relevant I have reviewed the following items warner (where applicable) has been applied. Labs Laboratory Tests Test 01/25/20 13:19 01/25/20 16:38 01/25/20 20:21 01/26/20 04:50 Glucose (Fingerstick) 225 mg/dL (70-99) 131 mg/dL (70-99) 191 mg/dL (70-99) Sodium Level 140 mmol/L (136-145) Potassium Level 5.0 mmol/L (3.5-5.1) Chloride Level 107 mmol/L (98-107) Carbon Dioxide Level 26 mmol/L (21-32) Anion Gap 7 (6-14) Blood Urea Nitrogen 26 mg/dL (7-20) Creatinine 1.2 mg/dL (0.6-1.0) Estimated GFR (Cockcroft-Gault) 54.4 Glucose Level 220 mg/dL (70-99) Calcium Level 9.8 mg/dL (8.5-10.1) Test 01/26/20 07:49 01/26/20 11:48 01/26/20 17:25 01/26/20 20:43 Glucose (Fingerstick) 191 mg/dL (70-99) 178 mg/dL (70-99) 185 mg/dL (70-99) 231 mg/dL (70-99) Test 01/27/20 05:26 01/27/20 07:22 White Blood Count 7.6 x10^3/uL (4.0-11.0) Red Blood Count 4.40 x10^6/uL (3.50-5.40) Hemoglobin 11.3 g/dL (12.0-15.5) Hematocrit 35.1 % (36.0-47.0) Mean Corpuscular Volume 80 fL (79-100) Mean Corpuscular Hemoglobin 26 pg (25-35) Mean Corpuscular Hemoglobin Concent 32 g/dL (31-37) Red Cell Distribution Width 15.8 % (11.5-14.5) Platelet Count 248 x10^3/uL (140-400) Neutrophils (%) (Auto) 71 % (31-73) Lymphocytes (%) (Auto) 16 % (24-48) Monocytes (%) (Auto) 10 % (0-9) Eosinophils (%) (Auto) 3 % (0-3) Basophils (%) (Auto) 0 % (0-3) Neutrophils # (Auto) 5.4 x10^3/uL (1.8-7.7) Lymphocytes # (Auto) 1.2 x10^3/uL (1.0-4.8) Monocytes # (Auto) 0.7 x10^3/uL (0.0-1.1) Eosinophils # (Auto) 0.2 x10^3/uL (0.0-0.7) Basophils # (Auto) 0.0 x10^3/uL (0.0-0.2) Sodium Level 136 mmol/L (136-145) Potassium Level 5.1 mmol/L (3.5-5.1) Chloride Level 103 mmol/L (98-107) Carbon Dioxide Level 23 mmol/L (21-32) Anion Gap 10 (6-14) Blood Urea Nitrogen 41 mg/dL (7-20) Creatinine 1.3 mg/dL (0.6-1.0) Estimated GFR (Cockcroft-Gault) 49.6 Glucose Level 243 mg/dL (70-99) Calcium Level 9.8 mg/dL (8.5-10.1) Glucose (Fingerstick) 239 mg/dL (70-99) Laboratory Tests Test 01/26/20 11:48 01/26/20 17:25 01/26/20 20:43 01/27/20 05:26 Glucose (Fingerstick) 178 mg/dL (70-99) 185 mg/dL (70-99) 231 mg/dL (70-99) White Blood Count 7.6 x10^3/uL (4.0-11.0) Red Blood Count 4.40 x10^6/uL (3.50-5.40) Hemoglobin 11.3 g/dL (12.0-15.5) Hematocrit 35.1 % (36.0-47.0) Mean Corpuscular Volume 80 fL (79-100) Mean Corpuscular Hemoglobin 26 pg (25-35) Mean Corpuscular Hemoglobin Concent 32 g/dL (31-37) Red Cell Distribution Width 15.8 % (11.5-14.5) Platelet Count 248 x10^3/uL (140-400) Neutrophils (%) (Auto) 71 % (31-73) Lymphocytes (%) (Auto) 16 % (24-48) Monocytes (%) (Auto) 10 % (0-9) Eosinophils (%) (Auto) 3 % (0-3) Basophils (%) (Auto) 0 % (0-3) Neutrophils # (Auto) 5.4 x10^3/uL (1.8-7.7) Lymphocytes # (Auto) 1.2 x10^3/uL (1.0-4.8) Monocytes # (Auto) 0.7 x10^3/uL (0.0-1.1) Eosinophils # (Auto) 0.2 x10^3/uL (0.0-0.7) Basophils # (Auto) 0.0 x10^3/uL (0.0-0.2) Sodium Level 136 mmol/L (136-145) Potassium Level 5.1 mmol/L (3.5-5.1) Chloride Level 103 mmol/L (98-107) Carbon Dioxide Level 23 mmol/L (21-32) Anion Gap 10 (6-14) Blood Urea Nitrogen 41 mg/dL (7-20) Creatinine 1.3 mg/dL (0.6-1.0) Estimated GFR (Cockcroft-Gault) 49.6 Glucose Level 243 mg/dL (70-99) Calcium Level 9.8 mg/dL (8.5-10.1) Test 01/27/20 07:22 Glucose (Fingerstick) 239 mg/dL (70-99) Medications Current Medications Clonidine HCl (Catapres) 0.2 mg 1X ONCE PO Last administered on 01/23/20at 17:38; Start 01/23/20 at 17:30; Stop 01/23/20 at 17:31; Status DC Ondansetron HCl (Zofran) 4 mg PRN Q8HRS PRN IV NAUSEA/VOMITING; Start 01/23/20 at 17:45; Stop 01/24/20 at 17:44; Status DC Morphine Sulfate (Morphine Sulfate) 2 mg PRN Q2HR PRN IV PAIN; Start 01/23/20 at 17:45; Stop 01/24/20 at 17:44; Status DC Dextrose/Sodium Chloride 1,000 ml @ 100 mls/hr 1X ONCE IV Last administered on 01/23/20at 19:24; Start 01/23/20 at 17:45; Stop 01/24/20 at 03:44; Status DC Pharmacy Consult (C.diff Med Screen By Rx) 1 each 1X ONCE MC Last administered on 01/24/20at 08:26; Start 01/24/20 at 09:00; Stop 01/24/20 at 09:01; Status DC Labetalol HCl (Normodyne Iv Push) 20 mg PRN Q4HRS PRN IVP HYPERTENSION, 2nd choice Last administered on 01/26/20at 00:17; Start 01/24/20 at 04:15 Clonidine HCl (Catapres Tts-3) 1 patch WEEKLY TD ; Start 01/24/20 at 09:00; Stop 01/24/20 at 05:21; Status DC Piperacillin Sod/ Tazobactam Sod (Zosyn Per Pharmacy) 1 each PRN DAILY PRN [facility] SEE COMMENTS; Start 01/24/20 at 04:30; Stop 01/24/20 at 09:32; Status DC Piperacillin Sod/ Tazobactam Sod 3.375 gm/Sodium Chloride 50 ml @ 100 mls/hr Q6H IV Last administered on 01/24/20at 05:06; Start 01/24/20 at 05:00; Stop 01/24/20 at 09:30; Status DC Clonidine HCl (Catapres Tts-3) 1 patch WEEKLY TD Last administered on 01/24/20at 15:53; Start 01/24/20 at 16:00 Clonidine HCl (Catapres Tts-3) 1 patch 1X ONCE TD ; Start 01/24/20 at 05:30; Stop 01/24/20 at 05:31; Status DC Levetiracetam (Keppra) 500 mg BID PO ; Start 01/24/20 at 09:00; Status Cancel Acetaminophen (Tylenol) 650 mg PRN Q6HRS PRN PO TEMP > 100.4F; Start 01/24/20 at 08:30; Stop 01/26/20 at 12:00; Status DC Acetaminophen (Tylenol Supp) 650 mg PRN Q4HRS PRN IN TEMP > 100.4F; Start 01/24/20 at 08:30 Aspirin (Ecotrin) 325 mg DAILYWBKFT PO Last administered on 01/27/20at 09:10; Start 01/25/20 at 08:00 Aspirin (Aspirin Rectal Supp) 300 mg PRN DAILY PRN IN IF UNABLE TO TAKE PO; Start 01/24/20 at 08:30 Lorazepam (Ativan Inj) 2 mg PRN Q4HRS PRN IVP ANXIETY / AGITATION Last adminis tered on 01/24/20at 10:14; Start 01/24/20 at 10:00; Stop 01/24/20 at 16:35; Status DC Acetaminophen (Tylenol) 1,000 mg PRN Q8HRS PRN PO MILD PAIN OR FEVER; Start 01/24/20 at 10:15 Aspirin (Ecotrin) 81 mg DAILY PO ; Start 01/25/20 at 09:00; Status UNV Vitamin B Complex/ Vitamin C (Vicki-Stacey) 1 tab DAILY PO Last administered on 01/27/20at 09:09; Start 01/25/20 at 09:00 Hydralazine HCl (Apresoline) 25 mg BID PO Last administered on 01/27/20at 09:10; Start 01/24/20 at 21:00 Insulin Human Lispro (HumaLOG) 2 units DAILYWLUN SQ Last administered on 01/26/20at 13:21; Start 01/24/20 at 12:00 Insulin Human Lispro (HumaLOG) 4 units DAILYWBKFT SQ Last administered on 01/27/20at 09:26; Start 01/25/20 at 08:00 Insulin Human Lispro (HumaLOG) 8 units DAILYWSUP SQ Last administered on 01/26/20at 18:33; Start 01/24/20 at 17:00 Lisinopril (Prinivil) 20 mg DAILY PO Last administered on 01/27/20 09:10; Start 01/24/20 at 12:00 Prednisone (Prednisone) 2 mg DAILY PO Last administered on 01/26/20at 10:15; Start 01/24/20 at 12:00; Stop 01/26/20 at 12:24; Status DC Quetiapine Fumarate (SEROquel) 25 mg BID PO Last administered on 01/26/20at 21:14; Start 01/24/20 at 12:00; Stop 01/27/20 at 09:52; Status DC Tacrolimus (Prograf) 0.5 mg BID PO Last administered on 01/27/20 09:09; Start 01/24/20 at 12:00 Trazodone HCl (Desyrel) 50 mg QHS PO Last administered on 01/26/20at 21:14; Start 01/24/20 at 21:00; Stop 01/27/20 at 09:52; Status DC Fluconazole (Diflucan) 200 mg DAILY PO Last administered on 01/27/20at 09:10; Start 01/24/20 at 11:00 Insulin Glargine (Lantus Syringe) 18 unit QHS SQ ; Start 01/24/20 at 21:00; Stop 01/24/20 at 20:59; Status DC Olanzapine (ZyPREXA) 10 mg QHS PO Last administered on 01/26/20at 21:14; Start 01/24/20 at 21:00; Stop 01/27/20 at 09:52; Status DC Enoxaparin Sodium (Lovenox 40mg Syringe) 40 mg Q24H SQ Last administered on 01/26/20at 10:12; Start 01/24/20 at 11:00; Stop 01/26/20 at 12:24; Status DC Amino Acids/ Glycerin/ Electrolytes 1,000 ml @ 75 mls/hr [id number] IV Last administered on 01/26/20at 21:14; Start 01/24/20 at 13:45 Levetiracetam 500 mg/Dextrose 105 ml @ 420 mls/hr Q12HR IV Last administered on 01/26/20at 21:14; Start 01/24/20 at 13:45; Stop 01/27/20 at 08:47; Status DC Non-Formulary Medication 0.5 ea BID NG Last administered on 01/24/20at 21:12; Start 01/24/20 at 15:00; Stop 01/27/20 at 04:41; Status DC Lorazepam (Ativan Inj) 0.5 mg PRN Q4HRS PRN IVP ANXIETY / AGITATION Last adm inistered on 01/25/20at 06:34; Start 01/24/20 at 16:45 Insulin Glargine (Lantus Syringe) 18 unit QHS SQ Last administered on 01/26/20at 21:19; Start 01/24/20 at 21:00 Dextrose (Dextrose 50%-Water Syringe) 12.5 gm PRN Q15MIN PRN IV SEE COMMENTS; Start 01/24/20 at 21:45 Enalaprilat (Vasotec Inj) 1.25 mg PRN Q6HRS PRN IVP HYPERTENSION, 1st choice; Start 01/25/20 at 12:00 Prednisone (Prednisone) 5 mg DAILY PO Last administered on 01/27/20at 09:12; Start 01/27/20 at 09:00 Levetiracetam (Keppra) 500 mg BID PO Last administered on 01/27/20at 09:10; Start 01/27/20 at 09:00 Active Scripts Active Diflucan (Fluconazole) 100 Mg Tablet 200 Mg PO DAILY Reported Zyprexa (Olanzapine) 10 Mg Tablet 1 Tab PO QHS Trazodone Hcl 50 Mg Tablet 1 Tab PO QHS Seroquel (Quetiapine Fumarate) 25 Mg Tablet 25 Mg PO BID Humalog (Insulin Lispro) 100 Unit/1 Ml Vial 2 Unit SQ DAILYBFRLUN Lisinopril 20 Mg Tablet 1 Tab PO DAILY Acetaminophen 500 Mg Tablet 2 Tab PO PRN Q8HRS PRN 15 Days Prednisone 1 Mg Tablet 2 Mg PO DAILY Humalog (Insulin Lispro) 100 Unit/1 Ml Vial 8 Unit SQ DAILYBFRSUP Humalog (Insulin Lispro) 100 Unit/1 Ml Vial 4 Unit SQ DAILYWBKFT Hydralazine Hcl 25 Mg Tablet 1 Tab PO BID Aspir-Low (Aspirin) 81 Mg Tablet. 1 Tab PO DAILY Prograf (Tacrolimus) 1 Mg Capsule 0.5 Mg PO BID Levemir (Insulin Detemir) 100 Unit/1 Ml Vial 18 Unit SQ QHS Hold for FSBS below 90 and call Nephro-Stacey Tablet (Folic Acid/Vitamin B Comp W-C) 0.8 Mg Tablet 1 Tab PO DAILY Levetiracetam 500 Mg Tablet 500 Mg PO BID Vitals/I & O Vital Sign - Last 24 Hours 01/26/20 01/26/20 01/26/20 01/26/20 10:15 10:16 11:30 15:00 Temp 98.9 97.5 98.9 97.5 Pulse 76 76 74 68 Resp 16 16 B/P (MAP) 153/55 153/55 132/52 (78) 123/42 (69) Pulse Ox 99 100 O2 Delivery Room Air Room Air 01/26/20 01/26/20 01/26/20 01/26/20 19:47 20:00 21:15 23:34 Temp 98.0 98.1 98.0 98.1 Pulse 73 73 61 Resp 16 16 B/P (MAP) 149/48 (81) 149/48 150/49 (82) Pulse Ox 98 98 O2 Delivery Room Air Room Air Room Air 01/27/20 01/27/20 01/27/20 01/27/20 03:28 04:00 07:00 09:10 Temp 97.8 98.2 97.8 98.2 Pulse 72 75 84 84 Resp 16 16 B/P (MAP) 94/72 (79) 154/70 (98) 149/56 (87) 149/56 Pulse Ox 97 100 O2 Delivery Room Air Room Air 01/27/20 09:10 Pulse 84 B/P (MAP) 149/56 Intake and Output 01/26/20 01/26/20 01/27/20 14:59 22:59 06:59 Intake Total 100 ml Balance 100 ml Images BRAIN W/O CONTRAST History:Reason: left sided numbness / Spl. Instructions: / History: Technique: Multiplanar, multi sequential MR imaging was performed of the brain without contrast. Comparison: CT January 23, 2020. MRI October 25, 2015 Findings: No acute infarct. No intracranial hemorrhage. Chronic right parieto-occipital encephalomalacia with surrounding gliosis. Ex vacuo dilatation of the right lateral ventricle. Additional foci of FLAIR hyperintensity within the hemispheric white matter, most often due to chronic microvascular ischemia. Small chronic left parietal cortical infarct. Chronic bilateral greene radiata lacunar infarcts. Chronic bilateral thalamic and basal ganglia lacunar infarcts. Unchanged dilated lateral ventricles. No findings to suggest obstructive hydrocephalus. Imaged orbits are unremarkable. Imaged paranasal sinuses and mastoid air cells are clear. Impression: 1. No acute intracranial abnormality. 2. Chronic right parieto-occipital infarct. 3. Additional chronic lacunar infarcts. ISELA WASHINGTON MD Jan 27, 2020 10:01
--- NOTE | 2020-01-27 10:10 | PDOC ---
Infectious Disease Note Subjective Subjective Patient is arousable nods and says even she is fine to me but goes back to sleep ROS ROS No nausea vomiting diarrhea chest pain shortness of breath abdominal pain headache or fever Vital Sign Vital Signs Vital Signs Date Time Temp Pulse Resp B/P (MAP) Pulse Ox O2 Delivery O2 Flow Rate FiO2 01/27/20 09:10 84 149/56 01/27/20 07:00 98.2 16 100 Room Air 98.2 Physical Exam PHYSICAL EXAM GENERAL: Lying down, eyes closed, in NAD HEENT: Pupils small and equal NECK: Supple LUNGS: Clear, no accessory muscle use HEART: S1, S2. regular ABDOMEN: Soft, no guarding EXTREMITIES: No edema, no cyanosis, no clubbing. Previous amputation site, left great and second toe scar intact. No draining wounds. SKIN: warm to touch. No generalized rash. ALMOND BLANCHER HAND: Minimally arousable to tactile stimuli PIV looks ok Labs Lab Laboratory Tests Test 01/26/20 11:48 01/26/20 17:25 01/26/20 20:43 01/27/20 05:26 Glucose (Fingerstick) 178 mg/dL (70-99) 185 mg/dL (70-99) 231 mg/dL (70-99) White Blood Count 7.6 x10^3/uL (4.0-11.0) Red Blood Count 4.40 x10^6/uL (3.50-5.40) Hemoglobin 11.3 g/dL (12.0-15.5) Hematocrit 35.1 % (36.0-47.0) Mean Corpuscular Volume 80 fL (79-100) Mean Corpuscular Hemoglobin 26 pg (25-35) Mean Corpuscular Hemoglobin Concent 32 g/dL (31-37) Red Cell Distribution Width 15.8 % (11.5-14.5) Platelet Count 248 x10^3/uL (140-400) Neutrophils (%) (Auto) 71 % (31-73) Lymphocytes (%) (Auto) 16 % (24-48) Monocytes (%) (Auto) 10 % (0-9) Eosinophils (%) (Auto) 3 % (0-3) Basophils (%) (Auto) 0 % (0-3) Neutrophils # (Auto) 5.4 x10^3/uL (1.8-7.7) Lymphocytes # (Auto) 1.2 x10^3/uL (1.0-4.8) Monocytes # (Auto) 0.7 x10^3/uL (0.0-1.1) Eosinophils # (Auto) 0.2 x10^3/uL (0.0-0.7) Basophils # (Auto) 0.0 x10^3/uL (0.0-0.2) Sodium Level 136 mmol/L (136-145) Potassium Level 5.1 mmol/L (3.5-5.1) Chloride Level 103 mmol/L (98-107) Carbon Dioxide Level 23 mmol/L (21-32) Anion Gap 10 (6-14) Blood Urea Nitrogen 41 mg/dL (7-20) Creatinine 1.3 mg/dL (0.6-1.0) Estimated GFR (Cockcroft-Gault) 49.6 Glucose Level 243 mg/dL (70-99) Calcium Level 9.8 mg/dL (8.5-10.1) Test 01/27/20 07:22 Glucose (Fingerstick) 239 mg/dL (70-99) Micro Cultures negative Objective Assessment Encephalopathy. Brain MRI neg acute findings History of epilepsy. Diabetes with peripheral neuropathy. h/o disseminated cryptococcus, on fluconazole. Gastroesophageal reflux disease. History of kidney transplant. Peripheral arterial disease. Chronic kidney disease, status post renal transplant. Coronary artery disease. COVID-19 neg, 01/23 Plan Plan of Care chronic fluconazole treatment Cryto Ag still pending Maintain aspiration precaution Supportive care Will get lumbar puncture done Discussed with SHEN Son MD Jan 27, 2020 10:10
--- NOTE | 2020-01-27 12:04 | PDOC ---
PULMONARY PROGRESS NOTES Subjective no sob, cough, on ra Vitals Vital Signs Date Time Temp Pulse Resp B/P (MAP) Pulse Ox O2 Delivery O2 Flow Rate FiO2 01/27/20 11:32 98.5 83 15 155/53 (87) 97 Room Air 98.5 ROS: No Nausea General: Alert, No acute distress Lungs: Clear Cardiovascular: S1, S2 Abdomen: Soft, Non-tender Neuro Exam: Alert Extremities: Other Skin: Warm Labs Laboratory Tests Test 01/25/20 13:19 01/25/20 16:38 01/25/20 20:21 01/26/20 04:50 Glucose (Fingerstick) 225 mg/dL (70-99) 131 mg/dL (70-99) 191 mg/dL (70-99) Sodium Level 140 mmol/L (136-145) Potassium Level 5.0 mmol/L (3.5-5.1) Chloride Level 107 mmol/L (98-107) Carbon Dioxide Level 26 mmol/L (21-32) Anion Gap 7 (6-14) Blood Urea Nitrogen 26 mg/dL (7-20) Creatinine 1.2 mg/dL (0.6-1.0) Estimated GFR (Cockcroft-Gault) 54.4 Glucose Level 220 mg/dL (70-99) Calcium Level 9.8 mg/dL (8.5-10.1) Test 01/26/20 07:49 01/26/20 11:48 01/26/20 17:25 01/26/20 20:43 Glucose (Fingerstick) 191 mg/dL (70-99) 178 mg/dL (70-99) 185 mg/dL (70-99) 231 mg/dL (70-99) Test 01/27/20 05:26 01/27/20 07:22 01/27/20 11:18 White Blood Count 7.6 x10^3/uL (4.0-11.0) Red Blood Count 4.40 x10^6/uL (3.50-5.40) Hemoglobin 11.3 g/dL (12.0-15.5) Hematocrit 35.1 % (36.0-47.0) Mean Corpuscular Volume 80 fL (79-100) Mean Corpuscular Hemoglobin 26 pg (25-35) Mean Corpuscular Hemoglobin Concent 32 g/dL (31-37) Red Cell Distribution Width 15.8 % (11.5-14.5) Platelet Count 248 x10^3/uL (140-400) Neutrophils (%) (Auto) 71 % (31-73) Lymphocytes (%) (Auto) 16 % (24-48) Monocytes (%) (Auto) 10 % (0-9) Eosinophils (%) (Auto) 3 % (0-3) Basophils (%) (Auto) 0 % (0-3) Neutrophils # (Auto) 5.4 x10^3/uL (1.8-7.7) Lymphocytes # (Auto) 1.2 x10^3/uL (1.0-4.8) Monocytes # (Auto) 0.7 x10^3/uL (0.0-1.1) Eosinophils # (Auto) 0.2 x10^3/uL (0.0-0.7) Basophils # (Auto) 0.0 x10^3/uL (0.0-0.2) Sodium Level 136 mmol/L (136-145) Potassium Level 5.1 mmol/L (3.5-5.1) Chloride Level 103 mmol/L (98-107) Carbon Dioxide Level 23 mmol/L (21-32) Anion Gap 10 (6-14) Blood Urea Nitrogen 41 mg/dL (7-20) Creatinine 1.3 mg/dL (0.6-1.0) Estimated GFR (Cockcroft-Gault) 49.6 Glucose Level 243 mg/dL (70-99) Calcium Level 9.8 mg/dL (8.5-10.1) Glucose (Fingerstick) 239 mg/dL (70-99) 193 mg/dL (70-99) Laboratory Tests Test 01/26/20 17:25 01/26/20 20:43 01/27/20 05:26 01/27/20 07:22 Glucose (Fingerstick) 185 mg/dL (70-99) 231 mg/dL (70-99) 239 mg/dL (70-99) White Blood Count 7.6 x10^3/uL (4.0-11.0) Red Blood Count 4.40 x10^6/uL (3.50-5.40) Hemoglobin 11.3 g/dL (12.0-15.5) Hematocrit 35.1 % (36.0-47.0) Mean Corpuscular Volume 80 fL (79-100) Mean Corpuscular Hemoglobin 26 pg (25-35) Mean Corpuscular Hemoglobin Concent 32 g/dL (31-37) Red Cell Distribution Width 15.8 % (11.5-14.5) Platelet Count 248 x10^3/uL (140-400) Neutrophils (%) (Auto) 71 % (31-73) Lymphocytes (%) (Auto) 16 % (24-48) Monocytes (%) (Auto) 10 % (0-9) Eosinophils (%) (Auto) 3 % (0-3) Basophils (%) (Auto) 0 % (0-3) Neutrophils # (Auto) 5.4 x10^3/uL (1.8-7.7) Lymphocytes # (Auto) 1.2 x10^3/uL (1.0-4.8) Monocytes # (Auto) 0.7 x10^3/uL (0.0-1.1) Eosinophils # (Auto) 0.2 x10^3/uL (0.0-0.7) Basophils # (Auto) 0.0 x10^3/uL (0.0-0.2) Sodium Level 136 mmol/L (136-145) Potassium Level 5.1 mmol/L (3.5-5.1) Chloride Level 103 mmol/L (98-107) Carbon Dioxide Level 23 mmol/L (21-32) Anion Gap 10 (6-14) Blood Urea Nitrogen 41 mg/dL (7-20) Creatinine 1.3 mg/dL (0.6-1.0) Estimated GFR (Cockcroft-Gault) 49.6 Glucose Level 243 mg/dL (70-99) Calcium Level 9.8 mg/dL (8.5-10.1) Test 01/27/20 11:18 Glucose (Fingerstick) 193 mg/dL (70-99) Medications Active Scripts Medications Dose Route/Sig Max Daily Dose Days Date Category Dose Instructions Zyprexa (Olanzapine) 10 Mg Tablet 1 Tab PO QHS 01/24/20 Reported Trazodone Hcl 50 Mg Tablet 1 Tab PO QHS 01/24/20 Reported Seroquel (Quetiapine Fumarate) 25 Mg Tablet 25 Mg PO BID 01/24/20 Reported Humalog (Insulin Lispro) 100 Unit/1 Ml Vial 2 Unit SQ DAILYBFRLUN 01/24/20 Reported Lisinopril 20 Mg Tablet 1 Tab PO DAILY 01/24/20 Reported Acetaminophen 500 Mg Tablet 2 Tab PO PRN Q8HRS PRN 15 09/25/19 Reported Prednisone 1 Mg Tablet 2 Mg PO DAILY 09/25/19 Reported Humalog (Insulin Lispro) 100 Unit/1 Ml Vial 8 Unit SQ DAILYBFRSUP 09/25/19 Reported Humalog (Insulin Lispro) 100 Unit/1 Ml Vial 4 Unit SQ DAILYWBKFT 09/25/19 Reported Hydralazine Hcl 25 Mg Tablet 1 Tab PO BID 09/25/19 Reported Aspir-Low (Aspirin) 81 Mg Tablet.dr 1 Tab PO DAILY 09/25/19 Reported Diflucan (Fluconazole) 100 Mg Tablet 200 Mg PO DAILY 04/30/16 Rx Prograf (Tacrolimus) 1 Mg Capsule 0.5 Mg PO BID 03/22/16 Reported Levemir (Insulin Detemir) 100 Unit/1 Ml Vial 18 Unit SQ QHS 02/25/16 Reported Hold for FSBS below 90 and call Nephro-Stacey Tablet (Folic Acid/Vitamin B Comp W-C) 0.8 Mg Tablet 1 Tab PO DAILY 02/25/16 Reported Levetiracetam 500 Mg Tablet 500 Mg PO BID 01/17/14 Reported Impression . IMPRESSION: 1. The patient with stable lung nodules. Latest ct chest is from October 2019.. She has a 2 cm pleural based nodule in the right upper lobe, which is unchanged since 2018. In addition, she also has nodular opacity in the right lower lobe measuring about 1 cm in size. There is a 2 mm nodular opacity in the inferior aspect of the right lower lobe, which is unchanged. All these nodules have been stable since her CAT scan from 2019 as well as a CAT scan of the chest from 12/19/2017. Likely, this is a benign etiology. 2. Encephalopathy. improving 3. Stroke-like symptoms. Neurology has been consulted. She has prior history of seizures and metabolic encephalopathy and we will follow Neurology recommendations. Plan . RECOMMENDATIONS: 1. From a pulmonary standpoint when comparisons were made to the nodules from 2018, they all have been stable. The last CT chest was from 10/2019 and oldest one is from 11/2017. These are likely benign nodules and have been stable for 2 years. no need for any further followup on CT chest. 2. Follow Neurology recommendation. mri no acute abnl, old cva 3. Follow Nephrology recommendation. 4. Minimize benzodiazepines. avoid oversedation 5. covid19 neg Discussed with RN. We will follow along with you. JOAQUIM POLANCO MD Jan 27, 2020 12:04
[2020-01-27 14:48] LABS: CSF CLARITY CLEAR; CSF COLOR COLORLESS
[2020-01-27 14:49] LABS: CSF RBC COUNT 3 /cmm (Not Established); CSF WBC COUNT 0 /cmm (Not Established)
--- NOTE | 2020-01-27 16:32 | RAD ---
Fluoroscopically Guided Lumbar Puncture for CSF Sampling: Clinical History: Altered mental status. Procedure: The relative benefits, risks and alternatives to the procedure were discussed and verbal written informed consent was obtained. The patient was placed prone and slightly oblique on the fluoroscopic table and bony landmarks were used to plan for a lumbar puncture. The patient was carefully prepped and draped in a sterile fashion and with local anesthetic and sterile technique, a 20 gauge needle was advanced at the L1-L2 level. Clear CSF was seen and approximately 9.5 cc of clear fluid was aspirated and sent for testing. The procedure was well tolerated and the patient was sent to Recovery in good condition. Patient was later sent back to the inpatient floor for further care and management.. Total patient fluoro time: 0.8 minutes. A single image was captured for procedural documentation. Impression: Status post fluoroscopic guided lumbar puncture for spinal tap. Electronically signed by: Rosnane Holland MD (01/27/2020 4:29 PM) [id number]
[2020-01-27] MEDS: INSULIN GLARGINE SYRINGE. SQ SCH (21:22)
[2020-01-28] VITALS (7 sets, daily range): BP systolic 96–189; BP diastolic 27–91
[2020-01-28 04:37] LABS: BASO % 0 % (0-3); EOS # 0.2 x10^3/uL (0.0-0.7); EOS % 3 % (0-3); HEMATOCRIT 35.4 % (36.0-47.0); HEMOGLOBIN 11.3 g/dL (12.0-15.5); LYMPH # 1.2 x10^3/uL (1.0-4.8); LYMPH % 16 % (24-48); MEAN CORPUSCULAR HEMOGLOBIN 25 pg (25-35); MEAN CORPUSCULAR HGB CONC 32 g/dL (31-37); MEAN CORPUSCULAR VOLUME 80 fL (79-100); MONO # 0.7 x10^3/uL (0.0-1.1); MONO % 10 % (0-9); NEUT # 5.3 x10^3/uL (1.8-7.7); NEUT % 71 % (31-73); PLATELET COUNT 253 x10^3/uL (140-400); RED BLOOD COUNT 4.45 x10^6/uL (3.50-5.40); RED CELL DISTRIBUTION WIDTH 16.3 % (11.5-14.5); WHITE BLOOD COUNT 7.5 x10^3/uL (4.0-11.0)
[2020-01-28 04:41] LABS: CALCIUM 10.2 mg/dL (8.5-10.1); CREATININE 1.3 mg/dL (0.6-1.0); GFR 49.6; POTASSIUM 5.3 mmol/L (3.5-5.1)
[2020-01-28] MEDS: FLUCONAZOLE 100 MG TABLET. PO SCH (08:39)
[2020-01-28] MEDS: TACROLIMUS 0.5 MG CAPSULE PO SCH ×2 (08:39→22:18)
[2020-01-28] MEDS: levETIRAcetam 500 MG TABLET PO SCH ×2 (08:40→22:18)
[2020-01-28] MEDS: predniSONE 5 MG TABLET PO SCH (08:40)
[2020-01-28] MEDS: LISINOPRIL 20 MG TABLET PO SCH (08:40)
[2020-01-28] MEDS: ASPIRIN ENTERIC COATED 325 MG TABLET.DR. PO SCH (08:40)
[2020-01-28] MEDS: FOLIC/VIT B COMP W-C (RENAL) TABLET. PO SCH (08:40)
[2020-01-28] MEDS: hydrALAZINE 25 MG TABLET PO SCH ×2 (08:40→22:19)
[2020-01-28] MEDS: INSULIN LISPRO 300 UNITS/3 ML VIAL. SQ SCH ×3 (08:49→17:13)
--- NOTE | 2020-01-28 09:34 | PDOC ---
PROGRESS NOTES Assessment Problems Medical Problems: (1) Cough Status: Acute (2) Left-sided weakness Status: Acute Metabolic encephalopathy No acute stroke. Dementia and multiple psychiatric diagnoses. 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 Diabetic peripheral neuropathy Ruled out COVID Note LP done, negative, elevated protein in isolation is nonspecific, may be seen, for instance, in diabetes Medical issues: status-post renal transplant, chronic allograft nephropathy, CKD stage 3, istory of disseminated Cryptococcus, coronary artery disease, anemia, lung nodules Plan No additional stroke or TIA workup required Levetiracetam No further neurological tests or treatment Return to [facility] when medically stable Subjective No complaints Objective Vital Signs Date Time Temp Pulse Resp B/P (MAP) Pulse Ox O2 Delivery O2 Flow Rate FiO2 01/28/20 08:40 85 189/35 01/28/20 07:46 97.6 17 99 Room Air 97.6 Intake and Output 01/28/20 06:59 Intake Total 0 ml Balance 0 ml Intake Oral 0 ml # Voids 6 PHYSICAL EXAM Alert. Oriented only to person. PERRL. EOMI. CN: no focal findings. Muscle tone: normal. Muscle strength: 4/5 DTR: 1+ Plantar reflex: flexor Gait: not examined in bed. Sensory exam: stocking loss. Cerebellar: Not cooperative Review of Relevant I have reviewed the following items warner (where applicable) has been applied. Labs Laboratory Tests Test 01/26/20 11:48 01/26/20 17:25 01/26/20 20:43 01/27/20 05:26 Glucose (Fingerstick) 178 mg/dL (70-99) 185 mg/dL (70-99) 231 mg/dL (70-99) White Blood Count 7.6 x10^3/uL (4.0-11.0) Red Blood Count 4.40 x10^6/uL (3.50-5.40) Hemoglobin 11.3 g/dL (12.0-15.5) Hematocrit 35.1 % (36.0-47.0) Mean Corpuscular Volume 80 fL (79-100) Mean Corpuscular Hemoglobin 26 pg (25-35) Mean Corpuscular Hemoglobin Concent 32 g/dL (31-37) Red Cell Distribution Width 15.8 % (11.5-14.5) Platelet Count 248 x10^3/uL (140-400) Neutrophils (%) (Auto) 71 % (31-73) Lymphocytes (%) (Auto) 16 % (24-48) Monocytes (%) (Auto) 10 % (0-9) Eosinophils (%) (Auto) 3 % (0-3) Basophils (%) (Auto) 0 % (0-3) Neutrophils # (Auto) 5.4 x10^3/uL (1.8-7.7) Lymphocytes # (Auto) 1.2 x10^3/uL (1.0-4.8) Monocytes # (Auto) 0.7 x10^3/uL (0.0-1.1) Eosinophils # (Auto) 0.2 x10^3/uL (0.0-0.7) Basophils # (Auto) 0.0 x10^3/uL (0.0-0.2) Sodium Level 136 mmol/L (136-145) Potassium Level 5.1 mmol/L (3.5-5.1) Chloride Level 103 mmol/L (98-107) Carbon Dioxide Level 23 mmol/L (21-32) Anion Gap 10 (6-14) Blood Urea Nitrogen 41 mg/dL (7-20) Creatinine 1.3 mg/dL (0.6-1.0) Estimated GFR (Cockcroft-Gault) 49.6 Glucose Level 243 mg/dL (70-99) Calcium Level 9.8 mg/dL (8.5-10.1) Test 01/27/20 07:22 01/27/20 11:18 01/27/20 14:25 01/27/20 16:26 Glucose (Fingerstick) 239 mg/dL (70-99) 193 mg/dL (70-99) 158 mg/dL (70-99) CSF Color Colorless CSF Clarity Clear CSF WBC 0 /cmm (Not Established) CSF RBC 3 /cmm (Not Established) CSF Glucose 130 mg/dL (37-70) CSF Total Protein 99.0 mg/dL (15.0-45.0) Test 01/27/20 20:41 01/28/20 03:45 01/28/20 07:18 Glucose (Fingerstick) 126 mg/dL (70-99) 253 mg/dL (70-99) White Blood Count 7.5 x10^3/uL (4.0-11.0) Red Blood Count 4.45 x10^6/uL (3.50-5.40) Hemoglobin 11.3 g/dL (12.0-15.5) Hematocrit 35.4 % (36.0-47.0) Mean Corpuscular Volume 80 fL (79-100) Mean Corpuscular Hemoglobin 25 pg (25-35) Mean Corpuscular Hemoglobin Concent 32 g/dL (31-37) Red Cell Distribution Width 16.3 % (11.5-14.5) Platelet Count 253 x10^3/uL (140-400) Neutrophils (%) (Auto) 71 % (31-73) Lymphocytes (%) (Auto) 16 % (24-48) Monocytes (%) (Auto) 10 % (0-9) Eosinophils (%) (Auto) 3 % (0-3) Basophils (%) (Auto) 0 % (0-3) Neutrophils # (Auto) 5.3 x10^3/uL (1.8-7.7) Lymphocytes # (Auto) 1.2 x10^3/uL (1.0-4.8) Monocytes # (Auto) 0.7 x10^3/uL (0.0-1.1) Eosinophils # (Auto) 0.2 x10^3/uL (0.0-0.7) Basophils # (Auto) 0.0 x10^3/uL (0.0-0.2) Sodium Level 136 mmol/L (136-145) Potassium Level 5.3 mmol/L (3.5-5.1) Chloride Level 104 mmol/L (98-107) Carbon Dioxide Level 22 mmol/L (21-32) Anion Gap 10 (6-14) Blood Urea Nitrogen 37 mg/dL (7-20) Creatinine 1.3 mg/dL (0.6-1.0) Estimated GFR (Cockcroft-Gault) 49.6 Glucose Level 243 mg/dL (70-99) Calcium Level 10.2 mg/dL (8.5-10.1) Laboratory Tests Test 01/27/20 11:18 01/27/20 14:25 01/27/20 16:26 01/27/20 20:41 Glucose (Fingerstick) 193 mg/dL (70-99) 158 mg/dL (70-99) 126 mg/dL (70-99) CSF Color Colorless CSF Clarity Clear CSF WBC 0 /cmm (Not Established) CSF RBC 3 /cmm (Not Established) CSF Glucose 130 mg/dL (37-70) CSF Total Protein 99.0 mg/dL (15.0-45.0) Test 01/28/20 03:45 01/28/20 07:18 White Blood Count 7.5 x10^3/uL (4.0-11.0) Red Blood Count 4.45 x10^6/uL (3.50-5.40) Hemoglobin 11.3 g/dL (12.0-15.5) Hematocrit 35.4 % (36.0-47.0) Mean Corpuscular Volume 80 fL (79-100) Mean Corpuscular Hemoglobin 25 pg (25-35) Mean Corpuscular Hemoglobin Concent 32 g/dL (31-37) Red Cell Distribution Width 16.3 % (11.5-14.5) Platelet Count 253 x10^3/uL (140-400) Neutrophils (%) (Auto) 71 % (31-73) Lymphocytes (%) (Auto) 16 % (24-48) Monocytes (%) (Auto) 10 % (0-9) Eosinophils (%) (Auto) 3 % (0-3) Basophils (%) (Auto) 0 % (0-3) Neutrophils # (Auto) 5.3 x10^3/uL (1.8-7.7) Lymphocytes # (Auto) 1.2 x10^3/uL (1.0-4.8) Monocytes # (Auto) 0.7 x10^3/uL (0.0-1.1) Eosinophils # (Auto) 0.2 x10^3/uL (0.0-0.7) Basophils # (Auto) 0.0 x10^3/uL (0.0-0.2) Sodium Level 136 mmol/L (136-145) Potassium Level 5.3 mmol/L (3.5-5.1) Chloride Level 104 mmol/L (98-107) Carbon Dioxide Level 22 mmol/L (21-32) Anion Gap 10 (6-14) Blood Urea Nitrogen 37 mg/dL (7-20) Creatinine 1.3 mg/dL (0.6-1.0) Estimated GFR (Cockcroft-Gault) 49.6 Glucose Level 243 mg/dL (70-99) Calcium Level 10.2 mg/dL (8.5-10.1) Glucose (Fingerstick) 253 mg/dL (70-99) Medications Current Medications Clonidine HCl (Catapres) 0.2 mg 1X ONCE PO Last administered on 01/23/20at 17:38; Start 01/23/20 at 17:30; Stop 01/23/20 at 17:31; Status DC Ondansetron HCl (Zofran) 4 mg PRN Q8HRS PRN IV NAUSEA/VOMITING; Start 01/23/20 at 17:45; Stop 01/24/20 at 17:44; Status DC Morphine Sulfate (Morphine Sulfate) 2 mg PRN Q2HR PRN IV PAIN; Start 01/23/20 at 17:45; Stop 01/24/20 at 17:44; Status DC Dextrose/Sodium Chloride 1,000 ml @ 100 mls/hr 1X ONCE IV Last administered on 01/23/20at 19:24; Start 01/23/20 at 17:45; Stop 01/24/20 at 03:44; Status DC Pharmacy Consult (C.diff Med Screen By Rx) 1 each 1X ONCE [facility] Last administered on 01/24/20at 08:26; Start 01/24/20 at 09:00; Stop 01/24/20 at 09:01; Status DC Labetalol HCl (Normodyne Iv Push) 20 mg PRN Q4HRS PRN IVP HYPERTENSION, 2nd choice Last administered on 01/26/20at 00:17; Start 01/24/20 at 04:15 Clonidine HCl (Catapres Tts-3) 1 patch WEEKLY TD ; Start 01/24/20 at 09:00; Stop 01/24/20 at 05:21; Status DC Piperacillin Sod/ Tazobactam Sod (Zosyn Per Pharmacy) 1 each PRN DAILY PRN [facility] SEE COMMENTS; Start 01/24/20 at 04:30; Stop 01/24/20 at 09:32; Status DC Piperacillin Sod/ Tazobactam Sod 3.375 gm/Sodium Chloride 50 ml @ 100 mls/hr Q6H IV Last administered on 01/24/20at 05:06; Start 01/24/20 at 05:00; Stop 01/24/20 at 09:30; Status DC Clonidine HCl (Catapres Tts-3) 1 patch WEEKLY TD Last administered on 01/24/20at 15:53; Start 01/24/20 at 16:00 Clonidine HCl (Catapres Tts-3) 1 patch 1X ONCE TD ; Start 01/24/20 at 05:30; Stop 01/24/20 at 05:31; Status DC Levetiracetam (Keppra) 500 mg BID PO ; Start 01/24/20 at 09:00; Status Cancel Acetaminophen (Tylenol) 650 mg PRN Q6HRS PRN PO TEMP > 100.4F; Start 01/24/20 at 08:30; Stop 01/26/20 at 12:00; Status DC Acetaminophen (Tylenol Supp) 650 mg PRN Q4HRS PRN [place] TEMP > 100.4F; Start 01/24/20 at 08:30 Aspirin (Ecotrin) 325 mg DAILYWBKFT PO Last administered on 01/28/20at 08:40; Start 01/25/20 at 08:00 Aspirin (Aspirin Rectal Supp) 300 mg PRN DAILY PRN [place] IF UNABLE TO TAKE PO; Start 01/24/20 at 08:30 Lorazepam (Ativan Inj) 2 mg PRN Q4HRS PRN IVP ANXIETY / AGITATION Last administered on 01/24/20at 10:14; Start 01/24/20 at 10:00; Stop 01/24/20 at 16:35; Status DC Acetaminophen (Tylenol) 1,000 mg PRN Q8HRS PRN PO MILD PAIN OR FEVER; Start 01/24/20 at 10:15 Aspirin (Ecotrin) 81 mg DAILY PO ; Start 01/25/20 at 09:00; Status UNV Vitamin B Complex/ Vitamin C (Vicki-Stacey) 1 tab DAILY PO Last administered on 01/28/20at 08:40; Start 01/25/20 at 09:00 Hydralazine HCl (Apresoline) 25 mg BID PO Last administered on 01/28/20at 08:40; Start 01/24/20 at 21:00 Insulin Human Lispro (HumaLOG) 2 units DAILYWLUN SQ Last administered on 01/27/20at 13:09; Start 01/24/20 at 12:00 Insulin Human Lispro (HumaLOG) 4 units DAILYWBKFT SQ Last administered on 01/28/20at 08:49; Start 01/25/20 at 08:00 Insulin Human Lispro (HumaLOG) 8 units DAILYWSUP SQ Last administered on 01/27/20at 17:19; Start 01/24/20 at 17:00 Lisinopril (Prinivil) 20 mg DAILY PO Last administered on 01/28/20at 08:40; Start 01/24/20 at 12:00 Prednisone (Prednisone) 2 mg DAILY PO Last administered on 01/26/20at 10:15; Start 01/24/20 at 12:00; Stop 01/26/20 at 12:24; Status DC Quetiapine Fumarate (SEROquel) 25 mg BID PO Last administered on 01/26/20at 21:14; Start 01/24/20 at 12:00; Stop 01/27/20 at 09:52; Status DC Tacrolimus (Prograf) 0.5 mg BID PO Last administered on 01/28/20at 08:39; Start 01/24/20 at 12:00 Trazodone HCl (Desyrel) 50 mg QHS PO Last administered on 01/26/20at 21:14; Start 01/24/20 at 21:00; Stop 01/27/20 at 09:52; Status DC Fluconazole (Diflucan) 200 mg DAILY PO Last administered on 01/28/20at 08:39; Start 01/24/20 at 11:00 Insulin Glargine (Lantus Syringe) 18 unit QHS SQ ; Start 01/24/20 at 21:00; Stop 01/24/20 at 20:59; Status DC Olanzapine (ZyPREXA) 10 mg QHS PO Last administered on 01/26/20at 21:14; Start 01/24/20 at 21:00; Stop 01/27/20 at 09:52; Status DC Enoxaparin Sodium (Lovenox 40mg Syringe) 40 mg Q24H SQ Last administered on 01/26/20at 10:12; Start 01/24/20 at 11:00; Stop 01/26/20 at 12:24; Status DC Amino Acids/ Glycerin/ Electrolytes 1,000 ml @ 75 mls/hr [id number] IV Last administered on 01/27/20at 21:16; Start 01/24/20 at 13:45 Levetiracetam 500 mg/Dextrose 105 ml @ 420 mls/hr Q12HR IV Last administered on 01/26/20at 21:14; Start 01/24/20 at 13:45; Stop 01/27/20 at 08:47; Status DC Non-Formulary Medication 0.5 ea BID NG Last administered on 01/24/20at 21:12; Start 01/24/20 at 15:00; Stop 01/27/20 at 04:41; Status DC Lorazepam (Ativan Inj) 0.5 mg PRN Q4HRS PRN IVP ANXIETY / AGITATION Last administered on 01/25/20at 06:34; Start 01/24/20 at 16:45 Insulin Glargine (Lantus Syringe) 18 unit QHS SQ Last administered on 01/27/20at 21:22; Start 01/24/20 at 21:00 Dextrose (Dextrose 50%-Water Syringe) 12.5 gm PRN Q15MIN PRN IV SEE COMMENTS; Start 01/24/20 at 21:45 Enalaprilat (Vasotec Inj) 1.25 mg PRN Q6HRS PRN IVP HYPERTENSION, 1st choice; Start 01/25/20 at 12:00 Prednisone (Prednisone) 5 mg DAILY PO Last administered on 01/28/20at 08:40; Sta rt 01/27/20 at 09:00 Levetiracetam (Keppra) 500 mg BID PO Last administered on 01/28/20at 08:40; Start 01/27/20 at 09:00 Tacrolimus (Prograf Oral Susp) 0.5 mg STK-MED ONCE .ROUTE ; Start 01/24/20 at 21:00; Stop 01/27/20 at 14:30; Status DC Tacrolimus (Prograf Oral Susp) 0.5 mg STK-MED ONCE .ROUTE ; Start 01/24/20 at 21:00; Stop 01/27/20 at 14:30; Status DC Active Scripts Active Diflucan (Fluconazole) 100 Mg Tablet 200 Mg PO DAILY Reported Zyprexa (Olanzapine) 10 Mg Tablet 1 Tab PO QHS Trazodone Hcl 50 Mg Tablet 1 Tab PO QHS Seroquel (Quetiapine Fumarate) 25 Mg Tablet 25 Mg PO BID Humalog (Insulin Lispro) 100 Unit/1 Ml Vial 2 Unit SQ DAILYBFRLUN Lisinopril 20 Mg Tablet 1 Tab PO DAILY Acetaminophen 500 Mg Tablet 2 Tab PO PRN Q8HRS PRN 15 Days Prednisone 1 Mg Tablet 2 Mg PO DAILY Humalog (Insulin Lispro) 100 Unit/1 Ml Vial 8 Unit SQ DAILYBFRSUP Humalog (Insulin Lispro) 100 Unit/1 Ml Vial 4 Unit SQ DAILYWBKFT Hydralazine Hcl 25 Mg Tablet 1 Tab PO BID Aspir-Low (Aspirin) 81 Mg Tablet. 1 Tab PO DAILY Prograf (Tacrolimus) 1 Mg Capsule 0.5 Mg PO BID Levemir (Insulin Detemir) 100 Unit/1 Ml Vial 18 Unit SQ QHS Hold for FSBS below 90 and call Nephro-Stacey Tablet (Folic Acid/Vitamin B Comp W-C) 0.8 Mg Tablet 1 Tab PO DAILY Levetiracetam 500 Mg Tablet 500 Mg PO BID Vitals/I & O Vital Sign - Last 24 Hours 01/27/20 01/27/20 01/27/20 01/27/20 11:32 14:57 19:43 20:00 Temp 98.5 97.4 98.5 97.4 Pulse 83 77 74 Resp 20 B/P (MAP) 155/53 (87) 137/32 (67) 147/47 (80) Pulse Ox 97 100 99 O2 Delivery Room Air Room Air Room Air Room Air 01/27/20 01/27/20 01/28/20 01/28/20 21:17 23:16 03:38 07:46 Temp 98.0 97.7 97.6 98.0 97.7 97.6 Pulse 77 88 85 Resp 20 18 17 B/P (MAP) 147/47 146/47 (80) 159/49 (85) 189/35 (86) Pulse Ox 99 98 99 O2 Delivery Room Air Room Air Room Air 01/28/20 01/28/20 08:40 08:40 Pulse 85 85 B/P (MAP) 189/35 189/35 Intake and Output 01/27/20 01/27/20 01/28/20 14:59 22:59 06:59 Intake Total 0 ml Balance 0 ml Justicifation of Admission Dx: Justifications for Admission: Justification of Admission Dx: N/A ISELA WASHINGTON MD Jan 28, 2020 09:34
--- NOTE | 2020-01-28 09:36 | PDOC ---
PROGRESS NOTES Subjective Subjective slightly more awake today Objective Objective Vital Signs Date Time Temp Pulse Resp B/P (MAP) Pulse Ox O2 Delivery O2 Flow Rate FiO2 01/28/20 08:40 85 189/35 01/28/20 07:46 97.6 17 99 Room Air 97.6 Intake and Output 01/28/20 07:00 Intake Total 0 ml Balance 0 ml Intake Oral 0 ml # Voids 6 Physical Exam Abdomen: Normal bowel sounds, No tenderness Heart: Regular rate Extremities: No clubbing, No cyanosis General: No acute distress HEENT: Atraumatic, PERRLA Lungs: Clear to auscultation MUSCULOSKELETAL: No deformity, No swelling Neuro: Other (CONFUSED, lethargic) Skin: No breakdown Diagnosis Problem List Problems Medical Problems: (1) Cough Status: Acute (2) Left-sided weakness Status: Acute Assessment Assessment Problems Medical Problems: (1) Cough Status: Acute (2) Left-sided weakness Status: Acute Metabolic Encephalopathy. Brain MRI neg acute findings , old CVA History of epilepsy. Diabetes with peripheral neuropathy. h/o disseminated cryptococcus, on fluconazole. Gastroesophageal reflux disease. History of kidney transplant. Peripheral arterial disease. Chronic kidney disease, status post renal transplant. Coronary artery disease.s/p cabg COVID-19 neg, 01/23 Plan Plan of Care:PT/OT /Rehab consult spinal tap today 01/27/20. wbc 0, protein 90 elevated holding Lovenox for spinal tap. spoke with pts daughter Stacia. labs reviewed, cryptococal antigen titre1;40 high in serum Needs central line+procalamine d/c zyprexa+seroquel +Trazadone, Pt admitted to hospitalist service,transferred to my care 01/26/20. Plan Plan of Care Problems Medical Problems: (1) Cough Status: Acute (2) Left-sided weakness Status: Acute Comment Review of Relevant I have reviewed the following items warner (where applicable) has been applied. Labs Laboratory Tests Test 01/27/20 11:18 01/27/20 14:25 01/27/20 16:26 01/27/20 20:41 Glucose (Fingerstick) 193 mg/dL (70-99) 158 mg/dL (70-99) 126 mg/dL (70-99) CSF Color Colorless CSF Clarity Clear CSF WBC 0 /cmm (Not Established) CSF RBC 3 /cmm (Not Established) CSF Glucose 130 mg/dL (37-70) CSF Total Protein 99.0 mg/dL (15.0-45.0) Test 01/28/20 03:45 01/28/20 07:18 White Blood Count 7.5 x10^3/uL (4.0-11.0) Red Blood Count 4.45 x10^6/uL (3.50-5.40) Hemoglobin 11.3 g/dL (12.0-15.5) Hematocrit 35.4 % (36.0-47.0) Mean Corpuscular Volume 80 fL (79-100) Mean Corpuscular Hemoglobin 25 pg (25-35) Mean Corpuscular Hemoglobin Concent 32 g/dL (31-37) Red Cell Distribution Width 16.3 % (11.5-14.5) Platelet Count 253 x10^3/uL (140-400) Neutrophils (%) (Auto) 71 % (31-73) Lymphocytes (%) (Auto) 16 % (24-48) Monocytes (%) (Auto) 10 % (0-9) Eosinophils (%) (Auto) 3 % (0-3) Basophils (%) (Auto) 0 % (0-3) Neutrophils # (Auto) 5.3 x10^3/uL (1.8-7.7) Lymphocytes # (Auto) 1.2 x10^3/uL (1.0-4.8) Monocytes # (Auto) 0.7 x10^3/uL (0.0-1.1) Eosinophils # (Auto) 0.2 x10^3/uL (0.0-0.7) Basophils # (Auto) 0.0 x10^3/uL (0.0-0.2) Sodium Level 136 mmol/L (136-145) Potassium Level 5.3 mmol/L (3.5-5.1) Chloride Level 104 mmol/L (98-107) Carbon Dioxide Level 22 mmol/L (21-32) Anion Gap 10 (6-14) Blood Urea Nitrogen 37 mg/dL (7-20) Creatinine 1.3 mg/dL (0.6-1.0) Estimated GFR (Cockcroft-Gault) 49.6 Glucose Level 243 mg/dL (70-99) Calcium Level 10.2 mg/dL (8.5-10.1) Glucose (Fingerstick) 253 mg/dL (70-99) Vitals/I & O Vital Sign - Last 24 Hours 01/27/20 01/27/20 01/27/20 01/27/20 11:32 14:57 19:43 20:00 Temp 98.5 97.4 98.5 97.4 Pulse 83 77 74 Resp 15 17 20 B/P (MAP) 155/53 (87) 137/32 (67) 147/47 (80) Pulse Ox 97 100 99 O2 Delivery Room Air Room Air Room Air Room Air 01/27/20 01/27/20 01/28/20 01/28/20 21:17 23:16 03:38 07:46 Temp 98.0 97.7 97.6 98.0 97.7 97.6 Pulse 77 88 85 Resp 20 18 17 B/P (MAP) 147/47 146/47 (80) 159/49 (85) 189/35 (86) Pulse Ox 99 98 99 O2 Delivery Room Air Room Air Room Air 01/28/20 01/28/20 08:40 08:40 Pulse 85 85 B/P (MAP) 189/35 189/35 Intake and Output 01/27/20 01/27/20 01/28/20 15:00 23:00 07:00 Intake Total 0 ml Balance 0 ml Justicifation of Admission Dx: Justifications for Admission: Justification of Admission Dx: Yes Sepsis: Altered Mental Status Altered Mental Status: Altered Mental Status (immune compramised,s/p kidney transplant.) Nutrition Consultation Dietary Evaluation: Recommendations by RD: Dietary education by RD, Increase Calorie Intake, PPN/TPN Comments: Continue w/PPN for short-term nutrition support needs to supplement poor PO intake Continue w/diet per TRAFFIC CLERK, current diet dysphagia I w/honey thick liquids; recommend Ensure pudding w/lunch and dinner Expected Outcomes/Goals: Diet advancement - met, new goal established New goal 01/26: PO intake to meet >75% est needs Malnutrition Findings: Body Fat Depletion (Non Severe: Mild Depletion Weight Status: Appropriate AUGUSTO BRUNER MD Jan 28, 2020 09:36
--- NOTE | 2020-01-28 10:28 | PDOC ---
Infectious Disease Note Subjective Subjective Patient is more awake able to communicate and even smiled says feeling okay ROS ROS No nausea vomiting diarrhea chest pain shortness of breath or fever Vital Sign Vital Signs Vital Signs Date Time Temp Pulse Resp B/P (MAP) Pulse Ox O2 Delivery O2 Flow Rate FiO2 01/28/20 08:40 85 189/35 01/28/20 07:46 97.6 17 99 Room Air 97.6 Physical Exam PHYSICAL EXAM GENERAL: Lying down, eyes closed, in NAD HEENT: Pupils small and equal NECK: Supple LUNGS: Clear, no accessory muscle use HEART: S1, S2. regular ABDOMEN: Soft, no guarding EXTREMITIES: No edema, no cyanosis, no clubbing. Previous amputation site, left great and second toe scar intact. No draining wounds. SKIN: warm to touch. No generalized rash. NURSE PLASTICS: Minimally arousable to tactile stimuli PIV looks ok Labs Lab Laboratory Tests Test 01/27/20 11:18 01/27/20 14:25 01/27/20 16:26 01/27/20 20:41 Glucose (Fingerstick) 193 mg/dL (70-99) 158 mg/dL (70-99) 126 mg/dL (70-99) CSF Color Colorless CSF Clarity Clear CSF WBC 0 /cmm (Not Established) CSF RBC 3 /cmm (Not Established) CSF Glucose 130 mg/dL (37-70) CSF Total Protein 99.0 mg/dL (15.0-45.0) Test 01/28/20 03:45 01/28/20 07:18 White Blood Count 7.5 x10^3/uL (4.0-11.0) Red Blood Count 4.45 x10^6/uL (3.50-5.40) Hemoglobin 11.3 g/dL (12.0-15.5) Hematocrit 35.4 % (36.0-47.0) Mean Corpuscular Volume 80 fL (79-100) Mean Corpuscular Hemoglobin 25 pg (25-35) Mean Corpuscular Hemoglobin Concent 32 g/dL (31-37) Red Cell Distribution Width 16.3 % (11.5-14.5) Platelet Count 253 x10^3/uL (140-400) Neutrophils (%) (Auto) 71 % (31-73) Lymphocytes (%) (Auto) 16 % (24-48) Monocytes (%) (Auto) 10 % (0-9) Eosinophils (%) (Auto) 3 % (0-3) Basophils (%) (Auto) 0 % (0-3) Neutrophils # (Auto) 5.3 x10^3/uL (1.8-7.7) Lymphocytes # (Auto) 1.2 x10^3/uL (1.0-4.8) Monocytes # (Auto) 0.7 x10^3/uL (0.0-1.1) Eosinophils # (Auto) 0.2 x10^3/uL (0.0-0.7) Basophils # (Auto) 0.0 x10^3/uL (0.0-0.2) Sodium Level 136 mmol/L (136-145) Potassium Level 5.3 mmol/L (3.5-5.1) Chloride Level 104 mmol/L (98-107) Carbon Dioxide Level 22 mmol/L (21-32) Anion Gap 10 (6-14) Blood Urea Nitrogen 37 mg/dL (7-20) Creatinine 1.3 mg/dL (0.6-1.0) Estimated GFR (Cockcroft-Gault) 49.6 Glucose Level 243 mg/dL (70-99) Calcium Level 10.2 mg/dL (8.5-10.1) Glucose (Fingerstick) 253 mg/dL (70-99) Micro Cultures negative Cryptococcal antigen in the blood 1 is to 40 CSF unremarkable Cryptococcal antigen in the CSF is pending Objective Assessment Encephalopathy. Brain MRI neg acute findings History of epilepsy. Diabetes with peripheral neuropathy. h/o disseminated cryptococcus, on fluconazole. Gastroesophageal reflux disease. History of kidney transplant. Peripheral arterial disease. Chronic kidney disease, status post renal transplant. Coronary artery disease. COVID-19 neg, 01/23 Plan Plan of Care chronic fluconazole treatment All sedating medications have been stopped Maintain aspiration precaution Supportive care Discussed with SHEN Son MD Jan 28, 2020 10:28
[2020-01-28] MEDS: AMINO AC 3%/ELECTROLYTE/GLYCER 1,000 ML IV SCH (11:37)
--- NOTE | 2020-01-28 11:58 | PDOC ---
SUBJECTIVE ROS more awake able to communicate OBJECTIVE Vital Signs Vital Signs Date Time Temp Pulse Resp B/P (MAP) Pulse Ox O2 Delivery O2 Flow Rate FiO2 01/28/20 10:59 98.0 77 15 136/91 (106) 98 Room Air 98.0 I & 0 Intake and Output 01/28/20 07:00 Intake Total 0 ml Balance 0 ml Intake Oral 0 ml # Voids 6 PHYSICAL EXAM Physical Exam GENERAL: NAD HEENT: Oral mucosa moist. NECK: Supple LUNGS: No accessory muscle use HEART: S1, S2. 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 Brain MRI neg acute findings DM - managed by Primary Coronary artery disease s/p CABG anemia- stable COMMENT/RELEVANT DATA Meds Current Medications Medications (Trade) Dose Ordered Sig/Te Start Time Stop Time Status Last Admin Dose Admin Acetaminophen (Tylenol Supp) 650 mg PRN Q4HRS PRN 01/24/20 08:30 Acetaminophen (Tylenol) 1,000 mg PRN Q8HRS PRN 01/24/20 10:15 Amino Acids/ Glycerin/ Electrolytes 1,000 ml @ 75 mls/hr [id number] 01/24/20 13:45 01/28/20 11:37 75 MLS/HR Aspirin (Aspirin Rectal Supp) 300 mg PRN DAILY PRN 01/24/20 08:30 Aspirin (Ecotrin) 81 mg DAILY 01/25/20 09:00 UNV Clonidine HCl (Catapres Tts-3) 1 patch 1X ONCE 01/24/20 05:30 01/24/20 05:31 DC Clonidine HCl (Catapres) 0.2 mg 1X ONCE 01/23/20 17:30 01/23/20 17:31 DC 01/23/20 17:38 0.2 MG Dextrose (Dextrose 50%-Water Syringe) 12.5 gm PRN Q15MIN PRN 01/24/20 21:45 Dextrose/Sodium Chloride 1,000 ml @ 100 mls/hr 1X ONCE 01/23/20 17:45 01/24/20 03:44 DC 01/23/20 19:24 100 MLS/HR Enalaprilat (Vasotec Inj) 1.25 mg PRN Q6HRS PRN 01/25/20 12:00 Enoxaparin Sodium (Lovenox 40mg Syringe) 40 mg Q24H 01/24/20 11:00 01/26/20 12:24 DC 01/26/20 10:12 40 MG Fluconazole (Diflucan) 200 mg DAILY 01/24/20 11:00 01/28/20 08:39 200 MG Hydralazine HCl (Apresoline) 25 mg BID 01/24/20 21:00 01/28/20 08:40 25 MG Insulin Glargine (Lantus Syringe) 18 unit QHS 01/24/20 21:00 01/27/20 21:22 18 UNIT Insulin Human Lispro (HumaLOG) 8 units DAILYWSUP 01/24/20 17:00 01/27/20 17:19 8 UNITS Labetalol HCl (Normodyne Iv Push) 20 mg PRN Q4HRS PRN 01/24/20 04:15 01/26/20 00:17 20 MG Levetiracetam (Keppra) 500 mg BID 01/27/20 09:00 01/28/20 08:40 500 MG Levetiracetam 500 mg/Dextrose 105 ml @ 420 mls/hr Q12HR 01/24/20 13:45 01/27/20 08:47 DC 01/26/20 21:14 420 MLS/HR Lisinopril (Prinivil) 20 mg DAILY 01/24/20 12:00 01/28/20 08:40 20 MG Lorazepam (Ativan Inj) 0.5 mg PRN Q4HRS PRN 01/24/20 16:45 01/25/20 06:34 0.5 MG Morphine Sulfate (Morphine Sulfate) 2 mg PRN Q2HR PRN 01/23/20 17:45 01/24/20 17:44 DC Non-Formulary Medication 0.5 ea BID 01/24/20 15:00 01/27/20 04:41 DC 01/24/20 21:12 0.5 EA Olanzapine (ZyPREXA) 10 mg QHS 01/24/20 21:00 01/27/20 09:52 DC 01/26/20 21:14 10 MG Ondansetron HCl (Zofran) 4 mg PRN Q8HRS PRN 01/23/20 17:45 01/24/20 17:44 DC Pharmacy Consult (C.diff Med Screen By Rx) 1 each 1X ONCE 01/24/20 09:00 01/24/20 09:01 DC 01/24/20 08:26 1 EACH Piperacillin Sod/ Tazobactam Sod (Zosyn Per Pharmacy) 1 each PRN DAILY PRN 01/24/20 04:30 01/24/20 09:32 DC Piperacillin Sod/ Tazobactam Sod 3.375 gm/Sodium Chloride 50 ml @ 100 mls/hr Q6H 01/24/20 05:00 01/24/20 09:30 DC 01/24/20 05:06 100 MLS/HR Prednisone (Prednisone) 5 mg DAILY 01/27/20 09:00 01/28/20 08:40 5 MG Quetiapine Fumarate (SEROquel) 25 mg BID 01/24/20 12:00 01/27/20 09:52 DC 01/26/20 21:14 25 MG Tacrolimus (Prograf Oral Susp) 0.5 mg STK-MED ONCE 01/24/20 21:00 01/27/20 14:30 DC Tacrolimus (Prograf) 0.5 mg BID 01/24/20 12:00 01/28/20 08:39 0.5 MG Trazodone HCl (Desyrel) 50 mg QHS 01/24/20 21:00 01/27/20 09:52 DC 01/26/20 21:14 50 MG Vitamin B Complex/ Vitamin C (Vicki-Stacey) 1 tab DAILY 01/25/20 09:00 01/28/20 08:40 1 TAB Lab Laboratory Tests Test 01/27/20 14:25 01/27/20 16:26 01/27/20 20:41 01/28/20 03:45 CSF Color Colorless CSF Clarity Clear CSF WBC 0 /cmm (Not Established) CSF RBC 3 /cmm (Not Established) CSF Glucose 130 mg/dL (37-70) CSF Total Protein 99.0 mg/dL (15.0-45.0) Glucose (Fingerstick) 158 mg/dL (70-99) 126 mg/dL (70-99) White Blood Count 7.5 x10^3/uL (4.0-11.0) Red Blood Count 4.45 x10^6/uL (3.50-5.40) Hemoglobin 11.3 g/dL (12.0-15.5) Hematocrit 35.4 % (36.0-47.0) Mean Corpuscular Volume 80 fL (79-100) Mean Corpuscular Hemoglobin 25 pg (25-35) Mean Corpuscular Hemoglobin Concent 32 g/dL (31-37) Red Cell Distribution Width 16.3 % (11.5-14.5) Platelet Count 253 x10^3/uL (140-400) Neutrophils (%) (Auto) 71 % (31-73) Lymphocytes (%) (Auto) 16 % (24-48) Monocytes (%) (Auto) 10 % (0-9) Eosinophils (%) (Auto) 3 % (0-3) Basophils (%) (Auto) 0 % (0-3) Neutrophils # (Auto) 5.3 x10^3/uL (1.8-7.7) Lymphocytes # (Auto) 1.2 x10^3/uL (1.0-4.8) Monocytes # (Auto) 0.7 x10^3/uL (0.0-1.1) Eosinophils # (Auto) 0.2 x10^3/uL (0.0-0.7) Basophils # (Auto) 0.0 x10^3/uL (0.0-0.2) Sodium Level 136 mmol/L (136-145) Potassium Level 5.3 mmol/L (3.5-5.1) Chloride Level 104 mmol/L (98-107) Carbon Dioxide Level 22 mmol/L (21-32) Anion Gap 10 (6-14) Blood Urea Nitrogen 37 mg/dL (7-20) Creatinine 1.3 mg/dL (0.6-1.0) Estimated GFR (Cockcroft-Gault) 49.6 Glucose Level 243 mg/dL (70-99) Calcium Level 10.2 mg/dL (8.5-10.1) Test 01/28/20 07:18 01/28/20 11:33 Glucose (Fingerstick) 253 mg/dL (70-99) 213 mg/dL (70-99) Results All relevant outside records, renal labs, imaging studies, telemetry/EKG's were reviewed. Justicifation of Admission Dx: Justifications for Admission: Justification of Admission Dx: Yes Sepsis: Altered Mental Status Altered Mental Status: Altered Mental Status (immune compramised,s/p kidney transplant.) CASS HUITRON MD Jan 28, 2020 11:58
--- NOTE | 2020-01-28 12:42 | PDOC ---
PULMONARY PROGRESS NOTES Subjective no sob, cough, on ra Vitals Vital Signs Date Time Temp Pulse Resp B/P (MAP) Pulse Ox O2 Delivery O2 Flow Rate FiO2 01/28/20 10:59 98.0 77 15 136/91 (106) 98 Room Air 98.0 ROS: No Nausea General: Alert, No acute distress Lungs: Clear Cardiovascular: S1, S2 Abdomen: Soft, Non-tender Neuro Exam: Alert Extremities: Other Skin: Warm Labs Laboratory Tests Test 01/26/20 17:25 01/26/20 20:43 01/27/20 05:26 01/27/20 07:22 Glucose (Fingerstick) 185 mg/dL (70-99) 231 mg/dL (70-99) 239 mg/dL (70-99) White Blood Count 7.6 x10^3/uL (4.0-11.0) Red Blood Count 4.40 x10^6/uL (3.50-5.40) Hemoglobin 11.3 g/dL (12.0-15.5) Hematocrit 35.1 % (36.0-47.0) Mean Corpuscular Volume 80 fL (79-100) Mean Corpuscular Hemoglobin 26 pg (25-35) Mean Corpuscular Hemoglobin Concent 32 g/dL (31-37) Red Cell Distribution Width 15.8 % (11.5-14.5) Platelet Count 248 x10^3/uL (140-400) Neutrophils (%) (Auto) 71 % (31-73) Lymphocytes (%) (Auto) 16 % (24-48) Monocytes (%) (Auto) 10 % (0-9) Eosinophils (%) (Auto) 3 % (0-3) Basophils (%) (Auto) 0 % (0-3) Neutrophils # (Auto) 5.4 x10^3/uL (1.8-7.7) Lymphocytes # (Auto) 1.2 x10^3/uL (1.0-4.8) Monocytes # (Auto) 0.7 x10^3/uL (0.0-1.1) Eosinophils # (Auto) 0.2 x10^3/uL (0.0-0.7) Basophils # (Auto) 0.0 x10^3/uL (0.0-0.2) Sodium Level 136 mmol/L (136-145) Potassium Level 5.1 mmol/L (3.5-5.1) Chloride Level 103 mmol/L (98-107) Carbon Dioxide Level 23 mmol/L (21-32) Anion Gap 10 (6-14) Blood Urea Nitrogen 41 mg/dL (7-20) Creatinine 1.3 mg/dL (0.6-1.0) Estimated GFR (Cockcroft-Gault) 49.6 Glucose Level 243 mg/dL (70-99) Calcium Level 9.8 mg/dL (8.5-10.1) Test 01/27/20 11:18 01/27/20 14:25 01/27/20 16:26 01/27/20 20:41 Glucose (Fingerstick) 193 mg/dL (70-99) 158 mg/dL (70-99) 126 mg/dL (70-99) CSF Color Colorless CSF Clarity Clear CSF WBC 0 /cmm (Not Established) CSF RBC 3 /cmm (Not Established) CSF Glucose 130 mg/dL (37-70) CSF Total Protein 99.0 mg/dL (15.0-45.0) Test 01/28/20 03:45 01/28/20 07:18 01/28/20 11:33 White Blood Count 7.5 x10^3/uL (4.0-11.0) Red Blood Count 4.45 x10^6/uL (3.50-5.40) Hemoglobin 11.3 g/dL (12.0-15.5) Hematocrit 35.4 % (36.0-47.0) Mean Corpuscular Volume 80 fL (79-100) Mean Corpuscular Hemoglobin 25 pg (25-35) Mean Corpuscular Hemoglobin Concent 32 g/dL (31-37) Red Cell Distribution Width 16.3 % (11.5-14.5) Platelet Count 253 x10^3/uL (140-400) Neutrophils (%) (Auto) 71 % (31-73) Lymphocytes (%) (Auto) 16 % (24-48) Monocytes (%) (Auto) 10 % (0-9) Eosinophils (%) (Auto) 3 % (0-3) Basophils (%) (Auto) 0 % (0-3) Neutrophils # (Auto) 5.3 x10^3/uL (1.8-7.7) Lymphocytes # (Auto) 1.2 x10^3/uL (1.0-4.8) Monocytes # (Auto) 0.7 x10^3/uL (0.0-1.1) Eosinophils # (Auto) 0.2 x10^3/uL (0.0-0.7) Basophils # (Auto) 0.0 x10^3/uL (0.0-0.2) Sodium Level 136 mmol/L (136-145) Potassium Level 5.3 mmol/L (3.5-5.1) Chloride Level 104 mmol/L (98-107) Carbon Dioxide Level 22 mmol/L (21-32) Anion Gap 10 (6-14) Blood Urea Nitrogen 37 mg/dL (7-20) Creatinine 1.3 mg/dL (0.6-1.0) Estimated GFR (Cockcroft-Gault) 49.6 Glucose Level 243 mg/dL (70-99) Calcium Level 10.2 mg/dL (8.5-10.1) Glucose (Fingerstick) 253 mg/dL (70-99) 213 mg/dL (70-99) Laboratory Tests Test 01/27/20 14:25 01/27/20 16:26 01/27/20 20:41 01/28/20 03:45 CSF Color Colorless CSF Clarity Clear CSF WBC 0 /cmm (Not Established) CSF RBC 3 /cmm (Not Established) CSF Glucose 130 mg/dL (37-70) CSF Total Protein 99.0 mg/dL (15.0-45.0) Glucose (Fingerstick) 158 mg/dL (70-99) 126 mg/dL (70-99) White Blood Count 7.5 x10^3/uL (4.0-11.0) Red Blood Count 4.45 x10^6/uL (3.50-5.40) Hemoglobin 11.3 g/dL (12.0-15.5) Hematocrit 35.4 % (36.0-47.0) Mean Corpuscular Volume 80 fL (79-100) Mean Corpuscular Hemoglobin 25 pg (25-35) Mean Corpuscular Hemoglobin Concent 32 g/dL (31-37) Red Cell Distribution Width 16.3 % (11.5-14.5) Platelet Count 253 x10^3/uL (140-400) Neutrophils (%) (Auto) 71 % (31-73) Lymphocytes (%) (Auto) 16 % (24-48) Monocytes (%) (Auto) 10 % (0-9) Eosinophils (%) (Auto) 3 % (0-3) Basophils (%) (Auto) 0 % (0-3) Neutrophils # (Auto) 5.3 x10^3/uL (1.8-7.7) Lymphocytes # (Auto) 1.2 x10^3/uL (1.0-4.8) Monocytes # (Auto) 0.7 x10^3/uL (0.0-1.1) Eosinophils # (Auto) 0.2 x10^3/uL (0.0-0.7) Basophils # (Auto) 0.0 x10^3/uL (0.0-0.2) Sodium Level 136 mmol/L (136-145) Potassium Level 5.3 mmol/L (3.5-5.1) Chloride Level 104 mmol/L (98-107) Carbon Dioxide Level 22 mmol/L (21-32) Anion Gap 10 (6-14) Blood Urea Nitrogen 37 mg/dL (7-20) Creatinine 1.3 mg/dL (0.6-1.0) Estimated GFR (Cockcroft-Gault) 49.6 Glucose Level 243 mg/dL (70-99) Calcium Level 10.2 mg/dL (8.5-10.1) Test 01/28/20 07:18 01/28/20 11:33 Glucose (Fingerstick) 253 mg/dL (70-99) 213 mg/dL (70-99) Medications Active Scripts Medications Dose Route/Sig Max Daily Dose Days Date Category Dose Instructions Zyprexa (Olanzapine) 10 Mg Tablet 1 Tab PO QHS 01/24/20 Reported Trazodone Hcl 50 Mg Tablet 1 Tab PO QHS 01/24/20 Reported Seroquel (Quetiapine Fumarate) 25 Mg Tablet 25 Mg PO BID 01/24/20 Reported Humalog (Insulin Lispro) 100 Unit/1 Ml Vial 2 Unit SQ [id number] 01/24/20 Reported Lisinopril 20 Mg Tablet 1 Tab PO DAILY 01/24/20 Reported Acetaminophen 500 Mg Tablet 2 Tab PO PRN Q8HRS PRN 15 1/29/20 Reported Prednisone 1 Mg Tablet 2 Mg PO DAILY 09/25/19 Reported Humalog (Insulin Lispro) 100 Unit/1 Ml Vial 8 Unit SQ [id number] 09/25/19 Reported Humalog (Insulin Lispro) 100 Unit/1 Ml Vial 4 Unit SQ [id number] 09/25/19 Reported Hydralazine Hcl 25 Mg Tablet 1 Tab PO BID 09/25/19 Reported Aspir-Low (Aspirin) 81 Mg Tablet.dr 1 Tab PO DAILY 09/25/19 Reported Diflucan (Fluconazole) 100 Mg Tablet 200 Mg PO DAILY 04/30/16 Rx Prograf (Tacrolimus) 1 Mg Capsule 0.5 Mg PO BID 03/22/16 Reported Levemir (Insulin Detemir) 100 Unit/1 Ml Vial 18 Unit SQ QHS 02/25/16 Reported Hold for FSBS below 90 and call Nephro-Stacey Tablet (Folic Acid/Vitamin B Comp W-C) 0.8 Mg Tablet 1 Tab PO DAILY 02/25/16 Reported Levetiracetam 500 Mg Tablet 500 Mg PO BID 01/17/14 Reported Impression . IMPRESSION: 1. The patient with stable lung nodules. Latest ct chest is from October 2019.. She has a 2 cm pleural based nodule in the right upper lobe, which is unchanged since 2018. In addition, she also has nodular opacity in the right lower lobe measuring about 1 cm in size. There is a 2 mm nodular opacity in the inferior aspect of the right lower lobe, which is unchanged. All these nodules have been stable since her CAT scan from 2019 as well as a CAT scan of the chest from 12/19/2017. Likely, this is a benign etiology. 2. Encephalopathy. 3. Stroke-like symptoms. Neurology has been consulted. She has prior history of seizures and metabolic encephalopathy and we will follow Neurology recommendations. Plan . RECOMMENDATIONS: 1. From a pulmonary standpoint when comparisons were made to the nodules from 2018, they all have been stable. The last CT chest was from 10/2019 and oldest one is from 11/2017. These are likely benign nodules and have been stable for 2 years. no need for any further followup on CT chest. 2. Follow Neurology recommendation. mri no acute abnl, old cva 3. Follow Nephrology recommendation. 4. Minimize benzodiazepines. avoid oversedation 5. covid19 neg Discussed with RN. Not much to add will sign off JOAQUIM POLANCO MD Jan 28, 2020 12:42
--- NOTE | 2020-01-28 14:17 | CONS ---
DATE OF CONSULTATION: 01/28/2020 ATTENDING PHYSICIAN: Jesus Moran MD REASON FOR CONSULTATION: The patient was seen at the request of Dr. Moran for rehab evaluation. HISTORY OF PRESENT ILLNESS: This is a 64-year-old female known to me. Last time I saw her is in 08/2016. The patient with coronary artery disease, anemia, diabetes mellitus, hypertension, hyperlipidemia, MRSA, renal failure, seizure disorder, encephalopathy, chronic pain, bypass surgery, hysterectomy, kidney transplant and arteriovenous fistula. KNOWN ALLERGIC TO ADHESIVE. Family history of coronary artery disease. The patient has [facility] a [facility]. She was admitted on 01/23/2020 with shortness of breath, mental status change, leg weakness, cough after eating. The patient was noted with left-sided weakness in the Emergency Room with hemoglobin of 10.3. Chest x-ray revealed diffuse interstitial infiltrate and right lower lobe pulmonary nodule. CT scan of the brain and MRI scan revealed encephalomalacia. The patient even had an MRI scan of the brain done, which also revealed chronic right parietooccipital infarct and additional chronic lacunar infarct. No acute abnormality was detected. The patient had lumbar puncture done recently. The patient comes in and out of her confusion. The patient has been incontinent of urine. PHYSICAL EXAMINATION: Physical exam today revealed a middle-aged female. The patient is somewhat lethargic, sitting in bedside chair. She follows few commands. She had mild left central facial paresis. The patient had generalized muscle weakness, absent knee and ankle jerks. She seemed to have equal perception of touch and pinprick sensation bilaterally. 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 with evidence of multiple white matter strokes, diabetic peripheral neuropathy, stable lung nodule; status post cadaveric renal transplant, on immunosuppressive medication prednisone and Prograf; recent mild hyperkalemia, chronic allograft nephropathy with stable renal function, chronic kidney disease stage 3, creatinine at baseline, history of disseminated cryptococcus, has been on a chronic Diflucan therapy, encephalopathy, diabetes mellitus, coronary artery disease, status post coronary artery bypass graft, anemia, history of gastroesophageal reflux disease, peripheral arterial disease, status post vascular bypass graft. RECOMMENDATIONS: Agree with the plan for physical therapy, occupational therapy and speech pathology to help with her deficits when medically stable to [facility] care unit. Dr. Moran, I appreciate asking me to participate in the care of this interesting patient. I will be glad to see her for followup with you on as needed basis. RADHA HUITRON MD DR: DEEDEE/jeanie JOB#: [id number] / [id number]
[2020-01-28] MEDS: INSULIN GLARGINE SYRINGE. SQ SCH (22:34)
[2020-01-29] VITALS (7 sets, daily range): BP systolic 114–173; BP diastolic 29–93
[2020-01-29] MEDS: AMINO AC 3%/ELECTROLYTE/GLYCER 1,000 ML IV SCH ×2 (00:37→15:50)
[2020-01-29 05:21] LABS: CALCIUM 10.4 mg/dL (8.5-10.1); CREATININE 1.3 mg/dL (0.6-1.0); GFR 49.6; POTASSIUM 5.1 mmol/L (3.5-5.1)
--- NOTE | 2020-01-29 09:10 | PDOC ---
SUBJECTIVE ROS stable OBJECTIVE Vital Signs Vital Signs Date Time Temp Pulse Resp B/P (MAP) Pulse Ox O2 Delivery O2 Flow Rate FiO2 01/29/20 07:00 97.6 77 18 150/51 (84) 99 Room Air 97.6 I & 0 Intake and Output 01/29/20 07:00 Output Total 1250 ml Balance -1250 ml Output Urine Total 1250 ml PHYSICAL EXAM Physical Exam GENERAL: NAD HEENT: Oral mucosa moist. NECK: Supple LUNGS: No accessory muscle use HEART: S1, S2. 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 Brain MRI neg acute findings DM - managed by Primary Coronary artery disease s/p CABG anemia- stable COMMENT/RELEVANT DATA Meds Current Medications Medications (Trade) Dose Ordered Sig/Te Start Time Stop Time Status Last Admin Dose Admin Acetaminophen (Tylenol Supp) 650 mg PRN Q4HRS PRN 01/24/20 08:30 Acetaminophen (Tylenol) 1,000 mg PRN Q8HRS PRN 01/24/20 10:15 Amino Acids/ Glycerin/ Electrolytes 1,000 ml @ 75 mls/hr [id number] 01/24/20 13:45 01/29/20 00:37 75 MLS/HR Aspirin (Aspirin Rectal Supp) 300 mg PRN DAILY PRN 01/24/20 08:30 Aspirin (Ecotrin) 81 mg DAILY 01/25/20 09:00 UNV Clonidine HCl (Catapres Tts-3) 1 patch 1X ONCE 01/24/20 05:30 01/24/20 05:31 DC Clonidine HCl (Catapres) 0.2 mg 1X ONCE 01/23/20 17:30 01/23/20 17:31 DC 01/23/20 17:38 0.2 MG Dextrose (Dextrose 50%-Water Syringe) 12.5 gm PRN Q15MIN PRN 01/24/20 21:45 Dextrose/Sodium Chloride 1,000 ml @ 100 mls/hr 1X ONCE 01/23/20 17:45 01/24/20 03:44 DC 01/23/20 19:24 100 MLS/HR Enalaprilat (Vasotec Inj) 1.25 mg PRN Q6HRS PRN 01/25/20 12:00 Enoxaparin Sodium (Lovenox 40mg Syringe) 40 mg Q24H 01/24/20 11:00 01/26/20 12:24 DC 01/26/20 10:12 40 MG Fluconazole (Diflucan) 200 mg DAILY 01/24/20 11:00 01/28/20 08:39 200 MG Hydralazine HCl (Apresoline) 25 mg BID 01/24/20 21:00 01/28/20 22:19 25 MG Insulin Glargine (Lantus Syringe) 18 unit QHS 01/24/20 21:00 01/28/20 22:34 18 UNIT Insulin Human Lispro (HumaLOG) 8 units DAILYWSUP 01/24/20 17:00 01/28/20 17:13 8 UNITS Labetalol HCl (Normodyne Iv Push) 20 mg PRN Q4HRS PRN 01/24/20 04:15 01/26/20 00:17 20 MG Levetiracetam (Keppra) 500 mg BID 01/27/20 09:00 01/28/20 22:18 500 MG Levetiracetam 500 mg/Dextrose 105 ml @ 420 mls/hr Q12HR 01/24/20 13:45 01/27/20 08:47 DC 01/26/20 21:14 420 MLS/HR Lisinopril (Prinivil) 20 mg DAILY 01/24/20 12:00 01/28/20 08:40 20 MG Lorazepam (Ativan Inj) 0.5 mg PRN Q4HRS PRN 01/24/20 16:45 01/25/20 06:34 0.5 MG Morphine Sulfate (Morphine Sulfate) 2 mg PRN Q2HR PRN 01/23/20 17:45 01/24/20 17:44 DC Non-Formulary Medication 0.5 ea BID 01/24/20 15:00 01/27/20 04:41 DC 01/24/20 21:12 0.5 EA Olanzapine (ZyPREXA) 10 mg QHS 01/24/20 21:00 01/27/20 09:52 DC 01/26/20 21:14 10 MG Ondansetron HCl (Zofran) 4 mg PRN Q8HRS PRN 01/23/20 17:45 01/24/20 17:44 DC Pharmacy Consult (Cyao Med Screen By Rx) 1 each 1X ONCE 01/24/20 09:00 01/24/20 09:01 DC 01/24/20 08:26 1 EACH Piperacillin Sod/ Tazobactam Sod (Zosyn Per Pharmacy) 1 each PRN DAILY PRN 01/24/20 04:30 01/24/20 09:32 DC Piperacillin Sod/ Tazobactam Sod 3.375 gm/Sodium Chloride 50 ml @ 100 mls/hr Q6H 01/24/20 05:00 01/24/20 09:30 DC 01/24/20 05:06 100 MLS/HR Prednisone (Prednisone) 5 mg DAILY 01/27/20 09:00 01/28/20 08:40 5 MG Quetiapine Fumarate (SEROquel) 25 mg BID 01/24/20 12:00 01/27/20 09:52 DC 01/26/20 21:14 25 MG Tacrolimus (Prograf Oral Susp) 0.5 mg STK-MED ONCE 01/24/20 21:00 01/27/20 14:30 DC Tacrolimus (Prograf) 0.5 mg BID 01/24/20 12:00 01/28/20 22:18 0.5 MG Trazodone HCl (Desyrel) 50 mg QHS 01/24/20 21:00 01/27/20 09:52 DC 01/26/20 21:14 50 MG Vitamin B Complex/ Vitamin C (Vicki-Stacey) 1 tab DAILY 01/25/20 09:00 01/28/20 08:40 1 TAB Lab Laboratory Tests Test 01/28/20 11:33 01/28/20 16:28 01/28/20 20:04 01/29/20 03:35 Glucose (Fingerstick) 213 mg/dL (70-99) 140 mg/dL (70-99) 144 mg/dL (70-99) Sodium Level 135 mmol/L (136-145) Potassium Level 5.1 mmol/L (3.5-5.1) Chloride Level 103 mmol/L (98-107) Carbon Dioxide Level 22 mmol/L (21-32) Anion Gap 10 (6-14) Blood Urea Nitrogen 51 mg/dL (7-20) Creatinine 1.3 mg/dL (0.6-1.0) Estimated GFR (Cockcroft-Gault) 49.6 Glucose Level 154 mg/dL (70-99) Calcium Level 10.4 mg/dL (8.5-10.1) Test 01/29/20 07:31 Glucose (Fingerstick) 166 mg/dL (70-99) Results All relevant outside records, renal labs, imaging studies, telemetry/EKG's were reviewed. Justicifation of Admission Dx: Justifications for Admission: Justification of Admission Dx: Yes Sepsis: Altered Mental Status Altered Mental Status: Altered Mental Status (immune compramised,s/p kidney transplant.) CASS HUITRON MD Jan 29, 2020 09:10
[2020-01-29] MEDS: TACROLIMUS 0.5 MG CAPSULE PO SCH ×2 (09:27→22:27)
[2020-01-29] MEDS: ASPIRIN ENTERIC COATED 325 MG TABLET.DR. PO SCH (09:27)
--- NOTE | 2020-01-29 09:27 | PDOC ---
PROGRESS NOTES Subjective Subjective No new complaints. Objective Objective Vital Signs Date Time Temp Pulse Resp B/P (MAP) Pulse Ox O2 Delivery O2 Flow Rate FiO2 01/29/20 07:00 97.6 77 18 150/51 (84) 99 Room Air 97.6 Intake and Output 01/29/20 07:00 Output Total 1250 ml Balance -1250 ml Output Urine Total 1250 ml Physical Exam Physical Exam She is eating breakfast being fed by nursing sitting in bed with head end of bed raised up and she continues with cognitive,communication,visual and perceptual,mobility and self care limitations. Assessment Assessment Problems Medical Problems: (1) Cough Status: Acute (2) Left-sided weakness Status: Acute Plan Plan of Care To SNF or LTAC unit for continued care when medically stable. Comment Review of Relevant I have reviewed the following items warner (where applicable) has been applied. Labs Laboratory Tests Test 01/27/20 11:18 01/27/20 14:25 01/27/20 16:26 01/27/20 20:41 Glucose (Fingerstick) 193 mg/dL (70-99) 158 mg/dL (70-99) 126 mg/dL (70-99) CSF Color Colorless CSF Clarity Clear CSF WBC 0 /cmm (Not Established) CSF RBC 3 /cmm (Not Established) CSF Glucose 130 mg/dL (37-70) CSF Total Protein 99.0 mg/dL (15.0-45.0) Test 01/28/20 03:45 01/28/20 07:18 01/28/20 11:33 01/28/20 16:28 White Blood Count 7.5 x10^3/uL (4.0-11.0) Red Blood Count 4.45 x10^6/uL (3.50-5.40) Hemoglobin 11.3 g/dL (12.0-15.5) Hematocrit 35.4 % (36.0-47.0) Mean Corpuscular Volume 80 fL (79-100) Mean Corpuscular Hemoglobin 25 pg (25-35) Mean Corpuscular Hemoglobin Concent 32 g/dL (31-37) Red Cell Distribution Width 16.3 % (11.5-14.5) Platelet Count 253 x10^3/uL (140-400) Neutrophils (%) (Auto) 71 % (31-73) Lymphocytes (%) (Auto) 16 % (24-48) Monocytes (%) (Auto) 10 % (0-9) Eosinophils (%) (Auto) 3 % (0-3) Basophils (%) (Auto) 0 % (0-3) Neutrophils # (Auto) 5.3 x10^3/uL (1.8-7.7) Lymphocytes # (Auto) 1.2 x10^3/uL (1.0-4.8) Monocytes # (Auto) 0.7 x10^3/uL (0.0-1.1) Eosinophils # (Auto) 0.2 x10^3/uL (0.0-0.7) Basophils # (Auto) 0.0 x10^3/uL (0.0-0.2) Sodium Level 136 mmol/L (136-145) Potassium Level 5.3 mmol/L (3.5-5.1) Chloride Level 104 mmol/L (98-107) Carbon Dioxide Level 22 mmol/L (21-32) Anion Gap 10 (6-14) Blood Urea Nitrogen 37 mg/dL (7-20) Creatinine 1.3 mg/dL (0.6-1.0) Estimated GFR (Cockcroft-Gault) 49.6 Glucose Level 243 mg/dL (70-99) Calcium Level 10.2 mg/dL (8.5-10.1) Glucose (Fingerstick) 253 mg/dL (70-99) 213 mg/dL (70-99) 140 mg/dL (70-99) Test 01/28/20 20:04 01/29/20 03:35 01/29/20 07:31 Glucose (Fingerstick) 144 mg/dL (70-99) 166 mg/dL (70-99) Sodium Level 135 mmol/L (136-145) Potassium Level 5.1 mmol/L (3.5-5.1) Chloride Level 103 mmol/L (98-107) Carbon Dioxide Level 22 mmol/L (21-32) Anion Gap 10 (6-14) Blood Urea Nitrogen 51 mg/dL (7-20) Creatinine 1.3 mg/dL (0.6-1.0) Estimated GFR (Cockcroft-Gault) 49.6 Glucose Level 154 mg/dL (70-99) Calcium Level 10.4 mg/dL (8.5-10.1) Laboratory Tests Test 01/28/20 11:33 01/28/20 16:28 01/28/20 20:04 01/29/20 03:35 Glucose (Fingerstick) 213 mg/dL (70-99) 140 mg/dL (70-99) 144 mg/dL (70-99) Sodium Level 135 mmol/L (136-145) Potassium Level 5.1 mmol/L (3.5-5.1) Chloride Level 103 mmol/L (98-107) Carbon Dioxide Level 22 mmol/L (21-32) Anion Gap 10 (6-14) Blood Urea Nitrogen 51 mg/dL (7-20) Creatinine 1.3 mg/dL (0.6-1.0) Estimated GFR (Cockcroft-Gault) 49.6 Glucose Level 154 mg/dL (70-99) Calcium Level 10.4 mg/dL (8.5-10.1) Test 01/29/20 07:31 Glucose (Fingerstick) 166 mg/dL (70-99) Medications Current Medications Clonidine HCl (Catapres) 0.2 mg 1X ONCE PO Last administered on 01/23/20at 17:38; Start 01/23/20 at 17:30; Stop 01/23/20 at 17:31; Status DC Ondansetron HCl (Zofran) 4 mg PRN Q8HRS PRN IV NAUSEA/VOMITING; Start 01/23/20 at 17:45; Stop 01/24/20 at 17:44; Status DC Morphine Sulfate (Morphine Sulfate) 2 mg PRN Q2HR PRN IV PAIN; Start 01/23/20 at 17:45; Stop 01/24/20 at 17:44; Status DC Dextrose/Sodium Chloride 1,000 ml @ 100 mls/hr 1X ONCE IV Last administered on 01/23/20at 19:24; Start 01/23/20 at 17:45; Stop 01/24/20 at 03:44; Status DC Pharmacy Consult (C.diff Med Screen By Rx) 1 each 1X ONCE MC Last administered on 01/24/20at 08:26; Start 01/24/20 at 09:00; Stop 01/24/20 at 09:01; Status DC Labetalol HCl (Normodyne Iv Push) 20 mg PRN Q4HRS PRN IVP HYPERTENSION, 2nd choice Last administered on 01/26/20at 00:17; Start 01/24/20 at 04:15 Clonidine HCl (Catapres Tts-3) 1 patch WEEKLY TD ; Start 01/24/20 at 09:00; Stop 01/24/20 at 05:21; Status DC Piperacillin Sod/ Tazobactam Sod (Zosyn Per Pharmacy) 1 each PRN DAILY PRN MC SEE COMMENTS; Start 01/24/20 at 04:30; Stop 01/24/20 at 09:32; Status DC Piperacillin Sod/ Tazobactam Sod 3.375 gm/Sodium Chloride 50 ml @ 100 mls/hr Q6H IV Last administered on 01/24/20at 05:06; Start 01/24/20 at 05:00; Stop 01/24/20 at 09:30; Status DC Clonidine HCl (Catapres Tts-3) 1 patch WEEKLY TD Last administered on 01/24/20at 15:53; Start 01/24/20 at 16:00 Clonidine HCl (Catapres Tts-3) 1 patch 1X ONCE TD ; Start 01/24/20 at 05:30; Stop 01/24/20 at 05:31; Status DC Levetiracetam (Keppra) 500 mg BID PO ; Start 01/24/20 at 09:00; Status Cancel Acetaminophen (Tylenol) 650 mg PRN Q6HRS PRN PO TEMP > 100.4F; Start 01/24/20 at 08:30; Stop 01/26/20 at 12:00; Status DC Acetaminophen (Tylenol Supp) 650 mg PRN Q4HRS PRN [place] TEMP > 100.4F; Start 01/24/20 at 08:30 Aspirin (Ecotrin) 325 mg DAILYWBKFT PO Last administered on 01/28/20at 08:40; Start 01/25/20 at 08:00 Aspirin (Aspirin Rectal Supp) 300 mg PRN DAILY PRN [place] IF UNABLE TO TAKE PO; Start 01/24/20 at 08:30 Lorazepam (Ativan Inj) 2 mg PRN Q4HRS PRN IVP ANXIETY / AGITATION Last administered on 01/24/20at 10:14; Start 01/24/20 at 10:00; Stop 01/24/20 at 16:35; Status DC Acetaminophen (Tylenol) 1,000 mg PRN Q8HRS PRN PO MILD PAIN OR FEVER; Start 01/24/20 at 10:15 Aspirin (Ecotrin) 81 mg DAILY PO ; Start 01/25/20 at 09:00; Status UNV Vitamin B Complex/ Vitamin C (Vicki-Stacey) 1 tab DAILY PO Last administered on 01/28/20at 08:40; Start 01/25/20 at 09:00 Hydralazine HCl (Apresoline) 25 mg BID PO Last administered on 01/28/20at 22:19; Start 01/24/20 at 21:00 Insulin Human Lispro (HumaLOG) 2 units DAILYWLUN SQ Last administered on 01/28/20at 11:40; Start 01/24/20 at 12:00 Insulin Human Lispro (HumaLOG) 4 units DAILYWBKFT SQ Last administered on 0at 08:49; Start 01/25/20 at 08:00 Insulin Human Lispro (HumaLOG) 8 units DAILYWSUP SQ Last administered on 01/28/20at 17:13; Start 01/24/20 at 17:00 Lisinopril (Prinivil) 20 mg DAILY PO Last administered on 01/28/20at 08:40; Start 01/24/20 at 12:00 Prednisone (Prednisone) 2 mg DAILY PO Last administered on 01/26/20at 10:15; Start 01/24/20 at 12:00; Stop 01/26/20 at 12:24; Status DC Quetiapine Fumarate (SEROquel) 25 mg BID PO Last administered on 01/26/20at 21:14; Start 01/24/20 at 12:00; Stop 01/27/20 at 09:52; Status DC Tacrolimus (Prograf) 0.5 mg BID PO Last administered on 01/28/20at 22:18; Start 01/24/20 at 12:00 Trazodone HCl (Desyrel) 50 mg QHS PO Last administered on 01/26/20at 21:14; Start 01/24/20 at 21:00; Stop 01/27/20 at 09:52; Status DC Fluconazole (Diflucan) 200 mg DAILY PO Last administered on 01/28/20at 08:39; Start 01/24/20 at 11:00 Insulin Glargine (Lantus Syringe) 18 unit QHS SQ ; Start 01/24/20 at 21:00; Stop 01/24/20 at 20:59; Status DC Olanzapine (ZyPREXA) 10 mg QHS PO Last administered on 01/26/20at 21:14; Start 01/24/20 at 21:00; Stop 01/27/20 at 09:52; Status DC Enoxaparin Sodium (Lovenox 40mg Syringe) 40 mg Q24H SQ Last administered on 01/26/20at 10:12; Start 01/24/20 at 11:00; Stop 01/26/20 at 12:24; Status DC Amino Acids/ Glycerin/ Electrolytes 1,000 ml @ 75 mls/hr [id number] IV Last administered on 01/29/20at 00:37; Start 01/24/20 at 13:45 Levetiracetam 500 mg/Dextrose 105 ml @ 420 mls/hr Q12HR IV Last administered on 01/26/20at 21:14; Start 01/24/20 at 13:45; Stop 01/27/20 at 08:47; Status DC Non-Formulary Medication 0.5 ea BID NG Last administered on 01/24/20at 21:12; Start 01/24/20 at 15:00; Stop 01/27/20 at 04:41; Status DC Lorazepam (Ativan Inj) 0.5 mg PRN Q4HRS PRN IVP ANXIETY / AGITATION Last administered on 01/25/20at 06:34; Start 01/24/20 at 16:45 Insulin Glargine (Lantus Syringe) 18 unit QHS SQ Last administered on 01/28/20at 22:34; Start 01/24/20 at 21:00 Dextrose (Dextrose 50%-Water Syringe) 12.5 gm PRN Q15MIN PRN IV SEE COMMENTS; Start 01/24/20 at 21:45 Enalaprilat (Vasotec Inj) 1.25 mg PRN Q6HRS PRN IVP HYPERTENSION, 1st choice; Start 01/25/20 at 12:00 Prednisone (Prednisone) 5 mg DAILY PO Last administered on 01/28/20at 08:40; Start 01/27/20 at 09:00 Levetiracetam (Keppra) 500 mg BID PO Last administered on 01/28/20at 22:18; Start 01/27/20 at 09:00 Tacrolimus (Prograf Oral Susp) 0.5 mg STK-MED ONCE .ROUTE ; Start 01/24/20 at 21:00; Stop 01/27/20 at 14:30; Status DC Tacrolimus (Prograf Oral Susp) 0.5 mg STK-MED ONCE .ROUTE ; Start 01/24/20 at 21:00; Stop 01/27/20 at 14:30; Status DC Active Scripts Active Diflucan (Fluconazole) 100 Mg Tablet 200 Mg PO DAILY Reported Zyprexa (Olanzapine) 10 Mg Tablet 1 Tab PO QHS Trazodone Hcl 50 Mg Tablet 1 Tab PO QHS Seroquel (Quetiapine Fumarate) 25 Mg Tablet 25 Mg PO BID Humalog (Insulin Lispro) 100 Unit/1 Ml Vial 2 Unit SQ DAILYBFRLUN Lisinopril 20 Mg Tablet 1 Tab PO DAILY Acetaminophen 500 Mg Tablet 2 Tab PO PRN Q8HRS PRN 15 Days Prednisone 1 Mg Tablet 2 Mg PO DAILY Humalog (Insulin Lispro) 100 Unit/1 Ml Vial 8 Unit SQ DAILYBFRSUP Humalog (Insulin Lispro) 100 Unit/1 Ml Vial 4 Unit SQ DAILYWBKFT Hydralazine Hcl 25 Mg Tablet 1 Tab PO BID Aspir-Low (Aspirin) 81 Mg Tablet. 1 Tab PO DAILY Prograf (Tacrolimus) 1 Mg Capsule 0.5 Mg PO BID Levemir (Insulin Detemir) 100 Unit/1 Ml Vial 18 Unit SQ QHS Hold for FSBS below 90 and call Nephro-Stacey Tablet (Folic Acid/Vitamin B Comp W-C) 0.8 Mg Tablet 1 Tab PO DAILY Levetiracetam 500 Mg Tablet 500 Mg PO BID Vitals/I & O Vital Sign - Last 24 Hours 01/28/20 01/28/20 01/28/20 01/28/20 10:59 15:02 15:44 19:39 Temp 98.0 97.5 98.0 98.0 97.5 98.0 Pulse 77 72 70 70 Resp B/P (MAP) 136/91 (106) 96/27 (50) 131/36 (67) 106/50 (68) Pulse Ox 98 99 100 O2 Delivery Room Air Room Air Room Air 01/28/20 01/28/20 01/28/20 01/29/20 22:15 22:19 23:25 03:17 Temp 97.4 97.4 97.4 97.4 Pulse 70 69 77 Resp 20 20 B/P (MAP) 106/50 136/36 (69) 154/ Pulse Ox 98 99 O2 Delivery Room Air Room Air Room Air 01/29/20 07:00 Temp 97.6 97.6 Pulse 77 Resp 18 B/P (MAP) 150/51 (84) Pulse Ox 99 O2 Delivery Room Air Intake and Output 01/28/20 01/28/20 01/29/20 15:00 23:00 07:00 Output Total 1250 ml Balance -1250 ml Nutrition Consultation Dietary Evaluation: Recommendations by RD: Dietary education by RD, Increase Calorie Intake, PPN/TPN Comments: Continue w/PPN for short-term nutrition support needs to supplement poor PO intake 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
[2020-01-29] MEDS: hydrALAZINE 25 MG TABLET PO SCH ×2 (09:28→22:28)
[2020-01-29] MEDS: predniSONE 5 MG TABLET PO SCH (09:28)
[2020-01-29] MEDS: LISINOPRIL 20 MG TABLET PO SCH (09:28)
[2020-01-29] MEDS: FOLIC/VIT B COMP W-C (RENAL) TABLET. PO SCH (09:28)
[2020-01-29] MEDS: FLUCONAZOLE 100 MG TABLET. PO SCH (09:28)
[2020-01-29] MEDS: levETIRAcetam 500 MG TABLET PO SCH ×2 (09:28→22:27)
[2020-01-29] MEDS: INSULIN LISPRO 300 UNITS/3 ML VIAL. SQ SCH ×3 (09:36→17:37)
--- NOTE | 2020-01-29 09:38 | PDOC ---
Infectious Disease Note Subjective Subjective Patient is more awake able to communicate and even smiled says feeling okay ROS ROS No nausea vomiting diarrhea chest pain shortness of breath Vital Sign Vital Signs Vital Signs Date Time Temp Pulse Resp B/P (MAP) Pulse Ox O2 Delivery O2 Flow Rate FiO2 01/29/20 09:28 77 150/51 01/29/20 07:00 97.6 18 99 Room Air 97.6 Physical Exam PHYSICAL EXAM GENERAL: Lying down, eyes closed, in NAD HEENT: Pupils small and equal NECK: Supple LUNGS: Clear, no accessory muscle use HEART: S1, S2. regular ABDOMEN: Soft, no guarding EXTREMITIES: No edema, no cyanosis, no clubbing. Previous amputation site, left great and second toe scar intact. No draining wounds. SKIN: warm to touch. No generalized rash. PROTECTION MGR: Minimally arousable to tactile stimuli PIV looks ok Labs Lab Laboratory Tests Test 01/28/20 11:33 01/28/20 16:28 01/28/20 20:04 01/29/20 03:35 Glucose (Fingerstick) 213 mg/dL (70-99) 140 mg/dL (70-99) 144 mg/dL (70-99) Sodium Level 135 mmol/L (136-145) Potassium Level 5.1 mmol/L (3.5-5.1) Chloride Level 103 mmol/L (98-107) Carbon Dioxide Level 22 mmol/L (21-32) Anion Gap 10 (6-14) Blood Urea Nitrogen 51 mg/dL (7-20) Creatinine 1.3 mg/dL (0.6-1.0) Estimated GFR (Cockcroft-Gault) 49.6 Glucose Level 154 mg/dL (70-99) Calcium Level 10.4 mg/dL (8.5-10.1) Test 01/29/20 07:31 Glucose (Fingerstick) 166 mg/dL (70-99) Micro Cultures negative Cryptococcal antigen in the blood 1 is to 40 CSF unremarkable Cryptococcal antigen in the CSF is pending Objective Assessment Encephalopathy. Brain MRI neg acute findings History of epilepsy. Diabetes with peripheral neuropathy. h/o disseminated cryptococcus, on fluconazole. Gastroesophageal reflux disease. History of kidney transplant. Peripheral arterial disease. Chronic kidney disease, status post renal transplant. Coronary artery disease. COVID-19 neg, 01/23 Plan Plan of Care chronic fluconazole treatment All sedating medications have been stopped Maintain aspiration precaution Supportive care Discussed with SHEN Son MD Jan 29, 2020 09:38
--- NOTE | 2020-01-29 10:00 | PDOC ---
PROGRESS NOTES Subjective Subjective lethargic at times,eating 25 % Objective Objective Vital Signs Date Time Temp Pulse Resp B/P (MAP) Pulse Ox O2 Delivery O2 Flow Rate FiO2 01/29/20 09:28 77 150/51 01/29/20 07:00 97.6 18 99 Room Air 97.6 Intake and Output 01/29/20 07:00 Output Total 1250 ml Balance -1250 ml Output Urine Total 1250 ml Physical Exam Abdomen: Normal bowel sounds, No tenderness Heart: Regular rate Extremities: No clubbing, No cyanosis General: No acute distress HEENT: Atraumatic, PERRLA Lungs: Clear to auscultation MUSCULOSKELETAL: No deformity, No swelling Neuro: Other (CONFUSED, lethargic) Skin: No breakdown Diagnosis Problem List Problems Medical Problems: (1) Cough Status: Acute (2) Left-sided weakness Status: Acute Assessment Assessment Problems Medical Problems: (1) Cough Status: Acute (2) Left-sided weakness Status: Acute Metabolic Encephalopathy. Brain MRI neg acute findings , old CVA History of epilepsy. Diabetes with peripheral neuropathy. h/o disseminated cryptococcus, on fluconazole. Gastroesophageal reflux disease. History of kidney transplant. Peripheral arterial disease. Chronic kidney disease, status post renal transplant. Coronary artery disease.s/p cabg COVID-19 neg, 01/23 Plan Plan of Care: spoke with pts daughter,feeding tube?she is going to make decision soon today LTAC or SNU. labs reviewed ok PT/OT /Rehab consult spinal tap today 01/27/20. wbc 0, protein 90 elevated holding Lovenox for spinal tap. spoke with pts daughter Stacia. labs reviewed, cryptococal antigen titre1;40 high in serum on procalamine d/c zyprexa+seroquel +Trazadone, Pt admitted to hospitalist service,transferred to my care 01/26/20. Plan Plan of Care Problems Medical Problems: (1) Cough Status: Acute (2) Left-sided weakness Status: Acute Comment Review of Relevant I have reviewed the following items warner (where applicable) has been applied. Labs Laboratory Tests Test 01/28/20 11:33 01/28/20 16:28 01/28/20 20:04 01/29/20 03:35 Glucose (Fingerstick) 213 mg/dL (70-99) 140 mg/dL (70-99) 144 mg/dL (70-99) Sodium Level 135 mmol/L (136-145) Potassium Level 5.1 mmol/L (3.5-5.1) Chloride Level 103 mmol/L (98-107) Carbon Dioxide Level 22 mmol/L (21-32) Anion Gap 10 (6-14) Blood Urea Nitrogen 51 mg/dL (7-20) Creatinine 1.3 mg/dL (0.6-1.0) Estimated GFR (Cockcroft-Gault) 49.6 Glucose Level 154 mg/dL (70-99) Calcium Level 10.4 mg/dL (8.5-10.1) Test 01/29/20 07:31 Glucose (Fingerstick) 166 mg/dL (70-99) Vitals/I & O Vital Sign - Last 24 Hours 01/28/20 01/28/20 01/28/20 01/28/20 10:59 15:02 15:44 19:39 Temp 98.0 97.5 98.0 98.0 97.5 98.0 Pulse 77 72 70 70 Resp 15 18 20 B/P (MAP) 136/91 (106) 96/27 (50) 131/36 (67) 106/50 (68) Pulse Ox 98 99 100 O2 Delivery Room Air Room Air Room Air 01/28/20 01/28/20 01/28/20 01/29/20 22:15 22:19 23:25 03:17 Temp 97.4 97.4 97.4 97.4 Pulse 70 69 77 Resp 20 20 B/P (MAP) 106/50 136/36 (69) 154/ Pulse Ox 98 99 O2 Delivery Room Air Room Air Room Air 01/29/20 01/29/20 01/29/20 07:00 09:28 09:28 Temp 97.6 97.6 Pulse 77 77 77 Resp 18 B/P (MAP) 150/51 (84) 150/51 150/51 Pulse Ox 99 O2 Delivery Room Air Intake and Output 01/28/20 01/28/20 01/29/20 15:00 23:00 07:00 Output Total 1250 ml Balance -1250 ml Justicifation of Admission Dx: Justifications for Admission: Justification of Admission Dx: Yes Sepsis: Altered Mental Status Altered Mental Status: Altered Mental Status (immune compramised,s/p kidney transplant.) Nutrition Consultation Dietary Evaluation: Recommendations by RD: Dietary education by RD, Increase Calorie Intake, PPN/TPN Comments: Continue w/PPN for short-term nutrition support needs to supplement poor PO intake 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
--- NOTE | 2020-01-29 10:02 | PDOC ---
PROGRESS NOTES Assessment Problems Medical Problems: (1) Cough Status: Acute (2) Left-sided weakness Status: Acute Metabolic encephalopathy No acute stroke. Dementia and multiple psychiatric diagnoses. 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 Diabetic peripheral neuropathy Ruled out COVID Note LP done, negative, elevated protein in isolation is nonspecific, may be seen, for instance, in diabetes Medical issues: status-post renal transplant, chronic allograft nephropathy, CKD stage 3, istory of disseminated Cryptococcus, coronary artery disease, anemia, lung nodules Plan No additional stroke or TIA workup required Levetiracetam No further neurological tests or treatment Return to custodial when medically stable Subjective No complaints Objective Vital Signs Date Time Temp Pulse Resp B/P (MAP) Pulse Ox O2 Delivery O2 Flow Rate FiO2 01/29/20 09:28 77 150/51 01/29/20 07:00 97.6 18 99 Room Air 97.6 Intake and Output 01/29/20 07:00 Output Total 1250 ml Balance -1250 ml Output Urine Total 1250 ml PHYSICAL EXAM Alert. Oriented only to person. PERRL. EOMI. CN: no focal findings. Muscle tone: normal. Muscle strength: 4/5 DTR: 1+ Plantar reflex: flexor Gait: not examined in bed. Sensory exam: stocking loss. Cerebellar: Not cooperative Review of Relevant I have reviewed the following items warner (where applicable) has been applied. Labs Laboratory Tests Test 01/27/20 11:18 01/27/20 14:25 01/27/20 16:26 01/27/20 20:41 Glucose (Fingerstick) 193 mg/dL (70-99) 158 mg/dL (70-99) 126 mg/dL (70-99) CSF Color Colorless CSF Clarity Clear CSF WBC 0 /cmm (Not Established) CSF RBC 3 /cmm (Not Established) CSF Glucose 130 mg/dL (37-70) CSF Total Protein 99.0 mg/dL (15.0-45.0) Test 01/28/20 03:45 01/28/20 07:18 01/28/20 11:33 01/28/20 16:28 White Blood Count 7.5 x10^3/uL (4.0-11.0) Red Blood Count 4.45 x10^6/uL (3.50-5.40) Hemoglobin 11.3 g/dL (12.0-15.5) Hematocrit 35.4 % (36.0-47.0) Mean Corpuscular Volume 80 fL (79-100) Mean Corpuscular Hemoglobin 25 pg (25-35) Mean Corpuscular Hemoglobin Concent 32 g/dL (31-37) Red Cell Distribution Width 16.3 % (11.5-14.5) Platelet Count 253 x10^3/uL (140-400) Neutrophils (%) (Auto) 71 % (31-73) Lymphocytes (%) (Auto) 16 % (24-48) Monocytes (%) (Auto) 10 % (0-9) Eosinophils (%) (Auto) 3 % (0-3) Basophils (%) (Auto) 0 % (0-3) Neutrophils # (Auto) 5.3 x10^3/uL (1.8-7.7) Lymphocytes # (Auto) 1.2 x10^3/uL (1.0-4.8) Monocytes # (Auto) 0.7 x10^3/uL (0.0-1.1) Eosinophils # (Auto) 0.2 x10^3/uL (0.0-0.7) Basophils # (Auto) 0.0 x10^3/uL (0.0-0.2) Sodium Level 136 mmol/L (136-145) Potassium Level 5.3 mmol/L (3.5-5.1) Chloride Level 104 mmol/L (98-107) Carbon Dioxide Level 22 mmol/L (21-32) Anion Gap 10 (6-14) Blood Urea Nitrogen 37 mg/dL (7-20) Creatinine 1.3 mg/dL (0.6-1.0) Estimated GFR (Cockcroft-Gault) 49.6 Glucose Level 243 mg/dL (70-99) Calcium Level 10.2 mg/dL (8.5-10.1) Glucose (Fingerstick) 253 mg/dL (70-99) 213 mg/dL (70-99) 140 mg/dL (70-99) Test 01/28/20 20:04 01/29/20 03:35 01/29/20 07:31 Glucose (Fingerstick) 144 mg/dL (70-99) 166 mg/dL (70-99) Sodium Level 135 mmol/L (136-145) Potassium Level 5.1 mmol/L (3.5-5.1) Chloride Level 103 mmol/L (98-107) Carbon Dioxide Level 22 mmol/L (21-32) Anion Gap 10 (6-14) Blood Urea Nitrogen 51 mg/dL (7-20) Creatinine 1.3 mg/dL (0.6-1.0) Estimated GFR (Cockcroft-Gault) 49.6 Glucose Level 154 mg/dL (70-99) Calcium Level 10.4 mg/dL (8.5-10.1) Laboratory Tests Test 01/28/20 11:33 01/28/20 16:28 01/28/20 20:04 01/29/20 03:35 Glucose (Fingerstick) 213 mg/dL (70-99) 140 mg/dL (70-99) 144 mg/dL (70-99) Sodium Level 135 mmol/L (136-145) Potassium Level 5.1 mmol/L (3.5-5.1) Chloride Level 103 mmol/L (98-107) Carbon Dioxide Level 22 mmol/L (21-32) Anion Gap 10 (6-14) Blood Urea Nitrogen 51 mg/dL (7-20) Creatinine 1.3 mg/dL (0.6-1.0) Estimated GFR (Cockcroft-Gault) 49.6 Glucose Level 154 mg/dL (70-99) Calcium Level 10.4 mg/dL (8.5-10.1) Test 01/29/20 07:31 Glucose (Fingerstick) 166 mg/dL (70-99) Medications Current Medications Clonidine HCl (Catapres) 0.2 mg 1X ONCE PO Last administered on 01/23/20at 17:38; Start 01/23/20 at 17:30; Stop 01/23/20 at 17:31; Status DC Ondansetron HCl (Zofran) 4 mg PRN Q8HRS PRN IV NAUSEA/VOMITING; Start 01/23/20 at 17:45; Stop 01/24/20 at 17:44; Status DC Morphine Sulfate (Morphine Sulfate) 2 mg PRN Q2HR PRN IV PAIN; Start 01/23/20 at 17:45; Stop 01/24/20 at 17:44; Status DC Dextrose/Sodium Chloride 1,000 ml @ 100 mls/hr 1X ONCE IV Last administered on 01/23/20at 19:24; Start 01/23/20 at 17:45; Stop 01/24/20 at 03:44; Status DC Pharmacy Consult (C.diff Med Screen By Rx) 1 each 1X ONCE MC Last administered on 01/24/20at 08:26; Start 01/24/20 at 09:00; Stop 01/24/20 at 09:01; Status DC Labetalol HCl (Normodyne Iv Push) 20 mg PRN Q4HRS PRN IVP HYPERTENSION, 2nd choice Last administered on 01/26/20at 00:17; Start 01/24/20 at 04:15 Clonidine HCl (Catapres Tts-3) 1 patch WEEKLY TD ; Start 01/24/20 at 09:00; Stop 01/24/20 at 05:21; Status DC Piperacillin Sod/ Tazobactam Sod (Zosyn Per Pharmacy) 1 each PRN DAILY PRN MC SEE COMMENTS; Start 01/24/20 at 04:30; Stop 01/24/20 at 09:32; Status DC Piperacillin Sod/ Tazobactam Sod 3.375 gm/Sodium Chloride 50 ml @ 100 mls/hr Q6H IV Last administered on 01/24/20at 05:06; Start 01/24/20 at 05:00; Stop 01/24/20 at 09:30; Status DC Clonidine HCl (Catapres Tts-3) 1 patch WEEKLY TD Last administered on 01/24/20at 15:53; Start 01/24/20 at 16:00 Clonidine HCl (Catapres Tts-3) 1 patch 1X ONCE TD ; Start 01/24/20 at 05:30; Stop 01/24/20 at 05:31; Status DC Levetiracetam (Keppra) 500 mg BID PO ; Start 01/24/20 at 09:00; Status Cancel Acetaminophen (Tylenol) 650 mg PRN Q6HRS PRN PO TEMP > 100.4F; Start 01/24/20 at 08:30; Stop 01/26/20 at 12:00; Status DC Acetaminophen (Tylenol Supp) 650 mg PRN Q4HRS PRN NC TEMP > 100.4F; Start 01/24/20 at 08:30 Aspirin (Ecotrin) 325 mg DAILYWBKFT PO Last administered on 01/29/20at 09:27; Start 01/25/20 at 08:00 Aspirin (Aspirin Rectal Supp) 300 mg PRN DAILY PRN NC IF UNABLE TO TAKE PO; Start 01/24/20 at 08:30 Lorazepam (Ativan Inj) 2 mg PRN Q4HRS PRN IVP ANXIETY / AGITATION Last administered on 01/24/20at 10:14; Start 01/24/20 at 10:00; Stop 01/24/20 at 16:35; Status DC Acetaminophen (Tylenol) 1,000 mg PRN Q8HRS PRN PO MILD PAIN OR FEVER; Start 01/24/20 at 10:15 Aspirin (Ecotrin) 81 mg DAILY PO ; Start 01/25/20 at 09:00; Status UNV Vitamin B Complex/ Vitamin C (Vicki-Stacey) 1 tab DAILY PO Last administered on 01/29/20at 09:28; Start 01/25/20 at 09:00 Hydralazine HCl (Apresoline) 25 mg BID PO Last administered on 01/29/20at 09:28; Start 01/24/20 at 21:00 Insulin Human Lispro (HumaLOG) 2 units DAILYWLUN SQ Last administered on 01/28/20 at 11:40; Start 01/24/20 at 12:00 Insulin Human Lispro (HumaLOG) 4 units DAILYWBKFT SQ Last administered on 01/29/20at 09:36; Start 01/25/20 at 08:00 Insulin Human Lispro (HumaLOG) 8 units DAILYWSUP SQ Last administered on 01/28/20at 17:13; Start 01/24/20 at 17:00 Lisinopril (Prinivil) 20 mg DAILY PO Last administered on 01/29/20at 09:28; Start 01/24/20 at 12:00 Prednisone (Prednisone) 2 mg DAILY PO Last administered on 01/26/20at 10:15; Start 01/24/20 at 12:00; Stop 01/26/20 at 12:24; Status DC Quetiapine Fumarate (SEROquel) 25 mg BID PO Last administered on 01/26/20at 21:14; Start 01/24/20 at 12:00; Stop 01/27/20 at 09:52; Status DC Tacrolimus (Prograf) 0.5 mg BID PO Last administered on 01/29/20 09:27; Start 01/24/20 at 12:00 Trazodone HCl (Desyrel) 50 mg QHS PO Last administered on 01/26/20at 21:14; Start 01/24/20 at 21:00; Stop 01/27/20 at 09:52; Status DC Fluconazole (Diflucan) 200 mg DAILY PO Last administered on 01/29/20 09:28; Start 01/24/20 at 11:00 Insulin Glargine (Lantus Syringe) 18 unit QHS SQ ; Start 01/24/20 at 21:00; Stop 01/24/20 at 20:59; Status DC Olanzapine (ZyPREXA) 10 mg QHS PO Last administered on 01/26/20 21:14; Start 01/24/20 at 21:00; Stop 01/27/20 at 09:52; Status DC Enoxaparin Sodium (Lovenox 40mg Syringe) 40 mg Q24H SQ Last administered on 01/26/20at 10:12; Start 01/24/20 at 11:00; Stop 01/26/20 at 12:24; Status DC Amino Acids/ Glycerin/ Electrolytes 1,000 ml @ 75 mls/hr [id number] IV Last administered on 01/29/20at 00:37; Start 01/24/20 at 13:45 Levetiracetam 500 mg/Dextrose 105 ml @ 420 mls/hr Q12HR IV Last administered on 01/26/20 21:14; Start 01/24/20 at 13:45; Stop 01/27/20 at 08:47; Status DC Non-Formulary Medication 0.5 ea BID NG Last administered on 01/24/20at 21:12; Start 01/24/20 at 15:00; Stop 01/27/20 at 04:41; Status DC Lorazepam (Ativan Inj) 0.5 mg PRN Q4HRS PRN IVP ANXIETY / AGITATION Last administered on 01/25/20at 06:34; Start 01/24/20 at 16:45 Insulin Glargine (Lantus Syringe) 18 unit QHS SQ Last administered on 01/28/20at 22:34; Start 01/24/20 at 21:00 Dextrose (Dextrose 50%-Water Syringe) 12.5 gm PRN Q15MIN PRN IV SEE COMMENTS; Start 01/24/20 at 21:45 Enalaprilat (Vasotec Inj) 1.25 mg PRN Q6HRS PRN IVP HYPERTENSION, 1st choice; Start 01/25/20 at 12:00 Prednisone (Prednisone) 5 mg DAILY PO Last administered on 01/29/20at 09:28; Start 01/27/20 at 09:00 Levetiracetam (Keppra) 500 mg BID PO Last administered on 01/29/20at 09:28; Start 01/27/20 at 09:00 Tacrolimus (Prograf Oral Susp) 0.5 mg STK-MED ONCE .ROUTE ; Start 01/24/20 at 21:00; Stop 01/27/20 at 14:30; Status DC Tacrolimus (Prograf Oral Susp) 0.5 mg STK-MED ONCE .ROUTE ; Start 01/24/20 at 21:00; Stop 01/27/20 at 14:30; Status DC Active Scripts Active Diflucan (Fluconazole) 100 Mg Tablet 200 Mg PO DAILY Reported Zyprexa (Olanzapine) 10 Mg Tablet 1 Tab PO QHS Trazodone Hcl 50 Mg Tablet 1 Tab PO QHS Seroquel (Quetiapine Fumarate) 25 Mg Tablet 25 Mg PO BID Humalog (Insulin Lispro) 100 Unit/1 Ml Vial 2 Unit SQ DAILYBFRLUN Lisinopril 20 Mg Tablet 1 Tab PO DAILY Acetaminophen 500 Mg Tablet 2 Tab PO PRN Q8HRS PRN 15 Days Prednisone 1 Mg Tablet 2 Mg PO DAILY Humalog (Insulin Lispro) 100 Unit/1 Ml Vial 8 Unit SQ DAILYBFRSUP Humalog (Insulin Lispro) 100 Unit/1 Ml Vial 4 Unit SQ DAILYWBKFT Hydralazine Hcl 25 Mg Tablet 1 Tab PO BID Aspir-Low (Aspirin) 81 Mg Tablet. 1 Tab PO DAILY Prograf (Tacrolimus) 1 Mg Capsule 0.5 Mg PO BID Levemir (Insulin Detemir) 100 Unit/1 Ml Vial 18 Unit SQ QHS Hold for FSBS below 90 and call Nephro-Stacey Tablet (Folic Acid/Vitamin B Comp W-C) 0.8 Mg Tablet 1 Tab PO DAILY Levetiracetam 500 Mg Tablet 500 Mg PO BID Vitals/I & O Vital Sign - Last 24 Hours 01/28/20 01/28/20 01/28/20 01/28/20 10:59 15:02 15:44 19:39 Temp 98.0 97.5 98.0 98.0 97.5 98.0 Pulse 77 72 70 70 Resp 15 18 20 B/P (MAP) 136/91 (106) 96/27 (50) 131/36 (67) 106/50 (68) Pulse Ox 98 99 100 O2 Delivery Room Air Room Air Room Air 01/28/20 01/28/20 01/28/20 01/29/20 22:15 22:19 23:25 03:17 Temp 97.4 97.4 97.4 97.4 Pulse 70 69 77 Resp 20 20 B/P (MAP) 106/50 136/36 (69) 154/ Pulse Ox 98 99 O2 Delivery Room Air Room Air Room Air 01/29/20 01/29/20 01/29/20 07:00 09:28 09:28 Temp 97.6 97.6 Pulse 77 77 77 Resp 18 B/P (MAP) 150/51 (84) 150/51 150/51 Pulse Ox 99 O2 Delivery Room Air Intake and Output 01/28/20 01/28/20 01/29/20 15:00 23:00 07:00 Output Total 1250 ml Balance -1250 ml Justicifation of Admission Dx: Justifications for Admission: Justification of Admission Dx: Yes Sepsis: Altered Mental Status Altered Mental Status: Altered Mental Status (immune compramised,s/p kidney transplant.) ISELA WASHINGTON MD Jan 29, 2020 10:02
--- NOTE | 2020-01-29 13:06 | PDOC2 ---
GI CONSULT Reason For Consult: possible PEG tube HPI: HPI: 64 y/o female admitted last week w/ a variety of symptoms - stroke and COVID ruled out but persistently encephalopathic. Had swallow eval w/ recommendation for dysphagia I diet w/ honey-thick liquids. D/w Dr. Moran earlier today - not eating much and he discussed possible feeding tube placement w/ her daughter which is why we are asked to see. D/w nurse - requires two people to get to commode now. D/w Dr. Galicia - mental status better today? 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 Chart indicates had a follow-up colonoscopy w/ Dr. Todd in 2018 - cannot view results. Past encounter indicates h/o reportedly normal EGD prior to renal transplant. Cholelithiasis on US in 2018. Chronic anemia; past iron profile c/w ACD. On ASA 325mg QD. PMH: PMH: CAD, HTN, COPD, pneumonia, HLD, CVA, DM, neuropathy, PVD, C Diff, UTI, dementia, epilepsy, disseminated cryptococcus, thyroid nodules appendectomy, hysterectomy, AV shunt, CABG, renal transplant, RLE atherectomy/angioplasty, ORIF right radius, right heel surgery, left toe amputations FH: Family History: DM, Other ( Alzheimer's) Social History: Smoke: No ALCOHOL: none Drugs: None ROS: Difficult to obtain. Vitals: Vitals: Vital Signs Date Time Temp Pulse Resp B/P (MAP) Pulse Ox O2 Delivery O2 Flow Rate FiO2 01/29/20 09:28 77 150/51 01/29/20 07:00 97.6 18 99 Room Air 97.6 Labs: Labs: Laboratory Tests Test 01/28/20 16:28 01/28/20 20:04 01/29/20 03:35 01/29/20 07:31 Glucose (Fingerstick) 140 mg/dL (70-99) 144 mg/dL (70-99) 166 mg/dL (70-99) Sodium Level 135 mmol/L (136-145) Potassium Level 5.1 mmol/L (3.5-5.1) Chloride Level 103 mmol/L (98-107) Carbon Dioxide Level 22 mmol/L (21-32) Anion Gap 10 (6-14) Blood Urea Nitrogen 51 mg/dL (7-20) Creatinine 1.3 mg/dL (0.6-1.0) Estimated GFR (Cockcroft-Gault) 49.6 Glucose Level 154 mg/dL (70-99) Calcium Level 10.4 mg/dL (8.5-10.1) Test 01/29/20 11:14 Glucose (Fingerstick) 191 mg/dL (70-99) Allergies: Coded Allergies: adhesive tape (Verified Allergy, Intermediate, Hives, 11/02/18) blistered skin this admit No Known Medication Allergies (Verified Allergy, Unknown, 01/09/18) Medications: Please see EMR. Imaging: Imaging: Head CT 01/22 Impression: 1. No acute intracranial hemorrhage is identified. 2. There is again encephalomalacia with cortical involvement centered in the right parietal lobe extending to the right occipital lobe, also old lacunar infarcts as stated. Other ill-defined low-density of the supratentorial parenchyma is nonspecific although may be due to chronic microvascular ischemic disease in a patient this age and given old infarct. CXR 01/22 IMPRESSION: 1. Diffuse interstitial infiltrate. Correlate for congestion. 2. Right upper lobe pulmonary nodule. There are additional smaller nodules on the prior CT which are not well seen radiographically. KUB 01/23 IMPRESSION: Dobbhoff tube tip projects over the body of the stomach. Moderate colonic stool content. No bowel obstruction. Evaluation for free intraperitoneal gas is limited on this supine exam. LICENSED BONDSMAN 01/24 LICENSED BONDSMAN Bedside Swallow Eval: Pt demo's mild oropharyngeal dysphagia w/ prolonged oral swallow and possible delayed initiation of pharyngeal swallow. Appears at risk for aspiration w/ thin liquids. No s/s aspiration w/ puree, honey thick liquids, or regular solids. Unable to adequately masticate solids currently. Recommendations: Initiate Dysphagia I diet w/ honey thick liquids. 1:1 feeding asst. for all PO. Will continue LICENSED BONDSMAN f/u to address dysphagia per POC. Brain MRI 01/24 Impression: 1. No acute intracranial abnormality. 2. Chronic right parieto-occipital infarct. 3. Additional chronic lacunar infarcts. LP 01/26 PE: GEN: legs hanging off bed, lunch tray untouched HEENT: edentulous LUNGS: clear anteriorly HEART: RRR ABD: NABS, S/ND/NT EXTREMITY: No edema SKIN: No rashes, no jaundice NEURO/PSYCH: alert, does not verbalize to me, occasionally winces A/P: A/P: Encephalopathy ACD CRC screen, h/o adenomatous polyps - last in 2018 Cholelithiasis H/o CVA, s/p renal transplant -- Will review w/ Dr. Morrow - issue is not eating as much as usual w/ encephalopathy - LICENSED BONDSMAN has seen, on dysphagia diet and able to take meds - family would consent to PEG. Would be happy to discuss w/ family. EMMANUEL MOYA Jan 29, 2020 13:06
[2020-01-29] MEDS: INSULIN GLARGINE SYRINGE. SQ SCH (22:32)
[2020-01-30] MEDS: AMINO AC 3%/ELECTROLYTE/GLYCER 1,000 ML IV SCH (03:05)
[2020-01-30 03:53] VITALS: BP 183/68
[2020-01-30 07:40] VITALS: BP 115/41
[2020-01-30] MEDS: INSULIN LISPRO 300 UNITS/3 ML VIAL. SQ SCH ×3 (08:00→17:54)
[2020-01-30] MEDS: FOLIC/VIT B COMP W-C (RENAL) TABLET. PO SCH (08:18)
[2020-01-30] MEDS: predniSONE 5 MG TABLET PO SCH (08:18)
[2020-01-30] MEDS: FLUCONAZOLE 100 MG TABLET. PO SCH (08:18)
[2020-01-30] MEDS: levETIRAcetam 500 MG TABLET PO SCH ×2 (08:19→21:14)
[2020-01-30] MEDS: hydrALAZINE 25 MG TABLET PO SCH ×2 (08:22→21:15)
[2020-01-30] MEDS: TACROLIMUS 0.5 MG CAPSULE PO SCH ×2 (08:23→21:14)
[2020-01-30] MEDS: ASPIRIN ENTERIC COATED 325 MG TABLET.DR. PO SCH (08:23)
[2020-01-30] MEDS: LISINOPRIL 20 MG TABLET PO SCH (08:23)
--- NOTE | 2020-01-30 09:50 | PDOC ---
PROGRESS NOTES Subjective Subjective No new complaints. Objective Objective Vital Signs Date Time Temp Pulse Resp B/P (MAP) Pulse Ox O2 Delivery O2 Flow Rate FiO2 01/30/20 08:23 75 134/107 01/30/20 07:40 97.8 16 98 Room Air 97.8 Intake and Output 01/30/20 07:00 Intake Total 80 ml Output Total 1900 ml Balance -1820 ml Intake Oral 80 ml Output Urine Total 1900 ml Physical Exam Physical Exam She is awake and sitting in bedside chair and seems to be comfortable but continues with cognitive,communication,visual perceptual,mobility and self care limitations. Assessment Assessment Problems Medical Problems: (1) Cough Status: Acute (2) Left-sided weakness Status: Acute Plan Plan of Care To SNF when medically stable. Comment Review of Relevant I have reviewed the following items warner (where applicable) has been applied. Labs Laboratory Tests Test 01/28/20 11:33 01/28/20 16:28 01/28/20 20:04 01/29/20 03:35 Glucose (Fingerstick) 213 mg/dL (70-99) 140 mg/dL (70-99) 144 mg/dL (70-99) Sodium Level 135 mmol/L (136-145) Potassium Level 5.1 mmol/L (3.5-5.1) Chloride Level 103 mmol/L (98-107) Carbon Dioxide Level 22 mmol/L (21-32) Anion Gap 10 (6-14) Blood Urea Nitrogen 51 mg/dL (7-20) Creatinine 1.3 mg/dL (0.6-1.0) Estimated GFR (Cockcroft-Gault) 49.6 Glucose Level 154 mg/dL (70-99) Calcium Level 10.4 mg/dL (8.5-10.1) Test 01/29/20 07:31 01/29/20 11:14 01/29/20 16:36 01/29/20 19:28 Glucose (Fingerstick) 166 mg/dL (70-99) 191 mg/dL (70-99) 296 mg/dL (70-99) 265 mg/dL (70-99) Test 01/30/20 07:27 Glucose (Fingerstick) 203 mg/dL (70-99) Laboratory Tests Test 01/29/20 11:14 01/29/20 16:36 01/29/20 19:28 01/30/20 07:27 Glucose (Fingerstick) 191 mg/dL (70-99) 296 mg/dL (70-99) 265 mg/dL (70-99) 203 mg/dL (70-99) Medications Current Medications Clonidine HCl (Catapres) 0.2 mg 1X ONCE PO Last administered on 01/23/20at 17:38; Start 01/23/20 at 17:30; Stop 01/23/20 at 17:31; Status DC Ondansetron HCl (Zofran) 4 mg PRN Q8HRS PRN IV NAUSEA/VOMITING; Start 01/23/20 at 17:45; Stop 01/24/20 at 17:44; Status DC Morphine Sulfate (Morphine Sulfate) 2 mg PRN Q2HR PRN IV PAIN; Start 01/23/20 at 17:45; Stop 01/24/20 at 17:44; Status DC Dextrose/Sodium Chloride 1,000 ml @ 100 mls/hr 1X ONCE IV Last administered on 01/23/20at 19:24; Start 01/23/20 at 17:45; Stop 01/24/20 at 03:44; Status DC Pharmacy Consult (C.diff Med Screen By Rx) 1 each 1X ONCE MC Last administered on 01/24/20at 08:26; Start 01/24/20 at 09:00; Stop 01/24/20 at 09:01; Status DC Labetalol HCl (Normodyne Iv Push) 20 mg PRN Q4HRS PRN IVP HYPERTENSION, 2nd choice Last administered on 01/26/20at 00:17; Start 01/24/20 at 04:15 Clonidine HCl (Catapres Tts-3) 1 patch WEEKLY TD ; Start 01/24/20 at 09:00; Stop 01/24/20 at 05:21; Status DC Piperacillin Sod/ Tazobactam Sod (Zosyn Per Pharmacy) 1 each PRN DAILY PRN MC SEE COMMENTS; Start 01/24/20 at 04:30; Stop 01/24/20 at 09:32; Status DC Piperacillin Sod/ Tazobactam Sod 3.375 gm/Sodium Chloride 50 ml @ 100 mls/hr Q6H IV Last administered on 01/24/20at 05:06; Start 01/24/20 at 05:00; Stop 01/24/20 at 09:30; Status DC Clonidine HCl (Catapres Tts-3) 1 patch WEEKLY TD Last administered on 01/24/20at 15:53; Start 01/24/20 at 16:00 Clonidine HCl (Catapres Tts-3) 1 patch 1X ONCE TD ; Start 01/24/20 at 05:30; Stop 01/24/20 at 05:31; Status DC Levetiracetam (Keppra) 500 mg BID PO ; Start 01/24/20 at 09:00; Status Cancel Acetaminophen (Tylenol) 650 mg PRN Q6HRS PRN PO TEMP > 100.4F; Start 01/24/20 at 08:30; Stop 01/26/20 at 12:00; Status DC Acetaminophen (Tylenol Supp) 650 mg PRN Q4HRS PRN FL TEMP > 100.4F; Start 01/24/20 at 08:30 Aspirin (Ecotrin) 325 mg DAILYWBKFT PO Last administered on 01/30/20at 08:23; Start 01/25/20 at 08:00 Aspirin (Aspirin Rectal Supp) 300 mg PRN DAILY PRN FL IF UNABLE TO TAKE PO; Start 01/24/20 at 08:30 Lorazepam (Ativan Inj) 2 mg PRN Q4HRS PRN IVP ANXIETY / AGITATION Last administered on 01/24/20at 10:14; Start 01/24/20 at 10:00; Stop 01/24/20 at 16:35; Status DC Acetaminophen (Tylenol) 1,000 mg PRN Q8HRS PRN PO MILD PAIN OR FEVER; Start 01/24/20 at 10:15 Aspirin (Ecotrin) 81 mg DAILY PO ; Start 01/25/20 at 09:00; Status UNV Vitamin B Complex/ Vitamin C (Vicki-Stacey) 1 tab DAILY PO Last administered on 01/30/20at 08:18; Start 01/25/20 at 09:00 Hydralazine HCl (Apresoline) 25 mg BID PO Last administered on 01/30/20at 08:22; Start 01/24/20 at 21:00 Insulin Human Lispro (HumaLOG) 2 units DAILYWLUN SQ Last administered on 01/29/20at 12:40; Start 01/24/20 at 12:00 Insulin Human Lispro (HumaLOG) 4 units DAILYWBKFT SQ Last administered on 01/30/20 08:00; Start 01/25/20 at 08:00 Insulin Human Lispro (HumaLOG) 8 units DAILYWSUP SQ Last administered on 01/29/20at 17:37; Start 01/24/20 at 17:00 Lisinopril (Prinivil) 20 mg DAILY PO Last administered on 01/30/20 08:23; Start 01/24/20 at 12:00 Prednisone (Prednisone) 2 mg DAILY PO Last administered on 01/26/20at 10:15; Start 01/24/20 at 12:00; Stop 01/26/20 at 12:24; Status DC Quetiapine Fumarate (SEROquel) 25 mg BID PO Last administered on 01/26/20 21:14; Start 01/24/20 at 12:00; Stop 01/27/20 at 09:52; Status DC Tacrolimus (Prograf) 0.5 mg BID PO Last administered on 01/30/20 08:23; Start 01/24/20 at 12:00 Trazodone HCl (Desyrel) 50 mg QHS PO Last administered on 01/26/20at 21:14; Start 01/24/20 at 21:00; Stop 01/27/20 at 09:52; Status DC Fluconazole (Diflucan) 200 mg DAILY PO Last administered on 01/30/20 08:18; Start 01/24/20 at 11:00 Insulin Glargine (Lantus Syringe) 18 unit QHS SQ ; Start 01/24/20 at 21:00; Stop 01/24/20 at 20:59; Status DC Olanzapine (ZyPREXA) 10 mg QHS PO Last administered on 01/26/20 21:14; Start 01/24/20 at 21:00; Stop 01/27/20 at 09:52; Status DC Enoxaparin Sodium (Lovenox 40mg Syringe) 40 mg Q24H SQ Last administered on 01/26/20at 10:12; Start 01/24/20 at 11:00; Stop 01/26/20 at 12:24; Status DC Amino Acids/ Glycerin/ Electrolytes 1,000 ml @ 75 mls/hr [id number] IV Last administered on 01/29/20at 15:50; Start 01/24/20 at 13:45 Levetiracetam 500 mg/Dextrose 105 ml @ 420 mls/hr Q12HR IV Last administered on 01/26/20at 21:14; Start 01/24/20 at 13:45; Stop 01/27/20 at 08:47; Status DC Non-Formulary Medication 0.5 ea BID NG Last administered on 01/24/20at 21:12; Start 01/24/20 at 15:00; Stop 01/27/20 at 04:41; Status DC Lorazepam (Ativan Inj) 0.5 mg PRN Q4HRS PRN IVP ANXIETY / AGITATION Last administered on 01/25/20at 06:34; Start 01/24/20 at 16:45 Insulin Glargine (Lantus Syringe) 18 unit QHS SQ Last administered on 01/29/20at 22:32; Start 01/24/20 at 21:00 Dextrose (Dextrose 50%-Water Syringe) 12.5 gm PRN Q15MIN PRN IV SEE COMMENTS; Start 01/24/20 at 21:45 Enalaprilat (Vasotec Inj) 1.25 mg PRN Q6HRS PRN IVP HYPERTENSION, 1st choice; Start 01/25/20 at 12:00 Prednisone (Prednisone) 5 mg DAILY PO Last administered on 01/30/20at 08:18; Start 01/27/20 at 09:00 Levetiracetam (Keppra) 500 mg BID PO Last administered on 01/30/20at 08:19; Star t 01/27/20 at 09:00 Tacrolimus (Prograf Oral Susp) 0.5 mg STK-MED ONCE .ROUTE ; Start 01/24/20 at 21:00; Stop 01/27/20 at 14:30; Status DC Tacrolimus (Prograf Oral Susp) 0.5 mg STK-MED ONCE .ROUTE ; Start 01/24/20 at 21:00; Stop 01/27/20 at 14:30; Status DC Active Scripts Active Diflucan (Fluconazole) 100 Mg Tablet 200 Mg PO DAILY Reported Zyprexa (Olanzapine) 10 Mg Tablet 1 Tab PO QHS Trazodone Hcl 50 Mg Tablet 1 Tab PO QHS Seroquel (Quetiapine Fumarate) 25 Mg Tablet 25 Mg PO BID Humalog (Insulin Lispro) 100 Unit/1 Ml Vial 2 Unit SQ DAILYBFRLUN Lisinopril 20 Mg Tablet 1 Tab PO DAILY Acetaminophen 500 Mg Tablet 2 Tab PO PRN Q8HRS PRN 15 Days Prednisone 1 Mg Tablet 2 Mg PO DAILY Humalog (Insulin Lispro) 100 Unit/1 Ml Vial 8 Unit SQ DAILYBFRSUP Humalog (Insulin Lispro) 100 Unit/1 Ml Vial 4 Unit SQ DAILYWBKFT Hydralazine Hcl 25 Mg Tablet 1 Tab PO BID Aspir-Low (Aspirin) 81 Mg Tablet. 1 Tab PO DAILY Prograf (Tacrolimus) 1 Mg Capsule 0.5 Mg PO BID Levemir (Insulin Detemir) 100 Unit/1 Ml Vial 18 Unit SQ QHS Hold for FSBS below 90 and call Nephro-Stacey Tablet (Folic Acid/Vitamin B Comp W-C) 0.8 Mg Tablet 1 Tab PO DAILY Levetiracetam 500 Mg Tablet 500 Mg PO BID Vitals/I & O Vital Sign - Last 24 Hours 01/29/20 01/29/20 01/29/20 01/29/20 11:00 15:00 16:46 19:55 Temp 98.3 98.1 97.7 98.3 98.1 97.7 Pulse 81 70 65 74 Resp 18 18 16 B/P (MAP) 114/93 (100) 124/29 (60) 151/56 (87) 130/45 (73) Pulse Ox 100 100 98 O2 Delivery Room Air Room Air Room Air 01/29/20 01/29/20 01/29/20 01/30/20 22:28 22:30 23:20 03:53 Temp 97.6 97.5 97.6 97.5 Pulse 70 70 74 Resp 16 16 B/P (MAP) 173/56 173/56 (95) 183/68 (106) Pulse Ox 96 98 O2 Delivery Room Air Room Air Room Air 01/30/20 01/30/20 01/30/20 07:40 08:22 08:23 Temp 97.8 97.8 Pulse 75 75 75 Resp 16 B/P (MAP) 115/41 (65) 134/107 134/107 Pulse Ox 98 O2 Delivery Room Air Intake and Output 01/29/20 01/29/20 01/30/20 15:00 23:00 07:00 Intake Total 80 ml 0 ml 0 ml Output Total 550 ml 550 ml 800 ml Balance -470 ml -550 ml -800 ml Nutrition Consultation Dietary Evaluation: Recommendations by RD: Dietary education by RD, Increase Calorie Intake, PPN/TPN Comments: Continue w/PPN for short-term nutrition support needs to supplement poor PO intake Continue w/diet per BUFFING WHEEL OPERATOR, current diet dysphagia I w/honey thick liquids; recommend Ensure pudding w/lunch and dinner Expected Outcomes/Goals: Diet advancement - met, new goal established New goal 01/26: PO intake to meet >75% est needs Malnutrition Findings: Body Fat Depletion (Non Severe: Mild Depletion Weight Status: Appropriate RADHA HUITRON MD Jan 30, 2020 09:50
--- NOTE | 2020-01-30 10:03 | PDOC ---
PROGRESS NOTES Subjective Subjective eating 50 % today Objective Objective Vital Signs Date Time Temp Pulse Resp B/P (MAP) Pulse Ox O2 Delivery O2 Flow Rate FiO2 01/30/20 08:23 75 134/107 01/30/20 07:40 97.8 16 98 Room Air 97.8 Intake and Output 01/30/20 07:00 Intake Total 80 ml Output Total 1900 ml Balance -1820 ml Intake Oral 80 ml Output Urine Total 1900 ml Physical Exam Abdomen: Normal bowel sounds, No tenderness Heart: Regular rate Extremities: No clubbing, No cyanosis General: No acute distress HEENT: Atraumatic, PERRLA Lungs: Clear to auscultation MUSCULOSKELETAL: No deformity, No swelling Neuro: Other (CONFUSED, lethargic) Skin: No breakdown Diagnosis Problem List Problems Medical Problems: (1) Cough Status: Acute (2) Left-sided weakness Status: Acute Assessment Assessment Problems Medical Problems: (1) Cough Status: Acute (2) Left-sided weakness Status: Acute Metabolic Encephalopathy. Brain MRI neg acute findings , old CVA History of epilepsy. Diabetes with peripheral neuropathy. h/o disseminated cryptococcus, on fluconazole. Gastroesophageal reflux disease. History of kidney transplant. Peripheral arterial disease. Chronic kidney disease, status post renal transplant. Coronary artery disease.s/p cabg COVID-19 neg, 01/23 Plan Plan of Care: eating 50% today. select screen if no improvement. if improved by tomorrow back to [facility] posat acute. spoke with pts daughter,feeding tube?she is going to make decision soon today LTAC or SNU. labs reviewed ok PT/OT /Rehab consult spinal tap today 01/27/20. wbc 0, protein 90 elevated holding Lovenox for spinal tap. spoke with pts daughter Stacia. labs reviewed, cryptococal antigen titre1;40 high in serum on procalamine d/c zyprexa+seroquel +Trazadone, Pt admitted to hospitalist service,transferred to my care 01/26/20. Plan Plan of Care Problems Medical Problems: (1) Cough Status: Acute (2) Left-sided weakness Status: Acute Comment Review of Relevant I have reviewed the following items warner (where applicable) has been applied. Labs Laboratory Tests Test 01/29/20 11:14 01/29/20 16:36 01/29/20 19:28 01/30/20 07:27 Glucose (Fingerstick) 191 mg/dL (70-99) 296 mg/dL (70-99) 265 mg/dL (70-99) 203 mg/dL (70-99) Vitals/I & O Vital Sign - Last 24 Hours 01/29/20 01/29/20 01/29/20 01/29/20 11:00 15:00 16:46 19:55 Temp 98.3 98.1 97.7 98.3 98.1 97.7 Pulse 81 70 65 74 Resp 18 18 16 B/P (MAP) 114/93 (100) 124/29 (60) 151/56 (87) 130/45 (73) Pulse Ox 100 100 98 O2 Delivery Room Air Room Air Room Air 01/29/20 01/29/20 01/29/20 01/30/20 22:28 22:30 23:20 03:53 Temp 97.6 97.5 97.6 97.5 Pulse 70 70 74 Resp 16 16 B/P (MAP) 173/56 173/56 (95) 183/68 (106) Pulse Ox 96 98 O2 Delivery Room Air Room Air Room Air 01/30/20 01/30/20 01/30/20 07:40 08:22 08:23 Temp 97.8 97.8 Pulse 75 75 75 Resp 16 B/P (MAP) 115/41 (65) 134/107 134/107 Pulse Ox 98 O2 Delivery Room Air Intake and Output 01/29/20 01/29/20 01/30/20 15:00 23:00 07:00 Intake Total 80 ml 0 ml 0 ml Output Total 550 ml 550 ml 800 ml Balance -470 ml -550 ml -800 ml Justicifation of Admission Dx: Justifications for Admission: Justification of Admission Dx: Yes Sepsis: Altered Mental Status Altered Mental Status: Altered Mental Status (immune compramised,s/p kidney transplant.) Nutrition Consultation Dietary Evaluation: Recommendations by RD: Dietary education by RD, Increase Calorie Intake, PPN/TPN Comments: Continue w/PPN for short-term nutrition support needs to supplement poor PO intake Continue w/diet per METAL PAINTER, current diet dysphagia I w/honey thick liquids; recommend Ensure pudding w/lunch and dinner Expected Outcomes/Goals: Diet advancement - met, new goal established New goal 01/26: PO intake to meet >75% est needs Malnutrition Findings: Body Fat Depletion (Non Severe: Mild Depletion Weight Status: Appropriate AUGUSTO BRUNER MD Jan 30, 2020 10:02
--- NOTE | 2020-01-30 10:21 | PDOC ---
Infectious Disease Note Subjective Subjective Patient is more awake able and communicative ROS ROS No nausea vomiting diarrhea chest pain shortness of breath Vital Sign Vital Signs Vital Signs Date Time Temp Pulse Resp B/P (MAP) Pulse Ox O2 Delivery O2 Flow Rate FiO2 01/30/20 08:23 75 134/107 01/30/20 07:40 97.8 16 98 Room Air 97.8 Physical Exam PHYSICAL EXAM GENERAL: Lying down, eyes closed, in NAD HEENT: Pupils small and equal NECK: Supple LUNGS: Clear, no accessory muscle use HEART: S1, S2. regular ABDOMEN: Soft, no guarding EXTREMITIES: No edema, no cyanosis, no clubbing. Previous amputation site, left great and second toe scar intact. No draining wounds. SKIN: warm to touch. No generalized rash. HELP DESK COORDINATOR: Minimally arousable to tactile stimuli PIV looks ok Labs Lab Laboratory Tests Test 01/29/20 11:14 01/29/20 16:36 01/29/20 19:28 01/30/20 07:27 Glucose (Fingerstick) 191 mg/dL (70-99) 296 mg/dL (70-99) 265 mg/dL (70-99) 203 mg/dL (70-99) Micro Cultures negative Cryptococcal antigen in the blood 1 is to 40 CSF unremarkable Cryptococcal antigen in the CSF is pending Objective Assessment Encephalopathy. Brain MRI neg , csf neg, likely from meds History of epilepsy. Diabetes with peripheral neuropathy. h/o disseminated cryptococcus, on fluconazole. Gastroesophageal reflux disease. History of kidney transplant. Peripheral arterial disease. Chronic kidney disease, status post renal transplant. Coronary artery disease. COVID-19 neg, 01/23 Plan Plan of Care chronic fluconazole treatment All sedating medications have been stopped Maintain aspiration precaution Supportive care Discussed with SHEN Son MD Jan 30, 2020 10:21
--- NOTE | 2020-01-30 10:34 | PDOC ---
SUBJECTIVE ROS stable OBJECTIVE Vital Signs Vital Signs Date Time Temp Pulse Resp B/P (MAP) Pulse Ox O2 Delivery O2 Flow Rate FiO2 01/30/20 08:23 75 134/107 01/30/20 08:00 Room Air 01/30/20 07:40 97.8 16 98 97.8 I & 0 Intake and Output 01/30/20 07:00 Intake Total 80 ml Output Total 1900 ml Balance -1820 ml Intake Oral 80 ml Output Urine Total 1900 ml PHYSICAL EXAM Physical Exam GENERAL: NAD HEENT: Oral mucosa moist. NECK: Supple LUNGS: No accessory muscle use HEART: S1, S2. 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 Brain MRI neg acute findings DM - managed by Primary Coronary artery disease s/p CABG anemia- stable COMMENT/RELEVANT DATA Meds Current Medications Medications (Trade) Dose Ordered Sig/Te Start Time Stop Time Status Last Admin Dose Admin Acetaminophen (Tylenol Supp) 650 mg PRN Q4HRS PRN 01/24/20 08:30 Acetaminophen (Tylenol) 1,000 mg PRN Q8HRS PRN 01/24/20 10:15 Amino Acids/ Glycerin/ Electrolytes 1,000 ml @ 75 mls/hr [id number] 01/24/20 13:45 01/30/20 10:00 DC 01/29/20 15:50 75 MLS/HR Aspirin (Aspirin Rectal Supp) 300 mg PRN DAILY PRN 01/24/20 08:30 Aspirin (Ecotrin) 81 mg DAILY 01/25/20 09:00 UNV Clonidine HCl (Catapres Tts-3) 1 patch 1X ONCE 01/24/20 05:30 01/24/20 05:31 DC Clonidine HCl (Catapres) 0.2 mg 1X ONCE 01/23/20 17:30 01/23/20 17:31 DC 01/23/20 17:38 0.2 MG Dextrose (Dextrose 50%-Water Syringe) 12.5 gm PRN Q15MIN PRN 01/24/20 21:45 Dextrose/Sodium Chloride 1,000 ml @ 100 mls/hr 1X ONCE 01/23/20 17:45 01/24/20 03:44 DC 01/23/20 19:24 100 MLS/HR Enalaprilat (Vasotec Inj) 1.25 mg PRN Q6HRS PRN 01/25/20 12:00 Enoxaparin Sodium (Lovenox 40mg Syringe) 40 mg Q24H 01/24/20 11:00 01/26/20 12:24 DC 01/26/20 10:12 40 MG Fluconazole (Diflucan) 200 mg DAILY 01/24/20 11:00 01/30/20 08:18 200 MG Hydralazine HCl (Apresoline) 25 mg BID 01/24/20 21:00 01/30/20 08:22 25 MG Insulin Glargine (Lantus Syringe) 18 unit QHS 01/24/20 21:00 01/29/20 22:32 18 UNIT Insulin Human Lispro (HumaLOG) 8 units DAILYWSUP 01/24/20 17:00 01/29/20 17:37 8 UNITS Labetalol HCl (Normodyne Iv Push) 20 mg PRN Q4HRS PRN 01/24/20 04:15 01/26/20 00:17 20 MG Levetiracetam (Keppra) 500 mg BID 01/27/20 09:00 01/30/20 08:19 500 MG Levetiracetam 500 mg/Dextrose 105 ml @ 420 mls/hr Q12HR 01/24/20 13:45 01/27/20 08:47 DC 01/26/20 21:14 420 MLS/HR Lisinopril (Prinivil) 20 mg DAILY 01/24/20 12:00 01/30/20 08:23 20 MG Lorazepam (Ativan Inj) 0.5 mg PRN Q4HRS PRN 01/24/20 16:45 01/25/20 06:34 0.5 MG Morphine Sulfate (Morphine Sulfate) 2 mg PRN Q2HR PRN 01/23/20 17:45 01/24/20 17:44 DC Non-Formulary Medication 0.5 ea BID 01/24/20 15:00 01/27/20 04:41 DC 01/24/20 21:12 0.5 EA Olanzapine (ZyPREXA) 10 mg QHS 01/24/20 21:00 01/27/20 09:52 DC 01/26/20 21:14 10 MG Ondansetron HCl (Zofran) 4 mg PRN Q8HRS PRN 01/23/20 17:45 01/24/20 17:44 DC Pharmacy Consult (C.diff Med Screen By Rx) 1 each 1X ONCE 01/24/20 09:00 01/24/20 09:01 DC 01/24/20 08:26 1 EACH Piperacillin Sod/ Tazobactam Sod (Zosyn Per Pharmacy) 1 each PRN DAILY PRN 01/24/20 04:30 01/24/20 09:32 DC Piperacillin Sod/ Tazobactam Sod 3.375 gm/Sodium Chloride 50 ml @ 100 mls/hr Q6H 01/24/20 05:00 01/24/20 09:30 DC 01/24/20 05:06 100 MLS/HR Prednisone (Prednisone) 5 mg DAILY 01/27/20 09:00 01/30/20 08:18 5 MG Quetiapine Fumarate (SEROquel) 25 mg BID 01/24/20 12:00 01/27/20 09:52 DC 01/26/20 21:14 25 MG Tacrolimus (Prograf Oral Susp) 0.5 mg STK-MED ONCE 01/24/20 21:00 01/27/20 14:30 DC Tacrolimus (Prograf) 0.5 mg BID 01/24/20 12:00 01/30/20 08:23 0.5 MG Trazodone HCl (Desyrel) 50 mg QHS 01/24/20 21:00 01/27/20 09:52 DC 01/26/20 21:14 50 MG Vitamin B Complex/ Vitamin C (Vicki-Stacey) 1 tab DAILY 01/25/20 09:00 01/30/20 08:18 1 TAB Lab Laboratory Tests Test 01/29/20 11:14 01/29/20 16:36 01/29/20 19:28 01/30/20 07:27 Glucose (Fingerstick) 191 mg/dL (70-99) 296 mg/dL (70-99) 265 mg/dL (70-99) 203 mg/dL (70-99) Results All relevant outside records, renal labs, imaging studies, telemetry/EKG's were reviewed. Justicifation of Admission Dx: Justifications for Admission: Justification of Admission Dx: Yes Sepsis: Altered Mental Status Altered Mental Status: Altered Mental Status (immune compramised,s/p kidney transplant.) CASS HUITRON MD Jan 30, 2020 10:34
--- NOTE | 2020-01-30 11:04 | PDOC ---
Subjective: Subjective: Says yayo. Objective: Objective: D/w staff - ate applesauce and cream of wheat w/ help, held pancakes in mouth. Spoke w/ Stacia (daughter/DPOA) on the phone yesterday - explained PEG procedure, potential risks. She hasn't seen her mom in awhile because of the pandemic but says she thinks was told by [facility] that she was eating less and falling a lot. They never had a conversation about a feeding tube, but says she would want to be "resuscitated one time but not again." Also says she might wake up mad that she has a tube but also says that her mom would want "everything done to help her." She thought it would be a good idea to observe for any improvement for a day or two before proceeding with PEG placement. Vital Signs: Vital Signs Date Time Temp Pulse Resp B/P (MAP) Pulse Ox O2 Delivery O2 Flow Rate FiO2 01/30/20 08:23 75 134/107 01/30/20 08:00 Room Air 01/30/20 07:40 97.8 16 98 97.8 Labs: Laboratory Tests Test 01/29/20 11:14 01/29/20 16:36 01/29/20 19:28 01/30/20 07:27 Glucose (Fingerstick) 191 mg/dL 296 mg/dL 265 mg/dL 203 mg/dL PE: GEN: NAD, in recliner LUNGS: CTAB HEART: RRR ABD: S/ND/NT NEURO/PSYCH: awake, smiles, says yayo but does not answer questions A/P: Encephalopathy, dysphagia/decreased PO intake -- Will review w/ Dr. Morrow. Justicifation of Admission Dx: Justifications for Admission: Justification of Admission Dx: Yes Sepsis: Altered Mental Status Altered Mental Status: Altered Mental Status (immune compramised,s/p kidney transplant.) EMMANUEL MOYA Jan 30, 2020 11:04
[2020-01-30 11:36] VITALS: BP 138/63
[2020-01-30 15:37] VITALS: BP 132/66
[2020-01-30 19:44] VITALS: BP 145/63
[2020-01-30] MEDS: INSULIN GLARGINE SYRINGE. SQ SCH (21:15)
[2020-01-30 23:08] LABS: HERPES SIMPLEX TYPE 1 Negative (Negative); HERPES SIMPLEX TYPE 2 Negative (Negative)
[2020-01-30 23:36] VITALS: BP 169/58
[2020-01-31 02:45] VITALS: BP 140/68
[2020-01-31 05:41] LABS: CALCIUM 10.7 mg/dL (8.5-10.1); CREATININE 1.4 mg/dL (0.6-1.0); GFR 45.5; POTASSIUM 5.3 mmol/L (3.5-5.1)
[2020-01-31 07:00] VITALS: BP 188/79
[2020-01-31] MEDS ORDERED: IV RINGERS,LACTATED 1000ML 1,000 ML IV SCH (07:00)
[2020-01-31] MEDS ORDERED: IV RINGERS,LACTATED 1000ML 1,000 ML IV ONE (08:15)
[2020-01-31] MEDS: cloNIDine TTS-3 1 PATCH PATCH.TDWK TD SCH (08:22)
[2020-01-31] MEDS: levETIRAcetam 500 MG TABLET PO SCH ×2 (08:23→20:24)
[2020-01-31] MEDS: ASPIRIN ENTERIC COATED 325 MG TABLET.DR. PO SCH (08:23)
[2020-01-31] MEDS: TACROLIMUS 0.5 MG CAPSULE PO SCH ×2 (08:24→20:24)
[2020-01-31] MEDS: FLUCONAZOLE 100 MG TABLET. PO SCH (08:24)
[2020-01-31] MEDS: FOLIC/VIT B COMP W-C (RENAL) TABLET. PO SCH (08:24)
[2020-01-31] MEDS: hydrALAZINE 25 MG TABLET PO SCH ×2 (08:24→20:25)
[2020-01-31] MEDS: LISINOPRIL 20 MG TABLET PO SCH (08:25)
[2020-01-31] MEDS: predniSONE 5 MG TABLET PO SCH (08:25)
--- NOTE | 2020-01-31 08:34 | PDOC ---
Infectious Disease Note Subjective Subjective Patient is more awake able and communicative Vital Sign Vital Signs Vital Signs Date Time Temp Pulse Resp B/P (MAP) Pulse Ox O2 Delivery O2 Flow Rate FiO2 01/31/20 08:25 85 202/69 01/31/20 02:45 97.7 16 99 Room Air 97.7 Physical Exam PHYSICAL EXAM GENERAL: Lying down, eyes closed, in NAD HEENT: Pupils small and equal NECK: Supple LUNGS: Clear, no accessory muscle use HEART: S1, S2. regular ABDOMEN: Soft, no guarding EXTREMITIES: No edema, no cyanosis, no clubbing. Previous amputation site, left great and second toe scar intact. No draining wounds. SKIN: warm to touch. No generalized rash. 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: Minimally arousable to tactile stimuli PIV looks ok Labs Lab Laboratory Tests Test 01/30/20 11:21 01/30/20 16:47 01/30/20 19:14 01/31/20 04:45 Glucose (Fingerstick) 190 mg/dL (70-99) 261 mg/dL (70-99) 204 mg/dL (70-99) Sodium Level 137 mmol/L (136-145) Potassium Level 5.3 mmol/L (3.5-5.1) Chloride Level 105 mmol/L (98-107) Carbon Dioxide Level 19 mmol/L (21-32) Anion Gap 13 (6-14) Blood Urea Nitrogen 54 mg/dL (7-20) Creatinine 1.4 mg/dL (0.6-1.0) Estimated GFR (Cockcroft-Gault) 45.5 Glucose Level 169 mg/dL (70-99) Calcium Level 10.7 mg/dL (8.5-10.1) Test 01/31/20 07:42 Glucose (Fingerstick) 164 mg/dL (70-99) Micro Cultures negative Cryptococcal antigen in the blood 1 is to 40 CSF unremarkable Cryptococcal antigen in the CSF is pending Objective Assessment Encephalopathy. Brain MRI neg , csf neg, likely from meds History of epilepsy. Diabetes with peripheral neuropathy. h/o disseminated cryptococcus, on fluconazole. Gastroesophageal reflux disease. History of kidney transplant. Peripheral arterial disease. Chronic kidney disease, status post renal transplant. Coronary artery disease. COVID-19 neg, 01/23 Plan Plan of Care chronic fluconazole treatment All sedating medications have been stopped Maintain aspiration precaution Supportive care Discussed with SHEN Son MD Jan 31, 2020 08:34
--- NOTE | 2020-01-31 09:22 | PDOC ---
PROGRESS NOTES Subjective Subjective No new complaints. Objective Objective Vital Signs Date Time Temp Pulse Resp B/P (MAP) Pulse Ox O2 Delivery O2 Flow Rate FiO2 01/31/20 08:25 85 202/69 01/31/20 02:45 97.7 16 99 Room Air 97.7 Intake and Output 01/31/20 07:00 Intake Total 290 ml Output Total 300 ml Balance -10 ml Intake Oral 290 ml Output Urine Total 300 ml # Voids 2 Physical Exam Physical Exam She is awake but continues with significant cognitive deficits and not eating enough food. She continues with requiring maximal assistance for mobility and self care. Assessment Assessment Problems Medical Problems: (1) Cough Status: Acute (2) Left-sided weakness Status: Acute Plan Plan of Care Agree with plans for PEG tube placement and screen and transfer to LTAC unit when medically stable. Comment Review of Relevant I have reviewed the following items warner (where applicable) has been applied. Labs Laboratory Tests Test 01/29/20 11:14 01/29/20 16:36 01/29/20 19:28 01/30/20 07:27 Glucose (Fingerstick) 191 mg/dL (70-99) 296 mg/dL (70-99) 265 mg/dL (70-99) 203 mg/dL (70-99) Test 01/30/20 11:21 01/30/20 16:47 01/30/20 19:14 01/31/20 04:45 Glucose (Fingerstick) 190 mg/dL (70-99) 261 mg/dL (70-99) 204 mg/dL (70-99) Sodium Level 137 mmol/L (136-145) Potassium Level 5.3 mmol/L (3.5-5.1) Chloride Level 105 mmol/L (98-107) Carbon Dioxide Level 19 mmol/L (21-32) Anion Gap 13 (6-14) Blood Urea Nitrogen 54 mg/dL (7-20) Creatinine 1.4 mg/dL (0.6-1.0) Estimated GFR (Cockcroft-Gault) 45.5 Glucose Level 169 mg/dL (70-99) Calcium Level 10.7 mg/dL (8.5-10.1) Test 01/31/20 07:42 Glucose (Fingerstick) 164 mg/dL (70-99) Laboratory Tests Test 01/30/20 11:21 01/30/20 16:47 01/30/20 19:14 01/31/20 04:45 Glucose (Fingerstick) 190 mg/dL (70-99) 261 mg/dL (70-99) 204 mg/dL (70-99) Sodium Level 137 mmol/L (136-145) Potassium Level 5.3 mmol/L (3.5-5.1) Chloride Level 105 mmol/L (98-107) Carbon Dioxide Level 19 mmol/L (21-32) Anion Gap 13 (6-14) Blood Urea Nitrogen 54 mg/dL (7-20) Creatinine 1.4 mg/dL (0.6-1.0) Estimated GFR (Cockcroft-Gault) 45.5 Glucose Level 169 mg/dL (70-99) Calcium Level 10.7 mg/dL (8.5-10.1) Test 01/31/20 07:42 Glucose (Fingerstick) 164 mg/dL (70-99) Medications Current Medications Clonidine HCl (Catapres) 0.2 mg 1X ONCE PO Last administered on 01/23/20at 17:38; Start 01/23/20 at 17:30; Stop 01/23/20 at 17:31; Status DC Ondansetron HCl (Zofran) 4 mg PRN Q8HRS PRN IV NAUSEA/VOMITING; Start 01/23/20 at 17:45; Stop 01/24/20 at 17:44; Status DC Morphine Sulfate (Morphine Sulfate) 2 mg PRN Q2HR PRN IV PAIN; Start 01/23/20 at 17:45; Stop 01/24/20 at 17:44; Status DC Dextrose/Sodium Chloride 1,000 ml @ 100 mls/hr 1X ONCE IV Last administered on 01/23/20at 19:24; Start 01/23/20 at 17:45; Stop 01/24/20 at 03:44; Status DC Pharmacy Consult (C.diff Med Screen By Rx) 1 each 1X ONCE MC Last administered on 01/24/20at 08:26; Start 01/24/20 at 09:00; Stop 01/24/20 at 09:01; Status DC Labetalol HCl (Normodyne Iv Push) 20 mg PRN Q4HRS PRN IVP HYPERTENSION, 2nd choice Last administered on 01/26/20at 00:17; Start 01/24/20 at 04:15 Clonidine HCl (Catapres Tts-3) 1 patch WEEKLY TD ; Start 01/24/20 at 09:00; Stop 01/24/20 at 05:21; Status DC Piperacillin Sod/ Tazobactam Sod (Zosyn Per Pharmacy) 1 each PRN DAILY PRN MC SEE COMMENTS; Start 01/24/20 at 04:30; Stop 01/24/20 at 09:32; Status DC Piperacillin Sod/ Tazobactam Sod 3.375 gm/Sodium Chloride 50 ml @ 100 mls/hr Q6H IV Last administered on 01/24/20at 05:06; Start 01/24/20 at 05:00; Stop 01/24/20 at 09:30; Status DC Clonidine HCl (Catapres Tts-3) 1 patch WEEKLY TD Last administered on 01/31/20at 08:22; Start 01/24/20 at 16:00 Clonidine HCl (Catapres Tts-3) 1 patch 1X ONCE TD ; Start 01/24/20 at 05:30; Stop 01/24/20 at 05:31; Status DC Levetiracetam (Keppra) 500 mg BID PO ; Start 01/24/20 at 09:00; Status Cancel Acetaminophen (Tylenol) 650 mg PRN Q6HRS PRN PO TEMP > 100.4F; Start 01/24/20 at 08:30; Stop 01/26/20 at 12:00; Status DC Acetaminophen (Tylenol Supp) 650 mg PRN Q4HRS PRN ME TEMP > 100.4F; Start 01/24/20 at 08:30 Aspirin (Ecotrin) 325 mg DAILYWBKFT PO Last administered on 01/31/20at 08:23; Start 01/25/20 at 08:00 Aspirin (Aspirin Rectal Supp) 300 mg PRN DAILY PRN ME IF UNABLE TO TAKE PO; Start 01/24/20 at 08:30 Lorazepam (Ativan Inj) 2 mg PRN Q4HRS PRN IVP ANXIETY / AGITATION Last administered on 01/24/20at 10:14; Start 01/24/20 at 10:00; Stop 01/24/20 at 16:35; Status DC Acetaminophen (Tylenol) 1,000 mg PRN Q8HRS PRN PO MILD PAIN OR FEVER; Start 01/24/20 at 10:15 Aspirin (Ecotrin) 81 mg DAILY PO ; Start 01/25/20 at 09:00; Status UNV Vitamin B Complex/ Vitamin C (Vicki-Stacey) 1 tab DAILY PO Last administered on 01/31/20at 08:24; Start 01/25/20 at 09:00 Hydralazine HCl (Apresoline) 25 mg BID PO Last administered on 01/31/20at 08:24; Start 01/24/20 at 21:00 Insulin Human Lispro (HumaLOG) 2 units DAILYWLUN SQ Last administered on 01/30/20at 11:43; Start 01/24/20 at 12:00 Insulin Human Lispro (HumaLOG) 4 units DAILYWBKFT SQ Last administered on 01/30/20at 08:00; Start 01/25/20 at 08:00 Insulin Human Lispro (HumaLOG) 8 units DAILYWSUP SQ Last administered on 01/30/20at 17:54; Start 01/24/20 at 17:00 Lisinopril (Prinivil) 20 mg DAILY PO Last administered on 01/31/20at 08:25; Start 01/24/20 at 12:00 Prednisone (Prednisone) 2 mg DAILY PO Last administered on 01/26/20at 10:15; Start 01/24/20 at 12:00; Stop 01/26/20 at 12:24; Status DC Quetiapine Fumarate (SEROquel) 25 mg BID PO Last administered on 01/26/20at 21:14; Start 01/24/20 at 12:00; Stop 01/27/20 at 09:52; Status DC Tacrolimus (Prograf) 0.5 mg BID PO Last administered on 01/31/20at 08:24; Start 01/24/20 at 12:00 Trazodone HCl (Desyrel) 50 mg QHS PO Last administered on 01/26/20at 21:14; Start 01/24/20 at 21:00; Stop 01/27/20 at 09:52; Status DC Fluconazole (Diflucan) 200 mg DAILY PO Last administered on 01/31/20at 08:24; Start 01/24/20 at 11:00 Insulin Glargine (Lantus Syringe) 18 unit QHS SQ ; Start 01/24/20 at 21:00; Stop 01/24/20 at 20:59; Status DC Olanzapine (ZyPREXA) 10 mg QHS PO Last administered on 01/26/20at 21:14; Start 01/24/20 at 21:00; Stop 01/27/20 at 09:52; Status DC Enoxaparin Sodium (Lovenox 40mg Syringe) 40 mg Q24H SQ Last administered on 01/26/20at 10:12; Start 01/24/20 at 11:00; Stop 01/26/20 at 12:24; Status DC Amino Acids/ Glycerin/ Electrolytes 1,000 ml @ 75 mls/hr [id number] IV Last administered on 01/29/20at 15:50; Start 01/24/20 at 13:45; Stop 01/30/20 at 10:00; Status DC Levetiracetam 500 mg/Dextrose 105 ml @ 420 mls/hr Q12HR IV Last administered on 01/26/20at 21:14; Start 01/24/20 at 13:45; Stop 01/27/20 at 08:47; Status DC Non-Formulary Medication 0.5 ea BID NG Last administered on 01/24/20at 21:12; Start 01/24/20 at 15:00; Stop 01/27/20 at 04:41; Status DC Lorazepam (Ativan Inj) 0.5 mg PRN Q4HRS PRN IVP ANXIETY / AGITATION Last administered on 01/25/20at 06:34; Start 01/24/20 at 16:45 Insulin Glargine (Lantus Syringe) 18 unit QHS SQ Last administered on 01/30/20at 21:15; Start 01/24/20 at 21:00 Dextrose (Dextrose 50%-Water Syringe) 12.5 gm PRN Q15MIN PRN IV SEE COMMENTS; Start 01/24/20 at 21:45 Enalaprilat (Vasotec Inj) 1.25 mg PRN Q6HRS PRN IVP HYPERTENSION, 1st choice; Start 01/25/20 at 12:00 Prednisone (Prednisone) 5 mg DAILY PO Last administered on 01/31/20at 08:25; Start 01/27/20 at 09:00 Levetiracetam (Keppra) 500 mg BID PO Last administered on 6/5/20at 08:23; Start 01/27/20 at 09:00 Tacrolimus (Prograf Oral Susp) 0.5 mg STK-MED ONCE .ROUTE ; Start 01/24/20 at 21:00; Stop 01/27/20 at 14:30; Status DC Tacrolimus (Prograf Oral Susp) 0.5 mg STK-MED ONCE .ROUTE ; Start 01/24/20 at 21:00; Stop 01/27/20 at 14:30; Status DC Cefazolin Sodium (Ancef) 1 gm 1X ONCE IVP ; Start 01/31/20 at 12:00; Stop 01/31/20 at 12:01 Ringer's Solution 1,000 ml @ 50 mls/hr Q20H IV ; Start 01/31/20 at 07:00; Stop 01/31/20 at 18:59 Ringer's Solution 1,000 ml @ 75 mls/hr 1X ONCE IV ; Start 01/31/20 at 08:15; Stop 01/31/20 at 21:34 Active Scripts Active Diflucan (Fluconazole) 100 Mg Tablet 200 Mg PO DAILY Reported Zyprexa (Olanzapine) 10 Mg Tablet 1 Tab PO QHS Trazodone Hcl 50 Mg Tablet 1 Tab PO QHS Seroquel (Quetiapine Fumarate) 25 Mg Tablet 25 Mg PO BID Humalog (Insulin Lispro) 100 Unit/1 Ml Vial 2 Unit SQ DAILYBFRLUN Lisinopril 20 Mg Tablet 1 Tab PO DAILY Acetaminophen 500 Mg Tablet 2 Tab PO PRN Q8HRS PRN 15 Days Prednisone 1 Mg Tablet 2 Mg PO DAILY Humalog (Insulin Lispro) 100 Unit/1 Ml Vial 8 Unit SQ DAILYBFRSUP Humalog (Insulin Lispro) 100 Unit/1 Ml Vial 4 Unit SQ DAILYWBKFT Hydralazine Hcl 25 Mg Tablet 1 Tab PO BID Aspir-Low (Aspirin) 81 Mg Tablet. 1 Tab PO DAILY Prograf (Tacrolimus) 1 Mg Capsule 0.5 Mg PO BID Levemir (Insulin Detemir) 100 Unit/1 Ml Vial 18 Unit SQ QHS Hold for FSBS below 90 and call Nephro-Stacey Tablet (Folic Acid/Vitamin B Comp W-C) 0.8 Mg Tablet 1 Tab PO DAILY Levetiracetam 500 Mg Tablet 500 Mg PO BID Vitals/I & O Vital Sign - Last 24 Hours 01/30/20 01/30/20 01/30/20 01/30/20 11:36 15:37 19:44 20:00 Temp 97.9 98.0 97.9 97.9 98.0 97.9 Pulse 73 76 71 Resp 16 16 16 B/P (MAP) 138/63 (88) 132/66 (88) 145/63 (90) Pulse Ox 96 96 99 O2 Delivery Room Air Room Air Room Air Room Air 01/30/20 01/30/20 01/31/20 01/31/20 21:15 23:36 02:45 08:24 Temp 97.6 97.7 97.6 97.7 Pulse 79 82 85 Resp 16 16 B/P (MAP) 145/63 169/58 (95) 140/68 (92) 202/69 Pulse Ox 98 99 O2 Delivery Room Air Room Air 01/31/20 08:25 Pulse 85 B/P (MAP) 202/69 Intake and Output 01/30/20 01/30/20 01/31/20 15:00 23:00 07:00 Intake Total 150 ml 20 ml 120 ml Output Total 300 ml 0 ml Balance -150 ml 20 ml 120 ml Nutrition Consultation Dietary Evaluation: Recommendations by RD: Dietary education by RD, Increase Calorie Intake, PPN/TPN Comments: Continue w/PPN for short-term nutrition support needs to supplement poor PO intake Continue w/diet per WILLOWER, current diet dysphagia I w/honey thick liquids; recommend Ensure pudding w/lunch and dinner Expected Outcomes/Goals: Diet advancement - met, new goal established New goal 01/26: PO intake to meet >75% est needs Malnutrition Findings: Body Fat Depletion (Non Severe: Mild Depletion Weight Status: Appropriate RADHA HUITRON MD Jan 31, 2020 09:22
--- NOTE | 2020-01-31 09:38 | PDOC ---
PROGRESS NOTES Subjective Subjective confused,not much verbal today Objective Objective Vital Signs Date Time Temp Pulse Resp B/P (MAP) Pulse Ox O2 Delivery O2 Flow Rate FiO2 01/31/20 08:25 85 202/69 01/31/20 07:00 98.0 20 100 Room Air 98.0 Intake and Output 01/31/20 07:00 Intake Total 290 ml Output Total 300 ml Balance -10 ml Intake Oral 290 ml Output Urine Total 300 ml # Voids 2 Physical Exam Abdomen: Normal bowel sounds, No tenderness Heart: Regular rate Extremities: No clubbing, No cyanosis General: No acute distress HEENT: Atraumatic, PERRLA Lungs: Clear to auscultation MUSCULOSKELETAL: No deformity, No swelling Neuro: Other (CONFUSED, lethargic) Skin: No breakdown Diagnosis Problem List Problems Medical Problems: (1) Cough Status: Acute (2) Left-sided weakness Status: Acute Assessment Assessment Problems Medical Problems: (1) Cough Status: Acute (2) Left-sided weakness Status: Acute Metabolic Encephalopathy. Brain MRI neg acute findings , old CVA History of epilepsy. Diabetes with peripheral neuropathy. h/o disseminated cryptococcus, on fluconazole. Gastroesophageal reflux disease. History of kidney transplant. Peripheral arterial disease. Chronic kidney disease, status post renal transplant. Coronary artery disease.s/p cabg COVID-19 neg, 01/23 Plan Plan of Care: PEG tube placement today select screen , hopefully can go over the weekend spoke with pts daughter,feeding tube. LTAC or SNU. labs reviewed ok,pot 5.3 cr 1.4 PT/OT /Rehab consult spinal tap today 01/27/20. wbc 0 holding Lovenox for peg tube spoke with pts daughter Stacia. labs reviewed, cryptococal antigen titre1;40 high in serum on procalamine for now d/c zyprexa+seroquel +Trazadone, Pt admitted to hospitalist service,transferred to my care 01/26/20. Plan Plan of Care Problems Medical Problems: (1) Cough Status: Acute (2) Left-sided weakness Status: Acute Comment Review of Relevant I have reviewed the following items warner (where applicable) has been applied. Labs Laboratory Tests Test 01/30/20 11:21 01/30/20 16:47 01/30/20 19:14 01/31/20 04:45 Glucose (Fingerstick) 190 mg/dL (70-99) 261 mg/dL (70-99) 204 mg/dL (70-99) Sodium Level 137 mmol/L (136-145) Potassium Level 5.3 mmol/L (3.5-5.1) Chloride Level 105 mmol/L (98-107) Carbon Dioxide Level 19 mmol/L (21-32) Anion Gap 13 (6-14) Blood Urea Nitrogen 54 mg/dL (7-20) Creatinine 1.4 mg/dL (0.6-1.0) Estimated GFR (Cockcroft-Gault) 45.5 Glucose Level 169 mg/dL (70-99) Calcium Level 10.7 mg/dL (8.5-10.1) Test 01/31/20 07:42 Glucose (Fingerstick) 164 mg/dL (70-99) Medications Current Medications Cefazolin Sodium (Ancef) 1 gm 1X ONCE IVP ; Start 01/31/20 at 12:00; Stop 01/31/20 at 12:01 Ringer's Solution 1,000 ml @ 50 mls/hr Q20H IV ; Start 01/31/20 at 07:00; Stop 01/31/20 at 18:59 Ringer's Solution 1,000 ml @ 75 mls/hr 1X ONCE IV ; Start 01/31/20 at 08:15; Stop 01/31/20 at 21:34 Vitals/I & O Vital Sign - Last 24 Hours 01/30/20 01/30/20 01/30/20 01/30/20 11:36 15:37 19:44 20:00 Temp 97.9 98.0 97.9 97.9 98.0 97.9 Pulse 73 76 71 Resp 16 16 16 B/P (MAP) 138/63 (88) 132/66 (88) 145/63 (90) Pulse Ox 96 96 99 O2 Delivery Room Air Room Air Room Air Room Air 01/30/20 01/30/20 01/31/20 01/31/20 21:15 23:36 02:45 07:00 Temp 97.6 97.7 98.0 97.6 97.7 98.0 Pulse 79 82 81 Resp 16 16 20 B/P (MAP) 145/63 169/58 (95) 140/68 (92) 188/79 (115) Pulse Ox 98 99 100 O2 Delivery Room Air Room Air Room Air 01/31/20 01/31/20 08:24 08:25 Pulse 85 85 B/P (MAP) 202/69 202/69 Intake and Output 01/30/20 01/30/20 01/31/20 15:00 23:00 07:00 Intake Total 150 ml 20 ml 120 ml Output Total 300 ml 0 ml Balance -150 ml 20 ml 120 ml Justicifation of Admission Dx: Justifications for Admission: Justification of Admission Dx: Yes Sepsis: Altered Mental Status Altered Mental Status: Altered Mental Status (immune compramised,s/p kidney transplant.) Nutrition Consultation Dietary Evaluation: Recommendations by RD: Dietary education by RD, Increase Calorie Intake, PPN/TPN Comments: Continue w/PPN for short-term nutrition support needs to supplement poor PO intake Continue w/diet per BUILDING SURVEYOR, current diet dysphagia I w/honey thick liquids; recommend Ensure pudding w/lunch and dinner Expected Outcomes/Goals: Diet advancement - met, new goal established New goal 01/26: PO intake to meet >75% est needs Malnutrition Findings: Body Fat Depletion (Non Severe: Mild Depletion Weight Status: Appropriate AUGUSTO BRUNER MD Jan 31, 2020 09:38
--- NOTE | 2020-01-31 09:47 | PDOC ---
PROGRESS NOTES Assessment Problems Medical Problems: (1) Cough Status: Acute (2) Left-sided weakness Status: Acute Metabolic encephalopathy No acute stroke. Dementia and multiple psychiatric diagnoses. 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 Diabetic peripheral neuropathy Ruled out COVID Note LP done, negative, elevated protein in isolation is nonspecific, may be seen, for instance, in diabetes Medical issues: status-post renal transplant, chronic allograft nephropathy, CKD stage 3, istory of disseminated Cryptococcus, coronary artery disease, anemia, lung nodules Plan No additional stroke or TIA workup required Levetiracetam No further neurological tests or treatment Return to long term when medically stable Subjective No complaints Objective Vital Signs Date Time Temp Pulse Resp B/P (MAP) Pulse Ox O2 Delivery O2 Flow Rate FiO2 01/31/20 08:25 85 202/69 01/31/20 07:00 98.0 20 100 Room Air 98.0 Intake and Output 01/31/20 07:00 Intake Total 290 ml Output Total 300 ml Balance -10 ml Intake Oral 290 ml Output Urine Total 300 ml # Voids 2 PHYSICAL EXAM Alert. Oriented only to person. PERRL. EOMI. CN: no focal findings. Muscle tone: normal. Muscle strength: 4/5 DTR: 1+ Plantar reflex: flexor Gait: not examined in bed. Sensory exam: stocking loss. Cerebellar: Not cooperative Review of Relevant I have reviewed the following items warner (where applicable) has been applied. Labs Laboratory Tests Test 01/29/20 11:14 01/29/20 16:36 01/29/20 19:28 01/30/20 07:27 Glucose (Fingerstick) 191 mg/dL (70-99) 296 mg/dL (70-99) 265 mg/dL (70-99) 203 mg/dL (70-99) Test 01/30/20 11:21 01/30/20 16:47 01/30/20 19:14 01/31/20 04:45 Glucose (Fingerstick) 190 mg/dL (70-99) 261 mg/dL (70-99) 204 mg/dL (70-99) Sodium Level 137 mmol/L (136-145) Potassium Level 5.3 mmol/L (3.5-5.1) Chloride Level 105 mmol/L (98-107) Carbon Dioxide Level 19 mmol/L (21-32) Anion Gap 13 (6-14) Blood Urea Nitrogen 54 mg/dL (7-20) Creatinine 1.4 mg/dL (0.6-1.0) Estimated GFR (Cockcroft-Gault) 45.5 Glucose Level 169 mg/dL (70-99) Calcium Level 10.7 mg/dL (8.5-10.1) Test 01/31/20 07:42 Glucose (Fingerstick) 164 mg/dL (70-99) Laboratory Tests Test 01/30/20 11:21 01/30/20 16:47 01/30/20 19:14 01/31/20 04:45 Glucose (Fingerstick) 190 mg/dL (70-99) 261 mg/dL (70-99) 204 mg/dL (70-99) Sodium Level 137 mmol/L (136-145) Potassium Level 5.3 mmol/L (3.5-5.1) Chloride Level 105 mmol/L (98-107) Carbon Dioxide Level 19 mmol/L (21-32) Anion Gap 13 (6-14) Blood Urea Nitrogen 54 mg/dL (7-20) Creatinine 1.4 mg/dL (0.6-1.0) Estimated GFR (Cockcroft-Gault) 45.5 Glucose Level 169 mg/dL (70-99) Calcium Level 10.7 mg/dL (8.5-10.1) Test 01/31/20 07:42 Glucose (Fingerstick) 164 mg/dL (70-99) Medications Current Medications Clonidine HCl (Catapres) 0.2 mg 1X ONCE PO Last administered on 01/23/20at 17:38; Start 01/23/20 at 17:30; Stop 01/23/20 at 17:31; Status DC Ondansetron HCl (Zofran) 4 mg PRN Q8HRS PRN IV NAUSEA/VOMITING; Start 01/23/20 at 17:45; Stop 01/24/20 at 17:44; Status DC Morphine Sulfate (Morphine Sulfate) 2 mg PRN Q2HR PRN IV PAIN; Start 01/23/20 at 17:45; Stop 01/24/20 at 17:44; Status DC Dextrose/Sodium Chloride 1,000 ml @ 100 mls/hr 1X ONCE IV Last administered on 01/23/20at 19:24; Start 01/23/20 at 17:45; Stop 01/24/20 at 03:44; Status DC Pharmacy Consult (C.diff Med Screen By Rx) 1 each 1X ONCE MC Last administered on 01/24/20at 08:26; Start 01/24/20 at 09:00; Stop 01/24/20 at 09:01; Status DC Labetalol HCl (Normodyne Iv Push) 20 mg PRN Q4HRS PRN IVP HYPERTENSION, 2nd choice Last administered on 01/26/20at 00:17; Start 01/24/20 at 04:15 Clonidine HCl (Catapres Tts-3) 1 patch WEEKLY TD ; Start 01/24/20 at 09:00; Stop 01/24/20 at 05:21; Status DC Piperacillin Sod/ Tazobactam Sod (Zosyn Per Pharmacy) 1 each PRN DAILY PRN MC SEE COMMENTS; Start 01/24/20 at 04:30; Stop 01/24/20 at 09:32; Status DC Piperacillin Sod/ Tazobactam Sod 3.375 gm/Sodium Chloride 50 ml @ 100 mls/hr Q6H IV Last administered on 01/24/20at 05:06; Start 01/24/20 at 05:00; Stop 01/24/20 at 09:30; Status DC Clonidine HCl (Catapres Tts-3) 1 patch WEEKLY TD Last administered on 01/31/20at 08:22; Start 01/24/20 at 16:00 Clonidine HCl (Catapres Tts-3) 1 patch 1X ONCE TD ; Start 01/24/20 at 05:30; Stop 01/24/20 at 05:31; Status DC Levetiracetam (Keppra) 500 mg BID PO ; Start 01/24/20 at 09:00; Status Cancel Acetaminophen (Tylenol) 650 mg PRN Q6HRS PRN PO TEMP > 100.4F; Start 01/24/20 at 08:30; Stop 01/26/20 at 12:00; Status DC Acetaminophen (Tylenol Supp) 650 mg PRN Q4HRS PRN WA TEMP > 100.4F; Start 01/24/20 at 08:30 Aspirin (Ecotrin) 325 mg DAILYWBKFT PO Last administered on 01/31/20at 08:23; Start 01/25/20 at 08:00 Aspirin (Aspirin Rectal Supp) 300 mg PRN DAILY PRN WA IF UNABLE TO TAKE PO; Start 01/24/20 at 08:30 Lorazepam (Ativan Inj) 2 mg PRN Q4HRS PRN IVP ANXIETY / AGITATION Last administered on 01/24/20at 10:14; Start 01/24/20 at 10:00; Stop 01/24/20 at 16:35; Status DC Acetaminophen (Tylenol) 1,000 mg PRN Q8HRS PRN PO MILD PAIN OR FEVER; Start 01/24/20 at 10:15 Aspirin (Ecotrin) 81 mg DAILY PO ; Start 01/25/20 at 09:00; Status UNV Vitamin B Complex/ Vitamin C (Vicki-Stacey) 1 tab DAILY PO Last administered on 01/31/20at 08:24; Start 01/25/20 at 09:00 Hydralazine HCl (Apresoline) 25 mg BID PO Last administered on 01/31/20at 08:24; Start 01/24/20 at 21:00 Insulin Human Lispro (HumaLOG) 2 units DAILYWLUN SQ Last administered on 01/30/20at 11:43; Start 01/24/20 at 12:00 Insulin Human Lispro (HumaLOG) 4 units DAILYWBKFT SQ Last administered on 01/30/20at 08:00; Start 01/25/20 at 08:00 Insulin Human Lispro (HumaLOG) 8 units DAILYWSUP SQ Last administered on 01/30/20at 17:54; Start 01/24/20 at 17:00 Lisinopril (Prinivil) 20 mg DAILY PO Last administered on 01/31/20 08:25; Start 01/24/20 at 12:00 Prednisone (Prednisone) 2 mg DAILY PO Last administered on 01/26/20at 10:15; Start 01/24/20 at 12:00; Stop 01/26/20 at 12:24; Status DC Quetiapine Fumarate (SEROquel) 25 mg BID PO Last administered on 01/26/20at 21:14; Start 01/24/20 at 12:00; Stop 01/27/20 at 09:52; Status DC Tacrolimus (Prograf) 0.5 mg BID PO Last administered on 01/31/20at 08:24; Start 01/24/20 at 12:00 Trazodone HCl (Desyrel) 50 mg QHS PO Last administered on 01/26/20at 21:14; Start 01/24/20 at 21:00; Stop 01/27/20 at 09:52; Status DC Fluconazole (Diflucan) 200 mg DAILY PO Last administered on 01/31/20at 08:24; Start 01/24/20 at 11:00 Insulin Glargine (Lantus Syringe) 18 unit QHS SQ ; Start 01/24/20 at 21:00; Stop 01/24/20 at 20:59; Status DC Olanzapine (ZyPREXA) 10 mg QHS PO Last administered on 01/26/20at 21:14; Start 01/24/20 at 21:00; Stop 01/27/20 at 09:52; Status DC Enoxaparin Sodium (Lovenox 40mg Syringe) 40 mg Q24H SQ Last administered on 01/26/20at 10:12; Start 01/24/20 at 11:00; Stop 01/26/20 at 12:24; Status DC Amino Acids/ Glycerin/ Electrolytes 1,000 ml @ 75 mls/hr [id number] IV Last administered on 01/29/20at 15:50; Start 01/24/20 at 13:45; Stop 01/30/20 at 10:00; Status DC Levetiracetam 500 mg/Dextrose 105 ml @ 420 mls/hr Q12HR IV Last administered on 01/26/20at 21:14; Start 01/24/20 at 13:45; Stop 01/27/20 at 08:47; Status DC Non-Formulary Medication 0.5 ea BID NG Last administered on 01/24/20at 21:12; Start 01/24/20 at 15:00; Stop 01/27/20 at 04:41; Status DC Lorazepam (Ativan Inj) 0.5 mg PRN Q4HRS PRN IVP ANXIETY / AGITATION Last administered on 01/25/20at 06:34; Start 01/24/20 at 16:45 Insulin Glargine (Lantus Syringe) 18 unit QHS SQ Last administered on 01/30/20at 21:15; Start 01/24/20 at 21:00 Dextrose (Dextrose 50%-Water Syringe) 12.5 gm PRN Q15MIN PRN IV SEE COMMENTS; Start 01/24/20 at 21:45 Enalaprilat (Vasotec Inj) 1.25 mg PRN Q6HRS PRN IVP HYPERTENSION, 1st choice; Start 01/25/20 at 12:00 Prednisone (Prednisone) 5 mg DAILY PO Last administered on 01/31/20at 08:25; Start 01/27/20 at 09:00 Levetiracetam (Keppra) 500 mg BID PO Last administered on 01/31/20at 08:23; Start 01/27/20 at 09:00 Tacrolimus (Prograf Oral Susp) 0.5 mg STK-MED ONCE .ROUTE ; Start 01/24/20 at 21:00; Stop 01/27/20 at 14:30; Status DC Tacrolimus (Prograf Oral Susp) 0.5 mg STK-MED ONCE .ROUTE ; Start 01/24/20 at 21:00; Stop 01/27/20 at 14:30; Status DC Cefazolin Sodium (Ancef) 1 gm 1X ONCE IVP ; Start 01/31/20 at 12:00; Stop 01/31/20 at 12:01 Ringer's Solution 1,000 ml @ 50 mls/hr Q20H IV ; Start 01/31/20 at 07:00; Stop 01/31/20 at 18:59 Ringer's Solution 1,000 ml @ 75 mls/hr 1X ONCE IV ; Start 01/31/20 at 08:15; Stop 01/31/20 at 21:34 Hydralazine HCl (Apresoline Inj) 10 mg PRN Q4HRS PRN IVP ELEVATED BP, SEE COMMENTS; Start 01/31/20 at 09:45 Active Scripts Active Diflucan (Fluconazole) 100 Mg Tablet 200 Mg PO DAILY Reported Zyprexa (Olanzapine) 10 Mg Tablet 1 Tab PO QHS Trazodone Hcl 50 Mg Tablet 1 Tab PO QHS Seroquel (Quetiapine Fumarate) 25 Mg Tablet 25 Mg PO BID Humalog (Insulin Lispro) 100 Unit/1 Ml Vial 2 Unit SQ DAILYBFRLUN Lisinopril 20 Mg Tablet 1 Tab PO DAILY Acetaminophen 500 Mg Tablet 2 Tab PO PRN Q8HRS PRN 15 Days Prednisone 1 Mg Tablet 2 Mg PO DAILY Humalog (Insulin Lispro) 100 Unit/1 Ml Vial 8 Unit SQ DAILYBFRSUP Humalog (Insulin Lispro) 100 Unit/1 Ml Vial 4 Unit SQ DAILYWBKFT Hydralazine Hcl 25 Mg Tablet 1 Tab PO BID Aspir-Low (Aspirin) 81 Mg Tablet. 1 Tab PO DAILY Prograf (Tacrolimus) 1 Mg Capsule 0.5 Mg PO BID Levemir (Insulin Detemir) 100 Unit/1 Ml Vial 18 Unit SQ QHS Hold for FSBS below 90 and call Nephro-Stacey Tablet (Folic Acid/Vitamin B Comp W-C) 0.8 Mg Tablet 1 Tab PO DAILY Levetiracetam 500 Mg Tablet 500 Mg PO BID Vitals/I & O Vital Sign - Last 24 Hours 01/30/20 01/30/20 01/30/20 01/30/20 11:36 15:37 19:44 20:00 Temp 97.9 98.0 97.9 97.9 98.0 97.9 Pulse 73 76 71 Resp 16 16 16 B/P (MAP) 138/63 (88) 132/66 (88) 145/63 (90) Pulse Ox 96 96 99 O2 Delivery Room Air Room Air Room Air Room Air 01/30/20 01/30/20 01/31/20 01/31/20 21:15 23:36 02:45 07:00 Temp 97.6 97.7 98.0 97.6 97.7 98.0 Pulse 79 82 81 Resp 16 16 20 B/P (MAP) 145/63 169/58 (95) 140/68 (92) 188/79 (115) Pulse Ox 98 99 100 O2 Delivery Room Air Room Air Room Air 01/31/20 01/31/20 08:24 08:25 Pulse 85 85 B/P (MAP) 202/69 202/69 Intake and Output 01/30/20 01/30/20 01/31/20 15:00 23:00 07:00 Intake Total 150 ml 20 ml 120 ml Output Total 300 ml 0 ml Balance -150 ml 20 ml 120 ml Justicifation of Admission Dx: Justifications for Admission: Justification of Admission Dx: Yes Sepsis: Altered Mental Status Altered Mental Status: Altered Mental Status (immune compramised,s/p kidney transplant.) ISELA WASHINGTON MD Jan 31, 2020 09:47
[2020-01-31] MEDS: hydrALAZINE 20 MG/ML VIAL. IVP PRN (10:55)
[2020-01-31 11:00] VITALS: BP 151/49
[2020-01-31] MEDS: INSULIN LISPRO 300 UNITS/3 ML VIAL. SQ SCH ×3 (11:00→18:57)
--- NOTE | 2020-01-31 11:12 | PDOC ---
SUBJECTIVE ROS stable , getting PEG today OBJECTIVE Vital Signs Vital Signs Date Time Temp Pulse Resp B/P (MAP) Pulse Ox O2 Delivery O2 Flow Rate FiO2 01/31/20 10:55 78 161/63 01/31/20 08:00 Room Air 01/31/20 07:00 98.0 20 100 98.0 I & 0 Intake and Output 01/31/20 07:00 Intake Total 290 ml Output Total 300 ml Balance -10 ml Intake Oral 290 ml Output Urine Total 300 ml # Voids 2 PHYSICAL EXAM Physical Exam GENERAL: NAD HEENT: Oral mucosa moist. NECK: Supple LUNGS: No accessory muscle use HEART: S1, S2. regular ABDOMEN: Soft, nontender EXTREMITIES: No edema, No Mcl[place] DIAGNOSIS/ASSESSMENT Assessment & Plan S/P Cadaveric Renal Tx On Immunosuppressive meds (Prednisone and Prograf) Prograf level on 01/24- 2.8 HyperKalemia- Mild , intermirrent, On QUOC-I Chronic allograft Nephropathy - Cr 1.4 Stable renal function CKD stage 3- Cr at baseline HX OF Disseminated Cryptococcus (not new Dx) - on Chronic Fluconazole per ID Cryptococcal antigen in the blood 1 is to 40, CSF unremarkable Encephalopathy. Brain MRI neg acute findings DM - managed by Primary Coronary artery disease s/p CABG anemia- stable COMMENT/RELEVANT DATA Meds Current Medications Medications (Trade) Dose Ordered Sig/Te Start Time Stop Time Status Last Admin Dose Admin Acetaminophen (Tylenol Supp) 650 mg PRN Q4HRS PRN 01/24/20 08:30 Acetaminophen (Tylenol) 1,000 mg PRN Q8HRS PRN 01/24/20 10:15 Amino Acids/ Glycerin/ Electrolytes 1,000 ml @ 75 mls/hr [id number] 01/24/20 13:45 01/30/20 10:00 DC 01/29/20 15:50 75 MLS/HR Aspirin (Aspirin Rectal Supp) 300 mg PRN DAILY PRN 01/24/20 08:30 Aspirin (Ecotrin) 81 mg DAILY 01/25/20 09:00 UNV Cefazolin Sodium (Ancef) 1 gm 1X ONCE 01/31/20 12:00 01/31/20 12:01 Clonidine HCl (Catapres Tts-3) 1 patch 1X ONCE 01/24/20 05:30 01/24/20 05:31 DC Clonidine HCl (Catapres) 0.2 mg 1X ONCE 01/23/20 17:30 01/23/20 17:31 DC 01/23/20 17:38 0.2 MG Dextrose (Dextrose 50%-Water Syringe) 12.5 gm PRN Q15MIN PRN 01/24/20 21:45 Dextrose/Sodium Chloride 1,000 ml @ 100 mls/hr 1X ONCE 01/23/20 17:45 01/24/20 03:44 DC 01/23/20 19:24 100 MLS/HR Enalaprilat (Vasotec Inj) 1.25 mg PRN Q6HRS PRN 01/25/20 12:00 Enoxaparin Sodium (Lovenox 40mg Syringe) 40 mg Q24H 01/24/20 11:00 01/26/20 12:24 DC 01/26/20 10:12 40 MG Fluconazole (Diflucan) 200 mg DAILY 01/24/20 11:00 01/31/20 08:24 200 MG Hydralazine HCl (Apresoline Inj) 10 mg PRN Q4HRS PRN 01/31/20 09:45 01/31/20 10:55 10 MG Hydralazine HCl (Apresoline) 25 mg BID 01/24/20 21:00 01/31/20 08:24 25 MG Insulin Glargine (Lantus Syringe) 18 unit QHS 01/24/20 21:00 01/30/20 21:15 18 UNIT Insulin Human Lispro (HumaLOG) 8 units DAILYWSUP 01/24/20 17:00 01/30/20 17:54 8 UNITS Labetalol HCl (Normodyne Iv Push) 20 mg PRN Q4HRS PRN 01/24/20 04:15 01/26/20 00:17 20 MG Levetiracetam (Keppra) 500 mg BID 01/27/20 09:00 01/31/20 08:23 500 MG Levetiracetam 500 mg/Dextrose 105 ml @ 420 mls/hr Q12HR 01/24/20 13:45 01/27/20 08:47 DC 01/26/20 21:14 420 MLS/HR Lisinopril (Prinivil) 20 mg DAILY 01/24/20 12:00 01/31/20 08:25 20 MG Lorazepam (Ativan Inj) 0.5 mg PRN Q4HRS PRN 01/24/20 16:45 01/25/20 06:34 0.5 MG Morphine Sulfate (Morphine Sulfate) 2 mg PRN Q2HR PRN 01/23/20 17:45 01/24/20 17:44 DC Non-Formulary Medication 0.5 ea BID 01/24/20 15:00 01/27/20 04:41 DC 01/24/20 21:12 0.5 EA Olanzapine (ZyPREXA) 10 mg QHS 01/24/20 21:00 01/27/20 09:52 DC 01/26/20 21:14 10 MG Ondansetron HCl (Zofran) 4 mg PRN Q8HRS PRN 01/23/20 17:45 01/24/20 17:44 DC Pharmacy Consult (CViridianadiff Med Screen By Rx) 1 each 1X ONCE 01/24/20 09:00 01/24/20 09:01 DC 01/24/20 08:26 1 EACH Piperacillin Sod/ Tazobactam Sod (Zosyn Per Pharmacy) 1 each PRN DAILY PRN 01/24/20 04:30 01/24/20 09:32 DC Piperacillin Sod/ Tazobactam Sod 3.375 gm/Sodium Chloride 50 ml @ 100 mls/hr Q6H 01/24/20 05:00 01/24/20 09:30 DC 01/24/20 05:06 100 MLS/HR Prednisone (Prednisone) 5 mg DAILY 01/27/20 09:00 01/31/20 08:25 5 MG Quetiapine Fumarate (SEROquel) 25 mg BID 01/24/20 12:00 01/27/20 09:52 DC 01/26/20 21:14 25 MG Ringer's Solution 1,000 ml @ 75 mls/hr 1X ONCE 01/31/20 08:15 01/31/20 21:34 Tacrolimus (Prograf Oral Susp) 0.5 mg STK-MED ONCE 01/24/20 21:00 01/27/20 14:30 DC Tacrolimus (Prograf) 0.5 mg BID 01/24/20 12:00 01/31/20 08:24 0.5 MG Trazodone HCl (Desyrel) 50 mg QHS 01/24/20 21:00 01/27/20 09:52 DC 01/26/20 21:14 50 MG Vitamin B Complex/ Vitamin C (Vicki-Stacey) 1 tab DAILY 01/25/20 09:00 01/31/20 08:24 1 TAB Lab Laboratory Tests Test 01/30/20 11:21 01/30/20 16:47 01/30/20 19:14 01/31/20 04:45 Glucose (Fingerstick) 190 mg/dL (70-99) 261 mg/dL (70-99) 204 mg/dL (70-99) Sodium Level 137 mmol/L (136-145) Potassium Level 5.3 mmol/L (3.5-5.1) Chloride Level 105 mmol/L (98-107) Carbon Dioxide Level 19 mmol/L (21-32) Anion Gap 13 (6-14) Blood Urea Nitrogen 54 mg/dL (7-20) Creatinine 1.4 mg/dL (0.6-1.0) Estimated GFR (Cockcroft-Gault) 45.5 Glucose Level 169 mg/dL (70-99) Calcium Level 10.7 mg/dL (8.5-10.1) Test 01/31/20 07:42 01/31/20 10:35 Glucose (Fingerstick) 164 mg/dL (70-99) 177 mg/dL (70-99) Results All relevant outside records, renal labs, imaging studies, telemetry/EKG's were reviewed. Justicifation of Admission Dx: Justifications for Admission: Justification of Admission Dx: Yes Sepsis: Altered Mental Status Altered Mental Status: Altered Mental Status (immune compramised,s/p kidney transplant.) CASS HUITRON MD Jan 31, 2020 11:12
[2020-01-31] MEDS ORDERED: ceFAZolin SODIUM IV Push 1 GM VIAL. IVP ONE (12:00)
--- NOTE | 2020-01-31 12:32 | NUR ---
patient off floor for EGD with PEG placement procedure
[2020-01-31] MEDS ORDERED: PROPOFOL 10 MG/ML (20ML) VIAL. IV ONE (13:08)
--- NOTE | 2020-01-31 14:56 | PDOC4 ---
PROCEDURE Procedure EGD (anticipated PEG) Indication: Encephalopathy/poor oral intake. Meds: per anesthesia Findings: E--Normal G--some retained vegetable material/fluid. Normal otherwise. D--Normal bulb. --Unable to locate a window to place g-tube after long examination. Deferred. Kasandra. well. IMP: Normal exam save some retained gastric material. Unable to locate safe window for PEG placement. REC: Consider surgical opinion for gastrostomy. DORCAS REGALADO MD Jan 31, 2020 14:55
[2020-01-31 15:00] VITALS: BP 113/37
--- NOTE | 2020-01-31 16:00 | NUR ---
Patient returned without a PEG placement.
[2020-01-31 19:47] VITALS: BP 156/60
[2020-01-31] MEDS: INSULIN GLARGINE SYRINGE. SQ SCH (21:00)
[2020-01-31 23:54] VITALS: BP 128/39
[2020-02-01 03:41] VITALS: BP 110/42
[2020-02-01 07:04] LABS: BASO % 0 % (0-3); EOS # 0.2 x10^3/uL (0.0-0.7); EOS % 2 % (0-3); HEMATOCRIT 39.5 % (36.0-47.0); HEMOGLOBIN 12.7 g/dL (12.0-15.5); LYMPH # 1.4 x10^3/uL (1.0-4.8); LYMPH % 16 % (24-48); MEAN CORPUSCULAR HEMOGLOBIN 26 pg (25-35); MEAN CORPUSCULAR HGB CONC 32 g/dL (31-37); MEAN CORPUSCULAR VOLUME 81 fL (79-100); MONO # 0.8 x10^3/uL (0.0-1.1); MONO % 9 % (0-9); NEUT # 6.3 x10^3/uL (1.8-7.7); NEUT % 72 % (31-73); PLATELET COUNT 291 x10^3/uL (140-400); RED BLOOD COUNT 4.88 x10^6/uL (3.50-5.40); RED CELL DISTRIBUTION WIDTH 15.9 % (11.5-14.5); WHITE BLOOD COUNT 8.7 x10^3/uL (4.0-11.0)
[2020-02-01 07:54] VITALS: BP 152/128
[2020-02-01] MEDS: INSULIN LISPRO 300 UNITS/3 ML VIAL. SQ SCH ×3 (08:00→17:20)
[2020-02-01] MEDS: hydrALAZINE 25 MG TABLET PO SCH ×2 (10:35→21:00)
[2020-02-01] MEDS: predniSONE 5 MG TABLET PO SCH (10:36)
[2020-02-01] MEDS: FLUCONAZOLE 100 MG TABLET. PO SCH (10:36)
[2020-02-01] MEDS: TACROLIMUS 0.5 MG CAPSULE PO SCH ×2 (10:36→23:33)
[2020-02-01] MEDS: FOLIC/VIT B COMP W-C (RENAL) TABLET. PO SCH (10:36)
[2020-02-01] MEDS: ASPIRIN ENTERIC COATED 325 MG TABLET.DR. PO SCH (10:36)
[2020-02-01] MEDS: levETIRAcetam 500 MG TABLET PO SCH ×2 (10:36→23:33)
[2020-02-01] MEDS: LISINOPRIL 20 MG TABLET PO SCH (10:37)
[2020-02-01 10:40] LABS: CALCIUM 10.8 mg/dL (8.5-10.1); CREATININE 1.6 mg/dL (0.6-1.0); POTASSIUM 5.9 mmol/L (3.5-5.1)
--- NOTE | 2020-02-01 10:54 | PDOC ---
IM PROGRESS NOTES- Subjective Subjective Patient is nonverbal unable to do systems reviewed. Objective Vitals/I&O Vital Signs Date Time Temp Pulse Resp B/P (MAP) Pulse Ox O2 Delivery O2 Flow Rate FiO2 02/01/20 10:37 86 152/128 02/01/20 07:54 98.2 15 97 Room Air 98.2 01/31/20 14:50 2 Physical Exam Physical Exam General appearance - alert, nonverbal and in no distress Mental Status - alert, confused Head - normal Chest -decreased breath sounds at bases Heart - S1 and S2 normal Abdomen - soft, nontender Neurological - alert Extremities - no pedal edema Skin - warm and dry Labs Laboratory Tests Test 01/31/20 17:21 01/31/20 20:53 02/01/20 06:41 02/01/20 07:20 Glucose (Fingerstick) 139 mg/dL (70-99) H 79 mg/dL (70-99) 112 mg/dL (70-99) H White Blood Count 8.7 x10^3/uL (4.0-11.0) Red Blood Count 4.88 x10^6/uL (3.50-5.40) Hemoglobin 12.7 g/dL (12.0-15.5) Hematocrit 39.5 % (36.0-47.0) Mean Corpuscular Volume 81 fL (79-100) Mean Corpuscular Hemoglobin 26 pg (25-35) Mean Corpuscular Hemoglobin Concent 32 g/dL (31-37) Red Cell Distribution Width 15.9 % (11.5-14.5) H Platelet Count 291 x10^3/uL (140-400) Neutrophils (%) (Auto) 72 % (31-73) Lymphocytes (%) (Auto) 16 % (24-48) L Monocytes (%) (Auto) 9 % (0-9) Eosinophils (%) (Auto) 2 % (0-3) Basophils (%) (Auto) 0 % (0-3) Neutrophils # (Auto) 6.3 x10^3/uL (1.8-7.7) Lymphocytes # (Auto) 1.4 x10^3/uL (1.0-4.8) Monocytes # (Auto) 0.8 x10^3/uL (0.0-1.1) Eosinophils # (Auto) 0.2 x10^3/uL (0.0-0.7) Basophils # (Auto) 0.0 x10^3/uL (0.0-0.2) Test 02/01/20 10:00 Sodium Level 138 mmol/L (136-145) Potassium Level 5.9 mmol/L (3.5-5.1) H Chloride Level 107 mmol/L (98-107) Carbon Dioxide Level 21 mmol/L (21-32) Anion Gap 10 (6-14) Blood Urea Nitrogen 60 mg/dL (7-20) H Creatinine 1.6 mg/dL (0.6-1.0) H Estimated GFR (Cockcroft-Gault) 39.0 Glucose Level 111 mg/dL (70-99) H Calcium Level 10.8 mg/dL (8.5-10.1) H Laboratory Tests 02/01/20 06:41 Laboratory Tests 02/01/20 10:00 Assessment Assessment Problems Medical Problems: (1) Cough Status: Acute (2) Left-sided weakness Status: Acute Metabolic Encephalopathy. Brain MRI neg acute findings , old CVA History of epilepsy. Diabetes with peripheral neuropathy. h/o disseminated cryptococcus, on fluconazole. Gastroesophageal reflux disease. History of kidney transplant. Peripheral arterial disease. Chronic kidney disease, status post renal transplant. Coronary artery disease.s/p cabg COVID-19 neg, 01/23 Plan Plan of Care: Had PEG tube placed. LTAC or SNU. labs reviewed ok,pot 5.3 cr 1.4 PT/OT /Rehab consult labs reviewed, cryptococal antigen titre1;40 high in serum on procalamine for now Accelerated hypertension-systolic blood pressure 152/128. On IV hydralazine. Monitor closely. Plan Plan For more details regarding further plans, please refer to the orders. Justicifation of Admission Dx: Justifications for Admission: Justification of Admission Dx: Yes Sepsis: Altered Mental Status Altered Mental Status: Altered Mental Status (immune compramised,s/p kidney transplant.) Nutrition Consultation Dietary Evaluation: Recommendations by RD: Dietary education by RD, Increase Calorie Intake Comments: REC TFs via PEG per following: Glucerna 1.2@20 ml/hr, increase 10 ml q8 hrs as tolerated to goal rate 50 ml/hr w/100 ml water flushes q4 hrs or flushes per MD Continue w/pleasure feeds of dysphagia I/honey thick liquids per [employer] Expected Outcomes/Goals: New goal 01/26: PO intake to meet >75% est needs - not met, new goal established New goal 01/30: TF infusion + PO intake to meet >75% est needs Malnutrition Findings: Body Fat Depletion (Non Severe: Mild Depletion Weight Status: Appropriate BLAIRE APRTIDA MD Feb 01, 2020 10:54
--- NOTE | 2020-02-01 11:16 | PDOC ---
PROGRESS NOTES Subjective Subjective No new complaints. Objective Objective Vital Signs Date Time Temp Pulse Resp B/P (MAP) Pulse Ox O2 Delivery O2 Flow Rate FiO2 02/01/20 10:37 86 152/128 02/01/20 07:54 98.2 15 97 Room Air 98.2 01/31/20 14:50 2 Intake and Output 02/01/20 07:00 # Voids 6 Physical Exam Physical Exam She is lethargic this AM,supine in bed and she continues with cognitive,communication,visual perceptual,mobility and self care limitations. Assessment Assessment Problems Medical Problems: (1) Cough Status: Acute (2) Left-sided weakness Status: Acute Plan Plan of Care To LTAC unit or SNF when medically stable. Comment Review of Relevant I have reviewed the following items warner (where applicable) has been applied. Labs Laboratory Tests Test 01/30/20 11:21 01/30/20 16:47 01/30/20 19:14 01/31/20 04:45 Glucose (Fingerstick) 190 mg/dL (70-99) 261 mg/dL (70-99) 204 mg/dL (70-99) Sodium Level 137 mmol/L (136-145) Potassium Level 5.3 mmol/L (3.5-5.1) Chloride Level 105 mmol/L (98-107) Carbon Dioxide Level 19 mmol/L (21-32) Anion Gap 13 (6-14) Blood Urea Nitrogen 54 mg/dL (7-20) Creatinine 1.4 mg/dL (0.6-1.0) Estimated GFR (Cockcroft-Gault) 45.5 Glucose Level 169 mg/dL (70-99) Calcium Level 10.7 mg/dL (8.5-10.1) Test 01/31/20 07:42 01/31/20 10:35 01/31/20 17:21 01/31/20 20:53 Glucose (Fingerstick) 164 mg/dL (70-99) 177 mg/dL (70-99) 139 mg/dL (70-99) 79 mg/dL (70-99) Test 02/01/20 06:41 02/01/20 07:20 02/01/20 10:00 White Blood Count 8.7 x10^3/uL (4.0-11.0) Red Blood Count 4.88 x10^6/uL (3.50-5.40) Hemoglobin 12.7 g/dL (12.0-15.5) Hematocrit 39.5 % (36.0-47.0) Mean Corpuscular Volume 81 fL (79-100) Mean Corpuscular Hemoglobin 26 pg (25-35) Mean Corpuscular Hemoglobin Concent 32 g/dL (31-37) Red Cell Distribution Width 15.9 % (11.5-14.5) Platelet Count 291 x10^3/uL (140-400) Neutrophils (%) (Auto) 72 % (31-73) Lymphocytes (%) (Auto) 16 % (24-48) Monocytes (%) (Auto) 9 % (0-9) Eosinophils (%) (Auto) 2 % (0-3) Basophils (%) (Auto) 0 % (0-3) Neutrophils # (Auto) 6.3 x10^3/uL (1.8-7.7) Lymphocytes # (Auto) 1.4 x10^3/uL (1.0-4.8) Monocytes # (Auto) 0.8 x10^3/uL (0.0-1.1) Eosinophils # (Auto) 0.2 x10^3/uL (0.0-0.7) Basophils # (Auto) 0.0 x10^3/uL (0.0-0.2) Glucose (Fingerstick) 112 mg/dL (70-99) Sodium Level 138 mmol/L (136-145) Potassium Level 5.9 mmol/L (3.5-5.1) Chloride Level 107 mmol/L (98-107) Carbon Dioxide Level 21 mmol/L (21-32) Anion Gap 10 (6-14) Blood Urea Nitrogen 60 mg/dL (7-20) Creatinine 1.6 mg/dL (0.6-1.0) Estimated GFR (Cockcroft-Gault) 39.0 Glucose Level 111 mg/dL (70-99) Calcium Level 10.8 mg/dL (8.5-10.1) Laboratory Tests Test 01/31/20 17:21 01/31/20 20:53 02/01/20 06:41 02/01/20 07:20 Glucose (Fingerstick) 139 mg/dL (70-99) 79 mg/dL (70-99) 112 mg/dL (70-99) White Blood Count 8.7 x10^3/uL (4.0-11.0) Red Blood Count 4.88 x10^6/uL (3.50-5.40) Hemoglobin 12.7 g/dL (12.0-15.5) Hematocrit 39.5 % (36.0-47.0) Mean Corpuscular Volume 81 fL (79-100) Mean Corpuscular Hemoglobin 26 pg (25-35) Mean Corpuscular Hemoglobin Concent 32 g/dL (31-37) Red Cell Distribution Width 15.9 % (11.5-14.5) Platelet Count 291 x10^3/uL (140-400) Neutrophils (%) (Auto) 72 % (31-73) Lymphocytes (%) (Auto) 16 % (24-48) Monocytes (%) (Auto) 9 % (0-9) Eosinophils (%) (Auto) 2 % (0-3) Basophils (%) (Auto) 0 % (0-3) Neutrophils # (Auto) 6.3 x10^3/uL (1.8-7.7) Lymphocytes # (Auto) 1.4 x10^3/uL (1.0-4.8) Monocytes # (Auto) 0.8 x10^3/uL (0.0-1.1) Eosinophils # (Auto) 0.2 x10^3/uL (0.0-0.7) Basophils # (Auto) 0.0 x10^3/uL (0.0-0.2) Test 02/01/20 10:00 Sodium Level 138 mmol/L (136-145) Potassium Level 5.9 mmol/L (3.5-5.1) Chloride Level 107 mmol/L (98-107) Carbon Dioxide Level 21 mmol/L (21-32) Anion Gap 10 (6-14) Blood Urea Nitrogen 60 mg/dL (7-20) Creatinine 1.6 mg/dL (0.6-1.0) Estimated GFR (Cockcroft-Gault) 39.0 Glucose Level 111 mg/dL (70-99) Calcium Level 10.8 mg/dL (8.5-10.1) Medications Current Medications Clonidine HCl (Catapres) 0.2 mg 1X ONCE PO Last administered on 01/23/20at 17:38; Start 01/23/20 at 17:30; Stop 01/23/20 at 17:31; Status DC Ondansetron HCl (Zofran) 4 mg PRN Q8HRS PRN IV NAUSEA/VOMITING; Start 01/23/20 at 17:45; Stop 01/24/20 at 17:44; Status DC Morphine Sulfate (Morphine Sulfate) 2 mg PRN Q2HR PRN IV PAIN; Start 01/23/20 at 17:45; Stop 01/24/20 at 17:44; Status DC Dextrose/Sodium Chloride 1,000 ml @ 100 mls/hr 1X ONCE IV Last administered on 01/23/20at 19:24; Start 01/23/20 at 17:45; Stop 01/24/20 at 03:44; Status DC Pharmacy Consult (CViridianadiff Med Screen By Rx) 1 each 1X ONCE MC Last administered on 01/24/20at 08:26; Start 01/24/20 at 09:00; Stop 01/24/20 at 09:01; Status DC Labetalol HCl (Normodyne Iv Push) 20 mg PRN Q4HRS PRN IVP HYPERTENSION, 2nd choice Last administered on 01/26/20at 00:17; Start 01/24/20 at 04:15 Clonidine HCl (Catapres Tts-3) 1 patch WEEKLY TD ; Start 01/24/20 at 09:00; Stop 01/24/20 at 05:21; Status DC Piperacillin Sod/ Tazobactam Sod (Zosyn Per Pharmacy) 1 each PRN DAILY PRN MC SEE COMMENTS; Start 01/24/20 at 04:30; Stop 01/24/20 at 09:32; Status DC Piperacillin Sod/ Tazobactam Sod 3.375 gm/Sodium Chloride 50 ml @ 100 mls/hr Q6H IV Last administered on 01/24/20at 05:06; Start 01/24/20 at 05:00; Stop 01/24/20 at 09:30; Status DC Clonidine HCl (Catapres Tts-3) 1 patch WEEKLY TD Last administered on 01/31/20at 08:22; Start 01/24/20 at 16:00 Clonidine HCl (Catapres Tts-3) 1 patch 1X ONCE TD ; Start 01/24/20 at 05:30; Stop 01/24/20 at 05:31; Status DC Levetiracetam (Keppra) 500 mg BID PO ; Start 01/24/20 at 09:00; Status Cancel Acetaminophen (Tylenol) 650 mg PRN Q6HRS PRN PO TEMP > 100.4F; Start 01/24/20 at 08:30; Stop 01/26/20 at 12:00; Status DC Acetaminophen (Tylenol Supp) 650 mg PRN Q4HRS PRN MO TEMP > 100.4F; Start 01/24/20 at 08:30 Aspirin (Ecotrin) 325 mg DAILYWBKFT PO Last administered on 02/01/20at 10:36; Start 01/25/20 at 08:00 Aspirin (Aspirin Rectal Supp) 300 mg PRN DAILY PRN MO IF UNABLE TO TAKE PO; Start 01/24/20 at 08:30 Lorazepam (Ativan Inj) 2 mg PRN Q4HRS PRN IVP ANXIETY / AGITATION Last administered on 01/24/20at 10:14; Start 01/24/20 at 10:00; Stop 01/24/20 at 16:35; Status DC Acetaminophen (Tylenol) 1,000 mg PRN Q8HRS PRN PO MILD PAIN OR FEVER; Start 01/24/20 at 10:15 Aspirin (Ecotrin) 81 mg DAILY PO ; Start 01/25/20 at 09:00; Status UNV Vitamin B Complex/ Vitamin C (Vicki-Stacey) 1 tab DAILY PO Last administered on 02/01/20at 10:36; Start 01/25/20 at 09:00 Hydralazine HCl (Apresoline) 25 mg BID PO Last administered on 02/01/20at 10:35; Start 01/24/20 at 21:00 Insulin Human Lispro (HumaLOG) 2 units DAILYWLUN SQ Last administered on 01/30/20at 11:43; Start 01/24/20 at 12:00 Insulin Human Lispro (HumaLOG) 4 units DAILYWBKFT SQ Last administered on 01/31/20at 11:00; Start 01/25/20 at 08:00 Insulin Human Lispro (HumaLOG) 8 units DAILYWSUP SQ Last administered on at 18:57; Start 01/24/20 at 17:00 Lisinopril (Prinivil) 20 mg DAILY PO Last administered on 02/01/20 10:37; Start 01/24/20 at 12:00 Prednisone (Prednisone) 2 mg DAILY PO Last administered on 01/26/20 10:15; Start 01/24/20 at 12:00; Stop 01/26/20 at 12:24; Status DC Quetiapine Fumarate (SEROquel) 25 mg BID PO Last administered on 01/26/20 21:14; Start 01/24/20 at 12:00; Stop 01/27/20 at 09:52; Status DC Tacrolimus (Prograf) 0.5 mg BID PO Last administered on 02/01/20 10:36; Start 01/24/20 at 12:00 Trazodone HCl (Desyrel) 50 mg QHS PO Last administered on 01/26/20 21:14; Start 01/24/20 at 21:00; Stop 01/27/20 at 09:52; Status DC Fluconazole (Diflucan) 200 mg DAILY PO Last administered on 02/01/20 10:36; Start 01/24/20 at 11:00 Insulin Glargine (Lantus Syringe) 18 unit QHS SQ ; Start 01/24/20 at 21:00; Stop 01/24/20 at 20:59; Status DC Olanzapine (ZyPREXA) 10 mg QHS PO Last administered on 01/26/20at 21:14; Start 01/24/20 at 21:00; Stop 01/27/20 at 09:52; Status DC Enoxaparin Sodium (Lovenox 40mg Syringe) 40 mg Q24H SQ Last administered on 01/26/20at 10:12; Start 01/24/20 at 11:00; Stop 01/26/20 at 12:24; Status DC Amino Acids/ Glycerin/ Electrolytes 1,000 ml @ 75 mls/hr [id number] IV Last administered on 01/29/20 15:50; Start 01/24/20 at 13:45; Stop 01/30/20 at 10:00; Status DC Levetiracetam 500 mg/Dextrose 105 ml @ 420 mls/hr Q12HR IV Last administered on 01/26/20 21:14; Start 01/24/20 at 13:45; Stop 01/27/20 at 08:47; Status DC Non-Formulary Medication 0.5 ea BID NG Last administered on 01/24/20at 21:12; Start 01/24/20 at 15:00; Stop 01/27/20 at 04:41; Status DC Lorazepam (Ativan Inj) 0.5 mg PRN Q4HRS PRN IVP ANXIETY / AGITATION Last administered on 01/25/20at 06:34; Start 01/24/20 at 16:45 Insulin Glargine (Lantus Syringe) 18 unit QHS SQ Last administered on 01/30/20at 21:15; Start 01/24/20 at 21:00 Dextrose (Dextrose 50%-Water Syringe) 12.5 gm PRN Q15MIN PRN IV SEE COMMENTS; Start 01/24/20 at 21:45 Enalaprilat (Vasotec Inj) 1.25 mg PRN Q6HRS PRN IVP HYPERTENSION, 1st choice; Start 01/25/20 at 12:00 Prednisone (Prednisone) 5 mg DAILY PO Last administered on 02/01/20at 10:36; Start 01/27/20 at 09:00 Levetiracetam (Keppra) 500 mg BID PO Last administered on 02/01/20at 10:36; Start 01/27/20 at 09:00 Tacrolimus (Prograf Oral Susp) 0.5 mg STK-MED ONCE .ROUTE ; Start 01/24/20 at 21:00; Stop 01/27/20 at 14:30; Status DC Tacrolimus (Prograf Oral Susp) 0.5 mg STK-MED ONCE .ROUTE ; Start 01/24/20 at 21:00; Stop 01/27/20 at 14:30; Status DC Cefazolin Sodium (Ancef) 1 gm 1X ONCE IVP ; Start 01/31/20 at 12:00; Stop 01/31/20 at 12:01; Status DC Ringer's Solution 1,000 ml @ 50 mls/hr Q20H IV ; Start 01/31/20 at 07:00; Stop 01/31/20 at 18:59; Status DC Ringer's Solution 1,000 ml @ 75 mls/hr 1X ONCE IV ; Start 01/31/20 at 08:15; Stop 01/31/20 at 21:34; Status DC Hydralazine HCl (Apresoline Inj) 10 mg PRN Q4HRS PRN IVP ELEVATED BP, SEE COMMENTS Last administered on 01/31/20at 10:55; Start 01/31/20 at 09:45 Propofol (Diprivan) 200 mg STK-MED ONCE IV ; Start 01/31/20 at 13:08; Stop 01/31/20 at 13:09; Status DC Active Scripts Active Diflucan (Fluconazole) 100 Mg Tablet 200 Mg PO DAILY Reported Zyprexa (Olanzapine) 10 Mg Tablet 1 Tab PO QHS Trazodone Hcl 50 Mg Tablet 1 Tab PO QHS Seroquel (Quetiapine Fumarate) 25 Mg Tablet 25 Mg PO BID Humalog (Insulin Lispro) 100 Unit/1 Ml Vial 2 Unit SQ DAILYBFRLUN Lisinopril 20 Mg Tablet 1 Tab PO DAILY Acetaminophen 500 Mg Tablet 2 Tab PO PRN Q8HRS PRN 15 Days Prednisone 1 Mg Tablet 2 Mg PO DAILY Humalog (Insulin Lispro) 100 Unit/1 Ml Vial 8 Unit SQ DAILYBFRSUP Humalog (Insulin Lispro) 100 Unit/1 Ml Vial 4 Unit SQ DAILYWBKFT Hydralazine Hcl 25 Mg Tablet 1 Tab PO BID Aspir-Low (Aspirin) 81 Mg Tablet. 1 Tab PO DAILY Prograf (Tacrolimus) 1 Mg Capsule 0.5 Mg PO BID Levemir (Insulin Detemir) 100 Unit/1 Ml Vial 18 Unit SQ QHS Hold for FSBS below 90 and call Nephro-Stacey Tablet (Folic Acid/Vitamin B Comp W-C) 0.8 Mg Tablet 1 Tab PO DAILY Levetiracetam 500 Mg Tablet 500 Mg PO BID Vitals/I & O Vital Sign - Last 24 Hours 01/31/20 01/31/20 01/31/20 01/31/20 12:25 12:51 14:50 15:00 Temp 97.5 97.4 97.5 97.5 97.4 97.5 Pulse 79 75 75 Resp 18 20 18 B/P (MAP) 111/54 113/37 (62) Pulse Ox 99 99 97 O2 Delivery Room Air Nasal Cannula Room Air O2 Flow Rate 2 01/31/20 01/31/20 01/31/20 01/31/20 15:05 15:20 19:47 20:00 Temp 97.3 97.3 Pulse 79 80 81 Resp 20 18 20 B/P (MAP) 112/52 113/78 156/60 (92) Pulse Ox 98 97 100 O2 Delivery Room Air Room Air Room Air Room Air 01/31/20 01/31/20 02/01/20 02/01/20 20:25 23:54 03:41 07:54 Temp 97.5 98.2 97.5 98.2 Pulse 81 85 84 86 Resp 20 20 15 B/P (MAP) 156/60 128/39 (68) 110/42 (64) 152/128 (136) Pulse Ox 99 97 O2 Delivery Room Air Room Air Room Air 02/01/20 02/01/20 10:35 10:37 Pulse 86 86 B/P (MAP) 152/128 152/128 Nutrition Consultation Dietary Evaluation: Recommendations by RD: Dietary education by RD, Increase Calorie Intake Comments: REC TFs via PEG per following: Glucerna 1.2@20 ml/hr, increase 10 ml q8 hrs as tolerated to goal rate 50 ml/hr w/100 ml water flushes q4 hrs or flushes per MD Continue w/pleasure feeds of dysphagia I/honey thick liquids per ACCOUNTS PAYABLE ANALYST Expected Outcomes/Goals: New goal 01/26: PO intake to meet >75% est needs - not met, new goal established New goal 01/30: TF infusion + PO intake to meet >75% est needs Malnutrition Findings: Body Fat Depletion (Non Severe: Mild Depletion Weight Status: Appropriate RADHA HUITRON MD Feb 01, 2020 11:16
[2020-02-01 11:31] VITALS: BP 98/26
--- NOTE | 2020-02-01 12:45 | PDOC ---
Renal-Progress Notes Subjective Notes Notes CONFUSED History of Present Illness Hx of present illness STABLE Vitals Vitals Vital Signs Date Time Temp Pulse Resp B/P (MAP) Pulse Ox O2 Delivery O2 Flow Rate FiO2 02/01/20 11:31 97.1 90 18 98/26 (50) 97 Room Air 97.1 02/01/20 08:00 2.0 Weight Weight [ ] I.O. Intake and Output Intake and Output 02/01/20 07:00 # Voids 6 Labs Labs Laboratory Tests Test 01/31/20 17:21 01/31/20 20:53 02/01/20 06:41 02/01/20 07:20 Glucose (Fingerstick) 139 mg/dL (70-99) 79 mg/dL (70-99) 112 mg/dL (70-99) White Blood Count 8.7 x10^3/uL (4.0-11.0) Red Blood Count 4.88 x10^6/uL (3.50-5.40) Hemoglobin 12.7 g/dL (12.0-15.5) Hematocrit 39.5 % (36.0-47.0) Mean Corpuscular Volume 81 fL (79-100) Mean Corpuscular Hemoglobin 26 pg (25-35) Mean Corpuscular Hemoglobin Concent 32 g/dL (31-37) Red Cell Distribution Width 15.9 % (11.5-14.5) Platelet Count 291 x10^3/uL (140-400) Neutrophils (%) (Auto) 72 % (31-73) Lymphocytes (%) (Auto) 16 % (24-48) Monocytes (%) (Auto) 9 % (0-9) Eosinophils (%) (Auto) 2 % (0-3) Basophils (%) (Auto) 0 % (0-3) Neutrophils # (Auto) 6.3 x10^3/uL (1.8-7.7) Lymphocytes # (Auto) 1.4 x10^3/uL (1.0-4.8) Monocytes # (Auto) 0.8 x10^3/uL (0.0-1.1) Eosinophils # (Auto) 0.2 x10^3/uL (0.0-0.7) Basophils # (Auto) 0.0 x10^3/uL (0.0-0.2) Test 02/01/20 10:00 02/01/20 10:56 Sodium Level 138 mmol/L (136-145) Potassium Level 5.9 mmol/L (3.5-5.1) Chloride Level 107 mmol/L (98-107) Carbon Dioxide Level 21 mmol/L (21-32) Anion Gap 10 (6-14) Blood Urea Nitrogen 60 mg/dL (7-20) Creatinine 1.6 mg/dL (0.6-1.0) Estimated GFR (Cockcroft-Gault) 39.0 Glucose Level 111 mg/dL (70-99) Calcium Level 10.8 mg/dL (8.5-10.1) Glucose (Fingerstick) 108 mg/dL (70-99) Review of Systems Constitutional: yes: other (CONFUSED) Physical Exam General Appearance: no apparent distress Skin: warm Respiratory: bilateral CTA Heart: S1S2 Abdomen: soft, bowel sounds present Genitourinary: bladder flat Extremities: pulses present Neurology: confused Assessment Assessment IMP HX OF RENAL TX CAN - CKD - CR STABLE AT 1.4 HX OF CRYTOCOCCUS HX OF EPILEPSY ENCEPHALOPATHY S/P PEG PLAN STABLE FROM RENAL TX CONT SUPPORTIVE CARE CONT PREDNISONE AND PROGRAF WILL FOLLOW MO RODRIGUEZ MD Feb 01, 2020 12:45
[2020-02-01 15:21] VITALS: BP 133/36
[2020-02-01 19:00] VITALS: BP 93/60
[2020-02-01 23:00] VITALS: BP 92/59
[2020-02-01] MEDS: INSULIN GLARGINE SYRINGE. SQ SCH (23:34)
[2020-02-02 03:00] VITALS: BP 97/58
[2020-02-02 07:46] VITALS: BP 103/40
[2020-02-02] MEDS: LISINOPRIL 20 MG TABLET PO SCH (09:00)
[2020-02-02] MEDS: predniSONE 5 MG TABLET PO SCH (09:03)
[2020-02-02] MEDS: FLUCONAZOLE 100 MG TABLET. PO SCH (09:03)
[2020-02-02] MEDS: ASPIRIN ENTERIC COATED 325 MG TABLET.DR. PO SCH (09:03)
[2020-02-02] MEDS: FOLIC/VIT B COMP W-C (RENAL) TABLET. PO SCH (09:03)
[2020-02-02] MEDS: levETIRAcetam 500 MG TABLET PO SCH ×2 (09:03→21:52)
[2020-02-02] MEDS: hydrALAZINE 25 MG TABLET PO SCH ×2 (09:03→21:53)
[2020-02-02] MEDS: TACROLIMUS 0.5 MG CAPSULE PO SCH ×2 (09:03→21:52)
[2020-02-02] MEDS: INSULIN LISPRO 300 UNITS/3 ML VIAL. SQ SCH ×3 (09:18→17:00)
--- NOTE | 2020-02-02 10:05 | PDOC ---
IM PROGRESS NOTES- Subjective Subjective Patient is nonverbal unable to do systems review. Objective Vitals/I&O Vital Signs Date Time Temp Pulse Resp B/P (MAP) Pulse Ox O2 Delivery O2 Flow Rate FiO2 02/02/20 09:03 91 103/40 02/02/20 08:00 Room Air 02/02/20 07:46 100.0 18 99 100.0 02/01/20 20:00 2.0 I & O 02/01/20 02/01/20 02/02/20 15:00 23:00 07:00 Output Total 0 ml Balance 0 ml Physical Exam Physical Exam General appearance - alert, nonverbal and in no distress Mental Status - alert, confused Head - normal Chest -decreased breath sounds at bases Heart - S1 and S2 normal Abdomen - soft, nontender Neurological - alert Extremities - no pedal edema Skin - warm and dry Labs Laboratory Tests Test 02/01/20 10:56 02/01/20 16:15 02/01/20 20:25 02/02/20 07:20 Glucose (Fingerstick) 108 mg/dL (70-99) H 187 mg/dL (70-99) H 139 mg/dL (70-99) H 168 mg/dL (70-99) H Assessment Assessment Problems Medical Problems: (1) Cough Status: Acute (2) Left-sided weakness Status: Acute Metabolic Encephalopathy. Brain MRI neg acute findings , old CVA History of epilepsy. Diabetes with peripheral neuropathy. h/o disseminated cryptococcus, on fluconazole. Gastroesophageal reflux disease. History of kidney transplant. Peripheral arterial disease. Chronic kidney disease, status post renal transplant. Coronary artery disease.s/p cabg COVID-19 neg, 01/23 Plan Plan of Care: PEG tube could not be placed by Dr. Morrow. I will order surgical consult with Dr. Nava for surgical placement of the G-tube. LTAC or SNU. K 5.9. Recheck labs in a.m. PT/OT /Rehab consult labs reviewed, cryptococal antigen titre1;40 high in serum on procalamine for now Accelerated hypertension-systolic blood pressure 152/128 yesterday.. On IV hydralazine. Blood pressure is low today at 103/40 Recheck labs in a.m. Status post renal transplant on prednisone and Prograf Plan Plan For more details regarding further plans, please refer to the orders. Justicifation of Admission Dx: Justifications for Admission: Justification of Admission Dx: Yes Sepsis: Altered Mental Status Altered Mental Status: Altered Mental Status (immune compramised,s/p kidney transplant.) Nutrition Consultation Dietary Evaluation: Recommendations by RD: Dietary education by RD, Increase Calorie Intake Comments: REC TFs via PEG per following: Glucerna 1.2@20 ml/hr, increase 10 ml q8 hrs as tolerated to goal rate 50 ml/hr w/100 ml water flushes q4 hrs or flushes per MD Continue w/pleasure feeds of dysphagia I/honey thick liquids per RETAIL SEASONAL SPECIALIST Expected Outcomes/Goals: New goal 01/26: PO intake to meet >75% est needs - not met, new goal established New goal 01/30: TF infusion + PO intake to meet >75% est needs Malnutrition Findings: Body Fat Depletion (Non Severe: Mild Depletion Weight Status: Appropriate BLAIRE PARTIDA MD Feb 02, 2020 10:05
[2020-02-02 11:08] VITALS: BP 87/35
[2020-02-02] MEDS: IV NORMAL SALINE 1000ML BAG 1,000 ML IV SCH ×2 (11:39→21:54)
--- NOTE | 2020-02-02 11:50 | PDOC ---
Renal-Progress Notes Subjective Notes Notes NO NEW COMPLAINTS History of Present Illness Hx of present illness NO CHANGES Vitals Vitals Vital Signs Date Time Temp Pulse Resp B/P (MAP) Pulse Ox O2 Delivery O2 Flow Rate FiO2 02/02/20 11:08 99.8 92 16 87/35 (52) 100 Room Air 99.8 02/01/20 20:00 2.0 Weight Weight [ ] I.O. Intake and Output Intake and Output 02/02/20 07:00 Output Total 0 ml Balance 0 ml Output Urine Total 0 ml # Voids 1 Labs Labs Laboratory Tests Test 02/01/20 16:15 02/01/20 20:25 02/02/20 07:20 02/02/20 11:24 Glucose (Fingerstick) 187 mg/dL (70-99) 139 mg/dL (70-99) 168 mg/dL (70-99) 165 mg/dL (70-99) Review of Systems Constitutional: yes: other (CONFUSED) Physical Exam General Appearance: no apparent distress Skin: warm Respiratory: bilateral CTA Heart: S1S2 Abdomen: soft, bowel sounds present Genitourinary: bladder flat Extremities: pulses present Neurology: confused Assessment Assessment IMP HYPERKALEMIA HYPOTENSION HX OF RENAL TX CAN - CKD - CR STABLE AT 1.4 HX OF CRYTOCOCCUS HX OF EPILEPSY ENCEPHALOPATHY S/P PEG PLAN STOP HER QUOC-I INCREASE HYDRATION CONT SUPPORTIVE CARE CONT PREDNISONE AND PROGRAF WILL FOLLOW MO RODRIGUEZ MD Feb 02, 2020 11:50
[2020-02-02 14:40] VITALS: BP 121/28
[2020-02-02 19:00] VITALS: BP 156/58
--- NOTE | 2020-02-02 19:43 | PDOC2 ---
CONSULT Date of Consult Date of Consult DATE: 02/02/20 TIME: 19:40 History of Present Illness Reason for Visit: 64 year old female admitted following stroke; GI consulted for PEG placement due to poor PO intake. The PEG was not successful and Surgery was consulted for a Gtube placement. Past Medical History Cardiovascular: CAD, CHF, HTN, CO, Hyperlipidemia, Other (Peripheral vascular disease) Pulmonary: COPD, Pneumonia CENTRAL NERVOUS SYSTEM: CVA, Periperal neuropathy, Seizure GI: GERD, Hemorrhoids, Other ( colonic polyps, Lottie near) Heme/Onc: Anemia NOS Psych: Anxiety, Depression, Schizophrenia Infectious disease: Other Renal/: Chronic renal insuff, UTI, Urinary Incontinence Endocrine: Diabetes Past Surgical History Past Surgical History: Appendectomy, CABG, Hysterectomy, Other ( left forearm AV fistula, renal transplant, coronary stent) Family History Family History: Diabetes, Heart Disease Social History No ALCOHOL: none Drugs: None Lives: Long Term Domestic Violence: Neg Current Problem List Problem List Problems Medical Problems: (1) Cough Status: Acute (2) Left-sided weakness Status: Acute Current Medications Current Medications Current Medications Clonidine HCl (Catapres) 0.2 mg 1X ONCE PO Last administered on 01/23/20at 17:38; Start 01/23/20 at 17:30; Stop 01/23/20 at 17:31; Status DC Ondansetron HCl (Zofran) 4 mg PRN Q8HRS PRN IV NAUSEA/VOMITING; Start 01/23/20 at 17:45; Stop 01/24/20 at 17:44; Status DC Morphine Sulfate (Morphine Sulfate) 2 mg PRN Q2HR PRN IV PAIN; Start 01/23/20 at 17:45; Stop 01/24/20 at 17:44; Status DC Dextrose/Sodium Chloride 1,000 ml @ 100 mls/hr 1X ONCE IV Last administered on 01/23/20at 19:24; Start 01/23/20 at 17:45; Stop 01/24/20 at 03:44; Status DC Pharmacy Consult (C.diff Med Screen By Rx) 1 each 1X ONCE MC Last administered on 01/24/20at 08:26; Start 01/24/20 at 09:00; Stop 01/24/20 at 09:01; Status DC Labetalol HCl (Normodyne Iv Push) 20 mg PRN Q4HRS PRN IVP HYPERTENSION, 2nd choice Last administered on 01/26/20at 00:17; Start 01/24/20 at 04:15 Clonidine HCl (Catapres Tts-3) 1 patch WEEKLY TD ; Start 01/24/20 at 09:00; Stop 01/24/20 at 05:21; Status DC Piperacillin Sod/ Tazobactam Sod (Zosyn Per Pharmacy) 1 each PRN DAILY PRN [facility] SEE COMMENTS; Start 01/24/20 at 04:30; Stop 01/24/20 at 09:32; Status DC Piperacillin Sod/ Tazobactam Sod 3.375 gm/Sodium Chloride 50 ml @ 100 mls/hr Q6H IV Last administered on 01/24/20at 05:06; Start 01/24/20 at 05:00; Stop 01/24/20 at 09:30; Status DC Clonidine HCl (Catapres Tts-3) 1 patch WEEKLY TD Last administered on 01/31/20at 08:22; Start 01/24/20 at 16:00 Clonidine HCl (Catapres Tts-3) 1 patch 1X ONCE TD ; Start 01/24/20 at 05:30; Stop 01/24/20 at 05:31; Status DC Levetiracetam (Keppra) 500 mg BID PO ; Start 01/24/20 at 09:00; Status Cancel Acetaminophen (Tylenol) 650 mg PRN Q6HRS PRN PO TEMP > 100.4F; Start 01/24/20 at 08:30; Stop 01/26/20 at 12:00; Status DC Acetaminophen (Tylenol Supp) 650 mg PRN Q4HRS PRN [place] TEMP > 100.4F; Start 01/24/20 at 08:30 Aspirin (Ecotrin) 325 mg DAILYWBKFT PO Last administered on 02/02/20at 09:03; Start 01/25/20 at 08:00 Aspirin (Aspirin Rectal Supp) 300 mg PRN DAILY PRN [place] IF UNABLE TO TAKE PO; Start 01/24/20 at 08:30 Lorazepam (Ativan Inj) 2 mg PRN Q4HRS PRN IVP ANXIETY / AGITATION Last administered on 01/24/20at 10:14; Start 01/24/20 at 10:00; Stop 01/24/20 at 16:35; Status DC Acetaminophen (Tylenol) 1,000 mg PRN Q8HRS PRN PO MILD PAIN OR FEVER; Start 01/24/20 at 10:15 Aspirin (Ecotrin) 81 mg DAILY PO ; Start 01/25/20 at 09:00; Status UNV Vitamin B Complex/ Vitamin C (Vicki-Stacey) 1 tab DAILY PO Last administered on 02/02/20 09:03; Start 01/25/20 at 09:00 Hydralazine HCl (Apresoline) 25 mg BID PO Last administered on 02/02/20 09:03; Start 01/24/20 at 21:00 Insulin Human Lispro (HumaLOG) 2 units DAILYWLUN SQ Last administered on 02/02/20 11:45; Start 01/24/20 at 12:00 Insulin Human Lispro (HumaLOG) 4 units DAILYWBKFT SQ Last administered on 02/02/20 09:18; Start 01/25/20 at 08:00 Insulin Human Lispro (HumaLOG) 8 units DAILYWSUP SQ Last administered on 02/02/20at 17:00; Start 01/24/20 at 17:00 Lisinopril (Prinivil) 20 mg DAILY PO Last administered on 02/01/20at 10:37; Start 01/24/20 at 12:00; Stop 02/02/20 at 11:51; Status DC Prednisone (Prednisone) 2 mg DAILY PO Last administered on 01/26/20 10:15; Start 01/24/20 at 12:00; Stop 01/26/20 at 12:24; Status DC Quetiapine Fumarate (SEROquel) 25 mg BID PO Last administered on 01/26/20at 21:14; Start 01/24/20 at 12:00; Stop 01/27/20 at 09:52; Status DC Tacrolimus (Prograf) 0.5 mg BID PO Last administered on 02/02/20 09:03; Start 01/24/20 at 12:00 Trazodone HCl (Desyrel) 50 mg QHS PO Last administered on 01/26/20at 21:14; Start 01/24/20 at 21:00; Stop 01/27/20 at 09:52; Status DC Fluconazole (Diflucan) 200 mg DAILY PO Last administered on 02/02/20 09:03; S tart 01/24/20 at 11:00 Insulin Glargine (Lantus Syringe) 18 unit QHS SQ ; Start 01/24/20 at 21:00; Stop 01/24/20 at 20:59; Status DC Olanzapine (ZyPREXA) 10 mg QHS PO Last administered on 01/26/20at 21:14; Start 01/24/20 at 21:00; Stop 01/27/20 at 09:52; Status DC Enoxaparin Sodium (Lovenox 40mg Syringe) 40 mg Q24H SQ Last administered on 01/26/20at 10:12; Start 01/24/20 at 11:00; Stop 01/26/20 at 12:24; Status DC Amino Acids/ Glycerin/ Electrolytes 1,000 ml @ 75 mls/hr [id number] IV Last administered on 01/29/20at 15:50; Start 01/24/20 at 13:45; Stop 01/30/20 at 10:00; Status DC Levetiracetam 500 mg/Dextrose 105 ml @ 420 mls/hr Q12HR IV Last administered on 01/26/20at 21:14; Start 01/24/20 at 13:45; Stop 01/27/20 at 08:47; Status DC Non-Formulary Medication 0.5 ea BID NG Last administered on 01/24/20at 21:12; Start 01/24/20 at 15:00; Stop 01/27/20 at 04:41; Status DC Lorazepam (Ativan Inj) 0.5 mg PRN Q4HRS PRN IVP ANXIETY / AGITATION Last administered on 01/25/20at 06:34; Start 01/24/20 at 16:45 Insulin Glargine (Lantus Syringe) 18 unit QHS SQ Last administered on 02/01/20at 23:34; Start 01/24/20 at 21:00 Dextrose (Dextrose 50%-Water Syringe) 12.5 gm PRN Q15MIN PRN IV SEE COMMENTS; Start 01/24/20 at 21:45 Enalaprilat (Vasotec Inj) 1.25 mg PRN Q6HRS PRN IVP HYPERTENSION, 1st choice; Start 01/25/20 at 12:00 Prednisone (Prednisone) 5 mg DAILY PO Last administered on 02/02/20at 09:03; Sta rt 6/1/20 at 09:00 Levetiracetam (Keppra) 500 mg BID PO Last administered on 02/02/20at 09:03; Start 01/27/20 at 09:00 Tacrolimus (Prograf Oral Susp) 0.5 mg STK-MED ONCE .ROUTE ; Start 01/24/20 at 21:00; Stop 01/27/20 at 14:30; Status DC Tacrolimus (Prograf Oral Susp) 0.5 mg STK-MED ONCE .ROUTE ; Start 01/24/20 at 21:00; Stop 01/27/20 at 14:30; Status DC Cefazolin Sodium (Ancef) 1 gm 1X ONCE IVP ; Start 01/31/20 at 12:00; Stop 01/31/20 at 12:01; Status DC Ringer's Solution 1,000 ml @ 50 mls/hr Q20H IV ; Start 01/31/20 at 07:00; Stop 01/31/20 at 18:59; Status DC Ringer's Solution 1,000 ml @ 75 mls/hr 1X ONCE IV ; Start 01/31/20 at 08:15; Stop 01/31/20 at 21:34; Status DC Hydralazine HCl (Apresoline Inj) 10 mg PRN Q4HRS PRN IVP ELEVATED BP, SEE COMMENTS Last administered on 01/31/20at 10:55; Start 01/31/20 at 09:45 Propofol (Diprivan) 200 mg STK-MED ONCE IV ; Start 01/31/20 at 13:08; Stop 01/31/20 at 13:09; Status DC Sodium Chloride 1,000 ml @ 100 mls/hr Q10H IV Last administered on 02/02/20at 11:39; Start 02/02/20 at 11:00 Active Scripts Active Diflucan (Fluconazole) 100 Mg Tablet 200 Mg PO DAILY Reported Zyprexa (Olanzapine) 10 Mg Tablet 1 Tab PO QHS Trazodone Hcl 50 Mg Tablet 1 Tab PO QHS Seroquel (Quetiapine Fumarate) 25 Mg Tablet 25 Mg PO BID Humalog (Insulin Lispro) 100 Unit/1 Ml Vial 2 Unit SQ DAILYBFRLUN Lisinopril 20 Mg Tablet 1 Tab PO DAILY Acetaminophen 500 Mg Tablet 2 Tab PO PRN Q8HRS PRN 15 Days Prednisone 1 Mg Tablet 2 Mg PO DAILY Humalog (Insulin Lispro) 100 Unit/1 Ml Vial 8 Unit SQ DAILYBFRSUP Humalog (Insulin Lispro) 100 Unit/1 Ml Vial 4 Unit SQ DAILYWBKFT Hydralazine Hcl 25 Mg Tablet 1 Tab PO BID Aspir-Low (Aspirin) 81 Mg Tablet. 1 Tab PO DAILY Prograf (Tacrolimus) 1 Mg Capsule 0.5 Mg PO BID Levemir (Insulin Detemir) 100 Unit/1 Ml Vial 18 Unit SQ QHS Hold for FSBS below 90 and call Nephro-Stacey Tablet (Folic Acid/Vitamin B Comp W-C) 0.8 Mg Tablet 1 Tab PO DAILY Levetiracetam 500 Mg Tablet 500 Mg PO BID Allergies Allergies: Coded Allergies: adhesive tape (Verified Allergy, Intermediate, Hives, 01/31/20) blistered skin this admit No Known Medication Allergies (Verified Allergy, Unknown, 01/31/20) ROS Review of System Pt nonverbal Physical Exam HEENT: Atraumatic Lungs: Clear to auscultation Heart: Regular rate Abdomen: Soft Skin: No rashes, No breakdown Vitals VITALS Vital Signs Date Time Temp Pulse Resp B/P (MAP) Pulse Ox O2 Delivery O2 Flow Rate FiO2 02/02/20 14:40 98.5 72 17 121/28 (59) 99 Room Air 98.5 02/01/20 20:00 2.0 Labs Labs Laboratory Tests Test 01/31/20 20:53 02/01/20 06:41 02/01/20 07:20 02/01/20 10:00 Glucose (Fingerstick) 79 mg/dL (70-99) 112 mg/dL (70-99) White Blood Count 8.7 x10^3/uL (4.0-11.0) Red Blood Count 4.88 x10^6/uL (3.50-5.40) Hemoglobin 12.7 g/dL (12.0-15.5) Hematocrit 39.5 % (36.0-47.0) Mean Corpuscular Volume 81 fL (79-100) Mean Corpuscular Hemoglobin 26 pg (25-35) Mean Corpuscular Hemoglobin Concent 32 g/dL (31-37) Red Cell Distribution Width 15.9 % (11.5-14.5) Platelet Count 291 x10^3/uL (140-400) Neutrophils (%) (Auto) 72 % (31-73) Lymphocytes (%) (Auto) 16 % (24-48) Monocytes (%) (Auto) 9 % (0-9) Eosinophils (%) (Auto) 2 % (0-3) Basophils (%) (Auto) 0 % (0-3) Neutrophils # (Auto) 6.3 x10^3/uL (1.8-7.7) Lymphocytes # (Auto) 1.4 x10^3/uL (1.0-4.8) Monocytes # (Auto) 0.8 x10^3/uL (0.0-1.1) Eosinophils # (Auto) 0.2 x10^3/uL (0.0-0.7) Basophils # (Auto) 0.0 x10^3/uL (0.0-0.2) Sodium Level 138 mmol/L (136-145) Potassium Level 5.9 mmol/L (3.5-5.1) Chloride Level 107 mmol/L (98-107) Carbon Dioxide Level 21 mmol/L (21-32) Anion Gap 10 (6-14) Blood Urea Nitrogen 60 mg/dL (7-20) Creatinine 1.6 mg/dL (0.6-1.0) Estimated GFR (Cockcroft-Gault) 39.0 Glucose Level 111 mg/dL (70-99) Calcium Level 10.8 mg/dL (8.5-10.1) Test 02/01/20 10:56 02/01/20 16:15 02/01/20 20:25 02/02/20 07:20 Glucose (Fingerstick) 108 mg/dL (70-99) 187 mg/dL (70-99) 139 mg/dL (70-99) 168 mg/dL (70-99) Test 02/02/20 11:24 02/02/20 16:18 Glucose (Fingerstick) 165 mg/dL (70-99) 219 mg/dL (70-99) Laboratory Tests Test 02/01/20 20:25 02/02/20 07:20 02/02/20 11:24 02/02/20 16:18 Glucose (Fingerstick) 139 mg/dL (70-99) 168 mg/dL (70-99) 165 mg/dL (70-99) 219 mg/dL (70-99) Assessment/Plan Assessment/Plan 64 year old female, S/P CVA; pt is taking PO with honey thickened liquids. PEG tube requested by unsuccessful. Will discuss details regarding surgical yossi cement of a GTube with family, Dr Moran. MADI CHAVEZ MD Feb 02, 2020 19:43
[2020-02-02] MEDS: INSULIN GLARGINE SYRINGE. SQ SCH (21:55)
[2020-02-02 23:00] VITALS: BP 143/50
[2020-02-03 03:00] VITALS: BP 148/36
[2020-02-03 07:40] VITALS: BP 126/31
[2020-02-03 07:53] LABS: BASO % 0 % (0-3); EOS % 0 % (0-3); HEMATOCRIT 35.1 % (36.0-47.0); HEMOGLOBIN 11.2 g/dL (12.0-15.5); LYMPH # 0.9 x10^3/uL (1.0-4.8); LYMPH % 4 % (24-48); MEAN CORPUSCULAR HEMOGLOBIN 26 pg (25-35); MEAN CORPUSCULAR HGB CONC 32 g/dL (31-37); MEAN CORPUSCULAR VOLUME 80 fL (79-100); MONO # 1.9 x10^3/uL (0.0-1.1); MONO % 9 % (0-9); NEUT # 18.1 x10^3/uL (1.8-7.7); NEUT % 86 % (31-73); PLATELET COUNT 259 x10^3/uL (140-400); RED BLOOD COUNT 4.37 x10^6/uL (3.50-5.40); WHITE BLOOD COUNT 20.9 x10^3/uL (4.0-11.0)
[2020-02-03] MEDS: INSULIN LISPRO 300 UNITS/3 ML VIAL. SQ SCH ×3 (08:00→18:17)
[2020-02-03 08:26] LABS: ALBUMIN 2.3 g/dL (3.4-5.0); ALBUMIN/GLOBULIN RATIO 0.5 (1.0-1.7); CALCIUM 10.4 mg/dL (8.5-10.1); CREATININE 2.3 mg/dL (0.6-1.0); GFR 25.7; TOTAL BILIRUBIN 0.2 mg/dL (0.2-1.0); TOTAL PROTEIN 6.7 g/dL (6.4-8.2)
[2020-02-03 08:44] LABS: POTASSIUM 6.2 mmol/L (3.5-5.1)
--- NOTE | 2020-02-03 09:14 | PDOC ---
PROGRESS NOTES Subjective Subjective No new complaints. Objective Objective Vital Signs Date Time Temp Pulse Resp B/P (MAP) Pulse Ox O2 Delivery O2 Flow Rate FiO2 02/03/20 07:40 99.9 77 16 126/31 (62) 97 Room Air 99.9 02/01/20 20:00 2.0 Intake and Output 02/03/20 07:00 Intake Total 1120 ml Balance 1120 ml Intake Oral 120 ml IV Total 1000 ml # Voids 2 Physical Exam Physical Exam She opens her eyes when her name is called but not following any commands. Her daughters are at bedside. Assessment Assessment Problems Medical Problems: (1) Cough Status: Acute (2) Left-sided weakness Status: Acute Plan Plan of Care To continue present care efforts as tolerated. Comment Review of Relevant I have reviewed the following items warner (where applicable) has been applied. Labs Laboratory Tests Test 02/01/20 10:00 02/01/20 10:56 02/01/20 16:15 02/01/20 20:25 Sodium Level 138 mmol/L (136-145) Potassium Level 5.9 mmol/L (3.5-5.1) Chloride Level 107 mmol/L (98-107) Carbon Dioxide Level 21 mmol/L (21-32) Anion Gap 10 (6-14) Blood Urea Nitrogen 60 mg/dL (7-20) Creatinine 1.6 mg/dL (0.6-1.0) Estimated GFR (Cockcroft-Gault) 39.0 Glucose Level 111 mg/dL (70-99) Calcium Level 10.8 mg/dL (8.5-10.1) Glucose (Fingerstick) 108 mg/dL (70-99) 187 mg/dL (70-99) 139 mg/dL (70-99) Test 02/02/20 07:20 02/02/20 11:24 02/02/20 16:18 02/02/20 21:26 Glucose (Fingerstick) 168 mg/dL (70-99) 165 mg/dL (70-99) 219 mg/dL (70-99) 211 mg/dL (70-99) Test 02/03/20 05:55 02/03/20 07:17 White Blood Count 20.9 x10^3/uL (4.0-11.0) Red Blood Count 4.37 x10^6/uL (3.50-5.40) Hemoglobin 11.2 g/dL (12.0-15.5) Hematocrit 35.1 % (36.0-47.0) Mean Corpuscular Volume 80 fL (79-100) Mean Corpuscular Hemoglobin 26 pg (25-35) Mean Corpuscular Hemoglobin Concent 32 g/dL (31-37) Red Cell Distribution Width 16.0 % (11.5-14.5) Platelet Count 259 x10^3/uL (140-400) Neutrophils (%) (Auto) 86 % (31-73) Lymphocytes (%) (Auto) 4 % (24-48) Monocytes (%) (Auto) 9 % (0-9) Eosinophils (%) (Auto) 0 % (0-3) Basophils (%) (Auto) 0 % (0-3) Neutrophils # (Auto) 18.1 x10^3/uL (1.8-7.7) Lymphocytes # (Auto) 0.9 x10^3/uL (1.0-4.8) Monocytes # (Auto) 1.9 x10^3/uL (0.0-1.1) Eosinophils # (Auto) 0.0 x10^3/uL (0.0-0.7) Basophils # (Auto) 0.0 x10^3/uL (0.0-0.2) Sodium Level 142 mmol/L (136-145) Potassium Level 6.2 mmol/L (3.5-5.1) Chloride Level 111 mmol/L (98-107) Carbon Dioxide Level 15 mmol/L (21-32) Anion Gap 16 (6-14) Blood Urea Nitrogen 90 mg/dL (7-20) Creatinine 2.3 mg/dL (0.6-1.0) Estimated GFR (Cockcroft-Gault) 25.7 BUN/Creatinine Ratio 39 (6-20) Glucose Level 289 mg/dL (70-99) Calcium Level 10.4 mg/dL (8.5-10.1) Magnesium Level 2.5 mg/dL (1.8-2.4) Total Bilirubin 0.2 mg/dL (0.2-1.0) Aspartate Amino Transf (AST/SGOT) 28 U/L (15-37) Alanine Aminotransferase (ALT/SGPT) 23 U/L (14-59) Alkaline Phosphatase 88 U/L (46-116) Total Protein 6.7 g/dL (6.4-8.2) Albumin 2.3 g/dL (3.4-5.0) Albumin/Globulin Ratio 0.5 (1.0-1.7) Glucose (Fingerstick) 280 mg/dL (70-99) Laboratory Tests Test 02/02/20 11:24 02/02/20 16:18 02/02/20 21:26 02/03/20 05:55 Glucose (Fingerstick) 165 mg/dL (70-99) 219 mg/dL (70-99) 211 mg/dL (70-99) White Blood Count 20.9 x10^3/uL (4.0-11.0) Red Blood Count 4.37 x10^6/uL (3.50-5.40) Hemoglobin 11.2 g/dL (12.0-15.5) Hematocrit 35.1 % (36.0-47.0) Mean Corpuscular Volume 80 fL (79-100) Mean Corpuscular Hemoglobin 26 pg (25-35) Mean Corpuscular Hemoglobin Concent 32 g/dL (31-37) Red Cell Distribution Width 16.0 % (11.5-14.5) Platelet Count 259 x10^3/uL (140-400) Neutrophils (%) (Auto) 86 % (31-73) Lymphocytes (%) (Auto) 4 % (24-48) Monocytes (%) (Auto) 9 % (0-9) Eosinophils (%) (Auto) 0 % (0-3) Basophils (%) (Auto) 0 % (0-3) Neutrophils # (Auto) 18.1 x10^3/uL (1.8-7.7) Lymphocytes # (Auto) 0.9 x10^3/uL (1.0-4.8) Monocytes # (Auto) 1.9 x10^3/uL (0.0-1.1) Eosinophils # (Auto) 0.0 x10^3/uL (0.0-0.7) Basophils # (Auto) 0.0 x10^3/uL (0.0-0.2) Sodium Level 142 mmol/L (136-145) Potassium Level 6.2 mmol/L (3.5-5.1) Chloride Level 111 mmol/L (98-107) Carbon Dioxide Level 15 mmol/L (21-32) Anion Gap 16 (6-14) Blood Urea Nitrogen 90 mg/dL (7-20) Creatinine 2.3 mg/dL (0.6-1.0) Estimated GFR (Cockcroft-Gault) 25.7 BUN/Creatinine Ratio 39 (6-20) Glucose Level 289 mg/dL (70-99) Calcium Level 10.4 mg/dL (8.5-10.1) Magnesium Level 2.5 mg/dL (1.8-2.4) Total Bilirubin 0.2 mg/dL (0.2-1.0) Aspartate Amino Transf (AST/SGOT) 28 U/L (15-37) Alanine Aminotransferase (ALT/SGPT) 23 U/L (14-59) Alkaline Phosphatase 88 U/L (46-116) Total Protein 6.7 g/dL (6.4-8.2) Albumin 2.3 g/dL (3.4-5.0) Albumin/Globulin Ratio 0.5 (1.0-1.7) Test 02/03/20 07:17 Glucose (Fingerstick) 280 mg/dL (70-99) Medications Current Medications Clonidine HCl (Catapres) 0.2 mg 1X ONCE PO Last administered on 01/23/20at 17:38; Start 01/23/20 at 17:30; Stop 01/23/20 at 17:31; Status DC Ondansetron HCl (Zofran) 4 mg PRN Q8HRS PRN IV NAUSEA/VOMITING; Start 01/23/20 at 17:45; Stop 01/24/20 at 17:44; Status DC Morphine Sulfate (Morphine Sulfate) 2 mg PRN Q2HR PRN IV PAIN; Start 01/23/20 at 17:45; Stop 01/24/20 at 17:44; Status DC Dextrose/Sodium Chloride 1,000 ml @ 100 mls/hr 1X ONCE IV Last administered on 01/23/20at 19:24; Start 01/23/20 at 17:45; Stop 01/24/20 at 03:44; Status DC Pharmacy Consult (C.diff Med Screen By Rx) 1 each 1X ONCE MC Last administered on 01/24/20at 08:26; Start 01/24/20 at 09:00; Stop 01/24/20 at 09:01; Status DC Labetalol HCl (Normodyne Iv Push) 20 mg PRN Q4HRS PRN IVP HYPERTENSION, 2nd choice Last administered on 01/26/20at 00:17; Start 01/24/20 at 04:15 Clonidine HCl (Catapres Tts-3) 1 patch WEEKLY TD ; Start 01/24/20 at 09:00; Stop 01/24/20 at 05:21; Status DC Piperacillin Sod/ Tazobactam Sod (Zosyn Per Pharmacy) 1 each PRN DAILY PRN [facility] SEE COMMENTS; Start 01/24/20 at 04:30; Stop 01/24/20 at 09:32; Status DC Piperacillin Sod/ Tazobactam Sod 3.375 gm/Sodium Chloride 50 ml @ 100 mls/hr Q6H IV Last administered on 01/24/20at 05:06; Start 01/24/20 at 05:00; Stop 01/24/20 at 09:30; Status DC Clonidine HCl (Catapres Tts-3) 1 patch WEEKLY TD Last administered on 01/31/20at 08:22; Start 01/24/20 at 16:00 Clonidine HCl (Catapres Tts-3) 1 patch 1X ONCE TD ; Start 01/24/20 at 05:30; Stop 01/24/20 at 05:31; Status DC Levetiracetam (Keppra) 500 mg BID PO ; Start 01/24/20 at 09:00; Status Cancel Acetaminophen (Tylenol) 650 mg PRN Q6HRS PRN PO TEMP > 100.4F; Start 01/24/20 at 08:30; Stop 01/26/20 at 12:00; Status DC Acetaminophen (Tylenol Supp) 650 mg PRN Q4HRS PRN [place] TEMP > 100.4F; Start 01/24/20 at 08:30 Aspirin (Ecotrin) 325 mg DAILYWBKFT PO Last administered on 02/02/20at 09:03; Start 01/25/20 at 08:00 Aspirin (Aspirin Rectal Supp) 300 mg PRN DAILY PRN [place] IF UNABLE TO TAKE PO; Start 01/24/20 at 08:30 Lorazepam (Ativan Inj) 2 mg PRN Q4HRS PRN IVP ANXIETY / AGITATION Last administered on 01/24/20at 10:14; Start 01/24/20 at 10:00; Stop 01/24/20 at 16:35; Status DC Acetaminophen (Tylenol) 1,000 mg PRN Q8HRS PRN PO MILD PAIN OR FEVER; Start 01/24/20 at 10:15 Aspirin (Ecotrin) 81 mg DAILY PO ; Start 01/25/20 at 09:00; Status UNV Vitamin B Complex/ Vitamin C (Vicki-Stacey) 1 tab DAILY PO Last administered on 02/02/20 09:03; Start 01/25/20 at 09:00 Hydralazine HCl (Apresoline) 25 mg BID PO Last administered on 02/02/20 21:53; Start 01/24/20 at 21:00 Insulin Human Lispro (HumaLOG) 2 units DAILYWLUN SQ Last administered on 02/02/20at 11:45; Start 01/24/20 at 12:00 Insulin Human Lispro (HumaLOG) 4 units DAILYWBKFT SQ Last administered on 02/02/20at 09:18; Start 01/25/20 at 08:00 Insulin Human Lispro (HumaLOG) 8 units DAILYWSUP SQ Last administered on 02/02/20at 17:00; Start 01/24/20 at 17:00 Lisinopril (Prinivil) 20 mg DAILY PO Last administered on 02/01/20at 10:37; Start 01/24/20 at 12:00; Stop 02/02/20 at 11:51; Status DC Prednisone (Prednisone) 2 mg DAILY PO Last administered on 01/26/20at 10:15; Start 01/24/20 at 12:00; Stop 01/26/20 at 12:24; Status DC Quetiapine Fumarate (SEROquel) 25 mg BID PO Last administered on 01/26/20 21:14; Start 01/24/20 at 12:00; Stop 01/27/20 at 09:52; Status DC Tacrolimus (Prograf) 0.5 mg BID PO Last administered on 02/02/20 21:52; Start 01/24/20 at 12:00 Trazodone HCl (Desyrel) 50 mg QHS PO Last administered on 01/26/20at 21:14; Start 01/24/20 at 21:00; Stop 01/27/20 at 09:52; Status DC Fluconazole (Diflucan) 200 mg DAILY PO Last administered on 02/02/20 09:03; Start 01/24/20 at 11:00 Insulin Glargine (Lantus Syringe) 18 unit QHS SQ ; Start 01/24/20 at 21:00; Stop 01/24/20 at 20:59; Status DC Olanzapine (ZyPREXA) 10 mg QHS PO Last administered on 01/26/20at 21:14; Start 01/24/20 at 21:00; Stop 01/27/20 at 09:52; Status DC Enoxaparin Sodium (Lovenox 40mg Syringe) 40 mg Q24H SQ Last administered on 01/26/20at 10:12; Start 01/24/20 at 11:00; Stop 01/26/20 at 12:24; Status DC Amino Acids/ Glycerin/ Electrolytes 1,000 ml @ 75 mls/hr [id number] IV Last administered on 01/29/20at 15:50; Start 01/24/20 at 13:45; Stop 01/30/20 at 10:00; Status DC Levetiracetam 500 mg/Dextrose 105 ml @ 420 mls/hr Q12HR IV Last administered on 01/26/20at 21:14; Start 01/24/20 at 13:45; Stop 01/27/20 at 08:47; Status DC Non-Formulary Medication 0.5 ea BID NG Last administered on 01/24/20at 21:12; Start 01/24/20 at 15:00; Stop 01/27/20 at 04:41; Status DC Lorazepam (Ativan Inj) 0.5 mg PRN Q4HRS PRN IVP ANXIETY / AGITATION Last administered on 01/25/20at 06:34; Start 01/24/20 at 16:45 Insulin Glargine (Lantus Syringe) 18 unit QHS SQ Last administered on 02/02/20at 21:55; Start 01/24/20 at 21:00 Dextrose (Dextrose 50%-Water Syringe) 12.5 gm PRN Q15MIN PRN IV SEE COMMENTS; Start 01/24/20 at 21:45 Enalaprilat (Vasotec Inj) 1.25 mg PRN Q6HRS PRN IVP HYPERTENSION, 1st choice; Start 01/25/20 at 12:00 Prednisone (Prednisone) 5 mg DAILY PO Last administered on 02/02/20at 09:03; S tart 01/27/20 at 09:00 Levetiracetam (Keppra) 500 mg BID PO Last administered on 02/02/20at 21:52; Start 01/27/20 at 09:00 Tacrolimus (Prograf Oral Susp) 0.5 mg STK-MED ONCE .ROUTE ; Start 01/24/20 at 21:00; Stop 01/27/20 at 14:30; Status DC Tacrolimus (Prograf Oral Susp) 0.5 mg STK-MED ONCE .ROUTE ; Start 01/24/20 at 21:00; Stop 01/27/20 at 14:30; Status DC Cefazolin Sodium (Ancef) 1 gm 1X ONCE IVP ; Start 01/31/20 at 12:00; Stop 01/31/20 at 12:01; Status DC Ringer's Solution 1,000 ml @ 50 mls/hr Q20H IV ; Start 01/31/20 at 07:00; Stop 01/31/20 at 18:59; Status DC Ringer's Solution 1,000 ml @ 75 mls/hr 1X ONCE IV ; Start 01/31/20 at 08:15; Stop 01/31/20 at 21:34; Status DC Hydralazine HCl (Apresoline Inj) 10 mg PRN Q4HRS PRN IVP ELEVATED BP, SEE COMMENTS Last administered on 01/31/20at 10:55; Start 01/31/20 at 09:45 Propofol (Diprivan) 200 mg STK-MED ONCE IV ; Start 01/31/20 at 13:08; Stop 01/31/20 at 13:09; Status DC Sodium Chloride 1,000 ml @ 100 mls/hr Q10H IV Last administered on 02/02/20at 21:54; Start 02/02/20 at 11:00 Active Scripts Active Diflucan (Fluconazole) 100 Mg Tablet 200 Mg PO DAILY Reported Zyprexa (Olanzapine) 10 Mg Tablet 1 Tab PO QHS Trazodone Hcl 50 Mg Tablet 1 Tab PO QHS Seroquel (Quetiapine Fumarate) 25 Mg Tablet 25 Mg PO BID Humalog (Insulin Lispro) 100 Unit/1 Ml Vial 2 Unit SQ [id number] Lisinopril 20 Mg Tablet 1 Tab PO DAILY Acetaminophen 500 Mg Tablet 2 Tab PO PRN Q8HRS PRN 15 Days Prednisone 1 Mg Tablet 2 Mg PO DAILY Humalog (Insulin Lispro) 100 Unit/1 Ml Vial 8 Unit SQ [id number] Humalog (Insulin Lispro) 100 Unit/1 Ml Vial 4 Unit SQ [id number] Hydralazine Hcl 25 Mg Tablet 1 Tab PO BID Aspir-Low (Aspirin) 81 Mg Tablet. 1 Tab PO DAILY Prograf (Tacrolimus) 1 Mg Capsule 0.5 Mg PO BID Levemir (Insulin Detemir) 100 Unit/1 Ml Vial 18 Unit SQ QHS Hold for FSBS below 90 and call Nephro-Stacey Tablet (Folic Acid/Vitamin B Comp W-C) 0.8 Mg Tablet 1 Tab PO DAILY Levetiracetam 500 Mg Tablet 500 Mg PO BID Vitals/I & O Vital Sign - Last 24 Hours 02/02/20 02/02/20 02/02/20 02/02/20 11:08 14:40 19:00 20:00 Temp 99.8 98.5 98.2 99.8 98.5 98.2 Pulse 92 72 84 Resp 16 17 18 B/P (MAP) 87/35 (52) 121/28 (59) 156/58 (90) Pulse Ox 100 99 100 O2 Delivery Room Air Room Air Room Air 02/02/20 02/02/20 02/03/20 02/03/20 21:53 23:00 03:00 07:40 Temp 98.8 99.9 99.9 98.8 99.9 99.9 Pulse 72 95 89 77 Resp 18 16 16 B/P (MAP) 121/28 143/50 (81) 148/36 (73) 126/31 (62) Pulse Ox 97 99 97 O2 Delivery Room Air Intake and Output 02/02/20 02/02/20 02/03/20 15:00 23:00 07:00 Intake Total 1000 ml 120 ml Balance 1000 ml 120 ml Nutrition Consultation Dietary Evaluation: Recommendations by RD: Dietary education by RD, Increase Calorie Intake Comments: REC TFs via PEG per following: Glucerna 1.2@20 ml/hr, increase 10 ml q8 hrs as tolerated to goal rate 50 ml/hr w/100 ml water flushes q4 hrs or flushes per MD Continue w/pleasure feeds of dysphagia I/honey thick liquids per TELE[employer]ION [employer]ICE [employer]ER Expected Outcomes/Goals: New goal 01/26: PO intake to meet >75% est needs - not met, new goal established New goal 01/30: TF infusion + PO intake to meet >75% est needs Malnutrition Findings: Body Fat Depletion (Non Severe: Mild Depletion Weight Status: Appropriate RADHA HUITRON MD Feb 03, 2020 09:14
--- NOTE | 2020-02-03 09:21 | PDOC ---
Infectious Disease Note Subjective: Subjective Patient was awaiting peg tube placement This a.m. became lethargic this a.m., very weak Does not answer all questions ROS: ROS Unable to obtain Vital Signs: Vital Signs Vital Signs Date Time Temp Pulse Resp B/P (MAP) Pulse Ox O2 Delivery O2 Flow Rate FiO2 02/03/20 07:40 99.9 77 16 126/31 (62) 97 Room Air 99.9 Physical Exam: PHYSICAL EXAM GENERAL: Patient lying down, lethargic, arousable but does not answer any questions HEENT: Pupils small and equal NECK: Supple LUNGS: Creased breath sound at the bases no accessory muscle use HEART: S1, S2. regular ABDOMEN: Soft, no grimacing on deep palpation , no guarding or rigidity no [place] EXTREMITIES: No edema, no cyanosis, no clubbing. Previous amputation site, left great and second toe scar intact. No draining wounds. SKIN: warm to touch. No generalized rash. 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 PIV looks ok Medications: Inpatient Meds: Current Medications Medications (Trade) Dose Ordered Sig/Te Start Time Stop Time Status Last Admin Dose Admin Acetaminophen (Tylenol Supp) 650 mg PRN Q4HRS PRN 01/24/20 08:30 Acetaminophen (Tylenol) 1,000 mg PRN Q8HRS PRN 01/24/20 10:15 Amino Acids/ Glycerin/ Electrolytes 1,000 ml @ 75 mls/hr [id number] 01/24/20 13:45 01/30/20 10:00 DC 01/29/20 15:50 75 MLS/HR Aspirin (Aspirin Rectal Supp) 300 mg PRN DAILY PRN 01/24/20 08:30 Aspirin (Ecotrin) 81 mg DAILY 01/25/20 09:00 UNV Cefazolin Sodium (Ancef) 1 gm 1X ONCE 01/31/20 12:00 01/31/20 12:01 DC Clonidine HCl (Catapres Tts-3) 1 patch 1X ONCE 01/24/20 05:30 01/24/20 05:31 DC Clonidine HCl (Catapres) 0.2 mg 1X ONCE 01/23/20 17:30 01/23/20 17:31 DC 01/23/20 17:38 0.2 MG Dextrose (Dextrose 50%-Water Syringe) 12.5 gm PRN Q15MIN PRN 01/24/20 21:45 Dextrose/Sodium Chloride 1,000 ml @ 100 mls/hr 1X ONCE 01/23/20 17:45 01/24/20 03:44 DC 01/23/20 19:24 100 MLS/HR Enalaprilat (Vasotec Inj) 1.25 mg PRN Q6HRS PRN 01/25/20 12:00 Enoxaparin Sodium (Lovenox 40mg Syringe) 40 mg Q24H 01/24/20 11:00 01/26/20 12:24 DC 01/26/20 10:12 40 MG Fluconazole (Diflucan) 200 mg DAILY 01/24/20 11:00 02/02/20 09:03 200 MG Hydralazine HCl (Apresoline Inj) 10 mg PRN Q4HRS PRN 01/31/20 09:45 01/31/20 10:55 10 MG Hydralazine HCl (Apresoline) 25 mg BID 01/24/20 21:00 02/02/20 21:53 25 MG Insulin Glargine (Lantus Syringe) 18 unit QHS 01/24/20 21:00 02/02/20 21:55 18 UNIT Insulin Human Lispro (HumaLOG) 8 units DAILYWSUP 01/24/20 17:00 02/02/20 17:00 8 UNITS Labetalol HCl (Normodyne Iv Push) 20 mg PRN Q4HRS PRN 01/24/20 04:15 01/26/20 00:17 20 MG Levetiracetam (Keppra) 500 mg BID 01/27/20 09:00 02/02/20 21:52 500 MG Levetiracetam 500 mg/Dextrose 105 ml @ 420 mls/hr Q12HR 01/24/20 13:45 01/27/20 08:47 DC 01/26/20 21:14 420 MLS/HR Lisinopril (Prinivil) 20 mg DAILY 01/24/20 12:00 02/02/20 11:51 DC 02/01/20 10:37 20 MG Lorazepam (Ativan Inj) 0.5 mg PRN Q4HRS PRN 01/24/20 16:45 01/25/20 06:34 0.5 MG Morphine Sulfate (Morphine Sulfate) 2 mg PRN Q2HR PRN 01/23/20 17:45 01/24/20 17:44 DC Non-Formulary Medication 0.5 ea BID 01/24/20 15:00 01/27/20 04:41 DC 01/24/20 21:12 0.5 EA Olanzapine (ZyPREXA) 10 mg QHS 01/24/20 21:00 01/27/20 09:52 DC 01/26/20 21:14 10 MG Ondansetron HCl (Zofran) 4 mg PRN Q8HRS PRN 01/23/20 17:45 01/24/20 17:44 DC Pharmacy Consult (C.diff Med Screen By Rx) 1 each 1X ONCE 01/24/20 09:00 01/24/20 09:01 DC 01/24/20 08:26 1 EACH Piperacillin Sod/ Tazobactam Sod (Zosyn Per Pharmacy) 1 each PRN DAILY PRN 01/24/20 04:30 01/24/20 09:32 DC Piperacillin Sod/ Tazobactam Sod 3.375 gm/Sodium Chloride 50 ml @ 100 mls/hr Q6H 01/24/20 05:00 01/24/20 09:30 DC 01/24/20 05:06 100 MLS/HR Prednisone (Prednisone) 5 mg DAILY 01/27/20 09:00 02/02/20 09:03 5 MG Propofol (Diprivan) 200 mg STK-MED ONCE 01/31/20 13:08 01/31/20 13:09 DC Quetiapine Fumarate (SEROquel) 25 mg BID 01/24/20 12:00 01/27/20 09:52 DC 01/26/20 21:14 25 MG Ringer's Solution 1,000 ml @ 75 mls/hr 1X ONCE 01/31/20 08:15 01/31/20 21:34 DC Sodium Chloride 1,000 ml @ 100 mls/hr Q10H 02/02/20 11:00 02/02/20 21:54 100 MLS/HR Tacrolimus (Prograf Oral Susp) 0.5 mg STK-MED ONCE 01/24/20 21:00 01/27/20 14:30 DC Tacrolimus (Prograf) 0.5 mg BID 01/24/20 12:00 02/02/20 21:52 0.5 MG Trazodone HCl (Desyrel) 50 mg QHS 01/24/20 21:00 01/27/20 09:52 DC 01/26/20 21:14 50 MG Vitamin B Complex/ Vitamin C (Vicki-Stacey) 1 tab DAILY 01/25/20 09:00 02/02/20 09:03 1 TAB Labs: Lab Laboratory Tests Test 02/02/20 11:24 02/02/20 16:18 02/02/20 21:26 02/03/20 05:55 Glucose (Fingerstick) 165 mg/dL (70-99) 219 mg/dL (70-99) 211 mg/dL (70-99) White Blood Count 20.9 x10^3/uL (4.0-11.0) Red Blood Count 4.37 x10^6/uL (3.50-5.40) Hemoglobin 11.2 g/dL (12.0-15.5) Hematocrit 35.1 % (36.0-47.0) Mean Corpuscular Volume 80 fL (79-100) Mean Corpuscular Hemoglobin 26 pg (25-35) Mean Corpuscular Hemoglobin Concent 32 g/dL (31-37) Red Cell Distribution Width 16.0 % (11.5-14.5) Platelet Count 259 x10^3/uL (140-400) Neutrophils (%) (Auto) 86 % (31-73) Lymphocytes (%) (Auto) 4 % (24-48) Monocytes (%) (Auto) 9 % (0-9) Eosinophils (%) (Auto) 0 % (0-3) Basophils (%) (Auto) 0 % (0-3) Neutrophils # (Auto) 18.1 x10^3/uL (1.8-7.7) Lymphocytes # (Auto) 0.9 x10^3/uL (1.0-4.8) Monocytes # (Auto) 1.9 x10^3/uL (0.0-1.1) Eosinophils # (Auto) 0.0 x10^3/uL (0.0-0.7) Basophils # (Auto) 0.0 x10^3/uL (0.0-0.2) Sodium Level 142 mmol/L (136-145) Potassium Level 6.2 mmol/L (3.5-5.1) Chloride Level 111 mmol/L (98-107) Carbon Dioxide Level 15 mmol/L (21-32) Anion Gap 16 (6-14) Blood Urea Nitrogen 90 mg/dL (7-20) Creatinine 2.3 mg/dL (0.6-1.0) Estimated GFR (Cockcroft-Gault) 25.7 BUN/Creatinine Ratio 39 (6-20) Glucose Level 289 mg/dL (70-99) Calcium Level 10.4 mg/dL (8.5-10.1) Magnesium Level 2.5 mg/dL (1.8-2.4) Total Bilirubin 0.2 mg/dL (0.2-1.0) Aspartate Amino Transf (AST/SGOT) 28 U/L (15-37) Alanine Aminotransferase (ALT/SGPT) 23 U/L (14-59) Alkaline Phosphatase 88 U/L (46-116) Total Protein 6.7 g/dL (6.4-8.2) Albumin 2.3 g/dL (3.4-5.0) Albumin/Globulin Ratio 0.5 (1.0-1.7) Test 02/03/20 07:17 Glucose (Fingerstick) 280 mg/dL (70-99) Micro Cultures negative Cryptococcal antigen in the blood 1 is to 40 CSF unremarkable CSF Fungal cults cancelled Objective: Assessment: Leucocytosis Low-grade fever Encephalopathy. History of epilepsy. Diabetes with peripheral neuropathy. h/o disseminated cryptococcus, on fluconazole. Gastroesophageal reflux disease. History of kidney transplant. Peripheral arterial disease. Chronic kidney disease, status post renal transplant. Coronary artery disease. COVID-19 neg, 01/23 Encephalopathy improved Plan: Plan of Care Continue Zosyn February 02 possible aspiration , Zyvox 02/02 Continue chronic fluconazole treatment maintain aspiration precautions Follow-up labs and cultures, blood culture and urine culture Neurology following awaiting MRI of the brain Supportive care Discussed with daughter and granddaughter at bedside Discussed with LINDY OCASIO MD Feb 03, 2020 09:21
--- NOTE | 2020-02-03 09:24 | PDOC ---
PROGRESS NOTES Assessment Problems Medical Problems: (1) Cough Status: Acute (2) Left-sided weakness Status: Acute Metabolic encephalopathy No acute stroke. Dementia and multiple psychiatric diagnoses. 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 Diabetic peripheral neuropathy Ruled out COVID Poor oral intake, PEG unsuccessful, awaiting G-tube Note LP done, negative, elevated protein in isolation is nonspecific, may be seen, for instance, in diabetes Medical issues: status-post renal transplant, chronic allograft nephropathy, CKD stage 3, istory of disseminated Cryptococcus, coronary artery disease, anemia, lung nodules Plan No additional stroke or TIA workup required Levetiracetam No further neurological tests or treatment Return to residential or LTAC when medically stable Subjective None Objective Vital Signs Date Time Temp Pulse Resp B/P (MAP) Pulse Ox O2 Delivery O2 Flow Rate FiO2 02/03/20 07:40 99.9 77 16 126/31 (62) 97 Room Air 99.9 Intake and Output 02/03/20 07:00 Intake Total 1120 ml Balance 1120 ml Intake Oral 120 ml IV Total 1000 ml # Voids 2 PHYSICAL EXAM Alert. Oriented only to person. PERRL. EOMI. CN: no focal findings. Muscle tone: normal. Muscle strength: 3/5 DTR: 1+ Plantar reflex: flexor Gait: not examined in bed. Sensory exam: stocking loss. Cerebellar: Not cooperative Review of Relevant I have reviewed the following items warner (where applicable) has been applied. Labs Laboratory Tests Test 02/01/20 10:00 02/01/20 10:56 02/01/20 16:15 02/01/20 20:25 Sodium Level 138 mmol/L (136-145) Potassium Level 5.9 mmol/L (3.5-5.1) Chloride Level 107 mmol/L (98-107) Carbon Dioxide Level 21 mmol/L (21-32) Anion Gap 10 (6-14) Blood Urea Nitrogen 60 mg/dL (7-20) Creatinine 1.6 mg/dL (0.6-1.0) Estimated GFR (Cockcroft-Gault) 39.0 Glucose Level 111 mg/dL (70-99) Calcium Level 10.8 mg/dL (8.5-10.1) Glucose (Fingerstick) 108 mg/dL (70-99) 187 mg/dL (70-99) 139 mg/dL (70-99) Test 02/02/20 07:20 02/02/20 11:24 02/02/20 16:18 02/02/20 21:26 Glucose (Fingerstick) 168 mg/dL (70-99) 165 mg/dL (70-99) 219 mg/dL (70-99) 211 mg/dL (70-99) Test 02/03/20 05:55 02/03/20 07:17 White Blood Count 20.9 x10^3/uL (4.0-11.0) Red Blood Count 4.37 x10^6/uL (3.50-5.40) Hemoglobin 11.2 g/dL (12.0-15.5) Hematocrit 35.1 % (36.0-47.0) Mean Corpuscular Volume 80 fL (79-100) Mean Corpuscular Hemoglobin 26 pg (25-35) Mean Corpuscular Hemoglobin Concent 32 g/dL (31-37) Red Cell Distribution Width 16.0 % (11.5-14.5) Platelet Count 259 x10^3/uL (140-400) Neutrophils (%) (Auto) 86 % (31-73) Lymphocytes (%) (Auto) 4 % (24-48) Monocytes (%) (Auto) 9 % (0-9) Eosinophils (%) (Auto) 0 % (0-3) Basophils (%) (Auto) 0 % (0-3) Neutrophils # (Auto) 18.1 x10^3/uL (1.8-7.7) Lymphocytes # (Auto) 0.9 x10^3/uL (1.0-4.8) Monocytes # (Auto) 1.9 x10^3/uL (0.0-1.1) Eosinophils # (Auto) 0.0 x10^3/uL (0.0-0.7) Basophils # (Auto) 0.0 x10^3/uL (0.0-0.2) Sodium Level 142 mmol/L (136-145) Potassium Level 6.2 mmol/L (3.5-5.1) Chloride Level 111 mmol/L (98-107) Carbon Dioxide Level 15 mmol/L (21-32) Anion Gap 16 (6-14) Blood Urea Nitrogen 90 mg/dL (7-20) Creatinine 2.3 mg/dL (0.6-1.0) Estimated GFR (Cockcroft-Gault) 25.7 BUN/Creatinine Ratio 39 (6-20) Glucose Level 289 mg/dL (70-99) Calcium Level 10.4 mg/dL (8.5-10.1) Magnesium Level 2.5 mg/dL (1.8-2.4) Total Bilirubin 0.2 mg/dL (0.2-1.0) Aspartate Amino Transf (AST/SGOT) 28 U/L (15-37) Alanine Aminotransferase (ALT/SGPT) 23 U/L (14-59) Alkaline Phosphatase 88 U/L (46-116) Total Protein 6.7 g/dL (6.4-8.2) Albumin 2.3 g/dL (3.4-5.0) Albumin/Globulin Ratio 0.5 (1.0-1.7) Glucose (Fingerstick) 280 mg/dL (70-99) Laboratory Tests Test 02/02/20 11:24 02/02/20 16:18 02/02/20 21:26 02/03/20 05:55 Glucose (Fingerstick) 165 mg/dL (70-99) 219 mg/dL (70-99) 211 mg/dL (70-99) White Blood Count 20.9 x10^3/uL (4.0-11.0) Red Blood Count 4.37 x10^6/uL (3.50-5.40) Hemoglobin 11.2 g/dL (12.0-15.5) Hematocrit 35.1 % (36.0-47.0) Mean Corpuscular Volume 80 fL (79-100) Mean Corpuscular Hemoglobin 26 pg (25-35) Mean Corpuscular Hemoglobin Concent 32 g/dL (31-37) Red Cell Distribution Width 16.0 % (11.5-14.5) Platelet Count 259 x10^3/uL (140-400) Neutrophils (%) (Auto) 86 % (31-73) Lymphocytes (%) (Auto) 4 % (24-48) Monocytes (%) (Auto) 9 % (0-9) Eosinophils (%) (Auto) 0 % (0-3) Basophils (%) (Auto) 0 % (0-3) Neutrophils # (Auto) 18.1 x10^3/uL (1.8-7.7) Lymphocytes # (Auto) 0.9 x10^3/uL (1.0-4.8) Monocytes # (Auto) 1.9 x10^3/uL (0.0-1.1) Eosinophils # (Auto) 0.0 x10^3/uL (0.0-0.7) Basophils # (Auto) 0.0 x10^3/uL (0.0-0.2) Sodium Level 142 mmol/L (136-145) Potassium Level 6.2 mmol/L (3.5-5.1) Chloride Level 111 mmol/L (98-107) Carbon Dioxide Level 15 mmol/L (21-32) Anion Gap 16 (6-14) Blood Urea Nitrogen 90 mg/dL (7-20) Creatinine 2.3 mg/dL (0.6-1.0) Estimated GFR (Cockcroft-Gault) 25.7 BUN/Creatinine Ratio 39 (-20) Glucose Level 289 mg/dL (70-99) Calcium Level 10.4 mg/dL (8.5-10.1) Magnesium Level 2.5 mg/dL (1.8-2.4) Total Bilirubin 0.2 mg/dL (0.2-1.0) Aspartate Amino Transf (AST/SGOT) 28 U/L (15-37) Alanine Aminotransferase (ALT/SGPT) 23 U/L (14-59) Alkaline Phosphatase 88 U/L (46-116) Total Protein 6.7 g/dL (6.4-8.2) Albumin 2.3 g/dL (3.4-5.0) Albumin/Globulin Ratio 0.5 (1.0-1.7) Test 02/03/20 07:17 Glucose (Fingerstick) 280 mg/dL (70-99) Medications Current Medications Clonidine HCl (Catapres) 0.2 mg 1X ONCE PO Last administered on 01/23/20at 17:38; Start 01/23/20 at 17:30; Stop 01/23/20 at 17:31; Status DC Ondansetron HCl (Zofran) 4 mg PRN Q8HRS PRN IV NAUSEA/VOMITING; Start 01/23/20 at 17:45; Stop 01/24/20 at 17:44; Status DC Morphine Sulfate (Morphine Sulfate) 2 mg PRN Q2HR PRN IV PAIN; Start 01/23/20 a t 17:45; Stop 01/24/20 at 17:44; Status DC Dextrose/Sodium Chloride 1,000 ml @ 100 mls/hr 1X ONCE IV Last administered on 01/23/20at 19:24; Start 01/23/20 at 17:45; Stop 01/24/20 at 03:44; Status DC Pharmacy Consult (C.diff Med Screen By Rx) 1 each 1X ONCE MC Last administered on 01/24/20at 08:26; Start 01/24/20 at 09:00; Stop 01/24/20 at 09:01; Status DC Labetalol HCl (Normodyne Iv Push) 20 mg PRN Q4HRS PRN IVP HYPERTENSION, 2nd choice Last administered on 01/26/20at 00:17; Start 01/24/20 at 04:15 Clonidine HCl (Catapres Tts-3) 1 patch WEEKLY TD ; Start 01/24/20 at 09:00; Stop 01/24/20 at 05:21; Status DC Piperacillin Sod/ Tazobactam Sod (Zosyn Per Pharmacy) 1 each PRN DAILY PRN MC SEE COMMENTS; Start 01/24/20 at 04:30; Stop 01/24/20 at 09:32; Status DC Piperacillin Sod/ Tazobactam Sod 3.375 gm/Sodium Chloride 50 ml @ 100 mls/hr Q6H IV Last administered on 01/24/20at 05:06; Start 01/24/20 at 05:00; Stop 01/24/20 at 09:30; Status DC Clonidine HCl (Catapres Tts-3) 1 patch WEEKLY TD Last administered on 01/31/20at 08:22; Start 01/24/20 at 16:00 Clonidine HCl (Catapres Tts-3) 1 patch 1X ONCE TD ; Start 01/24/20 at 05:30; Stop 01/24/20 at 05:31; Status DC Levetiracetam (Keppra) 500 mg BID PO ; Start 01/24/20 at 09:00; Status Cancel Acetaminophen (Tylenol) 650 mg PRN Q6HRS PRN PO TEMP > 100.4F; Start 01/24/20 at 08:30; Stop 01/26/20 at 12:00; Status DC Acetaminophen (Tylenol Supp) 650 mg PRN Q4HRS PRN NC TEMP > 100.4F; Start 01/24/20 at 08:30 Aspirin (Ecotrin) 325 mg DAILYWBKFT PO Last administered on 02/02/20 09:03; Start 01/25/20 at 08:00 Aspirin (Aspirin Rectal Supp) 300 mg PRN DAILY PRN NC IF UNABLE TO TAKE PO; Start 01/24/20 at 08:30 Lorazepam (Ativan Inj) 2 mg PRN Q4HRS PRN IVP ANXIETY / AGITATION Last administered on 01/24/20at 10:14; Start 01/24/20 at 10:00; Stop 01/24/20 at 16:35; Status DC Acetaminophen (Tylenol) 1,000 mg PRN Q8HRS PRN PO MILD PAIN OR FEVER; Start 01/24/20 at 10:15 Aspirin (Ecotrin) 81 mg DAILY PO ; Start 01/25/20 at 09:00; Status UNV Vitamin B Complex/ Vitamin C (Vicki-Stacey) 1 tab DAILY PO Last administered on 02/02/20 09:03; Start 01/25/20 at 09:00 Hydralazine HCl (Apresoline) 25 mg BID PO Last administered on 02/02/20at 21:53; Start 01/24/20 at 21:00 Insulin Human Lispro (HumaLOG) 2 units DAILYWLUN SQ Last administered on 02/02/20at 11:45; Start 01/24/20 at 12:00 Insulin Human Lispro (HumaLOG) 4 units DAILYWBKFT SQ Last administered on 02/02/20at 09:18; Start 01/25/20 at 08:00 Insulin Human Lispro (HumaLOG) 8 units DAILYWSUP SQ Last administered on 02/02/20at 17:00; Start 01/24/20 at 17:00 Lisinopril (Prinivil) 20 mg DAILY PO Last administered on 02/01/20at 10:37; Start 01/24/20 at 12:00; Stop 02/02/20 at 11:51; Status DC Prednisone (Prednisone) 2 mg DAILY PO Last administered on 01/26/20at 10:15; Start 01/24/20 at 12:00; Stop 01/26/20 at 12:24; Status DC Quetiapine Fumarate (SEROquel) 25 mg BID PO Last administered on 01/26/20at 21:14; Start 01/24/20 at 12:00; Stop 01/27/20 at 09:52; Status DC Tacrolimus (Prograf) 0.5 mg BID PO Last administered on 02/02/20 21:52; Start 01/24/20 at 12:00 Trazodone HCl (Desyrel) 50 mg QHS PO Last administered on 01/26/20 21:14; Start 01/24/20 at 21:00; Stop 01/27/20 at 09:52; Status DC Fluconazole (Diflucan) 200 mg DAILY PO Last administered on 02/02/20 09:03; Start 01/24/20 at 11:00 Insulin Glargine (Lantus Syringe) 18 unit QHS SQ ; Start 01/24/20 at 21:00; Stop 01/24/20 at 20:59; Status DC Olanzapine (ZyPREXA) 10 mg QHS PO Last administered on 01/26/20 21:14; Start 01/24/20 at 21:00; Stop 01/27/20 at 09:52; Status DC Enoxaparin Sodium (Lovenox 40mg Syringe) 40 mg Q24H SQ Last administered on 01/26/20at 10:12; Start 01/24/20 at 11:00; Stop 01/26/20 at 12:24; Status DC Amino Acids/ Glycerin/ Electrolytes 1,000 ml @ 75 mls/hr [id number] IV Last administered on 01/29/20at 15:50; Start 01/24/20 at 13:45; Stop 01/30/20 at 10:00; Status DC Levetiracetam 500 mg/Dextrose 105 ml @ 420 mls/hr Q12HR IV Last administered on 01/26/20 21:14; Start 01/24/20 at 13:45; Stop 01/27/20 at 08:47; Status DC Non-Formulary Medication 0.5 ea BID NG Last administered on 01/24/20 21:12; Start 01/24/20 at 15:00; Stop 01/27/20 at 04:41; Status DC Lorazepam (Ativan Inj) 0.5 mg PRN Q4HRS PRN IVP ANXIETY / AGITATION Last administered on 01/25/20at 06:34; Start 01/24/20 at 16:45 Insulin Glargine (Lantus Syringe) 18 unit QHS SQ Last administered on 02/02/20at 21:55; Start 01/24/20 at 21:00 Dextrose (Dextrose 50%-Water Syringe) 12.5 gm PRN Q15MIN PRN IV SEE COMMENTS; Start 01/24/20 at 21:45 Enalaprilat (Vasotec Inj) 1.25 mg PRN Q6HRS PRN IVP HYPERTENSION, 1st choice; Start 01/25/20 at 12:00 Prednisone (Prednisone) 5 mg DAILY PO Last administered on 02/02/20at 09:03; Start 01/27/20 at 09:00 Levetiracetam (Keppra) 500 mg BID PO Last administered on 02/02/20at 21:52; Start 01/27/20 at 09:00 Tacrolimus (Prograf Oral Susp) 0.5 mg STK-MED ONCE .ROUTE ; Start 01/24/20 at 21:00; Stop 01/27/20 at 14:30; Status DC Tacrolimus (Prograf Oral Susp) 0.5 mg STK-MED ONCE .ROUTE ; Start 01/24/20 at 21:00; Stop 01/27/20 at 14:30; Status DC Cefazolin Sodium (Ancef) 1 gm 1X ONCE IVP ; Start 01/31/20 at 12:00; Stop 01/31/20 at 12:01; Status DC Ringer's Solution 1,000 ml @ 50 mls/hr Q20H IV ; Start 01/31/20 at 07:00; Stop 01/31/20 at 18:59; Status DC Ringer's Solution 1,000 ml @ 75 mls/hr 1X ONCE IV ; Start 01/31/20 at 08:15; Stop 01/31/20 at 21:34; Status DC Hydralazine HCl (Apresoline Inj) 10 mg PRN Q4HRS PRN IVP ELEVATED BP, SEE COMMENTS Last administered on 01/31/20at 10:55; Start 01/31/20 at 09:45 Propofol (Diprivan) 200 mg STK-MED ONCE IV ; Start 01/31/20 at 13:08; Stop 01/31/20 at 13:09; Status DC Sodium Chloride 1,000 ml @ 100 mls/hr Q10H IV Last administered on 02/02/20at 21:54; Start 02/02/20 at 11:00 Active Scripts Active Diflucan (Fluconazole) 100 Mg Tablet 200 Mg PO DAILY Reported Zyprexa (Olanzapine) 10 Mg Tablet 1 Tab PO QHS Trazodone Hcl 50 Mg Tablet 1 Tab PO QHS Seroquel (Quetiapine Fumarate) 25 Mg Tablet 25 Mg PO BID Humalog (Insulin Lispro) 100 Unit/1 Ml Vial 2 Unit SQ DAILYBFRLUN Lisinopril 20 Mg Tablet 1 Tab PO DAILY Acetaminophen 500 Mg Tablet 2 Tab PO PRN Q8HRS PRN 15 Days Prednisone 1 Mg Tablet 2 Mg PO DAILY Humalog (Insulin Lispro) 100 Unit/1 Ml Vial 8 Unit SQ DAILYBFRSUP Humalog (Insulin Lispro) 100 Unit/1 Ml Vial 4 Unit SQ DAILYWBKFT Hydralazine Hcl 25 Mg Tablet 1 Tab PO BID Aspir-Low (Aspirin) 81 Mg Tablet. 1 Tab PO DAILY Prograf (Tacrolimus) 1 Mg Capsule 0.5 Mg PO BID Levemir (Insulin Detemir) 100 Unit/1 Ml Vial 18 Unit SQ QHS Hold for FSBS below 90 and call Nephro-Stacey Tablet (Folic Acid/Vitamin B Comp W-C) 0.8 Mg Tablet 1 Tab PO DAILY Levetiracetam 500 Mg Tablet 500 Mg PO BID Vitals/I & O Vital Sign - Last 24 Hours 02/02/20 02/02/20 02/02/20 02/02/20 11:08 14:40 19:00 20:00 Temp 99.8 98.5 98.2 99.8 98.5 98.2 Pulse 92 72 84 Resp 16 17 18 B/P (MAP) 87/35 (52) 121/28 (59) 156/58 (90) Pulse Ox 100 99 100 O2 Delivery Room Air Room Air Room Air 02/02/20 02/02/20 02/03/20 02/03/20 21:53 23:00 03:00 07:40 Temp 98.8 99.9 99.9 98.8 99.9 99.9 Pulse 72 95 89 77 Resp 18 16 16 B/P (MAP) 121/28 143/50 (81) 148/36 (73) 126/31 (62) Pulse Ox 97 99 97 O2 Delivery Room Air Intake and Output 02/02/20 02/02/20 02/03/20 15:00 23:00 07:00 Intake Total 1000 ml 120 ml Balance 1000 ml 120 ml Justicifation of Admission Dx: Justifications for Admission: Justification of Admission Dx: Yes Sepsis: Altered Mental Status Altered Mental Status: Altered Mental Status (immune compramised,s/p kidney transplant.) ISELA WASHINGTON MD Feb 03, 2020 09:23
--- NOTE | 2020-02-03 09:41 | NUR ---
AM Meds: pt am meds given late as pt's family at bedside bathing patient. Will administer meds when they are finished bathing. Will continue to monitor pt.
[2020-02-03 09:50] LABS: % BANDS 1 % (0-9); % LYMPHS 5 % (24-48); % MONOS 5 % (0-10); % SEGS 89 % (35-66); PLT ESTIMATE ADEQUATE (ADEQUATE)
--- NOTE | 2020-02-03 09:56 | PDOC ---
PROGRESS NOTES Subjective Subjective low grade fever 99.9 Objective Objective Vital Signs Date Time Temp Pulse Resp B/P (MAP) Pulse Ox O2 Delivery O2 Flow Rate FiO2 02/03/20 07:40 99.9 77 16 126/31 (62) 97 Room Air 99.9 Intake and Output 02/03/20 07:00 Intake Total 1120 ml Balance 1120 ml Intake Oral 120 ml IV Total 1000 ml # Voids 2 Physical Exam Abdomen: Soft Heart: Regular rate Extremities: No clubbing, No cyanosis General: No acute distress HEENT: Atraumatic Lungs: Clear to auscultation MUSCULOSKELETAL: No deformity, No swelling Neuro: Other (CONFUSED, lethargic) Skin: No rashes, No breakdown Diagnosis Problem List Problems Medical Problems: (1) Cough Status: Acute (2) Left-sided weakness Status: Acute Assessment Assessment Problems Medical Problems: (1) Cough Status: Acute (2) Left-sided weakness Status: Acute Metabolic Encephalopathy. Brain MRI neg acute findings , old CVA History of epilepsy. Diabetes with peripheral neuropathy. h/o disseminated cryptococcus, on fluconazole. Gastroesophageal reflux disease. History of kidney transplant. Peripheral arterial disease. Chronic kidney disease, status post renal transplant. Coronary artery disease.s/p cabg COVID-19 neg, 01/23 Plan Plan of Care: blood c/s , urine c/s cxr for fever wbc 20 letty bun 99/cr 2.9 needs central line TPN started iv Zosyn ?pneumonia monitor kidney function not stable for feeding tube surgery PEG tube could not be placed by Dr. Morrow. I will order surgical consult with Dr. Nava for surgical placement of the G-tube. LTAC or SNU. K 5.9. Recheck labs in a.m. PT/OT /Rehab consult labs reviewed, cryptococal antigen titre1;40 high in serum on procalamine for now Accelerated hypertension-systolic blood pressure 152/128 yesterday.. On IV hydralazine. Blood pressure is low today at 103/40 Recheck labs in a.m. Status post renal transplant on prednisone and Prograf Plan Plan of Care Problems Medical Problems: (1) Cough Status: Acute (2) Left-sided weakness Status: Acute Comment Review of Relevant I have reviewed the following items warner (where applicable) has been applied. Labs Laboratory Tests Test 02/02/20 11:24 02/02/20 16:18 02/02/20 21:26 02/03/20 05:55 Glucose (Fingerstick) 165 mg/dL (70-99) 219 mg/dL (70-99) 211 mg/dL (70-99) White Blood Count 20.9 x10^3/uL (4.0-11.0) Red Blood Count 4.37 x10^6/uL (3.50-5.40) Hemoglobin 11.2 g/dL (12.0-15.5) Hematocrit 35.1 % (36.0-47.0) Mean Corpuscular Volume 80 fL (79-100) Mean Corpuscular Hemoglobin 26 pg (25-35) Mean Corpuscular Hemoglobin Concent 32 g/dL (31-37) Red Cell Distribution Width 16.0 % (11.5-14.5) Platelet Count 259 x10^3/uL (140-400) Neutrophils (%) (Auto) 86 % (31-73) Lymphocytes (%) (Auto) 4 % (24-48) Monocytes (%) (Auto) 9 % (0-9) Eosinophils (%) (Auto) 0 % (0-3) Basophils (%) (Auto) 0 % (0-3) Neutrophils # (Auto) 18.1 x10^3/uL (1.8-7.7) Lymphocytes # (Auto) 0.9 x10^3/uL (1.0-4.8) Monocytes # (Auto) 1.9 x10^3/uL (0.0-1.1) Eosinophils # (Auto) 0.0 x10^3/uL (0.0-0.7) Basophils # (Auto) 0.0 x10^3/uL (0.0-0.2) Segmented Neutrophils % 89 % (35-66) Band Neutrophils % 1 % (0-9) Lymphocytes % 5 % (24-48) Monocytes % 5 % (0-10) Platelet Estimate Adequate (ADEQUATE) Large Platelets Occ Sodium Level 142 mmol/L (136-145) Potassium Level 6.2 mmol/L (3.5-5.1) Chloride Level 111 mmol/L (98-107) Carbon Dioxide Level 15 mmol/L (21-32) Anion Gap 16 (6-14) Blood Urea Nitrogen 90 mg/dL (7-20) Creatinine 2.3 mg/dL (0.6-1.0) Estimated GFR (Cockcroft-Gault) 25.7 BUN/Creatinine Ratio 39 (6-20) Glucose Level 289 mg/dL (70-99) Calcium Level 10.4 mg/dL (8.5-10.1) Magnesium Level 2.5 mg/dL (1.8-2.4) Total Bilirubin 0.2 mg/dL (0.2-1.0) Aspartate Amino Transf (AST/SGOT) 28 U/L (15-37) Alanine Aminotransferase (ALT/SGPT) 23 U/L (14-59) Alkaline Phosphatase 88 U/L (46-116) Total Protein 6.7 g/dL (6.4-8.2) Albumin 2.3 g/dL (3.4-5.0) Albumin/Globulin Ratio 0.5 (1.0-1.7) Test 02/03/20 07:17 Glucose (Fingerstick) 280 mg/dL (70-99) Medications Current Medications Sodium Chloride 1,000 ml @ 100 mls/hr Q10H IV Last administered on 02/02/20at 21:54; Start 02/02/20 at 11:00 Vitals/I & O Vital Sign - Last 24 Hours 02/02/20 02/02/20 02/02/20 02/02/20 11:08 14:40 19:00 20:00 Temp 99.8 98.5 98.2 99.8 98.5 98.2 Pulse 92 72 84 Resp 16 17 18 B/P (MAP) 87/35 (52) 121/28 (59) 156/58 (90) Pulse Ox 100 99 100 O2 Delivery Room Air Room Air Room Air 02/02/20 02/02/20 02/03/20 02/03/20 21:53 23:00 03:00 07:40 Temp 98.8 99.9 99.9 98.8 99.9 99.9 Pulse 72 95 89 77 Resp 18 16 16 B/P (MAP) 121/28 143/50 (81) 148/36 (73) 126/31 (62) Pulse Ox 97 99 97 O2 Delivery Room Air Intake and Output 02/02/20 02/02/20 02/03/20 15:00 23:00 07:00 Intake Total 1000 ml 120 ml Balance 1000 ml 120 ml Justicifation of Admission Dx: Justifications for Admission: Justification of Admission Dx: Yes Sepsis: Altered Mental Status Altered Mental Status: Altered Mental Status (immune compramised,s/p kidney transplant.) Nutrition Consultation Dietary Evaluation: Recommendations by RD: Dietary education by RD, Increase Calorie Intake Comments: REC TFs via PEG per following: Glucerna 1.2@20 ml/hr, increase 10 ml q8 hrs as tolerated to goal rate 50 ml/hr w/100 ml water flushes q4 hrs or flushes per MD Continue w/pleasure feeds of dysphagia I/honey thick liquids per CHORAL DIRECTOR Expected Outcomes/Goals: New goal 01/26: PO intake to meet >75% est needs - not met, new goal established New goal 01/30: TF infusion + PO intake to meet >75% est needs Malnutrition Findings: Body Fat Depletion (Non Severe: Mild Depletion Weight Status: Appropriate AUGUSTO BRUNER MD Feb 03, 2020 09:56
[2020-02-03] MEDS ORDERED: CALCIUM GLUCONATE 1,000 MG/10 ML VIAL. IVP ONE (10:30)
[2020-02-03] MEDS ORDERED: INSULIN LISPRO 300 UNITS/3 ML VIAL. SQ ONE (10:30)
--- NOTE | 2020-02-03 10:38 | PDOC ---
STEVEN MCCRARY CHIEF GUARD 02/03/20 1038: SURGICAL PROGRESS NOTE Subjective family present does want g tube when stable Vital Signs Vital Signs Date Time Temp Pulse Resp B/P (MAP) Pulse Ox O2 Delivery O2 Flow Rate FiO2 02/03/20 07:40 99.9 77 16 126/31 (62) 97 Room Air 99.9 I&O Intake and Output 02/03/20 07:00 Intake Total 1120 ml Balance 1120 ml Intake Oral 120 ml IV Total 1000 ml # Voids 2 General: Cooperative Abdomen: Soft Labs Laboratory Tests Test 02/01/20 10:56 02/01/20 16:15 02/01/20 20:25 02/02/20 07:20 Glucose (Fingerstick) 108 mg/dL (70-99) 187 mg/dL (70-99) 139 mg/dL (70-99) 168 mg/dL (70-99) Test 02/02/20 11:24 02/02/20 16:18 02/02/20 21:26 02/03/20 05:55 Glucose (Fingerstick) 165 mg/dL (70-99) 219 mg/dL (70-99) 211 mg/dL (70-99) White Blood Count 20.9 x10^3/uL (4.0-11.0) Red Blood Count 4.37 x10^6/uL (3.50-5.40) Hemoglobin 11.2 g/dL (12.0-15.5) Hematocrit 35.1 % (36.0-47.0) Mean Corpuscular Volume 80 fL (79-100) Mean Corpuscular Hemoglobin 26 pg (25-35) Mean Corpuscular Hemoglobin Concent 32 g/dL (31-37) Red Cell Distribution Width 16.0 % (11.5-14.5) Platelet Count 259 x10^3/uL (140-400) Neutrophils (%) (Auto) 86 % (31-73) Lymphocytes (%) (Auto) 4 % (24-48) Monocytes (%) (Auto) 9 % (0-9) Eosinophils (%) (Auto) 0 % (0-3) Basophils (%) (Auto) 0 % (0-3) Neutrophils # (Auto) 18.1 x10^3/uL (1.8-7.7) Lymphocytes # (Auto) 0.9 x10^3/uL (1.0-4.8) Monocytes # (Auto) 1.9 x10^3/uL (0.0-1.1) Eosinophils # (Auto) 0.0 x10^3/uL (0.0-0.7) Basophils # (Auto) 0.0 x10^3/uL (0.0-0.2) Segmented Neutrophils % 89 % (35-66) Band Neutrophils % 1 % (0-9) Lymphocytes % 5 % (24-48) Monocytes % 5 % (0-10) Platelet Estimate Adequate (ADEQUATE) Large Platelets Occ Sodium Level 142 mmol/L (136-145) Potassium Level 6.2 mmol/L (3.5-5.1) Chloride Level 111 mmol/L (98-107) Carbon Dioxide Level 15 mmol/L (21-32) Anion Gap 16 (6-14) Blood Urea Nitrogen 90 mg/dL (7-20) Creatinine 2.3 mg/dL (0.6-1.0) Estimated GFR (Cockcroft-Gault) 25.7 BUN/Creatinine Ratio 39 (-20) Glucose Level 289 mg/dL (70-99) Calcium Level 10.4 mg/dL (8.5-10.1) Magnesium Level 2.5 mg/dL (1.8-2.4) Total Bilirubin 0.2 mg/dL (0.2-1.0) Aspartate Amino Transf (AST/SGOT) 28 U/L (15-37) Alanine Aminotransferase (ALT/SGPT) 23 U/L (14-59) Alkaline Phosphatase 88 U/L (46-116) Total Protein 6.7 g/dL (6.4-8.2) Albumin 2.3 g/dL (3.4-5.0) Albumin/Globulin Ratio 0.5 (1.0-1.7) Test 02/03/20 07:17 Glucose (Fingerstick) 280 mg/dL (70-99) Laboratory Tests Test 02/02/20 11:24 02/02/20 16:18 02/02/20 21:26 02/03/20 05:55 Glucose (Fingerstick) 165 mg/dL (70-99) 219 mg/dL (70-99) 211 mg/dL (70-99) White Blood Count 20.9 x10^3/uL (4.0-11.0) Red Blood Count 4.37 x10^6/uL (3.50-5.40) Hemoglobin 11.2 g/dL (12.0-15.5) Hematocrit 35.1 % (36.0-47.0) Mean Corpuscular Volume 80 fL (79-100) Mean Corpuscular Hemoglobin 26 pg (25-35) Mean Corpuscular Hemoglobin Concent 32 g/dL (31-37) Red Cell Distribution Width 16.0 % (11.5-14.5) Platelet Count 259 x10^3/uL (140-400) Neutrophils (%) (Auto) 86 % (31-73) Lymphocytes (%) (Auto) 4 % (24-48) Monocytes (%) (Auto) 9 % (0-9) Eosinophils (%) (Auto) 0 % (0-3) Basophils (%) (Auto) 0 % (0-3) Neutrophils # (Auto) 18.1 x10^3/uL (1.8-7.7) Lymphocytes # (Auto) 0.9 x10^3/uL (1.0-4.8) Monocytes # (Auto) 1.9 x10^3/uL (0.0-1.1) Eosinophils # (Auto) 0.0 x10^3/uL (0.0-0.7) Basophils # (Auto) 0.0 x10^3/uL (0.0-0.2) Segmented Neutrophils % 89 % (35-66) Band Neutrophils % 1 % (0-9) Lymphocytes % 5 % (24-48) Monocytes % 5 % (0-10) Platelet Estimate Adequate (ADEQUATE) Large Platelets Occ Sodium Level 142 mmol/L (136-145) Potassium Level 6.2 mmol/L (3.5-5.1) Chloride Level 111 mmol/L (98-107) Carbon Dioxide Level 15 mmol/L (21-32) Anion Gap 16 (6-14) Blood Urea Nitrogen 90 mg/dL (7-20) Creatinine 2.3 mg/dL (0.6-1.0) Estimated GFR (Cockcroft-Gault) 25.7 BUN/Creatinine Ratio 39 (6-20) Glucose Level 289 mg/dL (70-99) Calcium Level 10.4 mg/dL (8.5-10.1) Magnesium Level 2.5 mg/dL (1.8-2.4) Total Bilirubin 0.2 mg/dL (0.2-1.0) Aspartate Amino Transf (AST/SGOT) 28 U/L (15-37) Alanine Aminotransferase (ALT/SGPT) 23 U/L (14-59) Alkaline Phosphatase 88 U/L (46-116) Total Protein 6.7 g/dL (6.4-8.2) Albumin 2.3 g/dL (3.4-5.0) Albumin/Globulin Ratio 0.5 (1.0-1.7) Test 02/03/20 07:17 Glucose (Fingerstick) 280 mg/dL (70-99) Problem List Problems Medical Problems: (1) Cough Status: Acute (2) Left-sided weakness Status: Acute Assessment/Plan elevated WBC, low grade fevers g tube once improved Justicifation of Admission Dx: Justifications for Admission: Justification of Admission Dx: Yes Sepsis: Altered Mental Status Altered Mental Status: Altered Mental Status (immune compramised,s/p kidney transplant.) MADI CHAVEZ MD 02/03/20 1235: SURGICAL PROGRESS NOTE Assessment/Plan Agree with above STEVEN MCCRARY CHIEF GUARD Feb 03, 2020 10:38 MADI CHAVEZ MD Feb 03, 2020 12:35
[2020-02-03] MEDS ORDERED: DEXTROSE 50% 25 GM / 50ML DISP.SYRIN. IV ONE (10:45)
--- NOTE | 2020-02-03 10:46 | PDOC ---
Subjective: Subjective: Family wants feeding tube. Objective: Objective: Tmax 99.9 Vital Signs: Vital Signs Date Time Temp Pulse Resp B/P (MAP) Pulse Ox O2 Delivery O2 Flow Rate FiO2 02/03/20 07:40 99.9 77 16 126/31 (62) 97 Room Air 99.9 Labs: Laboratory Tests Test 02/02/20 11:24 02/02/20 16:18 02/02/20 21:26 02/03/20 07:17 Glucose (Fingerstick) 165 mg/dL (70-99) 219 mg/dL (70-99) 211 mg/dL (70-99) 280 mg/dL (70-99) Imaging: CXR 02/02 pending EGD 01/30 E--Normal G--some retained vegetable material/fluid. Normal otherwise. D--Normal bulb. --Unable to locate a window to place g-tube after long examination. Deferred. IMP: Normal exam save some retained gastric material. Unable to locate safe window for PEG placement. REC: Consider surgical opinion for gastrostomy. PE: GEN: NAD - daughter and granddaughter present, swabbing her mouth LUNGS: clear anteriorly, room air HEART: RRR ABD: non-distended NEURO/PSYCH:awake, does not verbalize to me A/P: Encephalopathy, dysphagia/decreased PO intake -- Unable to place PEG tube. Surgery following for possible G tube. Justicifation of Admission Dx: Justifications for Admission: Justification of Admission Dx: Yes Sepsis: Altered Mental Status Altered Mental Status: Altered Mental Status (immune compramised,s/p kidney transplant.) EMMANUEL MOYA Feb 03, 2020 10:46
[2020-02-03] MEDS: IV NORMAL SALINE 1000ML BAG 1,000 ML IV SCH ×2 (10:48→20:07)
[2020-02-03] MEDS: FOLIC/VIT B COMP W-C (RENAL) TABLET. PO SCH (10:48)
[2020-02-03] MEDS: predniSONE 5 MG TABLET PO SCH (10:48)
[2020-02-03] MEDS: FLUCONAZOLE 100 MG TABLET. PO SCH (10:49)
[2020-02-03] MEDS: levETIRAcetam 500 MG TABLET PO SCH ×2 (10:49→20:09)
[2020-02-03] MEDS: ASPIRIN ENTERIC COATED 325 MG TABLET.DR. PO SCH (10:49)
[2020-02-03] MEDS: hydrALAZINE 25 MG TABLET PO SCH ×2 (10:49→20:09)
[2020-02-03] MEDS: TACROLIMUS 0.5 MG CAPSULE PO SCH ×2 (10:49→20:10)
--- NOTE | 2020-02-03 10:51 | RAD ---
PORTABLE CHEST 1V History: Reason: letty wbc ?pneumonia / Spl. Instructions: / History: Comparison: January 15, 2020. Findings: Multifocal pulmonary opacities most prominent within the lower lungs. No pleural effusion. No pneumothorax. Unchanged heart size. Prior median sternotomy. Impression: 1. Multifocal pulmonary opacities, increased compared to prior. Electronically signed by: Israel Broussard DO (02/03/2020 10:48 AM) [id number]
--- NOTE | 2020-02-03 11:35 | PDOC ---
Renal-Progress Notes Subjective Notes Notes NO NEW COMPLAINTS, CONFUSED, FAMILY AT BEDSIDE History of Present Illness Hx of present illness NOT MUCH BETTER Vitals Vitals Vital Signs Date Time Temp Pulse Resp B/P (MAP) Pulse Ox O2 Delivery O2 Flow Rate FiO2 02/03/20 10:49 77 126/31 02/03/20 07:40 99.9 16 97 Room Air 99.9 Weight Weight [ ] I.O. Intake and Output Intake and Output 02/03/20 07:00 Intake Total 1120 ml Balance 1120 ml Intake Oral 120 ml IV Total 1000 ml # Voids 2 Labs Labs Laboratory Tests Test 02/02/20 16:18 02/02/20 21:26 02/03/20 05:55 02/03/20 07:17 Glucose (Fingerstick) 219 mg/dL (70-99) 211 mg/dL (70-99) 280 mg/dL (70-99) White Blood Count 20.9 x10^3/uL (4.0-11.0) Red Blood Count 4.37 x10^6/uL (3.50-5.40) Hemoglobin 11.2 g/dL (12.0-15.5) Hematocrit 35.1 % (36.0-47.0) Mean Corpuscular Volume 80 fL (79-100) Mean Corpuscular Hemoglobin 26 pg (25-35) Mean Corpuscular Hemoglobin Concent 32 g/dL (31-37) Red Cell Distribution Width 16.0 % (11.5-14.5) Platelet Count 259 x10^3/uL (140-400) Neutrophils (%) (Auto) 86 % (31-73) Lymphocytes (%) (Auto) 4 % (24-48) Monocytes (%) (Auto) 9 % (0-9) Eosinophils (%) (Auto) 0 % (0-3) Basophils (%) (Auto) 0 % (0-3) Neutrophils # (Auto) 18.1 x10^3/uL (1.8-7.7) Lymphocytes # (Auto) 0.9 x10^3/uL (1.0-4.8) Monocytes # (Auto) 1.9 x10^3/uL (0.0-1.1) Eosinophils # (Auto) 0.0 x10^3/uL (0.0-0.7) Basophils # (Auto) 0.0 x10^3/uL (0.0-0.2) Segmented Neutrophils % 89 % (35-66) Band Neutrophils % 1 % (0-9) Lymphocytes % 5 % (24-48) Monocytes % 5 % (0-10) Platelet Estimate Adequate (ADEQUATE) Large Platelets Occ Sodium Level 142 mmol/L (136-145) Potassium Level 6.2 mmol/L (3.5-5.1) Chloride Level 111 mmol/L (98-107) Carbon Dioxide Level 15 mmol/L (21-32) Anion Gap 16 (6-14) Blood Urea Nitrogen 90 mg/dL (7-20) Creatinine 2.3 mg/dL (0.6-1.0) Estimated GFR (Cockcroft-Gault) 25.7 BUN/Creatinine Ratio 39 (6-20) Glucose Level 289 mg/dL (70-99) Calcium Level 10.4 mg/dL (8.5-10.1) Phosphorus Level 5.1 mg/dL (2.6-4.7) Magnesium Level 2.5 mg/dL (1.8-2.4) Total Bilirubin 0.2 mg/dL (0.2-1.0) Aspartate Amino Transf (AST/SGOT) 28 U/L (15-37) Alanine Aminotransferase (ALT/SGPT) 23 U/L (14-59) Alkaline Phosphatase 88 U/L (46-116) Total Protein 6.7 g/dL (6.4-8.2) Albumin 2.3 g/dL (3.4-5.0) Albumin/Globulin Ratio 0.5 (1.0-1.7) Review of Systems Constitutional: yes: other (CONFUSED) Physical Exam General Appearance: no apparent distress Skin: warm Respiratory: bilateral CTA Heart: S1S2 Abdomen: soft, bowel sounds present Genitourinary: bladder flat Extremities: pulses present Neurology: confused Assessment Assessment IMP HYPERKALEMIA HYPOTENSION HX OF RENAL TX CAN - CKD - CR STABLE AT 1.4 HX OF CRYTOCOCCUS HX OF EPILEPSY ENCEPHALOPATHY CVA PLAN STOP HER QUOC-I INCREASE HYDRATION START PPN POSSIBLE G TUBE CONT SUPPORTIVE CARE CONT PREDNISONE AND PROGRAF TX HIGH K WITH INSULIN, D50 AND CA GLUCONATE UPDATED FAMILY WILL FOLLOW MO RODRIGUEZ MD Feb 03, 2020 11:35
[2020-02-03 11:45] VITALS: BP 176/69
[2020-02-03] MEDS: PIPERACILLIN/TAZOBACTAM 2.25 GM in IV NORMAL SALINE 50ML 50 ML IV SCH ×2 (13:55→18:14)
[2020-02-03] MEDS ORDERED: LIDOCAINE 1%/EPI 1:100,000 20 ML VIAL. ONE (14:52)
[2020-02-03] MEDS ORDERED: LIDOCAINE 1%/EPI 1:100,000 20 ML VIAL. INJ ONE (15:15)
--- NOTE | 2020-02-03 15:33 | NUR ---
Patient brought to vascular lab for power port placement in right chest. Dr. Bloom called 6th floor to ask nurse if patient has been minimally responsive. Patient came to vascular lab and didn't respond to sternal rub, blood sugar [id number]. Pupils are pinpoint. Nurse returned call from Dr. Bloom and stated that the patient has been in and out of responsiveness today. Patient did grimace when placed on procedure table and when numbed up with Lidocaine. Vitals are HR=72, 97% sat on room air, and YU=019/63, will continue to monitor.
[2020-02-03] MEDS ORDERED: HEPARIN PF 500 UNIT/5 ML DISP.SYRIN. IVP ONE ×2 (15:39→15:45)
--- NOTE | 2020-02-03 15:57 | RAD ---
Procedure: Ultrasound and fluoroscopically guided placement of tunnel central venous catheter. 02/03/2020 1:53 PM Clinical Indication: tpn and antibiotics Fluoroscopy time: 0.5 minutes Dose area product: 1 Gycm2 Consent: The procedure was explained in its entirety to the patient or the patients designated business services representative by a member of the treatment team, including a discussion of the risks, benefits and commonly accepted alternatives to the procedure, as well as the expected consequences of no therapy whatsoever. Discussion of the risks included, but was not limited to, those that are most frequent and those that are rare but possibly severe or life-threatening, as well as the possibility of unforeseen complications. Sterility: All elements of maximal sterile barrier technique including the use of a cap, mask, sterile gown, sterile gloves, large sterile sheet, appropriate hand hygiene, and 2% chlorhexidine for cutaneous antisepsis (or acceptable alternative antiseptic per current guidelines) were followed for this procedure. Technique and Findings: Following informed consent, the patient was prepped and draped in the usual sterile fashion. Ultrasound interrogation of the right neck revealed patency and compressibility of the right internal jugular vein. A 21-gauge micropuncture was then used to gain access to this vein under ultrasound guidance. A hard copy ultrasound image was recorded. The needle was exchanged over a wire for a sheath. A small incision was made several centimeters inferior to the right clavicle. A power line was trimmed to length, advanced from the small skin incision to the venotomy site, and then advanced through a peel-away sheath to the level of the cavoatrial junction. Catheter was found to flush and aspirate normally. Catheter was secured in place with 2-0 Prolene suture and a sterile dressing was applied. Catheter was packed with heparin per protocol. The neck dermatotomy was closed with Dermabond. No immediate complications were identified. Impression: Successful ultrasound and fluoroscopically guided placement of a right internal jugular tunneled central venous catheter
[2020-02-03 16:02] VITALS: BP 130/53
[2020-02-03] MEDS: TPN PER PHARMACY MC PRN (16:03)
--- NOTE | 2020-02-03 16:04 | NUR ---
Pharmacy TPN Dosing Note S: DIANA WATERS is a 64 year old F Currently receiving Central Continuous TPN started 02/03/20 B:Pertinent PMH: failed PEG tube insertion Height: 5 feet, 6 inches Weight: 68.5 kg Current diet: NPO LABS: Sodium: 142 Potassium: 6.2 Chloride: 111 Calcium: 10.4 Corrected Calcium: 11.76 Magnesium: 2.5 CO2: 111 SCr: 2.3 Glucose: 289, 280, 374 Albumin: 2.3 AST: 28 ALT: 23 TPN FORMULA: TPN TYPE: Central Continuous AMINO ACIDS: 60 gm DEXTROSE: 195 gm LIPIDS: 20 gm SODIUM CHLORIDE: 90 mEq MAGNESIUM: 5 mEq INSULIN: 10 units MULTIPLE VITAMIN: 10 ml TRACE ELEMENTS: 1 ml TPN PLAN: -Failure to insert PEG tube, start TPN. Macros per dietitian. -Serum potassium and phos high - start TPN with no KCl or KPhos. -Serum mag slightly elevated, start TPN with mag sulfate 5 mEq/day. -Corrected calcium elevated, no calcium in TPN. -Blood glucose significantly elevated, on Lantus insulin. Start TPN with 10 units of regular insulin. -BMP, mag, phos, TG tomorrow. R: Begin TPN 63 ml/hr and above formula. Will monitor electrolytes, glucose, and tolerance to TPN. [facility], 02/03/20 [id number]
[2020-02-03 19:00] VITALS: BP 136/50
[2020-02-03] MEDS: INSULIN GLARGINE SYRINGE. SQ SCH (20:15)
[2020-02-03] MEDS ORDERED: [UNRECOGNIZED DRUG - OTHER] IV SCH ×8 (22:00)
[2020-02-03] MEDS ORDERED: TOTAL PARENTERAL NUTRITION IV SCH ×8 (22:00)
[2020-02-03] MEDS ORDERED: AMINO ACID IV SCH ×8 (22:00)
[2020-02-03] MEDS ORDERED: DEXTROSE 70% IV SCH ×8 (22:00)
[2020-02-03 23:00] VITALS: BP 164/76
[2020-02-04] MEDS: PIPERACILLIN/TAZOBACTAM 2.25 GM in IV NORMAL SALINE 50ML 50 ML IV SCH ×5 (00:25→23:43)
[2020-02-04 03:00] VITALS: BP 197/75
[2020-02-04] MEDS: IV NORMAL SALINE 1000ML BAG 1,000 ML IV SCH ×3 (04:09→23:40)
[2020-02-04] MEDS: ENALAPRILAT 1.25 MG/ML VIAL. IVP PRN ×2 (04:10→20:01)
[2020-02-04 04:43] LABS: BASO % 0 % (0-3); EOS % 0 % (0-3); HEMATOCRIT 37.9 % (36.0-47.0); HEMOGLOBIN 11.8 g/dL (12.0-15.5); LYMPH # 0.5 x10^3/uL (1.0-4.8); LYMPH % 4 % (24-48); MEAN CORPUSCULAR HEMOGLOBIN 26 pg (25-35); MEAN CORPUSCULAR HGB CONC 31 g/dL (31-37); MEAN CORPUSCULAR VOLUME 82 fL (79-100); MONO # 1.2 x10^3/uL (0.0-1.1); MONO % 8 % (0-9); NEUT # 12.3 x10^3/uL (1.8-7.7); NEUT % 88 % (31-73); PLATELET COUNT 248 x10^3/uL (140-400); RED BLOOD COUNT 4.61 x10^6/uL (3.50-5.40); RED CELL DISTRIBUTION WIDTH 16.3 % (11.5-14.5)
[2020-02-04 05:12] LABS: ALBUMIN 2.3 g/dL (3.4-5.0); ALBUMIN/GLOBULIN RATIO 0.6 (1.0-1.7); CREATININE 1.8 mg/dL (0.6-1.0); GFR 34.1; MAGNESIUM 2.2 mg/dL (1.8-2.4); PHOSPHORUS 2.4 mg/dL (2.6-4.7); POTASSIUM 5.4 mmol/L (3.5-5.1); TOTAL BILIRUBIN 0.2 mg/dL (0.2-1.0); TOTAL PROTEIN 6.3 g/dL (6.4-8.2)
[2020-02-04 07:20] VITALS: BP 210/81
[2020-02-04] MEDS: INSULIN LISPRO 300 UNITS/3 ML VIAL. SQ SCH ×2 (08:00→14:43)
[2020-02-04] MEDS: ASPIRIN ENTERIC COATED 325 MG TABLET.DR. PO SCH (08:00)
[2020-02-04] MEDS ORDERED: DEXTROSE 50% 25 GM / 50ML DISP.SYRIN. IV PRN (08:30)
--- NOTE | 2020-02-04 08:45 | NUR ---
+ BC reported to DOMINIC De Guzman
[2020-02-04] MEDS: FLUCONAZOLE 100 MG TABLET. PO SCH (09:00)
[2020-02-04] MEDS: TACROLIMUS 0.5 MG CAPSULE PO SCH ×2 (09:00→20:03)
[2020-02-04] MEDS: hydrALAZINE 25 MG TABLET PO SCH ×2 (09:00→20:03)
[2020-02-04] MEDS: FOLIC/VIT B COMP W-C (RENAL) TABLET. PO SCH (09:00)
[2020-02-04] MEDS: levETIRAcetam 500 MG TABLET PO SCH (09:00)
[2020-02-04] MEDS: predniSONE 5 MG TABLET PO SCH (09:00)
--- NOTE | 2020-02-04 09:04 | PDOC ---
Infectious Disease Note Subjective: Subjective Patient lethargic Opens eyes but does not respond to any question Fever improving T Max 99.9 Discussed with RN Systolic blood pressure greater than 200 mmHg ROS: ROS Unable to obtain Vital Signs: Vital Signs Vital Signs Date Time Temp Pulse Resp B/P (MAP) Pulse Ox O2 Delivery O2 Flow Rate FiO2 02/04/20 07:20 97.7 102 16 210/81 (124) 96 Room Air 97.7 Physical Exam: PHYSICAL EXAM GENERAL: Patient lying in bedm lethargic, arousable but does not answer any questions HEENT: Pupils small and equal NECK: Supple LUNGS: Creased breath sound at the bases no accessory muscle use HEART: S1, S2. regular ABDOMEN: Soft, no grimacing on deep palpation , no guarding or rigidity no [place] EXTREMITIES: No edema, no cyanosis, no clubbing. Previous amputation site, left great and second toe scar intact. No draining wounds. SKIN: warm to touch. No generalized rash. 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, not answer any question PIV looks ok Medications: Inpatient Meds: Current Medications Medications (Trade) Dose Ordered Sig/Te Start Time Stop Time Status Last Admin Dose Admin Acetaminophen (Tylenol Supp) 650 mg PRN Q4HRS PRN 01/24/20 08:30 Acetaminophen (Tylenol) 1,000 mg PRN Q8HRS PRN 01/24/20 10:15 Amino Acids/ Glycerin/ Electrolytes 1,000 ml @ 75 mls/hr [id number] 01/24/20 13:45 01/30/20 10:00 DC 01/29/20 15:50 75 MLS/HR Aspirin (Aspirin Rectal Supp) 300 mg PRN DAILY PRN 01/24/20 08:30 Aspirin (Ecotrin) 81 mg DAILY 01/25/20 09:00 UNV Calcium Gluconate (Calcium Gluconate) 1,000 mg 1X ONCE 02/03/20 10:30 02/03/20 10:31 DC 02/03/20 10:49 1,000 MG Cefazolin Sodium (Ancef) 1 gm 1X ONCE 01/31/20 12:00 01/31/20 12:01 DC Clonidine HCl (Catapres Tts-3) 1 patch 1X ONCE 01/24/20 05:30 01/24/20 05:31 DC Clonidine HCl (Catapres) 0.2 mg 1X ONCE 01/23/20 17:30 01/23/20 17:31 DC 01/23/20 17:38 0.2 MG Dextrose (Dextrose 50%-Water Syringe) 12.5 gm PRN Q15MIN PRN 02/04/20 08:30 Dextrose/Sodium Chloride 1,000 ml @ 100 mls/hr 1X ONCE 01/23/20 17:45 01/24/20 03:44 DC 01/23/20 19:24 100 MLS/HR Enalaprilat (Vasotec Inj) 1.25 mg PRN Q6HRS PRN 01/25/20 12:00 02/04/20 04:10 1.25 MG Enoxaparin Sodium (Lovenox 40mg Syringe) 40 mg Q24H 01/24/20 11:00 01/26/20 12:24 DC 01/26/20 10:12 40 MG Fluconazole (Diflucan) 200 mg DAILY 01/24/20 11:00 02/03/20 10:49 200 MG Heparin Sodium (Porcine) (Hep Lock Adult) 500 unit 1X ONCE 02/03/20 15:45 02/03/20 15:49 DC 02/03/20 15:45 500 UNIT Hydralazine HCl (Apresoline Inj) 10 mg PRN Q4HRS PRN 01/31/20 09:45 01/31/20 10:55 10 MG Hydralazine HCl (Apresoline) 25 mg BID 01/24/20 21:00 02/03/20 10:49 25 MG Info (Tpn Per Pharmacy) 1 each PRN DAILY PRN 02/03/20 10:00 02/03/20 16:03 1 EACH Insulin Glargine (Lantus Syringe) 18 unit QHS 01/24/20 21:00 02/03/20 20:15 18 UNIT Insulin Human Lispro (HumaLOG) 0-9 UNITS TIDWMEALS 02/04/20 12:00 Labetalol HCl (Normodyne Iv Push) 20 mg PRN Q4HRS PRN 01/24/20 04:15 01/26/20 00:17 20 MG Levetiracetam (Keppra) 500 mg BID 01/27/20 09:00 02/03/20 10:49 500 MG Levetiracetam 500 mg/Dextrose 105 ml @ 420 mls/hr Q12HR 01/24/20 13:45 01/27/20 08:47 DC 01/26/20 21:14 420 MLS/HR Lidocaine/ Epinephrine (LIDOCAINE 1%-EPI 1:100,000 Multi-Dose) 20 ml 1X ONCE 02/03/20 15:15 02/03/20 15:16 DC 02/03/20 15:35 6 ML Linezolid/Dextrose 300 ml @ 300 mls/hr Q12HR 02/03/20 11:00 02/03/20 20:08 300 MLS/HR Lisinopril (Prinivil) 20 mg DAILY 01/24/20 12:00 02/02/20 11:51 DC 02/01/20 10:37 20 MG Lorazepam (Ativan Inj) 0.5 mg PRN Q4HRS PRN 01/24/20 16:45 01/25/20 06:34 0.5 MG Morphine Sulfate (Morphine Sulfate) 2 mg PRN Q2HR PRN 01/23/20 17:45 01/24/20 17:44 DC Non-Formulary Medication 0.5 ea BID 01/24/20 15:00 01/27/20 04:41 DC 01/24/20 21:12 0.5 EA Olanzapine (ZyPREXA) 10 mg QHS 01/24/20 21:00 01/27/20 09:52 DC 01/26/20 21:14 10 MG Ondansetron HCl (Zofran) 4 mg PRN Q8HRS PRN 01/23/20 17:45 01/24/20 17:44 DC Pharmacy Consult (C.diff Med Screen By Rx) 1 each 1X ONCE 01/24/20 09:00 01/24/20 09:01 DC 01/24/20 08:26 1 EACH Piperacillin Sod/ Tazobactam Sod (Zosyn Per Pharmacy) 1 each PRN DAILY PRN 01/24/20 04:30 01/24/20 09:32 DC Piperacillin Sod/ Tazobactam Sod 2.25 gm/Sodium Chloride 50 ml @ 100 mls/hr Q6HRS 02/03/20 12:00 02/04/20 05:57 100 MLS/HR Piperacillin Sod/ Tazobactam Sod 3.375 gm/Sodium Chloride 50 ml @ 100 mls/hr Q6H 01/24/20 05:00 01/24/20 09:30 DC 01/24/20 05:06 100 MLS/HR Prednisone (Prednisone) 5 mg DAILY 01/27/20 09:00 02/03/20 10:48 5 MG Propofol (Diprivan) 200 mg STK-MED ONCE 01/31/20 13:08 01/31/20 13:09 DC Quetiapine Fumarate (SEROquel) 25 mg BID 01/24/20 12:00 01/27/20 09:52 DC 01/26/20 21:14 25 MG Ringer's Solution 1,000 ml @ 75 mls/hr 1X ONCE 01/31/20 08:15 01/31/20 21:34 DC Sodium Chloride 90 meq/Magnesium Sulfate 5 meq/ Multivitamins 10 ml/Chromium/ Copper/Manganese/ Seleni/Zn 1 ml/ Insulin Human Regular 10 unit/ Total Parenteral Nutrition/Amino Acids/Dextrose/ Fat Emulsion Intravenous 1,512 ml @ 63 mls/hr TPN CONT 02/03/20 22:00 02/04/20 21:59 02/03/20 21:49 63 MLS/HR Tacrolimus (Prograf Oral Susp) 0.5 mg STK-MED ONCE 01/24/20 21:00 01/27/20 14:30 DC Tacrolimus (Prograf) 0.5 mg BID 01/24/20 12:00 02/03/20 10:49 0.5 MG Trazodone HCl (Desyrel) 50 mg QHS 01/24/20 21:00 01/27/20 09:52 DC 01/26/20 21:14 50 MG Vitamin B Complex/ Vitamin C (Vicki-Stacey) 1 tab DAILY 01/25/20 09:00 02/03/20 10:48 1 TAB Labs: Lab Laboratory Tests Test 02/03/20 12:46 02/03/20 15:12 02/03/20 16:48 02/03/20 19:41 Glucose (Fingerstick) 347 mg/dL (70-99) 328 mg/dL (70-99) 304 mg/dL (70-99) 327 mg/dL (70-99) Test 02/04/20 03:25 02/04/20 07:27 White Blood Count 14.0 x10^3/uL (4.0-11.0) Red Blood Count 4.61 x10^6/uL (3.50-5.40) Hemoglobin 11.8 g/dL (12.0-15.5) Hematocrit 37.9 % (36.0-47.0) Mean Corpuscular Volume 82 fL (79-100) Mean Corpuscular Hemoglobin 26 pg (25-35) Mean Corpuscular Hemoglobin Concent 31 g/dL (31-37) Red Cell Distribution Width 16.3 % (11.5-14.5) Platelet Count 248 x10^3/uL (140-400) Neutrophils (%) (Auto) 88 % (31-73) Lymphocytes (%) (Auto) 4 % (24-48) Monocytes (%) (Auto) 8 % (0-9) Eosinophils (%) (Auto) 0 % (0-3) Basophils (%) (Auto) 0 % (0-3) Neutrophils # (Auto) 12.3 x10^3/uL (1.8-7.7) Lymphocytes # (Auto) 0.5 x10^3/uL (1.0-4.8) Monocytes # (Auto) 1.2 x10^3/uL (0.0-1.1) Eosinophils # (Auto) 0.0 x10^3/uL (0.0-0.7) Basophils # (Auto) 0.0 x10^3/uL (0.0-0.2) Sodium Level 140 mmol/L (136-145) Potassium Level 5.4 mmol/L (3.5-5.1) Chloride Level 109 mmol/L (98-107) Carbon Dioxide Level 18 mmol/L (21-32) Anion Gap 13 (6-14) Blood Urea Nitrogen 70 mg/dL (7-20) Creatinine 1.8 mg/dL (0.6-1.0) Estimated GFR (Cockcroft-Gault) 34.1 BUN/Creatinine Ratio 39 (6-20) Glucose Level 483 mg/dL (70-99) Calcium Level 10.0 mg/dL (8.5-10.1) Phosphorus Level 2.4 mg/dL (2.6-4.7) Magnesium Level 2.2 mg/dL (1.8-2.4) Total Bilirubin 0.2 mg/dL (0.2-1.0) Aspartate Amino Transf (AST/SGOT) 21 U/L (15-37) Alanine Aminotransferase (ALT/SGPT) 26 U/L (14-59) Alkaline Phosphatase 93 U/L (46-116) Total Protein 6.3 g/dL (6.4-8.2) Albumin 2.3 g/dL (3.4-5.0) Albumin/Globulin Ratio 0.6 (1.0-1.7) Triglycerides Level 112 mg/dL (0-150) Glucose (Fingerstick) 526 mg/dL (70-99) Micro Cultures negative Cryptococcal antigen in the blood 1 is to 40 CSF unremarkable CSF Fungal cults cancelled Objective: Assessment: Gram negative sepsis 02/02 2 out of 4 bottles, so unclear Leucocytosis improved Low-grade fever, source likely from gram-negative sepsis Hypertensive urgency Encephalopathy. History of epilepsy. Diabetes with peripheral neuropathy. h/o disseminated cryptococcus, on fluconazole. Gastroesophageal reflux disease.t. Peripheral arterial disease. Chronic kidney disease, status post renal transplant. Immunosuppression Coronary artery disease. COVID-19 neg, 01/23 Encephalopathy improved Plan: Plan of Care Continue Zosyn 02/[address] abdomen and pelvis without Follow-up MRI of the brain Continue chronic fluconazole treatment maintain aspiration precautions Follow-up labs and cultures, Follow-up UA and urine culture, still pending F/U GNR in blood culture Supportive care Prognosis poor Discussed with LINDY OCASIO MD Feb 04, 2020 09:04
--- NOTE | 2020-02-04 09:46 | PDOC ---
PROGRESS NOTES Subjective Subjective awake ,tired today Objective Objective Vital Signs Date Time Temp Pulse Resp B/P (MAP) Pulse Ox O2 Delivery O2 Flow Rate FiO2 02/04/20 07:20 97.7 102 16 210/81 (124) 96 Room Air 97.7 Intake and Output 02/04/20 07:00 Intake Total 170 ml Balance 170 ml Intake Oral 170 ml # Voids 1 Physical Exam Abdomen: Soft Heart: Regular rate Extremities: No clubbing, No cyanosis General: Cooperative HEENT: Atraumatic Lungs: Clear to auscultation MUSCULOSKELETAL: No deformity, No swelling Neuro: Other (CONFUSED, lethargic) Skin: No rashes, No breakdown Diagnosis Problem List Problems Medical Problems: (1) Cough Status: Acute (2) Left-sided weakness Status: Acute Assessment Assessment Problems Medical Problems: (1) Cough Status: Acute (2) Left-sided weakness Status: Acute sepsis , gram neg bacteremia,positive blood c/s 2/4 bottles high sugars due to TPN Metabolic Encephalopathy. Brain MRI neg acute findings , old CVA History of epilepsy. Diabetes with peripheral neuropathy. h/o disseminated cryptococcus, on fluconazole. Gastroesophageal reflux disease. History of kidney transplant. Peripheral arterial disease. Chronic kidney disease, status post renal transplant. Coronary artery disease.s/p cabg COVID-19 neg, 01/23 Plan Plan of Care: positive blood c/s 2/4 gram neg, urine c/s cxr infiltrates wbc 20 down to 14 bun 99/cr 2.9 down to 70 /1.9 central line placed TPN started iv Zosyn + zosyn for pneumonia monitor kidney function not stable for feeding tube surgery Plan Plan of Care Problems Medical Problems: (1) Cough Status: Acute (2) Left-sided weakness Status: Acute Comment Review of Relevant I have reviewed the following items warner (where applicable) has been applied. Labs Laboratory Tests Test 02/03/20 12:46 02/03/20 15:12 02/03/20 16:48 02/03/20 19:41 Glucose (Fingerstick) 347 mg/dL (70-99) 328 mg/dL (70-99) 304 mg/dL (70-99) 327 mg/dL (70-99) Test 02/04/20 03:25 02/04/20 07:27 02/04/20 09:15 White Blood Count 14.0 x10^3/uL (4.0-11.0) Red Blood Count 4.61 x10^6/uL (3.50-5.40) Hemoglobin 11.8 g/dL (12.0-15.5) Hematocrit 37.9 % (36.0-47.0) Mean Corpuscular Volume 82 fL (79-100) Mean Corpuscular Hemoglobin 26 pg (25-35) Mean Corpuscular Hemoglobin Concent 31 g/dL (31-37) Red Cell Distribution Width 16.3 % (11.5-14.5) Platelet Count 248 x10^3/uL (140-400) Neutrophils (%) (Auto) 88 % (31-73) Lymphocytes (%) (Auto) 4 % (24-48) Monocytes (%) (Auto) 8 % (0-9) Eosinophils (%) (Auto) 0 % (0-3) Basophils (%) (Auto) 0 % (0-3) Neutrophils # (Auto) 12.3 x10^3/uL (1.8-7.7) Lymphocytes # (Auto) 0.5 x10^3/uL (1.0-4.8) Monocytes # (Auto) 1.2 x10^3/uL (0.0-1.1) Eosinophils # (Auto) 0.0 x10^3/uL (0.0-0.7) Basophils # (Auto) 0.0 x10^3/uL (0.0-0.2) Sodium Level 140 mmol/L (136-145) Potassium Level 5.4 mmol/L (3.5-5.1) Chloride Level 109 mmol/L (98-107) Carbon Dioxide Level 18 mmol/L (21-32) Anion Gap 13 (6-14) Blood Urea Nitrogen 70 mg/dL (7-20) Creatinine 1.8 mg/dL (0.6-1.0) Estimated GFR (Cockcroft-Gault) 34.1 BUN/Creatinine Ratio 39 (6-20) Glucose Level 483 mg/dL (70-99) Calcium Level 10.0 mg/dL (8.5-10.1) Phosphorus Level 2.4 mg/dL (2.6-4.7) Magnesium Level 2.2 mg/dL (1.8-2.4) Total Bilirubin 0.2 mg/dL (0.2-1.0) Aspartate Amino Transf (AST/SGOT) 21 U/L (15-37) Alanine Aminotransferase (ALT/SGPT) 26 U/L (14-59) Alkaline Phosphatase 93 U/L (46-116) Total Protein 6.3 g/dL (6.4-8.2) Albumin 2.3 g/dL (3.4-5.0) Albumin/Globulin Ratio 0.6 (1.0-1.7) Triglycerides Level 112 mg/dL (0-150) Glucose (Fingerstick) 526 mg/dL (70-99) 514 mg/dL (70-99) Microbiology 02/03/20 Blood Culture - Final, Complete Medications Current Medications Calcium Gluconate (Calcium Gluconate) 1,000 mg 1X ONCE IVP Last administered on 02/03/20at 10:49; Start 02/03/20 at 10:30; Stop 02/03/20 at 10:31; Status DC Dextrose (Dextrose 50%-Water Syringe) 12.5 gm PRN Q15MIN PRN IV SEE COMMENTS; Start 02/04/20 at 08:30 Dextrose (Dextrose 50%-Water Syringe) 25 gm 1X ONCE IV Last administered on 02/03/20at 10:49; Start 02/03/20 at 10:45; Stop 02/03/20 at 10:47; Status DC Heparin Sodium (Porcine) (Hep Lock Adult) 500 unit 1X ONCE IVP Last administered on 02/03/20at 15:45; Start 02/03/20 at 15:45; Stop 02/03/20 at 15:49; Status DC Heparin Sodium (Porcine) (Hep Lock Adult) 500 unit STK-MED ONCE IVP ; Start 02/03/20 at 15:39; Stop 02/03/20 at 15:39; Status DC Info (Tpn Per Pharmacy) 1 each PRN DAILY PRN MC SEE COMMENTS Last administered on 02/03/20at 16:03; Start 02/03/20 at 10:00 Insulin Human Lispro (HumaLOG) 0-9 UNITS TIDWMEALS SQ ; Start 02/04/20 at 12:00 Insulin Human Lispro (HumaLOG) 10 units 1X ONCE SQ Last administered on 02/03/20at 11:10; Start 02/03/20 at 10:30; Stop 02/03/20 at 10:31; Status DC Insulin Human Lispro (HumaLOG) 15 units 1X ONCE SQ Last administered on 02/04/20at 08:40; Start 02/04/20 at 12:00; Stop 02/04/20 at 12:01 Lidocaine/ Epinephrine (LIDOCAINE 1%-EPI 1:100,000 Multi-Dose) 20 ml 1X ONCE INJ Last administered on 02/03/20at 15:35; Start 02/03/20 at 15:15; Stop 02/03/20 at 15:16; Status DC Lidocaine/ Epinephrine (LIDOCAINE 1%-EPI 1:100,000 Multi-Dose) 20 ml STK-MED ONCE .ROUTE ; Start 02/03/20 at 14:52; Stop 02/03/20 at 14:52; Status DC Linezolid/Dextrose 300 ml @ 300 mls/hr Q12HR IV Last administered on 02/03/20at 20:08; Start 02/03/20 at 11:00 Piperacillin Sod/ Tazobactam Sod 2.25 gm/Sodium Chloride 50 ml @ 100 mls/hr Q6HRS IV Last administered on 02/04/20at 05:57; Start 02/03/20 at 12:00 Sodium Chloride 90 meq/Magnesium Sulfate 5 meq/ Multivitamins 10 ml/Chromium/ Copper/Manganese/ Seleni/Zn 1 ml/ Insulin Human Regular 10 unit/ Total Parenteral Nutrition/Amino Acids/Dextrose/ Fat Emulsion Intravenous 1,512 ml @ 63 mls/hr TPN CONT IV Last administered on 02/03/20at 21:49; Start 02/03/20 at 22:00; Stop 02/04/20 at 21:59 Vitals/I & O Vital Sign - Last 24 Hours 02/03/20 02/03/20 02/03/20 02/03/20 10:49 11:45 16:02 19:00 Temp 97.5 98.7 98.5 97.5 98.7 98.5 Pulse 77 90 76 79 Resp 18 16 18 B/P (MAP) 126/31 176/69 (104) 130/53 (78) 136/50 (78) Pulse Ox 98 99 98 O2 Delivery Room Air Room Air Room Air 02/03/20 02/03/20 02/04/20 02/04/20 20:05 23:00 03:00 04:10 Temp 98.7 98.4 98.7 98.4 Pulse 88 103 103 Resp 18 18 B/P (MAP) 164/76 (105) 197/75 (115) 197/75 Pulse Ox 98 100 O2 Delivery Room Air Room Air Room Air 02/04/20 07:20 Temp 97.7 97.7 Pulse 102 Resp 16 B/P (MAP) 210/81 (124) Pulse Ox 96 O2 Delivery Room Air Intake and Output 02/03/20 02/03/20 02/04/20 15:00 23:00 07:00 Intake Total 120 ml 50 ml 0 ml Balance 120 ml 50 ml 0 ml Justicifation of Admission Dx: Justifications for Admission: Justification of Admission Dx: Yes Sepsis: Altered Mental Status Altered Mental Status: Altered Mental Status (immune compramised,s/p kidney transplant.) Nutrition Consultation Dietary Evaluation: Recommendations by RD: Dietary education by RD, PPN/TPN Comments: NPO per [employer] REC TPN: 195 g dextrose, 60 g AA, 20 g lipid until G tube placed and able to start TF Expected Outcomes/Goals: New goal 02/02: to meet >75% est nutr needs via TPN Malnutrition Findings: Body Fat Depletion (Non Severe: Mild Depletion Weight Status: Appropriate AUGUSTO BRUNER MD Feb 04, 2020 09:46
[2020-02-04] MEDS ORDERED: cloNIDine TTS-1 1 PATCH PATCH.TDWK TD SCH (10:00)
--- NOTE | 2020-02-04 10:03 | PDOC ---
PROGRESS NOTES Subjective Subjective No new complaints. Objective Objective Vital Signs Date Time Temp Pulse Resp B/P (MAP) Pulse Ox O2 Delivery O2 Flow Rate FiO2 02/04/20 07:20 97.7 102 16 210/81 (124) 96 Room Air 97.7 02/01/20 20:00 2.0 Intake and Output 02/04/20 07:00 Intake Total 170 ml Balance 170 ml Intake Oral 170 ml # Voids 1 Physical Exam Physical Exam She is awake but follows few commands and she continues with cognitive,vis ual,perceptual,mobility and self care l;imitations. Assessment Assessment Problems Medical Problems: (1) Cough Status: Acute (2) Left-sided weakness Status: Acute Plan Plan of Care To continue present care efforts as tolerated. Comment Review of Relevant I have reviewed the following items warner (where applicable) has been applied. Labs Laboratory Tests Test 02/02/20 11:24 02/02/20 16:18 02/02/20 21:26 02/03/20 05:55 Glucose (Fingerstick) 165 mg/dL (70-99) 219 mg/dL (70-99) 211 mg/dL (70-99) White Blood Count 20.9 x10^3/uL (4.0-11.0) Red Blood Count 4.37 x10^6/uL (3.50-5.40) Hemoglobin 11.2 g/dL (12.0-15.5) Hematocrit 35.1 % (36.0-47.0) Mean Corpuscular Volume 80 fL (79-100) Mean Corpuscular Hemoglobin 26 pg (25-35) Mean Corpuscular Hemoglobin Concent 32 g/dL (31-37) Red Cell Distribution Width 16.0 % (11.5-14.5) Platelet Count 259 x10^3/uL (140-400) Neutrophils (%) (Auto) 86 % (31-73) Lymphocytes (%) (Auto) 4 % (24-48) Monocytes (%) (Auto) 9 % (0-9) Eosinophils (%) (Auto) 0 % (0-3) Basophils (%) (Auto) 0 % (0-3) Neutrophils # (Auto) 18.1 x10^3/uL (1.8-7.7) Lymphocytes # (Auto) 0.9 x10^3/uL (1.0-4.8) Monocytes # (Auto) 1.9 x10^3/uL (0.0-1.1) Eosinophils # (Auto) 0.0 x10^3/uL (0.0-0.7) Basophils # (Auto) 0.0 x10^3/uL (0.0-0.2) Segmented Neutrophils % 89 % (35-66) Band Neutrophils % 1 % (0-9) Lymphocytes % 5 % (24-48) Monocytes % 5 % (0-10) Platelet Estimate Adequate (ADEQUATE) Large Platelets Occ Sodium Level 142 mmol/L (136-145) Potassium Level 6.2 mmol/L (3.5-5.1) Chloride Level 111 mmol/L (98-107) Carbon Dioxide Level 15 mmol/L (21-32) Anion Gap 16 (6-14) Blood Urea Nitrogen 90 mg/dL (7-20) Creatinine 2.3 mg/dL (0.6-1.0) Estimated GFR (Cockcroft-Gault) 25.7 BUN/Creatinine Ratio 39 (-20) Glucose Level 289 mg/dL (70-99) Calcium Level 10.4 mg/dL (8.5-10.1) Phosphorus Level 5.1 mg/dL (2.6-4.7) Magnesium Level 2.5 mg/dL (1.8-2.4) Total Bilirubin 0.2 mg/dL (0.2-1.0) Aspartate Amino Transf (AST/SGOT) 28 U/L (15-37) Alanine Aminotransferase (ALT/SGPT) 23 U/L (14-59) Alkaline Phosphatase 88 U/L (46-116) Total Protein 6.7 g/dL (6.4-8.2) Albumin 2.3 g/dL (3.4-5.0) Albumin/Globulin Ratio 0.5 (1.0-1.7) Test 02/03/20 07:17 02/03/20 12:46 02/03/20 15:12 02/03/20 16:48 Glucose (Fingerstick) 280 mg/dL (70-99) 347 mg/dL (70-99) 328 mg/dL (70-99) 304 mg/dL (70-99) Test 02/03/20 19:41 6/9/20 03:25 02/04/20 07:27 02/04/20 09:15 Glucose (Fingerstick) 327 mg/dL (70-99) 526 mg/dL (70-99) 514 mg/dL (70-99) White Blood Count 14.0 x10^3/uL (4.0-11.0) Red Blood Count 4.61 x10^6/uL (3.50-5.40) Hemoglobin 11.8 g/dL (12.0-15.5) Hematocrit 37.9 % (36.0-47.0) Mean Corpuscular Volume 82 fL (79-100) Mean Corpuscular Hemoglobin 26 pg (25-35) Mean Corpuscular Hemoglobin Concent 31 g/dL (31-37) Red Cell Distribution Width 16.3 % (11.5-14.5) Platelet Count 248 x10^3/uL (140-400) Neutrophils (%) (Auto) 88 % (31-73) Lymphocytes (%) (Auto) 4 % (24-48) Monocytes (%) (Auto) 8 % (0-9) Eosinophils (%) (Auto) 0 % (0-3) Basophils (%) (Auto) 0 % (0-3) Neutrophils # (Auto) 12.3 x10^3/uL (1.8-7.7) Lymphocytes # (Auto) 0.5 x10^3/uL (1.0-4.8) Monocytes # (Auto) 1.2 x10^3/uL (0.0-1.1) Eosinophils # (Auto) 0.0 x10^3/uL (0.0-0.7) Basophils # (Auto) 0.0 x10^3/uL (0.0-0.2) Sodium Level 140 mmol/L (136-145) Potassium Level 5.4 mmol/L (3.5-5.1) Chloride Level 109 mmol/L (98-107) Carbon Dioxide Level 18 mmol/L (21-32) Anion Gap 13 (6-14) Blood Urea Nitrogen 70 mg/dL (7-20) Creatinine 1.8 mg/dL (0.6-1.0) Estimated GFR (Cockcroft-Gault) 34.1 BUN/Creatinine Ratio 39 (6-20) Glucose Level 483 mg/dL (70-99) Calcium Level 10.0 mg/dL (8.5-10.1) Phosphorus Level 2.4 mg/dL (2.6-4.7) Magnesium Level 2.2 mg/dL (1.8-2.4) Total Bilirubin 0.2 mg/dL (0.2-1.0) Aspartate Amino Transf (AST/SGOT) 21 U/L (15-37) Alanine Aminotransferase (ALT/SGPT) 26 U/L (14-59) Alkaline Phosphatase 93 U/L (46-116) Total Protein 6.3 g/dL (6.4-8.2) Albumin 2.3 g/dL (3.4-5.0) Albumin/Globulin Ratio 0.6 (1.0-1.7) Triglycerides Level 112 mg/dL (0-150) Laboratory Tests Test 02/03/20 12:46 02/03/20 15:12 02/03/20 16:48 02/03/20 19:41 Glucose (Fingerstick) 347 mg/dL (70-99) 328 mg/dL (70-99) 304 mg/dL (70-99) 327 mg/dL (70-99) Test 02/04/20 03:25 02/04/20 07:27 02/04/20 09:15 White Blood Count 14.0 x10^3/uL (4.0-11.0) Red Blood Count 4.61 x10^6/uL (3.50-5.40) Hemoglobin 11.8 g/dL (12.0-15.5) Hematocrit 37.9 % (36.0-47.0) Mean Corpuscular Volume 82 fL (79-100) Mean Corpuscular Hemoglobin 26 pg (25-35) Mean Corpuscular Hemoglobin Concent 31 g/dL (31-37) Red Cell Distribution Width 16.3 % (11.5-14.5) Platelet Count 248 x10^3/uL (140-400) Neutrophils (%) (Auto) 88 % (31-73) Lymphocytes (%) (Auto) 4 % (24-48) Monocytes (%) (Auto) 8 % (0-9) Eosinophils (%) (Auto) 0 % (0-3) Basophils (%) (Auto) 0 % (0-3) Neutrophils # (Auto) 12.3 x10^3/uL (1.8-7.7) Lymphocytes # (Auto) 0.5 x10^3/uL (1.0-4.8) Monocytes # (Auto) 1.2 x10^3/uL (0.0-1.1) Eosinophils # (Auto) 0.0 x10^3/uL (0.0-0.7) Basophils # (Auto) 0.0 x10^3/uL (0.0-0.2) Sodium Level 140 mmol/L (136-145) Potassium Level 5.4 mmol/L (3.5-5.1) Chloride Level 109 mmol/L (98-107) Carbon Dioxide Level 18 mmol/L (21-32) Anion Gap 13 (6-14) Blood Urea Nitrogen 70 mg/dL (7-20) Creatinine 1.8 mg/dL (0.6-1.0) Estimated GFR (Cockcroft-Gault) 34.1 BUN/Creatinine Ratio 39 (6-20) Glucose Level 483 mg/dL (70-99) Calcium Level 10.0 mg/dL (8.5-10.1) Phosphorus Level 2.4 mg/dL (2.6-4.7) Magnesium Level 2.2 mg/dL (1.8-2.4) Total Bilirubin 0.2 mg/dL (0.2-1.0) Aspartate Amino Transf (AST/SGOT) 21 U/L (15-37) Alanine Aminotransferase (ALT/SGPT) 26 U/L (14-59) Alkaline Phosphatase 93 U/L (46-116) Total Protein 6.3 g/dL (6.4-8.2) Albumin 2.3 g/dL (3.4-5.0) Albumin/Globulin Ratio 0.6 (1.0-1.7) Triglycerides Level 112 mg/dL (0-150) Glucose (Fingerstick) 526 mg/dL (70-99) 514 mg/dL (70-99) Microbiology 02/03/20 Blood Culture - Final, Complete Medications Current Medications Clonidine HCl (Catapres) 0.2 mg 1X ONCE PO Last administered on 01/23/20at 17:38; Start 01/23/20 at 17:30; Stop 01/23/20 at 17:31; Status DC Ondansetron HCl (Zofran) 4 mg PRN Q8HRS PRN IV NAUSEA/VOMITING; Start 01/23/20 at 17:45; Stop 01/24/20 at 17:44; Status DC Morphine Sulfate (Morphine Sulfate) 2 mg PRN Q2HR PRN IV PAIN; Start 01/23/20 at 17:45; Stop 01/24/20 at 17:44; Status DC Dextrose/Sodium Chloride 1,000 ml @ 100 mls/hr 1X ONCE IV Last administered on 01/23/20at 19:24; Start 01/23/20 at 17:45; Stop 01/24/20 at 03:44; Status DC Pharmacy Consult (C.diff Med Screen By Rx) 1 each 1X ONCE MC Last administered on 01/24/20at 08:26; Start 01/24/20 at 09:00; Stop 01/24/20 at 09:01; Status DC Labetalol HCl (Normodyne Iv Push) 20 mg PRN Q4HRS PRN IVP HYPERTENSION, 2nd choice Last administered on 01/26/20at 00:17; Start 01/24/20 at 04:15 Clonidine HCl (Catapres Tts-3) 1 patch WEEKLY TD ; Start 01/24/20 at 09:00; Stop 01/24/20 at 05:21; Status DC Piperacillin Sod/ Tazobactam Sod (Zosyn Per Pharmacy) 1 each PRN DAILY PRN MC SEE COMMENTS; Start 01/24/20 at 04:30; Stop 01/24/20 at 09:32; Status DC Piperacillin Sod/ Tazobactam Sod 3.375 gm/Sodium Chloride 50 ml @ 100 mls/hr Q6H IV Last administered on 01/24/20at 05:06; Start 01/24/20 at 05:00; Stop 01/24/20 at 09:30; Status DC Clonidine HCl (Catapres Tts-3) 1 patch WEEKLY TD Last administered on 01/31/20at 08:22; Start 01/24/20 at 16:00; Stop 02/04/20 at 09:59; Status DC Clonidine HCl (Catapres Tts-3) 1 patch 1X ONCE TD ; Start 01/24/20 at 05:30; Stop 01/24/20 at 05:31; Status DC Levetiracetam (Keppra) 500 mg BID PO ; Start 01/24/20 at 09:00; Status Cancel Acetaminophen (Tylenol) 650 mg PRN Q6HRS PRN PO TEMP > 100.4F; Start 01/24/20 at 08:30; Stop 01/26/20 at 12:00; Status DC Acetaminophen (Tylenol Supp) 650 mg PRN Q4HRS PRN MI TEMP > 100.4F; Start 01/24/20 at 08:30 Aspirin (Ecotrin) 325 mg DAILYWBKFT PO Last administered on 02/03/20at 10:49; Start 01/25/20 at 08:00 Aspirin (Aspirin Rectal Supp) 300 mg PRN DAILY PRN MI IF UNABLE TO TAKE PO Last administered on 02/04/20 09:56; Start 01/24/20 at 08:30 Lorazepam (Ativan Inj) 2 mg PRN Q4HRS PRN IVP ANXIETY / AGITATION Last administered on 01/24/20at 10:14; Start 01/24/20 at 10:00; Stop 01/24/20 at 16:35; Status DC Acetaminophen (Tylenol) 1,000 mg PRN Q8HRS PRN PO MILD PAIN OR FEVER; Start 01/24/20 at 10:15 Aspirin (Ecotrin) 81 mg DAILY PO ; Start 01/25/20 at 09:00; Status UNV Vitamin B Complex/ Vitamin C (Vicki-Stacey) 1 tab DAILY PO Last administered on 02/03/20 10:48; Start 01/25/20 at 09:00 Hydralazine HCl (Apresoline) 25 mg BID PO Last administered on 02/03/20at 10:49; Start 01/24/20 at 21:00 Insulin Human Lispro (HumaLOG) 2 units DAILYWLUN SQ Last administered on 02/03/20 12:51; Start 01/24/20 at 12:00 Insulin Human Lispro (HumaLOG) 4 units DAILYWBKFT SQ Last administered on 02/02/20at 09:18; Start 01/25/20 at 08:00 Insulin Human Lispro (HumaLOG) 8 units DAILYWSUP SQ Last administered on 02/03/20at 18:17; Start 01/24/20 at 17:00 Lisinopril (Prinivil) 20 mg DAILY PO Last administered on 02/01/20 10:37; Start 01/24/20 at 12:00; Stop 02/02/20 at 11:51; Status DC Prednisone (Prednisone) 2 mg DAILY PO Last administered on 01/26/20 10:15; Start 01/24/20 at 12:00; Stop 01/26/20 at 12:24; Status DC Quetiapine Fumarate (SEROquel) 25 mg BID PO Last administered on 01/26/20 21:14; Start 01/24/20 at 12:00; Stop 01/27/20 at 09:52; Status DC Tacrolimus (Prograf) 0.5 mg BID PO Last administered on 02/03/20 10:49; Start 01/24/20 at 12:00 Trazodone HCl (Desyrel) 50 mg QHS PO Last administered on 01/26/20 21:14; Start 01/24/20 at 21:00; Stop 01/27/20 at 09:52; Status DC Fluconazole (Diflucan) 200 mg DAILY PO Last administered on 02/03/20 10:49; Start 01/24/20 at 11:00 Insulin Glargine (Lantus Syringe) 18 unit QHS SQ ; Start 01/24/20 at 21:00; Stop 01/24/20 at 20:59; Status DC Olanzapine (ZyPREXA) 10 mg QHS PO Last administered on 01/26/20 21:14; Start 01/24/20 at 21:00; Stop 01/27/20 at 09:52; Status DC Enoxaparin Sodium (Lovenox 40mg Syringe) 40 mg Q24H SQ Last administered on 01/26/20at 10:12; Start 01/24/20 at 11:00; Stop 01/26/20 at 12:24; Status DC Amino Acids/ Glycerin/ Electrolytes 1,000 ml @ 75 mls/hr [id number] IV Last administered on 01/29/20 15:50; Start 01/24/20 at 13:45; Stop 01/30/20 at 10:00; Status DC Levetiracetam 500 mg/Dextrose 105 ml @ 420 mls/hr Q12HR IV Last administered on 01/26/20 21:14; Start 01/24/20 at 13:45; Stop 01/27/20 at 08:47; Status DC Non-Formulary Medication 0.5 ea BID NG Last administered on 01/24/20at 21:12; Start 01/24/20 at 15:00; Stop 01/27/20 at 04:41; Status DC Lorazepam (Ativan Inj) 0.5 mg PRN Q4HRS PRN IVP ANXIETY / AGITATION Last administered on 01/25/20at 06:34; Start 01/24/20 at 16:45 Insulin Glargine (Lantus Syringe) 18 unit QHS SQ Last administered on 02/03/20at 20:15; Start 01/24/20 at 21:00 Dextrose (Dextrose 50%-Water Syringe) 12.5 gm PRN Q15MIN PRN IV SEE COMMENTS; Start 01/24/20 at 21:45 Enalaprilat (Vasotec Inj) 1.25 mg PRN Q6HRS PRN IVP HYPERTENSION, 1st choice Last administered on 02/04/20at 04:10; Start 01/25/20 at 12:00 Prednisone (Prednisone) 5 mg DAILY PO Last administered on 02/03/20at 10:48; Start 01/27/20 at 09:00 Levetiracetam (Keppra) 500 mg BID PO Last administered on 02/03/20at 10:49; Start 01/27/20 at 09:00 Tacrolimus (Prograf Oral Susp) 0.5 mg STK-MED ONCE .ROUTE ; Start 01/24/20 at 21:00; Stop 01/27/20 at 14:30; Status DC Tacrolimus (Prograf Oral Susp) 0.5 mg STK-MED ONCE .ROUTE ; Start 01/24/20 at 21:00; Stop 01/27/20 at 14:30; Status DC Cefazolin Sodium (Ancef) 1 gm 1X ONCE IVP ; Start 01/31/20 at 12:00; Stop 01/31/20 at 12:01; Status DC Ringer's Solution 1,000 ml @ 50 mls/hr Q20H IV ; Start 01/31/20 at 07:00; Stop 01/31/20 at 18:59; Status DC Ringer's Solution 1,000 ml @ 75 mls/hr 1X ONCE IV ; Start 01/31/20 at 08:15; Stop 01/31/20 at 21:34; Status DC Hydralazine HCl (Apresoline Inj) 10 mg PRN Q4HRS PRN IVP ELEVATED BP, SEE COMMENTS Last administered on 01/31/20at 10:55; Start 01/31/20 at 09:45 Propofol (Diprivan) 200 mg STK-MED ONCE IV ; Start 01/31/20 at 13:08; Stop 01/31/20 at 13:09; Status DC Sodium Chloride 1,000 ml @ 100 mls/hr Q10H IV Last administered on 02/04/20at 04:09; Start 02/02/20 at 11:00 Info (Tpn Per Pharmacy) 1 each PRN DAILY PRN MC SEE COMMENTS Last administered on 02/03/20at 16:03; Start 02/03/20 at 10:00 Piperacillin Sod/ Tazobactam Sod 2.25 gm/Sodium Chloride 50 ml @ 100 mls/hr Q6HRS IV Last administered on 02/04/20at 05:57; Start 02/03/20 at 12:00 Insulin Human Lispro (HumaLOG) 10 units 1X ONCE SQ Last administered on 02/03/20at 11:10; Start 02/03/20 at 10:30; Stop 02/03/20 at 10:31; Status DC Calcium Gluconate (Calcium Gluconate) 1,000 mg 1X ONCE IVP Last administered on 02/03/20at 10:49; Start 02/03/20 at 10:30; Stop 02/03/20 at 10:31; Status DC Linezolid/Dextrose 300 ml @ 300 mls/hr Q12HR IV Last administered on 02/04/20at 09:41; Start 02/03/20 at 11:00 Dextrose (Dextrose 50%-Water Syringe) 25 gm 1X ONCE IV Last administered on 02/03/20at 10:49; Start 02/03/20 at 10:45; Stop 02/03/20 at 10:47; Status DC Lidocaine/ Epinephrine (LIDOCAINE 1%-EPI 1:100,000 Multi-Dose) 20 ml STK-MED ONCE .ROUTE ; Start 02/03/20 at 14:52; Stop 02/03/20 at 14:52; Status DC Sodium Chloride 90 meq/Magnesium Sulfate 5 meq/ Multivitamins 10 ml/Chromium/ Copper/Manganese/ Seleni/Zn 1 ml/ Insulin Human Regular 10 unit/ Total Parenteral Nutrition/Amino Acids/Dextrose/ Fat Emulsion Intravenous 1,512 ml @ 63 mls/hr TPN CONT IV Last administered on 02/03/20at 21:49; Start 02/03/20 at 2 2:00; Stop 02/04/20 at 21:59 Lidocaine/ Epinephrine (LIDOCAINE 1%-EPI 1:100,000 Multi-Dose) 20 ml 1X ONCE INJ Last administered on 02/03/20at 15:35; Start 02/03/20 at 15:15; Stop 02/03/20 at 15:16; Status DC Heparin Sodium (Porcine) (Hep Lock Adult) 500 unit STK-MED ONCE IVP ; Start 02/03/20 at 15:39; Stop 02/03/20 at 15:39; Status DC Heparin Sodium (Porcine) (Hep Lock Adult) 500 unit 1X ONCE IVP Last administered on 02/03/20at 15:45; Start 02/03/20 at 15:45; Stop 02/03/20 at 15:49; Status DC Insulin Human Lispro (HumaLOG) 15 units 1X ONCE SQ Last administered on 02/04/20at 08:40; Start 02/04/20 at 12:00; Stop 02/04/20 at 12:01 Insulin Human Lispro (HumaLOG) 0-9 UNITS TIDWMEALS SQ ; Start 02/04/20 at 12:00 Dextrose (Dextrose 50%-Water Syringe) 12.5 gm PRN Q15MIN PRN IV SEE COMMENTS; Start 02/04/20 at 08:30 Clonidine HCl (Catapres Tts-1) 1 patch WEEKLY TD ; Start 02/11/20 at 09:00; Status UNV Active Scripts Active Diflucan (Fluconazole) 100 Mg Tablet 200 Mg PO DAILY Reported Zyprexa (Olanzapine) 10 Mg Tablet 1 Tab PO QHS Trazodone Hcl 50 Mg Tablet 1 Tab PO QHS Seroquel (Quetiapine Fumarate) 25 Mg Tablet 25 Mg PO BID Humalog (Insulin Lispro) 100 Unit/1 Ml Vial 2 Unit SQ DAILYBFRLUN Lisinopril 20 Mg Tablet 1 Tab PO DAILY Acetaminophen 500 Mg Tablet 2 Tab PO PRN Q8HRS PRN 15 Days Prednisone 1 Mg Tablet 2 Mg PO DAILY Humalog (Insulin Lispro) 100 Unit/1 Ml Vial 8 Unit SQ DAILYBFRSUP Humalog (Insulin Lispro) 100 Unit/1 Ml Vial 4 Unit SQ DAILYWBKFT Hydralazine Hcl 25 Mg Tablet 1 Tab PO BID Aspir-Low (Aspirin) 81 Mg Tablet. 1 Tab PO DAILY Prograf (Tacrolimus) 1 Mg Capsule 0.5 Mg PO BID Levemir (Insulin Detemir) 100 Unit/1 Ml Vial 18 Unit SQ QHS Hold for FSBS below 90 and call Nephro-Stacey Tablet (Folic Acid/Vitamin B Comp W-C) 0.8 Mg Tablet 1 Tab PO DAILY Levetiracetam 500 Mg Tablet 500 Mg PO BID Vitals/I & O Vital Sign - Last 24 Hours 02/03/20 02/03/20 02/03/20 02/03/20 10:49 11:45 16:02 19:00 Temp 97.5 98.7 98.5 97.5 98.7 98.5 Pulse 77 90 76 79 Resp 18 16 18 B/P (MAP) 126/31 176/69 (104) 130/53 (78) 136/50 (78) Pulse Ox 98 99 98 O2 Delivery Room Air Room Air Room Air 02/03/20 02/03/20 02/04/20 02/04/20 20:05 23:00 03:00 04:10 Temp 98.7 98.4 98.7 98.4 Pulse 88 103 103 Resp 18 18 B/P (MAP) 164/76 (105) 197/75 (115) 197/75 Pulse Ox 98 100 O2 Delivery Room Air Room Air Room Air 02/04/20 07:20 Temp 97.7 97.7 Pulse 102 Resp 16 B/P (MAP) 210/81 (124) Pulse Ox 96 O2 Delivery Room Air Intake and Output 02/03/20 02/03/20 02/04/20 15:00 23:00 07:00 Intake Total 120 ml 50 ml 0 ml Balance 120 ml 50 ml 0 ml Nutrition Consultation Dietary Evaluation: Recommendations by RD: Dietary education by RD, PPN/TPN Comments: NPO per [employer] REC TPN: 195 g dextrose, 60 g AA, 20 g lipid until G tube placed and able to start TF Expected Outcomes/Goals: New goal 02/02: to meet >75% est nutr needs via TPN Malnutrition Findings: Body Fat Depletion (Non Severe: Mild Depletion Weight Status: Appropriate RADHA HUITRON MD Feb 04, 2020 10:03
--- NOTE | 2020-02-04 10:42 | PDOC ---
Objective: Objective: D/w nurse - no GI concerns. Vital Signs: Vital Signs Date Time Temp Pulse Resp B/P (MAP) Pulse Ox O2 Delivery O2 Flow Rate FiO2 02/04/20 09:00 Room Air 02/04/20 07:20 97.7 102 16 210/81 (124) 96 97.7 Labs: Laboratory Tests Test 02/03/20 12:46 02/03/20 15:12 02/03/20 16:48 02/03/20 19:41 Glucose (Fingerstick) 347 mg/dL 328 mg/dL 304 mg/dL 327 mg/dL Test 02/04/20 03:25 02/04/20 07:27 02/04/20 09:15 White Blood Count 14.0 x10^3/uL Red Blood Count 4.61 x10^6/uL Hemoglobin 11.8 g/dL Hematocrit 37.9 % Mean Corpuscular Volume 82 fL Mean Corpuscular Hemoglobin 26 pg Mean Corpuscular Hemoglobin Concent 31 g/dL Red Cell Distribution Width 16.3 % Platelet Count 248 x10^3/uL Neutrophils (%) (Auto) 88 % Lymphocytes (%) (Auto) 4 % Monocytes (%) (Auto) 8 % Eosinophils (%) (Auto) 0 % Basophils (%) (Auto) 0 % Neutrophils # (Auto) 12.3 x10^3/uL Lymphocytes # (Auto) 0.5 x10^3/uL Monocytes # (Auto) 1.2 x10^3/uL Eosinophils # (Auto) 0.0 x10^3/uL Basophils # (Auto) 0.0 x10^3/uL Sodium Level 140 mmol/L Potassium Level 5.4 mmol/L Chloride Level 109 mmol/L Carbon Dioxide Level 18 mmol/L Anion Gap 13 Blood Urea Nitrogen 70 mg/dL Creatinine 1.8 mg/dL Estimated GFR (Cockcroft-Gault) 34.1 BUN/Creatinine Ratio 39 Glucose Level 483 mg/dL Calcium Level 10.0 mg/dL Phosphorus Level 2.4 mg/dL Magnesium Level 2.2 mg/dL Total Bilirubin 0.2 mg/dL Aspartate Amino Transf (AST/SGOT) 21 U/L Alanine Aminotransferase (ALT/SGPT) 26 U/L Alkaline Phosphatase 93 U/L Total Protein 6.3 g/dL Albumin 2.3 g/dL Albumin/Globulin Ratio 0.6 Triglycerides Level 112 mg/dL Glucose (Fingerstick) 526 mg/dL 514 mg/dL BLOOD CULTURE Final GRAM NEGATIVE RODS, Imaging: IR procedure 02/02 Impression: Successful ultrasound and fluoroscopically guided placement of a right internal jugular tunneled central venous catheter. CXR 02/02 Impression: 1. Multifocal pulmonary opacities, increased compared to prior. PE: GEN: NAD LUNGS: diminished HEART: borderline tachycardic ABD: non-distended NEURO/PSYCH: resting quietly A/P: Encephalopathy, dysphagia - unsuccessful PEG attempt, possible G tube at some point per surgery GNR bacteremia HTN Leukocytosis, TIESHA, hyperglycemia -- Standing by. Justicifation of Admission Dx: Justifications for Admission: Justification of Admission Dx: Yes Comminuty Aquired Pneumonia: Immunocomprimised Pt Sepsis: Altered Mental Status Altered Mental Status: Altered Mental Status EMMANUEL MOYA Feb 04, 2020 10:42
[2020-02-04 11:12] VITALS: BP 173/69
--- NOTE | 2020-02-04 11:13 | RAD ---
Examination: CT ABDOMEN PELVIS WO CONTRAST History: Reason: gram neg sepsis / Comparison/Correlation: 12/18/2017 CT abdomen and pelvis with contrast Findings: Axial images of the abdomen and pelvis were obtained without contrast. Sagittal and coronal reformatted images were provided. Marked coronary arterial calcification diffusely is seen. Sternal wires are present. Minimal right posterior basilar linear atelectasis is present. Linear density or scar measuring up to 0.9 cm diameter is present at the posterior right lung base adjacent to the pleura and this is similar on comparison with the prior CT exam is likely representing a benign process is visible. Very small left pleural effusion is present. Unenhanced spleen, liver, pancreas, and adrenal glands are unremarkable. Small calculi present within the gallbladder. 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 It is stable compared to the previous exam seen a faint calcific involvement of the abdominal arterial vasculature is noted. Right iliac fossa renal transplant is evident. Gas is present within nondependent calyces of the right renal transplant. Large quantity of stool is present in the colon. No bowel obstruction. No intraperitoneal extraluminal gas. Small umbilical hernia contains omental fat. Gas is present within the urinary bladder. Uterus is atrophic or absent. Severe calcific involvement of the femoral and iliac arteries is noted. Decompressed infrarenal inferior vena cava and common iliac veins. Transitional L5 vertebra is present. There is no ascites. No enlarged abdominal or pelvic lymph nodes. No suspicious collections within the abdomen or pelvis. Impression: Gas is present within the urinary bladder and the right iliac fossa renal transplant. Correlate with instrumentation. Infectious etiology is not excluded. No suspicious collections. No enlarged abdominal or pelvic lymph nodes. No inflammatory processes. Decompressed infrarenal inferior vena cava. Correlate with hydration status. Very small left pleural effusion. No change in right renal angiomyolipoma. Cholelithiasis. PQRS Compliance Statement: One or more of the following individualized dose reduction techniques were utilized for this examination: 1. Automated exposure control 2. Adjustment of the mA and/or kV according to patient size 3. Use of iterative reconstruction technique Electronically signed by: Bryan Johnson MD (02/04/2020 11:10 AM) [id number]
[2020-02-04] MEDS: HEPARIN for SUB-Q USE 5,000 UNIT/ML VIAL. SQ SCH ×2 (11:41→20:08)
--- NOTE | 2020-02-04 11:42 | PDOC ---
Renal-Progress Notes Subjective Notes Notes CONFUSED History of Present Illness Hx of present illness STABLE Vitals Vitals Vital Signs Date Time Temp Pulse Resp B/P (MAP) Pulse Ox O2 Delivery O2 Flow Rate FiO2 02/04/20 11:12 98.0 88 18 173/69 (103) 82 Room Air 98.0 Weight Weight [ ] I.O. Intake and Output Intake and Output 02/04/20 07:00 Intake Total 170 ml Balance 170 ml Intake Oral 170 ml # Voids 1 Labs Labs Laboratory Tests Test 02/03/20 12:46 02/03/20 15:12 02/03/20 16:48 02/03/20 19:41 Glucose (Fingerstick) 347 mg/dL (70-99) 328 mg/dL (70-99) 304 mg/dL (70-99) 327 mg/dL (70-99) Test 02/04/20 03:25 02/04/20 07:27 02/04/20 09:15 White Blood Count 14.0 x10^3/uL (4.0-11.0) Red Blood Count 4.61 x10^6/uL (3.50-5.40) Hemoglobin 11.8 g/dL (12.0-15.5) Hematocrit 37.9 % (36.0-47.0) Mean Corpuscular Volume 82 fL (79-100) Mean Corpuscular Hemoglobin 26 pg (25-35) Mean Corpuscular Hemoglobin Concent 31 g/dL (31-37) Red Cell Distribution Width 16.3 % (11.5-14.5) Platelet Count 248 x10^3/uL (140-400) Neutrophils (%) (Auto) 88 % (31-73) Lymphocytes (%) (Auto) 4 % (24-48) Monocytes (%) (Auto) 8 % (0-9) Eosinophils (%) (Auto) 0 % (0-3) Basophils (%) (Auto) 0 % (0-3) Neutrophils # (Auto) 12.3 x10^3/uL (1.8-7.7) Lymphocytes # (Auto) 0.5 x10^3/uL (1.0-4.8) Monocytes # (Auto) 1.2 x10^3/uL (0.0-1.1) Eosinophils # (Auto) 0.0 x10^3/uL (0.0-0.7) Basophils # (Auto) 0.0 x10^3/uL (0.0-0.2) Sodium Level 140 mmol/L (136-145) Potassium Level 5.4 mmol/L (3.5-5.1) Chloride Level 109 mmol/L (98-107) Carbon Dioxide Level 18 mmol/L (21-32) Anion Gap 13 (6-14) Blood Urea Nitrogen 70 mg/dL (7-20) Creatinine 1.8 mg/dL (0.6-1.0) Estimated GFR (Cockcroft-Gault) 34.1 BUN/Creatinine Ratio 39 (6-20) Glucose Level 483 mg/dL (70-99) Calcium Level 10.0 mg/dL (8.5-10.1) Phosphorus Level 2.4 mg/dL (2.6-4.7) Magnesium Level 2.2 mg/dL (1.8-2.4) Total Bilirubin 0.2 mg/dL (0.2-1.0) Aspartate Amino Transf (AST/SGOT) 21 U/L (15-37) Alanine Aminotransferase (ALT/SGPT) 26 U/L (14-59) Alkaline Phosphatase 93 U/L (46-116) Total Protein 6.3 g/dL (6.4-8.2) Albumin 2.3 g/dL (3.4-5.0) Albumin/Globulin Ratio 0.6 (1.0-1.7) Triglycerides Level 112 mg/dL (0-150) Glucose (Fingerstick) 526 mg/dL (70-99) 514 mg/dL (70-99) Micro Micro Microbiology 02/03/20 Blood Culture - Final, Complete Review of Systems Constitutional: yes: other (CONFUSED) Physical Exam General Appearance: no apparent distress Skin: warm Respiratory: bilateral CTA Heart: S1S2 Abdomen: soft, bowel sounds present Genitourinary: bladder flat Extremities: pulses present Neurology: confused Assessment Assessment IMP HYPERKALEMIA-BETTER HYPOTENSION-BETTER HX OF RENAL TX CAN - CKD - CR OF 1.8 HX OF CRYTOCOCCUS HX OF EPILEPSY ENCEPHALOPATHY CVA PLAN OFF HER QUOC-I INCREASE HYDRATION START HYPERALIMENTATION POSSIBLE G TUBE CONT SUPPORTIVE CARE CONT PREDNISONE AND PROGRAF UPDATED FAMILY WILL FOLLOW MO RODRIGUEZ MD Feb 04, 2020 11:42
[2020-02-04] MEDS ORDERED: INSULIN LISPRO 300 UNITS/3 ML VIAL. SQ SCH (12:00)
[2020-02-04] MEDS ORDERED: INSULIN LISPRO 300 UNITS/3 ML VIAL. SQ ONE (12:00)
[2020-02-04 12:31] LABS: BILIRUBIN,URINE NEGATIVE (NEG); CLARITY,URINE CLOUDY; COLOR,URINE YELLOW; NITRITE,URINE POSITIVE (NEG); PH,URINE 5.5 (<5.0-8.0); PROTEIN,URINE >=300 mg/dL (NEG-TRACE); UROBILINOGEN,URINE 0.2 mg/dL (0.2 mg/dL)
[2020-02-04] MEDS: TPN PER PHARMACY MC PRN (13:00)
--- NOTE | 2020-02-04 13:03 | NUR ---
Pharmacy TPN Dosing Note S: DIANA WATERS is a 64 year old F Currently receiving Central Continuous TPN started 02/03/20 B:Pertinent PMH: failed PEG tube insertion Height: 5 feet, 6 inches Weight: 68.2 kg Current diet: NPO LABS: Sodium: 140 Potassium: 5.4 Chloride: 109 Calcium: 10.0 Corrected Calcium: 11.36 Magnesium: 2.2 CO2: 18 SCr: 1.8 Glucose: 327-526 Albumin: 2.3 AST: 28 ALT: 23 TPN FORMULA: TPN TYPE: Central Continuous AMINO ACIDS: 60 gm DEXTROSE: 120 gm LIPIDS: 20 gm SODIUM CHLORIDE: 20 mEq SODIUM ACETATE: 70 mEq SODIUM PHOSPHATE: 13.6 mmol MAGNESIUM: 5 mEq INSULIN: 30 units MULTIPLE VITAMIN: 10 ml TRACE ELEMENTS: 1 ml(s) TPN PLAN: Dextrose decreased to 120g and insulin increased to 30 units/bag per orders from Dr Moran. Sodium phos added to TPN and sodium split over chloride/acetate salts. R: Change TPN per plan and ordered formula Will monitor electrolytes, glucose, and tolerance to TPN. Ada Freeman [facility], 02/04/20 [id number]
[2020-02-04 13:07] LABS: BACTERIA,URINE MANY /HPF (0-FEW); RBC,URINE 0 /HPF (0-2); SQUAMOUS EPITHELIAL CELL,UR OCC /LPF; WBC,URINE TNTC /HPF (0-4)
--- NOTE | 2020-02-04 13:30 | NUR ---
This nurse has attempted to reach Dr. Moran several times to report a blood sugar of 456. The office was called twice and direct calls to his pager as well. Dr. Moran never returned pages. Pt dosed with sliding scale insulin and scheduled insulin. Will continue to try to reach Dr. Moran.
[2020-02-04 15:04] VITALS: BP 161/65
--- NOTE | 2020-02-04 16:05 | NUR ---
Dr. Moran notified of blood sugar of 505, orders received to start an insulin drip.
[2020-02-04] MEDS: INSULIN REGULAR VIAL 100 UNIT in IV NORMAL SALINE 100ML 100 ML IV PRN ×2 (16:30→21:30)
[2020-02-04] MEDS: FLUCONAZOLE 200MG/100ML PREMIX 100 ML IV SCH (16:47)
--- NOTE | 2020-02-04 17:11 | PDOC ---
PROGRESS NOTES Subjective Subjective pt lethargic Objective Objective Vital Signs Date Time Temp Pulse Resp B/P (MAP) Pulse Ox O2 Delivery O2 Flow Rate FiO2 02/04/20 15:04 98.2 100 22 161/65 (97) 95 Room Air 98.2 02/01/20 20:00 2.0 Intake and Output 02/04/20 07:00 Intake Total 170 ml Balance 170 ml Intake Oral 170 ml # Voids 1 Assessment Assessment Problems Medical Problems: (1) Cough Status: Acute (2) Left-sided weakness Status: Acute Plan Plan of Care Recent fever, elevated WBC, elevated glucose; hold on G tube placement until clinically improved Comment Review of Relevant I have reviewed the following items warner (where applicable) has been applied. Labs Laboratory Tests Test 02/02/20 21:26 02/03/20 05:55 02/03/20 07:17 02/03/20 12:46 Glucose (Fingerstick) 211 mg/dL (70-99) 280 mg/dL (70-99) 347 mg/dL (70-99) White Blood Count 20.9 x10^3/uL (4.0-11.0) Red Blood Count 4.37 x10^6/uL (3.50-5.40) Hemoglobin 11.2 g/dL (12.0-15.5) Hematocrit 35.1 % (36.0-47.0) Mean Corpuscular Volume 80 fL (79-100) Mean Corpuscular Hemoglobin 26 pg (25-35) Mean Corpuscular Hemoglobin Concent 32 g/dL (31-37) Red Cell Distribution Width 16.0 % (11.5-14.5) Platelet Count 259 x10^3/uL (140-400) Neutrophils (%) (Auto) 86 % (31-73) Lymphocytes (%) (Auto) 4 % (24-48) Monocytes (%) (Auto) 9 % (0-9) Eosinophils (%) (Auto) 0 % (0-3) Basophils (%) (Auto) 0 % (0-3) Neutrophils # (Auto) 18.1 x10^3/uL (1.8-7.7) Lymphocytes # (Auto) 0.9 x10^3/uL (1.0-4.8) Monocytes # (Auto) 1.9 x10^3/uL (0.0-1.1) Eosinophils # (Auto) 0.0 x10^3/uL (0.0-0.7) Basophils # (Auto) 0.0 x10^3/uL (0.0-0.2) Segmented Neutrophils % 89 % (35-66) Band Neutrophils % 1 % (0-9) Lymphocytes % 5 % (24-48) Monocytes % 5 % (0-10) Platelet Estimate Adequate (ADEQUATE) Large Platelets Occ Sodium Level 142 mmol/L (136-145) Potassium Level 6.2 mmol/L (3.5-5.1) Chloride Level 111 mmol/L (98-107) Carbon Dioxide Level 15 mmol/L (21-32) Anion Gap 16 (6-14) Blood Urea Nitrogen 90 mg/dL (7-20) Creatinine 2.3 mg/dL (0.6-1.0) Estimated GFR (Cockcroft-Gault) 25.7 BUN/Creatinine Ratio 39 (6-20) Glucose Level 289 mg/dL (70-99) Calcium Level 10.4 mg/dL (8.5-10.1) Phosphorus Level 5.1 mg/dL (2.6-4.7) Magnesium Level 2.5 mg/dL (1.8-2.4) Total Bilirubin 0.2 mg/dL (0.2-1.0) Aspartate Amino Transf (AST/SGOT) 28 U/L (15-37) Alanine Aminotransferase (ALT/SGPT) 23 U/L (14-59) Alkaline Phosphatase 88 U/L (46-116) Total Protein 6.7 g/dL (6.4-8.2) Albumin 2.3 g/dL (3.4-5.0) Albumin/Globulin Ratio 0.5 (1.0-1.7) Test 02/03/20 15:12 02/03/20 16:48 02/03/20 19:41 02/04/20 03:25 Glucose (Fingerstick) 328 mg/dL (70-99) 304 mg/dL (70-99) 327 mg/dL (70-99) White Blood Count 14.0 x10^3/uL (4.0-11.0) Red Blood Count 4.61 x10^6/uL (3.50-5.40) Hemoglobin 11.8 g/dL (12.0-15.5) Hematocrit 37.9 % (36.0-47.0) Mean Corpuscular Volume 82 fL (79-100) Mean Corpuscular Hemoglobin 26 pg (25-35) Mean Corpuscular Hemoglobin Concent 31 g/dL (31-37) Red Cell Distribution Width 16.3 % (11.5-14.5) Platelet Count 248 x10^3/uL (140-400) Neutrophils (%) (Auto) 88 % (31-73) Lymphocytes (%) (Auto) 4 % (24-48) Monocytes (%) (Auto) 8 % (0-9) Eosinophils (%) (Auto) 0 % (0-3) Basophils (%) (Auto) 0 % (0-3) Neutrophils # (Auto) 12.3 x10^3/uL (1.8-7.7) Lymphocytes # (Auto) 0.5 x10^3/uL (1.0-4.8) Monocytes # (Auto) 1.2 x10^3/uL (0.0-1.1) Eosinophils # (Auto) 0.0 x10^3/uL (0.0-0.7) Basophils # (Auto) 0.0 x10^3/uL (0.0-0.2) Sodium Level 140 mmol/L (136-145) Potassium Level 5.4 mmol/L (3.5-5.1) Chloride Level 109 mmol/L (98-107) Carbon Dioxide Level 18 mmol/L (21-32) Anion Gap 13 (6-14) Blood Urea Nitrogen 70 mg/dL (7-20) Creatinine 1.8 mg/dL (0.6-1.0) Estimated GFR (Cockcroft-Gault) 34.1 BUN/Creatinine Ratio 39 (6-20) Glucose Level 483 mg/dL (70-99) Calcium Level 10.0 mg/dL (8.5-10.1) Phosphorus Level 2.4 mg/dL (2.6-4.7) Magnesium Level 2.2 mg/dL (1.8-2.4) Total Bilirubin 0.2 mg/dL (0.2-1.0) Aspartate Amino Transf (AST/SGOT) 21 U/L (15-37) Alanine Aminotransferase (ALT/SGPT) 26 U/L (14-59) Alkaline Phosphatase 93 U/L (46-116) Total Protein 6.3 g/dL (6.4-8.2) Albumin 2.3 g/dL (3.4-5.0) Albumin/Globulin Ratio 0.6 (1.0-1.7) Triglycerides Level 112 mg/dL (0-150) Test 02/04/20 07:27 02/04/20 09:15 02/04/20 11:40 02/04/20 12:15 Glucose (Fingerstick) 526 mg/dL (70-99) 514 mg/dL (70-99) 456 mg/dL (70-99) Urine Collection Type Unknown Urine Color Yellow Urine Clarity Cloudy Urine pH 5.5 (<5.0-8.0) Urine Specific [place] 1.020 (1.000-1.030) Urine Protein >=300 mg/dL (NEG-TRACE) Urine Glucose (UA) >=1000 mg/dL (NEG) Urine Ketones (Stick) Negative mg/dL (NEG) Urine Blood Negative (NEG) Urine Nitrite Positive (NEG) Urine Bilirubin Negative (NEG) Urine Urobilinogen Dipstick 0.2 mg/dL (0.2 mg/dL) Urine Leukocyte Esterase Moderate (NEG) Urine RBC 0 /HPF (0-2) Urine WBC Tntc /HPF (0-4) Urine Squamous Epithelial Cells Occ /LPF Urine Bacteria Many /HPF (0-FEW) Test 02/04/20 16:02 Glucose (Fingerstick) 505 mg/dL (70-99) Laboratory Tests Test 02/03/20 19:41 02/04/20 03:25 02/04/20 07:27 02/04/20 09:15 Glucose (Fingerstick) 327 mg/dL (70-99) 526 mg/dL (70-99) 514 mg/dL (70-99) White Blood Count 14.0 x10^3/uL (4.0-11.0) Red Blood Count 4.61 x10^6/uL (3.50-5.40) Hemoglobin 11.8 g/dL (12.0-15.5) Hematocrit 37.9 % (36.0-47.0) Mean Corpuscular Volume 82 fL (79-100) Mean Corpuscular Hemoglobin 26 pg (25-35) Mean Corpuscular Hemoglobin Concent 31 g/dL (31-37) Red Cell Distribution Width 16.3 % (11.5-14.5) Platelet Count 248 x10^3/uL (140-400) Neutrophils (%) (Auto) 88 % (31-73) Lymphocytes (%) (Auto) 4 % (24-48) Monocytes (%) (Auto) 8 % (0-9) Eosinophils (%) (Auto) 0 % (0-3) Basophils (%) (Auto) 0 % (0-3) Neutrophils # (Auto) 12.3 x10^3/uL (1.8-7.7) Lymphocytes # (Auto) 0.5 x10^3/uL (1.0-4.8) Monocytes # (Auto) 1.2 x10^3/uL (0.0-1.1) Eosinophils # (Auto) 0.0 x10^3/uL (0.0-0.7) Basophils # (Auto) 0.0 x10^3/uL (0.0-0.2) Sodium Level 140 mmol/L (136-145) Potassium Level 5.4 mmol/L (3.5-5.1) Chloride Level 109 mmol/L (98-107) Carbon Dioxide Level 18 mmol/L (21-32) Anion Gap 13 (6-14) Blood Urea Nitrogen 70 mg/dL (7-20) Creatinine 1.8 mg/dL (0.6-1.0) Estimated GFR (Cockcroft-Gault) 34.1 BUN/Creatinine Ratio 39 (6-20) Glucose Level 483 mg/dL (70-99) Calcium Level 10.0 mg/dL (8.5-10.1) Phosphorus Level 2.4 mg/dL (2.6-4.7) Magnesium Level 2.2 mg/dL (1.8-2.4) Total Bilirubin 0.2 mg/dL (0.2-1.0) Aspartate Amino Transf (AST/SGOT) 21 U/L (15-37) Alanine Aminotransferase (ALT/SGPT) 26 U/L (14-59) Alkaline Phosphatase 93 U/L (46-116) Total Protein 6.3 g/dL (6.4-8.2) Albumin 2.3 g/dL (3.4-5.0) Albumin/Globulin Ratio 0.6 (1.0-1.7) Triglycerides Level 112 mg/dL (0-150) Test 02/04/20 11:40 02/04/20 12:15 02/04/20 16:02 Glucose (Fingerstick) 456 mg/dL (70-99) 505 mg/dL (70-99) Urine Collection Type Unknown Urine Color Yellow Urine Clarity Cloudy Urine pH 5.5 (<5.0-8.0) Urine Specific [place] 1.020 (1.000-1.030) Urine Protein >=300 mg/dL (NEG-TRACE) Urine Glucose (UA) >=1000 mg/dL (NEG) Urine Ketones (Stick) Negative mg/dL (NEG) Urine Blood Negative (NEG) Urine Nitrite Positive (NEG) Urine Bilirubin Negative (NEG) Urine Urobilinogen Dipstick 0.2 mg/dL (0.2 mg/dL) Urine Leukocyte Esterase Moderate (NEG) Urine RBC 0 /HPF (0-2) Urine WBC Tntc /HPF (0-4) Urine Squamous Epithelial Cells Occ /LPF Urine Bacteria Many /HPF (0-FEW) Microbiology 02/03/20 Blood Culture - Final, Complete Medications Current Medications Clonidine HCl (Catapres) 0.2 mg 1X ONCE PO Last administered on 01/23/20at 1 7:38; Start 01/23/20 at 17:30; Stop 01/23/20 at 17:31; Status DC Ondansetron HCl (Zofran) 4 mg PRN Q8HRS PRN IV NAUSEA/VOMITING; Start 01/23/20 at 17:45; Stop 01/24/20 at 17:44; Status DC Morphine Sulfate (Morphine Sulfate) 2 mg PRN Q2HR PRN IV PAIN; Start 01/23/20 at 17:45; Stop 01/24/20 at 17:44; Status DC Dextrose/Sodium Chloride 1,000 ml @ 100 mls/hr 1X ONCE IV Last administered on 01/23/20at 19:24; Start 01/23/20 at 17:45; Stop 01/24/20 at 03:44; Status DC Pharmacy Consult (C.diff Med Screen By Rx) 1 each 1X ONCE MC Last administered on 01/24/20at 08:26; Start 01/24/20 at 09:00; Stop 01/24/20 at 09:01; Status DC Labetalol HCl (Normodyne Iv Push) 20 mg PRN Q4HRS PRN IVP HYPERTENSION, 2nd choice Last administered on 01/26/20at 00:17; Start 01/24/20 at 04:15 Clonidine HCl (Catapres Tts-3) 1 patch WEEKLY TD ; Start 01/24/20 at 09:00; Stop 01/24/20 at 05:21; Status DC Piperacillin Sod/ Tazobactam Sod (Zosyn Per Pharmacy) 1 each PRN DAILY PRN MC SEE COMMENTS; Start 01/24/20 at 04:30; Stop 01/24/20 at 09:32; Status DC Piperacillin Sod/ Tazobactam Sod 3.375 gm/Sodium Chloride 50 ml @ 100 mls/hr Q6H IV Last administered on 01/24/20at 05:06; Start 01/24/20 at 05:00; Stop 01/24/20 at 09:30; Status DC Clonidine HCl (Catapres Tts-3) 1 patch WEEKLY TD Last administered on 01/31/20at 08:22; Start 01/24/20 at 16:00; Stop 02/04/20 at 09:59; Status DC Clonidine HCl (Catapres Tts-3) 1 patch 1X ONCE TD ; Start 01/24/20 at 05:30; Stop 01/24/20 at 05:31; Status DC Levetiracetam (Keppra) 500 mg BID PO ; Start 01/24/20 at 09:00; Status Cancel Acetaminophen (Tylenol) 650 mg PRN Q6HRS PRN PO TEMP > 100.4F; Start 01/24/20 at 08:30; Stop 01/26/20 at 12:00; Status DC Acetaminophen (Tylenol Supp) 650 mg PRN Q4HRS PRN MN TEMP > 100.4F Last administered on 02/04/20at 09:45; Start 01/24/20 at 08:30 Aspirin (Ecotrin) 325 mg DAILYWBKFT PO Last administered on 02/03/20at 10:49; Start 01/25/20 at 08:00 Aspirin (Aspirin Rectal Supp) 300 mg PRN DAILY PRN MN IF UNABLE TO TAKE PO Last administered on 02/04/20at 09:56; Start 01/24/20 at 08:30 Lorazepam (Ativan Inj) 2 mg PRN Q4HRS PRN IVP ANXIETY / AGITATION Last administered on 01/24/20at 10:14; Start 01/24/20 at 10:00; Stop 01/24/20 at 16:35; Status DC Acetaminophen (Tylenol) 1,000 mg PRN Q8HRS PRN PO MILD PAIN OR FEVER; Start 01/24/20 at 10:15 Aspirin (Ecotrin) 81 mg DAILY PO ; Start 01/25/20 at 09:00; Status UNV Vitamin B Complex/ Vitamin C (Vicki-Stacey) 1 tab DAILY PO Last administered on 02/03/20at 10:48; Start 01/25/20 at 09:00 Hydralazine HCl (Apresoline) 25 mg BID PO Last administered on 02/03/20at 10:49; Start 01/24/20 at 21:00 Insulin Human Lispro (HumaLOG) 2 units DAILYWLUN SQ Last administered on 02/04/20at 14:43; Start 01/24/20 at 12:00; Stop 02/04/20 at 16:11; Status DC Insulin Human Lispro (HumaLOG) 4 units DAILYWBKFT SQ Last administered on 02/02/20at 09:18; Start 01/25/20 at 08:00; Stop 02/04/20 at 16:11; Status DC Insulin Human Lispro (HumaLOG) 8 units DAILYWSUP SQ Last administered on 02/03/20at 18:17; Start 01/24/20 at 17:00; Stop 02/04/20 at 16:11; Status DC Lisinopril (Prinivil) 20 mg DAILY PO Last administered on 02/01/20at 10:37; Start 01/24/20 at 12:00; Stop 02/02/20 at 11:51; Status DC Prednisone (Prednisone) 2 mg DAILY PO Last administered on 01/26/20at 10:15; Start 01/24/20 at 12:00; Stop 01/26/20 at 12:24; Status DC Quetiapine Fumarate (SEROquel) 25 mg BID PO Last administered on 01/26/20at 21:14; Start 01/24/20 at 12:00; Stop 01/27/20 at 09:52; Status DC Tacrolimus (Prograf) 0.5 mg BID PO Last administered on 02/03/20 10:49; Start 01/24/20 at 12:00 Trazodone HCl (Desyrel) 50 mg QHS PO Last administered on 01/26/20at 21:14; Start 01/24/20 at 21:00; Stop 01/27/20 at 09:52; Status DC Fluconazole (Diflucan) 200 mg DAILY PO Last administered on 02/03/20 10:49; Start 01/24/20 at 11:00; Stop 02/04/20 at 16:17; Status DC Insulin Glargine (Lantus Syringe) 18 unit QHS SQ ; Start 01/24/20 at 21:00; Stop 01/24/20 at 20:59; Status DC Olanzapine (ZyPREXA) 10 mg QHS PO Last administered on 01/26/20 21:14; Start 01/24/20 at 21:00; Stop 01/27/20 at 09:52; Status DC Enoxaparin Sodium (Lovenox 40mg Syringe) 40 mg Q24H SQ Last administered on 01/26/20at 10:12; Start 01/24/20 at 11:00; Stop 01/26/20 at 12:24; Status DC Amino Acids/ Glycerin/ Electrolytes 1,000 ml @ 75 mls/hr [id number] IV Last administered on 01/29/20at 15:50; Start 01/24/20 at 13:45; Stop 01/30/20 at 10:00; Status DC Levetiracetam 500 mg/Dextrose 105 ml @ 420 mls/hr Q12HR IV Last administered on 01/26/20at 21:14; Start 01/24/20 at 13:45; Stop 01/27/20 at 08:47; Status DC Non-Formulary Medication 0.5 ea BID NG Last administered on 01/24/20at 21:12; Start 01/24/20 at 15:00; Stop 01/27/20 at 04:41; Status DC Lorazepam (Ativan Inj) 0.5 mg PRN Q4HRS PRN IVP ANXIETY / AGITATION Last administered on 01/25/20at 06:34; Start 01/24/20 at 16:45 Insulin Glargine (Lantus Syringe) 18 unit QHS SQ Last administered on 02/03/20at 20:15; Start 01/24/20 at 21:00; Stop 02/04/20 at 16:11; Status DC Dextrose (Dextrose 50%-Water Syringe) 12.5 gm PRN Q15MIN PRN IV SEE COMMENTS; Start 01/24/20 at 21:45; Stop 02/04/20 at 11:34; Status DC Enalaprilat (Vasotec Inj) 1.25 mg PRN Q6HRS PRN IVP HYPERTENSION, 1st choice Last administered on 02/04/20at 04:10; Start 01/25/20 at 12:00 Prednisone (Prednisone) 5 mg DAILY PO Last administered on 02/03/20at 10:48; Start 01/27/20 at 09:00 Levetiracetam (Keppra) 500 mg BID PO Last administered on 02/03/20at 10:49; Start 01/27/20 at 09:00; Stop 02/04/20 at 16:15; Status DC Tacrolimus (Prograf Oral Susp) 0.5 mg STK-MED ONCE .ROUTE ; Start 01/24/20 at 21:00; Stop 01/27/20 at 14:30; Status DC Tacrolimus (Prograf Oral Susp) 0.5 mg STK-MED ONCE .ROUTE ; Start 01/24/20 at 21:00; Stop 01/27/20 at 14:30; Status DC Cefazolin Sodium (Ancef) 1 gm 1X ONCE IVP ; Start 01/31/20 at 12:00; Stop 01/31/20 at 12:01; Status DC Ringer's Solution 1,000 ml @ 50 mls/hr Q20H IV ; Start 01/31/20 at 07:00; Stop 01/31/20 at 18:59; Status DC Ringer's Solution 1,000 ml @ 75 mls/hr 1X ONCE IV ; Start 01/31/20 at 08:15; Stop 01/31/20 at 21:34; Status DC Hydralazine HCl (Apresoline Inj) 10 mg PRN Q4HRS PRN IVP ELEVATED BP, 3RD CHOICE Last administered on 01/31/20at 10:55; Start 01/31/20 at 09:45 Propofol (Diprivan) 200 mg STK-MED ONCE IV ; Start 01/31/20 at 13:08; Stop 01/31/20 at 13:09; Status DC Sodium Chloride 1,000 ml @ 100 mls/hr Q10H IV Last administered on 02/04/20at 16:48; Start 02/02/20 at 11:00 Info (Tpn Per Pharmacy) 1 each PRN DAILY PRN MC SEE COMMENTS Last administered on 02/04/20at 13:00; Start 02/03/20 at 10:00 Piperacillin Sod/ Tazobactam Sod 2.25 gm/Sodium Chloride 50 ml @ 100 mls/hr Q6HRS IV Last administered on 02/04/20at 05:57; Start 02/03/20 at 12:00; Stop 02/04/20 at 10:19; Status DC Insulin Human Lispro (HumaLOG) 10 units 1X ONCE SQ Last administered on 02/03/20at 11:10; Start 02/03/20 at 10:30; Stop 02/03/20 at 10:31; Status DC Calcium Gluconate (Calcium Gluconate) 1,000 mg 1X ONCE IVP Last administered on 02/03/20at 10:49; Start 02/03/20 at 10:30; Stop 02/03/20 at 10:31; Status DC Linezolid/Dextrose 300 ml @ 300 mls/hr Q12HR IV Last administered on 02/04/20at 09:41; Start 02/03/20 at 11:00; Stop 02/04/20 at 10:18; Status DC Dextrose (Dextrose 50%-Water Syringe) 25 gm 1X ONCE IV Last administered on 02/03/20at 10:49; Start 02/03/20 at 10:45; Stop 02/03/20 at 10:47; Status DC Lidocaine/ Epinephrine (LIDOCAINE 1%-EPI 1:100,000 Multi-Dose) 20 ml STK-MED ONCE .ROUTE ; Start 02/03/20 at 14:52; Stop 02/03/20 at 14:52; Status DC Sodium Chloride 90 meq/Magnesium Sulfate 5 meq/ Multivitamins 10 ml/Chromium/ Copper/Manganese/ Seleni/Zn 1 ml/ Insulin Human Regular 10 unit/ Total Parenteral Nutrition/Amino Acids/Dextrose/ Fat Emulsion Intravenous 1,512 ml @ 63 mls/hr TPN CONT IV Last administered on 02/03/20at 21:49; Start 02/03/20 at 22:00; Stop 02/04/20 at 21:59 Lidocaine/ Epinephrine (LIDOCAINE 1%-EPI 1:100,000 Multi-Dose) 20 ml 1X ONCE INJ Last administered on 02/03/20at 15:35; Start 02/03/20 at 15:15; Stop 02/03/20 at 15:16; Status DC Heparin Sodium (Porcine) (Hep Lock Adult) 500 unit STK-MED ONCE IVP ; Start 02/03/20 at 15:39; Stop 02/03/20 at 15:39; Status DC Heparin Sodium (Porcine) (Hep Lock Adult) 500 unit 1X ONCE IVP Last administered on 02/03/20at 15:45; Start 02/03/20 at 15:45; Stop 02/03/20 at 15:49; Status DC Insulin Human Lispro (HumaLOG) 15 units 1X ONCE SQ Last administered on 02/04/20at 08:40; Start 02/04/20 at 12:00; Stop 02/04/20 at 12:01; Status DC Insulin Human Lispro (HumaLOG) 0-9 UNITS TIDWMEALS SQ Last administered on 02/04/20at 14:44; Start 02/04/20 at 12:00; Stop 02/04/20 at 16:32; Status DC Dextrose (Dextrose 50%-Water Syringe) 12.5 gm PRN Q15MIN PRN IV SEE COMMENTS; Start 02/04/20 at 08:30 Clonidine HCl (Catapres Tts-1) 1 patch WEEKLY TD Last administered on 02/04/20at 11:36; Start 02/04/20 at 10:00 Heparin Sodium (Porcine) (Heparin Sodium) 5,000 unit Q12HR SQ Last administered on 02/04/20at 11:41; Start 02/04/20 at 10:15 Piperacillin Sod/ Tazobactam Sod 2.25 gm/Sodium Chloride 50 ml @ 100 mls/hr Q6HRS IV Last administered on 02/04/20at 11:36; Start 02/04/20 at 12:00 Sodium Chloride 20 meq/Sodium Acetate 70 meq/ Sodium Phosphate 13.6 mmol/ Magnesium Sulfate 5 meq/ Multivitamins 10 ml/Chromium/ Copper/Manganese/ Seleni/Zn 1 ml/ Insulin Human Regular 30 unit/ Total Parenteral Nutrition/Amino Acids/Dextrose/ Fat Emulsion Intravenous 1,512 ml @ 63 mls/hr TPN CONT IV ; Start 02/04/20 at 22:00; Stop 02/05/20 at 21:59 Insulin Human Regular 100 unit/ Sodium Chloride 101 ml @ 0 mls/hr CONT PRN IV SEE I/O RECORD Last administered on 02/04/20at 16:30; Start 02/04/20 at 16:15 Levetiracetam 500 mg/Dextrose 105 ml @ 420 mls/hr Q12HR IV ; Start 02/04/20 at 21:00 Fluconazole/ Sodium Chloride 100 ml @ 100 mls/hr Q24H IV Last administered on 02/04/20at 16:47; Start 02/04/20 at 17:00 Active Scripts Active Diflucan (Fluconazole) 100 Mg Tablet 200 Mg PO DAILY Reported Zyprexa (Olanzapine) 10 Mg Tablet 1 Tab PO QHS Trazodone Hcl 50 Mg Tablet 1 Tab PO QHS Seroquel (Quetiapine Fumarate) 25 Mg Tablet 25 Mg PO BID Humalog (Insulin Lispro) 100 Unit/1 Ml Vial 2 Unit SQ [id number] Lisinopril 20 Mg Tablet 1 Tab PO DAILY Acetaminophen 500 Mg Tablet 2 Tab PO PRN Q8HRS PRN 15 Days Prednisone 1 Mg Tablet 2 Mg PO DAILY Humalog (Insulin Lispro) 100 Unit/1 Ml Vial 8 Unit SQ [id number] Humalog (Insulin Lispro) 100 Unit/1 Ml Vial 4 Unit SQ [id number] Hydralazine Hcl 25 Mg Tablet 1 Tab PO BID Aspir-Low (Aspirin) 81 Mg Tablet. 1 Tab PO DAILY Prograf (Tacrolimus) 1 Mg Capsule 0.5 Mg PO BID Levemir (Insulin Detemir) 100 Unit/1 Ml Vial 18 Unit SQ QHS Hold for FSBS below 90 and call Nephro-Stacey Tablet (Folic Acid/Vitamin B Comp W-C) 0.8 Mg Tablet 1 Tab PO DAILY Levetiracetam 500 Mg Tablet 500 Mg PO BID Vitals/I & O Vital Sign - Last 24 Hours 02/03/20 02/03/20 02/03/20 02/04/20 19:00 20:05 23:00 03:00 Temp 98.5 98.7 98.4 98.5 98.7 98.4 Pulse 79 88 103 Resp 18 18 18 B/P (MAP) 136/50 (78) 164/76 (105) 197/75 (115) Pulse Ox 98 98 100 O2 Delivery Room Air Room Air Room Air Room Air 02/04/20 02/04/20 02/04/20 02/04/20 04:10 07:20 09:00 11:12 Temp 97.7 98.0 97.7 98.0 Pulse 103 102 88 Resp 16 18 B/P (MAP) 197/75 210/81 (124) 173/69 (103) Pulse Ox 96 82 O2 Delivery Room Air Room Air Room Air 02/04/20 15:04 Temp 98.2 98.2 Pulse 100 Resp 22 B/P (MAP) 161/65 (97) Pulse Ox 95 O2 Delivery Room Air Intake and Output 02/03/20 02/03/20 02/04/20 15:00 23:00 07:00 Intake Total 120 ml 50 ml 0 ml Balance 120 ml 50 ml 0 ml Nutrition Consultation Dietary Evaluation: Recommendations by RD: Dietary education by RD, PPN/TPN Comments: NPO per [facility] [employer] REC TPN: 195 g dextrose, 60 g AA, 20 g lipid until G tube placed and able to start TF Expected Outcomes/Goals: New goal 02/02: to meet >75% est nutr needs via TPN Malnutrition Findings: Body Fat Depletion (Non Severe: Mild Depletion Weight Status: Appropriate MADI CHAVEZ MD Feb 04, 2020 17:11
[2020-02-04 19:51] VITALS: BP 222/76
[2020-02-04] MEDS: levETIRAcetam 500 MG in IV DEXTROSE 5% 100ML 100 ML IV SCH (20:03)
[2020-02-04] MEDS ORDERED: AMINO ACID IV SCH ×10 (22:00)
[2020-02-04] MEDS ORDERED: TOTAL PARENTERAL NUTRITION IV SCH ×10 (22:00)
[2020-02-04] MEDS ORDERED: [UNRECOGNIZED DRUG - OTHER] IV SCH ×10 (22:00)
[2020-02-04] MEDS ORDERED: DEXTROSE 70% IV SCH ×10 (22:00)
[2020-02-04 23:37] VITALS: BP 198/69
[2020-02-04] MEDS: LABETALOL 20 MG/4 ML DISP.SYRIN. IVP PRN (23:44)
[2020-02-05] VITALS (18 sets, daily range): BP systolic 96–231; BP diastolic 40–101
[2020-02-05 03:41] LABS: BASO % 0 % (0-3); EOS % 0 % (0-3); HEMATOCRIT 37.5 % (36.0-47.0); HEMOGLOBIN 11.9 g/dL (12.0-15.5); LYMPH # 0.6 x10^3/uL (1.0-4.8); LYMPH % 5 % (24-48); MEAN CORPUSCULAR HEMOGLOBIN 25 pg (25-35); MEAN CORPUSCULAR HGB CONC 32 g/dL (31-37); MEAN CORPUSCULAR VOLUME 80 fL (79-100); MONO # 1.5 x10^3/uL (0.0-1.1); MONO % 12 % (0-9); NEUT # 10.5 x10^3/uL (1.8-7.7); NEUT % 83 % (31-73); PLATELET COUNT 293 x10^3/uL (140-400); RED BLOOD COUNT 4.68 x10^6/uL (3.50-5.40); RED CELL DISTRIBUTION WIDTH 16.4 % (11.5-14.5); WHITE BLOOD COUNT 12.7 x10^3/uL (4.0-11.0)
[2020-02-05 03:54] LABS: CALCIUM 10.8 mg/dL (8.5-10.1); CREATININE 1.5 mg/dL (0.6-1.0); MAGNESIUM 1.7 mg/dL (1.8-2.4); PHOSPHORUS 1.3 mg/dL (2.6-4.7); POTASSIUM 3.1 mmol/L (3.5-5.1)
[2020-02-05] MEDS: ENALAPRILAT 1.25 MG/ML VIAL. IVP PRN ×2 (04:17→09:55)
[2020-02-05] MEDS: PIPERACILLIN/TAZOBACTAM 2.25 GM in IV NORMAL SALINE 50ML 50 ML IV SCH ×3 (05:24→18:00)
[2020-02-05] MEDS: predniSONE 5 MG TABLET PO SCH (07:38)
[2020-02-05] MEDS: hydrALAZINE 25 MG TABLET PO SCH ×2 (07:38→21:00)
[2020-02-05] MEDS: ASPIRIN ENTERIC COATED 325 MG TABLET.DR. PO SCH (07:38)
[2020-02-05] MEDS: FOLIC/VIT B COMP W-C (RENAL) TABLET. PO SCH (07:38)
[2020-02-05] MEDS: TACROLIMUS 0.5 MG CAPSULE PO SCH (07:38)
[2020-02-05] MEDS: HEPARIN for SUB-Q USE 5,000 UNIT/ML VIAL. SQ SCH ×2 (09:00→23:24)
--- NOTE | 2020-02-05 09:19 | RAD ---
CT HEAD WO CONTRAST History:Altered mental status Comparison: March 30, 2019 Technique: Noncontrast CT imaging was performed of the head. Exposure: One or more of the following individualized dose reduction techniques were utilized for this examination: 1. Automated exposure control 2. Adjustment of the mA and/or kV according to patient size 3. Use of iterative reconstruction technique. Findings: There is again encephalomalacia with cortical involvement centered in the right parietal lobe extending to the right occipital lobe. There is other ill-defined low-density of the supratentorial parenchyma bilaterally. There are old lacunar infarcts of the right basal ganglia and thalamus and also left basal ganglia as seen previously. No acute hyperdense intracranial hemorrhage is identified. There is no new midline shift. Ventricular size is stable. There is mild lateral ventriculomegaly likely due to component of supratentorial involutional change. There is atherosclerotic calcification of the bilateral carotid siphons and intradural vertebral arteries. Visualized paranasal sinuses are mostly aerated other than very minimal focal mucosal thickening or mucous retention cyst of the left ethmoid air cell and also probable small right maxillary sinus mucous retention cyst. Mastoid air cells are aerated. Impression: 1. No acute intracranial hemorrhage is identified. There is again old infarct with cortical involvement of centered in the right parietal lobe extending to the right occipital lobe. There is other ill-defined low-density of the supratentorial parenchyma, nonspecific findings which may be due to chronic microvascular ischemic disease. There are also old lacunar infarcts as stated. If there is suspicion for evolving or acute ischemia, follow-up CT or MRI could be beneficial. Electronically signed by: Alejandro Ghosh MD (02/05/2020 9:16 AM) [id number]
--- NOTE | 2020-02-05 09:24 | PDOC ---
PROGRESS NOTES Subjective Subjective pt lethargic today ,change in mental status Objective Objective Vital Signs Date Time Temp Pulse Resp B/P (MAP) Pulse Ox O2 Delivery O2 Flow Rate FiO2 02/05/20 07:47 99.2 86 22 203/80 (121) 99 Room Air 99.2 Intake and Output 02/05/20 07:00 Intake Total 3609.9 ml Output Total 500 ml Balance 3109.9 ml Intake Oral 0 ml IV Total 3609.9 ml Output Urine Total 500 ml # Voids 8 Physical Exam Abdomen: Soft Heart: Regular rate Extremities: No clubbing, No cyanosis HEENT: Atraumatic Lungs: Clear to auscultation MUSCULOSKELETAL: No deformity, No swelling Neuro: Other ( lethargic) Skin: No rashes, No breakdown Diagnosis Problem List Problems Medical Problems: (1) Cough Status: Acute (2) Left-sided weakness Status: Acute Assessment Assessment Problems Medical Problems: (1) Cough Status: Acute (2) Left-sided weakness Status: Acute encephalopathy/mental status changes Acute sepsis , gram neg bacteremia,positive blood c/s 2/4 bottles high sugars due to TPN Metabolic Encephalopathy. Brain MRI neg acute findings , old CVA History of epilepsy. Diabetes with peripheral neuropathy. h/o disseminated cryptococcus, on fluconazole. Gastroesophageal reflux disease. History of kidney transplant. Peripheral arterial disease. Chronic kidney disease, status post renal transplant. Coronary artery disease.s/p cabg COVID-19 neg, 01/23 Plan Plan of Care: stat CT head family deciding on code status positive blood c/s 2/4 gram neg, urine c/s -positive for infection cxr infiltrates both lungs wbc 20 down to 12 bun 99/cr 2.9 down to 70 /1.9 today bun 45/cr 1.7 central line placed TPN started iv Zosyn + for pneumonia monitor kidney function not stable for feeding tube surgery lovenox for DVT prevention insulin drip for sugars in 500 range Plan Plan of Care Problems Medical Problems: (1) Cough Status: Acute (2) Left-sided weakness Status: Acute Comment Review of Relevant I have reviewed the following items warner (where applicable) has been applied. Labs Laboratory Tests Test 02/04/20 11:40 02/04/20 12:15 02/04/20 16:02 02/04/20 17:38 Glucose (Fingerstick) 456 mg/dL (70-99) 505 mg/dL (70-99) 468 mg/dL (70-99) Urine Collection Type Unknown Urine Color Yellow Urine Clarity Cloudy Urine pH 5.5 (<5.0-8.0) Urine Specific [place] 1.020 (1.000-1.030) Urine Protein >=300 mg/dL (NEG-TRACE) Urine Glucose (UA) >=1000 mg/dL (NEG) Urine Ketones (Stick) Negative mg/dL (NEG) Urine Blood Negative (NEG) Urine Nitrite Positive (NEG) Urine Bilirubin Negative (NEG) Urine Urobilinogen Dipstick 0.2 mg/dL (0.2 mg/dL) Urine Leukocyte Esterase Moderate (NEG) Urine RBC 0 /HPF (0-2) Urine WBC Tntc /HPF (0-4) Urine Squamous Epithelial Cells Occ /LPF Urine Bacteria Many /HPF (0-FEW) Test 02/04/20 18:42 02/04/20 19:30 02/04/20 20:34 02/04/20 21:05 Glucose (Fingerstick) 469 mg/dL (70-99) 348 mg/dL (70-99) 338 mg/dL (70-99) Lactic Acid Level 2.0 mmol/L (0.4-2.0) Test 02/04/20 21:50 02/04/20 22:45 02/05/20 00:00 02/05/20 01:00 Glucose (Fingerstick) 299 mg/dL (70-99) 218 mg/dL (70-99) 212 mg/dL (70-99) 173 mg/dL (70-99) Test 02/05/20 02:05 02/05/20 03:00 02/05/20 03:11 02/05/20 04:05 Glucose (Fingerstick) 141 mg/dL (70-99) 127 mg/dL (70-99) 119 mg/dL (70-99) White Blood Count 12.7 x10^3/uL (4.0-11.0) Red Blood Count 4.68 x10^6/uL (3.50-5.40) Hemoglobin 11.9 g/dL (12.0-15.5) Hematocrit 37.5 % (36.0-47.0) Mean Corpuscular Volume 80 fL (79-100) Mean Corpuscular Hemoglobin 25 pg (25-35) Mean Corpuscular Hemoglobin Concent 32 g/dL (31-37) Red Cell Distribution Width 16.4 % (11.5-14.5) Platelet Count 293 x10^3/uL (140-400) Neutrophils (%) (Auto) 83 % (31-73) Lymphocytes (%) (Auto) 5 % (24-48) Monocytes (%) (Auto) 12 % (0-9) Eosinophils (%) (Auto) 0 % (0-3) Basophils (%) (Auto) 0 % (0-3) Neutrophils # (Auto) 10.5 x10^3/uL (1.8-7.7) Lymphocytes # (Auto) 0.6 x10^3/uL (1.0-4.8) Monocytes # (Auto) 1.5 x10^3/uL (0.0-1.1) Eosinophils # (Auto) 0.0 x10^3/uL (0.0-0.7) Basophils # (Auto) 0.0 x10^3/uL (0.0-0.2) Sodium Level 147 mmol/L (136-145) Potassium Level 3.1 mmol/L (3.5-5.1) Chloride Level 113 mmol/L (98-107) Carbon Dioxide Level 21 mmol/L (21-32) Anion Gap 13 (6-14) Blood Urea Nitrogen 46 mg/dL (7-20) Creatinine 1.5 mg/dL (0.6-1.0) Estimated GFR (Cockcroft-Gault) 42.0 Glucose Level 149 mg/dL (70-99) Calcium Level 10.8 mg/dL (8.5-10.1) Phosphorus Level 1.3 mg/dL (2.6-4.7) Magnesium Level 1.7 mg/dL (1.8-2.4) Test 02/05/20 05:26 02/05/20 06:32 02/05/20 07:39 02/05/20 08:45 Glucose (Fingerstick) 112 mg/dL (70-99) 114 mg/dL (70-99) 122 mg/dL (70-99) 130 mg/dL (70-99) Microbiology 02/03/20 Blood Culture - Final, Complete Medications Current Medications Clonidine HCl (Catapres Tts-1) 1 patch WEEKLY TD Last administered on 02/04/20at 11:36; Start 02/04/20 at 10:00 Fluconazole/ Sodium Chloride 100 ml @ 100 mls/hr Q24H IV Last administered on 02/04/20at 16:47; Start 02/04/20 at 17:00 Heparin Sodium (Porcine) (Heparin Sodium) 5,000 unit Q12HR SQ Last administered on 02/04/20at 20:08; Start 02/04/20 at 10:15 Insulin Human Lispro (HumaLOG) 0-9 UNITS TIDWMEALS SQ Last administered on 02/04/20at 14:44; Start 02/04/20 at 12:00; Stop 02/04/20 at 16:32; Status DC Insulin Human Lispro (HumaLOG) 15 units 1X ONCE SQ Last administered on 02/04/20at 08:40; Start 02/04/20 at 12:00; Stop 02/04/20 at 12:01; Status DC Insulin Human Regular 100 unit/ Sodium Chloride 101 ml @ 0 mls/hr CONT PRN IV SEE I/O RECORD Last administered on 02/04/20at 21:30; Start 02/04/20 at 16:15 Levetiracetam 500 mg/Dextrose 105 ml @ 420 mls/hr Q12HR IV Last administered on 02/04/20at 20:03; Start 02/04/20 at 21:00 Piperacillin Sod/ Tazobactam Sod 2.25 gm/Sodium Chloride 50 ml @ 100 mls/hr Q6HRS IV Last administered on 02/05/20at 05:24; Start 02/04/20 at 12:00 Sodium Chloride 20 meq/Sodium Acetate 70 meq/ Sodium Phosphate 13.6 mmol/ Magnesium Sulfate 5 meq/ Multivitamins 10 ml/Chromium/ Copper/Manganese/ Seleni/Zn 1 ml/ Insulin Human Regular 30 unit/ Total Parenteral Nutrition/Amino Acids/Dextrose/ Fat Emulsion Intravenous 1,512 ml @ 63 mls/hr TPN CONT IV Last administered on 02/04/20at 21:28; Start 02/04/20 at 22:00; Stop 02/05/20 at 21:59 Vitals/I & O Vital Sign - Last 24 Hours 02/04/20 02/04/20 02/04/20 02/04/20 11:12 15:04 19:51 20:00 Temp 98.0 98.2 98.4 98.0 98.2 98.4 Pulse 88 100 94 Resp 18 22 20 B/P (MAP) 173/69 (103) 161/65 (97) 222/76 (124) Pulse Ox 82 95 99 O2 Delivery Room Air Room Air Room Air Room Air 02/04/20 02/04/20 02/04/20 02/05/20 20:01 23:37 23:44 03:58 Temp 98.0 98.3 98.0 98.3 Pulse 94 101 101 94 Resp 18 20 B/P (MAP) 222/76 198/69 (112) 198/69 194/93 (126) Pulse Ox 97 99 O2 Delivery Room Air Room Air 02/05/20 02/05/20 04:17 07:47 Temp 99.2 99.2 Pulse 94 86 Resp 22 B/P (MAP) 194/93 203/80 (121) Pulse Ox 99 O2 Delivery Room Air Intake and Output 02/04/20 02/04/20 02/05/20 15:00 23:00 07:00 Intake Total 350 ml 2309.9 ml 950 ml Output Total 500 ml Balance -150 ml 2309.9 ml 950 ml Justicifation of Admission Dx: Justifications for Admission: Justification of Admission Dx: Yes Comminuty Aquired Pneumonia: Immunocomprimised Pt Sepsis: Altered Mental Status Altered Mental Status: Altered Mental Status Nutrition Consultation Dietary Evaluation: Recommendations by RD: Dietary education by RD, PPN/TPN Comments: NPO per [facility] REC TPN: 195 g dextrose, 60 g AA, 20 g lipid until G tube placed and able to start TF Expected Outcomes/Goals: New goal 02/02: to meet >75% est nutr needs via TPN Malnutrition Findings: Body Fat Depletion (Non Severe: Mild Depletion Weight Status: Appropriate AUGUSTO BRUNER MD Feb 05, 2020 09:24
--- NOTE | 2020-02-05 09:48 | PDOC ---
PROGRESS NOTES Subjective Subjective lethargic Objective Objective Vital Signs Date Time Temp Pulse Resp B/P (MAP) Pulse Ox O2 Delivery O2 Flow Rate FiO2 02/05/20 07:47 99.2 86 22 203/80 (121) 99 Room Air 99.2 02/01/20 20:00 2.0 Intake and Output 02/05/20 07:00 Intake Total 3609.9 ml Output Total 500 ml Balance 3109.9 ml Intake Oral 0 ml IV Total 3609.9 ml Output Urine Total 500 ml # Voids 8 Assessment Assessment Problems Medical Problems: (1) Cough Status: Acute (2) Left-sided weakness Status: Acute Plan Plan of Care Not ready for surgical placement of Gtube; will follow Comment Review of Relevant I have reviewed the following items warner (where applicable) has been applied. Labs Laboratory Tests Test 02/03/20 12:46 02/03/20 15:12 02/03/20 16:48 02/03/20 19:41 Glucose (Fingerstick) 347 mg/dL (70-99) 328 mg/dL (70-99) 304 mg/dL (70-99) 327 mg/dL (70-99) Test 02/04/20 03:25 02/04/20 07:27 02/04/20 09:15 02/04/20 11:40 White Blood Count 14.0 x10^3/uL (4.0-11.0) Red Blood Count 4.61 x10^6/uL (3.50-5.40) Hemoglobin 11.8 g/dL (12.0-15.5) Hematocrit 37.9 % (36.0-47.0) Mean Corpuscular Volume 82 fL (79-100) Mean Corpuscular Hemoglobin 26 pg (25-35) Mean Corpuscular Hemoglobin Concent 31 g/dL (31-37) Red Cell Distribution Width 16.3 % (11.5-14.5) Platelet Count 248 x10^3/uL (140-400) Neutrophils (%) (Auto) 88 % (31-73) Lymphocytes (%) (Auto) 4 % (24-48) Monocytes (%) (Auto) 8 % (0-9) Eosinophils (%) (Auto) 0 % (0-3) Basophils (%) (Auto) 0 % (0-3) Neutrophils # (Auto) 12.3 x10^3/uL (1.8-7.7) Lymphocytes # (Auto) 0.5 x10^3/uL (1.0-4.8) Monocytes # (Auto) 1.2 x10^3/uL (0.0-1.1) Eosinophils # (Auto) 0.0 x10^3/uL (0.0-0.7) Basophils # (Auto) 0.0 x10^3/uL (0.0-0.2) Sodium Level 140 mmol/L (136-145) Potassium Level 5.4 mmol/L (3.5-5.1) Chloride Level 109 mmol/L (98-107) Carbon Dioxide Level 18 mmol/L (21-32) Anion Gap 13 (6-14) Blood Urea Nitrogen 70 mg/dL (7-20) Creatinine 1.8 mg/dL (0.6-1.0) Estimated GFR (Cockcroft-Gault) 34.1 BUN/Creatinine Ratio 39 (6-20) Glucose Level 483 mg/dL (70-99) Calcium Level 10.0 mg/dL (8.5-10.1) Phosphorus Level 2.4 mg/dL (2.6-4.7) Magnesium Level 2.2 mg/dL (1.8-2.4) Total Bilirubin 0.2 mg/dL (0.2-1.0) Aspartate Amino Transf (AST/SGOT) 21 U/L (15-37) Alanine Aminotransferase (ALT/SGPT) 26 U/L (14-59) Alkaline Phosphatase 93 U/L (46-116) Total Protein 6.3 g/dL (6.4-8.2) Albumin 2.3 g/dL (3.4-5.0) Albumin/Globulin Ratio 0.6 (1.0-1.7) Triglycerides Level 112 mg/dL (0-150) Glucose (Fingerstick) 526 mg/dL (70-99) 514 mg/dL (70-99) 456 mg/dL (70-99) Test 02/04/20 12:15 02/04/20 16:02 02/04/20 17:38 02/04/20 18:42 Urine Collection Type Unknown Urine Color Yellow Urine Clarity Cloudy Urine pH 5.5 (<5.0-8.0) Urine Specific [place] 1.020 (1.000-1.030) Urine Protein >=300 mg/dL (NEG-TRACE) Urine Glucose (UA) >=1000 mg/dL (NEG) Urine Ketones (Stick) Negative mg/dL (NEG) Urine Blood Negative (NEG) Urine Nitrite Positive (NEG) Urine Bilirubin Negative (NEG) Urine Urobilinogen Dipstick 0.2 mg/dL (0.2 mg/dL) Urine Leukocyte Esterase Moderate (NEG) Urine RBC 0 /HPF (0-2) Urine WBC Tntc /HPF (0-4) Urine Squamous Epithelial Cells Occ /LPF Urine Bacteria Many /HPF (0-FEW) Glucose (Fingerstick) 505 mg/dL (70-99) 468 mg/dL (70-99) 469 mg/dL (70-99) Test 02/04/20 19:30 02/04/20 20:34 02/04/20 21:05 02/04/20 21:50 Glucose (Fingerstick) 348 mg/dL (70-99) 338 mg/dL (70-99) 299 mg/dL (70-99) Lactic Acid Level 2.0 mmol/L (0.4-2.0) Test 02/04/20 22:45 02/05/20 00:00 02/05/20 01:00 02/05/20 02:05 Glucose (Fingerstick) 218 mg/dL (70-99) 212 mg/dL (70-99) 173 mg/dL (70-99) 141 mg/dL (70-99) Test 02/05/20 03:00 02/05/20 03:11 02/05/20 04:05 02/05/20 05:26 White Blood Count 12.7 x10^3/uL (4.0-11.0) Red Blood Count 4.68 x10^6/uL (3.50-5.40) Hemoglobin 11.9 g/dL (12.0-15.5) Hematocrit 37.5 % (36.0-47.0) Mean Corpuscular Volume 80 fL (79-100) Mean Corpuscular Hemoglobin 25 pg (25-35) Mean Corpuscular Hemoglobin Concent 32 g/dL (31-37) Red Cell Distribution Width 16.4 % (11.5-14.5) Platelet Count 293 x10^3/uL (140-400) Neutrophils (%) (Auto) 83 % (31-73) Lymphocytes (%) (Auto) 5 % (24-48) Monocytes (%) (Auto) 12 % (0-9) Eosinophils (%) (Auto) 0 % (0-3) Basophils (%) (Auto) 0 % (0-3) Neutrophils # (Auto) 10.5 x10^3/uL (1.8-7.7) Lymphocytes # (Auto) 0.6 x10^3/uL (1.0-4.8) Monocytes # (Auto) 1.5 x10^3/uL (0.0-1.1) Eosinophils # (Auto) 0.0 x10^3/uL (0.0-0.7) Basophils # (Auto) 0.0 x10^3/uL (0.0-0.2) Sodium Level 147 mmol/L (136-145) Potassium Level 3.1 mmol/L (3.5-5.1) Chloride Level 113 mmol/L (98-107) Carbon Dioxide Level 21 mmol/L (21-32) Anion Gap 13 (6-14) Blood Urea Nitrogen 46 mg/dL (7-20) Creatinine 1.5 mg/dL (0.6-1.0) Estimated GFR (Cockcroft-Gault) 42.0 Glucose Level 149 mg/dL (70-99) Calcium Level 10.8 mg/dL (8.5-10.1) Phosphorus Level 1.3 mg/dL (2.6-4.7) Magnesium Level 1.7 mg/dL (1.8-2.4) Glucose (Fingerstick) 127 mg/dL (70-99) 119 mg/dL (70-99) 112 mg/dL (70-99) Test 02/05/20 06:32 02/05/20 07:39 02/05/20 08:45 02/05/20 09:43 Glucose (Fingerstick) 114 mg/dL (70-99) 122 mg/dL (70-99) 130 mg/dL (70-99) 132 mg/dL (70-99) Laboratory Tests Test 02/04/20 11:40 02/04/20 12:15 02/04/20 16:02 02/04/20 17:38 Glucose (Fingerstick) 456 mg/dL (70-99) 505 mg/dL (70-99) 468 mg/dL (70-99) Urine Collection Type Unknown Urine Color Yellow Urine Clarity Cloudy Urine pH 5.5 (<5.0-8.0) Urine Specific [place] 1.020 (1.000-1.030) Urine Protein >=300 mg/dL (NEG-TRACE) Urine Glucose (UA) >=1000 mg/dL (NEG) Urine Ketones (Stick) Negative mg/dL (NEG) Urine Blood Negative (NEG) Urine Nitrite Positive (NEG) Urine Bilirubin Negative (NEG) Urine Urobilinogen Dipstick 0.2 mg/dL (0.2 mg/dL) Urine Leukocyte Esterase Moderate (NEG) Urine RBC 0 /HPF (0-2) Urine WBC Tntc /HPF (0-4) Urine Squamous Epithelial Cells Occ /LPF Urine Bacteria Many /HPF (0-FEW) Test 02/04/20 18:42 02/04/20 19:30 02/04/20 20:34 02/04/20 21:05 Glucose (Fingerstick) 469 mg/dL (70-99) 348 mg/dL (70-99) 338 mg/dL (70-99) Lactic Acid Level 2.0 mmol/L (0.4-2.0) Test 02/04/20 21:50 02/04/20 22:45 02/05/20 00:00 02/05/20 01:00 Glucose (Fingerstick) 299 mg/dL (70-99) 218 mg/dL (70-99) 212 mg/dL (70-99) 173 mg/dL (70-99) Test 02/05/20 02:05 02/05/20 03:00 02/05/20 03:11 02/05/20 04:05 Glucose (Fingerstick) 141 mg/dL (70-99) 127 mg/dL (70-99) 119 mg/dL (70-99) White Blood Count 12.7 x10^3/uL (4.0-11.0) Red Blood Count 4.68 x10^6/uL (3.50-5.40) Hemoglobin 11.9 g/dL (12.0-15.5) Hematocrit 37.5 % (36.0-47.0) Mean Corpuscular Volume 80 fL (79-100) Mean Corpuscular Hemoglobin 25 pg (25-35) Mean Corpuscular Hemoglobin Concent 32 g/dL (31-37) Red Cell Distribution Width 16.4 % (11.5-14.5) Platelet Count 293 x10^3/uL (140-400) Neutrophils (%) (Auto) 83 % (31-73) Lymphocytes (%) (Auto) 5 % (24-48) Monocytes (%) (Auto) 12 % (0-9) Eosinophils (%) (Auto) 0 % (0-3) Basophils (%) (Auto) 0 % (0-3) Neutrophils # (Auto) 10.5 x10^3/uL (1.8-7.7) Lymphocytes # (Auto) 0.6 x10^3/uL (1.0-4.8) Monocytes # (Auto) 1.5 x10^3/uL (0.0-1.1) Eosinophils # (Auto) 0.0 x10^3/uL (0.0-0.7) Basophils # (Auto) 0.0 x10^3/uL (0.0-0.2) Sodium Level 147 mmol/L (136-145) Potassium Level 3.1 mmol/L (3.5-5.1) Chloride Level 113 mmol/L (98-107) Carbon Dioxide Level 21 mmol/L (21-32) Anion Gap 13 (6-14) Blood Urea Nitrogen 46 mg/dL (7-20) Creatinine 1.5 mg/dL (0.6-1.0) Estimated GFR (Cockcroft-Gault) 42.0 Glucose Level 149 mg/dL (70-99) Calcium Level 10.8 mg/dL (8.5-10.1) Phosphorus Level 1.3 mg/dL (2.6-4.7) Magnesium Level 1.7 mg/dL (1.8-2.4) Test 02/05/20 05:26 02/05/20 06:32 02/05/20 07:39 02/05/20 08:45 Glucose (Fingerstick) 112 mg/dL (70-99) 114 mg/dL (70-99) 122 mg/dL (70-99) 130 mg/dL (70-99) Test 02/05/20 09:43 Glucose (Fingerstick) 132 mg/dL (70-99) Microbiology 02/03/20 Blood Culture - Final, Complete Medications Current Medications Clonidine HCl (Catapres) 0.2 mg 1X ONCE PO Last administered on 01/23/20at 17:38; Start 01/23/20 at 17:30; Stop 01/23/20 at 17:31; Status DC Ondansetron HCl (Zofran) 4 mg PRN Q8HRS PRN IV NAUSEA/VOMITING; Start 01/23/20 at 17:45; Stop 01/24/20 at 17:44; Status DC Morphine Sulfate (Morphine Sulfate) 2 mg PRN Q2HR PRN IV PAIN; Start 01/23/20 at 17:45; Stop 01/24/20 at 17:44; Status DC Dextrose/Sodium Chloride 1,000 ml @ 100 mls/hr 1X ONCE IV Last administered on 01/23/20at 19:24; Start 01/23/20 at 17:45; Stop 01/24/20 at 03:44; Status DC Pharmacy Consult (C.diff Med Screen By Rx) 1 each 1X ONCE MC Last administered on 01/24/20at 08:26; Start 01/24/20 at 09:00; Stop 01/24/20 at 09:01; Status DC Labetalol HCl (Normodyne Iv Push) 20 mg PRN Q4HRS PRN IVP HYPERTENSION, 2nd choice Last administered on 02/04/20at 23:44; Start 01/24/20 at 04:15 Clonidine HCl (Catapres Tts-3) 1 patch WEEKLY TD ; Start 01/24/20 at 09:00; Stop 01/24/20 at 05:21; Status DC Piperacillin Sod/ Tazobactam Sod (Zosyn Per Pharmacy) 1 each PRN DAILY PRN MC SEE COMMENTS; Start 01/24/20 at 04:30; Stop 01/24/20 at 09:32; Status DC Piperacillin Sod/ Tazobactam Sod 3.375 gm/Sodium Chloride 50 ml @ 100 mls/hr Q6H IV Last administered on 01/24/20at 05:06; Start 01/24/20 at 05:00; Stop 01/24/20 at 09:30; Status DC Clonidine HCl (Catapres Tts-3) 1 patch WEEKLY TD Last administered on 01/31/20 08:22; Start 01/24/20 at 16:00; Stop 02/04/20 at 09:59; Status DC Clonidine HCl (Catapres Tts-3) 1 patch 1X ONCE TD ; Start 01/24/20 at 05:30; Stop 01/24/20 at 05:31; Status DC Levetiracetam (Keppra) 500 mg BID PO ; Start 01/24/20 at 09:00; Status Cancel Acetaminophen (Tylenol) 650 mg PRN Q6HRS PRN PO TEMP > 100.4F; Start 01/24/20 at 08:30; Stop 01/26/20 at 12:00; Status DC Acetaminophen (Tylenol Supp) 650 mg PRN Q4HRS PRN [place] TEMP > 100.4F Last administered on 02/04/20at 09:45; Start 01/24/20 at 08:30 Aspirin (Ecotrin) 325 mg DAILYWBKFT PO Last administered on 02/03/20 10:49; Start 01/25/20 at 08:00 Aspirin (Aspirin Rectal Supp) 300 mg PRN DAILY PRN [place] IF UNABLE TO TAKE PO Last administered on 02/04/20 09:56; Start 01/24/20 at 08:30 Lorazepam (Ativan Inj) 2 mg PRN Q4HRS PRN IVP ANXIETY / AGITATION Last administered on 01/24/20at 10:14; Start 01/24/20 at 10:00; Stop 01/24/20 at 16:35; Status DC Acetaminophen (Tylenol) 1,000 mg PRN Q8HRS PRN PO MILD PAIN OR FEVER; Start 01/24/20 at 10:15 Aspirin (Ecotrin) 81 mg DAILY PO ; Start 01/25/20 at 09:00; Status UNV Vitamin B Complex/ Vitamin C (Vicki-Stacey) 1 tab DAILY PO Last administered on 02/03/20 10:48; Start 01/25/20 at 09:00 Hydralazine HCl (Apresoline) 25 mg BID PO Last administered on 02/03/20 10:49; Start 01/24/20 at 21:00 Insulin Human Lispro (HumaLOG) 2 units DAILYWLUN SQ Last administered on 6/9/20at 14:43; Start 01/24/20 at 12:00; Stop 02/04/20 at 16:11; Status DC Insulin Human Lispro (HumaLOG) 4 units DAILYWBKFT SQ Last administered on 02/02/20 09:18; Start 01/25/20 at 08:00; Stop 02/04/20 at 16:11; Status DC Insulin Human Lispro (HumaLOG) 8 units DAILYWSUP SQ Last administered on 02/03/20at 18:17; Start 01/24/20 at 17:00; Stop 02/04/20 at 16:11; Status DC Lisinopril (Prinivil) 20 mg DAILY PO Last administered on 02/01/20at 10:37; Start 01/24/20 at 12:00; Stop 02/02/20 at 11:51; Status DC Prednisone (Prednisone) 2 mg DAILY PO Last administered on 01/26/20at 10:15; Start 01/24/20 at 12:00; Stop 01/26/20 at 12:24; Status DC Quetiapine Fumarate (SEROquel) 25 mg BID PO Last administered on 01/26/20at 21:14; Start 01/24/20 at 12:00; Stop 01/27/20 at 09:52; Status DC Tacrolimus (Prograf) 0.5 mg BID PO Last administered on 02/03/20 10:49; Start 01/24/20 at 12:00 Trazodone HCl (Desyrel) 50 mg QHS PO Last administered on 01/26/20at 21:14; Start 01/24/20 at 21:00; Stop 01/27/20 at 09:52; Status DC Fluconazole (Diflucan) 200 mg DAILY PO Last administered on 02/03/20 10:49; Start 01/24/20 at 11:00; Stop 02/04/20 at 16:17; Status DC Insulin Glargine (Lantus Syringe) 18 unit QHS SQ ; Start 01/24/20 at 21:00; Stop 01/24/20 at 20:59; Status DC Olanzapine (ZyPREXA) 10 mg QHS PO Last administered on 01/26/20at 21:14; Start 01/24/20 at 21:00; Stop 01/27/20 at 09:52; Status DC Enoxaparin Sodium (Lovenox 40mg Syringe) 40 mg Q24H SQ Last administered on 01/26/20 10:12; Start 01/24/20 at 11:00; Stop 01/26/20 at 12:24; Status DC Amino Acids/ Glycerin/ Electrolytes 1,000 ml @ 75 mls/hr [id number] IV Last administered on 01/29/20at 15:50; Start 01/24/20 at 13:45; Stop 01/30/20 at 10:00; Status DC Levetiracetam 500 mg/Dextrose 105 ml @ 420 mls/hr Q12HR IV Last administered on 01/26/20at 21:14; Start 01/24/20 at 13:45; Stop 01/27/20 at 08:47; Status DC Non-Formulary Medication 0.5 ea BID NG Last administered on 01/24/20at 21:12; Start 01/24/20 at 15:00; Stop 01/27/20 at 04:41; Status DC Lorazepam (Ativan Inj) 0.5 mg PRN Q4HRS PRN IVP ANXIETY / AGITATION Last administered on 02/05/20at 04:19; Start 01/24/20 at 16:45 Insulin Glargine (Lantus Syringe) 18 unit QHS SQ Last administered on 02/03/20at 20:15; Start 01/24/20 at 21:00; Stop 02/04/20 at 16:11; Status DC Dextrose (Dextrose 50%-Water Syringe) 12.5 gm PRN Q15MIN PRN IV SEE COMMENTS; Start 01/24/20 at 21:45; Stop 02/04/20 at 11:34; Status DC Enalaprilat (Vasotec Inj) 1.25 mg PRN Q6HRS PRN IVP HYPERTENSION, 1st choice Last administered on 02/05/20 04:17; Start 01/25/20 at 12:00 Prednisone (Prednisone) 5 mg DAILY PO Last administered on 02/03/20at 10:48; Start 01/27/20 at 09:00; Stop 02/05/20 at 09:29; Status DC Levetiracetam (Keppra) 500 mg BID PO Last administered on 02/03/20at 10:49; Start 01/27/20 at 09:00; Stop 02/04/20 at 16:15; Status DC Tacrolimus (Prograf Oral Susp) 0.5 mg STK-MED ONCE .ROUTE ; Start 01/24/20 at 21:00; Stop 01/27/20 at 14:30; Status DC Tacrolimus (Prograf Oral Susp) 0.5 mg STK-MED ONCE .ROUTE ; Start 01/24/20 at 21:00; Stop 01/27/20 at 14:30; Status DC Cefazolin Sodium (Ancef) 1 gm 1X ONCE IVP ; Start 01/31/20 at 12:00; Stop 01/31/20 at 12:01; Status DC Ringer's Solution 1,000 ml @ 50 mls/hr Q20H IV ; Start 01/31/20 at 07:00; Stop 01/31/20 at 18:59; Status DC Ringer's Solution 1,000 ml @ 75 mls/hr 1X ONCE IV ; Start 01/31/20 at 08:15; Stop 01/31/20 at 21:34; Status DC Hydralazine HCl (Apresoline Inj) 10 mg PRN Q4HRS PRN IVP ELEVATED BP, 3RD CHOICE Last administered on 01/31/20at 10:55; Start 01/31/20 at 09:45 Propofol (Diprivan) 200 mg STK-MED ONCE IV ; Start 01/31/20 at 13:08; Stop 01/31/20 at 13:09; Status DC Sodium Chloride 1,000 ml @ 100 mls/hr Q10H IV Last administered on 02/04/20at 23:40; Start 02/02/20 at 11:00 Info (Tpn Per Pharmacy) 1 each PRN DAILY PRN MC SEE COMMENTS Last administered on 02/04/20at 13:00; Start 02/03/20 at 10:00 Piperacillin Sod/ Tazobactam Sod 2.25 gm/Sodium Chloride 50 ml @ 100 mls/hr Q6HRS IV Last administered on 02/04/20at 05:57; Start 02/03/20 at 12:00; Stop 02/04/20 at 10:19; Status DC Insulin Human Lispro (HumaLOG) 10 units 1X ONCE SQ Last administered on 02/03/20at 11:10; Start 6/8/20 at 10:30; Stop 02/03/20 at 10:31; Status DC Calcium Gluconate (Calcium Gluconate) 1,000 mg 1X ONCE IVP Last administered on 02/03/20at 10:49; Start 02/03/20 at 10:30; Stop 02/03/20 at 10:31; Status DC Linezolid/Dextrose 300 ml @ 300 mls/hr Q12HR IV Last administered on 02/04/20at 09:41; Start 02/03/20 at 11:00; Stop 02/04/20 at 10:18; Status DC Dextrose (Dextrose 50%-Water Syringe) 25 gm 1X ONCE IV Last administered on 02/03/20at 10:49; Start 02/03/20 at 10:45; Stop 02/03/20 at 10:47; Status DC Lidocaine/ Epinephrine (LIDOCAINE 1%-EPI 1:100,000 Multi-Dose) 20 ml STK-MED ONCE .ROUTE ; Start 02/03/20 at 14:52; Stop 02/03/20 at 14:52; Status DC Sodium Chloride 90 meq/Magnesium Sulfate 5 meq/ Multivitamins 10 ml/Chromium/ Copper/Manganese/ Seleni/Zn 1 ml/ Insulin Human Regular 10 unit/ Total Parenteral Nutrition/Amino Acids/Dextrose/ Fat Emulsion Intravenous 1,512 ml @ 63 mls/hr TPN CONT IV Last administered on 02/03/20at 21:49; Start 02/03/20 at 22:00; Stop 02/04/20 at 21:59; Status DC Lidocaine/ Epinephrine (LIDOCAINE 1%-EPI 1:100,000 Multi-Dose) 20 ml 1X ONCE INJ Last administered on 02/03/20at 15:35; Start 02/03/20 at 15:15; Stop 02/03/20 at 15:16; Status DC Heparin Sodium (Porcine) (Hep Lock Adult) 500 unit STK-MED ONCE IVP ; Start 02/03/20 at 15:39; Stop 02/03/20 at 15:39; Status DC Heparin Sodium (Porcine) (Hep Lock Adult) 500 unit 1X ONCE IVP Last administered on 02/03/20at 15:45; Start 02/03/20 at 15:45; Stop 02/03/20 at 15:49; Status DC Insulin Human Lispro (HumaLOG) 15 units 1X ONCE SQ Last administered on 02/04/20at 08:40; Start 02/04/20 at 12:00; Stop 02/04/20 at 12:01; Status DC Insulin Human Lispro (HumaLOG) 0-9 UNITS TIDWMEALS SQ Last administered on 02/04/20at 14:44; Start 02/04/20 at 12:00; Stop 02/04/20 at 16:32; Status DC Dextrose (Dextrose 50%-Water Syringe) 12.5 gm PRN Q15MIN PRN IV SEE COMMENTS; Start 02/04/20 at 08:30 Clonidine HCl (Catapres Tts-1) 1 patch WEEKLY TD Last administered on 02/04/20at 11:36; Start 02/04/20 at 10:00 Heparin Sodium (Porcine) (Heparin Sodium) 5,000 unit Q12HR SQ Last administered on 02/04/20at 20:08; Start 02/04/20 at 10:15 Piperacillin Sod/ Tazobactam Sod 2.25 gm/Sodium Chloride 50 ml @ 100 mls/hr Q6HRS IV Last administered on 02/05/20at 05:24; Start 02/04/20 at 12:00 Sodium Chloride 20 meq/Sodium Acetate 70 meq/ Sodium Phosphate 13.6 mmol/ Magnesium Sulfate 5 meq/ Multivitamins 10 ml/Chromium/ Copper/Manganese/ Seleni/Zn 1 ml/ Insulin Human Regular 30 unit/ Total Parenteral Nutrition/Amino Acids/Dextrose/ Fat Emulsion Intravenous 1,512 ml @ 63 mls/hr TPN CONT IV Last administered on 02/04/20at 21:28; Start 02/04/20 at 22:00; Stop 02/05/20 at 21:59 Insulin Human Regular 100 unit/ Sodium Chloride 101 ml @ 0 mls/hr CONT PRN IV SEE I/O RECORD Last administered on 02/04/20at 21:30; Start 02/04/20 at 16:15 Levetiracetam 500 mg/Dextrose 105 ml @ 420 mls/hr Q12HR IV Last administered on 02/04/20at 20:03; Start 02/04/20 at 21:00 Fluconazole/ Sodium Chloride 100 ml @ 100 mls/hr Q24H IV Last administered on 02/04/20at 16:47; Start 02/04/20 at 17:00 Methylprednisolone Sodium Succinate (SOLU-Medrol 40MG VIAL) 40 mg Q12HR IV ; Start 02/05/20 at 09:30 Active Scripts Active Diflucan (Fluconazole) 100 Mg Tablet 200 Mg PO DAILY Reported Zyprexa (Olanzapine) 10 Mg Tablet 1 Tab PO QHS Trazodone Hcl 50 Mg Tablet 1 Tab PO QHS Seroquel (Quetiapine Fumarate) 25 Mg Tablet 25 Mg PO BID Humalog (Insulin Lispro) 100 Unit/1 Ml Vial 2 Unit SQ DAILYBFRLUN Lisinopril 20 Mg Tablet 1 Tab PO DAILY Acetaminophen 500 Mg Tablet 2 Tab PO PRN Q8HRS PRN 15 Days Prednisone 1 Mg Tablet 2 Mg PO DAILY Humalog (Insulin Lispro) 100 Unit/1 Ml Vial 8 Unit SQ DAILYBFRSUP Humalog (Insulin Lispro) 100 Unit/1 Ml Vial 4 Unit SQ DAILYWBKFT Hydralazine Hcl 25 Mg Tablet 1 Tab PO BID Aspir-Low (Aspirin) 81 Mg Tablet.dr 1 Tab PO DAILY Prograf (Tacrolimus) 1 Mg Capsule 0.5 Mg PO BID Levemir (Insulin Detemir) 100 Unit/1 Ml Vial 18 Unit SQ QHS Hold for FSBS below 90 and call Nephro-Stacey Tablet (Folic Acid/Vitamin B Comp W-C) 0.8 Mg Tablet 1 Tab PO DAILY Levetiracetam 500 Mg Tablet 500 Mg PO BID Vitals/I & O Vital Sign - Last 24 Hours 02/04/20 02/04/20 02/04/20 02/04/20 11:12 15:04 19:51 20:00 Temp 98.0 98.2 98.4 98.0 98.2 98.4 Pulse 88 100 94 Resp 20 B/P (MAP) 173/69 (103) 161/65 (97) 222/76 (124) Pulse Ox 82 95 99 O2 Delivery Room Air Room Air Room Air Room Air 02/04/20 02/04/20 02/04/20 02/05/20 20:01 23:37 23:44 03:58 Temp 98.0 98.3 98.0 98.3 Pulse 94 101 101 94 Resp 18 20 B/P (MAP) 222/76 198/69 (112) 198/69 194/93 (126) Pulse Ox 97 99 O2 Delivery Room Air Room Air 02/05/20 02/05/20 04:17 07:47 Temp 99.2 99.2 Pulse 94 86 Resp 22 B/P (MAP) 194/93 203/80 (121) Pulse Ox 99 O2 Delivery Room Air Intake and Output 02/04/20 02/04/20 02/05/20 15:00 23:00 07:00 Intake Total 350 ml 2309.9 ml 950 ml Output Total 500 ml Balance -150 ml 2309.9 ml 950 ml Nutrition Consultation Dietary Evaluation: Recommendations by RD: Dietary education by RD, PPN/TPN Comments: NPO per [employer] REC TPN: 195 g dextrose, 60 g AA, 20 g lipid at this time as G tube placement is on hold. Expected Outcomes/Goals: New goal 02/02: to meet >60-65% est nutr needs via TPN - goal ongoing Malnutrition Findings: Body Fat Depletion (Non Severe: Mild Depletion Weight Status: Appropriate MADI CHAVEZ MD Feb 05, 2020 09:47
[2020-02-05] MEDS: methylPREDNISolone SOD SUCC PF 40 MG/ML VIAL. IV SCH ×2 (09:54→23:23)
[2020-02-05] MEDS: levETIRAcetam 500 MG in IV DEXTROSE 5% 100ML 100 ML IV SCH ×2 (09:56→23:51)
--- NOTE | 2020-02-05 10:09 | PDOC ---
PROGRESS NOTES Assessment Problems Medical Problems: (1) Cough Status: Acute (2) Left-sided weakness Status: Acute Patient is worse, I think she is in a terminal decline Metabolic encephalopathy No acute stroke. Dementia and multiple psychiatric diagnoses. 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 Diabetic peripheral neuropathy Ruled out COVID Poor oral intake, PEG unsuccessful, awaiting G-tube Note LP done, negative, elevated protein in isolation is nonspecific, may be seen, for instance, in diabetes Medical issues: status-post renal transplant, chronic allograft nephropathy, CKD stage 3, istory of disseminated Cryptococcus, coronary artery disease, anemia, lung nodules Plan CT head (done, negative) Discussed with daughter, she will think about making patient do not resuscitate Levetiracetam Return to long term or LTAC when medically stable Will also consider EEG Subjective None Objective Vital Signs Date Time Temp Pulse Resp B/P (MAP) Pulse Ox O2 Delivery O2 Flow Rate FiO2 02/05/20 07:47 99.2 86 22 203/80 (121) 99 Room Air 99.2 Intake and Output 02/05/20 06:59 Intake Total 3609.9 ml Output Total 500 ml Balance 3109.9 ml Intake Oral 0 ml IV Total 3609.9 ml Output Urine Total 500 ml # Voids 8 PHYSICAL EXAM More lethargic, does not speak or follow commands PERRL. EOMI. CN: no focal findings. Muscle tone: normal. Muscle strength: 3/5 DTR: 1+ Plantar reflex: flexor Gait: not examined in bed. Sensory exam: stocking loss. Cerebellar: Not cooperative Review of Relevant I have reviewed the following items warner (where applicable) has been applied. Labs Laboratory Tests Test 02/03/20 12:46 02/03/20 15:12 02/03/20 16:48 02/03/20 19:41 Glucose (Fingerstick) 347 mg/dL (70-99) 328 mg/dL (70-99) 304 mg/dL (70-99) 327 mg/dL (70-99) Test 02/04/20 03:25 02/04/20 07:27 02/04/20 09:15 02/04/20 11:40 White Blood Count 14.0 x10^3/uL (4.0-11.0) Red Blood Count 4.61 x10^6/uL (3.50-5.40) Hemoglobin 11.8 g/dL (12.0-15.5) Hematocrit 37.9 % (36.0-47.0) Mean Corpuscular Volume 82 fL (79-100) Mean Corpuscular Hemoglobin 26 pg (25-35) Mean Corpuscular Hemoglobin Concent 31 g/dL (31-37) Red Cell Distribution Width 16.3 % (11.5-14.5) Platelet Count 248 x10^3/uL (140-400) Neutrophils (%) (Auto) 88 % (31-73) Lymphocytes (%) (Auto) 4 % (24-48) Monocytes (%) (Auto) 8 % (0-9) Eosinophils (%) (Auto) 0 % (0-3) Basophils (%) (Auto) 0 % (0-3) Neutrophils # (Auto) 12.3 x10^3/uL (1.8-7.7) Lymphocytes # (Auto) 0.5 x10^3/uL (1.0-4.8) Monocytes # (Auto) 1.2 x10^3/uL (0.0-1.1) Eosinophils # (Auto) 0.0 x10^3/uL (0.0-0.7) Basophils # (Auto) 0.0 x10^3/uL (0.0-0.2) Sodium Level 140 mmol/L (136-145) Potassium Level 5.4 mmol/L (3.5-5.1) Chloride Level 109 mmol/L (98-107) Carbon Dioxide Level 18 mmol/L (21-32) Anion Gap 13 (6-14) Blood Urea Nitrogen 70 mg/dL (7-20) Creatinine 1.8 mg/dL (0.6-1.0) Estimated GFR (Cockcroft-Gault) 34.1 BUN/Creatinine Ratio 39 (6-20) Glucose Level 483 mg/dL (70-99) Calcium Level 10.0 mg/dL (8.5-10.1) Phosphorus Level 2.4 mg/dL (2.6-4.7) Magnesium Level 2.2 mg/dL (1.8-2.4) Total Bilirubin 0.2 mg/dL (0.2-1.0) Aspartate Amino Transf (AST/SGOT) 21 U/L (15-37) Alanine Aminotransferase (ALT/SGPT) 26 U/L (14-59) Alkaline Phosphatase 93 U/L (46-116) Total Protein 6.3 g/dL (6.4-8.2) Albumin 2.3 g/dL (3.4-5.0) Albumin/Globulin Ratio 0.6 (1.0-1.7) Triglycerides Level 112 mg/dL (0-150) Glucose (Fingerstick) 526 mg/dL (70-99) 514 mg/dL (70-99) 456 mg/dL (70-99) Test 02/04/20 12:15 02/04/20 16:02 02/04/20 17:38 02/04/20 18:42 Urine Collection Type Unknown Urine Color Yellow Urine Clarity Cloudy Urine pH 5.5 (<5.0-8.0) Urine Specific [place] 1.020 (1.000-1.030) Urine Protein >=300 mg/dL (NEG-TRACE) Urine Glucose (UA) >=1000 mg/dL (NEG) Urine Ketones (Stick) Negative mg/dL (NEG) Urine Blood Negative (NEG) Urine Nitrite Positive (NEG) Urine Bilirubin Negative (NEG) Urine Urobilinogen Dipstick 0.2 mg/dL (0.2 mg/dL) Urine Leukocyte Esterase Moderate (NEG) Urine RBC 0 /HPF (0-2) Urine WBC Tntc /HPF (0-4) Urine Squamous Epithelial Cells Occ /LPF Urine Bacteria Many /HPF (0-FEW) Glucose (Fingerstick) 505 mg/dL (70-99) 468 mg/dL (70-99) 469 mg/dL (70-99) Test 02/04/20 19:30 02/04/20 20:34 02/04/20 21:05 02/04/20 21:50 Glucose (Fingerstick) 348 mg/dL (70-99) 338 mg/dL (70-99) 299 mg/dL (70-99) Lactic Acid Level 2.0 mmol/L (0.4-2.0) Test 02/04/20 22:45 02/05/20 00:00 02/05/20 01:00 02/05/20 02:05 Glucose (Fingerstick) 218 mg/dL (70-99) 212 mg/dL (70-99) 173 mg/dL (70-99) 141 mg/dL (70-99) Test 02/05/20 03:00 02/05/20 03:11 02/05/20 04:05 02/05/20 05:26 White Blood Count 12.7 x10^3/uL (4.0-11.0) Red Blood Count 4.68 x10^6/uL (3.50-5.40) Hemoglobin 11.9 g/dL (12.0-15.5) Hematocrit 37.5 % (36.0-47.0) Mean Corpuscular Volume 80 fL (79-100) Mean Corpuscular Hemoglobin 25 pg (25-35) Mean Corpuscular Hemoglobin Concent 32 g/dL (31-37) Red Cell Distribution Width 16.4 % (11.5-14.5) Platelet Count 293 x10^3/uL (140-400) Neutrophils (%) (Auto) 83 % (31-73) Lymphocytes (%) (Auto) 5 % (24-48) Monocytes (%) (Auto) 12 % (0-9) Eosinophils (%) (Auto) 0 % (0-3) Basophils (%) (Auto) 0 % (0-3) Neutrophils # (Auto) 10.5 x10^3/uL (1.8-7.7) Lymphocytes # (Auto) 0.6 x10^3/uL (1.0-4.8) Monocytes # (Auto) 1.5 x10^3/uL (0.0-1.1) Eosinophils # (Auto) 0.0 x10^3/uL (0.0-0.7) Basophils # (Auto) 0.0 x10^3/uL (0.0-0.2) Sodium Level 147 mmol/L (136-145) Potassium Level 3.1 mmol/L (3.5-5.1) Chloride Level 113 mmol/L (98-107) Carbon Dioxide Level 21 mmol/L (21-32) Anion Gap 13 (6-14) Blood Urea Nitrogen 46 mg/dL (7-20) Creatinine 1.5 mg/dL (0.6-1.0) Estimated GFR (Cockcroft-Gault) 42.0 Glucose Level 149 mg/dL (70-99) Calcium Level 10.8 mg/dL (8.5-10.1) Phosphorus Level 1.3 mg/dL (2.6-4.7) Magnesium Level 1.7 mg/dL (1.8-2.4) Glucose (Fingerstick) 127 mg/dL (70-99) 119 mg/dL (70-99) 112 mg/dL (70-99) Test 02/05/20 06:32 02/05/20 07:39 02/05/20 08:45 02/05/20 09:43 Glucose (Fingerstick) 114 mg/dL (70-99) 122 mg/dL (70-99) 130 mg/dL (70-99) 132 mg/dL (70-99) Laboratory Tests Test 02/04/20 11:40 02/04/20 12:15 02/04/20 16:02 02/04/20 17:38 Glucose (Fingerstick) 456 mg/dL (70-99) 505 mg/dL (70-99) 468 mg/dL (70-99) Urine Collection Type Unknown Urine Color Yellow Urine Clarity Cloudy Urine pH 5.5 (<5.0-8.0) Urine Specific [place] 1.020 (1.000-1.030) Urine Protein >=300 mg/dL (NEG-TRACE) Urine Glucose (UA) >=1000 mg/dL (NEG) Urine Ketones (Stick) Negative mg/dL (NEG) Urine Blood Negative (NEG) Urine Nitrite Positive (NEG) Urine Bilirubin Negative (NEG) Urine Urobilinogen Dipstick 0.2 mg/dL (0.2 mg/dL) Urine Leukocyte Esterase Moderate (NEG) Urine RBC 0 /HPF (0-2) Urine WBC Tntc /HPF (0-4) Urine Squamous Epithelial Cells Occ /LPF Urine Bacteria Many /HPF (0-FEW) Test 02/04/20 18:42 02/04/20 19:30 02/04/20 20:34 02/04/20 21:05 Glucose (Fingerstick) 469 mg/dL (70-99) 348 mg/dL (70-99) 338 mg/dL (70-99) Lactic Acid Level 2.0 mmol/L (0.4-2.0) Test 02/04/20 21:50 02/04/20 22:45 02/05/20 00:00 02/05/20 01:00 Glucose (Fingerstick) 299 mg/dL (70-99) 218 mg/dL (70-99) 212 mg/dL (70-99) 173 mg/dL (70-99) Test 02/05/20 02:05 02/05/20 03:00 02/05/20 03:11 02/05/20 04:05 Glucose (Fingerstick) 141 mg/dL (70-99) 127 mg/dL (70-99) 119 mg/dL (70-99) White Blood Count 12.7 x10^3/uL (4.0-11.0) Red Blood Count 4.68 x10^6/uL (3.50-5.40) Hemoglobin 11.9 g/dL (12.0-15.5) Hematocrit 37.5 % (36.0-47.0) Mean Corpuscular Volume 80 fL (79-100) Mean Corpuscular Hemoglobin 25 pg (25-35) Mean Corpuscular Hemoglobin Concent 32 g/dL (31-37) Red Cell Distribution Width 16.4 % (11.5-14.5) Platelet Count 293 x10^3/uL (140-400) Neutrophils (%) (Auto) 83 % (31-73) Lymphocytes (%) (Auto) 5 % (24-48) Monocytes (%) (Auto) 12 % (0-9) Eosinophils (%) (Auto) 0 % (0-3) Basophils (%) (Auto) 0 % (0-3) Neutrophils # (Auto) 10.5 x10^3/uL (1.8-7.7) Lymphocytes # (Auto) 0.6 x10^3/uL (1.0-4.8) Monocytes # (Auto) 1.5 x10^3/uL (0.0-1.1) Eosinophils # (Auto) 0.0 x10^3/uL (0.0-0.7) Basophils # (Auto) 0.0 x10^3/uL (0.0-0.2) Sodium Level 147 mmol/L (136-145) Potassium Level 3.1 mmol/L (3.5-5.1) Chloride Level 113 mmol/L (98-107) Carbon Dioxide Level 21 mmol/L (21-32) Anion Gap 13 (6-14) Blood Urea Nitrogen 46 mg/dL (7-20) Creatinine 1.5 mg/dL (0.6-1.0) Estimated GFR (Cockcroft-Gault) 42.0 Glucose Level 149 mg/dL (70-99) Calcium Level 10.8 mg/dL (8.5-10.1) Phosphorus Level 1.3 mg/dL (2.6-4.7) Magnesium Level 1.7 mg/dL (1.8-2.4) Test 02/05/20 05:26 02/05/20 06:32 02/05/20 07:39 02/05/20 08:45 Glucose (Fingerstick) 112 mg/dL (70-99) 114 mg/dL (70-99) 122 mg/dL (70-99) 130 mg/dL (70-99) Test 02/05/20 09:43 Glucose (Fingerstick) 132 mg/dL (70-99) Microbiology 02/04/20 Urine Culture - Preliminary, Resulted 02/03/20 Blood Culture - Final, Complete Medications Current Medications Clonidine HCl (Catapres) 0.2 mg 1X ONCE PO Last administered on 01/23/20at 17:38; Start 01/23/20 at 17:30; Stop 01/23/20 at 17:31; Status DC Ondansetron HCl (Zofran) 4 mg PRN Q8HRS PRN IV NAUSEA/VOMITING; Start 01/23/20 at 17:45; Stop 01/24/20 at 17:44; Status DC Morphine Sulfate (Morphine Sulfate) 2 mg PRN Q2HR PRN IV PAIN; Start 01/23/20 at 17:45; Stop 01/24/20 at 17:44; Status DC Dextrose/Sodium Chloride 1,000 ml @ 100 mls/hr 1X ONCE IV Last administered on 01/23/20at 19:24; Start 01/23/20 at 17:45; Stop 01/24/20 at 03:44; Status DC Pharmacy Consult (C.diff Med Screen By Rx) 1 each 1X ONCE MC Last administered on 01/24/20at 08:26; Start 01/24/20 at 09:00; Stop 01/24/20 at 09:01; Status DC Labetalol HCl (Normodyne Iv Push) 20 mg PRN Q4HRS PRN IVP HYPERTENSION, 2nd choice Last administered on 02/04/20at 23:44; Start 01/24/20 at 04:15 Clonidine HCl (Catapres Tts-3) 1 patch WEEKLY TD ; Start 01/24/20 at 09:00; Stop 01/24/20 at 05:21; Status DC Piperacillin Sod/ Tazobactam Sod (Zosyn Per Pharmacy) 1 each PRN DAILY PRN MC SEE COMMENTS; Start 01/24/20 at 04:30; Stop 01/24/20 at 09:32; Status DC Piperacillin Sod/ Tazobactam Sod 3.375 gm/Sodium Chloride 50 ml @ 100 mls/hr Q6H IV Last administered on 01/24/20at 05:06; Start 01/24/20 at 05:00; Stop 01/24/20 at 09:30; Status DC Clonidine HCl (Catapres Tts-3) 1 patch WEEKLY TD Last administered on 01/31/20at 08:22; Start 01/24/20 at 16:00; Stop 02/04/20 at 09:59; Status DC Clonidine HCl (Catapres Tts-3) 1 patch 1X ONCE TD ; Start 01/24/20 at 05:30; Stop 01/24/20 at 05:31; Status DC Levetiracetam (Keppra) 500 mg BID PO ; Start 01/24/20 at 09:00; Status Cancel Acetaminophen (Tylenol) 650 mg PRN Q6HRS PRN PO TEMP > 100.4F; Start 01/24/20 at 08:30; Stop 01/26/20 at 12:00; Status DC Acetaminophen (Tylenol Supp) 650 mg PRN Q4HRS PRN SD TEMP > 100.4F Last administered on 02/04/20at 09:45; Start 01/24/20 at 08:30 Aspirin (Ecotrin) 325 mg DAILYWBKFT PO Last administered on 02/03/20at 10:49; Start 01/25/20 at 08:00 Aspirin (Aspirin Rectal Supp) 300 mg PRN DAILY PRN SD IF UNABLE TO TAKE PO Last administered on 02/04/20at 09:56; Start 01/24/20 at 08:30 Lorazepam (Ativan Inj) 2 mg PRN Q4HRS PRN IVP ANXIETY / AGITATION Last admin istered on 01/24/20at 10:14; Start 01/24/20 at 10:00; Stop 01/24/20 at 16:35; Status DC Acetaminophen (Tylenol) 1,000 mg PRN Q8HRS PRN PO MILD PAIN OR FEVER; Start 01/24/20 at 10:15 Aspirin (Ecotrin) 81 mg DAILY PO ; Start 01/25/20 at 09:00; Status UNV Vitamin B Complex/ Vitamin C (Vicki-Stacey) 1 tab DAILY PO Last administered on 02/03/20at 10:48; Start 01/25/20 at 09:00 Hydralazine HCl (Apresoline) 25 mg BID PO Last administered on 02/03/20at 10:49; Start 01/24/20 at 21:00 Insulin Human Lispro (HumaLOG) 2 units DAILYWLUN SQ Last administered on 02/04/20at 14:43; Start 01/24/20 at 12:00; Stop 02/04/20 at 16:11; Status DC Insulin Human Lispro (HumaLOG) 4 units DAILYWBKFT SQ Last administered on 02/02/20at 09:18; Start 01/25/20 at 08:00; Stop 02/04/20 at 16:11; Status DC Insulin Human Lispro (HumaLOG) 8 units DAILYWSUP SQ Last administered on 02/03/20at 18:17; Start 01/24/20 at 17:00; Stop 02/04/20 at 16:11; Status DC Lisinopril (Prinivil) 20 mg DAILY PO Last administered on 02/01/20at 10:37; Start 01/24/20 at 12:00; Stop 02/02/20 at 11:51; Status DC Prednisone (Prednisone) 2 mg DAILY PO Last administered on 01/26/20at 10:15; Start 01/24/20 at 12:00; Stop 01/26/20 at 12:24; Status DC Quetiapine Fumarate (SEROquel) 25 mg BID PO Last administered on 01/26/20at 21:14; Start 01/24/20 at 12:00; Stop 01/27/20 at 09:52; Status DC Tacrolimus (Prograf) 0.5 mg BID PO Last administered on 02/03/20at 10:49; Start 01/24/20 at 12:00 Trazodone HCl (Desyrel) 50 mg QHS PO Last administered on 01/26/20 21:14; Start 01/24/20 at 21:00; Stop 01/27/20 at 09:52; Status DC Fluconazole (Diflucan) 200 mg DAILY PO Last administered on 02/03/20 10:49; Start 01/24/20 at 11:00; Stop 02/04/20 at 16:17; Status DC Insulin Glargine (Lantus Syringe) 18 unit QHS SQ ; Start 01/24/20 at 21:00; Stop 01/24/20 at 20:59; Status DC Olanzapine (ZyPREXA) 10 mg QHS PO Last administered on 01/26/20 21:14; Start 01/24/20 at 21:00; Stop 01/27/20 at 09:52; Status DC Enoxaparin Sodium (Lovenox 40mg Syringe) 40 mg Q24H SQ Last administered on 01/26/20at 10:12; Start 01/24/20 at 11:00; Stop 01/26/20 at 12:24; Status DC Amino Acids/ Glycerin/ Electrolytes 1,000 ml @ 75 mls/hr [id number] IV Last administered on 01/29/20at 15:50; Start 01/24/20 at 13:45; Stop 01/30/20 at 10:00; Status DC Levetiracetam 500 mg/Dextrose 105 ml @ 420 mls/hr Q12HR IV Last administered on 01/26/20 21:14; Start 01/24/20 at 13:45; Stop 01/27/20 at 08:47; Status DC Non-Formulary Medication 0.5 ea BID NG Last administered on 01/24/20 21:12; Start 01/24/20 at 15:00; Stop 01/27/20 at 04:41; Status DC Lorazepam (Ativan Inj) 0.5 mg PRN Q4HRS PRN IVP ANXIETY / AGITATION Last administered on 02/05/20 04:19; Start 01/24/20 at 16:45 Insulin Glargine (Lantus Syringe) 18 unit QHS SQ Last administered on 6/8/20at 20:15; Start 01/24/20 at 21:00; Stop 02/04/20 at 16:11; Status DC Dextrose (Dextrose 50%-Water Syringe) 12.5 gm PRN Q15MIN PRN IV SEE COMMENTS; Start 01/24/20 at 21:45; Stop 02/04/20 at 11:34; Status DC Enalaprilat (Vasotec Inj) 1.25 mg PRN Q6HRS PRN IVP HYPERTENSION, 1st choice Last administered on 02/05/20at 04:17; Start 01/25/20 at 12:00 Prednisone (Prednisone) 5 mg DAILY PO Last administered on 02/03/20at 10:48; Start 01/27/20 at 09:00; Stop 02/05/20 at 09:29; Status DC Levetiracetam (Keppra) 500 mg BID PO Last administered on 02/03/20at 10:49; Start 01/27/20 at 09:00; Stop 02/04/20 at 16:15; Status DC Tacrolimus (Prograf Oral Susp) 0.5 mg STK-MED ONCE .ROUTE ; Start 01/24/20 at 21:00; Stop 01/27/20 at 14:30; Status DC Tacrolimus (Prograf Oral Susp) 0.5 mg STK-MED ONCE .ROUTE ; Start 01/24/20 at 21:00; Stop 01/27/20 at 14:30; Status DC Cefazolin Sodium (Ancef) 1 gm 1X ONCE IVP ; Start 01/31/20 at 12:00; Stop 01/31/20 at 12:01; Status DC Ringer's Solution 1,000 ml @ 50 mls/hr Q20H IV ; Start 01/31/20 at 07:00; Stop 01/31/20 at 18:59; Status DC Ringer's Solution 1,000 ml @ 75 mls/hr 1X ONCE IV ; Start 01/31/20 at 08:15; Stop 01/31/20 at 21:34; Status DC Hydralazine HCl (Apresoline Inj) 10 mg PRN Q4HRS PRN IVP ELEVATED BP, 3RD CHOICE Last administered on 01/31/20at 10:55; Start 01/31/20 at 09:45 Propofol (Diprivan) 200 mg STK-MED ONCE IV ; Start 01/31/20 at 13:08; Stop 01/31/20 at 13:09; Status DC Sodium Chloride 1,000 ml @ 100 mls/hr Q10H IV Last administered on 02/04/20at 23:40; Start 02/02/20 at 11:00 Info (Tpn Per Pharmacy) 1 each PRN DAILY PRN MC SEE COMMENTS Last administered on 02/04/20at 13:00; Start 02/03/20 at 10:00 Piperacillin Sod/ Tazobactam Sod 2.25 gm/Sodium Chloride 50 ml @ 100 mls/hr Q6HRS IV Last administered on 02/04/20at 05:57; Start 02/03/20 at 12:00; Stop 02/04/20 at 10:19; Status DC Insulin Human Lispro (HumaLOG) 10 units 1X ONCE SQ Last administered on 02/03/20at 11:10; Start 02/03/20 at 10:30; Stop 02/03/20 at 10:31; Status DC Calcium Gluconate (Calcium Gluconate) 1,000 mg 1X ONCE IVP Last administered on 02/03/20at 10:49; Start 02/03/20 at 10:30; Stop 02/03/20 at 10:31; Status DC Linezolid/Dextrose 300 ml @ 300 mls/hr Q12HR IV Last administered on 02/04/20at 09:41; Start 02/03/20 at 11:00; Stop 02/04/20 at 10:18; Status DC Dextrose (Dextrose 50%-Water Syringe) 25 gm 1X ONCE IV Last administered on 02/03/20at 10:49; Start 02/03/20 at 10:45; Stop 02/03/20 at 10:47; Status DC Lidocaine/ Epinephrine (LIDOCAINE 1%-EPI 1:100,000 Multi-Dose) 20 ml STK-MED ONCE .ROUTE ; Start 02/03/20 at 14:52; Stop 02/03/20 at 14:52; Status DC Sodium Chloride 90 meq/Magnesium Sulfate 5 meq/ Multivitamins 10 ml/Chromium/ Copper/Manganese/ Seleni/Zn 1 ml/ Insulin Human Regular 10 unit/ Total Parenteral Nutrition/Amino Acids/Dextrose/ Fat Emulsion Intravenous 1,512 ml @ 63 mls/hr TPN CONT IV Last administered on 02/03/20at 21:49; Start 02/03/20 at 22:00; Stop 02/04/20 at 21:59; Status DC Lidocaine/ Epinephrine (LIDOCAINE 1%-EPI 1:100,000 Multi-Dose) 20 ml 1X ONCE INJ Last administered on 02/03/20at 15:35; Start 02/03/20 at 15:15; Stop 02/03/20 at 15:16; Status DC Heparin Sodium (Porcine) (Hep Lock Adult) 500 unit STK-MED ONCE IVP ; Start 02/03/20 at 15:39; Stop 02/03/20 at 15:39; Status DC Heparin Sodium (Porcine) (Hep Lock Adult) 500 unit 1X ONCE IVP Last administered on 02/03/20at 15:45; Start 02/03/20 at 15:45; Stop 02/03/20 at 15:49; Status DC Insulin Human Lispro (HumaLOG) 15 units 1X ONCE SQ Last administered on 02/04/20at 08:40; Start 02/04/20 at 12:00; Stop 02/04/20 at 12:01; Status DC Insulin Human Lispro (HumaLOG) 0-9 UNITS TIDWMEALS SQ Last administered on 02/04/20at 14:44; Start 02/04/20 at 12:00; Stop 02/04/20 at 16:32; Status DC Dextrose (Dextrose 50%-Water Syringe) 12.5 gm PRN Q15MIN PRN IV SEE COMMENTS; Start 02/04/20 at 08:30 Clonidine HCl (Catapres Tts-1) 1 patch WEEKLY TD Last administered on 02/04/20at 11:36; Start 02/04/20 at 10:00 Heparin Sodium (Porcine) (Heparin Sodium) 5,000 unit Q12HR SQ Last administered on 02/04/20at 20:08; Start 02/04/20 at 10:15 Piperacillin Sod/ Tazobactam Sod 2.25 gm/Sodium Chloride 50 ml @ 100 mls/hr Q6HRS IV Last administered on 02/05/20at 05:24; Start 02/04/20 at 12:00 Sodium Chloride 20 meq/Sodium Acetate 70 meq/ Sodium Phosphate 13.6 mmol/ Magnesium Sulfate 5 meq/ Multivitamins 10 ml/Chromium/ Copper/Manganese/ Seleni/Zn 1 ml/ Insulin Human Regular 30 unit/ Total Parenteral Nutrition/Amino Acids/Dextrose/ Fat Emulsion Intravenous 1,512 ml @ 63 mls/hr TPN CONT IV Last administered on 02/04/20at 21:28; Start 02/04/20 at 22:00; Stop 02/05/20 at 21:59 Insulin Human Regular 100 unit/ Sodium Chloride 101 ml @ 0 mls/hr CONT PRN IV SEE I/O RECORD Last administered on 02/04/20at 21:30; Start 02/04/20 at 16:15 Levetiracetam 500 mg/Dextrose 105 ml @ 420 mls/hr Q12HR IV Last administered on 02/04/20at 20:03; Start 02/04/20 at 21:00 Fluconazole/ Sodium Chloride 100 ml @ 100 mls/hr Q24H IV Last administered on 02/04/20at 16:47; Start 02/04/20 at 17:00 Methylprednisolone Sodium Succinate (SOLU-Medrol 40MG VIAL) 40 mg Q12HR IV ; Start 02/05/20 at 09:30 Active Scripts Active Diflucan (Fluconazole) 100 Mg Tablet 200 Mg PO DAILY Reported Zyprexa (Olanzapine) 10 Mg Tablet 1 Tab PO QHS Trazodone Hcl 50 Mg Tablet 1 Tab PO QHS Seroquel (Quetiapine Fumarate) 25 Mg Tablet 25 Mg PO BID Humalog (Insulin Lispro) 100 Unit/1 Ml Vial 2 Unit SQ DAILYBFRLUN Lisinopril 20 Mg Tablet 1 Tab PO DAILY Acetaminophen 500 Mg Tablet 2 Tab PO PRN Q8HRS PRN 15 Days Prednisone 1 Mg Tablet 2 Mg PO DAILY Humalog (Insulin Lispro) 100 Unit/1 Ml Vial 8 Unit SQ DAILYBFRSUP Humalog (Insulin Lispro) 100 Unit/1 Ml Vial 4 Unit SQ DAILYWBKFT Hydralazine Hcl 25 Mg Tablet 1 Tab PO BID Aspir-Low (Aspirin) 81 Mg Tablet. 1 Tab PO DAILY Prograf (Tacrolimus) 1 Mg Capsule 0.5 Mg PO BID Levemir (Insulin Detemir) 100 Unit/1 Ml Vial 18 Unit SQ QHS Hold for FSBS below 90 and call Nephro-Stacey Tablet (Folic Acid/Vitamin B Comp W-C) 0.8 Mg Tablet 1 Tab PO DAILY Levetiracetam 500 Mg Tablet 500 Mg PO BID Vitals/I & O Vital Sign - Last 24 Hours 02/04/20 02/04/20 02/04/20 02/04/20 11:12 15:04 19:51 20:00 Temp 98.0 98.2 98.4 98.0 98.2 98.4 Pulse 88 100 94 Resp 18 22 20 B/P (MAP) 173/69 (103) 161/65 (97) 222/76 (124) Pulse Ox 82 95 99 O2 Delivery Room Air Room Air Room Air Room Air 02/04/20 02/04/20 02/04/20 02/05/20 20:01 23:37 23:44 03:58 Temp 98.0 98.3 98.0 98.3 Pulse 94 101 101 94 Resp 18 20 B/P (MAP) 222/76 198/69 (112) 198/69 194/93 (126) Pulse Ox 97 99 O2 Delivery Room Air Room Air 02/05/20 02/05/20 04:17 07:47 Temp 99.2 99.2 Pulse 94 86 Resp 22 B/P (MAP) 194/93 203/80 (121) Pulse Ox 99 O2 Delivery Room Air Intake and Output 02/04/20 02/04/20 02/05/20 14:59 22:59 06:59 Intake Total 350 ml 2309.9 ml 950 ml Output Total 500 ml Balance -150 ml 2309.[address] ml [address] HEAD WO CONTRAST History:Altered mental status Comparison: March 30, 2019 Technique: Noncontrast CT imaging was performed of the head. Exposure: One or more of the following individualized dose reduction techniques were utilized for this examination: 1. Automated exposure control 2. Adjustment of the mA and/or kV according to patient size 3. Use of iterative reconstruction technique. Findings: There is again encephalomalacia with cortical involvement centered in the right parietal lobe extending to the right occipital lobe. There is other ill-defined low-density of the supratentorial parenchyma bilaterally. There are old lacunar infarcts of the right basal ganglia and thalamus and also left basal ganglia as seen previously. No acute hyperdense intracranial hemorrhage is identified. There is no new midline shift. Ventricular size is stable. There is mild lateral ventriculomegaly likely due to component of supratentorial involutional change. There is atherosclerotic calcification of the bilateral carotid siphons and intradural vertebral arteries. Visualized paranasal sinuses are mostly aerated other than very minimal focal mucosal thickening or mucous retention cyst of the left ethmoid air cell and also probable small right maxillary sinus mucous retention cyst. Mastoid air cells are aerated. Impression: 1. No acute intracranial hemorrhage is identified. There is again old infarct with cortical involvement of centered in the right parietal lobe extending to the right occipital lobe. There is other ill-defined low-density of the supratentorial parenchyma, nonspecific findings which may be due to chronic microvascular ischemic disease. There are also old lacunar infarcts as stated. If there is suspicion for evolving or acute ischemia, follow-up CT or MRI could be beneficial. Justicifation of Admission Dx: Justifications for Admission: Justification of Admission Dx: Yes Comminuty Aquired Pneumonia: Immunocomprimised Pt Sepsis: Altered Mental Status Altered Mental Status: Altered Mental Status ISELA WASHINGTON MD Feb 05, 2020 10:09
--- NOTE | 2020-02-05 11:33 | PDOC ---
Renal-Progress Notes Subjective Notes Notes CONFUSED History of Present Illness Hx of present illness NOT ANY BETTER, MOVING TO ICU Vitals Vitals Vital Signs Date Time Temp Pulse Resp B/P (MAP) Pulse Ox O2 Delivery O2 Flow Rate FiO2 02/05/20 11:13 99.6 93 20 96/45 (62) 95 Room Air 99.6 Weight Weight [ ] I.O. Intake and Output Intake and Output 02/05/20 07:00 Intake Total 3609.9 ml Output Total 500 ml Balance 3109.9 ml Intake Oral 0 ml IV Total 3609.9 ml Output Urine Total 500 ml # Voids 8 Labs Labs Laboratory Tests Test 02/04/20 11:40 02/04/20 12:15 02/04/20 16:02 02/04/20 17:38 Glucose (Fingerstick) 456 mg/dL (70-99) 505 mg/dL (70-99) 468 mg/dL (70-99) Urine Collection Type Unknown Urine Color Yellow Urine Clarity Cloudy Urine pH 5.5 (<5.0-8.0) Urine Specific [place] 1.020 (1.000-1.030) Urine Protein >=300 mg/dL (NEG-TRACE) Urine Glucose (UA) >=1000 mg/dL (NEG) Urine Ketones (Stick) Negative mg/dL (NEG) Urine Blood Negative (NEG) Urine Nitrite Positive (NEG) Urine Bilirubin Negative (NEG) Urine Urobilinogen Dipstick 0.2 mg/dL (0.2 mg/dL) Urine Leukocyte Esterase Moderate (NEG) Urine RBC 0 /HPF (0-2) Urine WBC Tntc /HPF (0-4) Urine Squamous Epithelial Cells Occ /LPF Urine Bacteria Many /HPF (0-FEW) Test 02/04/20 18:42 02/04/20 19:30 02/04/20 20:34 02/04/20 21:05 Glucose (Fingerstick) 469 mg/dL (70-99) 348 mg/dL (70-99) 338 mg/dL (70-99) Lactic Acid Level 2.0 mmol/L (0.4-2.0) Test 02/04/20 21:50 02/04/20 22:45 02/05/20 00:00 02/05/20 01:00 Glucose (Fingerstick) 299 mg/dL (70-99) 218 mg/dL (70-99) 212 mg/dL (70-99) 173 mg/dL (70-99) Test 02/05/20 02:05 02/05/20 03:00 02/05/20 03:11 02/05/20 04:05 Glucose (Fingerstick) 141 mg/dL (70-99) 127 mg/dL (70-99) 119 mg/dL (70-99) White Blood Count 12.7 x10^3/uL (4.0-11.0) Red Blood Count 4.68 x10^6/uL (3.50-5.40) Hemoglobin 11.9 g/dL (12.0-15.5) Hematocrit 37.5 % (36.0-47.0) Mean Corpuscular Volume 80 fL (79-100) Mean Corpuscular Hemoglobin 25 pg (25-35) Mean Corpuscular Hemoglobin Concent 32 g/dL (31-37) Red Cell Distribution Width 16.4 % (11.5-14.5) Platelet Count 293 x10^3/uL (140-400) Neutrophils (%) (Auto) 83 % (31-73) Lymphocytes (%) (Auto) 5 % (24-48) Monocytes (%) (Auto) 12 % (0-9) Eosinophils (%) (Auto) 0 % (0-3) Basophils (%) (Auto) 0 % (0-3) Neutrophils # (Auto) 10.5 x10^3/uL (1.8-7.7) Lymphocytes # (Auto) 0.6 x10^3/uL (1.0-4.8) Monocytes # (Auto) 1.5 x10^3/uL (0.0-1.1) Eosinophils # (Auto) 0.0 x10^3/uL (0.0-0.7) Basophils # (Auto) 0.0 x10^3/uL (0.0-0.2) Sodium Level 147 mmol/L (136-145) Potassium Level 3.1 mmol/L (3.5-5.1) Chloride Level 113 mmol/L (98-107) Carbon Dioxide Level 21 mmol/L (21-32) Anion Gap 13 (6-14) Blood Urea Nitrogen 46 mg/dL (7-20) Creatinine 1.5 mg/dL (0.6-1.0) Estimated GFR (Cockcroft-Gault) 42.0 Glucose Level 149 mg/dL (70-99) Calcium Level 10.8 mg/dL (8.5-10.1) Phosphorus Level 1.3 mg/dL (2.6-4.7) Magnesium Level 1.7 mg/dL (1.8-2.4) Test 02/05/20 05:26 02/05/20 06:32 02/05/20 07:39 02/05/20 08:45 Glucose (Fingerstick) 112 mg/dL (70-99) 114 mg/dL (70-99) 122 mg/dL (70-99) 130 mg/dL (70-99) Test 02/05/20 09:43 02/05/20 10:39 Glucose (Fingerstick) 132 mg/dL (70-99) 180 mg/dL (70-99) Micro Micro Microbiology 02/04/20 Urine Culture - Preliminary, Resulted 02/03/20 Blood Culture - Final, Complete Review of Systems Constitutional: yes: other (CONFUSED) Physical Exam General Appearance: no apparent distress Skin: warm Respiratory: bilateral CTA Heart: S1S2 Abdomen: soft, bowel sounds present Genitourinary: bladder flat Extremities: pulses present Neurology: confused Assessment Assessment IMP HYPOKALEMIA-BETTER HYPOTENSION-BETTER HX OF RENAL TX CAN - CKD - CR OF 1.5 LOW MAG AND PO4 HX OF CRYTOCOCCUS HX OF EPILEPSY ENCEPHALOPATHY CVA PLAN TO ICU OFF HER QUOC-I INCREASE HYDRATION START HYPERALIMENTATION POSSIBLE G TUBE CONT SUPPORTIVE CARE CONT PREDNISONE AND PROGRAF CHANGE PROGRAF TO IV UPDATED FAMILY WILL FOLLOW MO RODRIGUEZ MD Feb 05, 2020 11:33
[2020-02-05] MEDS ORDERED: MAGNESIUM SULFATE 2GM 50 ML IV ONE (12:00)
--- NOTE | 2020-02-05 12:17 | PDOC ---
Infectious Disease Note Subjective: Subjective Patient lethargic Does not respond Fever pattern improving Discussed with RN Patient is being transferred to ICU Vital Signs: Vital Signs Vital Signs Date Time Temp Pulse Resp B/P (MAP) Pulse Ox O2 Delivery O2 Flow Rate FiO2 02/05/20 11:13 99.6 93 20 96/45 (62) 95 Room Air 99.6 Physical Exam: PHYSICAL EXAM GENERAL: Patient lying in bedm lethargic, arousable but does not answer any questions HEENT: Pupils small and equal NECK: Supple LUNGS: Creased breath sound at the bases no accessory muscle use HEART: S1, S2. regular ABDOMEN: Soft, no grimacing on deep palpation , no guarding or rigidity no [place] EXTREMITIES: No edema, no cyanosis, no clubbing. Previous amputation site, left great and second toe scar intact. No draining wounds. SKIN: warm to touch. No generalized rash. 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: Opens eyes transiently, not answer any question PIV looks ok Medications: Inpatient Meds: Current Medications Medications (Trade) Dose Ordered Sig/Te Start Time Stop Time Status Last Admin Dose Admin Acetaminophen (Tylenol Supp) 650 mg PRN Q4HRS PRN 01/24/20 08:30 02/04/20 09:45 650 MG Acetaminophen (Tylenol) 1,000 mg PRN Q8HRS PRN 01/24/20 10:15 Amino Acids/ Glycerin/ Electrolytes 1,000 ml @ 75 mls/hr [id number] 01/24/20 13:45 01/30/20 10:00 DC 01/29/20 15:50 75 MLS/HR Aspirin (Aspirin Rectal Supp) 300 mg PRN DAILY PRN 01/24/20 08:30 02/04/20 09:56 300 MG Aspirin (Ecotrin) 81 mg DAILY 01/25/20 09:00 UNV Calcium Gluconate (Calcium Gluconate) 1,000 mg 1X ONCE 02/03/20 10:30 02/03/20 10:31 DC 02/03/20 10:49 1,000 MG Cefazolin Sodium (Ancef) 1 gm 1X ONCE 01/31/20 12:00 01/31/20 12:01 DC Clonidine HCl (Catapres Tts-1) 1 patch WEEKLY 02/04/20 10:00 02/04/20 11:36 1 PATCH Clonidine HCl (Catapres Tts-3) 1 patch 1X ONCE 01/24/20 05:30 01/24/20 05:31 DC Clonidine HCl (Catapres) 0.2 mg 1X ONCE 01/23/20 17:30 01/23/20 17:31 DC 01/23/20 17:38 0.2 MG Dextrose (Dextrose 50%-Water Syringe) 12.5 gm PRN Q15MIN PRN 02/04/20 08:30 Dextrose/Sodium Chloride 1,000 ml @ 100 mls/hr 1X ONCE 01/23/20 17:45 01/24/20 03:44 DC 01/23/20 19:24 100 MLS/HR Enalaprilat (Vasotec Inj) 1.25 mg PRN Q6HRS PRN 01/25/20 12:00 02/05/20 09:55 1.25 MG Enoxaparin Sodium (Lovenox 40mg Syringe) 40 mg Q24H 01/24/20 11:00 01/26/20 12:24 DC 01/26/20 10:12 40 MG Fluconazole (Diflucan) 200 mg DAILY 01/24/20 11:00 02/04/20 16:17 DC 02/03/20 10:49 200 MG Fluconazole/ Sodium Chloride 100 ml @ 100 mls/hr Q24H 02/04/20 17:00 02/04/20 16:47 100 MLS/HR Heparin Sodium (Porcine) (Hep Lock Adult) 500 unit 1X ONCE 02/03/20 15:45 02/03/20 15:49 DC 02/03/20 15:45 500 UNIT Heparin Sodium (Porcine) (Heparin Sodium) 5,000 unit Q12HR 02/04/20 10:15 02/05/20 09:00 5,000 UNIT Hydralazine HCl (Apresoline Inj) 10 mg PRN Q4HRS PRN 01/31/20 09:45 01/31/20 10:55 10 MG Hydralazine HCl (Apresoline) 25 mg BID 01/24/20 21:00 02/03/20 10:49 25 MG Info (Tpn Per Pharmacy) 1 each PRN DAILY PRN 02/03/20 10:00 02/04/20 13:00 1 EACH Insulin Glargine (Lantus Syringe) 18 unit QHS 01/24/20 21:00 02/04/20 16:11 DC 02/03/20 20:15 18 UNIT Insulin Human Lispro (HumaLOG) 0-9 UNITS TIDWMEALS 02/04/20 12:00 02/04/20 16:32 DC 02/04/20 14:44 9 UNITS Insulin Human Regular 100 unit/ Sodium Chloride 101 ml @ 0 mls/hr CONT PRN 02/04/20 16:15 02/04/20 21:30 13.9 MLS/HR Labetalol HCl (Normodyne Iv Push) 20 mg PRN Q4HRS PRN 01/24/20 04:15 02/04/20 23:44 20 MG Levetiracetam (Keppra) 500 mg BID 01/27/20 09:00 02/04/20 16:15 DC 02/03/20 10:49 500 MG Levetiracetam 500 mg/Dextrose 105 ml @ 420 mls/hr Q12HR 02/04/20 21:00 02/05/20 09:56 420 MLS/HR Lidocaine/ Epinephrine (LIDOCAINE 1%-EPI 1:100,000 Multi-Dose) 20 ml 1X ONCE 02/03/20 15:15 02/03/20 15:16 DC 02/03/20 15:35 6 ML Linezolid/Dextrose 300 ml @ 300 mls/hr Q12HR 02/03/20 11:00 02/04/20 10:18 DC 02/04/20 09:41 300 MLS/HR Lisinopril (Prinivil) 20 mg DAILY 01/24/20 12:00 02/02/20 11:51 DC 02/01/20 10:37 20 MG Lorazepam (Ativan Inj) 0.5 mg PRN Q4HRS PRN 01/24/20 16:45 02/05/20 04:19 0.5 MG Magnesium Sulfate 50 ml @ 25 mls/hr 1X ONCE 02/05/20 12:00 02/05/20 13:59 Methylprednisolone Sodium Succinate (SOLU-Medrol 40MG VIAL) 40 mg Q12HR 02/05/20 09:30 02/05/20 09:54 40 MG Morphine Sulfate (Morphine Sulfate) 2 mg PRN Q2HR PRN 01/23/20 17:45 01/24/20 17:44 DC Nicardipine HCl 50 mg/Sodium Chloride 250 ml @ 25 mls/hr CONT PRN 02/05/20 10:45 Non-Formulary Medication 0.5 ea BID 01/24/20 15:00 01/27/20 04:41 DC 01/24/20 21:12 0.5 EA Non-Formulary Medication 1 ea/ Sodium Chloride 50 ml @ 50 mls/hr Q12HR 02/05/20 21:00 Olanzapine (ZyPREXA) 10 mg QHS 01/24/20 21:00 01/27/20 09:52 DC 01/26/20 21:14 10 MG Ondansetron HCl (Zofran) 4 mg PRN Q8HRS PRN 01/23/20 17:45 01/24/20 17:44 DC Pharmacy Consult (Cyao Med Screen By Rx) 1 each 1X ONCE 01/24/20 09:00 01/24/20 09:01 DC 01/24/20 08:26 1 EACH Piperacillin Sod/ Tazobactam Sod (Zosyn Per Pharmacy) 1 each PRN DAILY PRN 01/24/20 04:30 01/24/20 09:32 DC Piperacillin Sod/ Tazobactam Sod 2.25 gm/Sodium Chloride 50 ml @ 100 mls/hr Q6HRS 02/04/20 12:00 02/05/20 05:24 100 MLS/HR Piperacillin Sod/ Tazobactam Sod 3.375 gm/Sodium Chloride 50 ml @ 100 mls/hr Q6H 01/24/20 05:00 01/24/20 09:30 DC 01/24/20 05:06 100 MLS/HR Potassium Phosphate 10 mmol/ Sodium Chloride 103.3333 ml @ 51.667 m... Q2H 02/05/20 12:00 02/05/20 15:59 Prednisone (Prednisone) 5 mg DAILY 01/27/20 09:00 02/05/20 09:29 DC 02/03/20 10:48 5 MG Propofol (Diprivan) 200 mg STK-MED ONCE 01/31/20 13:08 01/31/20 13:09 DC Quetiapine Fumarate (SEROquel) 25 mg BID 01/24/20 12:00 01/27/20 09:52 DC 01/26/20 21:14 25 MG Ringer's Solution 1,000 ml @ 75 mls/hr 1X ONCE 01/31/20 08:15 01/31/20 21:34 DC Sodium Chloride 20 meq/Sodium Acetate 70 meq/ Sodium Phosphate 13.6 mmol/ Magnesium Sulfate 5 meq/ Multivitamins 10 ml/Chromium/ Copper/Manganese/ Seleni/Zn 1 ml/ Insulin Human Regular 30 unit/ Total Parenteral Nutrition/Amino Acids/Dextrose/ Fat Emulsion Intravenous 1,512 ml @ 63 mls/hr TPN CONT 02/04/20 22:00 02/05/20 21:59 02/04/20 21:28 63 MLS/HR Sodium Chloride 90 meq/Magnesium Sulfate 5 meq/ Multivitamins 10 ml/Chromium/ Copper/Manganese/ Seleni/Zn 1 ml/ Insulin Human Regular 10 unit/ Total Parenteral Nutrition/Amino Acids/Dextrose/ Fat Emulsion Intravenous 1,512 ml @ 63 mls/hr TPN CONT 02/03/20 22:00 02/04/20 21:59 DC 02/03/20 21:49 63 MLS/HR Tacrolimus (Prograf Oral Susp) 0.5 mg STK-MED ONCE 01/24/20 21:00 01/27/20 14:30 DC Tacrolimus (Prograf) 0.5 mg BID 01/24/20 12:00 02/05/20 11:57 DC 02/03/20 10:49 0.5 MG Trazodone HCl (Desyrel) 50 mg QHS 01/24/20 21:00 01/27/20 09:52 DC 01/26/20 21:14 50 MG Vitamin B Complex/ Vitamin C (Vicki-Stacey) 1 tab DAILY 01/25/20 09:00 02/03/20 10:48 1 TAB Labs: Lab Laboratory Tests Test 02/04/20 12:15 02/04/20 16:02 02/04/20 17:38 02/04/20 18:42 Urine Collection Type Unknown Urine Color Yellow Urine Clarity Cloudy Urine pH 5.5 (<5.0-8.0) Urine Specific [place] 1.020 (1.000-1.030) Urine Protein >=300 mg/dL (NEG-TRACE) Urine Glucose (UA) >=1000 mg/dL (NEG) Urine Ketones (Stick) Negative mg/dL (NEG) Urine Blood Negative (NEG) Urine Nitrite Positive (NEG) Urine Bilirubin Negative (NEG) Urine Urobilinogen Dipstick 0.2 mg/dL (0.2 mg/dL) Urine Leukocyte Esterase Moderate (NEG) Urine RBC 0 /HPF (0-2) Urine WBC Tntc /HPF (0-4) Urine Squamous Epithelial Cells Occ /LPF Urine Bacteria Many /HPF (0-FEW) Glucose (Fingerstick) 505 mg/dL (70-99) 468 mg/dL (70-99) 469 mg/dL (70-99) Test 02/04/20 19:30 02/04/20 20:34 02/04/20 21:05 02/04/20 21:50 Glucose (Fingerstick) 348 mg/dL (70-99) 338 mg/dL (70-99) 299 mg/dL (70-99) Lactic Acid Level 2.0 mmol/L (0.4-2.0) Test 02/04/20 22:45 02/05/20 00:00 02/05/20 01:00 02/05/20 02:05 Glucose (Fingerstick) 218 mg/dL (70-99) 212 mg/dL (70-99) 173 mg/dL (70-99) 141 mg/dL (70-99) Test 02/05/20 03:00 02/05/20 03:11 02/05/20 04:05 02/05/20 05:26 White Blood Count 12.7 x10^3/uL (4.0-11.0) Red Blood Count 4.68 x10^6/uL (3.50-5.40) Hemoglobin 11.9 g/dL (12.0-15.5) Hematocrit 37.5 % (36.0-47.0) Mean Corpuscular Volume 80 fL (79-100) Mean Corpuscular Hemoglobin 25 pg (25-35) Mean Corpuscular Hemoglobin Concent 32 g/dL (31-37) Red Cell Distribution Width 16.4 % (11.5-14.5) Platelet Count 293 x10^3/uL (140-400) Neutrophils (%) (Auto) 83 % (31-73) Lymphocytes (%) (Auto) 5 % (24-48) Monocytes (%) (Auto) 12 % (0-9) Eosinophils (%) (Auto) 0 % (0-3) Basophils (%) (Auto) 0 % (0-3) Neutrophils # (Auto) 10.5 x10^3/uL (1.8-7.7) Lymphocytes # (Auto) 0.6 x10^3/uL (1.0-4.8) Monocytes # (Auto) 1.5 x10^3/uL (0.0-1.1) Eosinophils # (Auto) 0.0 x10^3/uL (0.0-0.7) Basophils # (Auto) 0.0 x10^3/uL (0.0-0.2) Sodium Level 147 mmol/L (136-145) Potassium Level 3.1 mmol/L (3.5-5.1) Chloride Level 113 mmol/L (98-107) Carbon Dioxide Level 21 mmol/L (21-32) Anion Gap 13 (6-14) Blood Urea Nitrogen 46 mg/dL (7-20) Creatinine 1.5 mg/dL (0.6-1.0) Estimated GFR (Cockcroft-Gault) 42.0 Glucose Level 149 mg/dL (70-99) Calcium Level 10.8 mg/dL (8.5-10.1) Phosphorus Level 1.3 mg/dL (2.6-4.7) Magnesium Level 1.7 mg/dL (1.8-2.4) Glucose (Fingerstick) 127 mg/dL (70-99) 119 mg/dL (70-99) 112 mg/dL (70-99) Test 02/05/20 06:32 02/05/20 07:39 02/05/20 08:45 02/05/20 09:43 Glucose (Fingerstick) 114 mg/dL (70-99) 122 mg/dL (70-99) 130 mg/dL (70-99) 132 mg/dL (70-99) Test 02/05/20 10:39 02/05/20 11:49 Glucose (Fingerstick) 180 mg/dL (70-99) 162 mg/dL (70-99) Micro Cultures negative Cryptococcal antigen in the blood 1 is to 40 CSF unremarkable CSF Fungal cults cancelled Objective: Assessment: Gram negative sepsis 02/02 2 out of 4 bottles, source could be , urine cultures pending at this time Leucocytosis improved Low-grade fever Hypertensive urgency Encephalopathy. History of epilepsy. Diabetes with peripheral neuropathy. h/o disseminated cryptococcus, on fluconazole. CSF cryptococcal antigen negative i January 27 2000 Gastroesophageal reflux disease. Peripheral arterial disease. Chronic kidney disease, status post renal transplant. Immunosuppression Coronary artery disease. COVID-19 neg, 01/23 Plan: Plan of Care Patient's condition has deteriorated Patient transferred to ICU Continue Zosyn 02/02, white count has improved, afebrile Repeat CT head negative CT abdomen and pelvis reviewed Continue chronic fluconazole treatment maintain aspiration precautions Follow-up labs and cultures, Follow-up UA and urine culture, still pending F/U GNR in blood culture Supportive care Prognosis poor Discussed with LINDY OCASIO MD Feb 05, 2020 12:17
[2020-02-05] MEDS: IV NORMAL SALINE 1000ML BAG 1,000 ML IV SCH ×2 (12:32→23:51)
[2020-02-05] MEDS: POTASSIUM PHOS,M-BASIC-D-BASIC 10 MMOL in IV NORMAL SALINE 100ML 100 ML IV SCH ×2 (12:32→15:41)
[2020-02-05] MEDS: TPN PER PHARMACY MC PRN (13:18)
--- NOTE | 2020-02-05 13:32 | NUR ---
Pharmacy TPN Dosing Note S: DIANA WATERS is a 64 year old F Currently receiving Central Continuous TPN started 02/03/20 B:Pertinent PMH: failed PEG tube insertion Height: 5 feet, 6 inches Weight: 68.8 kg Current diet: NPO LABS: Sodium: 147 Potassium: 3.1 Chloride: 113 Calcium: 10.8 Corrected Calcium: 12.16 Magnesium: 1.7 CO2: 21 SCr: 1.8 Glucose: 162 Albumin: 2.3 AST: 28 ALT: 23 TPN FORMULA: TPN TYPE: Central Continuous AMINO ACIDS: 60 gm DEXTROSE: 120 gm LIPIDS: 20 gm SODIUM CHLORIDE: 0 mEq SODIUM ACETATE: 40 mEq SODIUM PHOSPHATE: 20 mmol POTASSIUM CHLORIDE: mEq POTASSIUM ACETATE: 30 mEq POTASSIUM PHOSPHATE: mmol MAGNESIUM: 10 mEq CALCIUM: mEq INSULIN: 30 units MULTIPLE VITAMIN: 10 ml TRACE ELEMENTS: 1 ml(s) TPN PLAN: CHANGE NACL TO NAACETATE 40 MEQ, ADD K ACETATE 30 MEQ, CHANGE NAPHOS TO KPHOS 20 MM, AND INCREASE MAGSO4 TO 10 MEQ R: CONT TPN AT SAME RATE. Will monitor electrolytes, glucose, and tolerance to TPN. AMBROSE BECERRA [facility], 02/05/20 [id number]
[2020-02-05] MEDS: INSULIN LISPRO 300 UNITS/3 ML VIAL. SQ SCH ×2 (16:00→23:03)
[2020-02-05] MEDS: FLUCONAZOLE 200MG/100ML PREMIX 100 ML IV SCH (17:31)
[2020-02-05] MEDS ORDERED: DEXTROSE 70% IV SCH ×10 (22:00)
[2020-02-05] MEDS ORDERED: TOTAL PARENTERAL NUTRITION IV SCH ×10 (22:00)
[2020-02-05] MEDS ORDERED: AMINO ACID IV SCH ×10 (22:00)
[2020-02-05] MEDS ORDERED: [UNRECOGNIZED DRUG - OTHER] IV SCH ×10 (22:00)
[2020-02-05] MEDS: INSULIN GLARGINE SYRINGE. SQ SCH (23:01)
[2020-02-05] MEDS ORDERED: TACROLIMUS IV ONE (23:30)
[2020-02-05] MEDS: NON FORMULARY ITEM 1 EA in IV NORMAL SALINE 50ML 50 ML IV SCH (23:34)
[2020-02-06] VITALS (24 sets, daily range): BP systolic 140–220; BP diastolic 51–95
[2020-02-06] MEDS: PIPERACILLIN/TAZOBACTAM 2.25 GM in IV NORMAL SALINE 50ML 50 ML IV SCH ×4 (02:10→17:35)
[2020-02-06] MEDS: INSULIN LISPRO 300 UNITS/3 ML VIAL. SQ SCH ×6 (02:19→20:19)
[2020-02-06 06:10] LABS: BASO % 0 % (0-3); EOS % 0 % (0-3); HEMATOCRIT 32.2 % (36.0-47.0); HEMOGLOBIN 10.2 g/dL (12.0-15.5); LYMPH # 0.6 x10^3/uL (1.0-4.8); LYMPH % 5 % (24-48); MEAN CORPUSCULAR HEMOGLOBIN 25 pg (25-35); MEAN CORPUSCULAR HGB CONC 32 g/dL (31-37); MEAN CORPUSCULAR VOLUME 80 fL (79-100); MONO # 0.6 x10^3/uL (0.0-1.1); MONO % 4 % (0-9); NEUT # 12.4 x10^3/uL (1.8-7.7); NEUT % 91 % (31-73); PLATELET COUNT 268 x10^3/uL (140-400); RED BLOOD COUNT 4.04 x10^6/uL (3.50-5.40); RED CELL DISTRIBUTION WIDTH 16.5 % (11.5-14.5); WHITE BLOOD COUNT 13.6 x10^3/uL (4.0-11.0)
[2020-02-06 06:30] LABS: CALCIUM 9.2 mg/dL (8.5-10.1); CREATININE 1.8 mg/dL (0.6-1.0); GFR 34.1; PHOSPHORUS 3.1 mg/dL (2.6-4.7); POTASSIUM 3.7 mmol/L (3.5-5.1)
--- NOTE | 2020-02-06 07:57 | PDOC ---
Infectious Disease Note Subjective: Subjective Patient transferred to ICU yesterday still lethargic Minimally arousable Hypertensive, tachycardic no fevers Not on pressors Discussed with RN Vital Signs: Vital Signs Vital Signs Date Time Temp Pulse Resp B/P (MAP) Pulse Ox O2 Delivery O2 Flow Rate FiO2 02/06/20 06:00 89 22 153/59 (90) 98 Room Air 02/06/20 04:00 98.8 98.8 Physical Exam: PHYSICAL EXAM GENERAL: Patient lying in bedm lethargic, arousable but does not answer any questions HEENT: Pupils small and equal NECK: Supple LUNGS: Creased breath sound at the bases no accessory muscle use HEART: S1, S2. regular ABDOMEN: Soft, no grimacing on deep palpation , no guarding or rigidity no [place] EXTREMITIES: No edema, no cyanosis, no clubbing. Previous amputation site, left great and second toe scar intact. No draining wounds. SKIN: warm to touch. No generalized rash. 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, not answer any question PIV looks ok Medications: Inpatient Meds: Current Medications Medications (Trade) Dose Ordered Sig/Te Start Time Stop Time Status Last Admin Dose Admin Acetaminophen (Tylenol Supp) 650 mg PRN Q4HRS PRN 01/24/20 08:30 02/04/20 09:45 650 MG Acetaminophen (Tylenol) 1,000 mg PRN Q8HRS PRN 01/24/20 10:15 Amino Acids/ Glycerin/ Electrolytes 1,000 ml @ 75 mls/hr [id number] 01/24/20 13:45 01/30/20 10:00 DC 01/29/20 15:50 75 MLS/HR Aspirin (Aspirin Rectal Supp) 300 mg PRN DAILY PRN 01/24/20 08:30 02/04/20 09:56 300 MG Aspirin (Ecotrin) 81 mg DAILY 01/25/20 09:00 UNV Calcium Gluconate (Calcium Gluconate) 1,000 mg 1X ONCE 02/03/20 10:30 02/03/20 10:31 DC 02/03/20 10:49 1,000 MG Cefazolin Sodium (Ancef) 1 gm 1X ONCE 01/31/20 12:00 01/31/20 12:01 DC Clonidine HCl (Catapres Tts-1) 1 patch WEEKLY 02/04/20 10:00 02/04/20 11:36 1 PATCH Clonidine HCl (Catapres Tts-3) 1 patch 1X ONCE 01/24/20 05:30 01/24/20 05:31 DC Clonidine HCl (Catapres) 0.2 mg 1X ONCE 01/23/20 17:30 01/23/20 17:31 DC 01/23/20 17:38 0.2 MG Dextrose (Dextrose 50%-Water Syringe) 12.5 gm PRN Q15MIN PRN 02/04/20 08:30 Dextrose/Sodium Chloride 1,000 ml @ 100 mls/hr 1X ONCE 01/23/20 17:45 01/24/20 03:44 DC 01/23/20 19:24 100 MLS/HR Enalaprilat (Vasotec Inj) 1.25 mg PRN Q6HRS PRN 01/25/20 12:00 02/05/20 09:55 1.25 MG Enoxaparin Sodium (Lovenox 40mg Syringe) 40 mg Q24H 01/24/20 11:00 01/26/20 12:24 DC 01/26/20 10:12 40 MG Fluconazole (Diflucan) 200 mg DAILY 01/24/20 11:00 02/04/20 16:17 DC 02/03/20 10:49 200 MG Fluconazole/ Sodium Chloride 100 ml @ 100 mls/hr Q24H 02/04/20 17:00 02/05/20 17:31 100 MLS/HR Heparin Sodium (Porcine) (Hep Lock Adult) 500 unit 1X ONCE 02/03/20 15:45 02/03/20 15:49 DC 02/03/20 15:45 500 UNIT Heparin Sodium (Porcine) (Heparin Sodium) 5,000 unit Q12HR 02/04/20 10:15 02/05/20 23:24 5,000 UNIT Hydralazine HCl (Apresoline Inj) 10 mg PRN Q4HRS PRN 01/31/20 09:45 01/31/20 10:55 10 MG Hydralazine HCl (Apresoline) 25 mg BID 01/24/20 21:00 02/03/20 10:49 25 MG Info (Tpn Per Pharmacy) 1 each PRN DAILY PRN 02/03/20 10:00 02/05/20 13:18 1 EACH Insulin Glargine (Lantus Syringe) 18 unit QHS 02/05/20 21:00 02/05/20 23:01 18 UNIT Insulin Human Lispro (HumaLOG) 0-9 UNITS Q4HRS 02/05/20 16:00 02/06/20 05:57 9 UNITS Insulin Human Regular 100 unit/ Sodium Chloride 101 ml @ 0 mls/hr CONT PRN 02/04/20 16:15 02/05/20 16:11 DC 02/04/20 21:30 13.9 MLS/HR Labetalol HCl (Normodyne Iv Push) 20 mg PRN Q4HRS PRN 01/24/20 04:15 02/04/20 23:44 20 MG Levetiracetam (Keppra) 500 mg BID 01/27/20 09:00 02/04/20 16:15 DC 02/03/20 10:49 500 MG Levetiracetam 500 mg/Dextrose 105 ml @ 420 mls/hr Q12HR 02/04/20 21:00 02/05/20 23:51 420 MLS/HR Lidocaine/ Epinephrine (LIDOCAINE 1%-EPI 1:100,000 Multi-Dose) 20 ml 1X ONCE 02/03/20 15:15 02/03/20 15:16 DC 02/03/20 15:35 6 ML Linezolid/Dextrose 300 ml @ 300 mls/hr Q12HR 02/03/20 11:00 02/04/20 10:18 DC 02/04/20 09:41 300 MLS/HR Lisinopril (Prinivil) 20 mg DAILY 01/24/20 12:00 02/02/20 11:51 DC 02/01/20 10:37 20 MG Lorazepam (Ativan Inj) 0.5 mg PRN Q4HRS PRN 01/24/20 16:45 02/05/20 23:59 0.5 MG Magnesium Sulfate 50 ml @ 25 mls/hr 1X ONCE 02/05/20 12:00 02/05/20 13:59 DC 02/05/20 12:54 25 MLS/HR Methylprednisolone Sodium Succinate (SOLU-Medrol 40MG VIAL) 40 mg Q12HR 02/05/20 09:30 02/05/20 23:23 40 MG Morphine Sulfate (Morphine Sulfate) 2 mg PRN Q2HR PRN 01/23/20 17:45 01/24/20 17:44 DC Nicardipine HCl 50 mg/Sodium Chloride 250 ml @ 25 mls/hr CONT PRN 02/05/20 10:45 02/05/20 22:06 25 MLS/HR Non-Formulary Medication 0.5 ea BID 01/24/20 15:00 01/27/20 04:41 DC 01/24/20 21:12 0.5 EA Non-Formulary Medication 1 ea/ Sodium Chloride 50 ml @ 50 mls/hr Q12HR 02/05/20 21:00 02/05/20 23:34 50 MLS/HR Olanzapine (ZyPREXA) 10 mg QHS 01/24/20 21:00 01/27/20 09:52 DC 01/26/20 21:14 10 MG Ondansetron HCl (Zofran) 4 mg PRN Q8HRS PRN 01/23/20 17:45 01/24/20 17:44 DC Pharmacy Consult (C.diff Med Screen By Rx) 1 each 1X ONCE 01/24/20 09:00 01/24/20 09:01 DC 01/24/20 08:26 1 EACH Piperacillin Sod/ Tazobactam Sod (Zosyn Per Pharmacy) 1 each PRN DAILY PRN 01/24/20 04:30 01/24/20 09:32 DC Piperacillin Sod/ Tazobactam Sod 2.25 gm/Sodium Chloride 50 ml @ 100 mls/hr Q6HRS 02/04/20 12:00 02/06/20 05:56 100 MLS/HR Piperacillin Sod/ Tazobactam Sod 3.375 gm/Sodium Chloride 50 ml @ 100 mls/hr Q6H 01/24/20 05:00 01/24/20 09:30 DC 01/24/20 05:06 100 MLS/HR Potassium Phosphate 10 mmol/ Sodium Chloride 103.3333 ml @ 51.667 m... Q2H 02/05/20 12:00 02/05/20 15:59 DC 02/05/20 15:41 51.667 MLS/HR Prednisone (Prednisone) 5 mg DAILY 01/27/20 09:00 02/05/20 09:29 DC 02/03/20 10:48 5 MG Propofol (Diprivan) 200 mg STK-MED ONCE 01/31/20 13:08 01/31/20 13:09 DC Quetiapine Fumarate (SEROquel) 25 mg BID 01/24/20 12:00 01/27/20 09:52 DC 01/26/20 21:14 25 MG Ringer's Solution 1,000 ml @ 75 mls/hr 1X ONCE 01/31/20 08:15 01/31/20 21:34 DC Sodium Acetate 40 meq/Potassium Phosphate 20 mmol/ Magnesium Sulfate 10 meq/ Multivitamins 10 ml/Chromium/ Copper/Manganese/ Seleni/Zn 1 ml/ Insulin Human Regular 30 unit/ Potassium Acetate 30 meq/Total Parenteral Nutrition/Amino Acids/Dextrose/ Fat Emulsion Intravenous 1,512 ml @ 63 mls/hr TPN CONT 02/05/20 22:00 02/06/20 21:59 02/05/20 23:04 63 MLS/HR Sodium Chloride 20 meq/Sodium Acetate 70 meq/ Sodium Phosphate 13.6 mmol/ Magnesium Sulfate 5 meq/ Multivitamins 10 ml/Chromium/ Copper/Manganese/ Seleni/Zn 1 ml/ Insulin Human Regular 30 unit/ Total Parenteral Nutrition/Amino Acids/Dextrose/ Fat Emulsion Intravenous 1,512 ml @ 63 mls/hr TPN CONT 02/04/20 22:00 02/05/20 21:59 DC 02/04/20 21:28 63 MLS/HR Sodium Chloride 90 meq/Magnesium Sulfate 5 meq/ Multivitamins 10 ml/Chromium/ Copper/Manganese/ Seleni/Zn 1 ml/ Insulin Human Regular 10 unit/ Total Parenteral Nutrition/Amino Acids/Dextrose/ Fat Emulsion Intravenous 1,512 ml @ 63 mls/hr TPN CONT 02/03/20 22:00 02/04/20 21:59 DC 02/03/20 21:49 63 MLS/HR Tacrolimus (Prograf Oral Susp) 0.5 mg STK-MED ONCE 01/24/20 21:00 01/27/20 14:30 DC Tacrolimus (Prograf) 0.5 mg BID 01/24/20 12:00 02/05/20 11:57 DC 02/03/20 10:49 0.5 MG Trazodone HCl (Desyrel) 50 mg QHS 01/24/20 21:00 01/27/20 09:52 DC 01/26/20 21:14 50 MG Vitamin B Complex/ Vitamin C (Vicki-Stacey) 1 tab DAILY 01/25/20 09:00 02/03/20 10:48 1 TAB Labs: Lab Laboratory Tests Test 02/05/20 08:45 02/05/20 09:43 02/05/20 10:39 02/05/20 11:49 Glucose (Fingerstick) 130 mg/dL (70-99) 132 mg/dL (70-99) 180 mg/dL (70-99) 162 mg/dL (70-99) Test 02/05/20 13:29 02/05/20 14:34 02/05/20 15:38 02/05/20 22:03 Glucose (Fingerstick) 126 mg/dL (70-99) 126 mg/dL (70-99) 158 mg/dL (70-99) 357 mg/dL (70-99) Test 02/06/20 02:15 02/06/20 05:50 02/06/20 05:55 Glucose (Fingerstick) 393 mg/dL (70-99) 318 mg/dL (70-99) White Blood Count 13.6 x10^3/uL (4.0-11.0) Red Blood Count 4.04 x10^6/uL (3.50-5.40) Hemoglobin 10.2 g/dL (12.0-15.5) Hematocrit 32.2 % (36.0-47.0) Mean Corpuscular Volume 80 fL (79-100) Mean Corpuscular Hemoglobin 25 pg (25-35) Mean Corpuscular Hemoglobin Concent 32 g/dL (31-37) Red Cell Distribution Width 16.5 % (11.5-14.5) Platelet Count 268 x10^3/uL (140-400) Neutrophils (%) (Auto) 91 % (31-73) Lymphocytes (%) (Auto) 5 % (24-48) Monocytes (%) (Auto) 4 % (0-9) Eosinophils (%) (Auto) 0 % (0-3) Basophils (%) (Auto) 0 % (0-3) Neutrophils # (Auto) 12.4 x10^3/uL (1.8-7.7) Lymphocytes # (Auto) 0.6 x10^3/uL (1.0-4.8) Monocytes # (Auto) 0.6 x10^3/uL (0.0-1.1) Eosinophils # (Auto) 0.0 x10^3/uL (0.0-0.7) Basophils # (Auto) 0.0 x10^3/uL (0.0-0.2) Sodium Level 143 mmol/L (136-145) Potassium Level 3.7 mmol/L (3.5-5.1) Chloride Level 112 mmol/L (98-107) Carbon Dioxide Level 21 mmol/L (21-32) Anion Gap 10 (6-14) Blood Urea Nitrogen 64 mg/dL (7-20) Creatinine 1.8 mg/dL (0.6-1.0) Estimated GFR (Cockcroft-Gault) 34.1 Glucose Level 343 mg/dL (70-99) Calcium Level 9.2 mg/dL (8.5-10.1) Phosphorus Level 3.1 mg/dL (2.6-4.7) Magnesium Level 2.0 mg/dL (1.8-2.4) Micro Cultures negative Cryptococcal antigen in the blood 1 is to 40 CSF unremarkable CSF Fungal cults cancelled Objective: Assessment: E coli sepsis 02/02 2 out of 4 bottles, source E coli UTI Leucocytosis Low-grade fever Hypertensive urgency Encephalopathy. Not improving History of epilepsy. Diabetes with peripheral neuropathy. h/o disseminated cryptococcus, on fluconazole. CSF cryptococcal antigen negative i January 27 2000 Gastroesophageal reflux disease. Peripheral arterial disease. Chronic kidney disease, status post renal transplant. Immunosuppression Coronary artery disease. COVID-19 neg, 01/23 Plan: Plan of Care Continue Zosyn 02/02, F/U E coli in bc and uc CT abdomen and pelvis reviewed Continue chronic fluconazole treatment maintain aspiration precautions Follow-up labs and cultures, Supportive care Prognosis very poor Discussed with daughter and granddaughter at bedside Discussed with LNIDY OCASIO MD Feb 06, 2020 07:57
[2020-02-06] MEDS: ASPIRIN ENTERIC COATED 325 MG TABLET.DR. PO SCH (08:00)
[2020-02-06] MEDS: hydrALAZINE 25 MG TABLET PO SCH ×2 (08:38→20:48)
[2020-02-06] MEDS: FOLIC/VIT B COMP W-C (RENAL) TABLET. PO SCH (08:38)
[2020-02-06] MEDS ORDERED: TACROLIMUS IV ONE (09:00)
[2020-02-06] MEDS: NON FORMULARY ITEM 1 EA in IV NORMAL SALINE 50ML 50 ML IV SCH (09:05)
[2020-02-06] MEDS: methylPREDNISolone SOD SUCC PF 40 MG/ML VIAL. IV SCH (09:08)
[2020-02-06] MEDS: HEPARIN for SUB-Q USE 5,000 UNIT/ML VIAL. SQ SCH ×2 (09:15→20:48)
[2020-02-06] MEDS ORDERED: cloNIDine TTS-1 1 PATCH PATCH.TDWK TD SCH (09:45)
--- NOTE | 2020-02-06 09:48 | PDOC ---
PROGRESS NOTES Subjective Subjective seen in ICU ,unresponsive Objective Objective Vital Signs Date Time Temp Pulse Resp B/P (MAP) Pulse Ox O2 Delivery O2 Flow Rate FiO2 02/06/20 06:00 89 22 153/59 (90) 98 Room Air 02/06/20 04:00 98.8 98.8 Intake and Output 02/06/20 06:59 Intake Total 1332 ml Output Total 765 ml Balance 567 ml Intake Oral 0 ml IV Total 1332 ml Output Urine Total 765 ml Physical Exam Abdomen: Soft Heart: Regular rate Extremities: No clubbing, No cyanosis HEENT: Atraumatic Lungs: Clear to auscultation MUSCULOSKELETAL: No deformity, No swelling Neuro: Other (unesponsive) Skin: No rashes, No breakdown Diagnosis Problem List Problems Medical Problems: (1) Cough Status: Acute (2) Left-sided weakness Status: Acute Assessment Assessment Problems Medical Problems: (1) Cough Status: Acute (2) Left-sided weakness Status: Acute encephalopathy/mental status changes Acute sepsis ,E coli bacteremia gram neg bacteremia,positive blood c/s 2/4 bottles high sugars due to TPN Metabolic Encephalopathy. Brain MRI neg acute findings , old CVA History of epilepsy. Diabetes with peripheral neuropathy. h/o disseminated cryptococcus, on fluconazole. Gastroesophageal reflux disease. History of kidney transplant. Peripheral arterial disease. Chronic kidney disease, status post renal transplant. Coronary artery disease.s/p cabg COVID-19 neg, 01/23 Plan Plan of Care: stat CT head no new stroke or bleed family decided on code status,DNR positive blood c/s 2/4 gram neg,E Coli urine c/s -positive for infection, E coli cxr infiltrates both lungs wbc 20 down to 14 bun 99/cr 2.9 down to 70 /1.9 today bun 45/cr 1.7 central line placed TPN started iv Zosyn + for pneumonia monitor kidney function dubhoff tube lovenox for DVT prevention off insulin drip . Off cardine drip spoke with family social service consult for select Plan Plan of Care Problems Medical Problems: (1) Cough Status: Acute (2) Left-sided weakness Status: Acute Comment Review of Relevant I have reviewed the following items warner (where applicable) has been applied. Labs Laboratory Tests Test 02/05/20 10:39 02/05/20 11:49 02/05/20 13:29 02/05/20 14:34 Glucose (Fingerstick) 180 mg/dL (70-99) 162 mg/dL (70-99) 126 mg/dL (70-99) 126 mg/dL (70-99) Test 02/05/20 15:38 02/05/20 22:03 02/06/20 02:15 02/06/20 05:50 Glucose (Fingerstick) 158 mg/dL (70-99) 357 mg/dL (70-99) 393 mg/dL (70-99) White Blood Count 13.6 x10^3/uL (4.0-11.0) Red Blood Count 4.04 x10^6/uL (3.50-5.40) Hemoglobin 10.2 g/dL (12.0-15.5) Hematocrit 32.2 % (36.0-47.0) Mean Corpuscular Volume 80 fL (79-100) Mean Corpuscular Hemoglobin 25 pg (25-35) Mean Corpuscular Hemoglobin Concent 32 g/dL (31-37) Red Cell Distribution Width 16.5 % (11.5-14.5) Platelet Count 268 x10^3/uL (140-400) Neutrophils (%) (Auto) 91 % (31-73) Lymphocytes (%) (Auto) 5 % (24-48) Monocytes (%) (Auto) 4 % (0-9) Eosinophils (%) (Auto) 0 % (0-3) Basophils (%) (Auto) 0 % (0-3) Neutrophils # (Auto) 12.4 x10^3/uL (1.8-7.7) Lymphocytes # (Auto) 0.6 x10^3/uL (1.0-4.8) Monocytes # (Auto) 0.6 x10^3/uL (0.0-1.1) Eosinophils # (Auto) 0.0 x10^3/uL (0.0-0.7) Basophils # (Auto) 0.0 x10^3/uL (0.0-0.2) Sodium Level 143 mmol/L (136-145) Potassium Level 3.7 mmol/L (3.5-5.1) Chloride Level 112 mmol/L (98-107) Carbon Dioxide Level 21 mmol/L (21-32) Anion Gap 10 (6-14) Blood Urea Nitrogen 64 mg/dL (7-20) Creatinine 1.8 mg/dL (0.6-1.0) Estimated GFR (Cockcroft-Gault) 34.1 Glucose Level 343 mg/dL (70-99) Calcium Level 9.2 mg/dL (8.5-10.1) Phosphorus Level 3.1 mg/dL (2.6-4.7) Magnesium Level 2.0 mg/dL (1.8-2.4) Test 02/06/20 05:55 Glucose (Fingerstick) 318 mg/dL (70-99) Microbiology 02/05/20 Blood Culture - Preliminary, Resulted NO GROWTH AFTER 1 DAY 02/04/20 Urine Culture - Final, Complete 02/04/20 Antimicrobic Susceptibility - Final, Complete Medications Current Medications Insulin Glargine (Lantus Syringe) 18 unit QHS SQ Last administered on 02/05/20at 23:01; Start 02/05/20 at 21:00 Insulin Human Lispro (HumaLOG) 0-9 UNITS Q4HRS SQ Last administered on 02/06/20at 09:32; Start 02/05/20 at 16:00 Magnesium Sulfate 50 ml @ 25 mls/hr 1X ONCE IV Last administered on 02/05/20at 12:54; Start 02/05/20 at 12:00; Stop 02/05/20 at 13:59; Status DC Nicardipine HCl 50 mg/Sodium Chloride 250 ml @ 25 mls/hr CONT PRN IV SEE I/O RECORD Last administered on 02/05/20at 22:06; Start 02/05/20 at 10:45 Non-Formulary Medication 1 ea/ Sodium Chloride 50 ml @ 50 mls/hr Q12HR IV Last administered on 02/06/20at 09:05; Start 02/05/20 at 21:00 Potassium Phosphate 10 mmol/ Sodium Chloride 103.3333 ml @ 51.667 m... Q2H IV Last administered on 02/05/20at 15:41; Start 02/05/20 at 12:00; Stop 02/05/20 at 15:59; Status DC Sodium Acetate 40 meq/Potassium Phosphate 20 mmol/ Magnesium Sulfate 10 meq/ Multivitamins 10 ml/Chromium/ Copper/Manganese/ Seleni/Zn 1 ml/ Insulin Human Regular 30 unit/ Potassium Acetate 30 meq/Total Parenteral Nutrition/Amino Acids/Dextrose/ Fat Emulsion Intravenous 1,512 ml @ 63 mls/hr TPN CONT IV Last administered on 02/05/20at 23:04; Start 02/05/20 at 22:00; Stop 02/06/20 at 21:59 Vitals/I & O Vital Sign - Last 24 Hours 02/05/20 02/05/20 02/05/20 02/05/20 09:55 11:13 12:15 12:30 Temp 99.6 98.6 99.6 98.6 Pulse 86 93 98 94 Resp B/P (MAP) 203/80 96/45 (62) 231/101 (144) 217/93 (134) Pulse Ox 95 98 98 O2 Delivery Room Air Room Air Room Air 02/05/20 02/05/20 02/05/20 02/05/20 12:45 13:00 13:15 14:00 Pulse 96 93 94 93 Resp 34 B/P (MAP) 192/86 (121) 175/73 (107) 164/68 (100) 169/68 (101) Pulse Ox 98 99 99 97 O2 Delivery Room Air Room Air Room Air Room Air 02/05/20 02/05/20 02/05/20 02/05/20 15:00 16:00 17:00 18:00 Temp 98.4 98.4 Pulse 80 94 91 81 Resp B/P (MAP) 133/51 (78) 175/71 (105) 168/61 (96) 110/40 (63) Pulse Ox 97 99 98 95 O2 Delivery Room Air Room Air Room Air Room Air 02/05/20 02/05/20 02/05/20 02/05/20 19:00 20:00 20:00 21:00 Temp 98.6 98.6 Pulse 76 80 79 Resp B/P (MAP) 153/54 (87) 120/43 (68) 132/47 (75) Pulse Ox 97 96 97 O2 Delivery Room Air Room Air Room Air Room Air 02/05/20 02/05/20 02/06/20 02/06/20 22:00 23:00 00:01 00:01 Temp 98.7 98.7 Pulse 85 92 90 Resp 22 B/P (MAP) 160/58 (92) 154/64 (94) 140/53 (82) Pulse Ox 99 96 96 O2 Delivery Room Air Room Air Room Air Room Air 02/06/20 02/06/20 02/06/20 02/06/20 01:00 02:00 03:00 04:00 Temp 98.8 98.8 Pulse 78 79 80 72 Resp 22 23 22 22 B/P (MAP) 147/58 (87) 160/60 (93) 153/51 (85) 155/51 (85) Pulse Ox 98 98 98 98 O2 Delivery Room Air Room Air Room Air Room Air 02/06/20 02/06/20 02/06/20 04:00 05:00 06:00 Pulse 72 89 Resp 22 22 B/P (MAP) 150/60 (90) 153/59 (90) Pulse Ox 98 98 O2 Delivery Room Air Room Air Room Air Intake and Output 02/05/20 02/05/20 02/06/20 14:59 22:59 06:59 Intake Total 153 ml 1179 ml Output Total 490 ml 115 ml 160 ml Balance -337 ml 1064 ml -160 ml Justicifation of Admission Dx: Justifications for Admission: Justification of Admission Dx: Yes Comminuty Aquired Pneumonia: Immunocomprimised Pt Sepsis: Altered Mental Status Altered Mental Status: Altered Mental Status Nutrition Consultation Dietary Evaluation: Recommendations by RD: Dietary education by RD, PPN/TPN Comments: NPO per CUSTOMER EXPERIENCE CONSULTANT REC TPN: 195 g dextrose, 60 g AA, 20 g lipid at this time as G tube placement is on hold. Expected Outcomes/Goals: New goal 02/02: to meet >60-65% est nutr needs via TPN - goal ongoing Malnutrition Findings: Body Fat Depletion (Non Severe: Mild Depletion Weight Status: Appropriate AUGUSTO BRUNER MD Feb 06, 2020 09:48
--- NOTE | 2020-02-06 10:41 | PDOC ---
Renal-Progress Notes Subjective Notes Notes CONFUSED History of Present Illness Hx of present illness NOT ANY BETTER Vitals Vitals Vital Signs Date Time Temp Pulse Resp B/P (MAP) Pulse Ox O2 Delivery O2 Flow Rate FiO2 02/06/20 06:00 89 22 153/59 (90) 98 Room Air 02/06/20 04:00 98.8 98.8 Weight Weight [ ] I.O. Intake and Output Intake and Output 02/06/20 07:00 Intake Total 1332 ml Output Total 765 ml Balance 567 ml Intake Oral 0 ml IV Total 1332 ml Output Urine Total 765 ml Labs Labs Laboratory Tests Test 02/05/20 11:49 02/05/20 13:29 02/05/20 14:34 02/05/20 15:38 Glucose (Fingerstick) 162 mg/dL (70-99) 126 mg/dL (70-99) 126 mg/dL (70-99) 158 mg/dL (70-99) Test 02/05/20 22:03 02/06/20 02:15 02/06/20 05:50 02/06/20 05:55 Glucose (Fingerstick) 357 mg/dL (70-99) 393 mg/dL (70-99) 318 mg/dL (70-99) White Blood Count 13.6 x10^3/uL (4.0-11.0) Red Blood Count 4.04 x10^6/uL (3.50-5.40) Hemoglobin 10.2 g/dL (12.0-15.5) Hematocrit 32.2 % (36.0-47.0) Mean Corpuscular Volume 80 fL (79-100) Mean Corpuscular Hemoglobin 25 pg (25-35) Mean Corpuscular Hemoglobin Concent 32 g/dL (31-37) Red Cell Distribution Width 16.5 % (11.5-14.5) Platelet Count 268 x10^3/uL (140-400) Neutrophils (%) (Auto) 91 % (31-73) Lymphocytes (%) (Auto) 5 % (24-48) Monocytes (%) (Auto) 4 % (0-9) Eosinophils (%) (Auto) 0 % (0-3) Basophils (%) (Auto) 0 % (0-3) Neutrophils # (Auto) 12.4 x10^3/uL (1.8-7.7) Lymphocytes # (Auto) 0.6 x10^3/uL (1.0-4.8) Monocytes # (Auto) 0.6 x10^3/uL (0.0-1.1) Eosinophils # (Auto) 0.0 x10^3/uL (0.0-0.7) Basophils # (Auto) 0.0 x10^3/uL (0.0-0.2) Sodium Level 143 mmol/L (136-145) Potassium Level 3.7 mmol/L (3.5-5.1) Chloride Level 112 mmol/L (98-107) Carbon Dioxide Level 21 mmol/L (21-32) Anion Gap 10 (6-14) Blood Urea Nitrogen 64 mg/dL (7-20) Creatinine 1.8 mg/dL (0.6-1.0) Estimated GFR (Cockcroft-Gault) 34.1 Glucose Level 343 mg/dL (70-99) Calcium Level 9.2 mg/dL (8.5-10.1) Phosphorus Level 3.1 mg/dL (2.6-4.7) Magnesium Level 2.0 mg/dL (1.8-2.4) Micro Micro Microbiology 02/05/20 Blood Culture - Preliminary, Resulted NO GROWTH AFTER 1 DAY 02/04/20 Urine Culture - Final, Complete 02/04/20 Antimicrobic Susceptibility - Final, Complete Review of Systems Constitutional: yes: other (CONFUSED) Physical Exam General Appearance: no apparent distress Skin: warm Respiratory: bilateral CTA Heart: S1S2 Abdomen: soft, bowel sounds present Genitourinary: bladder flat Extremities: pulses present Neurology: confused Assessment Assessment IMP HYPOKALEMIA-BETTER HYPOTENSION-BETTER HX OF RENAL TX CAN - CKD - CR OF 1.5 LOW MAG AND PO4 HX OF CRYTOCOCCUS HX OF EPILEPSY ENCEPHALOPATHY CVA PLAN IN ICU OFF HER QUOC-I INCREASE HYDRATION ON HYPERALIMENTATION UNSTABLE FOR G TUBE CONT SUPPORTIVE CARE CONT PREDNISONE AND PROGRAF CHANGED PROGRAF TO IV IDEALLY NGT SO WE CAN DO ENTERAL NUTRITION AND CHANGE PROGRAF TO ENTERAL UPDATED FAMILY POSSIBLE SELECT TRANSFER SOON POOR PROGNOSIS WILL FOLLOW [place] RODRIGUEZ MD Feb 06, 2020 10:41
--- NOTE | 2020-02-06 11:50 | PDOC ---
PULMONARY PROGRESS NOTES Subjective transfer to icu with altered mental status. received 0.5 mg IV ativan last night currently responds to commands Vitals Vital Signs Date Time Temp Pulse Resp B/P (MAP) Pulse Ox O2 Delivery O2 Flow Rate FiO2 02/06/20 06:00 89 22 153/59 (90) 98 Room Air 02/06/20 04:00 98.8 98.8 ROS: No Nausea General: No acute distress, Lethargic Lungs: Clear Cardiovascular: S1, S2 Abdomen: Soft, Non-tender Neuro Exam: Alert Extremities: Other Skin: Warm Labs Laboratory Tests Test 02/04/20 12:15 02/04/20 16:02 02/04/20 17:38 02/04/20 18:42 Urine Collection Type Unknown Urine Color Yellow Urine Clarity Cloudy Urine pH 5.5 (<5.0-8.0) Urine Specific [place] 1.020 (1.000-1.030) Urine Protein >=300 mg/dL (NEG-TRACE) Urine Glucose (UA) >=1000 mg/dL (NEG) Urine Ketones (Stick) Negative mg/dL (NEG) Urine Blood Negative (NEG) Urine Nitrite Positive (NEG) Urine Bilirubin Negative (NEG) Urine Urobilinogen Dipstick 0.2 mg/dL (0.2 mg/dL) Urine Leukocyte Esterase Moderate (NEG) Urine RBC 0 /HPF (0-2) Urine WBC Tntc /HPF (0-4) Urine Squamous Epithelial Cells Occ /LPF Urine Bacteria Many /HPF (0-FEW) Glucose (Fingerstick) 505 mg/dL (70-99) 468 mg/dL (70-99) 469 mg/dL (70-99) Test 02/04/20 19:30 02/04/20 20:34 02/04/20 21:05 02/04/20 21:50 Glucose (Fingerstick) 348 mg/dL (70-99) 338 mg/dL (70-99) 299 mg/dL (70-99) Lactic Acid Level 2.0 mmol/L (0.4-2.0) Test 02/04/20 22:45 02/05/20 00:00 02/05/20 01:00 02/05/20 02:05 Glucose (Fingerstick) 218 mg/dL (70-99) 212 mg/dL (70-99) 173 mg/dL (70-99) 141 mg/dL (70-99) Test 02/05/20 03:00 02/05/20 03:11 02/05/20 04:05 02/05/20 05:26 White Blood Count 12.7 x10^3/uL (4.0-11.0) Red Blood Count 4.68 x10^6/uL (3.50-5.40) Hemoglobin 11.9 g/dL (12.0-15.5) Hematocrit 37.5 % (36.0-47.0) Mean Corpuscular Volume 80 fL (79-100) Mean Corpuscular Hemoglobin 25 pg (25-35) Mean Corpuscular Hemoglobin Concent 32 g/dL (31-37) Red Cell Distribution Width 16.4 % (11.5-14.5) Platelet Count 293 x10^3/uL (140-400) Neutrophils (%) (Auto) 83 % (31-73) Lymphocytes (%) (Auto) 5 % (24-48) Monocytes (%) (Auto) 12 % (0-9) Eosinophils (%) (Auto) 0 % (0-3) Basophils (%) (Auto) 0 % (0-3) Neutrophils # (Auto) 10.5 x10^3/uL (1.8-7.7) Lymphocytes # (Auto) 0.6 x10^3/uL (1.0-4.8) Monocytes # (Auto) 1.5 x10^3/uL (0.0-1.1) Eosinophils # (Auto) 0.0 x10^3/uL (0.0-0.7) Basophils # (Auto) 0.0 x10^3/uL (0.0-0.2) Sodium Level 147 mmol/L (136-145) Potassium Level 3.1 mmol/L (3.5-5.1) Chloride Level 113 mmol/L (98-107) Carbon Dioxide Level 21 mmol/L (21-32) Anion Gap 13 (6-14) Blood Urea Nitrogen 46 mg/dL (7-20) Creatinine 1.5 mg/dL (0.6-1.0) Estimated GFR (Cockcroft-Gault) 42.0 Glucose Level 149 mg/dL (70-99) Calcium Level 10.8 mg/dL (8.5-10.1) Phosphorus Level 1.3 mg/dL (2.6-4.7) Magnesium Level 1.7 mg/dL (1.8-2.4) Glucose (Fingerstick) 127 mg/dL (70-99) 119 mg/dL (70-99) 112 mg/dL (70-99) Test 02/05/20 06:32 02/05/20 07:39 02/05/20 08:45 02/05/20 09:43 Glucose (Fingerstick) 114 mg/dL (70-99) 122 mg/dL (70-99) 130 mg/dL (70-99) 132 mg/dL (70-99) Test 02/05/20 10:39 02/05/20 11:49 02/05/20 13:29 02/05/20 14:34 Glucose (Fingerstick) 180 mg/dL (70-99) 162 mg/dL (70-99) 126 mg/dL (70-99) 126 mg/dL (70-99) Test 02/05/20 15:38 02/05/20 22:03 02/06/20 02:15 02/06/20 05:50 Glucose (Fingerstick) 158 mg/dL (70-99) 357 mg/dL (70-99) 393 mg/dL (70-99) White Blood Count 13.6 x10^3/uL (4.0-11.0) Red Blood Count 4.04 x10^6/uL (3.50-5.40) Hemoglobin 10.2 g/dL (12.0-15.5) Hematocrit 32.2 % (36.0-47.0) Mean Corpuscular Volume 80 fL (79-100) Mean Corpuscular Hemoglobin 25 pg (25-35) Mean Corpuscular Hemoglobin Concent 32 g/dL (31-37) Red Cell Distribution Width 16.5 % (11.5-14.5) Platelet Count 268 x10^3/uL (140-400) Neutrophils (%) (Auto) 91 % (31-73) Lymphocytes (%) (Auto) 5 % (24-48) Monocytes (%) (Auto) 4 % (0-9) Eosinophils (%) (Auto) 0 % (0-3) Basophils (%) (Auto) 0 % (0-3) Neutrophils # (Auto) 12.4 x10^3/uL (1.8-7.7) Lymphocytes # (Auto) 0.6 x10^3/uL (1.0-4.8) Monocytes # (Auto) 0.6 x10^3/uL (0.0-1.1) Eosinophils # (Auto) 0.0 x10^3/uL (0.0-0.7) Basophils # (Auto) 0.0 x10^3/uL (0.0-0.2) Sodium Level 143 mmol/L (136-145) Potassium Level 3.7 mmol/L (3.5-5.1) Chloride Level 112 mmol/L (98-107) Carbon Dioxide Level 21 mmol/L (21-32) Anion Gap 10 (6-14) Blood Urea Nitrogen 64 mg/dL (7-20) Creatinine 1.8 mg/dL (0.6-1.0) Estimated GFR (Cockcroft-Gault) 34.1 Glucose Level 343 mg/dL (70-99) Calcium Level 9.2 mg/dL (8.5-10.1) Phosphorus Level 3.1 mg/dL (2.6-4.7) Magnesium Level 2.0 mg/dL (1.8-2.4) Test 02/06/20 05:55 Glucose (Fingerstick) 318 mg/dL (70-99) Laboratory Tests Test 02/05/20 11:49 02/05/20 13:29 02/05/20 14:34 02/05/20 15:38 Glucose (Fingerstick) 162 mg/dL (70-99) 126 mg/dL (70-99) 126 mg/dL (70-99) 158 mg/dL (70-99) Test 02/05/20 22:03 02/06/20 02:15 02/06/20 05:50 02/06/20 05:55 Glucose (Fingerstick) 357 mg/dL (70-99) 393 mg/dL (70-99) 318 mg/dL (70-99) White Blood Count 13.6 x10^3/uL (4.0-11.0) Red Blood Count 4.04 x10^6/uL (3.50-5.40) Hemoglobin 10.2 g/dL (12.0-15.5) Hematocrit 32.2 % (36.0-47.0) Mean Corpuscular Volume 80 fL (79-100) Mean Corpuscular Hemoglobin 25 pg (25-35) Mean Corpuscular Hemoglobin Concent 32 g/dL (31-37) Red Cell Distribution Width 16.5 % (11.5-14.5) Platelet Count 268 x10^3/uL (140-400) Neutrophils (%) (Auto) 91 % (31-73) Lymphocytes (%) (Auto) 5 % (24-48) Monocytes (%) (Auto) 4 % (0-9) Eosinophils (%) (Auto) 0 % (0-3) Basophils (%) (Auto) 0 % (0-3) Neutrophils # (Auto) 12.4 x10^3/uL (1.8-7.7) Lymphocytes # (Auto) 0.6 x10^3/uL (1.0-4.8) Monocytes # (Auto) 0.6 x10^3/uL (0.0-1.1) Eosinophils # (Auto) 0.0 x10^3/uL (0.0-0.7) Basophils # (Auto) 0.0 x10^3/uL (0.0-0.2) Sodium Level 143 mmol/L (136-145) Potassium Level 3.7 mmol/L (3.5-5.1) Chloride Level 112 mmol/L (98-107) Carbon Dioxide Level 21 mmol/L (21-32) Anion Gap 10 (6-14) Blood Urea Nitrogen 64 mg/dL (7-20) Creatinine 1.8 mg/dL (0.6-1.0) Estimated GFR (Cockcroft-Gault) 34.1 Glucose Level 343 mg/dL (70-99) Calcium Level 9.2 mg/dL (8.5-10.1) Phosphorus Level 3.1 mg/dL (2.6-4.7) Magnesium Level 2.0 mg/dL (1.8-2.4) Medications Active Scripts Medications Dose Route/Sig Max Daily Dose Days Date Category Dose Instructions Zyprexa (Olanzapine) 10 Mg Tablet 1 Tab PO QHS 01/24/20 Reported Trazodone Hcl 50 Mg Tablet 1 Tab PO QHS 01/24/20 Reported Seroquel (Quetiapine Fumarate) 25 Mg Tablet 25 Mg PO BID 01/24/20 Reported Humalog (Insulin Lispro) 100 Unit/1 Ml Vial 2 Unit SQ [id number] 01/24/20 Reported Lisinopril 20 Mg Tablet 1 Tab PO DAILY 01/24/20 Reported Acetaminophen 500 Mg Tablet 2 Tab PO PRN Q8HRS PRN 15 09/25/19 Reported Prednisone 1 Mg Tablet 2 Mg PO DAILY 09/25/19 Reported Humalog (Insulin Lispro) 100 Unit/1 Ml Vial 8 Unit SQ [id number] 09/25/19 Reported Humalog (Insulin Lispro) 100 Unit/1 Ml Vial 4 Unit SQ [id number] 09/25/19 Reported Hydralazine Hcl 25 Mg Tablet 1 Tab PO BID 09/25/19 Reported Aspir-Low (Aspirin) 81 Mg Tablet.dr 1 Tab PO DAILY 09/25/19 Reported Diflucan (Fluconazole) 100 Mg Tablet 200 Mg PO DAILY 04/30/16 Rx Prograf (Tacrolimus) 1 Mg Capsule 0.5 Mg PO BID 03/22/16 Reported Levemir (Insulin Detemir) 100 Unit/1 Ml Vial 18 Unit SQ QHS 02/25/16 Reported Hold for FSBS below 90 and call Nephro-Stacey Tablet (Folic Acid/Vitamin B Comp W-C) 0.8 Mg Tablet 1 Tab PO DAILY 02/25/16 Reported Levetiracetam 500 Mg Tablet 500 Mg PO BID 01/17/14 Reported Comments cxr mild CHF Impression . IMPRESSION: 1. The patient with stable lung nodules. Latest ct chest is from October 2019.. She has a 2 cm pleural based nodule in the right upper lobe, which is unchanged since 2018. In addition, she also has nodular opacity in the right lower lobe measuring about 1 cm in size. There is a 2 mm nodular opacity in the inferior aspect of the right lower lobe, which is unchanged. All these nodules have been stable since her CAT scan from 2019 as well as a CAT scan of the chest from 12/19/2017. Likely, this is a benign etiology. 2. Encephalopathy. worse . ct head and MRI neg for acute findings 3. prior history of seizures and metabolic encephalopathy 4. Azotemia 5. Avoid benzo will f/u Plan . RECOMMENDATIONS: 1. From a pulmonary standpoint when comparisons were made to the nodules from 2018, they all have been stable. The last CT chest was from 10/2019 and oldest one is from 11/2017. These are likely benign nodules and have been stable for 2 years. no need for any further followup on CT chest. 2. Follow Neurology recommendation. mri no acute abnl, old cva 3. Follow Nephrology recommendation. 4. Minimize benzodiazepines. avoid oversedation 5. covid19 neg Discussed with RN. JOAQUIM POLANCO MD Feb 06, 2020 11:50
[2020-02-06] MEDS: TPN PER PHARMACY MC PRN (12:35)
--- NOTE | 2020-02-06 12:36 | NUR ---
Pharmacy TPN Dosing Note S: DIANA WATERS is a 64 year old F Currently receiving Central Continuous TPN started 02/03/20 B:Pertinent PMH: failed PEG tube insertion Height: 5 feet, 6 inches Weight: 68.8 kg Current diet: NPO LABS: Sodium: 147 Potassium: 3.1 Chloride: 113 Calcium: 10.8 Corrected Calcium: 12.16 Magnesium: 1.7 CO2: 21 SCr: 1.8 Glucose: 162 Albumin: 2.3 AST: 28 ALT: 23 TPN FORMULA: TPN TYPE: Central Continuous AMINO ACIDS: 60 gm DEXTROSE: 120 gm LIPIDS: 20 gm SODIUM ACETATE: 40 mEq SODIUM PHOSPHATE: 20 mmol POTASSIUM ACETATE: 30 mEq MAGNESIUM: 10 mEq INSULIN: 50 units MULTIPLE VITAMIN: 10 ml TRACE ELEMENTS: 1 ml(s) TPN PLAN: Insulin increased to 50 units per MD order R: Continue TPN Will monitor electrolytes, glucose, and tolerance to TPN. Ada Freeman RPH, 02/06/20 [id number]
[2020-02-06] MEDS: levETIRAcetam 500 MG in IV DEXTROSE 5% 100ML 100 ML IV SCH ×2 (12:44→20:43)
[2020-02-06] MEDS: IV NORMAL SALINE 1000ML BAG 1,000 ML IV SCH ×2 (12:45→15:25)
[2020-02-06] MEDS ORDERED: cloNIDine TTS-2 1 PATCH PATCH TD SCH (13:00)
--- NOTE | 2020-02-06 13:19 | PDOC ---
PROGRESS NOTES Assessment Problems Medical Problems: (1) Cough Status: Acute (2) Left-sided weakness Status: Acute Patient improved from yesterday, Dr. Stanford uncovered the fact she received some Ativan the night before last Metabolic encephalopathy No acute stroke. Dementia and multiple psychiatric diagnoses. 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 Diabetic peripheral neuropathy Ruled out COVID Poor oral intake, PEG unsuccessful, awaiting G-tube Note LP done, negative, elevated protein in isolation is nonspecific, may be seen, for instance, in diabetes Medical issues: status-post renal transplant, chronic allograft nephropathy, CKD stage 3, istory of disseminated Cryptococcus, coronary artery disease, anemia, lung nodules Plan DNR Levetiracetam Return to detention or LTAC when medically stable Doesn't need EEG Subjective none Objective Vital Signs Date Time Temp Pulse Resp B/P (MAP) Pulse Ox O2 Delivery O2 Flow Rate FiO2 02/06/20 12:00 Room Air 02/06/20 12:00 98.2 80 23 177/76 (109) 98 98.2 Intake and Output 02/06/20 07:00 Intake Total 1332 ml Output Total 765 ml Balance 567 ml Intake Oral 0 ml IV Total 1332 ml Output Urine Total 765 ml PHYSICAL EXAM More alert, tells me her name, follows some commands PERRL. EOMI. CN: no focal findings. Muscle tone: normal. Muscle strength: 3/5 DTR: 1+ Plantar reflex: flexor Gait: not examined in bed. Sensory exam: stocking loss. Cerebellar: Not cooperative Review of Relevant I have reviewed the following items warner (where applicable) has been applied. Labs Laboratory Tests Test 02/04/20 16:02 02/04/20 17:38 02/04/20 18:42 02/04/20 19:30 Glucose (Fingerstick) 505 mg/dL (70-99) 468 mg/dL (70-99) 469 mg/dL (70-99) 348 mg/dL (70-99) Test 02/04/20 20:34 02/04/20 21:05 02/04/20 21:50 02/04/20 22:45 Glucose (Fingerstick) 338 mg/dL (70-99) 299 mg/dL (70-99) 218 mg/dL (70-99) Lactic Acid Level 2.0 mmol/L (0.4-2.0) Test 02/05/20 00:00 02/05/20 01:00 02/05/20 02:05 02/05/20 03:00 Glucose (Fingerstick) 212 mg/dL (70-99) 173 mg/dL (70-99) 141 mg/dL (70-99) White Blood Count 12.7 x10^3/uL (4.0-11.0) Red Blood Count 4.68 x10^6/uL (3.50-5.40) Hemoglobin 11.9 g/dL (12.0-15.5) Hematocrit 37.5 % (36.0-47.0) Mean Corpuscular Volume 80 fL (79-100) Mean Corpuscular Hemoglobin 25 pg (25-35) Mean Corpuscular Hemoglobin Concent 32 g/dL (31-37) Red Cell Distribution Width 16.4 % (11.5-14.5) Platelet Count 293 x10^3/uL (140-400) Neutrophils (%) (Auto) 83 % (31-73) Lymphocytes (%) (Auto) 5 % (24-48) Monocytes (%) (Auto) 12 % (0-9) Eosinophils (%) (Auto) 0 % (0-3) Basophils (%) (Auto) 0 % (0-3) Neutrophils # (Auto) 10.5 x10^3/uL (1.8-7.7) Lymphocytes # (Auto) 0.6 x10^3/uL (1.0-4.8) Monocytes # (Auto) 1.5 x10^3/uL (0.0-1.1) Eosinophils # (Auto) 0.0 x10^3/uL (0.0-0.7) Basophils # (Auto) 0.0 x10^3/uL (0.0-0.2) Sodium Level 147 mmol/L (136-145) Potassium Level 3.1 mmol/L (3.5-5.1) Chloride Level 113 mmol/L (98-107) Carbon Dioxide Level 21 mmol/L (21-32) Anion Gap 13 (6-14) Blood Urea Nitrogen 46 mg/dL (7-20) Creatinine 1.5 mg/dL (0.6-1.0) Estimated GFR (Cockcroft-Gault) 42.0 Glucose Level 149 mg/dL (70-99) Calcium Level 10.8 mg/dL (8.5-10.1) Phosphorus Level 1.3 mg/dL (2.6-4.7) Magnesium Level 1.7 mg/dL (1.8-2.4) Test 02/05/20 03:11 02/05/20 04:05 02/05/20 05:26 02/05/20 06:32 Glucose (Fingerstick) 127 mg/dL (70-99) 119 mg/dL (70-99) 112 mg/dL (70-99) 114 mg/dL (70-99) Test 02/05/20 07:39 02/05/20 08:45 02/05/20 09:43 02/05/20 10:39 Glucose (Fingerstick) 122 mg/dL (70-99) 130 mg/dL (70-99) 132 mg/dL (70-99) 180 mg/dL (70-99) Test 02/05/20 11:49 02/05/20 13:29 02/05/20 14:34 02/05/20 15:38 Glucose (Fingerstick) 162 mg/dL (70-99) 126 mg/dL (70-99) 126 mg/dL (70-99) 158 mg/dL (70-99) Test 02/05/20 22:03 02/06/20 02:15 02/06/20 05:50 02/06/20 05:55 Glucose (Fingerstick) 357 mg/dL (70-99) 393 mg/dL (70-99) 318 mg/dL (70-99) White Blood Count 13.6 x10^3/uL (4.0-11.0) Red Blood Count 4.04 x10^6/uL (3.50-5.40) Hemoglobin 10.2 g/dL (12.0-15.5) Hematocrit 32.2 % (36.0-47.0) Mean Corpuscular Volume 80 fL (79-100) Mean Corpuscular Hemoglobin 25 pg (25-35) Mean Corpuscular Hemoglobin Concent 32 g/dL (31-37) Red Cell Distribution Width 16.5 % (11.5-14.5) Platelet Count 268 x10^3/uL (140-400) Neutrophils (%) (Auto) 91 % (31-73) Lymphocytes (%) (Auto) 5 % (24-48) Monocytes (%) (Auto) 4 % (0-9) Eosinophils (%) (Auto) 0 % (0-3) Basophils (%) (Auto) 0 % (0-3) Neutrophils # (Auto) 12.4 x10^3/uL (1.8-7.7) Lymphocytes # (Auto) 0.6 x10^3/uL (1.0-4.8) Monocytes # (Auto) 0.6 x10^3/uL (0.0-1.1) Eosinophils # (Auto) 0.0 x10^3/uL (0.0-0.7) Basophils # (Auto) 0.0 x10^3/uL (0.0-0.2) Sodium Level 143 mmol/L (136-145) Potassium Level 3.7 mmol/L (3.5-5.1) Chloride Level 112 mmol/L (98-107) Carbon Dioxide Level 21 mmol/L (21-32) Anion Gap 10 (6-14) Blood Urea Nitrogen 64 mg/dL (7-20) Creatinine 1.8 mg/dL (0.6-1.0) Estimated GFR (Cockcroft-Gault) 34.1 Glucose Level 343 mg/dL (70-99) Calcium Level 9.2 mg/dL (8.5-10.1) Phosphorus Level 3.1 mg/dL (2.6-4.7) Magnesium Level 2.0 mg/dL (1.8-2.4) Test 02/06/20 12:51 Glucose (Fingerstick) 201 mg/dL (70-99) Laboratory Tests Test 02/05/20 13:29 02/05/20 14:34 02/05/20 15:38 02/05/20 22:03 Glucose (Fingerstick) 126 mg/dL (70-99) 126 mg/dL (70-99) 158 mg/dL (70-99) 357 mg/dL (70-99) Test 02/06/20 02:15 02/06/20 05:50 02/06/20 05:55 02/06/20 12:51 Glucose (Fingerstick) 393 mg/dL (70-99) 318 mg/dL (70-99) 201 mg/dL (70-99) White Blood Count 13.6 x10^3/uL (4.0-11.0) Red Blood Count 4.04 x10^6/uL (3.50-5.40) Hemoglobin 10.2 g/dL (12.0-15.5) Hematocrit 32.2 % (36.0-47.0) Mean Corpuscular Volume 80 fL (79-100) Mean Corpuscular Hemoglobin 25 pg (25-35) Mean Corpuscular Hemoglobin Concent 32 g/dL (31-37) Red Cell Distribution Width 16.5 % (11.5-14.5) Platelet Count 268 x10^3/uL (140-400) Neutrophils (%) (Auto) 91 % (31-73) Lymphocytes (%) (Auto) 5 % (24-48) Monocytes (%) (Auto) 4 % (0-9) Eosinophils (%) (Auto) 0 % (0-3) Basophils (%) (Auto) 0 % (0-3) Neutrophils # (Auto) 12.4 x10^3/uL (1.8-7.7) Lymphocytes # (Auto) 0.6 x10^3/uL (1.0-4.8) Monocytes # (Auto) 0.6 x10^3/uL (0.0-1.1) Eosinophils # (Auto) 0.0 x10^3/uL (0.0-0.7) Basophils # (Auto) 0.0 x10^3/uL (0.0-0.2) Sodium Level 143 mmol/L (136-145) Potassium Level 3.7 mmol/L (3.5-5.1) Chloride Level 112 mmol/L (98-107) Carbon Dioxide Level 21 mmol/L (21-32) Anion Gap 10 (6-14) Blood Urea Nitrogen 64 mg/dL (7-20) Creatinine 1.8 mg/dL (0.6-1.0) Estimated GFR (Cockcroft-Gault) 34.1 Glucose Level 343 mg/dL (70-99) Calcium Level 9.2 mg/dL (8.5-10.1) Phosphorus Level 3.1 mg/dL (2.6-4.7) Magnesium Level 2.0 mg/dL (1.8-2.4) Microbiology 02/05/20 Blood Culture - Preliminary, Resulted NO GROWTH AFTER 1 DAY 02/04/20 Urine Culture - Final, Complete 02/04/20 Antimicrobic Susceptibility - Final, Complete Medications Current Medications Clonidine HCl (Catapres) 0.2 mg 1X ONCE PO Last administered on 01/23/20at 17:38; Start 01/23/20 at 17:30; Stop 01/23/20 at 17:31; Status DC Ondansetron HCl (Zofran) 4 mg PRN Q8HRS PRN IV NAUSEA/VOMITING; Start 01/23/20 at 17:45; Stop 01/24/20 at 17:44; Status DC Morphine Sulfate (Morphine Sulfate) 2 mg PRN Q2HR PRN IV PAIN; Start 01/23/20 at 17:45; Stop 01/24/20 at 17:44; Status DC Dextrose/Sodium Chloride 1,000 ml @ 100 mls/hr 1X ONCE IV Last administered on 01/23/20at 19:24; Start 01/23/20 at 17:45; Stop 01/24/20 at 03:44; Status DC Pharmacy Consult (C.diff Med Screen By Rx) 1 each 1X ONCE MC Last administered on 01/24/20at 08:26; Start 01/24/20 at 09:00; Stop 01/24/20 at 09:01; Status DC Labetalol HCl (Normodyne Iv Push) 20 mg PRN Q4HRS PRN IVP HYPERTENSION, 2nd choice Last administered on 02/04/20at 23:44; Start 01/24/20 at 04:15 Clonidine HCl (Catapres Tts-3) 1 patch WEEKLY TD ; Start 01/24/20 at 09:00; Stop 01/24/20 at 05:21; Status DC Piperacillin Sod/ Tazobactam Sod (Zosyn Per Pharmacy) 1 each PRN DAILY PRN [facility] SEE COMMENTS; Start 01/24/20 at 04:30; Stop 01/24/20 at 09:32; Status DC Piperacillin Sod/ Tazobactam Sod 3.375 gm/Sodium Chloride 50 ml @ 100 mls/hr Q6H IV Last administered on 01/24/20at 05:06; Start 01/24/20 at 05:00; Stop 01/24/20 at 09:30; Status DC Clonidine HCl (Catapres Tts-3) 1 patch WEEKLY TD Last administered on 01/31/20at 08:22; Start 01/24/20 at 16:00; Stop 02/04/20 at 09:59; Status DC Clonidine HCl (Catapres Tts-3) 1 patch 1X ONCE TD ; Start 01/24/20 at 05:30; Stop 01/24/20 at 05:31; Status DC Levetiracetam (Keppra) 500 mg BID PO ; Start 01/24/20 at 09:00; Status Cancel Acetaminophen (Tylenol) 650 mg PRN Q6HRS PRN PO TEMP > 100.4F; Start 01/24/20 at 08:30; Stop 01/26/20 at 12:00; Status DC Acetaminophen (Tylenol Supp) 650 mg PRN Q4HRS PRN [place] TEMP > 100.4F Last administered on 02/04/20at 09:45; Start 01/24/20 at 08:30 Aspirin (Ecotrin) 325 mg DAILYWBKFT PO Last administered on 02/03/20at 10:49; Start 01/25/20 at 08:00 Aspirin (Aspirin Rectal Supp) 300 mg PRN DAILY PRN [place] IF UNABLE TO TAKE PO Last administered on 02/04/20at 09:56; Start 01/24/20 at 08:30 Lorazepam (Ativan Inj) 2 mg PRN Q4HRS PRN IVP ANXIETY / AGITATION Last administered on 01/24/20at 10:14; Start 01/24/20 at 10:00; Stop 01/24/20 at 16:35; Status DC Acetaminophen (Tylenol) 1,000 mg PRN Q8HRS PRN PO MILD PAIN OR FEVER; Start 01/24/20 at 10:15 Aspirin (Ecotrin) 81 mg DAILY PO ; Start 01/25/20 at 09:00; Status UNV Vitamin B Complex/ Vitamin C (Vicki-Stacey) 1 tab DAILY PO Last administered on 02/03/20 10:48; Start 01/25/20 at 09:00 Hydralazine HCl (Apresoline) 25 mg BID PO Last administered on 02/03/20at 10:49; Start 01/24/20 at 21:00 Insulin Human Lispro (HumaLOG) 2 units DAILYWLUN SQ Last administered on 02/04/20at 14:43; Start 01/24/20 at 12:00; Stop 02/04/20 at 16:11; Status DC Insulin Human Lispro (HumaLOG) 4 units DAILYWBKFT SQ Last administered on 02/02/20at 09:18; Start 01/25/20 at 08:00; Stop 02/04/20 at 16:11; Status DC Insulin Human Lispro (HumaLOG) 8 units DAILYWSUP SQ Last administered on 02/03/20at 18:17; Start 01/24/20 at 17:00; Stop 02/04/20 at 16:11; Status DC Lisinopril (Prinivil) 20 mg DAILY PO Last administered on 02/01/20at 10:37; Start 01/24/20 at 12:00; Stop 02/02/20 at 11:51; Status DC Prednisone (Prednisone) 2 mg DAILY PO Last administered on 01/26/20at 10:15; Start 01/24/20 at 12:00; Stop 01/26/20 at 12:24; Status DC Quetiapine Fumarate (SEROquel) 25 mg BID PO Last administered on 01/26/20at 21:14; Start 01/24/20 at 12:00; Stop 01/27/20 at 09:52; Status DC Tacrolimus (Prograf) 0.5 mg BID PO Last administered on 02/03/20at 10:49; Start 01/24/20 at 12:00; Stop 02/05/20 at 11:57; Status DC Trazodone HCl (Desyrel) 50 mg QHS PO Last administered on 01/26/20at 21:14; Start 01/24/20 at 21:00; Stop 01/27/20 at 09:52; Status DC Fluconazole (Diflucan) 200 mg DAILY PO Last administered on 02/03/20at 10:49; Start 01/24/20 at 11:00; Stop 02/04/20 at 16:17; Status DC Insulin Glargine (Lantus Syringe) 18 unit QHS SQ ; Start 01/24/20 at 21:00; Stop 01/24/20 at 20:59; Status DC Olanzapine (ZyPREXA) 10 mg QHS PO Last administered on 01/26/20 21:14; Start 01/24/20 at 21:00; Stop 01/27/20 at 09:52; Status DC Enoxaparin Sodium (Lovenox 40mg Syringe) 40 mg Q24H SQ Last administered on 01/26/20at 10:12; Start 01/24/20 at 11:00; Stop 01/26/20 at 12:24; Status DC Amino Acids/ Glycerin/ Electrolytes 1,000 ml @ 75 mls/hr [id number] IV Last administered on 01/29/20at 15:50; Start 01/24/20 at 13:45; Stop 01/30/20 at 10:00; Status DC Levetiracetam 500 mg/Dextrose 105 ml @ 420 mls/hr Q12HR IV Last administered on 01/26/20at 21:14; Start 01/24/20 at 13:45; Stop 01/27/20 at 08:47; Status DC Non-Formulary Medication 0.5 ea BID NG Last administered on 01/24/20at 21:12; Start 01/24/20 at 15:00; Stop 01/27/20 at 04:41; Status DC Lorazepam (Ativan Inj) 0.5 mg PRN Q4HRS PRN IVP ANXIETY / AGITATION Last administered on 02/05/20at 23:59; Start 01/24/20 at 16:45 Insulin Glargine (Lantus Syringe) 18 unit QHS SQ Last administered on 02/03/20at 20:15; Start 01/24/20 at 21:00; Stop 02/04/20 at 16:11; Status DC Dextrose (Dextrose 50%-Water Syringe) 12.5 gm PRN Q15MIN PRN IV SEE COMMENTS; Start 01/24/20 at 21:45; Stop 02/04/20 at 11:34; Status DC Enalaprilat (Vasotec Inj) 1.25 mg PRN Q6HRS PRN IVP HYPERTENSION, 1st choice Last administered on 02/05/20at 09:55; Start 01/25/20 at 12:00 Prednisone (Prednisone) 5 mg DAILY PO Last administered on 02/03/20at 10:48; S tart 01/27/20 at 09:00; Stop 02/05/20 at 09:29; Status DC Levetiracetam (Keppra) 500 mg BID PO Last administered on 02/03/20at 10:49; Start 01/27/20 at 09:00; Stop 02/04/20 at 16:15; Status DC Tacrolimus (Prograf Oral Susp) 0.5 mg STK-MED ONCE .ROUTE ; Start 01/24/20 at 21:00; Stop 01/27/20 at 14:30; Status DC Tacrolimus (Prograf Oral Susp) 0.5 mg STK-MED ONCE .ROUTE ; Start 01/24/20 at 21:00; Stop 01/27/20 at 14:30; Status DC Cefazolin Sodium (Ancef) 1 gm 1X ONCE IVP ; Start 01/31/20 at 12:00; Stop 01/31/20 at 12:01; Status DC Ringer's Solution 1,000 ml @ 50 mls/hr Q20H IV ; Start 01/31/20 at 07:00; Stop 01/31/20 at 18:59; Status DC Ringer's Solution 1,000 ml @ 75 mls/hr 1X ONCE IV ; Start 01/31/20 at 08:15; Stop 01/31/20 at 21:34; Status DC Hydralazine HCl (Apresoline Inj) 10 mg PRN Q4HRS PRN IVP ELEVATED BP, 3RD CHOICE Last administered on 01/31/20at 10:55; Start 01/31/20 at 09:45 Propofol (Diprivan) 200 mg STK-MED ONCE IV ; Start 01/31/20 at 13:08; Stop 01/31/20 at 13:09; Status DC Sodium Chloride 1,000 ml @ 100 mls/hr Q10H IV Last administered on 02/06/20at 12:45; Start 02/02/20 at 11:00 Info (Tpn Per Pharmacy) 1 each PRN DAILY PRN MC SEE COMMENTS Last administered on 02/06/20at 12:35; Start 02/03/20 at 10:00 Piperacillin Sod/ Tazobactam Sod 2.25 gm/Sodium Chloride 50 ml @ 100 mls/hr Q6HRS IV Last administered on 02/04/20at 05:57; Start 02/03/20 at 12:00; Stop 02/04/20 at 10:19; Status DC Insulin Human Lispro (HumaLOG) 10 units 1X ONCE SQ Last administered on 02/03/20at 11:10; Start 02/03/20 at 10:30; Stop 02/03/20 at 10:31; Status DC Calcium Gluconate (Calcium Gluconate) 1,000 mg 1X ONCE IVP Last administered on 02/03/20at 10:49; Start 02/03/20 at 10:30; Stop 02/03/20 at 10:31; Status DC Linezolid/Dextrose 300 ml @ 300 mls/hr Q12HR IV Last administered on 02/04/20at 09:41; Start 02/03/20 at 11:00; Stop 02/04/20 at 10:18; Status DC Dextrose (Dextrose 50%-Water Syringe) 25 gm 1X ONCE IV Last administered on 02/03/20at 10:49; Start 02/03/20 at 10:45; Stop 02/03/20 at 10:47; Status DC Lidocaine/ Epinephrine (LIDOCAINE 1%-EPI 1:100,000 Multi-Dose) 20 ml STK-MED ONCE .ROUTE ; Start 02/03/20 at 14:52; Stop 02/03/20 at 14:52; Status DC Sodium Chloride 90 meq/Magnesium Sulfate 5 meq/ Multivitamins 10 ml/Chromium/ Copper/Manganese/ Seleni/Zn 1 ml/ Insulin Human Regular 10 unit/ Total Parenteral Nutrition/Amino Acids/Dextrose/ Fat Emulsion Intravenous 1,512 ml @ 63 mls/hr TPN CONT IV Last administered on 02/03/20at 21:49; Start 02/03/20 at 22:00; Stop 02/04/20 at 21:59; Status DC Lidocaine/ Epinephrine (LIDOCAINE 1%-EPI 1:100,000 Multi-Dose) 20 ml 1X ONCE INJ Last administered on 02/03/20at 15:35; Start 02/03/20 at 15:15; Stop 02/03/20 at 15:16; Status DC Heparin Sodium (Porcine) (Hep Lock Adult) 500 unit STK-MED ONCE IVP ; Start 02/03/20 at 15:39; Stop 02/03/20 at 15:39; Status DC Heparin Sodium (Porcine) (Hep Lock Adult) 500 unit 1X ONCE IVP Last administered on 02/03/20at 15:45; Start 02/03/20 at 15:45; Stop 02/03/20 at 15:49; Status DC Insulin Human Lispro (HumaLOG) 15 units 1X ONCE SQ Last administered on 02/04/20at 08:40; Start 02/04/20 at 12:00; Stop 02/04/20 at 12:01; Status DC Insulin Human Lispro (HumaLOG) 0-9 UNITS TIDWMEALS SQ Last administered on 02/04/20at 14:44; Start 02/04/20 at 12:00; Stop 02/04/20 at 16:32; Status DC Dextrose (Dextrose 50%-Water Syringe) 12.5 gm PRN Q15MIN PRN IV SEE COMMENTS; Start 02/04/20 at 08:30 Clonidine HCl (Catapres Tts-1) 1 patch WEEKLY TD Last administered on 02/04/20at 11:36; Start 02/04/20 at 10:00; Stop 02/06/20 at 09:53; Status DC Heparin Sodium (Porcine) (Heparin Sodium) 5,000 unit Q12HR SQ Last administered on 02/06/20at 09:15; Start 02/04/20 at 10:15 Piperacillin Sod/ Tazobactam Sod 2.25 gm/Sodium Chloride 50 ml @ 100 mls/hr Q6HRS IV Last administered on 02/06/20at 12:44; Start 02/04/20 at 12:00 Sodium Chloride 20 meq/Sodium Acetate 70 meq/ Sodium Phosphate 13.6 mmol/ Magnesium Sulfate 5 meq/ Multivitamins 10 ml/Chromium/ Copper/Manganese/ Seleni/Zn 1 ml/ Insulin Human Regular 30 unit/ Total Parenteral Nutrition/Amino Acids/Dextrose/ Fat Emulsion Intravenous 1,512 ml @ 63 mls/hr TPN CONT IV Last administered on 02/04/20at 21:28; Start 02/04/20 at 22:00; Stop 02/05/20 at 21:59; Status DC Insulin Human Regular 100 unit/ Sodium Chloride 101 ml @ 0 mls/hr CONT PRN IV SEE I/O RECORD Last administered on 02/04/20at 21:30; Start 02/04/20 at 16:15; Stop 02/05/20 at 16:11; Status DC Levetiracetam 500 mg/Dextrose 105 ml @ 420 mls/hr Q12HR IV Last administered on 02/06/20at 12:44; Start 02/04/20 at 21:00 Fluconazole/ Sodium Chloride 100 ml @ 100 mls/hr Q24H IV Last administered on 02/05/20at 17:31; Start 02/04/20 at 17:00 Methylprednisolone Sodium Succinate (SOLU-Medrol 40MG VIAL) 40 mg Q12HR IV Last administered on 02/06/20at 09:08; Start 02/05/20 at 09:30; Stop 02/06/20 at 09:53; Status DC Nicardipine HCl 50 mg/Sodium Chloride 250 ml @ 25 mls/hr CONT PRN IV SEE I/O RECORD Last administered on 02/05/20at 22:06; Start 02/05/20 at 10:45 Magnesium Sulfate 50 ml @ 25 mls/hr 1X ONCE IV Last administered on 02/05/20at 12:54; Start 02/05/20 at 12:00; Stop 02/05/20 at 13:59; Status DC Potassium Phosphate 10 mmol/ Sodium Chloride 103.3333 ml @ 51.667 m... Q2H IV Last administered on 02/05/20at 15:41; Start 02/05/20 at 12:00; Stop 02/05/20 at 15:59; Status DC Non-Formulary Medication 1 ea/ Sodium Chloride 50 ml @ 50 mls/hr Q12HR IV Last administered on 02/06/20at 09:05; Start 02/05/20 at 21:00; Stop 02/06/20 at 10:32; Status DC Sodium Acetate 40 meq/Potassium Phosphate 20 mmol/ Magnesium Sulfate 10 meq/ Multivitamins 10 ml/Chromium/ Copper/Manganese/ Seleni/Zn 1 ml/ Insulin Human Regular 30 unit/ Potassium Acetate 30 meq/Total Parenteral Nutrition/Amino Acids/Dextrose/ Fat Emulsion Intravenous 1,512 ml @ 63 mls/hr TPN CONT IV Last administered on 02/05/20at 23:04; Start 02/05/20 at 22:00; Stop 02/06/20 at 21:59 Insulin Glargine (Lantus Syringe) 18 unit QHS SQ Last administered on 02/05/20at 23:01; Start 02/05/20 at 21:00 Insulin Human Lispro (HumaLOG) 0-9 UNITS Q4HRS SQ Last administered on 02/06/20at 12:54; Start 02/05/20 at 16:00 Clonidine HCl (Catapres Tts-1) 2 patch Tu TD Last administered on 02/06/20at 12:45; Start 02/06/20 at 09:45; Stop 02/06/20 at 12:47; Status DC Methylprednisolone Sodium Succinate (SOLU-Medrol 40MG VIAL) 40 mg DAILY IV ; Start 02/07/20 at 09:00 Tacrolimus 0.5 mg/ Sodium Chloride 50.1 ml @ 50.1 mls/hr Q12HR IV ; Start 02/06/20 at 21:00 Tacrolimus (Prograf Inj) 5 mg STK-MED ONCE IV ; Start 02/05/20 at 23:30; Stop 02/06/20 at 10:33; Status DC Tacrolimus (Prograf Inj) 5 mg STK-MED ONCE IV ; Start 02/06/20 at 09:00; Stop 02/06/20 at 10:34; Status DC Sodium Acetate 40 meq/Potassium Acetate 30 meq/ Potassium Phosphate 20 mmol/ Magnesium Sulfate 10 meq/ Multivitamins 10 ml/Chromium/ Copper/Manganese/ Seleni/Zn 1 ml/ Insulin Human Regular 50 unit/ Total Parenteral Nutrition/Amino Acids/Dextrose/ Fat Emulsion Intravenous 1,512 ml @ 63 mls/hr TPN CONT IV ; Start 02/06/20 at 22:00; Stop 02/07/20 at 21:59 Clonidine HCl (Catapres Tts-2) 1 patch WEEKLY TD Last administered on 02/06/20at 12:58; Start 02/06/20 at 13:00 Active Scripts Active Diflucan (Fluconazole) 100 Mg Tablet 200 Mg PO DAILY Reported Zyprexa (Olanzapine) 10 Mg Tablet 1 Tab PO QHS Trazodone Hcl 50 Mg Tablet 1 Tab PO QHS Seroquel (Quetiapine Fumarate) 25 Mg Tablet 25 Mg PO BID Humalog (Insulin Lispro) 100 Unit/1 Ml Vial 2 Unit SQ DAILYBFRLUN Lisinopril 20 Mg Tablet 1 Tab PO DAILY Acetaminophen 500 Mg Tablet 2 Tab PO PRN Q8HRS PRN 15 Days Prednisone 1 Mg Tablet 2 Mg PO DAILY Humalog (Insulin Lispro) 100 Unit/1 Ml Vial 8 Unit SQ DAILYBFRSUP Humalog (Insulin Lispro) 100 Unit/1 Ml Vial 4 Unit SQ DAILYWBKFT Hydralazine Hcl 25 Mg Tablet 1 Tab PO BID Aspir-Low (Aspirin) 81 Mg Tablet. 1 Tab PO DAILY Prograf (Tacrolimus) 1 Mg Capsule 0.5 Mg PO BID Levemir (Insulin Detemir) 100 Unit/1 Ml Vial 18 Unit SQ QHS Hold for FSBS below 90 and call Nephro-Stacey Tablet (Folic Acid/Vitamin B Comp W-C) 0.8 Mg Tablet 1 Tab PO DAILY Levetiracetam 500 Mg Tablet 500 Mg PO BID Vitals/I & O Vital Sign - Last 24 Hours 02/05/20 02/05/20 02/05/20 02/05/20 14:00 15:00 16:00 17:00 Temp 98.4 98.4 Pulse 93 80 94 91 Resp B/P (MAP) 169/68 (101) 133/51 (78) 175/71 (105) 168/61 (96) Pulse Ox 97 97 99 98 O2 Delivery Room Air Room Air Room Air Room Air 02/05/20 02/05/20 02/05/20 02/05/20 18:00 19:00 20:00 20:00 Temp 98.6 98.6 Pulse 81 76 80 Resp B/P (MAP) 110/40 (63) 153/54 (87) 120/43 (68) Pulse Ox 95 97 96 O2 Delivery Room Air Room Air Room Air Room Air 02/05/20 02/05/20 02/05/20 02/06/20 21:00 22:00 23:00 00:01 Pulse 79 85 92 Resp B/P (MAP) 132/47 (75) 160/58 (92) 154/64 (94) Pulse Ox 97 99 96 O2 Delivery Room Air Room Air Room Air Room Air 02/06/20 02/06/20 02/06/20 02/06/20 00:01 01:00 02:00 03:00 Temp 98.7 98.7 Pulse 90 78 79 80 Resp 22 B/P (MAP) 140/53 (82) 147/58 (87) 160/60 (93) 153/51 (85) Pulse Ox 96 98 98 98 O2 Delivery Room Air Room Air Room Air Room Air 02/06/20 02/06/20 02/06/20 02/06/20 04:00 04:00 05:00 06:00 Temp 98.8 98.8 Pulse 72 72 89 Resp 22 22 22 B/P (MAP) 155/51 (85) 150/60 (90) 153/59 (90) Pulse Ox 98 98 98 O2 Delivery Room Air Room Air Room Air Room Air 02/06/20 02/06/20 02/06/20 02/06/20 07:00 08:00 08:00 09:00 Pulse 78 78 78 Resp 23 24 23 B/P (MAP) 166/70 (102) 161/68 (99) 165/71 (102) Pulse Ox 98 98 98 O2 Delivery Room Air Room Air Room Air Room Air 02/06/20 02/06/20 02/06/20 02/06/20 10:00 11:00 12:00 12:00 Temp 98.2 98.2 Pulse 76 78 80 Resp 24 23 B/P (MAP) 169/72 (104) 178/74 (108) 177/76 (109) Pulse Ox 98 99 98 O2 Delivery Room Air Room Air Room Air Room Air Intake and Output 02/05/20 02/05/20 02/06/20 15:00 23:00 07:00 Intake Total 153 ml 1179 ml Output Total 490 ml 120 ml 155 ml Balance -337 ml 1059 ml -155 ml Justicifation of Admission Dx: Justifications for Admission: Justification of Admission Dx: Yes Comminuty Aquired Pneumonia: Immunocomprimised Pt Sepsis: Altered Mental Status Altered Mental Status: Altered Mental Status ISELA WASHINGTON MD Feb 06, 2020 13:19
--- NOTE | 2020-02-06 13:20 | NUR ---
SS following along with media planner. SS received notification for screen at [facility], ; fax [phone]. material planner sent referral to [facility] and pt is accepted at [facility]. material planner notified of notification. SS will continue to follow along with media planner as needed.
--- NOTE | 2020-02-06 14:33 | PDOC ---
SURGICAL PROGRESS NOTE Subjective in ICU, AMS lethargic Vital Signs Vital Signs Date Time Temp Pulse Resp B/P (MAP) Pulse Ox O2 Delivery O2 Flow Rate FiO2 02/06/20 13:00 70 19 181/71 (107) 100 Room Air 02/06/20 12:00 98.2 98.2 I&O Intake and Output 02/06/20 07:00 Intake Total 1332 ml Output Total 765 ml Balance 567 ml Intake Oral 0 ml IV Total 1332 ml Output Urine Total 765 ml General: Other (does not open eyes on exam) Abdomen: Soft Labs Laboratory Tests Test 02/04/20 16:02 02/04/20 17:38 02/04/20 18:42 02/04/20 19:30 Glucose (Fingerstick) 505 mg/dL (70-99) 468 mg/dL (70-99) 469 mg/dL (70-99) 348 mg/dL (70-99) Test 02/04/20 20:34 02/04/20 21:05 02/04/20 21:50 02/04/20 22:45 Glucose (Fingerstick) 338 mg/dL (70-99) 299 mg/dL (70-99) 218 mg/dL (70-99) Lactic Acid Level 2.0 mmol/L (0.4-2.0) Test 02/05/20 00:00 02/05/20 01:00 02/05/20 02:05 02/05/20 03:00 Glucose (Fingerstick) 212 mg/dL (70-99) 173 mg/dL (70-99) 141 mg/dL (70-99) White Blood Count 12.7 x10^3/uL (4.0-11.0) Red Blood Count 4.68 x10^6/uL (3.50-5.40) Hemoglobin 11.9 g/dL (12.0-15.5) Hematocrit 37.5 % (36.0-47.0) Mean Corpuscular Volume 80 fL (79-100) Mean Corpuscular Hemoglobin 25 pg (25-35) Mean Corpuscular Hemoglobin Concent 32 g/dL (31-37) Red Cell Distribution Width 16.4 % (11.5-14.5) Platelet Count 293 x10^3/uL (140-400) Neutrophils (%) (Auto) 83 % (31-73) Lymphocytes (%) (Auto) 5 % (24-48) Monocytes (%) (Auto) 12 % (0-9) Eosinophils (%) (Auto) 0 % (0-3) Basophils (%) (Auto) 0 % (0-3) Neutrophils # (Auto) 10.5 x10^3/uL (1.8-7.7) Lymphocytes # (Auto) 0.6 x10^3/uL (1.0-4.8) Monocytes # (Auto) 1.5 x10^3/uL (0.0-1.1) Eosinophils # (Auto) 0.0 x10^3/uL (0.0-0.7) Basophils # (Auto) 0.0 x10^3/uL (0.0-0.2) Sodium Level 147 mmol/L (136-145) Potassium Level 3.1 mmol/L (3.5-5.1) Chloride Level 113 mmol/L (98-107) Carbon Dioxide Level 21 mmol/L (21-32) Anion Gap 13 (6-14) Blood Urea Nitrogen 46 mg/dL (7-20) Creatinine 1.5 mg/dL (0.6-1.0) Estimated GFR (Cockcroft-Gault) 42.0 Glucose Level 149 mg/dL (70-99) Calcium Level 10.8 mg/dL (8.5-10.1) Phosphorus Level 1.3 mg/dL (2.6-4.7) Magnesium Level 1.7 mg/dL (1.8-2.4) Test 02/05/20 03:11 02/05/20 04:05 02/05/20 05:26 02/05/20 06:32 Glucose (Fingerstick) 127 mg/dL (70-99) 119 mg/dL (70-99) 112 mg/dL (70-99) 114 mg/dL (70-99) Test 02/05/20 07:39 02/05/20 08:45 02/05/20 09:43 02/05/20 10:39 Glucose (Fingerstick) 122 mg/dL (70-99) 130 mg/dL (70-99) 132 mg/dL (70-99) 180 mg/dL (70-99) Test 02/05/20 11:49 02/05/20 13:29 02/05/20 14:34 02/05/20 15:38 Glucose (Fingerstick) 162 mg/dL (70-99) 126 mg/dL (70-99) 126 mg/dL (70-99) 158 mg/dL (70-99) Test 02/05/20 22:03 02/06/20 02:15 02/06/20 05:50 02/06/20 05:55 Glucose (Fingerstick) 357 mg/dL (70-99) 393 mg/dL (70-99) 318 mg/dL (70-99) White Blood Count 13.6 x10^3/uL (4.0-11.0) Red Blood Count 4.04 x10^6/uL (3.50-5.40) Hemoglobin 10.2 g/dL (12.0-15.5) Hematocrit 32.2 % (36.0-47.0) Mean Corpuscular Volume 80 fL (79-100) Mean Corpuscular Hemoglobin 25 pg (25-35) Mean Corpuscular Hemoglobin Concent 32 g/dL (31-37) Red Cell Distribution Width 16.5 % (11.5-14.5) Platelet Count 268 x10^3/uL (140-400) Neutrophils (%) (Auto) 91 % (31-73) Lymphocytes (%) (Auto) 5 % (24-48) Monocytes (%) (Auto) 4 % (0-9) Eosinophils (%) (Auto) 0 % (0-3) Basophils (%) (Auto) 0 % (0-3) Neutrophils # (Auto) 12.4 x10^3/uL (1.8-7.7) Lymphocytes # (Auto) 0.6 x10^3/uL (1.0-4.8) Monocytes # (Auto) 0.6 x10^3/uL (0.0-1.1) Eosinophils # (Auto) 0.0 x10^3/uL (0.0-0.7) Basophils # (Auto) 0.0 x10^3/uL (0.0-0.2) Sodium Level 143 mmol/L (136-145) Potassium Level 3.7 mmol/L (3.5-5.1) Chloride Level 112 mmol/L (98-107) Carbon Dioxide Level 21 mmol/L (21-32) Anion Gap 10 (6-14) Blood Urea Nitrogen 64 mg/dL (7-20) Creatinine 1.8 mg/dL (0.6-1.0) Estimated GFR (Cockcroft-Gault) 34.1 Glucose Level 343 mg/dL (70-99) Calcium Level 9.2 mg/dL (8.5-10.1) Phosphorus Level 3.1 mg/dL (2.6-4.7) Magnesium Level 2.0 mg/dL (1.8-2.4) Test 02/06/20 12:51 Glucose (Fingerstick) 201 mg/dL (70-99) Laboratory Tests Test 02/05/20 14:34 02/05/20 15:38 02/05/20 22:03 02/06/20 02:15 Glucose (Fingerstick) 126 mg/dL (70-99) 158 mg/dL (70-99) 357 mg/dL (70-99) 393 mg/dL (70-99) Test 02/06/20 05:50 02/06/20 05:55 02/06/20 12:51 White Blood Count 13.6 x10^3/uL (4.0-11.0) Red Blood Count 4.04 x10^6/uL (3.50-5.40) Hemoglobin 10.2 g/dL (12.0-15.5) Hematocrit 32.2 % (36.0-47.0) Mean Corpuscular Volume 80 fL (79-100) Mean Corpuscular Hemoglobin 25 pg (25-35) Mean Corpuscular Hemoglobin Concent 32 g/dL (31-37) Red Cell Distribution Width 16.5 % (11.5-14.5) Platelet Count 268 x10^3/uL (140-400) Neutrophils (%) (Auto) 91 % (31-73) Lymphocytes (%) (Auto) 5 % (24-48) Monocytes (%) (Auto) 4 % (0-9) Eosinophils (%) (Auto) 0 % (0-3) Basophils (%) (Auto) 0 % (0-3) Neutrophils # (Auto) 12.4 x10^3/uL (1.8-7.7) Lymphocytes # (Auto) 0.6 x10^3/uL (1.0-4.8) Monocytes # (Auto) 0.6 x10^3/uL (0.0-1.1) Eosinophils # (Auto) 0.0 x10^3/uL (0.0-0.7) Basophils # (Auto) 0.0 x10^3/uL (0.0-0.2) Sodium Level 143 mmol/L (136-145) Potassium Level 3.7 mmol/L (3.5-5.1) Chloride Level 112 mmol/L (98-107) Carbon Dioxide Level 21 mmol/L (21-32) Anion Gap 10 (6-14) Blood Urea Nitrogen 64 mg/dL (7-20) Creatinine 1.8 mg/dL (0.6-1.0) Estimated GFR (Cockcroft-Gault) 34.1 Glucose Level 343 mg/dL (70-99) Calcium Level 9.2 mg/dL (8.5-10.1) Phosphorus Level 3.1 mg/dL (2.6-4.7) Magnesium Level 2.0 mg/dL (1.8-2.4) Glucose (Fingerstick) 318 mg/dL (70-99) 201 mg/dL (70-99) Problem List Problems Medical Problems: (1) Cough Status: Acute (2) Left-sided weakness Status: Acute Assessment/Plan not currently stable for surgery will follow Justicifation of Admission Dx: Justifications for Admission: Justification of Admission Dx: Yes Comminuty Aquired Pneumonia: Immunocomprimised Pt Sepsis: Altered Mental Status Altered Mental Status: Altered 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
[2020-02-06] MEDS: FLUCONAZOLE 200MG/100ML PREMIX 100 ML IV SCH (17:33)
[2020-02-06] MEDS: ENALAPRILAT 1.25 MG/ML VIAL. IVP PRN (19:40)
[2020-02-06] MEDS: INSULIN GLARGINE SYRINGE. SQ SCH (20:45)
[2020-02-06] MEDS: hydrALAZINE 20 MG/ML VIAL. IVP PRN (20:47)
[2020-02-06] MEDS: NORMAL SALINE IV SCH (20:49)
[2020-02-06] MEDS: TACROLIMUS IV SCH (20:49)
[2020-02-06] MEDS ORDERED: TOTAL PARENTERAL NUTRITION IV SCH ×10 (22:00)
[2020-02-06] MEDS ORDERED: [UNRECOGNIZED DRUG - OTHER] IV SCH ×10 (22:00)
[2020-02-06] MEDS ORDERED: DEXTROSE 70% IV SCH ×10 (22:00)
[2020-02-06] MEDS ORDERED: AMINO ACID IV SCH ×10 (22:00)
[2020-02-07] VITALS (25 sets, daily range): BP systolic 151–197; BP diastolic 62–98
[2020-02-07] MEDS: INSULIN LISPRO 300 UNITS/3 ML VIAL. SQ SCH ×6 (00:18→21:15)
[2020-02-07] MEDS: LABETALOL 20 MG/4 ML DISP.SYRIN. IVP PRN (00:18)
[2020-02-07] MEDS: PIPERACILLIN/TAZOBACTAM 2.25 GM in IV NORMAL SALINE 50ML 50 ML IV SCH ×4 (00:21→17:51)
[2020-02-07] MEDS: IV NORMAL SALINE 1000ML BAG 1,000 ML IV SCH ×3 (02:57→15:18)
[2020-02-07] MEDS: ENALAPRILAT 1.25 MG/ML VIAL. IVP PRN ×2 (03:01→10:01)
[2020-02-07 05:23] LABS: BASO % 0 % (0-3); EOS % 0 % (0-3); HEMATOCRIT 32.8 % (36.0-47.0); HEMOGLOBIN 10.5 g/dL (12.0-15.5); LYMPH # 1.1 x10^3/uL (1.0-4.8); LYMPH % 6 % (24-48); MEAN CORPUSCULAR HEMOGLOBIN 25 pg (25-35); MEAN CORPUSCULAR HGB CONC 32 g/dL (31-37); MEAN CORPUSCULAR VOLUME 80 fL (79-100); MONO # 1.6 x10^3/uL (0.0-1.1); MONO % 9 % (0-9); NEUT # 15.7 x10^3/uL (1.8-7.7); NEUT % 86 % (31-73); PLATELET COUNT 288 x10^3/uL (140-400); RED BLOOD COUNT 4.12 x10^6/uL (3.50-5.40); RED CELL DISTRIBUTION WIDTH 16.4 % (11.5-14.5); WHITE BLOOD COUNT 18.3 x10^3/uL (4.0-11.0)
[2020-02-07 05:48] LABS: CALCIUM 9.2 mg/dL (8.5-10.1); CREATININE 1.5 mg/dL (0.6-1.0); POTASSIUM 3.5 mmol/L (3.5-5.1)
[2020-02-07] MEDS: ASPIRIN ENTERIC COATED 325 MG TABLET.DR. PO SCH (08:00)
--- NOTE | 2020-02-07 08:02 | PDOC ---
Infectious Disease Note Subjective: Subjective Patient more alert this morning Denies any pain/nausea/headache/ vomiting/abdominal pain no fevers Dry mouth Discussed with RN Vital Signs: Vital Signs Vital Signs Date Time Temp Pulse Resp B/P (MAP) Pulse Ox O2 Delivery O2 Flow Rate FiO2 02/07/20 07:00 88 29 160/67 (98) 95 Room Air 02/07/20 04:00 97.6 97.6 Physical Exam: PHYSICAL EXAM GENERAL: Alert awake female in no acute distress HEENT: Pupils equal , dry coated tongue NECK: Supple LUNGS: Creased breath sound at the bases no accessory muscle use HEART: S1, S2. regular ABDOMEN: Soft, no grimacing on deep palpation , no guarding or rigidity no [place] EXTREMITIES: No edema, no cyanosis, no clubbing. Previous amputation site, left great and second toe scar intact. No draining wounds. SKIN: warm to touch. No generalized rash. 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 PIV looks ok Medications: Inpatient Meds: Current Medications Medications (Trade) Dose Ordered Sig/Te Start Time Stop Time Status Last Admin Dose Admin Acetaminophen (Tylenol Supp) 650 mg PRN Q4HRS PRN 01/24/20 08:30 02/04/20 09:45 650 MG Acetaminophen (Tylenol) 1,000 mg PRN Q8HRS PRN 01/24/20 10:15 Amino Acids/ Glycerin/ Electrolytes 1,000 ml @ 75 mls/hr [id number] 01/24/20 13:45 01/30/20 10:00 DC 01/29/20 15:50 75 MLS/HR Aspirin (Aspirin Rectal Supp) 300 mg PRN DAILY PRN 01/24/20 08:30 02/04/20 09:56 300 MG Aspirin (Ecotrin) 81 mg DAILY 01/25/20 09:00 UNV Calcium Gluconate (Calcium Gluconate) 1,000 mg 1X ONCE 02/03/20 10:30 02/03/20 10:31 DC 02/03/20 10:49 1,000 MG Cefazolin Sodium (Ancef) 1 gm 1X ONCE 01/31/20 12:00 01/31/20 12:01 DC Clonidine HCl (Catapres Tts-1) 2 patch Tu 02/06/20 09:45 02/06/20 12:47 DC 02/06/20 12:45 2 PATCH Clonidine HCl (Catapres Tts-2) 1 patch WEEKLY 02/06/20 13:00 02/06/20 12:58 1 PATCH Clonidine HCl (Catapres Tts-3) 1 patch 1X ONCE 01/24/20 05:30 01/24/20 05:31 DC Clonidine HCl (Catapres) 0.2 mg 1X ONCE 01/23/20 17:30 01/23/20 17:31 DC 01/23/20 17:38 0.2 MG Dextrose (Dextrose 50%-Water Syringe) 12.5 gm PRN Q15MIN PRN 02/04/20 08:30 Dextrose/Sodium Chloride 1,000 ml @ 100 mls/hr 1X ONCE 01/23/20 17:45 01/24/20 03:44 DC 01/23/20 19:24 100 MLS/HR Enalaprilat (Vasotec Inj) 1.25 mg PRN Q6HRS PRN 01/25/20 12:00 02/07/20 03:01 1.25 MG Enoxaparin Sodium (Lovenox 40mg Syringe) 40 mg Q24H 01/24/20 11:00 01/26/20 12:24 DC 01/26/20 10:12 40 MG Fluconazole (Diflucan) 200 mg DAILY 01/24/20 11:00 02/04/20 16:17 DC 02/03/20 10:49 200 MG Fluconazole/ Sodium Chloride 100 ml @ 100 mls/hr Q24H 02/04/20 17:00 02/06/20 17:33 100 MLS/HR Heparin Sodium (Porcine) (Hep Lock Adult) 500 unit 1X ONCE 02/03/20 15:45 02/03/20 15:49 DC 02/03/20 15:45 500 UNIT Heparin Sodium (Porcine) (Heparin Sodium) 5,000 unit Q12HR 02/04/20 10:15 02/06/20 20:48 5,000 UNIT Hydralazine HCl (Apresoline Inj) 10 mg PRN Q4HRS PRN 01/31/20 09:45 02/06/20 20:47 10 MG Hydralazine HCl (Apresoline) 25 mg BID 01/24/20 21:00 02/03/20 10:49 25 MG Info (Tpn Per Pharmacy) 1 each PRN DAILY PRN 02/03/20 10:00 02/06/20 12:35 1 EACH Insulin Glargine (Lantus Syringe) 18 unit QHS 02/05/20 21:00 02/06/20 20:45 18 UNIT Insulin Human Lispro (HumaLOG) 0-9 UNITS Q4HRS 02/05/20 16:00 02/07/20 00:18 4 UNITS Insulin Human Regular 100 unit/ Sodium Chloride 101 ml @ 0 mls/hr CONT PRN 02/04/20 16:15 02/05/20 16:11 DC 02/04/20 21:30 13.9 MLS/HR Labetalol HCl (Normodyne Iv Push) 20 mg PRN Q4HRS PRN 01/24/20 04:15 02/07/20 00:18 20 MG Levetiracetam (Keppra) 500 mg BID 01/27/20 09:00 02/04/20 16:15 DC 02/03/20 10:49 500 MG Levetiracetam 500 mg/Dextrose 105 ml @ 420 mls/hr Q12HR 02/04/20 21:00 02/06/20 20:43 420 MLS/HR Lidocaine/ Epinephrine (LIDOCAINE 1%-EPI 1:100,000 Multi-Dose) 20 ml 1X ONCE 02/03/20 15:15 02/03/20 15:16 DC 02/03/20 15:35 6 ML Linezolid/Dextrose 300 ml @ 300 mls/hr Q12HR 02/03/20 11:00 02/04/20 10:18 DC 02/04/20 09:41 300 MLS/HR Lisinopril (Prinivil) 20 mg DAILY 01/24/20 12:00 02/02/20 11:51 DC 02/01/20 10:37 20 MG Lorazepam (Ativan Inj) 0.5 mg PRN Q4HRS PRN 01/24/20 16:45 02/05/20 23:59 0.5 MG Magnesium Sulfate 50 ml @ 25 mls/hr 1X ONCE 02/05/20 12:00 02/05/20 13:59 DC 02/05/20 12:54 25 MLS/HR Methylprednisolone Sodium Succinate (SOLU-Medrol 40MG VIAL) 40 mg DAILY 02/07/20 09:00 Morphine Sulfate (Morphine Sulfate) 2 mg PRN Q2HR PRN 01/23/20 17:45 01/24/20 17:44 DC Nicardipine HCl 50 mg/Sodium Chloride 250 ml @ 25 mls/hr CONT PRN 02/05/20 10:45 02/05/20 22:06 25 MLS/HR Non-Formulary Medication 0.5 ea BID 01/24/20 15:00 01/27/20 04:41 DC 01/24/20 21:12 0.5 EA Non-Formulary Medication 1 ea/ Sodium Chloride 50 ml @ 50 mls/hr Q12HR 02/05/20 21:00 02/06/20 10:32 DC 02/06/20 09:05 50 MLS/HR Olanzapine (ZyPREXA) 10 mg QHS 01/24/20 21:00 01/27/20 09:52 DC 01/26/20 21:14 10 MG Ondansetron HCl (Zofran) 4 mg PRN Q8HRS PRN 01/23/20 17:45 01/24/20 17:44 DC Pharmacy Consult (C.diff Med Screen By Rx) 1 each 1X ONCE 01/24/20 09:00 01/24/20 09:01 DC 01/24/20 08:26 1 EACH Piperacillin Sod/ Tazobactam Sod (Zosyn Per Pharmacy) 1 each PRN DAILY PRN 01/24/20 04:30 01/24/20 09:32 DC Piperacillin Sod/ Tazobactam Sod 2.25 gm/Sodium Chloride 50 ml @ 100 mls/hr Q6HRS 02/04/20 12:00 02/07/20 05:37 100 MLS/HR Piperacillin Sod/ Tazobactam Sod 3.375 gm/Sodium Chloride 50 ml @ 100 mls/hr Q6H 01/24/20 05:00 01/24/20 09:30 DC 01/24/20 05:06 100 MLS/HR Potassium Phosphate 10 mmol/ Sodium Chloride 103.3333 ml @ 51.667 m... Q2H 02/05/20 12:00 02/05/20 15:59 DC 02/05/20 15:41 51.667 MLS/HR Prednisone (Prednisone) 5 mg DAILY 01/27/20 09:00 02/05/20 09:29 DC 02/03/20 10:48 5 MG Propofol (Diprivan) 200 mg STK-MED ONCE 01/31/20 13:08 01/31/20 13:09 DC Quetiapine Fumarate (SEROquel) 25 mg BID 01/24/20 12:00 01/27/20 09:52 DC 01/26/20 21:14 25 MG Ringer's Solution 1,000 ml @ 75 mls/hr 1X ONCE 01/31/20 08:15 01/31/20 21:34 DC Sodium Acetate 40 meq/Potassium Acetate 30 meq/ Potassium Phosphate 20 mmol/ Magnesium Sulfate 10 meq/ Multivitamins 10 ml/Chromium/ Copper/Manganese/ Seleni/Zn 1 ml/ Insulin Human Regular 50 unit/ Total Parenteral Nutrition/Amino Acids/Dextrose/ Fat Emulsion Intravenous 1,512 ml @ 63 mls/hr TPN CONT 02/06/20 22:00 02/07/20 21:59 02/06/20 22:53 63 MLS/HR Sodium Acetate 40 meq/Potassium Phosphate 20 mmol/ Magnesium Sulfate 10 meq/ Multivitamins 10 ml/Chromium/ Copper/Manganese/ Seleni/Zn 1 ml/ Insulin Human Regular 30 unit/ Potassium Acetate 30 meq/Total Parenteral Nutrition/Amino Acids/Dextrose/ Fat Emulsion Intravenous 1,512 ml @ 63 mls/hr TPN CONT 02/05/20 22:00 02/06/20 21:59 DC 02/05/20 23:04 63 MLS/HR Sodium Chloride 20 meq/Sodium Acetate 70 meq/ Sodium Phosphate 13.6 mmol/ Magnesium Sulfate 5 meq/ Multivitamins 10 ml/Chromium/ Copper/Manganese/ Seleni/Zn 1 ml/ Insulin Human Regular 30 unit/ Total Parenteral Nutrition/Amino Acids/Dextrose/ Fat Emulsion Intravenous 1,512 ml @ 63 mls/hr TPN CONT 02/04/20 22:00 02/05/20 21:59 DC 02/04/20 21:28 63 MLS/HR Sodium Chloride 90 meq/Magnesium Sulfate 5 meq/ Multivitamins 10 ml/Chromium/ Copper/Manganese/ Seleni/Zn 1 ml/ Insulin Human Regular 10 unit/ Total Parenteral Nutrition/Amino Acids/Dextrose/ Fat Emulsion Intravenous 1,512 ml @ 63 mls/hr TPN CONT 02/03/20 22:00 02/04/20 21:59 DC 02/03/20 21:49 63 MLS/HR Tacrolimus (Prograf Inj) 5 mg STK-MED ONCE 02/06/20 09:00 02/06/20 10:34 DC Tacrolimus (Prograf Oral Susp) 0.5 mg STK-MED ONCE 01/24/20 21:00 01/27/20 14:30 DC Tacrolimus (Prograf) 0.5 mg BID 01/24/20 12:00 02/05/20 11:57 DC 02/03/20 10:49 0.5 MG Tacrolimus 0.5 mg/ Sodium Chloride 50.1 ml @ 50.1 mls/hr Q12HR 02/06/20 21:00 02/06/20 20:49 50.1 MLS/HR Trazodone HCl (Desyrel) 50 mg QHS 01/24/20 21:00 01/27/20 09:52 DC 01/26/20 21:14 50 MG Vitamin B Complex/ Vitamin C (Vicki-Stacey) 1 tab DAILY 01/25/20 09:00 02/03/20 10:48 1 TAB Labs: Lab Laboratory Tests Test 02/06/20 12:51 02/06/20 17:36 02/06/20 20:18 02/07/20 00:16 Glucose (Fingerstick) 201 mg/dL (70-99) 187 mg/dL (70-99) 213 mg/dL (70-99) 176 mg/dL (70-99) Test 02/07/20 04:06 02/07/20 05:00 Glucose (Fingerstick) 150 mg/dL (70-99) White Blood Count 18.3 x10^3/uL (4.0-11.0) Red Blood Count 4.12 x10^6/uL (3.50-5.40) Hemoglobin 10.5 g/dL (12.0-15.5) Hematocrit 32.8 % (36.0-47.0) Mean Corpuscular Volume 80 fL (79-100) Mean Corpuscular Hemoglobin 25 pg (25-35) Mean Corpuscular Hemoglobin Concent 32 g/dL (31-37) Red Cell Distribution Width 16.4 % (11.5-14.5) Platelet Count 288 x10^3/uL (140-400) Neutrophils (%) (Auto) 86 % (31-73) Lymphocytes (%) (Auto) 6 % (24-48) Monocytes (%) (Auto) 9 % (0-9) Eosinophils (%) (Auto) 0 % (0-3) Basophils (%) (Auto) 0 % (0-3) Neutrophils # (Auto) 15.7 x10^3/uL (1.8-7.7) Lymphocytes # (Auto) 1.1 x10^3/uL (1.0-4.8) Monocytes # (Auto) 1.6 x10^3/uL (0.0-1.1) Eosinophils # (Auto) 0.0 x10^3/uL (0.0-0.7) Basophils # (Auto) 0.0 x10^3/uL (0.0-0.2) Sodium Level 145 mmol/L (136-145) Potassium Level 3.5 mmol/L (3.5-5.1) Chloride Level 112 mmol/L (98-107) Carbon Dioxide Level 19 mmol/L (21-32) Anion Gap 14 (6-14) Blood Urea Nitrogen 64 mg/dL (7-20) Creatinine 1.5 mg/dL (0.6-1.0) Estimated GFR (Cockcroft-Gault) 42.0 Glucose Level 152 mg/dL (70-99) Calcium Level 9.2 mg/dL (8.5-10.1) Micro Cultures negative Cryptococcal antigen in the blood 1 is to 40 Cryptococcal antigen in CSF negative CSF unremarkable CSF Fungal cults cancelled BLOOD CULTURE LC Final Final GRAM NEGATIVE RODS FINAL ID= [ESCHERICHIA COLI] MICRO CHARGES MICRO CHARGES ESCHERICHIA COLI ANTIMICROBIAL SUSCEPTIBILITY Final Comment NEG LYN 56 ESCHERICHIA COLI ANTIBIOTIC RESULT INTERPRETATION AMPICILLIN/SULBACTAM <=4/2 S AMIKACIN <=16 S AMPICILLIN <=8 S AMOXICILLIN/K CLAVULANATE <=8/4 S AZTREONAM <=4 S CEFTRIAXONE <=1 S CEFTAZIDIME <=1 S CEFOTAXIME <=2 S CEFOXITIN 16 I CIPROFLOXACIN >2 R CEFEPIME <=2 S CEFUROXIME 16 I CEFTAZIDIME/AVIBACTAM <=4 S ERTAPENEM <=0.5 S GENTAMICIN <=2 S LEVOFLOXACIN >4 R MEROPENEM <=1 S PIPERACILLIN/TAZOBACTAM <=8 S TRIMETHOPRIM/SULFAMETHOXAZOLE <=0.5/9.5 S TETRACYCLINE <=4 S TOBRAMYCIN <=2 S Unless otherwise specified, Testing Performed by: [facility] Objective: Assessment: E coli sepsis 02/02 2 out of 4 bottles, source E coli UTI Leucocytosis on steroids Low-grade fever resolved Hypertensive urgency improving Encephalopathy. Improved likely from sepsis History of epilepsy. Diabetes with peripheral neuropathy. h/o disseminated cryptococcus, on fluconazole. CSF cryptococcal antigen negative i January 27 2000 Gastroesophageal reflux disease. Peripheral arterial disease. Chronic kidney disease, status post renal transplant. Immunosuppression Coronary artery disease. COVID-19 neg, 01/23 Plan: Plan of Care Continue Zosyn 02/02, Continue chronic fluconazole treatment maintain aspiration precautions Follow-up labs and cultures, Supportive care Discussed with LINDY OCASIO MD Feb 07, 2020 08:02
[2020-02-07] MEDS ORDERED: methylPREDNISolone SOD SUCC PF 40 MG/ML VIAL. IV SCH (09:00)
[2020-02-07] MEDS: hydrALAZINE 25 MG TABLET PO SCH ×2 (09:00→21:40)
[2020-02-07] MEDS: FOLIC/VIT B COMP W-C (RENAL) TABLET. PO SCH (09:00)
--- NOTE | 2020-02-07 09:01 | PDOC ---
PROGRESS NOTES Assessment Problems Medical Problems: (1) Cough Status: Acute (2) Left-sided weakness Status: Acute Metabolic encephalopathy No acute stroke. Dementia and multiple psychiatric diagnoses. 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 Diabetic peripheral neuropathy Ruled out COVID Poor oral intake, PEG unsuccessful, awaiting G-tube Note LP done, negative, elevated protein in isolation is nonspecific, may be seen, for instance, in diabetes Medical issues: status-post renal transplant, chronic allograft nephropathy, CKD stage 3, istory of disseminated Cryptococcus, coronary artery disease, anemia, lung nodules She is DNR Plan Levetiracetam Return to group home or LTAC when medically stable Subjective none Objective Vital Signs Date Time Temp Pulse Resp B/P (MAP) Pulse Ox O2 Delivery O2 Flow Rate FiO2 02/07/20 07:00 88 29 160/67 (98) 95 Room Air 02/07/20 04:00 97.6 97.6 Intake and Output 02/07/20 07:00 Intake Total 3743.1 ml Output Total 1265 ml Balance 2478.1 ml IV Total 3743.1 ml Output Urine Total 1265 ml # Bowel Movements 1 PHYSICAL EXAM Alert, tells me her name, follows some commands PERRL. EOMI. CN: no focal findings. Muscle tone: normal. Muscle strength: 3/5 DTR: 1+ Plantar reflex: flexor Gait: not examined in bed. Sensory exam: stocking loss. Cerebellar: Not cooperative Review of Relevant I have reviewed the following items warner (where applicable) has been applied. Labs Laboratory Tests Test 02/05/20 09:43 02/05/20 10:39 02/05/20 11:49 02/05/20 13:29 Glucose (Fingerstick) 132 mg/dL (70-99) 180 mg/dL (70-99) 162 mg/dL (70-99) 126 mg/dL (70-99) Test 02/05/20 14:34 02/05/20 15:38 02/05/20 22:03 02/06/20 02:15 Glucose (Fingerstick) 126 mg/dL (70-99) 158 mg/dL (70-99) 357 mg/dL (70-99) 393 mg/dL (70-99) Test 02/06/20 05:50 02/06/20 05:55 02/06/20 12:51 02/06/20 17:36 White Blood Count 13.6 x10^3/uL (4.0-11.0) Red Blood Count 4.04 x10^6/uL (3.50-5.40) Hemoglobin 10.2 g/dL (12.0-15.5) Hematocrit 32.2 % (36.0-47.0) Mean Corpuscular Volume 80 fL (79-100) Mean Corpuscular Hemoglobin 25 pg (25-35) Mean Corpuscular Hemoglobin Concent 32 g/dL (31-37) Red Cell Distribution Width 16.5 % (11.5-14.5) Platelet Count 268 x10^3/uL (140-400) Neutrophils (%) (Auto) 91 % (31-73) Lymphocytes (%) (Auto) 5 % (24-48) Monocytes (%) (Auto) 4 % (0-9) Eosinophils (%) (Auto) 0 % (0-3) Basophils (%) (Auto) 0 % (0-3) Neutrophils # (Auto) 12.4 x10^3/uL (1.8-7.7) Lymphocytes # (Auto) 0.6 x10^3/uL (1.0-4.8) Monocytes # (Auto) 0.6 x10^3/uL (0.0-1.1) Eosinophils # (Auto) 0.0 x10^3/uL (0.0-0.7) Basophils # (Auto) 0.0 x10^3/uL (0.0-0.2) Sodium Level 143 mmol/L (136-145) Potassium Level 3.7 mmol/L (3.5-5.1) Chloride Level 112 mmol/L (98-107) Carbon Dioxide Level 21 mmol/L (21-32) Anion Gap 10 (6-14) Blood Urea Nitrogen 64 mg/dL (7-20) Creatinine 1.8 mg/dL (0.6-1.0) Estimated GFR (Cockcroft-Gault) 34.1 Glucose Level 343 mg/dL (70-99) Calcium Level 9.2 mg/dL (8.5-10.1) Phosphorus Level 3.1 mg/dL (2.6-4.7) Magnesium Level 2.0 mg/dL (1.8-2.4) Glucose (Fingerstick) 318 mg/dL (70-99) 201 mg/dL (70-99) 187 mg/dL (70-99) Test 02/06/20 20:18 02/07/20 00:16 02/07/20 04:06 02/07/20 05:00 Glucose (Fingerstick) 213 mg/dL (70-99) 176 mg/dL (70-99) 150 mg/dL (70-99) White Blood Count 18.3 x10^3/uL (4.0-11.0) Red Blood Count 4.12 x10^6/uL (3.50-5.40) Hemoglobin 10.5 g/dL (12.0-15.5) Hematocrit 32.8 % (36.0-47.0) Mean Corpuscular Volume 80 fL (79-100) Mean Corpuscular Hemoglobin 25 pg (25-35) Mean Corpuscular Hemoglobin Concent 32 g/dL (31-37) Red Cell Distribution Width 16.4 % (11.5-14.5) Platelet Count 288 x10^3/uL (140-400) Neutrophils (%) (Auto) 86 % (31-73) Lymphocytes (%) (Auto) 6 % (24-48) Monocytes (%) (Auto) 9 % (0-9) Eosinophils (%) (Auto) 0 % (0-3) Basophils (%) (Auto) 0 % (0-3) Neutrophils # (Auto) 15.7 x10^3/uL (1.8-7.7) Lymphocytes # (Auto) 1.1 x10^3/uL (1.0-4.8) Monocytes # (Auto) 1.6 x10^3/uL (0.0-1.1) Eosinophils # (Auto) 0.0 x10^3/uL (0.0-0.7) Basophils # (Auto) 0.0 x10^3/uL (0.0-0.2) Sodium Level 145 mmol/L (136-145) Potassium Level 3.5 mmol/L (3.5-5.1) Chloride Level 112 mmol/L (98-107) Carbon Dioxide Level 19 mmol/L (21-32) Anion Gap 14 (6-14) Blood Urea Nitrogen 64 mg/dL (7-20) Creatinine 1.5 mg/dL (0.6-1.0) Estimated GFR (Cockcroft-Gault) 42.0 Glucose Level 152 mg/dL (70-99) Calcium Level 9.2 mg/dL (8.5-10.1) Laboratory Tests Test 02/06/20 12:51 02/06/20 17:36 02/06/20 20:18 02/07/20 00:16 Glucose (Fingerstick) 201 mg/dL (70-99) 187 mg/dL (70-99) 213 mg/dL (70-99) 176 mg/dL (70-99) Test 02/07/20 04:06 02/07/20 05:00 Glucose (Fingerstick) 150 mg/dL (70-99) White Blood Count 18.3 x10^3/uL (4.0-11.0) Red Blood Count 4.12 x10^6/uL (3.50-5.40) Hemoglobin 10.5 g/dL (12.0-15.5) Hematocrit 32.8 % (36.0-47.0) Mean Corpuscular Volume 80 fL (79-100) Mean Corpuscular Hemoglobin 25 pg (25-35) Mean Corpuscular Hemoglobin Concent 32 g/dL (31-37) Red Cell Distribution Width 16.4 % (11.5-14.5) Platelet Count 288 x10^3/uL (140-400) Neutrophils (%) (Auto) 86 % (31-73) Lymphocytes (%) (Auto) 6 % (24-48) Monocytes (%) (Auto) 9 % (0-9) Eosinophils (%) (Auto) 0 % (0-3) Basophils (%) (Auto) 0 % (0-3) Neutrophils # (Auto) 15.7 x10^3/uL (1.8-7.7) Lymphocytes # (Auto) 1.1 x10^3/uL (1.0-4.8) Monocytes # (Auto) 1.6 x10^3/uL (0.0-1.1) Eosinophils # (Auto) 0.0 x10^3/uL (0.0-0.7) Basophils # (Auto) 0.0 x10^3/uL (0.0-0.2) Sodium Level 145 mmol/L (136-145) Potassium Level 3.5 mmol/L (3.5-5.1) Chloride Level 112 mmol/L (98-107) Carbon Dioxide Level 19 mmol/L (21-32) Anion Gap 14 (6-14) Blood Urea Nitrogen 64 mg/dL (7-20) Creatinine 1.5 mg/dL (0.6-1.0) Estimated GFR (Cockcroft-Gault) 42.0 Glucose Level 152 mg/dL (70-99) Calcium Level 9.2 mg/dL (8.5-10.1) Microbiology 02/05/20 Blood Culture - Preliminary, Resulted NO GROWTH AFTER 2 DAYS 02/04/20 Urine Culture - Final, Complete 02/04/20 Antimicrobic Susceptibility - Final, Complete Medications Current Medications Clonidine HCl (Catapres) 0.2 mg 1X ONCE PO Last administered on 01/23/20at 17:38; Start 01/23/20 at 17:30; Stop 01/23/20 at 17:31; Status DC Ondansetron HCl (Zofran) 4 mg PRN Q8HRS PRN IV NAUSEA/VOMITING; Start 01/23/20 at 17:45; Stop 01/24/20 at 17:44; Status DC Morphine Sulfate (Morphine Sulfate) 2 mg PRN Q2HR PRN IV PAIN; Start 01/23/20 at 17:45; Stop 01/24/20 at 17:44; Status DC Dextrose/Sodium Chloride 1,000 ml @ 100 mls/hr 1X ONCE IV Last administered on 01/23/20at 19:24; Start 01/23/20 at 17:45; Stop 01/24/20 at 03:44; Status DC Pharmacy Consult (C.diff Med Screen By Rx) 1 each 1X ONCE MC Last administered on 01/24/20at 08:26; Start 01/24/20 at 09:00; Stop 01/24/20 at 09:01; Status DC Labetalol HCl (Normodyne Iv Push) 20 mg PRN Q4HRS PRN IVP HYPERTENSION, 2nd choice Last administered on 02/07/20at 00:18; Start 01/24/20 at 04:15 Clonidine HCl (Catapres Tts-3) 1 patch WEEKLY TD ; Start 01/24/20 at 09:00; Stop 01/24/20 at 05:21; Status DC Piperacillin Sod/ Tazobactam Sod (Zosyn Per Pharmacy) 1 each PRN DAILY PRN MC SEE COMMENTS; Start 01/24/20 at 04:30; Stop 01/24/20 at 09:32; Status DC Piperacillin Sod/ Tazobactam Sod 3.375 gm/Sodium Chloride 50 ml @ 100 mls/hr Q6H IV Last administered on 01/24/20at 05:06; Start 01/24/20 at 05:00; Stop 01/24/20 at 09:30; Status DC Clonidine HCl (Catapres Tts-3) 1 patch WEEKLY TD Last administered on 01/31/20at 08:22; Start 01/24/20 at 16:00; Stop 02/04/20 at 09:59; Status DC Clonidine HCl (Catapres Tts-3) 1 patch 1X ONCE TD ; Start 01/24/20 at 05:30; Stop 01/24/20 at 05:31; Status DC Levetiracetam (Keppra) 500 mg BID PO ; Start 01/24/20 at 09:00; Status Cancel Acetaminophen (Tylenol) 650 mg PRN Q6HRS PRN PO TEMP > 100.4F; Start 01/24/20 at 08:30; Stop 01/26/20 at 12:00; Status DC Acetaminophen (Tylenol Supp) 650 mg PRN Q4HRS PRN NM TEMP > 100.4F Last administered on 02/04/20at 09:45; Start 01/24/20 at 08:30 Aspirin (Ecotrin) 325 mg DAILYWBKFT PO Last administered on 02/03/20at 10:49; Start 01/25/20 at 08:00 Aspirin (Aspirin Rectal Supp) 300 mg PRN DAILY PRN NM IF UNABLE TO TAKE PO Last administered on 02/04/20at 09:56; Start 01/24/20 at 08:30 Lorazepam (Ativan Inj) 2 mg PRN Q4HRS PRN IVP ANXIETY / AGITATION Last administered on 01/24/20at 10:14; Start 01/24/20 at 10:00; Stop 01/24/20 at 1 6:35; Status DC Acetaminophen (Tylenol) 1,000 mg PRN Q8HRS PRN PO MILD PAIN OR FEVER; Start 01/24/20 at 10:15 Aspirin (Ecotrin) 81 mg DAILY PO ; Start 01/25/20 at 09:00; Status UNV Vitamin B Complex/ Vitamin C (Vicki-Stacey) 1 tab DAILY PO Last administered on 02/03/20at 10:48; Start 01/25/20 at 09:00 Hydralazine HCl (Apresoline) 25 mg BID PO Last administered on 02/03/20at 10:49; Start 01/24/20 at 21:00 Insulin Human Lispro (HumaLOG) 2 units DAILYWLUN SQ Last administered on 02/04/20at 14:43; Start 01/24/20 at 12:00; Stop 02/04/20 at 16:11; Status DC Insulin Human Lispro (HumaLOG) 4 units DAILYWBKFT SQ Last administered on 02/02/20at 09:18; Start 01/25/20 at 08:00; Stop 02/04/20 at 16:11; Status DC Insulin Human Lispro (HumaLOG) 8 units DAILYWSUP SQ Last administered on 02/03/20at 18:17; Start 01/24/20 at 17:00; Stop 02/04/20 at 16:11; Status DC Lisinopril (Prinivil) 20 mg DAILY PO Last administered on 02/01/20at 10:37; Start 01/24/20 at 12:00; Stop 02/02/20 at 11:51; Status DC Prednisone (Prednisone) 2 mg DAILY PO Last administered on 01/26/20at 10:15; Start 01/24/20 at 12:00; Stop 01/26/20 at 12:24; Status DC Quetiapine Fumarate (SEROquel) 25 mg BID PO Last administered on 01/26/20at 21:14; Start 01/24/20 at 12:00; Stop 01/27/20 at 09:52; Status DC Tacrolimus (Prograf) 0.5 mg BID PO Last administered on 02/03/20at 10:49; Start 01/24/20 at 12:00; Stop 02/05/20 at 11:57; Status DC Trazodone HCl (Desyrel) 50 mg QHS PO Last administered on 01/26/20at 21:14; Start 01/24/20 at 21:00; Stop 01/27/20 at 09:52; Status DC Fluconazole (Diflucan) 200 mg DAILY PO Last administered on 02/03/20at 10:49; Start 01/24/20 at 11:00; Stop 02/04/20 at 16:17; Status DC Insulin Glargine (Lantus Syringe) 18 unit QHS SQ ; Start 01/24/20 at 21:00; Stop 01/24/20 at 20:59; Status DC Olanzapine (ZyPREXA) 10 mg QHS PO Last administered on 01/26/20 21:14; Start 01/24/20 at 21:00; Stop 01/27/20 at 09:52; Status DC Enoxaparin Sodium (Lovenox 40mg Syringe) 40 mg Q24H SQ Last administered on 01/26/20at 10:12; Start 01/24/20 at 11:00; Stop 01/26/20 at 12:24; Status DC Amino Acids/ Glycerin/ Electrolytes 1,000 ml @ 75 mls/hr [id number] IV Last administered on 01/29/20at 15:50; Start 01/24/20 at 13:45; Stop 01/30/20 at 10:00; Status DC Levetiracetam 500 mg/Dextrose 105 ml @ 420 mls/hr Q12HR IV Last administered on 01/26/20at 21:14; Start 01/24/20 at 13:45; Stop 01/27/20 at 08:47; Status DC Non-Formulary Medication 0.5 ea BID NG Last administered on 01/24/20at 21:12; Start 01/24/20 at 15:00; Stop 01/27/20 at 04:41; Status DC Lorazepam (Ativan Inj) 0.5 mg PRN Q4HRS PRN IVP ANXIETY / AGITATION Last administered on 02/05/20at 23:59; Start 01/24/20 at 16:45 Insulin Glargine (Lantus Syringe) 18 unit QHS SQ Last administered on 02/03/20at 20:15; Start 01/24/20 at 21:00; Stop 02/04/20 at 16:11; Status DC Dextrose (Dextrose 50%-Water Syringe) 12.5 gm PRN Q15MIN PRN IV SEE COMMENTS; Start 01/24/20 at 21:45; Stop 02/04/20 at 11:34; Status DC Enalaprilat (Vasotec Inj) 1.25 mg PRN Q6HRS PRN IVP HYPERTENSION, 1st choice Last administered on 02/07/20at 03:01; Start 01/25/20 at 12:00 Prednisone (Prednisone) 5 mg DAILY PO Last administered on 02/03/20at 10:48; Start 01/27/20 at 09:00; Stop 02/05/20 at 09:29; Status DC Levetiracetam (Keppra) 500 mg BID PO Last administered on 02/03/20at 10:49; Start 01/27/20 at 09:00; Stop 02/04/20 at 16:15; Status DC Tacrolimus (Prograf Oral Susp) 0.5 mg STK-MED ONCE .ROUTE ; Start 01/24/20 at 21:00; Stop 01/27/20 at 14:30; Status DC Tacrolimus (Prograf Oral Susp) 0.5 mg STK-MED ONCE .ROUTE ; Start 01/24/20 at 21:00; Stop 01/27/20 at 14:30; Status DC Cefazolin Sodium (Ancef) 1 gm 1X ONCE IVP ; Start 01/31/20 at 12:00; Stop 01/31/20 at 12:01; Status DC Ringer's Solution 1,000 ml @ 50 mls/hr Q20H IV ; Start 01/31/20 at 07:00; Stop 01/31/20 at 18:59; Status DC Ringer's Solution 1,000 ml @ 75 mls/hr 1X ONCE IV ; Start 01/31/20 at 08:15; Stop 01/31/20 at 21:34; Status DC Hydralazine HCl (Apresoline Inj) 10 mg PRN Q4HRS PRN IVP ELEVATED BP, 3RD CHOICE Last administered on 02/06/20at 20:47; Start 01/31/20 at 09:45 Propofol (Diprivan) 200 mg STK-MED ONCE IV ; Start 01/31/20 at 13:08; Stop 01/31/20 at 13:09; Status DC Sodium Chloride 1,000 ml @ 100 mls/hr Q10H IV Last administered on 02/07/20at 02:57; Start 02/02/20 at 11:00 Info (Tpn Per Pharmacy) 1 each PRN DAILY PRN MC SEE COMMENTS Last administered on 02/06/20at 12:35; Start 02/03/20 at 10:00 Piperacillin Sod/ Tazobactam Sod 2.25 gm/Sodium Chloride 50 ml @ 100 mls/hr Q6HRS IV Last administered on 02/04/20at 05:57; Start 02/03/20 at 12:00; Stop 02/04/20 at 10:19; Status DC Insulin Human Lispro (HumaLOG) 10 units 1X ONCE SQ Last administered on 02/03/20at 11:10; Start 02/03/20 at 10:30; Stop 02/03/20 at 10:31; Status DC Calcium Gluconate (Calcium Gluconate) 1,000 mg 1X ONCE IVP Last administered on 02/03/20at 10:49; Start 02/03/20 at 10:30; Stop 02/03/20 at 10:31; Status DC Linezolid/Dextrose 300 ml @ 300 mls/hr Q12HR IV Last administered on 02/04/20at 09:41; Start 02/03/20 at 11:00; Stop 02/04/20 at 10:18; Status DC Dextrose (Dextrose 50%-Water Syringe) 25 gm 1X ONCE IV Last administered on 02/03/20at 10:49; Start 02/03/20 at 10:45; Stop 02/03/20 at 10:47; Status DC Lidocaine/ Epinephrine (LIDOCAINE 1%-EPI 1:100,000 Multi-Dose) 20 ml STK-MED ONCE .ROUTE ; Start 02/03/20 at 14:52; Stop 02/03/20 at 14:52; Status DC Sodium Chloride 90 meq/Magnesium Sulfate 5 meq/ Multivitamins 10 ml/Chromium/ Copper/Manganese/ Seleni/Zn 1 ml/ Insulin Human Regular 10 unit/ Total Parenteral Nutrition/Amino Acids/Dextrose/ Fat Emulsion Intravenous 1,512 ml @ 63 mls/hr TPN CONT IV Last administered on 02/03/20at 21:49; Start 02/03/20 at 22 :00; Stop 02/04/20 at 21:59; Status DC Lidocaine/ Epinephrine (LIDOCAINE 1%-EPI 1:100,000 Multi-Dose) 20 ml 1X ONCE INJ Last administered on 02/03/20at 15:35; Start 02/03/20 at 15:15; Stop 02/03/20 at 15:16; Status DC Heparin Sodium (Porcine) (Hep Lock Adult) 500 unit STK-MED ONCE IVP ; Start 02/03/20 at 15:39; Stop 02/03/20 at 15:39; Status DC Heparin Sodium (Porcine) (Hep Lock Adult) 500 unit 1X ONCE IVP Last administered on 02/03/20at 15:45; Start 02/03/20 at 15:45; Stop 02/03/20 at 15:49; Status DC Insulin Human Lispro (HumaLOG) 15 units 1X ONCE SQ Last administered on 02/04/20at 08:40; Start 02/04/20 at 12:00; Stop 02/04/20 at 12:01; Status DC Insulin Human Lispro (HumaLOG) 0-9 UNITS TIDWMEALS SQ Last administered on 02/04/20at 14:44; Start 02/04/20 at 12:00; Stop 02/04/20 at 16:32; Status DC Dextrose (Dextrose 50%-Water Syringe) 12.5 gm PRN Q15MIN PRN IV SEE COMMENTS; Start 02/04/20 at 08:30 Clonidine HCl (Catapres Tts-1) 1 patch WEEKLY TD Last administered on 02/04/20at 11:36; Start 02/04/20 at 10:00; Stop 02/06/20 at 09:53; Status DC Heparin Sodium (Porcine) (Heparin Sodium) 5,000 unit Q12HR SQ Last administered on 02/06/20at 20:48; Start 02/04/20 at 10:15 Piperacillin Sod/ Tazobactam Sod 2.25 gm/Sodium Chloride 50 ml @ 100 mls/hr Q6HRS IV Last administered on 02/07/20at 05:37; Start 02/04/20 at 12:00 Sodium Chloride 20 meq/Sodium Acetate 70 meq/ Sodium Phosphate 13.6 mmol/ Magnesium Sulfate 5 meq/ Multivitamins 10 ml/Chromium/ Copper/Manganese/ Seleni/Zn 1 ml/ Insulin Human Regular 30 unit/ Total Parenteral Nutrition/Amino Acids/Dextrose/ Fat Emulsion Intravenous 1,512 ml @ 63 mls/hr TPN CONT IV Last administered on 02/04/20at 21:28; Start 02/04/20 at 22:00; Stop 02/05/20 at 21:59; Status DC Insulin Human Regular 100 unit/ Sodium Chloride 101 ml @ 0 mls/hr CONT PRN IV SEE I/O RECORD Last administered on 02/04/20at 21:30; Start 02/04/20 at 16:15; Stop 02/05/20 at 16:11; Status DC Levetiracetam 500 mg/Dextrose 105 ml @ 420 mls/hr Q12HR IV Last administered on 02/06/20at 20:43; Start 02/04/20 at 21:00 Fluconazole/ Sodium Chloride 100 ml @ 100 mls/hr Q24H IV Last administered on 02/06/20at 17:33; Start 02/04/20 at 17:00 Methylprednisolone Sodium Succinate (SOLU-Medrol 40MG VIAL) 40 mg Q12HR IV Last administered on 02/06/20at 09:08; Start 02/05/20 at 09:30; Stop 02/06/20 at 09:53; Status DC Nicardipine HCl 50 mg/Sodium Chloride 250 ml @ 25 mls/hr CONT PRN IV SEE I/O RECORD Last administered on 02/05/20at 22:06; Start 02/05/20 at 10:45 Magnesium Sulfate 50 ml @ 25 mls/hr 1X ONCE IV Last administered on 02/05/20at 12:54; Start 02/05/20 at 12:00; Stop 02/05/20 at 13:59; Status DC Potassium Phosphate 10 mmol/ Sodium Chloride 103.3333 ml @ 51.667 m... Q2H IV Last administered on 02/05/20at 15:41; Start 02/05/20 at 12:00; Stop 02/05/20 at 15:59; Status DC Non-Formulary Medication 1 ea/ Sodium Chloride 50 ml @ 50 mls/hr Q12HR IV Last administered on 02/06/20at 09:05; Start 02/05/20 at 21:00; Stop 02/06/20 at 10:32; Status DC Sodium Acetate 40 meq/Potassium Phosphate 20 mmol/ Magnesium Sulfate 10 meq/ Multivitamins 10 ml/Chromium/ Copper/Manganese/ Seleni/Zn 1 ml/ Insulin Human Regular 30 unit/ Potassium Acetate 30 meq/Total Parenteral Nutrition/Amino Acids/Dextrose/ Fat Emulsion Intravenous 1,512 ml @ 63 mls/hr TPN CONT IV Last administered on 02/05/20at 23:04; Start 02/05/20 at 22:00; Stop 02/06/20 at 21:59; Status DC Insulin Glargine (Lantus Syringe) 18 unit QHS SQ Last administered on 02/06/20at 20:45; Start 02/05/20 at 21:00 Insulin Human Lispro (HumaLOG) 0-9 UNITS Q4HRS SQ Last administered on 02/07/20at 00:18; Start 02/05/20 at 16:00 Clonidine HCl (Catapres Tts-1) 2 patch Tu TD Last administered on 02/06/20at 12:45; Start 02/06/20 at 09:45; Stop 02/06/20 at 12:47; Status DC Methylprednisolone Sodium Succinate (SOLU-Medrol 40MG VIAL) 40 mg DAILY IV ; Start 02/07/20 at 09:00 Tacrolimus 0.5 mg/ Sodium Chloride 50.1 ml @ 50.1 mls/hr Q12HR IV Last administered on 02/06/20at 20:49; Start 02/06/20 at 21:00 Tacrolimus (Prograf Inj) 5 mg STK-MED ONCE IV ; Start 02/05/20 at 23:30; Stop 02/06/20 at 10:33; Status DC Tacrolimus (Prograf Inj) 5 mg STK-MED ONCE IV ; Start 02/06/20 at 09:00; Stop 02/06/20 at 10:34; Status DC Sodium Acetate 40 meq/Potassium Acetate 30 meq/ Potassium Phosphate 20 mmol/ Magnesium Sulfate 10 meq/ Multivitamins 10 ml/Chromium/ Copper/Manganese/ Selen i/Zn 1 ml/ Insulin Human Regular 50 unit/ Total Parenteral Nutrition/Amino Acids/Dextrose/ Fat Emulsion Intravenous 1,512 ml @ 63 mls/hr TPN CONT IV Last administered on 02/06/20at 22:53; Start 02/06/20 at 22:00; Stop 02/07/20 at 21:59 Clonidine HCl (Catapres Tts-2) 1 patch WEEKLY TD Last administered on 02/06/20at 12:58; Start 02/06/20 at 13:00 Active Scripts Active Diflucan (Fluconazole) 100 Mg Tablet 200 Mg PO DAILY Reported Zyprexa (Olanzapine) 10 Mg Tablet 1 Tab PO QHS Trazodone Hcl 50 Mg Tablet 1 Tab PO QHS Seroquel (Quetiapine Fumarate) 25 Mg Tablet 25 Mg PO BID Humalog (Insulin Lispro) 100 Unit/1 Ml Vial 2 Unit SQ DAILYBFRLUN Lisinopril 20 Mg Tablet 1 Tab PO DAILY Acetaminophen 500 Mg Tablet 2 Tab PO PRN Q8HRS PRN 15 Days Prednisone 1 Mg Tablet 2 Mg PO DAILY Humalog (Insulin Lispro) 100 Unit/1 Ml Vial 8 Unit SQ DAILYBFRSUP Humalog (Insulin Lispro) 100 Unit/1 Ml Vial 4 Unit SQ DAILYWBKFT Hydralazine Hcl 25 Mg Tablet 1 Tab PO BID Aspir-Low (Aspirin) 81 Mg Tablet. 1 Tab PO DAILY Prograf (Tacrolimus) 1 Mg Capsule 0.5 Mg PO BID Levemir (Insulin Detemir) 100 Unit/1 Ml Vial 18 Unit SQ QHS Hold for FSBS below 90 and call Nephro-Stacey Tablet (Folic Acid/Vitamin B Comp W-C) 0.8 Mg Tablet 1 Tab PO DAILY Levetiracetam 500 Mg Tablet 500 Mg PO BID Vitals/I & O Vital Sign - Last 24 Hours 02/06/20 02/06/20 02/06/20 02/06/20 10:00 11:00 12:00 12:00 Temp 98.2 98.2 Pulse 76 78 80 Resp 23 24 23 B/P (MAP) 169/72 (104) 178/74 (108) 177/76 (109) Pulse Ox 98 99 98 O2 Delivery Room Air Room Air Room Air Room Air 02/06/20 02/06/20 02/06/20 02/06/20 13:00 14:00 15:00 16:00 Temp 97.6 97.6 Pulse 70 66 66 68 Resp 19 22 22 22 B/P (MAP) 181/71 (107) 166/63 (97) 156/72 (100) 159/64 (95) Pulse Ox 100 100 99 100 O2 Delivery Room Air Room Air Room Air Room Air 02/06/20 02/06/20 02/06/20 02/06/20 16:00 17:00 18:00 19:00 Pulse 67 67 64 Resp 22 22 16 B/P (MAP) 161/75 (103) 163/75 (104) 172/73 (106) Pulse Ox 100 100 100 O2 Delivery Room Air Room Air Room Air Room Air 02/06/20 02/06/20 02/06/20 02/06/20 19:40 20:00 20:00 20:47 Temp 97.7 97.7 Pulse 77 76 74 Resp 14 B/P (MAP) 187/71 220/74 (122) 184/88 Pulse Ox 100 O2 Delivery Room Air Room Air 02/06/20 02/06/20 02/06/20 02/07/20 21:00 22:00 23:00 00:00 Pulse 81 84 85 Resp 18 21 19 B/P (MAP) 190/87 (121) 179/95 (123) 177/89 (118) Pulse Ox 100 99 99 O2 Delivery Room Air Room Air Room Air Room Air 02/07/20 02/07/20 02/07/20 02/07/20 00:00 00:18 01:00 02:00 Temp 97.5 97.5 Pulse 89 85 88 89 Resp 27 32 25 B/P (MAP) 197/78 (117) 191/91 176/76 (109) 171/84 (113) Pulse Ox 98 100 100 O2 Delivery Room Air Room Air Room Air 02/07/20 02/07/20 02/07/20 02/07/20 03:00 03:01 03:30 03:45 Pulse 87 86 86 90 Resp 27 16 32 B/P (MAP) 190/85 (120) 190/85 190/85 (120) 162/92 (115) Pulse Ox 100 98 100 O2 Delivery Room Air Room Air Room Air 02/07/20 02/07/20 02/07/20 02/07/20 04:00 04:00 05:00 06:00 Temp 97.6 97.6 Pulse 90 86 88 Resp 37 31 21 B/P (MAP) 164/87 (112) 161/98 (119) 151/69 (96) Pulse Ox 92 100 97 O2 Delivery Room Air Room Air Room Air Room Air 02/07/20 07:00 Pulse 88 Resp 29 B/P (MAP) 160/67 (98) Pulse Ox 95 O2 Delivery Room Air Intake and Output 02/06/20 02/06/20 02/07/20 15:00 23:00 07:00 Intake Total 1050 ml 1000.1 ml 1693 ml Output Total 265 ml 590 ml 410 ml Balance 785 ml 410.1 ml 1283 ml Justicifation of Admission Dx: Justifications for Admission: Justification of Admission Dx: Yes Comminuty Aquired Pneumonia: Immunocomprimised Pt Sepsis: Altered Mental Status Altered Mental Status: Altered Mental Status ISELA WASHINGTON MD Feb 07, 2020 09:01
[2020-02-07] MEDS: levETIRAcetam 500 MG in IV DEXTROSE 5% 100ML 100 ML IV SCH ×2 (09:53→21:37)
[2020-02-07] MEDS: TACROLIMUS IV SCH ×2 (10:00→21:50)
[2020-02-07] MEDS: NORMAL SALINE IV SCH ×2 (10:00→21:50)
[2020-02-07] MEDS: hydrALAZINE 20 MG/ML VIAL. IVP PRN (10:01)
[2020-02-07] MEDS: HEPARIN for SUB-Q USE 5,000 UNIT/ML VIAL. SQ SCH ×2 (10:01→21:39)
--- NOTE | 2020-02-07 10:36 | PDOC ---
PROGRESS NOTES Subjective Subjective pt awake and talking Objective Objective Vital Signs Date Time Temp Pulse Resp B/P (MAP) Pulse Ox O2 Delivery O2 Flow Rate FiO2 02/07/20 10:01 84 160/68 02/07/20 07:00 29 95 Room Air 02/07/20 04:00 97.6 97.6 l Intake and Output 02/07/20 07:00 Intake Total 3743.1 ml Output Total 1265 ml Balance 2478.1 ml IV Total 3743.1 ml Output Urine Total 1265 ml # Bowel Movements 1 Physical Exam Abdomen: Soft Heart: Regular rate Extremities: No clubbing, No cyanosis General: Other (does not open eyes on exam) HEENT: Atraumatic Lungs: Clear to auscultation MUSCULOSKELETAL: No deformity, No swelling Neuro: Other (unesponsive) Skin: No rashes, No breakdown Diagnosis Problem List Problems Medical Problems: (1) Cough Status: Acute (2) Left-sided weakness Status: Acute Assessment Assessment Problems Medical Problems: (1) Cough Status: Acute (2) Left-sided weakness Status: Acute encephalopathy/mental status changes Acute sepsis ,E coli bacteremia gram neg bacteremia,positive blood c/s 2/4 bottles high sugars due to TPN Metabolic Encephalopathy. Brain MRI neg acute findings , old CVA History of epilepsy. Diabetes with peripheral neuropathy. h/o disseminated cryptococcus, on fluconazole. Gastroesophageal reflux disease. History of kidney transplant. Peripheral arterial disease. Chronic kidney disease, status post renal transplant. Coronary artery disease.s/p cabg COVID-19 neg, 01/23 Plan: clinically pt improving Plan of Care: Dobhoff tube feeeding d/c to select when bed availabe spoke with renal+ID stat CT head no new stroke or bleed family decided on code status,DNR positive blood c/s 2/4 gram neg,E Coli urine c/s -positive for infection, E coli cxr infiltrates both lungs wbc 18 due to steroids bun 99/cr 2.9 down to 70 /1.9 today bun 45/cr 1.7 central line placed d/c TPN iv Zosyn + for pneumonia an uti monitor kidney function dubhoff tube lovenox for DVT prevention off insulin drip . Off cardine drip spoke with family social service consult for select Plan Plan of Care Problems Medical Problems: (1) Cough Status: Acute (2) Left-sided weakness Status: Acute Comment Review of Relevant I have reviewed the following items warner (where applicable) has been applied. Labs Laboratory Tests Test 02/06/20 12:51 02/06/20 17:36 02/06/20 20:18 02/07/20 00:16 Glucose (Fingerstick) 201 mg/dL (70-99) 187 mg/dL (70-99) 213 mg/dL (70-99) 176 mg/dL (70-99) Test 02/07/20 04:06 02/07/20 05:00 Glucose (Fingerstick) 150 mg/dL (70-99) White Blood Count 18.3 x10^3/uL (4.0-11.0) Red Blood Count 4.12 x10^6/uL (3.50-5.40) Hemoglobin 10.5 g/dL (12.0-15.5) Hematocrit 32.8 % (36.0-47.0) Mean Corpuscular Volume 80 fL (79-100) Mean Corpuscular Hemoglobin 25 pg (25-35) Mean Corpuscular Hemoglobin Concent 32 g/dL (31-37) Red Cell Distribution Width 16.4 % (11.5-14.5) Platelet Count 288 x10^3/uL (140-400) Neutrophils (%) (Auto) 86 % (31-73) Lymphocytes (%) (Auto) 6 % (24-48) Monocytes (%) (Auto) 9 % (0-9) Eosinophils (%) (Auto) 0 % (0-3) Basophils (%) (Auto) 0 % (0-3) Neutrophils # (Auto) 15.7 x10^3/uL (1.8-7.7) Lymphocytes # (Auto) 1.1 x10^3/uL (1.0-4.8) Monocytes # (Auto) 1.6 x10^3/uL (0.0-1.1) Eosinophils # (Auto) 0.0 x10^3/uL (0.0-0.7) Basophils # (Auto) 0.0 x10^3/uL (0.0-0.2) Sodium Level 145 mmol/L (136-145) Potassium Level 3.5 mmol/L (3.5-5.1) Chloride Level 112 mmol/L (98-107) Carbon Dioxide Level 19 mmol/L (21-32) Anion Gap 14 (6-14) Blood Urea Nitrogen 64 mg/dL (7-20) Creatinine 1.5 mg/dL (0.6-1.0) Estimated GFR (Cockcroft-Gault) 42.0 Glucose Level 152 mg/dL (70-99) Calcium Level 9.2 mg/dL (8.5-10.1) Microbiology 02/05/20 Blood Culture - Preliminary, Resulted NO GROWTH AFTER 2 DAYS 02/04/20 Urine Culture - Final, Complete 02/04/20 Antimicrobic Susceptibility - Final, Complete Medications Current Medications Clonidine HCl (Catapres Tts-2) 1 patch WEEKLY TD Last administered on 02/06/20at 12:58; Start 02/06/20 at 13:00 Methylprednisolone Sodium Succinate (SOLU-Medrol 40MG VIAL) 40 mg DAILY IV ; Start 02/07/20 at 09:00 Sodium Acetate 40 meq/Potassium Acetate 30 meq/ Potassium Phosphate 20 mmol/ Magnesium Sulfate 10 meq/ Multivitamins 10 ml/Chromium/ Copper/Manganese/ Seleni/Zn 1 ml/ Insulin Human Regular 50 unit/ Total Parenteral Nutrition/Amino Acids/Dextrose/ Fat Emulsion Intravenous 1,512 ml @ 63 mls/hr TPN CONT IV Last administered on 02/06/20at 22:53; Start 02/06/20 at 22:00; Stop 02/07/20 at 21:59 Tacrolimus 0.5 mg/ Sodium Chloride 50.1 ml @ 50.1 mls/hr Q12HR IV Last administered on 02/07/20at 10:00; Start 02/06/20 at 21:00 Vitals/I & O Vital Sign - Last 24 Hours 02/06/20 02/06/20 02/06/20 02/06/20 11:00 12:00 12:00 13:00 Temp 98.2 98.2 Pulse 78 80 70 Resp 19 B/P (MAP) 178/74 (108) 177/76 (109) 181/71 (107) Pulse Ox 99 98 100 O2 Delivery Room Air Room Air Room Air Room Air 02/06/20 02/06/20 02/06/20 02/06/20 14:00 15:00 16:00 16:00 Temp 97.6 97.6 Pulse 66 66 68 Resp 22 22 22 B/P (MAP) 166/63 (97) 156/72 (100) 159/64 (95) Pulse Ox 100 99 100 O2 Delivery Room Air Room Air Room Air Room Air 02/06/20 02/06/20 02/06/20 02/06/20 17:00 18:00 19:00 19:40 Pulse 67 67 64 77 Resp 22 22 16 B/P (MAP) 161/75 (103) 163/75 (104) 172/73 (106) 187/71 Pulse Ox 100 100 100 O2 Delivery Room Air Room Air Room Air 02/06/20 02/06/20 02/06/20 02/06/20 20:00 20:00 20:47 21:00 Temp 97.7 97.7 Pulse 76 74 81 Resp 14 18 B/P (MAP) 220/74 (122) 184/88 190/87 (121) Pulse Ox 100 100 O2 Delivery Room Air Room Air Room Air 02/06/20 02/06/20 02/07/20 02/07/20 22:00 23:00 00:00 00:00 Temp 97.5 97.5 Pulse 84 85 89 Resp 21 19 27 B/P (MAP) 179/95 (123) 177/89 (118) 197/78 (117) Pulse Ox 99 99 98 O2 Delivery Room Air Room Air Room Air Room Air 02/07/20 02/07/20 02/07/20 02/07/20 00:18 01:00 02:00 03:00 Pulse 85 88 89 87 Resp 32 25 27 B/P (MAP) 191/91 176/76 (109) 171/84 (113) 190/85 (120) Pulse Ox 100 100 100 O2 Delivery Room Air Room Air Room Air 02/07/20 02/07/20 02/07/20 02/07/20 03:01 03:30 03:45 04:00 Pulse 86 86 90 Resp 16 32 B/P (MAP) 190/85 190/85 (120) 162/92 (115) Pulse Ox 98 100 O2 Delivery Room Air Room Air Room Air 02/07/20 02/07/20 02/07/20 02/07/20 04:00 05:00 06:00 07:00 Temp 97.6 97.6 Pulse 90 86 88 88 Resp 37 31 21 29 B/P (MAP) 164/87 (112) 161/98 (119) 151/69 (96) 160/67 (98) Pulse Ox 92 100 97 95 O2 Delivery Room Air Room Air Room Air Room Air 02/07/20 02/07/20 10:01 10:01 Pulse 84 84 B/P (MAP) 158/68 160/68 Intake and Output 02/06/20 02/06/20 02/07/20 15:00 23:00 07:00 Intake Total 1050 ml 1000.1 ml 1693 ml Output Total 265 ml 590 ml 410 ml Balance 785 ml 410.1 ml 1283 ml Justicifation of Admission Dx: Justifications for Admission: Justification of Admission Dx: Yes Comminuty Aquired Pneumonia: Immunocomprimised Pt Sepsis: Altered Mental Status Altered Mental Status: Altered Mental Status Nutrition Consultation Dietary Evaluation: Recommendations by RD: Dietary education by RD, PPN/TPN Comments: NPO per COMPUTER SYSTEMS TECHNICIAN REC TPN: 195 g dextrose, 60 g AA, 20 g lipid at this time as G tube placement is on hold. Expected Outcomes/Goals: New goal 02/02: to meet >60-65% est nutr needs via TPN - goal ongoing Malnutrition Findings: Body Fat Depletion (Non Severe: Mild Depletion Weight Status: Appropriate AUGUSTO BRUNER MD Feb 07, 2020 10:36
--- NOTE | 2020-02-07 10:41 | PDOC ---
PULMONARY PROGRESS NOTES Subjective More awake today remains on room air no concerns from nursing overnight Vitals Vital Signs Date Time Temp Pulse Resp B/P (MAP) Pulse Ox O2 Delivery O2 Flow Rate FiO2 02/07/20 10:01 84 160/68 02/07/20 07:00 29 95 Room Air 02/07/20 04:00 97.6 97.6 ROS: No Nausea, No Chest Pain, No Abdominal Pain, No Increase Cough General: Alert, No acute distress Lungs: Clear Cardiovascular: S1, S2 Abdomen: Soft, Non-tender Neuro Exam: Alert Extremities: Other Skin: Warm Labs Laboratory Tests Test 02/05/20 10:39 02/05/20 11:49 02/05/20 13:29 02/05/20 14:34 Glucose (Fingerstick) 180 mg/dL (70-99) 162 mg/dL (70-99) 126 mg/dL (70-99) 126 mg/dL (70-99) Test 02/05/20 15:38 02/05/20 22:03 02/06/20 02:15 02/06/20 05:50 Glucose (Fingerstick) 158 mg/dL (70-99) 357 mg/dL (70-99) 393 mg/dL (70-99) White Blood Count 13.6 x10^3/uL (4.0-11.0) Red Blood Count 4.04 x10^6/uL (3.50-5.40) Hemoglobin 10.2 g/dL (12.0-15.5) Hematocrit 32.2 % (36.0-47.0) Mean Corpuscular Volume 80 fL (79-100) Mean Corpuscular Hemoglobin 25 pg (25-35) Mean Corpuscular Hemoglobin Concent 32 g/dL (31-37) Red Cell Distribution Width 16.5 % (11.5-14.5) Platelet Count 268 x10^3/uL (140-400) Neutrophils (%) (Auto) 91 % (31-73) Lymphocytes (%) (Auto) 5 % (24-48) Monocytes (%) (Auto) 4 % (0-9) Eosinophils (%) (Auto) 0 % (0-3) Basophils (%) (Auto) 0 % (0-3) Neutrophils # (Auto) 12.4 x10^3/uL (1.8-7.7) Lymphocytes # (Auto) 0.6 x10^3/uL (1.0-4.8) Monocytes # (Auto) 0.6 x10^3/uL (0.0-1.1) Eosinophils # (Auto) 0.0 x10^3/uL (0.0-0.7) Basophils # (Auto) 0.0 x10^3/uL (0.0-0.2) Sodium Level 143 mmol/L (136-145) Potassium Level 3.7 mmol/L (3.5-5.1) Chloride Level 112 mmol/L (98-107) Carbon Dioxide Level 21 mmol/L (21-32) Anion Gap 10 (6-14) Blood Urea Nitrogen 64 mg/dL (7-20) Creatinine 1.8 mg/dL (0.6-1.0) Estimated GFR (Cockcroft-Gault) 34.1 Glucose Level 343 mg/dL (70-99) Calcium Level 9.2 mg/dL (8.5-10.1) Phosphorus Level 3.1 mg/dL (2.6-4.7) Magnesium Level 2.0 mg/dL (1.8-2.4) Test 02/06/20 05:55 02/06/20 12:51 02/06/20 17:36 02/06/20 20:18 Glucose (Fingerstick) 318 mg/dL (70-99) 201 mg/dL (70-99) 187 mg/dL (70-99) 213 mg/dL (70-99) Test 02/07/20 00:16 02/07/20 04:06 02/07/20 05:00 Glucose (Fingerstick) 176 mg/dL (70-99) 150 mg/dL (70-99) White Blood Count 18.3 x10^3/uL (4.0-11.0) Red Blood Count 4.12 x10^6/uL (3.50-5.40) Hemoglobin 10.5 g/dL (12.0-15.5) Hematocrit 32.8 % (36.0-47.0) Mean Corpuscular Volume 80 fL (79-100) Mean Corpuscular Hemoglobin 25 pg (25-35) Mean Corpuscular Hemoglobin Concent 32 g/dL (31-37) Red Cell Distribution Width 16.4 % (11.5-14.5) Platelet Count 288 x10^3/uL (140-400) Neutrophils (%) (Auto) 86 % (31-73) Lymphocytes (%) (Auto) 6 % (24-48) Monocytes (%) (Auto) 9 % (0-9) Eosinophils (%) (Auto) 0 % (0-3) Basophils (%) (Auto) 0 % (0-3) Neutrophils # (Auto) 15.7 x10^3/uL (1.8-7.7) Lymphocytes # (Auto) 1.1 x10^3/uL (1.0-4.8) Monocytes # (Auto) 1.6 x10^3/uL (0.0-1.1) Eosinophils # (Auto) 0.0 x10^3/uL (0.0-0.7) Basophils # (Auto) 0.0 x10^3/uL (0.0-0.2) Sodium Level 145 mmol/L (136-145) Potassium Level 3.5 mmol/L (3.5-5.1) Chloride Level 112 mmol/L (98-107) Carbon Dioxide Level 19 mmol/L (21-32) Anion Gap 14 (6-14) Blood Urea Nitrogen 64 mg/dL (7-20) Creatinine 1.5 mg/dL (0.6-1.0) Estimated GFR (Cockcroft-Gault) 42.0 Glucose Level 152 mg/dL (70-99) Calcium Level 9.2 mg/dL (8.5-10.1) Laboratory Tests Test 02/06/20 12:51 02/06/20 17:36 02/06/20 20:18 02/07/20 00:16 Glucose (Fingerstick) 201 mg/dL (70-99) 187 mg/dL (70-99) 213 mg/dL (70-99) 176 mg/dL (70-99) Test 02/07/20 04:06 02/07/20 05:00 Glucose (Fingerstick) 150 mg/dL (70-99) White Blood Count 18.3 x10^3/uL (4.0-11.0) Red Blood Count 4.12 x10^6/uL (3.50-5.40) Hemoglobin 10.5 g/dL (12.0-15.5) Hematocrit 32.8 % (36.0-47.0) Mean Corpuscular Volume 80 fL (79-100) Mean Corpuscular Hemoglobin 25 pg (25-35) Mean Corpuscular Hemoglobin Concent 32 g/dL (31-37) Red Cell Distribution Width 16.4 % (11.5-14.5) Platelet Count 288 x10^3/uL (140-400) Neutrophils (%) (Auto) 86 % (31-73) Lymphocytes (%) (Auto) 6 % (24-48) Monocytes (%) (Auto) 9 % (0-9) Eosinophils (%) (Auto) 0 % (0-3) Basophils (%) (Auto) 0 % (0-3) Neutrophils # (Auto) 15.7 x10^3/uL (1.8-7.7) Lymphocytes # (Auto) 1.1 x10^3/uL (1.0-4.8) Monocytes # (Auto) 1.6 x10^3/uL (0.0-1.1) Eosinophils # (Auto) 0.0 x10^3/uL (0.0-0.7) Basophils # (Auto) 0.0 x10^3/uL (0.0-0.2) Sodium Level 145 mmol/L (136-145) Potassium Level 3.5 mmol/L (3.5-5.1) Chloride Level 112 mmol/L (98-107) Carbon Dioxide Level 19 mmol/L (21-32) Anion Gap 14 (6-14) Blood Urea Nitrogen 64 mg/dL (7-20) Creatinine 1.5 mg/dL (0.6-1.0) Estimated GFR (Cockcroft-Gault) 42.0 Glucose Level 152 mg/dL (70-99) Calcium Level 9.2 mg/dL (8.5-10.1) Medications Active Scripts Medications Dose Route/Sig Max Daily Dose Days Date Category Dose Instructions Zyprexa (Olanzapine) 10 Mg Tablet 1 Tab PO QHS 01/24/20 Reported Trazodone Hcl 50 Mg Tablet 1 Tab PO QHS 01/24/20 Reported Seroquel (Quetiapine Fumarate) 25 Mg Tablet 25 Mg PO BID 01/24/20 Reported Humalog (Insulin Lispro) 100 Unit/1 Ml Vial 2 Unit SQ [id number] 01/24/20 Reported Lisinopril 20 Mg Tablet 1 Tab PO DAILY 01/24/20 Reported Acetaminophen 500 Mg Tablet 2 Tab PO PRN Q8HRS PRN 15 09/25/19 Reported Prednisone 1 Mg Tablet 2 Mg PO DAILY 09/25/19 Reported Humalog (Insulin Lispro) 100 Unit/1 Ml Vial 8 Unit SQ [id number] 09/25/19 Reported Humalog (Insulin Lispro) 100 Unit/1 Ml Vial 4 Unit SQ [id number] 09/25/19 Reported Hydralazine Hcl 25 Mg Tablet 1 Tab PO BID 09/25/19 Reported Aspir-Low (Aspirin) 81 Mg Tablet.dr 1 Tab PO DAILY 09/25/19 Reported Diflucan (Fluconazole) 100 Mg Tablet 200 Mg PO DAILY 04/30/16 Rx Prograf (Tacrolimus) 1 Mg Capsule 0.5 Mg PO BID 03/22/16 Reported Levemir (Insulin Detemir) 100 Unit/1 Ml Vial 18 Unit SQ QHS 02/25/16 Reported Hold for FSBS below 90 and call Nephro-Stacey Tablet (Folic Acid/Vitamin B Comp W-C) 0.8 Mg Tablet 1 Tab PO DAILY 02/25/16 Reported Levetiracetam 500 Mg Tablet 500 Mg PO BID 01/17/[address] head Impression: 1. No acute intracranial hemorrhage is identified. There is again old infarct with cortical involvement of centered in the right parietal lobe extending to the right occipital lobe. There is other ill-defined low-density of the supratentorial parenchyma, nonspecific findings which may be due to chronic microvascular ischemic disease. There are also old lacunar infarcts as stated. If there is suspicion for evolving or acute ischemia, follow-up CT or MRI could be beneficial. Impression . IMPRESSION: 1. The patient with stable lung nodules. Latest ct chest is from October 2019.. She has a 2 cm pleural based nodule in the right upper lobe, which is unchanged since 2018. In addition, she also has nodular opacity in the right lower lobe measuring about 1 cm in size. There is a 2 mm nodular opacity in the inferior aspect of the right lower lobe, which is unchanged. All these nodules have been stable since her CAT scan from 2019 as well as a CAT scan of the chest from 12/19/2017. Likely, this is a benign etiology. 2. Encephalopathy. worse . ct head and MRI neg for acute findings and negative on repeat CT/MRI 3. prior history of seizures and metabolic encephalopathy 4. Azotemia 5. Avoid benzo 6.E coli sepsis 02/02 2 out of 4 bottles, source E coli UTI Plan . RECOMMENDATIONS: From a pulmonary standpoint when comparisons were made to the nodules from 2018, they all have been stable. The last CT chest was from 10/2019 and oldest one is from 11/2017. These are likely benign nodules and have been stable for 2 years. no need for any further followup on CT chest. Follow Neurology recommendation. mri no acute abnl, old cva Follow Nephrology recommendation. Minimize benzodiazepines. avoid oversedation-- Ativan D/C covid19 neg Follow ID recs fro ABX Follow cultures --E coli sepsis 02/02 2 out of 4 bottles, source E coli UTI Discussed with RN and Family at bedside JOAQUIM POLANCO MD Feb 07, 2020 10:41
--- NOTE | 2020-02-07 10:45 | PDOC ---
Renal-Progress Notes Subjective Notes Notes CONFUSED BUT MORE AWAKE TODAY History of Present Illness Hx of present illness NO CHANGE Vitals Vitals Vital Signs Date Time Temp Pulse Resp B/P (MAP) Pulse Ox O2 Delivery O2 Flow Rate FiO2 02/07/20 10:01 84 160/68 02/07/20 07:00 29 95 Room Air 02/07/20 04:00 97.6 97.6 Weight Weight [ ] I.O. Intake and Output Intake and Output 02/07/20 07:00 Intake Total 3743.1 ml Output Total 1265 ml Balance 2478.1 ml IV Total 3743.1 ml Output Urine Total 1265 ml # Bowel Movements 1 Labs Labs Laboratory Tests Test 02/06/20 12:51 02/06/20 17:36 02/06/20 20:18 02/07/20 00:16 Glucose (Fingerstick) 201 mg/dL (70-99) 187 mg/dL (70-99) 213 mg/dL (70-99) 176 mg/dL (70-99) Test 02/07/20 04:06 02/07/20 05:00 Glucose (Fingerstick) 150 mg/dL (70-99) White Blood Count 18.3 x10^3/uL (4.0-11.0) Red Blood Count 4.12 x10^6/uL (3.50-5.40) Hemoglobin 10.5 g/dL (12.0-15.5) Hematocrit 32.8 % (36.0-47.0) Mean Corpuscular Volume 80 fL (79-100) Mean Corpuscular Hemoglobin 25 pg (25-35) Mean Corpuscular Hemoglobin Concent 32 g/dL (31-37) Red Cell Distribution Width 16.4 % (11.5-14.5) Platelet Count 288 x10^3/uL (140-400) Neutrophils (%) (Auto) 86 % (31-73) Lymphocytes (%) (Auto) 6 % (24-48) Monocytes (%) (Auto) 9 % (0-9) Eosinophils (%) (Auto) 0 % (0-3) Basophils (%) (Auto) 0 % (0-3) Neutrophils # (Auto) 15.7 x10^3/uL (1.8-7.7) Lymphocytes # (Auto) 1.1 x10^3/uL (1.0-4.8) Monocytes # (Auto) 1.6 x10^3/uL (0.0-1.1) Eosinophils # (Auto) 0.0 x10^3/uL (0.0-0.7) Basophils # (Auto) 0.0 x10^3/uL (0.0-0.2) Sodium Level 145 mmol/L (136-145) Potassium Level 3.5 mmol/L (3.5-5.1) Chloride Level 112 mmol/L (98-107) Carbon Dioxide Level 19 mmol/L (21-32) Anion Gap 14 (6-14) Blood Urea Nitrogen 64 mg/dL (7-20) Creatinine 1.5 mg/dL (0.6-1.0) Estimated GFR (Cockcroft-Gault) 42.0 Glucose Level 152 mg/dL (70-99) Calcium Level 9.2 mg/dL (8.5-10.1) Micro Micro Microbiology 02/05/20 Blood Culture - Preliminary, Resulted NO GROWTH AFTER 2 DAYS 02/04/20 Urine Culture - Final, Complete 02/04/20 Antimicrobic Susceptibility - Final, Complete Review of Systems Constitutional: yes: other (CONFUSED) Physical Exam General Appearance: no apparent distress Skin: warm Respiratory: bilateral CTA Heart: S1S2 Abdomen: soft, bowel sounds present Genitourinary: bladder flat Extremities: pulses present Neurology: confused Assessment Assessment IMP HYPOKALEMIA-BETTER HYPOTENSION-BETTER HX OF RENAL TX CAN - CKD - CR OF 1.5 LOW MAG AND PO4 HX OF CRYTOCOCCUS HX OF EPILEPSY ENCEPHALOPATHY CVA PLAN IN ICU OFF HER QUOC-I CONT HYDRATION ON HYPERALIMENTATION UNSTABLE FOR G TUBE CONT SUPPORTIVE CARE CONT PREDNISONE AND PROGRAF CHANGED PROGRAF TO IV IDEALLY NGT SO WE CAN DO ENTERAL NUTRITION AND CHANGE PROGRAF TO ENTERAL UPDATED FAMILY POSSIBLE SELECT TRANSFER SOON POOR PROGNOSIS D/W ATTENDING WILL FOLLOW MO RODRIGUEZ MD Feb 07, 2020 10:45
--- NOTE | 2020-02-07 12:03 | RAD ---
EXAM: KUB 02/07/2020 11:16 AM CLINICAL INDICATION:Dobbhoff placement COMPARISON:CT abdomen and pelvis 02/04/2020 TECHNIQUE:AP view of the abdomen for tube placement FINDINGS:New nasogastric tube tip is extending to the gastroesophageal junction with the metal tip coiled and oriented retrograde in the distal esophagus. Recommend advancing at least 5 cm for intragastric positioning. Median sternotomy wires, probable epicardial pacer wires, and coronary artery stents noted. IMPRESSION:Nasogastric tube coiled in the distal esophagus with tip oriented cranially. Recommend advancing at least 5 cm for intragastric position. Electronically signed by: Graciela Curry MD (02/07/2020 12:00 PM) [id number]
--- NOTE | 2020-02-07 12:18 | PDOC ---
SURGICAL PROGRESS NOTE Subjective seen during dobhoff placement plans for select today Vital Signs Vital Signs Date Time Temp Pulse Resp B/P (MAP) Pulse Ox O2 Delivery O2 Flow Rate FiO2 02/07/20 10:01 84 160/68 02/07/20 07:00 29 95 Room Air 02/07/20 04:00 97.6 97.6 I&O Intake and Output 02/07/20 07:00 Intake Total 3743.1 ml Output Total 1315 ml Balance 2428.1 ml IV Total 3743.1 ml Output Urine Total 1315 ml # Bowel Movements 1 General: Cooperative Abdomen: Soft Labs Laboratory Tests Test 02/05/20 13:29 02/05/20 14:34 02/05/20 15:38 02/05/20 22:03 Glucose (Fingerstick) 126 mg/dL (70-99) 126 mg/dL (70-99) 158 mg/dL (70-99) 357 mg/dL (70-99) Test 02/06/20 02:15 02/06/20 05:50 02/06/20 05:55 02/06/20 12:51 Glucose (Fingerstick) 393 mg/dL (70-99) 318 mg/dL (70-99) 201 mg/dL (70-99) White Blood Count 13.6 x10^3/uL (4.0-11.0) Red Blood Count 4.04 x10^6/uL (3.50-5.40) Hemoglobin 10.2 g/dL (12.0-15.5) Hematocrit 32.2 % (36.0-47.0) Mean Corpuscular Volume 80 fL (79-100) Mean Corpuscular Hemoglobin 25 pg (25-35) Mean Corpuscular Hemoglobin Concent 32 g/dL (31-37) Red Cell Distribution Width 16.5 % (11.5-14.5) Platelet Count 268 x10^3/uL (140-400) Neutrophils (%) (Auto) 91 % (31-73) Lymphocytes (%) (Auto) 5 % (24-48) Monocytes (%) (Auto) 4 % (0-9) Eosinophils (%) (Auto) 0 % (0-3) Basophils (%) (Auto) 0 % (0-3) Neutrophils # (Auto) 12.4 x10^3/uL (1.8-7.7) Lymphocytes # (Auto) 0.6 x10^3/uL (1.0-4.8) Monocytes # (Auto) 0.6 x10^3/uL (0.0-1.1) Eosinophils # (Auto) 0.0 x10^3/uL (0.0-0.7) Basophils # (Auto) 0.0 x10^3/uL (0.0-0.2) Sodium Level 143 mmol/L (136-145) Potassium Level 3.7 mmol/L (3.5-5.1) Chloride Level 112 mmol/L (98-107) Carbon Dioxide Level 21 mmol/L (21-32) Anion Gap 10 (6-14) Blood Urea Nitrogen 64 mg/dL (7-20) Creatinine 1.8 mg/dL (0.6-1.0) Estimated GFR (Cockcroft-Gault) 34.1 Glucose Level 343 mg/dL (70-99) Calcium Level 9.2 mg/dL (8.5-10.1) Phosphorus Level 3.1 mg/dL (2.6-4.7) Magnesium Level 2.0 mg/dL (1.8-2.4) Test 02/06/20 17:36 02/06/20 20:18 02/07/20 00:16 02/07/20 04:06 Glucose (Fingerstick) 187 mg/dL (70-99) 213 mg/dL (70-99) 176 mg/dL (70-99) 150 mg/dL (70-99) Test 02/07/20 05:00 White Blood Count 18.3 x10^3/uL (4.0-11.0) Red Blood Count 4.12 x10^6/uL (3.50-5.40) Hemoglobin 10.5 g/dL (12.0-15.5) Hematocrit 32.8 % (36.0-47.0) Mean Corpuscular Volume 80 fL (79-100) Mean Corpuscular Hemoglobin 25 pg (25-35) Mean Corpuscular Hemoglobin Concent 32 g/dL (31-37) Red Cell Distribution Width 16.4 % (11.5-14.5) Platelet Count 288 x10^3/uL (140-400) Neutrophils (%) (Auto) 86 % (31-73) Lymphocytes (%) (Auto) 6 % (24-48) Monocytes (%) (Auto) 9 % (0-9) Eosinophils (%) (Auto) 0 % (0-3) Basophils (%) (Auto) 0 % (0-3) Neutrophils # (Auto) 15.7 x10^3/uL (1.8-7.7) Lymphocytes # (Auto) 1.1 x10^3/uL (1.0-4.8) Monocytes # (Auto) 1.6 x10^3/uL (0.0-1.1) Eosinophils # (Auto) 0.0 x10^3/uL (0.0-0.7) Basophils # (Auto) 0.0 x10^3/uL (0.0-0.2) Sodium Level 145 mmol/L (136-145) Potassium Level 3.5 mmol/L (3.5-5.1) Chloride Level 112 mmol/L (98-107) Carbon Dioxide Level 19 mmol/L (21-32) Anion Gap 14 (6-14) Blood Urea Nitrogen 64 mg/dL (7-20) Creatinine 1.5 mg/dL (0.6-1.0) Estimated GFR (Cockcroft-Gault) 42.0 Glucose Level 152 mg/dL (70-99) Calcium Level 9.2 mg/dL (8.5-10.1) Laboratory Tests Test 02/06/20 12:51 02/06/20 17:36 02/06/20 20:18 02/07/20 00:16 Glucose (Fingerstick) 201 mg/dL (70-99) 187 mg/dL (70-99) 213 mg/dL (70-99) 176 mg/dL (70-99) Test 02/07/20 04:06 02/07/20 05:00 Glucose (Fingerstick) 150 mg/dL (70-99) White Blood Count 18.3 x10^3/uL (4.0-11.0) Red Blood Count 4.12 x10^6/uL (3.50-5.40) Hemoglobin 10.5 g/dL (12.0-15.5) Hematocrit 32.8 % (36.0-47.0) Mean Corpuscular Volume 80 fL (79-100) Mean Corpuscular Hemoglobin 25 pg (25-35) Mean Corpuscular Hemoglobin Concent 32 g/dL (31-37) Red Cell Distribution Width 16.4 % (11.5-14.5) Platelet Count 288 x10^3/uL (140-400) Neutrophils (%) (Auto) 86 % (31-73) Lymphocytes (%) (Auto) 6 % (24-48) Monocytes (%) (Auto) 9 % (0-9) Eosinophils (%) (Auto) 0 % (0-3) Basophils (%) (Auto) 0 % (0-3) Neutrophils # (Auto) 15.7 x10^3/uL (1.8-7.7) Lymphocytes # (Auto) 1.1 x10^3/uL (1.0-4.8) Monocytes # (Auto) 1.6 x10^3/uL (0.0-1.1) Eosinophils # (Auto) 0.0 x10^3/uL (0.0-0.7) Basophils # (Auto) 0.0 x10^3/uL (0.0-0.2) Sodium Level 145 mmol/L (136-145) Potassium Level 3.5 mmol/L (3.5-5.1) Chloride Level 112 mmol/L (98-107) Carbon Dioxide Level 19 mmol/L (21-32) Anion Gap 14 (6-14) Blood Urea Nitrogen 64 mg/dL (7-20) Creatinine 1.5 mg/dL (0.6-1.0) Estimated GFR (Cockcroft-Gault) 42.0 Glucose Level 152 mg/dL (70-99) Calcium Level 9.2 mg/dL (8.5-10.1) Problem List Problems Medical Problems: (1) Cough Status: Acute (2) Left-sided weakness Status: Acute Assessment/Plan will sign off please re-consult if g tube needed Justicifation of Admission Dx: Justifications for Admission: Justification of Admission Dx: Yes Comminuty Aquired Pneumonia: Immunocomprimised Pt Sepsis: Altered Mental Status Altered Mental Status: Altered Mental Status STEVEN MCCRARY APRN Feb 07, 2020 12:18
--- NOTE | 2020-02-07 13:00 | RAD ---
AP abdomen radiograph 02/07/2020 Clinical history: Feeding tube placement. An AP portable semierect digital radiograph of the abdomen to include the majority of the chest was obtained. A right internal jugular central venous catheter is seen with its tip extending to overlie the superior vena cava. The patient is post CABG procedure. A feeding tube has been placed. The tip of this tube overlies the gastric cardia. Perihilar infiltrates are seen involving both lungs likely reflect pulmonary edema from CHF. There is mild cardiomegaly. The visualized abdominal bowel gas pattern is nonobstructive. There is diffuse osteopenia the visualized bony structures. Degenerative changes are seen involving the thoracic and lumbar spine. IMPRESSION: The tip of the feeding tube overlies the gastric cardia. Electronically signed by: Alexys Crane MD (02/07/2020 12:57 PM) [id number]
--- NOTE | 2020-02-07 13:04 | RAD ---
PROCEDURE: KUB STUDY DATE: 02/07/2020 CLINICAL INDICATION / HISTORY: Reason: dobhoff placement / Spl. Instructions: / History: . TECHNIQUE: Single AP image of the abdomen was obtained. COMPARISON: 02/07/2020 earlier same day abdomen x-ray FINDINGS: There is been interval advancement of the weighted tip feeding tube with the tip now projecting over the proximal duodenum. The stylet remains in place. Bowel gas pattern in the included field of view is unremarkable. Partially imaged right jugular approach central venous catheter is redemonstrated along with upper normal heart size and post coronary stenting and sternotomy surgical changes with broken inferior cerclage wire noted.. IMPRESSION: Interval advancement of the weighted tip enteric feeding tube to the location of the proximal duodenum. Electronically signed by: Rosanne Holland MD (02/07/2020 1:01 PM) [id number]
--- NOTE | 2020-02-07 13:22 | NUR ---
SS following up with discharge planning. Bed available at [facility], ; fax [phone]. Pt will discharge today and go to [facility] at 1930 via [facility] ambulance, . SS currently waiting on discharge med rec to be completed. Pt and pt's daughter notified. Packet, ambulance form, and med rec on the chart. SS will fax med rec once completed.
--- NOTE | 2020-02-07 15:40 | NUR ---
SS following up with discharge planning. Discharge orders received. SS phoned and faxed discharged orders to [facility], ; fax [phone]. Pt's RN notified.
[2020-02-07] MEDS: FLUCONAZOLE 200MG/100ML PREMIX 100 ML IV SCH (17:51)
[2020-02-07] MEDS: INSULIN GLARGINE SYRINGE. SQ SCH (21:15)
--- NOTE | 2020-02-07 22:00 | NUR ---
Called the [facility] at 2114 to see when patient was going to be picked up for [facility] transfer. Told they were busy but she would be next. Pt was transferred at 2200. VSS. Patients bedtime BG was 74 so insulins were held. [facility] was called with this and an updated report.
--- NOTE | 2020-02-08 19:37 | PDOC ---
Provider Note Provider Note Discharge summary dictated.#[id number]. Justicifation of Admission Dx: Justifications for Admission: Justification of Admission Dx: Yes Comminuty Aquired Pneumonia: Immunocomprimised Pt Sepsis: Altered Mental Status Altered Mental Status: Altered Mental Status AUGUSTO BRUNER MD Feb 08, 2020 19:37
--- NOTE | 2020-02-08 21:11 | DS ---
DATE OF DISCHARGE: 02/07/2020 REASON FOR ADMISSION TO THE HOSPITAL: Mental status changes, confusion, left-sided numbness. CONSULTATIONS: 1. Neurology, Dr. Small. 2. Ines Khan from Rehabilitation. 3. GI, Dr. Morrow. 4. General Surgery, Dr. Nava. 5. Dr. Cotton. 6. Dr. Galicia from Infectious Disease. PROCEDURES DONE: 1. CT head. 2. MRI of the brain. 2. Lumbar puncture. 3. CT of the abdomen and pelvis. 4. Central line placement. HOSPITAL COURSE: The patient is a 64-year-old female. She is immunocompromised. She has a history of kidney transplant more than 10 years ago. She is on immunosuppressants. She also had a cryptococcal infection, chronic lung infection. She is on maintenance dose of Diflucan. She also had previous strokes, diabetes, hypertension, peripheral vascular disease, coronary artery disease, previous bypass surgery, multiple infections and previous toes amputated. [place] in a detention. Staff noticed weakness, confusion and cough and then she was admitted to the hospital. CT head, no stroke. COVID test was negative. Had an MRI of the brain, no new stroke. Had previous old strokes. The patient still continues to have confusion and encephalopathy, not eating. The patient was recommended to a PEG tube placement. GI did EGD, but not able to place a PEG tube because there is no enough window. This happened on Monday. Over the weekend, patient got sick with fever, confusion, shortness of breath. The patient had developed sepsis with Escherichia E. coli, E. coli bacteremia, E. coli in the urine and possible infection in the transplanted kidney and also the patient has developed bilateral lung infiltrates. The patient was moved to the ICU. Code status was discussed with the patient's family, decided DNR. The patient had a central line placed for TPN, IV antibiotics. The patient's condition slowly was improving and it was felt that the patient would need to go to LTAC facility for continuation of IV antibiotics. Nutrition, physical therapy and the patient was transferred to [facility]. FINAL DIAGNOSES: 1. Sepsis, gram-negative secondary to Escherichia coli. 2. Escherichia coli, complicated with possible pyelonephritis affecting the transplanted kidney. 3. Immunosuppression secondary to chronic kidney transplant. 4. Insulin-dependent diabetes. 5. Coronary artery disease, history of previous bypass surgery. 6. Peripheral vascular disease, history of previous toe amputations. 7. History of cryptococcal lung infection, on chronic suppressants with Diflucan. 8. General mobility and decline. PLAN: At this time, transfer to LTAC facility for IV antibiotics, tube feeding, Dobhoff. PT, OT and see how she improves in the next couple of weeks. AUGUSTO BRUNER MD DR: DENISE/jeanie JOB#: [id number] / [id number]
== END 2020-02-07 22:00 | DRG 70 ==
LOC: ER 14:34 → ED HOLD 18:20 → 6 SOUTH 22:29 → 1 WEST ICU 01-24 06:40 → 6 SOUTH 01-25 10:40 → 1 WEST ICU 02-05 10:44
PROVIDERS: ADMIT Internal Medicine; ATTEND Internal Medicine
PROC: 0DJ63ZZ Inspection of Stomach, Percutaneous Approach (ICD-10-PCS; principal; 2020-01-23)
PROC: 009U3ZX Drainage of Spinal Canal, Percutaneous Approach, Diagnostic (ICD-10-PCS; 2020-01-27)
PROC: B01B1ZZ Fluoroscopy of Spinal Cord using Low Osmolar Contrast (ICD-10-PCS; 2020-01-27)
PROC: 0JH63XZ Insertion of Tunneled Vascular Access Device into Chest Subcutaneous Tissue and Fascia, Percutaneous Approach (ICD-10-PCS; 2020-02-03)
PROC: 02HV33Z Insertion of Infusion Device into Superior Vena Cava, Percutaneous Approach (ICD-10-PCS; 2020-02-03)
PROC: B5181ZA Fluoroscopy of Superior Vena Cava using Low Osmolar Contrast, Guidance (ICD-10-PCS; 2020-02-03)
PROC: B548ZZA Ultrasonography of Superior Vena Cava, Guidance (ICD-10-PCS; 2020-02-03)
DX: G93.41 Metabolic encephalopathy (principal); A41.51 Sepsis due to Escherichia coli [E. coli]; N18.6 End stage renal disease; N17.9 Acute kidney failure, unspecified; I13.2 Hypertensive heart and chronic kidney disease with heart failure and with stage 5 chronic kidney disease, or end stage renal disease; B45.7 Disseminated cryptococcosis; T86.13 Kidney transplant infection; N12 Tubulo-interstitial nephritis, not specified as acute or chronic; Z66 Do not resuscitate; E87.5 Hyperkalemia; E87.6 Hypokalemia; I16.0 Hypertensive urgency; Z20.828 Contact with and (suspected) exposure to other viral communicable diseases; G40.909 Epilepsy, unspecified, not intractable, without status epilepticus; I50.9 Heart failure, unspecified; I25.10 Atherosclerotic heart disease of native coronary artery without angina pectoris; E78.00 Pure hypercholesterolemia, unspecified; F32.9 Major depressive disorder, single episode, unspecified; F41.9 Anxiety disorder, unspecified; K64.9 Unspecified hemorrhoids; E11.22 Type 2 diabetes mellitus with diabetic chronic kidney disease; R91.1 Solitary pulmonary nodule; E11.42 Type 2 diabetes mellitus with diabetic polyneuropathy; E78.5 Hyperlipidemia, unspecified; E11.65 Type 2 diabetes mellitus with hyperglycemia; F20.9 Schizophrenia, unspecified; F03.90 Unspecified dementia, unspecified severity, without behavioral disturbance, psychotic disturbance, mood disturbance, and anxiety; G89.29 Other chronic pain; R68.2 Dry mouth, unspecified; G93.89 Other specified disorders of brain; J44.9 Chronic obstructive pulmonary disease, unspecified; K21.9 Gastro-esophageal reflux disease without esophagitis; K80.20 Calculus of gallbladder without cholecystitis without obstruction; Y83.0 Surgical operation with transplant of whole organ as the cause of abnormal reaction of the patient, or of later complication, without mention of misadventure at the time of the procedure; E04.2 Nontoxic multinodular goiter; E11.51 Type 2 diabetes mellitus with diabetic peripheral angiopathy without gangrene; R13.12 Dysphagia, oropharyngeal phase; Z87.891 Personal history of nicotine dependence; Z90.710 Acquired absence of both cervix and uterus; Z95.1 Presence of aortocoronary bypass graft; Z91.09 Other allergy status, other than to drugs and biological substances; Z82.49 Family history of ischemic heart disease and other diseases of the circulatory system; Z86.73 Personal history of transient ischemic attack (TIA), and cerebral infarction without residual deficits; Z95.5 Presence of coronary angioplasty implant and graft; Z89.429 Acquired absence of other toe(s), unspecified side; Z87.19 Personal history of other diseases of the digestive system; Z86.14 Personal history of Methicillin resistant Staphylococcus aureus infection; Z83.3 Family history of diabetes mellitus; Z82.0 Family history of epilepsy and other diseases of the nervous system; Z79.899 Other long term (current) drug therapy; Z79.4 Long term (current) use of insulin; Z87.01 Personal history of pneumonia (recurrent)
CPT/HCPCS: 36415; 36558; 43235; 51702; 51798; 62270; 70450; 70551; 71045; 74018; 74176; 76937; 77001; 80048; 80053; 80061; 80197; 81001; 82945; 82962; 83605; 83735; 84100; 84157; 84443; 84478; 84484; 85007; 85025; 85610; 85730; 87040; 87086; 87205; 87529; 87899; 89051; 93005; 96365; 96366; C1751; C1892; J0360; J0610; J1450; J1642; J1644; J1650; J1815; J1953; J2020; J2060; J2543; J2704; J2920; J3475; J3490; J7030; J7042; J7050; J7060; J7507; J7512; J7525; 92526-GN; 92610-GN; 97530-GO; 97530-GP; 97535-GO; 99285-25; G0378; U0003-CS